=== PATIENT | female | born 1970 | race American Indian/Alaskan Native ===

== ENCOUNTER 2017-03-18 22:54 | Inpatient (IN) | payer MEDICARE ==
[2017-03-18] MEDS ORDERED: DUONEB 0.5 MG-3 MG/3 ML SOLN IH ONE ×2 (23:02→23:36)
[2017-03-18] MEDS ORDERED: MAGNESIUM SULFATE 2GM/50ML 2 GM/50 ML BAG IV ONE (23:22)
[2017-03-18] MEDS ORDERED: PROVENTIL IH ONE (23:37)
[2017-03-18 23:52] LABS: Basophils % (Auto) 0.2 % (0.0-1.8); Hematocrit 38.2 % (30.3-42.9); Mean Corpuscular HGB Conc 31 % (30-34); Mean Corpuscular Hemoglobin 27 pg (28-32); Mean Corpuscular Volume 85 fl (79-97); Platelet Count 221 K/mm3 (140-440); Red Blood Count 4.49 M/mm3 (3.65-5.03); Red Cell Distribution Width 13.5 % (13.2-15.2); White Blood Count 12.7 K/mm3 (4.5-11.0)
--- NOTE | 2017-03-19 00:01 | Emergency Department Report ---
HPI - General Chief Complaint: Adult Asthma Time Seen by Provider: 03/18/17 23:36 - HPI HPI: The patient is a 46-year-old female presents for evaluation of dyspnea. Patient has a history of asthma. The patient reports constant and severe shortness of breath since this afternoon, nearly 12 hours ago, exacerbated with physical activity or exertion, not improved with home albuterol inhaler. She also reports a associated nonproductive cough and wheezing of same duration. She shares that she has a history of endotracheal intubation due to status asthmaticus. hemoptysis, unilateral leg swelling, oral contraceptive use, recent immobilization, history of DVT or PE, recent cancer, history of familial coagulation disorder. ED Past Medical Hx - Past Medical History Hx Hypertension: Yes Hx Heart Attack/AMI: No Hx Congestive Heart Failure: No Hx Diabetes: No Hx Deep Vein Thrombosis: No Hx Pulmonary Embolism: No Hx Asthma: Yes Hx COPD: No Hx Tuberculosis: No Hx HIV: No Additional medical history: (5) previous intubations due to asthma complications - Surgical History Hx Coronary Stent: No Hx Open Heart Surgery: No Hx Pacemaker: No Hx Internal Defibrillator: No Hx Cholecystectomy: No Hx Appendectomy: No Hx Breast Surgery: No Additional Surgical History: tubal ligation - Social History Smoking Status: Never Smoker Substance Use Type: None - Medications Home Medications: Home Medications Medication Instructions Recorded Confirmed Last Taken Type Albuterol Sulfate [Proair 90 mcg IH Q4HR PRN #2 aer.pow.ba 03/21/17 Unknown Rx Respiclick] Azithromycin [Zithromax TAB] 250 mg PO QDAY #5 tablet 03/21/17 Unknown Rx Fluticasone/Salmeterol [Advair 2 puff IH BID #1 blst.w.dev 03/21/17 Unknown Rx Diskus 500-50 mcg] Ipratropium [Atrovent NEB] 0.5 mg IH Q4HR #120 each 03/21/17 Unknown Rx Montelukast [Singulair] 10 mg PO QPM #30 tablet 03/21/17 Unknown Rx Prednisone [predniSONE 10 mg 10 mg PO .TAPER #1 tab.ds.pk 03/21/17 Unknown Rx (6-Day Pack, 21 Tabs)] Ranitidine HCl [Zantac 150 MG TAB] 150 mg PO BID #60 tablet 03/21/17 Unknown Rx ED Review of Systems ROS: Stated complaint: DINA Other details as noted in HPI Constitutional: denies: fever ENT: denies: throat or neck pain Respiratory: reports cough, shortness of breath Cardiovascular: denies: chest pain Endocrine: denies unexplained weight loss or gain Gastrointestinal: denies: abdominal pain, nausea Genitourinary: denies: dysuria Musculoskeletal: denies: leg swelling Skin: denies: rash Neurological: denies: headache Hematological/Lymphatic: denies: easy bleeding or easy bruising Psych: denies sadness or hopelessness Physical Exam - Physical Exam Vital Signs: Vital Signs 03/18/17 03/18/17 03/18/17 23:03 23:20 23:23 Temperature 98 F Pulse Rate 125 H 117 H Pulse Rate [ 122 H Posterior Bilateral Throughout] Respiratory 24 25 H Rate Respiratory 21 Rate [Posterior Bilateral Throughout] Blood Pressure 166/96 Blood Pressure 166/96 [Left] Blood Pressure [Right] O2 Sat by Pulse 99 100 Oximetry 03/18/17 23:31 Temperature Pulse Rate 107 H Pulse Rate [ Posterior Bilateral Throughout] Respiratory 18 Rate Respiratory Rate [Posterior Bilateral Throughout] Blood Pressure Blood Pressure [Left] Blood Pressure 160/82 [Right] O2 Sat by Pulse 100 Oximetry Physical Exam: General: well-nourished, well-developed, no acute distress Head: Normocephalic, atraumatic Eyes: normal sclera ENT: Mucous membranes are pink and moist Neck: trachea midline, neck supple, No neck stiffness, no cervical adenopathy Respiratory: Diminished breath sounds and wheezing present throughout lung schuster bilaterally, positive costal retractions, mild respirtatory distress Cardio: S1 and S2 present, no murmurs, rubs, gallops, capillary refill is brisk Abdomen: Normoactive bowel sounds, soft abdomen, no rigidity, no guarding or rebound tenderness Musc: No pitting edema Skin: No rash Neuro: no facial drooping, normal speech Psych: Normal affect ED Course Vital Signs 03/18/17 03/18/17 03/18/17 23:03 23:20 23:23 Temperature 98 F Pulse Rate 125 H 117 H Pulse Rate [ 122 H Posterior Bilateral Throughout] Respiratory 24 25 H Rate Respiratory 21 Rate [Posterior Bilateral Throughout] Blood Pressure 166/96 Blood Pressure 166/96 [Left] Blood Pressure [Right] O2 Sat by Pulse 99 100 Oximetry 03/18/17 23:31 Temperature Pulse Rate 107 H Pulse Rate [ Posterior Bilateral Throughout] Respiratory 18 Rate Respiratory Rate [Posterior Bilateral Throughout] Blood Pressure Blood Pressure [Left] Blood Pressure 160/82 [Right] O2 Sat by Pulse 100 Oximetry ED Medical Decision Making - Lab Data Result diagrams: 03/20/17 04:24 03/20/17 04:24 - Medical Decision Making The patient was seen and examined by myself. The patient is placed on a personal property assessor and continuous pulse ox. On initial evaluation, the patient was found to be in no distress. Evaluation orders were placed. The patient is given a DuoNeb breathing treatment, IV magnesium, and IV Solu-Medrol for txt of asthma. Chest x-ray negative for focal consolidation, pleural effusions, pulmonary congestion, pneumothorax, or other acute cardio pulmonary disease process. Lab results reveal elevated WBC 12, and otherwise are grossly not concerning. On reevaluation the patient's found to remain with wheezing throughout lung schuster, on the work of breathing significantly improved. As patient remains tachypnea with wheezing throughout lung schuster, patient symptoms are consistent with status asthmaticus. The on-call hospitalist service was contacted. They agreed to admit the patient for further treatment and close monitoring. The ED admit order was placed. The patient was admitted in guarded condition. Critical care attestation.: If time is entered above; I have spent that time in minutes in the direct care of this critically ill patient, excluding procedure time. ED Disposition Clinical Impression: Acute exacerbation of COPD with asthma Status asthmaticus Qualifiers: Asthma severity: mild persistent Qualified Code(s): J45.32 - Mild persistent asthma with status asthmaticus Disposition: OP ADMITTED IP TO THIS HOSP Is pt being admited?: Yes Does the pt Need Aspirin: Yes Condition: Serious Time of Disposition: 23:58
[2017-03-19 01:35] LABS: Anion Gap 17 mmol/L; BUN/Creatinine Ratio 18.88; Blood Urea Nitrogen 17 mg/dL (7-17); Calcium 8.5 mg/dL (8.4-10.2); Carbon Dioxide 24 mmol/L (22-30); Chloride 102.2 mmol/L (98-107); Glucose 143 mg/dL (65-100); Potassium 3.6 mmol/L (3.6-5.0); Sodium 140 mmol/L (137-145)
[2017-03-19] MEDS ORDERED: MILK OF MAGNESIA PO PRN (02:31)
[2017-03-19] MEDS ORDERED: TYLENOL PO PRN (02:31)
[2017-03-19] MEDS ORDERED: DULCOLAX PR PRN (02:31)
[2017-03-19] MEDS ORDERED: ZOFRAN IV PRN (02:31)
--- NOTE | 2017-03-19 02:33 | History and Physical Report ---
History of Present Illness Date of examination: 03/19/17 History of present illness: 45-year-old woman with a history of asthma comes to emergency room with complaints of shortness of breath, nonproductive cough that started today. She used her nebulizer treatments without success. Patient states her house was very hot which flared her asthma Patient denies chest pain, palpitation, abdominal pain, hematochezia, dysuria, frequency, focal weakness, dysarthria, fever chills, polydipsia polyuria, hot or cold intolerance, easy bruisability, or rash or bleeding from mucosal membrane, rhinorrhea, epistaxis, earache, tinnitus, blurry vision, eye discharge , anxiety, depression. Other review of systems negative PAST SURGICAL HISTORY: Tubal ligation SOCIAL HISTORY: Denies alcohol, tobacco, drugs FAMILY HISTORY: Hypertension Medications and Allergies Allergies Allergy/AdvReac Type Severity Reaction Status Date / Time No Known Allergies Allergy Verified 02/01/16 07:55 Home Medications Medication Instructions Recorded Confirmed Last Taken Type Albuterol Sulfate [Proair 90 mcg IH Q4HR PRN #2 aer.pow.ba 08/03/16 03/18/17 Rx Respiclick] Fluticasone/Salmeterol [Advair 2 puff IH BID #1 blst.w.dev 08/03/16 03/18/17 Rx Diskus 500-50 mcg] Ipratropium [Atrovent NEB] 0.5 mg IH Q4HR #2 ml 08/03/16 03/18/17 03/18/17 Rx Montelukast [Singulair] 10 mg PO QPM #30 tablet 08/03/16 03/18/17 03/18/17 Rx Ranitidine HCl [Zantac 150 MG TAB] 150 mg PO BID #60 tablet 08/03/16 03/18/17 Rx Azithromycin [Zithromax TAB] 500 mg PO QDAY #3 tablet 02/28/17 03/18/17 Rx predniSONE [Deltasone] 50 mg PO QDAY #5 tab 02/28/17 03/18/17 03/18/17 Rx Exam - Physical Exam Narrative exam: Gen. appearance: Patient lying in bed, no apparent distress HEENT: Normocephalic, atraumatic, pupils equally round and reactive to light, extraocular movement intact, and no sclericterus,. No JVD or thyromegaly or nodule,neck supple, no carotid bruit ,mucous membranes moist, no exudate or erythema Heart: S1, S2, regular rate and rhythm Lungs:wheezing bilaterally, breathing comfortable Abdomen: Positive bowel sounds, nontender, nondistended, no organomegaly Extremity: No edema, cyanosis, clubbing Skin: No rash, nodules, warm, dry Neuro: Oriented 3, cranial nerves II-12 intact, speech is fluent, motor and sensory intact - Constitutional Vitals: Temp Pulse Resp BP Pulse Ox 98 F 97 H 17 124/58 100 03/18/17 23:03 03/19/17 02:15 03/19/17 02:15 03/19/17 02:15 03/19/17 02:15 Results - Labs CBC & Chem 7: 03/18/17 23:43 03/19/17 00:37 Labs: Abnormal lab results 03/18/17 03/19/17 Range/Units 23:43 00:37 WBC 12.7 H (4.5-11.0) K/mm3 MCH 27 L (28-32) pg Eos % (Auto) 9.0 H (0.0-4.3) % [place] # 0.9 H (0.0-0.8) K/mm3 Eos # 1.1 H (0.0-0.4) K/mm3 Seg Neutrophils # 8.9 H (1.8-7.7) K/mm3 Glucose 143 H (65-100) mg/dL - Imaging and Cardiology EKG: image reviewed Chest x-ray: image reviewed Assessment and Plan Asthma exacerbation Admit to medicine Start IV high-dose steroids, nebulizer treatments, DVT prophylaxis
[2017-03-19 06:45] LABS: ISTAT Base Excess -3; ISTAT HCO3 22.3; ISTAT PCO2 41.4 (35-45); ISTAT PO2 98 (80-105); ISTAT SO2 97; ISTAT TCO2 24
[2017-03-19] MEDS: DUONEB 0.5 MG-3 MG/3 ML SOLN IH SCH ×3 (07:35→20:27)
--- NOTE | 2017-03-19 07:41 | Admit Criteria Form ---
Admission Criteria Documentation: ASTHMA Clinical Indications for Admission to Inpatient Care (Place 'X' for any and all applicable criteria): Admission is indicated for ANY ONE of the following (1)(2)(3)(4)(5): [ ]I. Absent or markedly diminished breath sounds (silent chest) [ ]II. Oxygen saturation < 92% [ ]III. PaCO2 = / > 42 mm Hg (5.6 kPa) [ ]IV. Peak expiratory flow rate < 40% of predicted or personal best after treatment. [ ]V. Peak expiratory flow rate < 33% of predicted or personal before after treatment [ ]. Change in mental status [ ]VII. Ventilatory support required [ ]VIII. PaO2 < 60 mm Hg (8.0 kPa) [ ]IX. Cyanosis [ ]X. Cardiac dysrhythmia (e.g., bradycardia) [ ]XI. Hemodynamic instability [ ]XII. Radiographic evidence of complication requiring inpatient treatment (e.g., pneumonia, pneumothorax) [X]XIII. Inpatient admission required rather than observation care (also use Asthma: Observation Care guideline as appropriate) because of ANY ONE of the following: [X]a) Respiratory finding that is severe or persistent (eg, dyspnea, tachypnea, accessory muscle use) [ ]b) Airflow measurements less than 60% of predicted or personal best that persist (e.g., over 24 hours) or worsen despite treatments [ ]c) Supplemental oxygen or respiratory treatments for over 24 hours that are performable only in acute inpatient setting [ ]d) Other condition, treatment or monitoring requiring inpatient admission. Extended stay beyond goal length of stay may be needed for (26)(27)(28): [ ]a) Severe respiratory failure (23) (29) (30) [ ]b) Secondary causes and complications (25) [ ]c) Status asthmaticus [ ]d) Chronic obstructive asthma [ ]e) Older patients (29) [ ]f) Slow resolution [ ]g) Clinically significant exacerbation of comorbidities (eg, davey. heart failure, atrial fibrillation) The original [employer] content created by [employer] has been revised. The portions of the content which have been revised are identified through the use of italic text or in bold, and [employer] has neither reviewed nor approved the modified material. All other unmodified content is copyright [employer] Please see references footnoted in the original [facility] edition 2016 Admission Criteria Met: Yes
--- NOTE | 2017-03-19 08:08 | XRay Report ---
AP CHEST : 03/19/17 00:11 CLINICAL: Chest pain. COMPARISON:02/26/17 FINDINGS: Normal heart and pulmonary vessels. The lungs are normally expanded and clear. The bones and soft tissues are unremarkable. IMPRESSION: Normal chest.
[2017-03-19] MEDS: LOVENOX SUB-Q SCH (11:30)
[2017-03-19] MEDS: ZITHROMAX PO SCH (15:37)
[2017-03-19] MEDS: LEVAQUIN 750MG/150ML 750 MG/150 ML BAG IV SCH (15:37)
[2017-03-19] MEDS: SINGULAIR PO SCH (18:30)
[2017-03-19] MEDS ORDERED: NON-FORMULARY (Ranitidine Hcl [Zantac 150 Mg Tab] 150 MG) PO SCH (22:00)
[2017-03-19] MEDS: PEPCID PO SCH (22:18)
[2017-03-20] MEDS: DUONEB 0.5 MG-3 MG/3 ML SOLN IH SCH ×4 (01:29→20:10)
[2017-03-20 05:11] LABS: Hematocrit 37.9 % (30.3-42.9); Hemoglobin 11.8 gm/dl (10.1-14.3); Mean Corpuscular HGB Conc 31 % (30-34); Mean Corpuscular Hemoglobin 27 pg (28-32); Mean Corpuscular Volume 87 fl (79-97); Platelet Count 178 K/mm3 (140-440); Red Blood Count 4.36 M/mm3 (3.65-5.03); Red Cell Distribution Width 13.7 % (13.2-15.2); White Blood Count 17.3 K/mm3 (4.5-11.0)
[2017-03-20 05:22] LABS: Anion Gap 19 mmol/L; Blood Urea Nitrogen 14 mg/dL (7-17); Calcium 8.9 mg/dL (8.4-10.2); Carbon Dioxide 19 mmol/L (22-30); Glucose 166 mg/dL (65-100); Sodium 138 mmol/L (137-145)
[2017-03-20 05:46] LABS: Potassium 4.4 mmol/L (3.6-5.0)
[2017-03-20 06:15] LABS: Basophils % (Manual) 0 % (0.0-1.8); Blastocytes % (Manual) 0 %; Eosinophils % (Manual) 0 % (0.0-4.3)
[2017-03-20 06:16] LABS: Diff Status Complete; RBC Morphology Normal
--- NOTE | 2017-03-20 08:46 | Progress Note ---
Assessment and Plan Assessment and plan: 46-year-old woman with past medical history of COPD/asthma who presents with COPD exacerbation 1. COPD exacerbation Continue steroids and nebulizers and antibiotics 2. Acute hypoxic respiratory failure Continue oxygen supplementation, wean off oxygen when able History Interval history: She continues to have shortness of breath wheezing and cough. Slightly improved Hospitalist Physical - Physical exam Narrative exam: General: Patient appears well in no distress HEENT: MMM, EOMI cardiac: S1-S2 heard lungs:improved air entry, rare expiratory wheezing abdomen: soft, nontender, nondistended bowel sounds positive extremities: no edema clubbing or cyanosis Skin: no rash or lesion Neuro: no focal deficit Psych: appropriate behavior and mood, cognition intact - Constitutional Vitals: Temp Pulse Resp BP Pulse Ox 98.3 F 94 H 18 118/70 96 03/20/17 07:35 03/20/17 07:35 03/20/17 07:35 03/20/17 07:35 03/20/17 07:35 Results - Labs CBC & Chem 7: 03/20/17 04:24 03/20/17 04:24 Labs: Laboratory Last Values WBC 17.3 K/mm3 (4.5-11.0) H 03/20/17 04:24 RBC 4.36 M/mm3 (3.65-5.03) 03/20/17 04:24 Hgb 11.8 gm/dl (10.1-14.3) 03/20/17 04:24 Hct 37.9 % (30.3-42.9) 03/20/17 04:24 MCV 87 fl (79-97) 03/20/17 04:24 MCH 27 pg (28-32) L 03/20/17 04:24 MCHC 31 % (30-34) 03/20/17 04:24 RDW 13.7 % (13.2-15.2) 03/20/17 04:24 Plt Count 178 K/mm3 (140-440) 03/20/17 04:24 Lymph % (Auto) 13.9 % (13.4-35.0) 03/18/17 23:43 Davidson % (Auto) 7.2 % (0.0-7.3) 03/18/17 23:43 Eos % (Auto) 9.0 % (0.0-4.3) H 03/18/17 23:43 Baso % (Auto) 0.2 % (0.0-1.8) 03/18/17 23:43 Lymph # 1.8 K/mm3 (1.2-5.4) 03/18/17 23:43 Davidson # 0.9 K/mm3 (0.0-0.8) H 03/18/17 23:43 Eos # 1.1 K/mm3 (0.0-0.4) H 03/18/17 23:43 Baso # 0.0 K/mm3 (0.0-0.1) 03/18/17 23:43 Add Manual Diff Complete 03/20/17 04:24 Total Counted 100 03/20/17 04:24 Seg Neutrophils % Coremaker Bench 03/20/17 04:24 Seg Neuts % (Manual) 98.0 % (40.0-70.0) H 03/20/17 04:24 Band Neutrophils % 0 % 03/20/17 04:24 Lymphocytes % (Manual) 0 % (13.4-35.0) L 03/20/17 04:24 Reactive Lymphs % (Man) 0 % 03/20/17 04:24 Monocytes % (Manual) 2.0 % (0.0-7.3) 03/20/17 04:24 Eosinophils % (Manual) 0 % (0.0-4.3) 03/20/17 04:24 Basophils % (Manual) 0 % (0.0-1.8) 03/20/17 04:24 Metamyelocytes % 0 % 03/20/17 04:24 Myelocytes % 0 % 03/20/17 04:24 Promyelocytes % 0 % 03/20/17 04:24 Blast Cells % 0 % 03/20/17 04:24 Nucleated RBC % Not Reportable 03/20/17 04:24 Seg Neutrophils # 8.9 K/mm3 (1.8-7.7) H 03/18/17 23:43 Seg Neutrophils # Man 17.0 K/mm3 (1.8-7.7) H 03/20/17 04:24 Band Neutrophils # 0.0 K/mm3 03/20/17 04:24 Lymphocytes # (Manual) 0.0 K/mm3 (1.2-5.4) L 03/20/17 04:24 Abs React Lymphs (Man) 0.0 K/mm3 03/20/17 04:24 Monocytes # (Manual) 0.3 K/mm3 (0.0-0.8) 03/20/17 04:24 Eosinophils # (Manual) 0.0 K/mm3 (0.0-0.4) 03/20/17 04:24 Basophils # (Manual) 0.0 K/mm3 (0.0-0.1) 03/20/17 04:24 Metamyelocytes # 0.0 K/mm3 03/20/17 04:24 Myelocytes # 0.0 K/mm3 03/20/17 04:24 Promyelocytes # 0.0 K/mm3 03/20/17 04:24 Blast Cells # 0.0 K/mm3 03/20/17 04:24 WBC Morphology Not Reportable 03/20/17 04:24 Hypersegmented Neuts Not Reportable 03/20/17 04:24 Hyposegmented Neuts Not Reportable 03/20/17 04:24 Hypogranular Neuts Not Reportable 03/20/17 04:24 Smudge Cells Not Reportable 03/20/17 04:24 Toxic Granulation Not Reportable 03/20/17 04:24 Toxic Vacuolation Not Reportable 03/20/17 04:24 Dohle Bodies Not Reportable 03/20/17 04:24 Pelger-Huet Anomaly Not Reportable 03/20/17 04:24 Elvin Rods Not Reportable 03/20/17 04:24 Platelet Estimate Appears normal 03/20/17 04:24 Clumped Platelets Not Reportable 03/20/17 04:24 Plt Clumps, EDTA Not Reportable 03/20/17 04:24 Large Platelets Not Reportable 03/20/17 04:24 Giant Platelets Not Reportable 03/20/17 04:24 Platelet Satelliting Not Reportable 03/20/17 04:24 Plt Morphology Comment Not Reportable 03/20/17 04:24 RBC Morphology Normal 03/20/17 04:24 Dimorphic RBCs Not Reportable 03/20/17 04:24 Polychromasia Not Reportable 03/20/17 04:24 Hypochromasia Not Reportable 03/20/17 04:24 Poikilocytosis Not Reportable 03/20/17 04:24 Anisocytosis Not Reportable 03/20/17 04:24 Microcytosis Not Reportable 03/20/17 04:24 Macrocytosis Not Reportable 03/20/17 04:24 Spherocytes Not Reportable 03/20/17 04:24 Pappenheimer Bodies Not Reportable 03/20/17 04:24 Sickle Cells Not Reportable 03/20/17 04:24 Target Cells Not Reportable 03/20/17 04:24 Tear Drop Cells Not Reportable 03/20/17 04:24 Ovalocytes Not Reportable 03/20/17 04:24 Helmet Cells Not Reportable 03/20/17 04:24 Buckner-[place] Bodies Not Reportable 03/20/17 04:24 [place] Rings Not Reportable 03/20/17 04:24 Yusra Cells Not Reportable 03/20/17 04:24 Bite Cells Not Reportable 03/20/17 04:24 Crenated Cell Not Reportable 03/20/17 04:24 Elliptocytes Not Reportable 03/20/17 04:24 Acanthocytes (Spur) Not Reportable 03/20/17 04:24 Rouleaux Not Reportable 03/20/17 04:24 Hemoglobin C Crystals Not Reportable 03/20/17 04:24 Schistocytes Not Reportable 03/20/17 04:24 Malaria parasites Not Reportable 03/20/17 04:24 Sean Bodies Not Reportable 03/20/17 04:24 Hem Pathologist Commnt No 03/20/17 04:24 POC ABG pH 7.340 (7.35-7.45) L 03/19/17 06:35 POC ABG pCO2 41.4 (35-45) 03/19/17 06:35 POC ABG pO2 98 (80-105) 03/19/17 06:35 POC ABG HCO3 22.3 03/19/17 06:35 POC ABG Total CO2 24 03/19/17 06:35 POC ABG O2 Sat 97 03/19/17 06:35 POC ABG Base Excess -3 03/19/17 06:35 FiO2 30 % 03/19/17 06:35 Sodium 138 mmol/L (137-145) 03/20/17 04:24 Potassium 4.4 mmol/L (3.6-5.0) D 03/20/17 04:24 Chloride 104.0 mmol/L (98-107) 03/20/17 04:24 Carbon Dioxide 19 mmol/L (22-30) L 03/20/17 04:24 Anion Gap 19 mmol/L 03/20/17 04:24 BUN 14 mg/dL (7-17) 03/20/17 04:24 Creatinine 0.8 mg/dL (0.7-1.2) 03/20/17 04:24 Estimated GFR > 60 ml/min 03/20/17 04:24 BUN/Creatinine Ratio 17.50 % 03/20/17 04:24 Glucose 166 mg/dL (65-100) H 03/20/17 04:24 POC Glucose 149 (70-105) H 03/20/17 06:22 Calcium 8.9 mg/dL (8.4-10.2) 03/20/17 04:24 NT-Pro-B Natriuret Pep 12.65 pg/mL (0-450) 03/19/17 00:37 HCG, Qual Negative (Negative) 03/18/17 23:43
[2017-03-20] MEDS ORDERED: AZITHROMYCIN 500 MG PO SCH (10:00)
[2017-03-20] MEDS: LEVAQUIN 750MG/150ML 750 MG/150 ML BAG IV SCH (10:24)
[2017-03-20] MEDS: PEPCID PO SCH ×2 (10:25→22:00)
[2017-03-20] MEDS: ZITHROMAX PO SCH (10:25)
[2017-03-20] MEDS: LOVENOX SUB-Q SCH (10:26)
[2017-03-20] MEDS: SINGULAIR PO SCH (18:04)
[2017-03-21] MEDS: DUONEB 0.5 MG-3 MG/3 ML SOLN IH SCH ×3 (01:30→12:59)
--- NOTE | 2017-03-21 08:05 | Discharge Summary ---
Providers - Providers Date of Admission: 03/19/17 02:31 Attending physician: ADRIÁN PARSONS MD Primary care physician: SMOKE ROOM OPERATOR Hospitalization Condition: Stable Hospital course: 46-year-old woman with past medical history of COPD/asthma who presents with COPD exacerbation, she was found to have acute hypoxic respiratory failure. She was treated with supplemental oxygen, steroids and nebulizers and antibiotics. She admitted that she had run out of her home inhalers and nebulizer treatments. She has not followed for her construction equipment mechanic Dr. Leoanrd in over 6 months. She was counseled about compliance, she clinically improved with treatments and was improved upon discharge 1. COPD exacerbation Continue steroids and nebulizers and antibiotics 2. Acute hypoxic respiratory failure Continue oxygen supplementation, wean off oxygen when able Disposition: DISCHARGED TO HOME OR SELFCARE Time spent for discharge: 35 minutes Core Measure Documentation - Palliative Care Palliative Care/ Comfort Measures: Not Applicable - Core Measures Any of the following diagnoses?: none - Heart Failure Discharge Requirements VICTOR HUGO/ARB for LVSD if EF <40%: Yes Exam - Constitutional Vitals: Temp Pulse Resp BP Pulse Ox 98.1 F 77 18 130/70 98 03/21/17 07:30 03/21/17 07:30 03/21/17 07:30 03/21/17 07:30 03/21/17 07:30 General appearance: Present: no acute distress, well-nourished - EENT Eyes: Present: PERRL ENT: hearing intact, clear oral mucosa - Neck Neck: Present: supple, normal ROM - Respiratory Respiratory effort: normal Respiratory: bilateral: CTA - Cardiovascular Heart Sounds: Present: S1 & S2. Absent: rub, click - Extremities Extremities: pulses symmetrical, No edema Peripheral Pulses: within normal limits - Abdominal General gastrointestinal: Present: soft, non-tender, non-distended, normal bowel sounds Female genitourinary: Present: normal - Integumentary Integumentary: Present: clear, warm, dry - Musculoskeletal Musculoskeletal: gait normal, strength equal bilaterally - Psychiatric Psychiatric: appropriate mood/affect, intact judgment & insight - Neurologic Neurologic: CNII-XII intact, moves all extremities Plan Follow up with: PRIMARY CARE, [Primary Care Provider] - 7 Days Prescriptions: Albuterol Sulfate [Proair Respiclick] 90 mcg IH Q4HR PRN #2 aer.pow.ba PRN Reason: Wheezing Azithromycin [Zithromax TAB] 250 mg PO QDAY #5 tablet Fluticasone/Salmeterol [Advair Diskus 500-50 mcg] 2 puff IH BID #1 blst.w.dev Ipratropium [Atrovent NEB] 0.5 mg IH Q4HR #120 each Montelukast [Singulair] 10 mg PO QPM #30 tablet Prednisone [predniSONE 10 mg (6-Day Pack, 21 Tabs)] 10 mg PO .TAPER #1 tab.ds.pk Ranitidine HCl [Zantac 150 MG TAB] 150 mg PO BID #60 tablet
[2017-03-21] MEDS: LEVAQUIN 750MG/150ML 750 MG/150 ML BAG IV SCH ×2 (10:24→11:17)
[2017-03-21] MEDS: ZITHROMAX PO SCH (10:25)
[2017-03-21] MEDS: LOVENOX SUB-Q SCH (10:26)
[2017-03-21] MEDS: PEPCID PO SCH (10:26)
[2017-03-21] MEDS ORDERED: LEVAQUIN PO SCH (13:00)
[2017-03-21 15:33] VITALS: BP 140/80
[2017-03-22] MEDS ORDERED: LEVAQUIN PO ONE (11:30)
== END 2017-03-21 13:40 | disposition home or self-care (01) | DRG 189 ==
LOC: ED 22:54 → 3A 03-19 02:31
PROVIDERS: ADMIT Internal Medicine; ATTEND Internal Medicine
PROC: 4A033R1 Measurement of Arterial Saturation, Peripheral, Percutaneous Approach (ICD-10-PCS; principal; 2017-03-19)
DX: J96.01 Acute respiratory failure with hypoxia (principal); J44.1 Chronic obstructive pulmonary disease with (acute) exacerbation; J45.902 Unspecified asthma with status asthmaticus; Z98.51 Tubal ligation status; Z82.49 Family history of ischemic heart disease and other diseases of the circulatory system
CPT/HCPCS: 36415; 36600; 71010; 80048; 82803; 82962; 83880; 84703; 85007; 85025; 94640; 94760; 96365; 96375; J1650; J1956; J2930; J3475

== ENCOUNTER 2019-09-13 18:18 | Inpatient (IN) | payer MEDICARE ==
[2019-09-13] MEDS ORDERED: PROVENTIL IH ONE (18:30)
[2019-09-13] MEDS ORDERED: ATROVENT IH ONE (18:30)
[2019-09-13] MEDS ORDERED: ADRENALINE P/F SUB-Q ONE (18:30)
--- NOTE | 2019-09-13 18:33 | Emergency Department Report ---
<NIECY ROBERTSON - Last Filed: 09/13/19 18:27> ED Shortness of Breath HPI - General Stated Complaint: ASTHMA/DINA Time Seen by Provider: 09/13/19 18:26 Source: patient, EMS, old records reviewed Limitations: No Limitations - History of Present Illness Initial Comments: 49-year-old -Mosoth[place] female presents to the emergency room via EMS for shortness of breath 3 days. Patient reports that she has gotten worse today. Patient denies any URI symptoms, fever, runny nose, nasal congestion , diaphoresis, nausea and vomiting. Patient has a past medical history of asthma with history of 5 intubations and multiple hospital visits. She reports that her symptoms today are similar to symptoms she says in the past with her asthma exacerbation. MD Complaint: shortness of breath Onset/Timin -: days(s) Pain Scale: 0 Improves With: oxygen, bronchodilators, upright position Known History Of: asthma Associated Symptoms: denies other symptoms Treatments Prior to Arrival: bronchodilator - Related Data Previous Rx's Medication Instructions Recorded Last Taken Type Albuterol Sulfate [Proair 90 mcg IH Q4HR PRN #2 aer.pow.ba 03/21/17 Unknown Rx Respiclick] Azithromycin [Zithromax TAB] 250 mg PO QDAY #5 tablet 03/21/17 Unknown Rx Fluticasone/Salmeterol [Advair 2 puff IH BID #1 blst.w.dev 03/21/17 Unknown Rx Diskus 500-50 mcg] Ipratropium [Atrovent NEB] 0.5 mg IH Q4HR #120 each 03/21/17 Unknown Rx Montelukast [Singulair] 10 mg PO QPM #30 tablet 03/21/17 Unknown Rx Prednisone [predniSONE 10 mg 10 mg PO .TAPER #1 tab.ds.pk 03/21/17 Unknown Rx (6-Day Pack, 21 Tabs)] raNITIdine HCl [Zantac] 150 mg PO BID #60 tablet 03/21/17 Unknown Rx Allergies Allergy/AdvReac Type Severity Reaction Status Date / Time No Known Allergies Allergy Verified 02/01/16 07:55 ED Review of Systems Comment: All other systems reviewed and negative Respiratory: cough, shortness of breath, wheezing ED Past Medical Hx - Past Medical History Hx Hypertension: Yes Hx Heart Attack/AMI: No Hx Congestive Heart Failure: No Hx Diabetes: No Hx Deep Vein Thrombosis: No Hx Pulmonary Embolism: No Hx Asthma: Yes Hx COPD: No Hx Tuberculosis: No Hx HIV: No Additional medical history: (5) previous intubations due to asthma complications - Surgical History Hx Coronary Stent: No Hx Open Heart Surgery: No Hx Pacemaker: No Hx Internal Defibrillator: No Hx Cholecystectomy: No Hx Appendectomy: No Hx Breast Surgery: No Additional Surgical History: tubal ligation - Social History Smoking Status: Never Smoker Substance Use Type: None - Medications Home Medications: Home Medications Medication Instructions Recorded Confirmed Last Taken Type Albuterol Sulfate [Proair 90 mcg IH Q4HR PRN #2 aer.pow.ba 03/21/17 Unknown Rx Respiclick] Azithromycin [Zithromax TAB] 250 mg PO QDAY #5 tablet 03/21/17 Unknown Rx Fluticasone/Salmeterol [Advair 2 puff IH BID #1 blst.w.dev 03/21/17 Unknown Rx Diskus 500-50 mcg] Ipratropium [Atrovent NEB] 0.5 mg IH Q4HR #120 each 03/21/17 Unknown Rx Montelukast [Singulair] 10 mg PO QPM #30 tablet 03/21/17 Unknown Rx Prednisone [predniSONE 10 mg 10 mg PO .TAPER #1 tab.ds.pk 03/21/17 Unknown Rx (6-Day Pack, 21 Tabs)] raNITIdine HCl [Zantac] 150 mg PO BID #60 tablet 03/21/17 Unknown Rx ED Physical Exam - General General appearance: alert, in distress, other (comes in with nebulizer treatment) - Head Head exam: Present: atraumatic, normocephalic - Eye Eye exam: Present: normal appearance, EOMI. Absent: scleral icterus - ENT ENT exam: Present: mucous membranes moist, normal external ear exam - Neck Neck exam: Present: normal inspection, full ROM - Respiratory Respiratory exam: Present: wheezes, accessory muscle use, prolonged expiratory - Cardiovascular Cardiovascular Exam: Present: tachycardia - GI/Abdominal GI/Abdominal exam: Present: soft, normal bowel sounds - Rectal Rectal exam: Present: deferred - Neurological Exam Neurological exam: Present: alert, oriented X3 - Psychiatric Psychiatric exam: Present: normal affect, normal mood - Skin Skin exam: Present: warm, dry, intact, normal color. Absent: rash ED Medical Decision Making - Medical Decision Making 49-year-old -Mos[place] female presents to the emergency room via EMS for shortness of breath 3 days. Patient reports that she has gotten worse today. Patient denies any URI symptoms, fever, runny nose, nasal congestion , diaphoresis, nausea and vomiting. Patient has a past medical history of asthma with history of 5 intubations and multiple hospital visits. She reports that her symptoms today are similar to symptoms she says in the past with her asthma exacerbation. Chest x-ray, Atrovent 1 mg neb treatment, albuterol 10 mg neb treatment, patient has received magnesium and Solu-Medrol and albuterol 7.5 mg by EMS. Patient will be given epi 0.3 mg subcutaneous. Patient will be placed on BiPAP with IPAP of 14 and EPAP of 8. Normal saline bolus ED Disposition Clinical Impression: Status asthmaticus Qualifiers: Asthma severity: mild persistent Qualified Code(s): J45.32 - Mild persistent asthma with status asthmaticus Disposition: 09 OP ADMIT IP TO THIS HOSP Is pt being admited?: Yes Does the pt Need Aspirin: Yes Condition: Serious <JENI PAREDES - Last Filed: 09/13/19 23:48> ED Review of Systems ROS: Stated complaint: ASTHMA/DINA Other details as noted in HPI ED Course Vital Signs 09/13/19 09/13/19 09/13/19 18:20 18:32 18:37 Temperature 98.2 F Pulse Rate 118 H Respiratory 22 22 Rate Blood Pressure 140/60 O2 Sat by Pulse 100 100 100 Oximetry 09/13/19 09/13/19 09/13/19 18:46 18:54 19:00 Temperature Pulse Rate 107 H 102 H 110 H Respiratory 28 H 20 21 Rate Blood Pressure 140/60 145/61 145/61 O2 Sat by Pulse 100 100 100 Oximetry 09/13/19 09/13/19 09/13/19 19:15 19:31 19:45 Temperature Pulse Rate 116 H 108 H 108 H Respiratory 21 19 19 Rate Blood Pressure 144/72 141/73 136/67 O2 Sat by Pulse 100 100 100 Oximetry 09/13/19 09/13/19 09/13/19 20:00 20:15 20:31 Temperature Pulse Rate 110 H 106 H 105 H Respiratory 15 20 21 Rate Blood Pressure 137/87 152/68 171/63 O2 Sat by Pulse 100 100 100 Oximetry 09/13/19 09/13/19 09/13/19 20:45 21:01 21:15 Temperature Pulse Rate 105 H 104 H 106 H Respiratory 17 16 18 Rate Blood Pressure 143/77 123/67 123/67 O2 Sat by Pulse 100 99 100 Oximetry 09/13/19 09/13/19 21:31 22:24 Temperature Pulse Rate 123 H 118 H Respiratory 18 20 Rate Blood Pressure 149/89 O2 Sat by Pulse 100 100 Oximetry ED Medical Decision Making - Lab Data Result diagrams: 09/13/19 18:46 09/13/19 18:46 Critical Care Time: Yes Critical care time in (mins) excluding proc time.: 35 Critical care attestation.: If time is entered above; I have spent that time in minutes in the direct care of this critically ill patient, excluding procedure time. ED Disposition Is pt being admited?: Yes
[2019-09-13] MEDS ORDERED: NACL 0.9% 500 ML 500 ML IV ONE (18:35)
--- NOTE | 2019-09-13 18:35 | Event Note ---
Date of service: 09/13/19 Face to Face: 49-year-old female with history of obesity and asthma, previously admitted to the hospital for asthma, reports intubation brought to the hospital by EMS for chest wall pain, cough and wheezing. EMS gave steroids, magnesium, and albuterol. Upon arrival to the ER, the patient is using accessory muscles, and his wheezing, and appears to be in moderate distress. She is protecting her airway at this time. Additional albuterol, Atrovent ordered, IV fluids ordered, BiPAP ordered, screening laboratory studies ordered, subcutaneous epinephrine has been ordered. Patient to be admitted to the medical service once initial diagnostics have resulted. She endorses that she is not , and endorses no DVT or pulmonary embolism risk factors. Vital Signs 09/13/19 09/13/19 09/13/19 18:20 18:37 18:54 Temperature 98.2 F Pulse Rate 118 H 102 H Respiratory 22 22 20 Rate Blood Pressure 140/60 145/61 O2 Sat by Pulse 100 100 100 Oximetry
[2019-09-13 19:10] LABS: Hematocrit 41.2 % (30.3-42.9); Hemoglobin 13.1 gm/dl (10.1-14.3); Mean Corpuscular HGB Conc 32 % (30-34); Mean Corpuscular Volume 86 fl (79-97); Platelet Count 222 K/mm3 (140-440); Red Blood Count 4.77 M/mm3 (3.65-5.03); Red Cell Distribution Width 13.8 % (13.2-15.2)
[2019-09-13 19:25] LABS: INR 0.99 (0.87-1.13)
[2019-09-13 19:27] LABS: BUN/Creatinine Ratio 9; Blood Urea Nitrogen 7 mg/dL (7-17); Calcium 9.2 mg/dL (8.4-10.2); Hemolysis Index 3
--- NOTE | 2019-09-13 19:45 | XRay Report ---
CHEST 1 VIEW 1919 INDICATION / CLINICAL INFORMATION: sob. COMPARISON: 03/19/2017 FINDINGS: SUPPORT DEVICES: None HEART / MEDIASTINUM: No significant abnormality. LUNGS / PLEURA: No significant pulmonary or pleural abnormality. No pneumothorax. ADDITIONAL FINDINGS: No significant additional findings. IMPRESSION: No significant acute abnormality Signer Name: Christophe Wharton MD Signed: 09/13/2019 7:40 PM Workstation Name: [id number]
[2019-09-13] MEDS ORDERED: PERCOCET 5/325 PO PRN (20:46)
[2019-09-13] MEDS ORDERED: TYLENOL PO PRN (20:46)
[2019-09-13] MEDS ORDERED: SODIUM CHLORIDE FLUSH SYRINGE 10 ML IV PRN (20:46)
[2019-09-13] MEDS ORDERED: PROVENTIL IH PRN (20:46)
[2019-09-13] MEDS ORDERED: ZOFRAN IV PRN (20:46)
[2019-09-13] MEDS ORDERED: SOLU-Medrol IV SCH (22:00)
[2019-09-13] MEDS: SOLU-Medrol IV SCH (22:29)
--- NOTE | 2019-09-13 22:31 | History and Physical Report ---
<ZHANGTRINITY Maureen - Last Filed: 09/13/19 22:18> History of Present Illness Date of examination: 09/13/19 Date of admission: 09/13/19 20:49 Chief complaint: Difficulty in breathing, asthma exacerbation History of present illness: 49-year-old -Qat[place] female with history of asthma, intubation 5, hypertension who presents to [facility] ED via EMS with complaint of difficulty breathing. Patient states that for the past 3 days she has been experiencing progressively worsening shortness of breath. She has tried home nebulizer treatments with no relief. She was given steroids, magnesium, and albuterol by EMS. Upon arrival to our facility it was noted that pt was using sensory muscles and continued to display difficulty in breathing. She was placed on BiPAP, given nebulizer treatments, subcutaneous epinephrine and 500 mL fluid bolus. At the time upon examination patient is sitting up in stretcher. She is awake, alert and oriented 3. She remains on BiPAP saturation 100%. He is able to answer yes no questions, and become short of breath with more detailed questions. A review of medical records shows that pt was last admitted in 2017 for sedation. However, patient states she was admitted earlier this year at [facility] for asthma exacerbation. 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 Denies: n/v/d, fever, headache, chest pain, or recent sick contact Past History Past Medical History: hypertension, other (Asthma, intubation x5) Past Surgical History: Other (tubal ligation) Social history: Lives alone Family history: hypertension Medications and Allergies Allergies Allergy/AdvReac Type Severity Reaction Status Date / Time No Known Allergies Allergy Verified 02/01/16 07:55 Home Medications Medication Instructions Recorded Confirmed Last Taken Type Albuterol Sulfate [Proair 90 mcg IH Q4HR PRN #2 aer.pow.ba 03/21/17 Unknown Rx Respiclick] Azithromycin [Zithromax TAB] 250 mg PO QDAY #5 tablet 03/21/17 Unknown Rx Fluticasone/Salmeterol [Advair 2 puff IH BID #1 blst.w.dev 03/21/17 Unknown Rx Diskus 500-50 mcg] Ipratropium [Atrovent NEB] 0.5 mg IH Q4HR #120 each 03/21/17 Unknown Rx Montelukast [Singulair] 10 mg PO QPM #30 tablet 03/21/17 Unknown Rx Prednisone [predniSONE 10 mg 10 mg PO .TAPER #1 tab.ds.pk 03/21/17 Unknown Rx (6-Day Pack, 21 Tabs)] raNITIdine HCl [Zantac] 150 mg PO BID #60 tablet 03/21/17 Unknown Rx Active Meds: Active Medications Acetaminophen (Tylenol) 650 mg PO Q4H PRN PRN Reason: Pain MILD(1-3)/Fever >100.5/BOOKER Albuterol (Proventil) 2.5 mg IH Q3HRT PRN PRN Reason: Shortness Of Breath Last Admin: 09/13/19 22:09 Dose: 2.5 mg Documented by: Albuterol/Ipratropium (Duoneb *Not For Prn Use*) 1 ampul IH Q6HRT JOSE D Budesonide (Pulmicort) 0.5 mg IH Q12HRT JOSE D Docusate Sodium (Colace) 100 mg PO BID JOSE D Enoxaparin Sodium (Lovenox) 40 mg SUB-Q QDAY JOSE D Methylprednisolone Sodium Succinate (Solu-Medrol) 80 mg IV Q8HR JOSE D Montelukast Sodium (Singulair) 10 mg PO QPM JOSE D Ondansetron HCl (Zofran) 4 mg IV Q6H PRN PRN Reason: Nausea And Vomiting Oxycodone/Acetaminophen (Percocet 5/325) 1 tab PO Q6H PRN PRN Reason: Pain, Moderate (4-6) Sodium Chloride (Sodium Chloride Flush Syringe 10 Ml) 10 ml IV BID JOSE D Sodium Chloride (Sodium Chloride Flush Syringe 10 Ml) 10 ml IV PRN PRN PRN Reason: LINE FLUSH Review of Systems All systems: negative Respiratory: cough, shortness of breath, dyspnea on exertion, wheezing Exam - Physical Exam Narrative exam: General appearance: Present: Mild distress, alert and orientedx3, well- developed, adult male - EENT Eyes: Present: PERRL, EOM intact ENT: hearing intact, no dentition - Neck Neck: Present: supple, normal ROM - Respiratory Respiratory effort: Labored, on BiPAP Respiratory: bilateral: Scattered wheezes throughout - Cardiovascular Heart rate:124 (bpm) Rhythm:ST Heart Sounds: Present: S1, S2. - Extremities Extremities: no ischemia, pulses intact - Peripheral Assessment Peripheral Pulses: within normal limits - Abdominal General gastrointestinal: soft, non-tender, normal bowel sounds, heme positive - Integumentary Integumentary: Present: warm, dry - Musculoskeletal Musculoskeletal: generalized weakness, able to move all extremities -Neurological Neurological: CN II-XII grossly intact - Psychiatric Psychiatric: cooperative - Constitutional Vitals: Temp Pulse Resp BP Pulse Ox 98.2 F 123 H 18 149/89 100 09/13/19 18:20 09/13/19 21:31 09/13/19 21:31 09/13/19 21:31 09/13/19 21:31 Results - Labs CBC & Chem 7: 09/13/19 18:46 09/13/19 18:46 Labs: Laboratory Last Values WBC 8.6 K/mm3 (4.5-11.0) 09/13/19 18:46 RBC 4.77 M/mm3 (3.65-5.03) 09/13/19 18:46 Hgb 13.1 gm/dl (10.1-14.3) 09/13/19 18:46 Hct 41.2 % (30.3-42.9) 09/13/19 18:46 MCV 86 fl (79-97) 09/13/19 18:46 MCH 28 pg (28-32) 09/13/19 18:46 MCHC 32 % (30-34) 09/13/19 18:46 RDW 13.8 % (13.2-15.2) 09/13/19 18:46 Plt Count 222 K/mm3 (140-440) 09/13/19 18:46 PT 12.8 Sec. (12.2-14.9) 09/13/19 18:46 INR 0.99 (0.87-1.13) 09/13/19 18:46 Sodium 139 mmol/L (137-145) 09/13/19 18:46 Potassium 3.7 mmol/L (3.6-5.0) 09/13/19 18:46 Chloride 102.8 mmol/L (98-107) 09/13/19 18:46 Carbon Dioxide 24 mmol/L (22-30) 09/13/19 18:46 Anion Gap 16 mmol/L 09/13/19 18:46 BUN 7 mg/dL (7-17) 09/13/19 18:46 Creatinine 0.8 mg/dL (0.7-1.2) 09/13/19 18:46 Estimated GFR > 60 ml/min 09/13/19 18:46 BUN/Creatinine Ratio 9 % 09/13/19 18:46 Glucose 118 mg/dL (65-100) H 09/13/19 18:46 Calcium 9.2 mg/dL (8.4-10.2) 09/13/19 18:46 Magnesium 3.20 mg/dL (1.7-2.3) H 09/13/19 18:46 Total Creatine Kinase 74 units/L (30-135) 09/13/19 18:46 - Imaging and Cardiology Imaging and Cardiology: CXR: FINDINGS: SUPPORT DEVICES: None HEART / MEDIASTINUM: No significant abnormality. LUNGS / PLEURA: No significant pulmonary or pleural abnormality. No pn eumothorax. ADDITIONAL FINDINGS: No significant additional findings. IMPRESSION: No significant acute abnormality Assessment and Plan Assessment and plan: 49-year-old -Q[place] female with history of asthma, intubation 5, hypertension who presents to [facility] ED via EMS with progressively worsening shortness of breath/ difficulty in breathing for the past 3 days. Acute exacerbation Asthma -Increased shortness of breath -Scheduled to DuoNebs and Pulmicort, albuterol when necessary -IV systemic steroids -Pulmonary consulted Acute hypoxic respiratory failure -No Baseline home oxygen requirements -Currently on BiPAP -Monitor saturations -ABG pending -Continue supplemental oxygen wean as tolerated HTN -Monitor BP -Resume home antihypertensive meds once medication reconciliation has been u pdated DVT PPX -On Lovenox Advance Directives: No VTE prophylaxis?: Chemical Plan of care discussed with patient/family: Yes <CHAZ SANTACRUZ - Last Filed: 09/13/19 22:38> History of Present Illness Date of admission: 09/13/19 20:49 Medications and Allergies Active Meds: Active Medications Acetaminophen (Tylenol) 650 mg PO Q4H PRN PRN Reason: Pain MILD(1-3)/Fever >100.5/BOOKER Budesonide (Pulmicort) 0.5 mg IH Q12HRT JOSE D Docusate Sodium (Colace) 100 mg PO BID JOSE D Enoxaparin Sodium (Lovenox) 40 mg SUB-Q QDAY JOSE D Ipratropium [place] (Atrovent) 0.5 mg IH Q4HRT JOSE D Levalbuterol HCl (Xopenex) 0.63 mg IH Q4HRT [facility] Methylprednisolone Sodium Succinate (Solu-Medrol) 125 mg IV Q6HR JOSE D Last Admin: 09/13/19 22:29 Dose: 125 mg Documented by: Montelukast Sodium (Singulair) 10 mg PO QPM JOSE D Ondansetron HCl (Zofran) 4 mg IV Q6H PRN PRN Reason: Nausea And Vomiting Sodium Chloride (Sodium Chloride Flush Syringe 10 Ml) 10 ml IV BID JOSE D Sodium Chloride (Sodium Chloride Flush Syringe 10 Ml) 10 ml IV PRN PRN PRN Reason: LINE FLUSH Exam - Constitutional Vitals: Temp Pulse Resp BP Pulse Ox 98.2 F 118 H 20 149/89 100 09/13/19 18:20 09/13/19 22:24 09/13/19 22:24 09/13/19 21:31 09/13/19 22:24 Results - Labs CBC & Chem 7: 09/13/19 18:46 09/13/19 18:46 Labs: Laboratory Last Values WBC 8.6 K/mm3 (4.5-11.0) 09/13/19 18:46 RBC 4.77 M/mm3 (3.65-5.03) 09/13/19 18:46 Hgb 13.1 gm/dl (10.1-14.3) 09/13/19 18:46 Hct 41.2 % (30.3-42.9) 09/13/19 18:46 MCV 86 fl (79-97) 09/13/19 18:46 MCH 28 pg (28-32) 09/13/19 18:46 MCHC 32 % (30-34) 09/13/19 18:46 RDW 13.8 % (13.2-15.2) 09/13/19 18:46 Plt Count 222 K/mm3 (140-440) 09/13/19 18:46 PT 12.8 Sec. (12.2-14.9) 09/13/19 18:46 INR 0.99 (0.87-1.13) 09/13/19 18:46 Sodium 139 mmol/L (137-145) 09/13/19 18:46 Potassium 3.7 mmol/L (3.6-5.0) 09/13/19 18:46 Chloride 102.8 mmol/L (98-107) 09/13/19 18:46 Carbon Dioxide 24 mmol/L (22-30) 09/13/19 18:46 Anion Gap 16 mmol/L 09/13/19 18:46 BUN 7 mg/dL (7-17) 09/13/19 18:46 Creatinine 0.8 mg/dL (0.7-1.2) 09/13/19 18:46 Estimated GFR > 60 ml/min 09/13/19 18:46 BUN/Creatinine Ratio 9 % 09/13/19 18:46 Glucose 118 mg/dL (65-100) H 09/13/19 18:46 Calcium 9.2 mg/dL (8.4-10.2) 09/13/19 18:46 Magnesium 3.20 mg/dL (1.7-2.3) H 09/13/19 18:46 Total Creatine Kinase 74 units/L (30-135) 09/13/19 18:46 Assessment and Plan Assessment and plan: 49-year-old woman with a history of asthma comes emergency room with complaints of shortness of breath and a nonproductive cough for 3 days, not relieved with her nebulizer treatments. She was given nebulizer treatments, epinephrine and placed on BiPAP. Patient has decreased air entry, wheezing, she stated his if she feels she's going down the road for intubation. BiPAP is partially off. Give a dose of steroids now, nebulizer treatment, upgrade to IMCU for close monitoring. Change albuterol to Xopenex given tachycardia.
[2019-09-13] MEDS: SODIUM CHLORIDE FLUSH SYRINGE 10 ML IV SCH (22:37)
[2019-09-13] MEDS ORDERED: MAGNESIUM SULFATE 2GM/50ML 2 GM/50 ML BAG IV ONE ×2 (23:27→23:33)
[2019-09-13] MEDS: COLACE PO SCH (23:36)
[2019-09-14] MEDS: SOLU-Medrol IV SCH ×5 (00:42→22:48)
[2019-09-14] MEDS ORDERED: DUONEB *Not for PRN Use IH SCH (02:00)
[2019-09-14] MEDS ORDERED: XOPENEX IH ONE ×4 (02:15→17:30)
[2019-09-14] MEDS ORDERED: ATROVENT IH ONE ×4 (02:15→17:30)
[2019-09-14] MEDS: XOPENEX IH SCH ×6 (02:16→23:17)
[2019-09-14] MEDS: ATROVENT IH SCH ×7 (02:16→23:17)
[2019-09-14 05:00] LABS: Hematocrit 38.6 % (30.3-42.9); Hemoglobin 12.3 gm/dl (10.1-14.3); Mean Corpuscular HGB Conc 32 % (30-34); Mean Corpuscular Volume 86 fl (79-97); Platelet Count 223 K/mm3 (140-440); Red Cell Distribution Width 13.6 % (13.2-15.2)
[2019-09-14 05:16] LABS: BUN/Creatinine Ratio 9; Blood Urea Nitrogen 7 mg/dL (7-17); Hemolysis Index 4
[2019-09-14 06:22] LABS: Basophils % (Manual) 0 % (0.0-1.8); Eosinophils % (Manual) 0 % (0.0-4.3); Monocytes % (Manual) 0 % (0.0-7.3); Platelet Estimate Consistent w Auto; Total Cells Counted 100
[2019-09-14] MEDS ORDERED: SOLU-Medrol ONE ×2 (06:48→12:50)
[2019-09-14] MEDS ORDERED: PULMICORT IH ONE (08:39)
[2019-09-14] MEDS: PULMICORT IH SCH ×2 (08:39→20:00)
[2019-09-14] MEDS ORDERED: ENOXAPARIN SUB-Q ONE (10:35)
[2019-09-14] MEDS ORDERED: COLACE ONE (10:36)
[2019-09-14] MEDS: SODIUM CHLORIDE FLUSH SYRINGE 10 ML IV SCH ×2 (10:38→22:49)
[2019-09-14] MEDS: ENOXAPARIN SUB-Q SCH (10:38)
[2019-09-14] MEDS: COLACE PO SCH ×2 (10:38→22:48)
--- NOTE | 2019-09-14 12:03 | Progress Note ---
Assessment and Plan Assessment and plan: 49-year-old -Y[place]i female with history of asthma, intubation 5, hypertension who presents to [facility] ED via EMS with progressively worsening shortness of breath/ difficulty in breathing for the past 3 days. --Acute exacerbation of Asthma; DuoNebs and Pulmicort, albuterol when necessary Tapering doses of IV systemic steroids Pulmonary consult --Acute hypoxic respiratory failure Due to acute exacerbation of bronchial asthma Requiring BiPAP, gradually wean off BiPAP and maintain O2 sats more than 90% Nasal cannula oxygen, nebulizers, IV steroids, IV antibiotics, inhalation steroids Pulmonary consult as needed Patient for home oxygen at discharge --HTN; moderate control Continue current antihypertensives and when necessary medications --DVT PPX; on Lovenox Monitor clinically and adjust management as needed Plan of care reviewed with the patient and her nurse We'll downgrade the patient to medical floor if stable History Interval history: Patient seen and examined medical records reviewed Patient was admitted with acute on chronic respiratory failure secondary to asthma exacerbation Requiring BiPAP At the time of my evaluation patient is feeling better on nasal cannula oxygen saturating 97-98% Alert awake oriented, Vital signs reviewed Hospitalist Physical - Constitutional Vitals: Temp Pulse Resp BP Pulse Ox 98.2 F 95 H 18 148/62 100 09/13/19 18:20 09/14/19 10:29 09/14/19 10:29 09/14/19 10:29 09/14/19 10:29 General appearance: Present: mild distress, well-nourished, obese - EENT Eyes: Present: PERRL, EOM intact - Neck Neck: Present: supple, normal ROM - Respiratory Respiratory effort: normal Respiratory: bilateral: diminished, rales, wheezing, negative: rhonchi - Cardiovascular Rhythm: regular Heart Sounds: Present: S1 & S2 - Extremities Extremities: no ischemia, pulses intact - Abdominal General gastrointestinal: soft, non-tender, non-distended, normal bowel sounds - Integumentary Integumentary: Present: clear, warm - Psychiatric Psychiatric: appropriate mood/affect, cooperative - Neurologic Neurologic: CNII-XII intact, moves all extremities Results - Labs CBC & Chem 7: 09/14/19 04:31 09/14/19 04:31 Labs: Laboratory Last Values WBC 12.2 K/mm3 (4.5-11.0) H 09/14/19 04:31 RBC 4.50 M/mm3 (3.65-5.03) 09/14/19 04:31 Hgb 12.3 gm/dl (10.1-14.3) 09/14/19 04:31 Hct 38.6 % (30.3-42.9) 09/14/19 04:31 MCV 86 fl (79-97) 09/14/19 04:31 MCH 27 pg (28-32) L 09/14/19 04:31 MCHC 32 % (30-34) 09/14/19 04:31 RDW 13.6 % (13.2-15.2) 09/14/19 04:31 Plt Count 223 K/mm3 (140-440) 09/14/19 04:31 Add Manual Diff Complete 09/14/19 04:31 Total Counted 100 09/14/19 04:31 Seg Neutrophils % Dinkey Mechanic 09/14/19 04:31 Seg Neuts % (Manual) 97.0 % (40.0-70.0) H 09/14/19 04:31 Band Neutrophils % 0 % 09/14/19 04:31 Lymphocytes % (Manual) 3.0 % (13.4-35.0) L 09/14/19 04:31 Reactive Lymphs % (Man) 0 % 09/14/19 04:31 Monocytes % (Manual) 0 % (0.0-7.3) 09/14/19 04:31 Eosinophils % (Manual) 0 % (0.0-4.3) 09/14/19 04:31 Basophils % (Manual) 0 % (0.0-1.8) 09/14/19 04:31 Metamyelocytes % 0 % 09/14/19 04:31 Myelocytes % 0 % 09/14/19 04:31 Promyelocytes % 0 % 09/14/19 04:31 Blast Cells % 0 % 09/14/19 04:31 Nucleated RBC % Not Reportable 09/14/19 04:31 Seg Neutrophils # Man 11.8 K/mm3 (1.8-7.7) H 09/14/19 04:31 Band Neutrophils # 0.0 K/mm3 09/14/19 04:31 Lymphocytes # (Manual) 0.4 K/mm3 (1.2-5.4) L 09/14/19 04:31 Abs React Lymphs (Man) 0.0 K/mm3 09/14/19 04:31 Monocytes # (Manual) 0.0 K/mm3 (0.0-0.8) 09/14/19 04:31 Eosinophils # (Manual) 0.0 K/mm3 (0.0-0.4) 09/14/19 04:31 Basophils # (Manual) 0.0 K/mm3 (0.0-0.1) 09/14/19 04:31 Metamyelocytes # 0.0 K/mm3 09/14/19 04:31 Myelocytes # 0.0 K/mm3 09/14/19 04:31 Promyelocytes # 0.0 K/mm3 09/14/19 04:31 Blast Cells # 0.0 K/mm3 09/14/19 04:31 WBC Morphology Not Reportable 09/14/19 04:31 Hypersegmented Neuts Not Reportable 09/14/19 04:31 Hyposegmented Neuts Not Reportable 09/14/19 04:31 Hypogranular Neuts Not Reportable 09/14/19 04:31 Smudge Cells Not Reportable 09/14/19 04:31 Toxic Granulation Not Reportable 09/14/19 04:31 Toxic Vacuolation Not Reportable 09/14/19 04:31 Dohle Bodies Not Reportable 09/14/19 04:31 Pelger-Huet Anomaly Not Reportable 09/14/19 04:31 Elvin Rods Not Reportable 09/14/19 04:31 Platelet Estimate Consistent w auto 09/14/19 04:31 Clumped Platelets Not Reportable 09/14/19 04:31 Plt Clumps, EDTA Not Reportable 09/14/19 04:31 Large Platelets Not Reportable 09/14/19 04:31 Giant Platelets Not Reportable 09/14/19 04:31 Platelet Satelliting Not Reportable 09/14/19 04:31 Plt Morphology Comment Not Reportable 09/14/19 04:31 RBC Morphology Not Reportable 09/14/19 04:31 Dimorphic RBCs Not Reportable 09/14/19 04:31 Polychromasia Not Reportable 09/14/19 04:31 Hypochromasia Not Reportable 09/14/19 04:31 Poikilocytosis Not Reportable 09/14/19 04:31 Anisocytosis Not Reportable 09/14/19 04:31 Microcytosis Not Reportable 09/14/19 04:31 Macrocytosis Not Reportable 09/14/19 04:31 Spherocytes Not Reportable 09/14/19 04:31 Pappenheimer Bodies Not Reportable 09/14/19 04:31 Sickle Cells Not Reportable 09/14/19 04:31 Target Cells Not Reportable 09/14/19 04:31 Tear Drop Cells Not Reportable 09/14/19 04:31 Ovalocytes Not Reportable 09/14/19 04:31 Helmet Cells Not Reportable 09/14/19 04:31 [place] Bodies Not Reportable 09/14/19 04:31 [place] Rings Not Reportable 09/14/19 04:31 [place] Cells Not Reportable 09/14/19 04:31 Bite Cells Not Reportable 09/14/19 04:31 Crenated Cell Not Reportable 09/14/19 04:31 Elliptocytes Not Reportable 09/14/19 04:31 Acanthocytes (Spur) Not Reportable 09/14/19 04:31 Rouleaux Not Reportable 09/14/19 04:31 Hemoglobin C Crystals Not Reportable 09/14/19 04:31 Schistocytes Not Reportable 09/14/19 04:31 Malaria parasites Not Reportable 09/14/19 04:31 Sean Bodies Not Reportable 09/14/19 04:31 Hem Pathologist Commnt No 09/14/19 04:31 PT 12.8 Sec. (12.2-14.9) 09/13/19 18:46 INR 0.99 (0.87-1.13) 09/13/19 18:46 POC ABG pH 7.371 (7.35-7.45) 09/13/19 22:19 POC ABG pCO2 40.9 (35-45) 09/13/19 22:19 POC ABG pO2 348 (80-105) H 09/13/19 22:19 POC ABG HCO3 23.7 (22-26 mml/L) 09/13/19 22:19 POC ABG Total CO2 25 (23-27mmol/L) 09/13/19 22:19 POC ABG O2 Sat 100 09/13/19 22:19 POC ABG Base Excess -2 ((-2) - (+3)mmol/L) 09/13/19 22:19 FiO2 40 % 09/13/19 22:19 Sodium 139 mmol/L (137-145) 09/14/19 04:31 Potassium 5.0 mmol/L (3.6-5.0) D 09/14/19 04:31 Chloride 103.9 mmol/L (98-107) 09/14/19 04:31 Carbon Dioxide 23 mmol/L (22-30) 09/14/19 04:31 Anion Gap 17 mmol/L 09/14/19 04:31 BUN 7 mg/dL (7-17) 09/14/19 04:31 Creatinine 0.8 mg/dL (0.7-1.2) 09/14/19 04:31 Estimated GFR > 60 ml/min 09/14/19 04:31 BUN/Creatinine Ratio 9 % 09/14/19 04:31 Glucose 230 mg/dL (65-100) H 09/14/19 04:31 Calcium 9.0 mg/dL (8.4-10.2) 09/14/19 04:31 Magnesium 3.20 mg/dL (1.7-2.3) H 09/13/19 18:46 Total Creatine Kinase 74 units/L (30-135) 09/13/19 18:46 Active Medications - Current Medications Current Medications: Generic Name Dose Route Start Last Admin Trade Name Freq PRN Reason Stop Dose Admin Acetaminophen 650 mg 09/13/19 20:46 Tylenol PO Q4H PRN Pain MILD(1-3)/Fever >100.5/BOOKER Budesonide 0.5 mg 09/14/19 08:00 09/14/19 08:39 Pulmicort IH 0.5 mg Q12HRT JOSE D Administration Docusate Sodium 100 mg 09/13/19 22:00 09/14/19 10:38 Colace PO 100 mg BID JOSE D Administration Enoxaparin Sodium 40 mg 09/14/19 10:00 09/14/19 10:38 Lovenox SUB-Q 40 mg QDAY JOSE D Administration Ipratropium [place] 0.5 mg 09/14/19 00:00 09/14/19 08:40 Atrovent IH 0.5 mg Q4HRT JOSE D Administration Levalbuterol HCl 0.63 mg 09/14/19 00:00 09/14/19 08:39 Xopenex IH 0.63 mg Q4HRT JOSE D Administration Methylprednisolone Sodium Succinate 125 mg 09/14/19 00:00 09/14/19 06:45 Solu-Medrol IV 125 mg Q6HR JOSE D Administration Montelukast Sodium 10 mg 09/14/19 18:00 Singulair PO QPM JOSE D Ondansetron HCl 4 mg 09/13/19 20:46 Zofran IV Q6H PRN Nausea And Vomiting Sodium Chloride 10 ml 09/13/19 22:00 09/14/19 10:38 Sodium Chloride Flush Syringe 10 Ml IV 10 ml BID JOSE D Administration Sodium Chloride 10 ml 09/13/19 20:46 Sodium Chloride Flush Syringe 10 Ml IV PRN PRN LINE FLUSH
[2019-09-14] MEDS: SINGULAIR PO SCH (22:48)
[2019-09-15] MEDS: XOPENEX IH SCH ×5 (03:38→20:27)
[2019-09-15] MEDS: ATROVENT IH SCH ×5 (03:39→20:26)
[2019-09-15] MEDS: SOLU-Medrol IV SCH ×2 (06:17→14:50)
[2019-09-15] MEDS: PULMICORT IH SCH ×2 (07:57→20:27)
[2019-09-15] MEDS: COLACE PO SCH ×2 (10:45→21:58)
[2019-09-15] MEDS: ENOXAPARIN SUB-Q SCH (10:45)
[2019-09-15] MEDS ORDERED: AFLURIA QUAD 2019-2020 (3YR UP) IM ONE (12:00)
--- NOTE | 2019-09-15 12:56 | Consultation ---
History of Present Illness Consult date: 09/15/19 Requesting physician: CORINE RAO Reason for consult: asthma History of present illness: 49 y/o obese female admitted with asthma exacerbation. Well known to our group. Has been doing well for the last few years. Moved but now is back on this side of town. Thinks the weather is what tipped her over. Past History Past Medical History: hypertension, other (Asthma, intubation x5) Past Surgical History: Other (tubal ligation) Social history: Lives alone Family history: hypertension Medications and Allergies Allergies Allergy/AdvReac Type Severity Reaction Status Date / Time wheat Allergy Unknown Verified 09/15/19 10:43 Home Medications Medication Instructions Recorded Confirmed Last Taken Type Montelukast [Singulair] 10 mg PO QPM #30 tablet 03/21/17 09/14/19 09/13/19 Rx raNITIdine HCl [Zantac] 150 mg PO BID #60 tablet 03/21/17 09/14/19 09/13/19 Rx ALBUTEROL Inhaler (OR & NICU) 2 puff IH Q4H PRN 09/14/19 09/14/19 Unknown History [Proair] ALBUTEROL NEB's [Proventil] 2.5 mg IH QID 09/14/19 09/14/19 Unknown History Fluticasone/Vilanterol [Breo 1 each IH QDAY 09/14/19 09/14/19 Unknown History Ellipta 200-25 Mcg INH] Ipratropium [Atrovent NEB] 0.5 mg IH TID 09/14/19 09/14/19 Unknown History Mepolizumab [Nucala] 100 mg SUB-Q Q4W 09/14/19 09/14/19 09/07/19 History predniSONE [Deltasone] 10 mg PO QDAY 09/14/19 09/14/19 09/13/19 History Active Meds: Active Medications Acetaminophen (Tylenol) 650 mg PO Q4H PRN PRN Reason: Pain MILD(1-3)/Fever >100.5/BOOKER Budesonide (Pulmicort) 0.5 mg IH Q12HRT [facility] Last Admin: 09/15/19 07:57 Dose: 0.5 mg Documented by: Docusate Sodium (Colace) 100 mg PO BID [facility] Last Admin: 09/15/19 10:45 Dose: 100 mg Documented by: Enoxaparin Sodium (Lovenox) 40 mg SUB-Q QDAY [facility] Last Admin: 09/15/19 10:45 Dose: 40 mg Documented by: Ipratropium [place] (Atrovent) 0.5 mg IH Q4HRT [facility] Last Admin: 09/15/19 11:52 Dose: 0.5 mg Documented by: Levalbuterol HCl (Xopenex) 0.63 mg IH Q4HRT [facility] Last Admin: 09/15/19 11:52 Dose: 0.63 mg Documented by: Methylprednisolone Sodium Succinate (Solu-Medrol) 80 mg IV Q8H [facility] Last Admin: 09/15/19 06:17 Dose: 80 mg Documented by: Montelukast Sodium (Singulair) 10 mg PO QPM [facility] Last Admin: 09/14/19 22:48 Dose: 10 mg Documented by: Ondansetron HCl (Zofran) 4 mg IV Q6H PRN PRN Reason: Nausea And Vomiting Sodium Chloride (Sodium Chloride Flush Syringe 10 Ml) 10 ml IV BID [facility] Last Admin: 09/14/19 22:49 Dose: 10 ml Documented by: Sodium Chloride (Sodium Chloride Flush Syringe 10 Ml) 10 ml IV PRN PRN PRN Reason: LINE FLUSH Review of Systems All systems: negative Physical Examination Vital signs: Vital Signs Temp Pulse Resp BP Pulse Ox 98.2 F 118 H 22 140/60 100 09/13/19 18:20 09/13/19 18:20 09/13/19 18:20 09/13/19 18:20 09/13/19 18:20 General appearance: no acute distress, alert Eyes: non-icteric ENT: oropharynx moist Neck: supple Ascultation: Bilateral: wheezes Results - Laboratory Findings CBC and BMP: 09/14/19 04:31 09/14/19 04:31 ABG POC ABG pH 7.371 (7.35-7.45) 09/13/19 22:19 POC ABG pCO2 40.9 (35-45) 09/13/19 22:19 POC ABG pO2 348 (80-105) H 09/13/19 22:19 POC ABG HCO3 23.7 (22-26 mml/L) 09/13/19 22:19 POC ABG Total CO2 25 (23-27mmol/L) 09/13/19 22:19 POC ABG O2 Sat 100 09/13/19 22:19 PT/INR, D-dimer PT 12.8 Sec. (12.2-14.9) 09/13/19 18:46 INR 0.99 (0.87-1.13) 09/13/19 18:46 Abnormal lab findings: Abnormal Labs 09/13/19 09/13/19 09/14/19 18:46 22:19 04:31 WBC 12.2 H MCH 27 L Seg Neuts % (Manual) 97.0 H Lymphocytes % (Manual) 3.0 L Seg Neutrophils # Man 11.8 H Lymphocytes # (Manual) 0.4 L POC ABG pO2 348 H Glucose 118 H Magnesium 3.20 H 09/14/19 04:31 WBC MCH Seg Neuts % (Manual) Lymphocytes % (Manual) Seg Neutrophils # Man Lymphocytes # (Manual) POC ABG pO2 Glucose 230 H Magnesium - Diagnostic Findings Chest x-ray: image reviewed (clear CXR) Assessment and Plan 49 y/o with acute respiratory failure secondary to asthma exacerbation 1. Agree with current dosing of IV steroids. patient has improved significantly and should be changed to Prednisone 60 daily for prolong taper over 2 week time period 2. Continue scheduled nebs 3. Hopeful discharge in the next 24-36 hours.
[2019-09-15] MEDS: SODIUM CHLORIDE FLUSH SYRINGE 10 ML IV SCH ×2 (14:00→21:58)
--- NOTE | 2019-09-15 16:35 | Progress Note ---
Assessment and Plan Assessment and plan: 49-year-old -[place] female with history of asthma, intubation 5, hypertension was admitted through ED with worsening shortness of breath and acute hypoxic respiratory failure --Acute hypoxic respiratory failure Due to acute exacerbation of bronchial asthma Requiring BiPAP, transitioned to nasal cannula oxygen Titrate to O2 sats more than 90%, nebulizers tapering IV steroids IV antibiotics, inhalation steroids, supportive care Pulmonary consult noted and appreciated Evaluation for home oxygen at discharge --Acute exacerbation of Asthma; DuoNebs and Pulmicort, albuterol when necessary Tapering doses of IV systemic steroids, supportive care --HTN; moderate control Continue current antihypertensives and when necessary medications --DVT PPX; on Lovenox Monitor clinically and adjust management as needed Plan of care reviewed with the patient and her nurse Possible discharge tomorrow on oral antibiotics and tapering dose of oral steroids History Interval history: Patient seen and examined medical records reviewed Patient feels slightly better still complains of shortness of breath and wheezing Alert awake oriented 3 Mild distress Vital signs reviewed Hospitalist Physical - Constitutional Vitals: Temp Pulse Resp BP Pulse Ox 98.5 F 83 16 130/72 97 09/15/19 11:26 09/15/19 11:52 09/15/19 11:52 09/15/19 11:26 09/15/19 11:26 General appearance: Present: mild distress, well-nourished, obese - EENT Eyes: Present: PERRL, EOM intact - Neck Neck: Present: supple, normal ROM - Respiratory Respiratory effort: normal Respiratory: bilateral: diminished, wheezing, negative: rales, rhonchi - Cardiovascular Rhythm: regular Heart Sounds: Present: S1 & S2 - Extremities Extremities: no ischemia, No edema - Abdominal General gastrointestinal: soft, non-tender, non-distended, normal bowel sounds - Integumentary Integumentary: Present: clear, warm - Psychiatric Psychiatric: appropriate mood/affect, cooperative - Neurologic Neurologic: moves all extremities Results - Labs CBC & Chem 7: 09/14/19 04:31 09/14/19 04:31 Labs: Laboratory Last Values WBC 12.2 K/mm3 (4.5-11.0) H 09/14/19 04:31 RBC 4.50 M/mm3 (3.65-5.03) 09/14/19 04:31 Hgb 12.3 gm/dl (10.1-14.3) 09/14/19 04:31 Hct 38.6 % (30.3-42.9) 09/14/19 04:31 MCV 86 fl (79-97) 09/14/19 04:31 MCH 27 pg (28-32) L 09/14/19 04:31 MCHC 32 % (30-34) 09/14/19 04:31 RDW 13.6 % (13.2-15.2) 09/14/19 04:31 Plt Count 223 K/mm3 (140-440) 09/14/19 04:31 Add Manual Diff Complete 09/14/19 04:31 Total Counted 100 09/14/19 04:31 Seg Neutrophils % [employer] Cellar Hand 09/14/19 04:31 Seg Neuts % (Manual) 97.0 % (40.0-70.0) H 09/14/19 04:31 Band Neutrophils % 0 % 09/14/19 04:31 Lymphocytes % (Manual) 3.0 % (13.4-35.0) L 09/14/19 04:31 Reactive Lymphs % (Man) 0 % 09/14/19 04:31 Monocytes % (Manual) 0 % (0.0-7.3) 09/14/19 04:31 Eosinophils % (Manual) 0 % (0.0-4.3) 09/14/19 04:31 Basophils % (Manual) 0 % (0.0-1.8) 09/14/19 04:31 Metamyelocytes % 0 % 09/14/19 04:31 Myelocytes % 0 % 09/14/19 04:31 Promyelocytes % 0 % 09/14/19 04:31 Blast Cells % 0 % 09/14/19 04:31 Nucleated RBC % Not Reportable 09/14/19 04:31 Seg Neutrophils # Man 11.8 K/mm3 (1.8-7.7) H 09/14/19 04:31 Band Neutrophils # 0.0 K/mm3 09/14/19 04:31 Lymphocytes # (Manual) 0.4 K/mm3 (1.2-5.4) L 09/14/19 04:31 Abs React Lymphs (Man) 0.0 K/mm3 09/14/19 04:31 Monocytes # (Manual) 0.0 K/mm3 (0.0-0.8) 09/14/19 04:31 Eosinophils # (Manual) 0.0 K/mm3 (0.0-0.4) 09/14/19 04:31 Basophils # (Manual) 0.0 K/mm3 (0.0-0.1) 09/14/19 04:31 Metamyelocytes # 0.0 K/mm3 09/14/19 04:31 Myelocytes # 0.0 K/mm3 09/14/19 04:31 Promyelocytes # 0.0 K/mm3 09/14/19 04:31 Blast Cells # 0.0 K/mm3 09/14/19 04:31 WBC Morphology Not Reportable 09/14/19 04:31 Hypersegmented Neuts Not Reportable 09/14/19 04:31 Hyposegmented Neuts Not Reportable 09/14/19 04:31 Hypogranular Neuts Not Reportable 09/14/19 04:31 Smudge Cells Not Reportable 09/14/19 04:31 Toxic Granulation Not Reportable 09/14/19 04:31 Toxic Vacuolation Not Reportable 09/14/19 04:31 Dohle Bodies Not Reportable 09/14/19 04:31 Pelger-Huet Anomaly Not Reportable 09/14/19 04:31 Elvin Rods Not Reportable 09/14/19 04:31 Platelet Estimate Consistent w auto 09/14/19 04:31 Clumped Platelets Not Reportable 09/14/19 04:31 Plt Clumps, EDTA Not Reportable 09/14/19 04:31 Large Platelets Not Reportable 09/14/19 04:31 Giant Platelets Not Reportable 09/14/19 04:31 Platelet Satelliting Not Reportable 09/14/19 04:31 Plt Morphology Comment Not Reportable 09/14/19 04:31 RBC Morphology Not Reportable 09/14/19 04:31 Dimorphic RBCs Not Reportable 09/14/19 04:31 Polychromasia Not Reportable 09/14/19 04:31 Hypochromasia Not Reportable 09/14/19 04:31 Poikilocytosis Not Reportable 09/14/19 04:31 Anisocytosis Not Reportable 09/14/19 04:31 Microcytosis Not Reportable 09/14/19 04:31 Macrocytosis Not Reportable 09/14/19 04:31 Spherocytes Not Reportable 09/14/19 04:31 Pappenheimer Bodies Not Reportable 09/14/19 04:31 Sickle Cells Not Reportable 09/14/19 04:31 Target Cells Not Reportable 09/14/19 04:31 Tear Drop Cells Not Reportable 09/14/19 04:31 Ovalocytes Not Reportable 09/14/19 04:31 Helmet Cells Not Reportable 09/14/19 04:31 [place] Bodies Not Reportable 09/14/19 04:31 [place] Rings Not Reportable 09/14/19 04:31 [place] Cells Not Reportable 09/14/19 04:31 Bite Cells Not Reportable 09/14/19 04:31 Crenated Cell Not Reportable 09/14/19 04:31 Elliptocytes Not Reportable 09/14/19 04:31 Acanthocytes (Spur) Not Reportable 09/14/19 04:31 Rouleaux Not Reportable 09/14/19 04:31 Hemoglobin C Crystals Not Reportable 09/14/19 04:31 Schistocytes Not Reportable 09/14/19 04:31 Malaria parasites Not Reportable 09/14/19 04:31 Sean Bodies Not Reportable 09/14/19 04:31 Hem Pathologist Commnt No 09/14/19 04:31 PT 12.8 Sec. (12.2-14.9) 09/13/19 18:46 INR 0.99 (0.87-1.13) 09/13/19 18:46 POC ABG pH 7.371 (7.35-7.45) 09/13/19 22:19 POC ABG pCO2 40.9 (35-45) 09/13/19 22:19 POC ABG pO2 348 (80-105) H 09/13/19 22:19 POC ABG HCO3 23.7 (22-26 mml/L) 09/13/19 22:19 POC ABG Total CO2 25 (23-27mmol/L) 09/13/19 22:19 POC ABG O2 Sat 100 09/13/19 22:19 POC ABG Base Excess -2 ((-2) - (+3)mmol/L) 09/13/19 22:19 FiO2 40 % 09/13/19 22:19 Sodium 139 mmol/L (137-145) 09/14/19 04:31 Potassium 5.0 mmol/L (3.6-5.0) D 09/14/19 04:31 Chloride 103.9 mmol/L (98-107) 09/14/19 04:31 Carbon Dioxide 23 mmol/L (22-30) 09/14/19 04:31 Anion Gap 17 mmol/L 09/14/19 04:31 BUN 7 mg/dL (7-17) 09/14/19 04:31 Creatinine 0.8 mg/dL (0.7-1.2) 09/14/19 04:31 Estimated GFR > 60 ml/min 09/14/19 04:31 BUN/Creatinine Ratio 9 % 09/14/19 04:31 Glucose 230 mg/dL (65-100) H 09/14/19 04:31 Calcium 9.0 mg/dL (8.4-10.2) 09/14/19 04:31 Magnesium 3.20 mg/dL (1.7-2.3) H 09/13/19 18:46 Total Creatine Kinase 74 units/L (30-135) 09/13/19 18:46 Active Medications - Current Medications Current Medications: Generic Name Dose Route Start Last Admin Trade Name Freq PRN Reason Stop Dose Admin Acetaminophen 650 mg 09/13/19 20:46 Tylenol PO Q4H PRN Pain MILD(1-3)/Fever >100.5/BOOKER Budesonide 0.5 mg 09/14/19 08:00 09/15/19 07:57 Pulmicort IH 0.5 mg Q12HRT JOSE D Administration Docusate Sodium 100 mg 09/13/19 22:00 09/15/19 10:45 Colace PO 100 mg BID JOSE D Administration Enoxaparin Sodium 40 mg 09/14/19 10:00 09/15/19 10:45 Lovenox SUB-Q 40 mg QDAY JOSE D Administration Ipratropium [place] 0.5 mg 09/14/19 00:00 09/15/19 11:52 Atrovent IH 0.5 mg Q4HRT JOSE D Administration Levalbuterol HCl 0.63 mg 09/14/19 00:00 09/15/19 11:52 Xopenex IH 0.63 mg Q4HRT JOSE D Administration Methylprednisolone Sodium Succinate 80 mg 09/14/19 14:00 09/15/19 14:50 Solu-Medrol IV 80 mg Q8H JOSE D Administration Montelukast Sodium 10 mg 09/14/19 18:00 09/14/19 22:48 Singulair PO 10 mg QPM JOSE D Administration Ondansetron HCl 4 mg 09/13/19 20:46 Zofran IV Q6H PRN Nausea And Vomiting Sodium Chloride 10 ml 09/13/19 22:00 09/14/19 22:49 Sodium Chloride Flush Syringe 10 Ml IV 10 ml BID JOSE D Administration Sodium Chloride 10 ml 09/13/19 20:46 Sodium Chloride Flush Syringe 10 Ml IV PRN PRN LINE FLUSH
[2019-09-15] MEDS: SINGULAIR PO SCH (19:27)
[2019-09-15] MEDS ORDERED: XOPENEX IH PRN (23:27)
[2019-09-16] MEDS ORDERED: SOLU-Medrol IV SCH (02:00)
[2019-09-16] MEDS: ATROVENT IH SCH ×3 (07:37→20:10)
[2019-09-16] MEDS: PULMICORT IH SCH ×2 (07:37→20:10)
[2019-09-16] MEDS: XOPENEX IH SCH ×3 (07:37→20:10)
[2019-09-16] MEDS: DELTASONE PO SCH (10:00)
[2019-09-16] MEDS: COLACE PO SCH ×2 (10:01→21:34)
[2019-09-16] MEDS: SODIUM CHLORIDE FLUSH SYRINGE 10 ML IV SCH ×2 (10:01→21:35)
[2019-09-16] MEDS: ENOXAPARIN SUB-Q SCH (10:01)
--- NOTE | 2019-09-16 12:55 | Progress Note ---
Assessment and Plan 49 y/o with acute respiratory failure secondary to asthma exacerbation 1. Patient requests one more day of IV stay. Will defer to primary team. Stable pulm hoff. Can follow up in the office in 10-14 days. 2. Steroid taper as mentioned previously. Subjective Date of service: 09/16/19 Interval history: No acute events. Stable. Now on room air. Objective Vital Signs - 12hr 09/16/19 09/16/19 09/16/19 05:36 07:37 07:38 Temperature 98.6 F Pulse Rate 72 Pulse Rate [ 83 Bilateral] Respiratory 21 Rate Respiratory 17 Rate [Bilateral ] Blood Pressure 118/57 O2 Sat by Pulse 98 99 Oximetry CBC and BMP: 09/14/19 04:31 09/14/19 04:31 ABG, PT/INR, D-dimer: ABG POC ABG pH 7.371 (7.35-7.45) 09/13/19 22:19 POC ABG pCO2 40.9 (35-45) 09/13/19 22:19 POC ABG pO2 348 (80-105) H 09/13/19 22:19 POC ABG HCO3 23.7 (22-26 mml/L) 09/13/19 22:19 POC ABG Total CO2 25 (23-27mmol/L) 09/13/19 22:19 POC ABG O2 Sat 100 09/13/19 22:19 PT/INR, D-dimer PT 12.8 Sec. (12.2-14.9) 09/13/19 18:46 INR 0.99 (0.87-1.13) 09/13/19 18:46 Abnormal lab findings: Abnormal Labs 09/13/19 09/13/19 09/14/19 18:46 22:19 04:31 WBC 12.2 H MCH 27 L Seg Neuts % (Manual) 97.0 H Lymphocytes % (Manual) 3.0 L Seg Neutrophils # Man 11.8 H Lymphocytes # (Manual) 0.4 L POC ABG pO2 348 H Glucose 118 H Magnesium 3.20 H 09/14/19 04:31 WBC MCH Seg Neuts % (Manual) Lymphocytes % (Manual) Seg Neutrophils # Man Lymphocytes # (Manual) POC ABG pO2 Glucose 230 H Magnesium
[2019-09-16] MEDS: SINGULAIR PO SCH (17:19)
--- NOTE | 2019-09-16 18:22 | Progress Note ---
Assessment and Plan Assessment and plan: 49-year-old -[place]oz[place] female with history of asthma, intubation 5, hypertension was admitted through ED with worsening shortness of breath and acute hypoxic respiratory failure --Acute hypoxic respiratory failure Due to acute exacerbation of bronchial asthma Requiring BiPAP, transitioned to nasal cannula oxygen Titrate to O2 sats more than 90%, nebulizers tapering IV steroids IV antibiotics, inhalation steroids, supportive care Pulmonary consult noted and appreciated Evaluation for home oxygen at discharge --Acute exacerbation of Asthma; DuoNebs and Pulmicort, albuterol when necessary Tapering doses of IV systemic steroids, supportive care --HTN; moderate control Continue current antihypertensives and when necessary medications --DVT PPX; on Lovenox Monitor clinically and adjust management as needed Plan of care reviewed with the patient and her nurse Possible discharge tomorrow on oral antibiotics and tapering dose of oral steroids History Interval history: Patient seen and examined medical records reviewed No new events reported by nursing Patient continues to have shortness of breath In mild distress ,Vital Signs noted Hospitalist Physical - Constitutional Vitals: Temp Pulse Resp BP Pulse Ox 98.9 F 79 18 139/68 97 09/16/19 11:47 09/16/19 13:27 09/16/19 13:27 09/16/19 11:47 09/16/19 11:47 General appearance: Present: mild distress, well-nourished, obese - EENT Eyes: Present: PERRL, EOM intact - Neck Neck: Present: supple, normal ROM - Respiratory Respiratory effort: normal Respiratory: bilateral: diminished, wheezing, negative: rales, rhonchi - Cardiovascular Rhythm: regular Heart Sounds: Present: S1 & S2 - Extremities Extremities: no ischemia, No edema - Abdominal General gastrointestinal: soft, non-tender, non-distended, normal bowel sounds - Integumentary Integumentary: Present: clear, warm - Psychiatric Psychiatric: appropriate mood/affect, cooperative - Neurologic Neurologic: CNII-XII intact, moves all extremities Results - Labs CBC & Chem 7: 09/14/19 04:31 09/14/19 04:31 Labs: Laboratory Last Values WBC 12.2 K/mm3 (4.5-11.0) H 09/14/19 04:31 RBC 4.50 M/mm3 (3.65-5.03) 09/14/19 04:31 Hgb 12.3 gm/dl (10.1-14.3) 09/14/19 04:31 Hct 38.6 % (30.3-42.9) 09/14/19 04:31 MCV 86 fl (79-97) 09/14/19 04:31 MCH 27 pg (28-32) L 09/14/19 04:31 MCHC 32 % (30-34) 09/14/19 04:31 RDW 13.6 % (13.2-15.2) 09/14/19 04:31 Plt Count 223 K/mm3 (140-440) 09/14/19 04:31 Add Manual Diff Complete 09/14/19 04:31 Total Counted 100 09/14/19 04:31 Seg Neutrophils % [employer] 09/14/19 04:31 Seg Neuts % (Manual) 97.0 % (40.0-70.0) H 09/14/19 04:31 Band Neutrophils % 0 % 09/14/19 04:31 Lymphocytes % (Manual) 3.0 % (13.4-35.0) L 09/14/19 04:31 Reactive Lymphs % (Man) 0 % 09/14/19 04:31 Monocytes % (Manual) 0 % (0.0-7.3) 09/14/19 04:31 Eosinophils % (Manual) 0 % (0.0-4.3) 09/14/19 04:31 Basophils % (Manual) 0 % (0.0-1.8) 09/14/19 04:31 Metamyelocytes % 0 % 09/14/19 04:31 Myelocytes % 0 % 09/14/19 04:31 Promyelocytes % 0 % 09/14/19 04:31 Blast Cells % 0 % 09/14/19 04:31 Nucleated RBC % Not Reportable 09/14/19 04:31 Seg Neutrophils # Man 11.8 K/mm3 (1.8-7.7) H 09/14/19 04:31 Band Neutrophils # 0.0 K/mm3 09/14/19 04:31 Lymphocytes # (Manual) 0.4 K/mm3 (1.2-5.4) L 09/14/19 04:31 Abs React Lymphs (Man) 0.0 K/mm3 09/14/19 04:31 Monocytes # (Manual) 0.0 K/mm3 (0.0-0.8) 09/14/19 04:31 Eosinophils # (Manual) 0.0 K/mm3 (0.0-0.4) 09/14/19 04:31 Basophils # (Manual) 0.0 K/mm3 (0.0-0.1) 09/14/19 04:31 Metamyelocytes # 0.0 K/mm3 09/14/19 04:31 Myelocytes # 0.0 K/mm3 09/14/19 04:31 Promyelocytes # 0.0 K/mm3 09/14/19 04:31 Blast Cells # 0.0 K/mm3 09/14/19 04:31 WBC Morphology Not Reportable 09/14/19 04:31 Hypersegmented Neuts Not Reportable 09/14/19 04:31 Hyposegmented Neuts Not Reportable 09/14/19 04:31 Hypogranular Neuts Not Reportable 09/14/19 04:31 Smudge Cells Not Reportable 09/14/19 04:31 Toxic Granulation Not Reportable 09/14/19 04:31 Toxic Vacuolation Not Reportable 09/14/19 04:31 Dohle Bodies Not Reportable 09/14/19 04:31 Pelger-Huet Anomaly Not Reportable 09/14/19 04:31 Elvin Rods Not Reportable 09/14/19 04:31 Platelet Estimate Consistent w auto 09/14/19 04:31 Clumped Platelets Not Reportable 09/14/19 04:31 Plt Clumps, EDTA Not Reportable 09/14/19 04:31 Large Platelets Not Reportable 09/14/19 04:31 Giant Platelets Not Reportable 09/14/19 04:31 Platelet Satelliting Not Reportable 09/14/19 04:31 Plt Morphology Comment Not Reportable 09/14/19 04:31 RBC Morphology Not Reportable 09/14/19 04:31 Dimorphic RBCs Not Reportable 09/14/19 04:31 Polychromasia Not Reportable 09/14/19 04:31 Hypochromasia Not Reportable 09/14/19 04:31 Poikilocytosis Not Reportable 09/14/19 04:31 Anisocytosis Not Reportable 09/14/19 04:31 Microcytosis Not Reportable 09/14/19 04:31 Macrocytosis Not Reportable 09/14/19 04:31 Spherocytes Not Reportable 09/14/19 04:31 Pappenheimer Bodies Not Reportable 09/14/19 04:31 Sickle Cells Not Reportable 09/14/19 04:31 Target Cells Not Reportable 09/14/19 04:31 Tear Drop Cells Not Reportable 09/14/19 04:31 Ovalocytes Not Reportable 09/14/19 04:31 Helmet Cells Not Reportable 09/14/19 04:31 [place] Bodies Not Reportable 09/14/19 04:31 [place] Rings Not Reportable 09/14/19 04:31 [place]ke Cells Not Reportable 09/14/19 04:31 Bite Cells Not Reportable 09/14/19 04:31 Crenated Cell Not Reportable 09/14/19 04:31 Elliptocytes Not Reportable 09/14/19 04:31 Acanthocytes (Spur) Not Reportable 09/14/19 04:31 Rouleaux Not Reportable 09/14/19 04:31 Hemoglobin C Crystals Not Reportable 09/14/19 04:31 Schistocytes Not Reportable 09/14/19 04:31 Malaria parasites Not Reportable 09/14/19 04:31 Sean Bodies Not Reportable 09/14/19 04:31 Hem Pathologist Commnt No 09/14/19 04:31 PT 12.8 Sec. (12.2-14.9) 09/13/19 18:46 INR 0.99 (0.87-1.13) 09/13/19 18:46 POC ABG pH 7.371 (7.35-7.45) 09/13/19 22:19 POC ABG pCO2 40.9 (35-45) 09/13/19 22:19 POC ABG pO2 348 (80-105) H 09/13/19 22:19 POC ABG HCO3 23.7 (22-26 mml/L) 09/13/19 22:19 POC ABG Total CO2 25 (23-27mmol/L) 09/13/19 22:19 POC ABG O2 Sat 100 09/13/19 22:19 POC ABG Base Excess -2 ((-2) - (+3)mmol/L) 09/13/19 22:19 FiO2 40 % 09/13/19 22:19 Sodium 139 mmol/L (137-145) 09/14/19 04:31 Potassium 5.0 mmol/L (3.6-5.0) D 09/14/19 04:31 Chloride 103.9 mmol/L (98-107) 09/14/19 04:31 Carbon Dioxide 23 mmol/L (22-30) 09/14/19 04:31 Anion Gap 17 mmol/L 09/14/19 04:31 BUN 7 mg/dL (7-17) 09/14/19 04:31 Creatinine 0.8 mg/dL (0.7-1.2) 09/14/19 04:31 Estimated GFR > 60 ml/min 09/14/19 04:31 BUN/Creatinine Ratio 9 % 09/14/19 04:31 Glucose 230 mg/dL (65-100) H 09/14/19 04:31 Calcium 9.0 mg/dL (8.4-10.2) 09/14/19 04:31 Magnesium 3.20 mg/dL (1.7-2.3) H 09/13/19 18:46 Total Creatine Kinase 74 units/L (30-135) 09/13/19 18:46 Active Medications - Current Medications Current Medications: Generic Name Dose Route Start Last Admin Trade Name Freq PRN Reason Stop Dose Admin Acetaminophen 650 mg 09/13/19 20:46 Tylenol PO Q4H PRN Pain MILD(1-3)/Fever >100.5/BOOKER Budesonide 0.5 mg 09/14/19 08:00 09/16/19 07:37 Pulmicort IH 0.5 mg Q12HRT JOSE D Administration Docusate Sodium 100 mg 09/13/19 22:00 09/16/19 10:01 Colace PO 100 mg BID OJSE D Administration Enoxaparin Sodium 40 mg 09/14/19 10:00 09/16/19 10:01 Lovenox SUB-Q 40 mg QDAY JOSE D Administration Ipratropium [place] 0.5 mg 09/16/19 08:00 09/16/19 13:27 Atrovent IH 0.5 mg TIDRT JOSE D Administration Levalbuterol HCl 0.63 mg 09/16/19 08:00 09/16/19 13:27 Xopenex IH 0.63 mg TID JOSE D Administration Montelukast Sodium 10 mg 09/14/19 18:00 09/16/19 17:19 Singulair PO 10 mg QPM JOSE D Administration Ondansetron HCl 4 mg 09/13/19 20:46 Zofran IV Q6H PRN Nausea And Vomiting Prednisone 60 mg 09/16/19 10:00 09/16/19 10:00 Deltasone PO 60 mg QDAY JOSE D Administration Sodium Chloride 10 ml 09/13/19 22:00 09/16/19 10:01 Sodium Chloride Flush Syringe 10 Ml IV 10 ml BID JOSE D Administration Sodium Chloride 10 ml 09/13/19 20:46 Sodium Chloride Flush Syringe 10 Ml IV PRN PRN LINE FLUSH
[2019-09-17] MEDS: ATROVENT IH SCH ×2 (09:31→14:57)
[2019-09-17] MEDS: XOPENEX IH SCH ×2 (09:31→14:58)
[2019-09-17] MEDS: PULMICORT IH SCH (09:32)
[2019-09-17] MEDS: ENOXAPARIN SUB-Q SCH (10:12)
[2019-09-17] MEDS: DELTASONE PO SCH (10:12)
[2019-09-17] MEDS: COLACE PO SCH (10:12)
[2019-09-17] MEDS: SODIUM CHLORIDE FLUSH SYRINGE 10 ML IV SCH (10:13)
--- NOTE | 2019-09-17 10:23 | Progress Note ---
Assessment and Plan 49 y/o with acute respiratory failure secondary to asthma exacerbation 1. No objection to discharge today. 2. Steroid taper as mentioned previously. Subjective Date of service: 09/17/19 Interval history: No acute events Objective Vital Signs - 12hr 09/16/19 09/17/19 09/17/19 23:03 05:20 08:00 Temperature 97.9 F 98.0 F Pulse Rate 73 62 Pulse Rate [ 82 Bilateral] Respiratory 18 15 Rate Respiratory 20 Rate [Bilateral ] Blood Pressure 135/49 125/57 O2 Sat by Pulse 98 96 Oximetry 09/17/19 09:35 Temperature Pulse Rate Pulse Rate [ Bilateral] Respiratory Rate Respiratory Rate [Bilateral ] Blood Pressure O2 Sat by Pulse 97 Oximetry Constitutional: no acute distress, alert Eyes: non-icteric ENT: oropharynx moist Neck: supple Ascultation: Bilateral: wheezes CBC and BMP: 09/14/19 04:31 09/14/19 04:31 ABG, PT/INR, D-dimer: ABG POC ABG pH 7.371 (7.35-7.45) 09/13/19 22:19 POC ABG pCO2 40.9 (35-45) 09/13/19 22:19 POC ABG pO2 348 (80-105) H 09/13/19 22:19 POC ABG HCO3 23.7 (22-26 mml/L) 09/13/19 22:19 POC ABG Total CO2 25 (23-27mmol/L) 09/13/19 22:19 POC ABG O2 Sat 100 09/13/19 22:19 PT/INR, D-dimer PT 12.8 Sec. (12.2-14.9) 09/13/19 18:46 INR 0.99 (0.87-1.13) 09/13/19 18:46 Abnormal lab findings: Abnormal Labs 09/13/19 09/13/19 09/14/19 18:46 22:19 04:31 WBC 12.2 H MCH 27 L Seg Neuts % (Manual) 97.0 H Lymphocytes % (Manual) 3.0 L Seg Neutrophils # Man 11.8 H Lymphocytes # (Manual) 0.4 L POC ABG pO2 348 H Glucose 118 H Magnesium 3.20 H 09/14/19 04:31 WBC MCH Seg Neuts % (Manual) Lymphocytes % (Manual) Seg Neutrophils # Man Lymphocytes # (Manual) POC ABG pO2 Glucose 230 H Magnesium
[2019-09-17 12:09] VITALS: BP 114/45
--- NOTE | 2019-09-17 13:47 | Discharge Summary ---
Providers - Providers Date of Admission: 09/13/19 20:49 Date of discharge: 09/17/19 Attending physician: CORINE RAO 09/13/19 20:46 Consult to Physician [CONS] Routine Comment: Consulting Provider: YULISSA DENG Physician Instructions: Reason For Exam: asthma exacerbation, hx intubation x5 Hospitalization Condition: Serious Disposition: DC-01 TO HOME OR SELFCARE Time spent for discharge: 32 min Core Measure Documentation - Palliative Care Palliative Care/ Comfort Measures: Not Applicable - Core Measures Any of the following diagnoses?: none Exam - Constitutional Vitals: Temp Pulse Resp BP Pulse Ox 97.8 F 84 16 114/45 96 09/17/19 11:43 09/17/19 11:43 09/17/19 11:43 09/17/19 11:43 09/17/19 11:43 Plan Activity: no restrictions Diet: low salt Additional Instructions: your O2 sats in room air and ambulatory are more than 95%. No need for home oxygen. If you have severe shortness of breath or chest pain contact M.D. or go to emergency room. Exercise as tolerated and weight reduction when stable Follow up with: Christina WEINSTEIN [Other] - 7 Days TERRY AMBRIZ MD [Staff Physician] - 14 Days Prescriptions: predniSONE [Deltasone] 6 tab PO DAILY #41 tablet
== END 2019-09-17 15:30 | disposition home or self-care (01) | DRG 189 ==
LOC: ED 18:18 → 4A 20:49 → IMCU 22:25 → 3A 09-14 21:06
PROVIDERS: ADMIT Internal Medicine; ATTEND Internal Medicine
PROC: 4A033R1 Measurement of Arterial Saturation, Peripheral, Percutaneous Approach (ICD-10-PCS; principal; 2019-09-13)
PROC: 5A09357 Assistance with Respiratory Ventilation, Less than 24 Consecutive Hours, Continuous Positive Airway Pressure (ICD-10-PCS; 2019-09-13)
PROC: 5A09357 Assistance with Respiratory Ventilation, Less than 24 Consecutive Hours, Continuous Positive Airway Pressure (ICD-10-PCS; 2019-09-14)
DX: J96.01 Acute respiratory failure with hypoxia (principal); J45.901 Unspecified asthma with (acute) exacerbation; J45.32 Mild persistent asthma with status asthmaticus; I10 Essential (primary) hypertension; Z98.51 Tubal ligation status; Z82.49 Family history of ischemic heart disease and other diseases of the circulatory system; Z79.899 Other long term (current) drug therapy
CPT/HCPCS: 36415; 36600; 71045; 80048; 82550; 82803; 83735; 85007; 85025; 85027; 85610; 90686; 93005; 93010; 94640; 94644; 94660; 94760; 96372; 96374; G0378; J0171; J1650; J2920; J2930; J3475; J7040; J7512

== ENCOUNTER 2019-10-16 19:12 | Observation (INO) | payer MEDICARE ==
[2019-10-16] MEDS ORDERED: ALBUTEROL 2.5 MG/3 ML NEBU IH ONE (19:34)
[2019-10-16] MEDS ORDERED: IPRATROPIUM 0.02% NEBU 2.5 ML IH ONE (19:34)
--- NOTE | 2019-10-16 19:52 | Emergency Department Report ---
ED Shortness of Breath HPI - General Chief Complaint: Dyspnea/Respdistress Stated Complaint: DINA Time Seen by Provider: 10/16/19 19:34 Source: patient, EMS Mode of arrival: Stretcher Limitations: No Limitations - History of Present Illness Initial Comments: 49-year-old -[place]os[place] female patient with history of severe persistent asthma and HTN presents via EMS for sudden onset of shortness of breath and chest tightness occurring about 45 minutes prior to arrival. Patient has history of severe recurrent asthma attacks in 5 intubations. Reports albuterol at home was not working and was given 5 mg of albuterol via nebulizer, 125 mg of Solu-Medrol, and 2 g of magnesium sulfate by EMS. Patient states her symptoms have not improved. She states this does feel like her asthma and denies any history of DVT/PE, leg pain/swelling, recent long travel, recent surgery, or hormone therapy. Patient also denies fever/chills/sweats, productive cough, or chest pain. MD Complaint: shortness of breath - Related Data Home Medications Medication Instructions Recorded Confirmed Last Taken ALBUTEROL Inhaler (OR & NICU) 2 puff IH Q4H PRN 09/14/19 09/14/19 Unknown [ProAir HFA Inhaler] ALBUTEROL NEB's [Proventil 0.083% 2.5 mg IH QID 09/14/19 09/14/19 Unknown NEBS] Fluticasone/Vilanterol [Breo 1 each IH QDAY 09/14/19 09/14/19 Unknown Ellipta 200-25 Mcg INH] Ipratropium [Atrovent NEB] 0.5 mg IH TID 09/14/19 09/14/19 Unknown Mepolizumab [Nucala] 100 mg SUB-Q Q4W 09/14/19 09/14/19 09/07/19 Previous Rx's Medication Instructions Recorded Last Taken Type Montelukast [Singulair] 10 mg PO QPM #30 tablet 03/21/17 09/13/19 Rx raNITIdine HCl [Zantac] 150 mg PO BID #60 tablet 03/21/17 09/13/19 Rx predniSONE [Deltasone] 6 tab PO DAILY #41 tablet 09/17/19 Unknown Rx Allergies Allergy/AdvReac Type Severity Reaction Status Date / Time wheat Allergy Unknown Verified 09/15/19 10:43 ED Review of Systems ROS: Stated complaint: DINA Other details as noted in HPI Comment: All other systems reviewed and negative Respiratory: see HPI ED Past Medical Hx - Past Medical History Hx Hypertension: Yes (denies) Hx Heart Attack/AMI: No Hx Congestive Heart Failure: No Hx Diabetes: No Hx Deep Vein Thrombosis: No Hx Pulmonary Embolism: No Hx Asthma: Yes Hx COPD: No Hx Tuberculosis: No Hx HIV: No Additional medical history: (5) previous intubations due to asthma complications - Surgical History Past Surgical History?: Yes Hx Coronary Stent: No Hx Open Heart Surgery: No Hx Pacemaker: No Hx Internal Defibrillator: No Hx Cholecystectomy: No Hx Appendectomy: No Hx Breast Surgery: No Additional Surgical History: tubal ligation - Social History Smoking Status: Never Smoker - Medications Home Medications: Home Medications Medication Instructions Recorded Confirmed Last Taken Type Montelukast [Singulair] 10 mg PO QPM #30 tablet 03/21/17 09/14/19 09/13/19 Rx raNITIdine HCl [Zantac] 150 mg PO BID #60 tablet 03/21/17 09/14/19 09/13/19 Rx ALBUTEROL Inhaler (OR & NICU) 2 puff IH Q4H PRN 09/14/19 09/14/19 Unknown History [ProAir HFA Inhaler] ALBUTEROL NEB's [Proventil 0.083% 2.5 mg IH QID 09/14/19 09/14/19 Unknown History NEBS] Fluticasone/Vilanterol [Breo 1 each IH QDAY 09/14/19 09/14/19 Unknown History Ellipta 200-25 Mcg INH] Ipratropium [Atrovent NEB] 0.5 mg IH TID 09/14/19 09/14/19 Unknown History Mepolizumab [Nucala] 100 mg SUB-Q Q4W 09/14/19 09/14/19 09/07/19 History predniSONE [Deltasone] 6 tab PO DAILY #41 tablet 09/17/19 Unknown Rx ED Physical Exam - General Limitations: No Limitations General appearance: alert, in distress - Head Head exam: Present: atraumatic, normocephalic - Eye Eye exam: Present: normal appearance. Absent: scleral icterus - ENT ENT exam: Present: normal exam - Neck Neck exam: Present: normal inspection - Respiratory Respiratory exam: Present: wheezes, accessory muscle use. Absent: rales, rhonchi, chest wall tenderness - Cardiovascular Cardiovascular Exam: Present: normal rhythm, tachycardia - GI/Abdominal GI/Abdominal exam: Present: soft. Absent: distended, tenderness - Extremities Exam Extremities exam: Absent: pedal edema, calf tenderness - Neurological Exam Neurological exam: Present: alert, oriented X3 - Psychiatric Psychiatric exam: Present: normal affect, normal mood - Skin Skin exam: Present: warm, dry, intact, normal color. Absent: rash, cyanosis, diaphoretic ED Course Vital Signs 10/16/19 10/16/19 10/16/19 19:18 19:50 19:52 Temperature 97.7 F Pulse Rate 125 H 110 H Pulse Rate [ 110 H Bilateral Throughout] Respiratory 24 16 Rate Respiratory 16 Rate [Bilateral Throughout] Blood Pressure 147/93 142/79 Blood Pressure [Right] O2 Sat by Pulse 99 100 Oximetry 10/16/19 10/16/19 10/16/19 20:17 20:41 21:41 Temperature Pulse Rate 105 H 103 H Pulse Rate [ Bilateral Throughout] Respiratory 18 20 18 Rate Respiratory Rate [Bilateral Throughout] Blood Pressure Blood Pressure 137/81 140/66 [Right] O2 Sat by Pulse 98 98 98 Oximetry 10/16/19 22:28 Temperature Pulse Rate 109 H Pulse Rate [ Bilateral Throughout] Respiratory 21 Rate Respiratory Rate [Bilateral Throughout] Blood Pressure 123/66 Blood Pressure [Right] O2 Sat by Pulse 99 Oximetry ED Medical Decision Making - Lab Data Result diagrams: 10/16/19 20:29 10/16/19 20:29 Lab Results 10/16/19 10/16/19 Range/Units 20:29 20:29 WBC 13.8 H (4.5-11.0) K/mm3 RBC 4.61 (3.65-5.03) M/mm3 Hgb 12.5 (10.1-14.3) gm/dl Hct 39.9 (30.3-42.9) % MCV 87 (79-97) fl MCH 27 L (28-32) pg MCHC 31 (30-34) % RDW 13.9 (13.2-15.2) % Plt Count 235 (140-440) K/mm3 Sodium 140 (137-145) mmol/L Potassium 3.6 (3.6-5.0) mmol/L Chloride 102.7 (98-107) mmol/L Carbon Dioxide 24 (22-30) mmol/L Anion Gap 17 mmol/L BUN 9 (7-17) mg/dL Creatinine 0.9 (0.7-1.2) mg/dL Estimated GFR > 60 ml/min BUN/Creatinine Ratio 10 % Glucose 145 H (65-100) mg/dL Calcium 8.7 (8.4-10.2) mg/dL - Radiology Data Radiology results: report reviewed CHEST 1 VIEW INDICATION / CLINICAL INFORMATION: shortness of breath. COMPARISON: Chest radiograph 09/13/2019 FINDINGS: HEART / MEDIASTINUM: Normal cardiomediastinal silhouette allowing for AP techn ique. LUNGS / PLEURA: No significant pulmonary or pleural abnormality. No pneumothorax. IMPRESSION: 1. No acute finding. No significant change. - Medical Decision Making 49-year-old female patient of severe asthma requiring multiple hospitalizations and 5 intubations presents for asthma exacerbation x today. Pt was given 5 mg of albuterol via nebulizer, 125 mg of Solu-Medrol, and 2 g of magnesium sulfate via EMS. O2 at 97% on room air. Pt has received an hour long duoneb and is currently on BIPAP. Pt states she continues to be short of breath with chest tightness. Wheezing still noted on exam post neb treatment. CXR wnl. WBC at 13.8. Discussed pt with hospitalist, Dr. Kebede-will admit for further treatment and evaluation. Critical care attestation.: If time is entered above; I have spent that time in minutes in the direct care of this critically ill patient, excluding procedure time. ED Disposition Clinical Impression: Asthma with acute exacerbation in adult Qualifiers: Asthma severity: severe Asthma persistence: persistent Qualified Code(s): J45.51 - Severe persistent asthma with (acute) exacerbation Disposition: OP ADMIT IP TO THIS HOSP Is pt being admited?: Yes Condition: Stable Referrals: JUAN JOSÉ MCGILL MD [Primary Care Provider] - 3-5 Days
--- NOTE | 2019-10-16 20:54 | XRay Report ---
CHEST 1 VIEW INDICATION / CLINICAL INFORMATION: shortness of breath. COMPARISON: Chest radiograph 09/13/2019 FINDINGS: HEART / MEDIASTINUM: Normal cardiomediastinal silhouette allowing for AP technique. LUNGS / PLEURA: No significant pulmonary or pleural abnormality. No pneumothorax. IMPRESSION: 1. No acute finding. No significant change. Signer Name: Edu Resendiz MD Signed: 10/16/2019 8:49 PM Workstation Name: [id number]
[2019-10-16 20:59] LABS: Hematocrit 39.9 % (30.3-42.9); Hemoglobin 12.5 gm/dl (10.1-14.3); Mean Corpuscular HGB Conc 31 % (30-34); Mean Corpuscular Volume 87 fl (79-97); Platelet Count 235 K/mm3 (140-440); Red Blood Count 4.61 M/mm3 (3.65-5.03); Red Cell Distribution Width 13.9 % (13.2-15.2)
[2019-10-16 21:03] LABS: BUN/Creatinine Ratio 10; Blood Urea Nitrogen 9 mg/dL (7-17); Calcium 8.7 mg/dL (8.4-10.2); Hemolysis Index 9
[2019-10-16] MEDS ORDERED: ONDANSETRON 4 MG/2 ML INJ IV PRN (22:40)
[2019-10-16] MEDS ORDERED: ACETAMINOPHEN 325 MG TAB PO PRN (22:40)
--- NOTE | 2019-10-16 22:45 | History and Physical Report ---
History of Present Illness Date of examination: 10/16/19 History of present illness: 49-year-old woman with a history of asthma, hypertension comes to emergency room with complaints of shortness of breath, nonproductive cough that started today. She used her nebulizer treatments without success. Patient was given st eroids in the field, in the ER she was started on breathing treatment, placed on BiPAP Review of systems Constitutional: no weight loss, chills, fever Ears, eyes, nose, mouth and throat: no nasal congestion, no nasal discharge, no sinus pressure, no vision change, no red eye. Neck: No neck pain or rigidity. Cardiovascular: no chest pain, palpitations Respiratory: + cough, shortness of breath Gastrointestinal: no abdominal pain hematochezia Genitourinary : no frequency , no hematuria Musculoskeletal: no joint swelling or muscle ache Integumentary: no rash, no pruritis Neurological: no parathesias, no numbness, no focal weakness Endocrine: no cold or heat intolerance, no polyuria or polydipsia Hematologic/Lymphatic: no easy bruising, no easy bleeding, no gland swelling Allergic/Immunologic: no urticaria, no angioedema. PAST MEDICAL HISTORY:asthma, hypertension PAST SURGICAL HISTORY: Tubal ligation SOCIAL HISTORY: Denies alcohol, tobacco, drugs FAMILY HISTORY: Hypertension Medications and Allergies Allergies Allergy/AdvReac Type Severity Reaction Status Date / Time wheat Allergy Unknown Verified 09/15/19 10:43 Home Medications Medication Instructions Recorded Confirmed Last Taken Type Montelukast [Singulair] 10 mg PO QPM #30 tablet 03/21/17 09/14/19 09/13/19 Rx raNITIdine HCl [Zantac] 150 mg PO BID #60 tablet 03/21/17 09/14/19 09/13/19 Rx ALBUTEROL Inhaler (OR & NICU) 2 puff IH Q4H PRN 09/14/19 09/14/19 Unknown History [ProAir HFA Inhaler] ALBUTEROL NEB's [Proventil 0.083% 2.5 mg IH QID 09/14/19 09/14/19 Unknown History NEBS] Fluticasone/Vilanterol [Breo 1 each IH QDAY 09/14/19 09/14/19 Unknown History Ellipta 200-25 Mcg INH] Ipratropium [Atrovent NEB] 0.5 mg IH TID 09/14/19 09/14/19 Unknown History Mepolizumab [Nucala] 100 mg SUB-Q Q4W 09/14/19 09/14/19 09/07/19 History predniSONE [Deltasone] 6 tab PO DAILY #41 tablet 09/17/19 Unknown Rx Active Meds: Active Medications Acetaminophen (Tylenol) 650 mg PO Q4H PRN PRN Reason: Pain MILD(1-3)/Fever >100.5/BOOKER Albuterol/Ipratropium (Duoneb *Not For Prn Use*) 1 ampul IH Q6HRT JOSE D Enoxaparin Sodium (Enoxaparin) 30 mg SUB-Q QDAY JOSE D Ondansetron HCl (Zofran) 4 mg IV Q8H PRN PRN Reason: Nausea And Vomiting Sodium Chloride (Sodium Chloride Flush Syringe 10 Ml) 10 ml IV BID JOSE D Sodium Chloride (Sodium Chloride Flush Syringe 10 Ml) 10 ml IV PRN PRN PRN Reason: LINE FLUSH Exam - Physical Exam Narrative exam: en. appearance: Patient lying in bed, no apparent distress HEENT: Normocephalic, atraumatic, pupils equally round and reactive to light, extraocular movement intact, and no sclericterus,. No JVD or thyromegaly or nodule,neck supple, no carotid bruit ,mucous membranes moist, no exudate or erythema Heart: S1, S2, regular rate and rhythm Lungs: Wheezing, decreased air entry bilaterally, breathing comfortable Abdomen: Positive bowel sounds, nontender, nondistended, no organomegaly Extremity: No edema, cyanosis, clubbing Skin: No rash, nodules, warm, dry Neuro: Oriented 3, cranial nerves II-12 intact, speech is fluent, motor and sensory intact - Constitutional Vitals: Temp Pulse Resp BP Pulse Ox 97.7 F 109 H 21 123/66 99 10/16/19 19:18 10/16/19 22:28 10/16/19 22:28 10/16/19 22:28 10/16/19 22:28 Results - Labs CBC & Chem 7: 10/16/19 20:29 10/16/19 20:29 Labs: Abnormal lab results 10/16/19 10/16/19 Range/Units 20:29 20:29 WBC 13.8 H (4.5-11.0) K/mm3 MCH 27 L (28-32) pg Glucose 145 H (65-100) mg/dL Assessment and Plan Assessment Acute respiratory Failure Asthma exacerbation hypertension Plan Admit to medicine Continue BIPAP, Start IV high-dose steroids, neb of the treatments DVT prophylaxis, continue appropriate outpatient medications
[2019-10-17] MEDS: methylPREDNISolone Sod Succinate 125 MG/2 ML INJ IV SCH ×4 (00:43→17:31)
[2019-10-17] MEDS: IPRATROPIUM/ALBUTEROL SULFATE 3 ML AMPUL.NEB IH SCH ×4 (01:53→19:12)
[2019-10-17 07:46] LABS: Hematocrit 40.3 % (30.3-42.9); Hemoglobin 12.7 gm/dl (10.1-14.3); Mean Corpuscular HGB Conc 32 % (30-34); Mean Corpuscular Volume 86 fl (79-97); Platelet Count 261 K/mm3 (140-440); Red Blood Count 4.68 M/mm3 (3.65-5.03); Red Cell Distribution Width 13.9 % (13.2-15.2)
[2019-10-17 08:08] LABS: BUN/Creatinine Ratio 13; Blood Urea Nitrogen 12 mg/dL (7-17); Calcium 9.2 mg/dL (8.4-10.2); Hemolysis Index 20
[2019-10-17 09:54] LABS: Band Neutrophils # (Manual) 0.2 K/mm3; Basophils % (Manual) 0 % (0.0-1.8); Eosinophils % (Manual) 0 % (0.0-4.3); Monocytes % (Manual) 0 % (0.0-7.3); Total Cells Counted 100
[2019-10-17 09:57] LABS: Platelet Estimate Consistent w Auto; RBC Morphology Normal
[2019-10-17] MEDS ORDERED: ENOXAPARIN 30 MG/0.3 ML INJ SUB-Q SCH (10:00)
[2019-10-17] MEDS: ENOXAPARIN 40 MG/0.4 ML INJ SUB-Q SCH (10:22)
[2019-10-17] MEDS: amLODIPine 5 MG TAB PO SCH (14:12)
--- NOTE | 2019-10-17 14:22 | Progress Note ---
Assessment and Plan Acute hypoxic respiratory Failure - required BiPAP o/n, now on N/C O2 - cont nebs, iv steroid Asthma exacerbation - cont IV high-dose steroids, neb treatments hypertension, start on norvasc Morbid obesity, wt reduction diet and exercise as outpt SIRS w/o organ dysfunction, due to asthma exacerbation - cont to monitor DVT Px, lovenox Subjective Date of service: 10/17/19 Interval history: Patient seen and examined still has diffuse wheezing BP elevated denies chest pain, but has cough tolerating diet Objective - Constitutional Vitals: Vital Signs - 12hr 10/17/19 10/17/19 09:50 14:12 Pulse Rate 98 H Pulse Rate [ 94 H Bilateral Throughout] Respiratory 26 H Rate [Bilateral Throughout] Blood Pressure 151/65 O2 Sat by Pulse 96 Oximetry General appearance: Present: no acute distress, obese - EENT Eyes: PERRL, EOM intact ENT: hearing intact, clear oral mucosa Ears: bilateral: normal - Neck Neck: supple, normal ROM - Respiratory Respiratory effort: normal Respiratory: bilateral: wheezing - Cardiovascular Rhythm: regular Heart Sounds: Present: S1 & S2. Absent: gallop, rub Extremities: pulses intact, No edema, normal color, Full ROM - Gastrointestinal General gastrointestinal: Present: soft, non-tender, non-distended, normal bowel sounds - Integumentary Integumentary: clear, warm, dry - Musculoskeletal Musculoskeletal: 1, strength equal bilaterally - Neurologic Neurologic: moves all extremities - Psychiatric Psychiatric: memory intact, appropriate mood/affect, intact judgment & insight - Labs CBC & Chem 7: 10/18/19 05:57 10/17/19 06:47 Labs: Abnormal lab results 10/16/19 10/16/19 10/17/19 Range/Units 20:29 20:29 06:47 WBC 13.8 H 20.5 H (4.5-11.0) K/mm3 MCH 27 L 27 L (28-32) pg Seg Neuts % (Manual) 93.0 H (40.0-70.0) % Lymphocytes % (Manual) 5.0 L (13.4-35.0) % Seg Neutrophils # Man 19.1 H (1.8-7.7) K/mm3 Lymphocytes # (Manual) 1.0 L (1.2-5.4) K/mm3 Carbon Dioxide (22-30) mmol/L Glucose 145 H (65-100) mg/dL 10/17/ Range/Units 06:47 WBC (4.5-11.0) K/mm3 MCH (28-32) pg Seg Neuts % (Manual) (40.0-70.0) % Lymphocytes % (Manual) (13.4-35.0) % Seg Neutrophils # Man (1.8-7.7) K/mm3 Lymphocytes # (Manual) (1.2-5.4) K/mm3 Carbon Dioxide 17 L D (22-30) mmol/L Glucose 169 H (65-100) mg/dL
[2019-10-17] MEDS ORDERED: ALBUTEROL 2.5 MG/3 ML NEBU IH PRN (19:16)
[2019-10-18] MEDS: methylPREDNISolone Sod Succinate 125 MG/2 ML INJ IV SCH ×3 (00:57→11:31)
[2019-10-18] MEDS: IPRATROPIUM/ALBUTEROL SULFATE 3 ML AMPUL.NEB IH SCH ×3 (02:46→18:48)
[2019-10-18 06:13] LABS: Hematocrit 38.4 % (30.3-42.9); Hemoglobin 12.1 gm/dl (10.1-14.3); Mean Corpuscular HGB Conc 32 % (30-34); Mean Corpuscular Volume 86 fl (79-97); Platelet Count 239 K/mm3 (140-440); Red Blood Count 4.45 M/mm3 (3.65-5.03); Red Cell Distribution Width 13.8 % (13.2-15.2)
[2019-10-18 08:18] LABS: Band Neutrophils # (Manual) 0.2 K/mm3; Total Cells Counted 100
[2019-10-18 08:19] LABS: Basophils % (Manual) 0 % (0.0-1.8); Eosinophils % (Manual) 0 % (0.0-4.3); Platelet Estimate Consistent w Auto; RBC Morphology Normal
[2019-10-18] MEDS: amLODIPine 5 MG TAB PO SCH (11:29)
[2019-10-18] MEDS: ENOXAPARIN 40 MG/0.4 ML INJ SUB-Q SCH (11:30)
[2019-10-18 12:42] VITALS: BP 155/84
--- NOTE | 2019-10-18 14:14 | Discharge Summary ---
Providers - Providers Date of Admission: 10/16/19 22:40 Date of discharge: 10/18/19 Attending physician: JENI THOMAS Primary care physician: JUAN JOSÉ MCGILL Hospitalization Condition: Fair Hospital course: 49-year-old woman with a history of asthma, hypertension comes to emergency room with complaints of shortness of breath, nonproductive cough for 1 day. She used her nebulizer treatments without success. Patient was given steroids in the field, in the ER she was started on breathing treatment, placed on BiPAP, and admitted with asthma exacerbation. Acute hypoxic respiratory Failure due to asthma exacerbation - required BiPAP o/n, now on N/C O2 - cont nebs, iv steroid Asthma exacerbation, managed with IV high-dose steroids, neb treatments hypertension, started on norvasc Morbid obesity, wt reduction diet and exercise as outpt recommended SIRS w/o organ dysfunction, due to asthma exacerbation - cont to monitor Total time spent on discharge, 31 mins Disposition: DC- TO HOME OR SELFCARE - Discharge Diagnoses (1) HTN (hypertension) Status: Acute (2) SIRS without acute organ dysfunction due to non-infectious process Status: Acute (3) Acute respiratory failure Status: Acute (4) Asthma exacerbation Status: Acute Qualifiers: Asthma severity: moderate persistent Qualified Code(s): J45.41 - Moderate persistent asthma with (acute) exacerbation Core Measure Documentation - Palliative Care Palliative Care/ Comfort Measures: Not Applicable - Core Measures Any of the following diagnoses?: none Exam - Constitutional Vitals: Temp Pulse Resp BP Pulse Ox 98.6 F 108 H 18 155/84 97 10/18/19 12:38 10/18/19 12:38 10/18/19 12:38 10/18/19 12:38 10/18/19 12:38 Plan Activity: no restrictions Diet: low fat, low cholesterol, low salt Plan of Treatment: 1.Follow up with PCP in 1 week. 2.Follow up with Pulmonology in 1 week. 3.Prednisone taper and then continue Prednisone 10 mg po daily Follow up with: JUAN JOSÉ MCGILL MD [Primary Care Provider] - 3-5 Days Prescriptions: RX: amLODIPine 5 mg PO DAILY #30 tab Prednisone [predniSONE 5 mg (6-Day Pack, 21 Tabs)] 5 mg PO .TAPER #1 tab.ds.pk
== END 2019-10-18 16:08 | disposition home or self-care (01) ==
LOC: ED 19:12 → 3A 22:40
PROVIDERS: ADMIT Internal Medicine; ATTEND Internal Medicine
DX: J96.00 Acute respiratory failure, unspecified whether with hypoxia or hypercapnia (principal); J45.901 Unspecified asthma with (acute) exacerbation; I10 Essential (primary) hypertension; Z98.51 Tubal ligation status
CPT/HCPCS: 36415; 71045; 80048; 85007; 85025; 85027; 87116; 94640; 94644; 94760; 96372; 96374; 96376; 99284; G0378; J1650; J2930

== ENCOUNTER 2019-11-11 13:01 | Inpatient (IN) | payer MEDICARE ==
[2019-11-11] MEDS ORDERED: predniSONE 20 MG TAB PO ONE (13:09)
[2019-11-11] MEDS ORDERED: IPRATROPIUM/ALBUTEROL SULFATE 3 ML AMPUL.NEB IH ONE ×3 (13:09→15:44)
--- NOTE | 2019-11-11 13:13 | Event Note ---
ED Screening Note Date of service: 11/11/19 Time: 13:10 ED Screening Note: This is a 49 y.o. F. that presents to the ER with chest tightness and dyspnea for 4 hours. PMH asthma Using inhaler without relief. Denies fever and cough This initial assessment/diagnostic orders/clinical plan/treatment(s) is/are subject to change based on patients health status, clinical progression and re- assessment by fellow clinical providers in the ED. Further treatment and workup at subsequent clinical providers discretion. Patient/guardian urged not to elope from the ED as their condition may be serious if not clinically assessed and managed. Initial orders include: CXR Duoneb and prednisone
--- NOTE | 2019-11-11 15:31 | XRay Report ---
CHEST 2 VIEWS INDICATION: sob and chest pain. COMPARISON: 10/16/2019 FINDINGS: Support devices: None. Heart: Within normal limits. Lungs/Pleura: No acute air space or interstitial disease. No significant pleural effusion. IMPRESSION: No acute findings. Signer Name: Nacho Goodson MD Signed: 11/11/2019 3:27 PM Workstation Name: [id number]
[2019-11-11] MEDS ORDERED: MAGNESIUM SULFATE 2 GM/50 ML BAG IV ONE (16:31)
[2019-11-11] MEDS ORDERED: ALBUTEROL 2.5 MG/3 ML NEBU IH ONE (16:31)
[2019-11-11] MEDS ORDERED: methylPREDNISolone Sod Succinate 125 MG/2 ML INJ IV ONE (16:31)
[2019-11-11] MEDS ORDERED: IPRATROPIUM 0.02% NEBU 2.5 ML IH ONE (16:31)
--- NOTE | 2019-11-11 18:37 | Emergency Department Report ---
ED General Adult HPI - General Chief complaint: Adult Asthma Stated complaint: ASTHMA/SOB Time Seen by Provider: 11/11/19 13:09 Source: patient Mode of arrival: Ambulatory Limitations: No Limitations - History of Present Illness Initial comments: The patient presents to the emergency department with a chief complaint of an asthma attack. Patient states that she's had difficult breathing since awakening this morning. Patient states she has not had any relief with at home breathing treatments. Patient denies any chest pain, dull pain, or headache. -: Sudden Severity scale (0 -10): 0 Improves with: none Worsens with: none Associated Symptoms: denies other symptoms Treatments Prior to Arrival: none - Related Data Home Medications Medication Instructions Recorded Confirmed Last Taken ALBUTEROL Inhaler (OR & NICU) 2 puff IH Q4H PRN 09/14/19 10/17/19 10/16/19 16:00 [ProAir HFA Inhaler] ALBUTEROL NEB's [Proventil 0.083% 2.5 mg IH QID 09/14/19 10/17/19 Unknown NEBS] Fluticasone/Vilanterol [Breo 1 each IH QDAY 09/14/19 10/17/19 Unknown Ellipta 200-25 Mcg INH] Ipratropium [Atrovent NEB] 0.5 mg IH TID 09/14/19 10/17/19 10/16/19 18:00 Mepolizumab 100 mg SUB-Q QMONTH 10/17/19 10/17/19 10/05/19 Montelukast [Singulair] 1 mg PO QPM 10/17/19 10/17/19 Unknown predniSONE [Deltasone] 1 tab PO DAILY 10/17/19 10/17/19 10/16/19 11:00 Previous Rx's Medication Instructions Recorded Last Taken Type raNITIdine HCl [Zantac] 150 mg PO BID #60 tablet 03/21/17 10/16/19 10:00 Rx Prednisone [predniSONE 5 mg (6-Day 5 mg PO .TAPER #1 tab.ds.pk 10/18/19 Unknown Rx Pack, 21 Tabs)] amLODIPine 5 mg PO DAILY #30 tab 10/18/19 Unknown Rx Allergies Allergy/AdvReac Type Severity Reaction Status Date / Time wheat Allergy Unknown Verified 11/11/19 13:04 ED Review of Systems ROS: Stated complaint: ASTHMA/SOB Other details as noted in HPI Comment: All other systems reviewed and negative Constitutional: denies: chills, fever Eyes: denies: eye pain, eye discharge, vision change ENT: denies: ear pain, throat pain Respiratory: shortness of breath. denies: cough, wheezing Cardiovascular: denies: chest pain, palpitations Endocrine: no symptoms reported Gastrointestinal: denies: abdominal pain, nausea, diarrhea Genitourinary: denies: urgency, dysuria, discharge Musculoskeletal: denies: back pain, joint swelling, arthralgia Skin: denies: rash, lesions Neurological: denies: headache, weakness, paresthesias Psychiatric: denies: anxiety, depression Hematological/Lymphatic: denies: easy bleeding, easy bruising ED Past Medical Hx - Past Medical History Previous Medical History?: Yes Hx Hypertension: Yes (denies) Hx Heart Attack/AMI: No Hx Congestive Heart Failure: No Hx Diabetes: No Hx Deep Vein Thrombosis: No Hx Pulmonary Embolism: No Hx Asthma: Yes Hx COPD: No Hx Tuberculosis: No Hx HIV: No Additional medical history: (5) previous intubations due to asthma complications - Surgical History Hx Coronary Stent: No Hx Open Heart Surgery: No Hx Pacemaker: No Hx Internal Defibrillator: No Hx Cholecystectomy: No Hx Appendectomy: No Hx Breast Surgery: No Additional Surgical History: tubal ligation - Social History Smoking Status: Never Smoker Substance Use Type: None - Medications Home Medications: Home Medications Medication Instructions Recorded Confirmed Last Taken Type raNITIdine HCl [Zantac] 150 mg PO BID #60 tablet 03/21/17 10/17/19 10/16/19 10:00 Rx ALBUTEROL Inhaler (OR & NICU) 2 puff IH Q4H PRN 09/14/19 10/17/19 10/16/19 16:00 History [ProAir HFA Inhaler] ALBUTEROL NEB's [Proventil 0.083% 2.5 mg IH QID 09/14/19 10/17/19 Unknown History NEBS] Fluticasone/Vilanterol [Breo 1 each IH QDAY 09/14/19 10/17/19 Unknown History Ellipta 200-25 Mcg INH] Ipratropium [Atrovent NEB] 0.5 mg IH TID 09/14/19 10/17/19 10/16/19 18:00 History Mepolizumab 100 mg SUB-Q QMONTH 10/17/19 10/17/19 10/05/19 History Montelukast [Singulair] 1 mg PO QPM 10/17/19 10/17/19 Unknown History predniSONE [Deltasone] 1 tab PO DAILY 10/17/19 10/17/19 10/16/19 11:00 History Prednisone [predniSONE 5 mg (6-Day 5 mg PO .TAPER #1 tab.ds.pk 10/18/19 Unknown Rx Pack, 21 Tabs)] amLODIPine 5 mg PO DAILY #30 tab 10/18/19 Unknown Rx ED Physical Exam - General Limitations: No Limitations General appearance: alert, other (moderate respiratory distress) - Head Head exam: Present: atraumatic, normocephalic - Eye Eye exam: Present: normal appearance - ENT ENT exam: Present: mucous membranes moist - Neck Neck exam: Present: normal inspection - Respiratory Respiratory exam: Present: respiratory distress, other (using accessory muscles to breathe) - Cardiovascular Cardiovascular Exam: Present: regular rate, normal rhythm. Absent: systolic murmur, diastolic murmur, rubs, gallop - GI/Abdominal GI/Abdominal exam: Present: soft, normal bowel sounds. Absent: distended, tenderness - Extremities Exam Extremities exam: Present: normal inspection - Back Exam Back exam: Present: normal inspection - Neurological Exam Neurological exam: Present: alert, oriented X3, CN II-XII intact. Absent: motor sensory deficit - Psychiatric Psychiatric exam: Present: normal affect, normal mood - Skin Skin exam: Present: warm, dry, intact, normal color. Absent: rash ED Course Vital Signs 11/11/19 11/11/19 11/11/19 13:08 15:45 16:18 Temperature 99.6 F 101.1 F H Pulse Rate 130 H 116 H 123 H Pulse Rate [ Posterior Bilateral Throughout] Respiratory 22 32 H 20 Rate Respiratory Rate [Posterior Bilateral Throughout] Blood Pressure 180/83 Blood Pressure 170/56 107/68 [Left] O2 Sat by Pulse 94 93 94 Oximetry 11/11/19 11/11/19 16:19 18:49 Temperature Pulse Rate Pulse Rate [ 123 H 123 H Posterior Bilateral Throughout] Respiratory Rate Respiratory 24 22 Rate [Posterior Bilateral Throughout] Blood Pressure Blood Pressure [Left] O2 Sat by Pulse Oximetry ED Medical Decision Making - Radiology Data Radiology results: report reviewed - Medical Decision Making Patient received 1 DuoNeb breathing treatment without any improvement Heart Neb was ordered along with IV magnesium and IV steroids with minimal improvement The patient States that she does not feel like she is able to go home Critical Care Time: Yes Critical care time in (mins) excluding proc time.: 35 Critical care attestation.: If time is entered above; I have spent that time in minutes in the direct care of this critically ill patient, excluding procedure time. ED Disposition Clinical Impression: Asthma attack, Asthma exacerbation Disposition: DC-09 OP ADMIT IP TO THIS HOSP Is pt being admited?: Yes Does the pt Need Aspirin: No Condition: Fair Referrals: JUAN JOSÉ MCGILL MD [Primary Care Provider] - 3-5 Days
[2019-11-11 19:37] LABS: Hematocrit 38.9 % (30.3-42.9); Hemoglobin 12.3 gm/dl (10.1-14.3); Mean Corpuscular HGB Conc 32 % (30-34); Mean Corpuscular Volume 86 fl (79-97); Platelet Count 240 K/mm3 (140-440); Red Blood Count 4.52 M/mm3 (3.65-5.03); Red Cell Distribution Width 13.8 % (13.2-15.2)
[2019-11-11 19:59] LABS: BUN/Creatinine Ratio 8; Blood Urea Nitrogen 7 mg/dL (7-17); Calcium 8.9 mg/dL (8.4-10.2); Hemolysis Index 9
[2019-11-11 20:51] LABS: Basophils % (Manual) 0 % (0.0-1.8); Eosinophils % (Manual) 0 % (0.0-4.3); Platelet Estimate Consistent w Auto; RBC Morphology Normal; Total Cells Counted 100
[2019-11-12] MEDS ORDERED: METOCLOPRAMIDE 10 MG/2 ML INJ IV PRN (00:04)
[2019-11-12] MEDS ORDERED: oxyCODONE /ACETAMINOPHEN 5-325MG TAB PO PRN (00:04)
[2019-11-12] MEDS ORDERED: ONDANSETRON 4 MG/2 ML INJ IV PRN ×2 (00:04→00:09)
[2019-11-12] MEDS ORDERED: ACETAMINOPHEN 325 MG TAB PO PRN ×2 (00:04→00:09)
[2019-11-12] MEDS ORDERED: HYDROmorphone 1 MG/1 ML INJ IV PRN (00:04)
[2019-11-12] MEDS ORDERED: IPRATROPIUM/ALBUTEROL SULFATE 3 ML AMPUL.NEB IH PRN ×2 (00:06→00:11)
[2019-11-12] MEDS ORDERED: NON-FORMULARY EACH (Ranitidine Hcl [Zantac] 150 MG) PO SCH (00:15)
[2019-11-12] MEDS ORDERED: SODIUM CHLORIDE 0.9% 1000 ML 1,000 ML IV SCH (00:15)
--- NOTE | 2019-11-12 00:17 | History and Physical Report ---
History of Present Illness Date of examination: 11/12/19 Date of admission: 11/11/19 22:54 Chief complaint: Severe wheezing and shortness of breath since morning History of present illness: 49-year-old -[place] female with history of severe asthma on biologicals and Singulair comes in for increasing wheezing since morning. Not responding to nebulizer treatment at home. Patient is also on oral prednisone and not responding. Continues to have severe wheezing. Cough productive of mucoid sputum. Has low-grade fever. No exacerbating or relieving factors. No recent travel. Past Medical History Previous Medical History?: Yes Hypertension: Yes (denies) Asthma: Yes Additional medical history: (5) previous intubations due to asthma complications Surgical History Respiratory additional Surgical History: tubal ligation Social History Smoking Status: Never Smoker Substance Use Type: None Family history Htn - Medications Home Medications: Home Medications Medication Instructions Recorded Confirmed Last Taken Type raNITIdine HCl [Zantac] 150 mg PO BID #60 tablet 03/21/17 10/17/19 10/16/19 10:00 Rx ALBUTEROL Inhaler (OR & NICU) 2 puff IH Q4H PRN 09/14/19 10/17/19 10/16/19 16:00 History [ProAir HFA Inhaler] ALBUTEROL NEB's [Proventil 0.083% 2.5 mg IH QID 09/14/19 10/17/19 Unknown History NEBS] Fluticasone/Vilanterol [Breo 1 each IH QDAY 09/14/19 10/17/19 Unknown History Ellipta 200-25 Mcg INH] Ipratropium [Atrovent NEB] 0.5 mg IH TID 09/14/19 10/17/19 10/16/19 18:00 History Mepolizumab 100 mg SUB-Q QMONTH 10/17/19 10/17/19 10/05/19 History Montelukast [Singulair] 1 mg PO QPM 10/17/19 10/17/19 Unknown History predniSONE [Deltasone] 1 tab PO DAILY 10/17/19 10/17/19 10/16/19 11:00 History Prednisone [predniSONE 5 mg (6-Day 5 mg PO .TAPER #1 tab.ds.pk 10/18/19 Unknown Rx Pack, 21 Tabs)] amLODIPine 5 mg PO DAILY #30 tab 10/18/19 Unknown Rx Review of Systems ROS: Stated complaint: ASTHMA/SOB Other details as noted in HPI Comment: All other systems reviewed and negative Constitutional: denies: chills, fever Eyes: denies: eye pain, eye discharge, vision change ENT: denies: ear pain, throat pain Respiratory: shortness of breath. denies: cough, wheezing Cardiovascular: denies: chest pain, palpitations Endocrine: no symptoms reported Gastrointestinal: denies: abdominal pain, nausea, diarrhea Genitourinary: denies: urgency, dysuria, discharge Musculoskeletal: denies: back pain, joint swelling, arthralgia Skin: denies: rash, lesions Neurological: denies: headache, weakness, paresthesias Psychiatric: denies: anxiety, depression Hematological/Lymphatic: denies: easy bleeding, easy bruising Medications and Allergies Allergies Allergy/AdvReac Type Severity Reaction Status Date / Time wheat Allergy Unknown Verified 11/11/19 13:04 Home Medications Medication Instructions Recorded Confirmed Last Taken Type raNITIdine HCl [Zantac] 150 mg PO BID #60 tablet 03/21/17 10/17/19 10/16/19 1 0:00 Rx ALBUTEROL Inhaler (OR & NICU) 2 puff IH Q4H PRN 09/14/19 10/17/19 10/16/19 16:00 History [ProAir HFA Inhaler] ALBUTEROL NEB's [Proventil 0.083% 2.5 mg IH QID 09/14/19 10/17/19 Unknown History NEBS] Fluticasone/Vilanterol [Breo 1 each IH QDAY 09/14/19 10/17/19 Unknown History Ellipta 200-25 Mcg INH] Ipratropium [Atrovent NEB] 0.5 mg IH TID 09/14/19 10/17/19 10/16/19 18:00 History Mepolizumab 100 mg SUB-Q QMONTH 10/17/19 10/17/19 10/05/19 History Montelukast [Singulair] 1 mg PO QPM 10/17/19 10/17/19 Unknown History predniSONE [Deltasone] 1 tab PO DAILY 10/17/19 10/17/19 10/16/19 11:00 History Prednisone [predniSONE 5 mg (6-Day 5 mg PO .TAPER #1 tab.ds.pk 10/18/19 Unknown Rx Pack, 21 Tabs)] amLODIPine 5 mg PO DAILY #30 tab 10/18/19 Unknown Rx Active Meds: Active Medications Acetaminophen (Tylenol) 650 mg PO Q4H PRN PRN Reason: Pain MILD(1-3)/Fever >100.5/BOOKER Acetaminophen (Tylenol) 650 mg PO Q4H PRN PRN Reason: Pain MILD(1-3)/Fever >100.5/BOOKER Albuterol/Ipratropium (Duoneb *Not For Prn Use*) 1 ampul IH Q3H PRN PRN Reason: Wheezing Albuterol/Ipratropium (Duoneb *Not For Prn Use*) 1 ampul IH QIDRT JOSE D Albuterol/Ipratropium (Duoneb *Not For Prn Use*) 1 ampul IH Q3H PRN PRN Reason: Wheezing Albuterol/Ipratropium (Duoneb *Not For Prn Use*) 1 ampul IH QIDRT JOSE D Amlodipine Besylate (Amlodipine) 5 mg PO DAILY JOSE D Famotidine (Pepcid) 20 mg IV BID JOSE D Hydromorphone HCl (Dilaudid) 0.5 mg IV Q3H PRN PRN Reason: Pain , Severe (7-10) Levofloxacin/Dextrose (Levaquin 750mg/150ml) 750 mg in 150 mls @ 100 mls/hr IV Q24HR JOSE D; Protocol Sodium Chloride (Nacl 0.9% 1000 Ml) 1,000 mls @ 75 mls/hr IV DIRECT JOSE D Stop: 11/13/19 06:00 Methylprednisolone Sodium Succinate (Solu-Medrol) 80 mg IV Q8HR JSOE D Metoclopramide HCl (Reglan) 10 mg IV Q6H PRN PRN Reason: Nausea And Vomiting Miscellaneous Medication (Fluticasone/Vilanterol [Breo Ellipta 200-25 Mcg Inh]) 1 each IH QDAY JOSE D Miscellaneous Medication (Ranitidine Hcl [Zantac]) 150 mg PO BID JOSE D Montelukast Sodium (Singulair) 1 mg PO QPM JOSE D Ondansetron HCl (Zofran) 4 mg IV Q8H PRN PRN Reason: Nausea And Vomiting Ondansetron HCl (Zofran) 4 mg IV Q8H PRN PRN Reason: Nausea And Vomiting Oxycodone/Acetaminophen (Percocet 5/325) 1 tab PO Q6H PRN PRN Reason: Pain, Moderate (4-6) Sodium Chloride (Sodium Chloride Flush Syringe 10 Ml) 10 ml IV BID JOSE D Sodium Chloride (Sodium Chloride Flush Syringe 10 Ml) 10 ml IV PRN PRN PRN Reason: LINE FLUSH Sodium Chloride (Sodium Chloride Flush Syringe 10 Ml) 10 ml IV BID JOSE D Sodium Chloride (Sodium Chloride Flush Syringe 10 Ml) 10 ml IV PRN PRN PRN Reason: LINE FLUSH Exam - Constitutional Vitals: Temp Pulse Resp BP Pulse Ox 99.9 F H 120 H 23 131/65 95 11/11/19 19:29 11/11/19 21:15 11/11/19 22:31 11/11/19 22:31 11/11/19 22:31 General appearance: Present: mild distress, well-nourished - EENT Eyes: Present: PERRL ENT: hearing intact, clear oral mucosa - Neck Neck: Present: supple, normal ROM - Respiratory Respiratory effort: normal Respiratory: bilateral: CTA, rhonchi, wheezing - Cardiovascular Heart rate: 78 Rhythm: regular Heart Sounds: Present: S1 & S2. Absent: rub, click - Extremities Extremities: no ischemia, pulses intact, pulses symmetrical, No edema Peripheral Pulses: within normal limits - Abdominal General gastrointestinal: Present: soft, non-tender, non-distended, normal bowel sounds Female genitourinary: Present: normal - Rectal Rectal Exam: deferred - Integumentary Integumentary: Present: clear, warm, dry - Musculoskeletal Musculoskeletal: gait normal, strength equal bilaterally - Psychiatric Psychiatric: appropriate mood/affect, intact judgment & insight - Neurologic Neurologic: CNII-XII intact, moves all extremities - Allied Health Allied health notes reviewed: nursing, case management Results - Labs CBC & Chem 7: 11/11/19 19:19 11/11/19 19:19 Labs: Laboratory Last Values WBC 7.6 K/mm3 (4.5-11.0) 11/11/19 19:19 RBC 4.52 M/mm3 (3.65-5.03) 11/11/19 19:19 Hgb 12.3 gm/dl (10.1-14.3) 11/11/19 19:19 Hct 38.9 % (30.3-42.9) 11/11/19 19:19 MCV 86 fl (79-97) 11/11/19 19:19 MCH 27 pg (28-32) L 11/11/19 19:19 MCHC 32 % (30-34) 11/11/19 19:19 RDW 13.8 % (13.2-15.2) 11/11/19 19:19 Plt Count 240 K/mm3 (140-440) 11/11/19 19:19 Add Manual Diff Complete 11/11/19 19:19 Total Counted 100 11/11/19 19:19 Seg Neutrophils % Compliance Attorney 11/11/19 19:19 Seg Neuts % (Manual) 94.0 % (40.0-70.0) H 11/11/19 19:19 Band Neutrophils % 0 % 11/11/19 19:19 Lymphocytes % (Manual) 4.0 % (13.4-35.0) L 11/11/19 19:19 Reactive Lymphs % (Man) 0 % 11/11/19 19:19 Monocytes % (Manual) 2.0 % (0.0-7.3) 11/11/19 19:19 Eosinophils % (Manual) 0 % (0.0-4.3) 11/11/19 19:19 Basophils % (Manual) 0 % (0.0-1.8) 11/11/19 19:19 Metamyelocytes % 0 % 11/11/19 19:19 Myelocytes % 0 % 11/11/19 19:19 Promyelocytes % 0 % 11/11/19 19:19 Blast Cells % 0 % 11/11/19 19:19 Nucleated RBC % Not Reportable 11/11/19 19:19 Seg Neutrophils # Man 7.1 K/mm3 (1.8-7.7) 11/11/19 19:19 Band Neutrophils # 0.0 K/mm3 11/11/19 19:19 Lymphocytes # (Manual) 0.3 K/mm3 (1.2-5.4) L 11/11/19 19:19 Abs React Lymphs (Man) 0.0 K/mm3 11/11/19 19:19 Monocytes # (Manual) 0.2 K/mm3 (0.0-0.8) 11/11/19 19:19 Eosinophils # (Manual) 0.0 K/mm3 (0.0-0.4) 11/11/19 19:19 Basophils # (Manual) 0.0 K/mm3 (0.0-0.1) 11/11/19 19:19 Metamyelocytes # 0.0 K/mm3 11/11/19 19:19 Myelocytes # 0.0 K/mm3 11/11/19 19:19 Promyelocytes # 0.0 K/mm3 11/11/19 19:19 Blast Cells # 0.0 K/mm3 11/11/19 19:19 WBC Morphology Not Reportable 11/11/19 19:19 Hypersegmented Neuts Not Reportable 11/11/19 19:19 Hyposegmented Neuts Not Reportable 11/11/19 19:19 Hypogranular Neuts Not Reportable 11/11/19 19:19 Smudge Cells Not Reportable 11/11/19 19:19 Toxic Granulation Not Reportable 11/11/19 19:19 Toxic Vacuolation Not Reportable 11/11/19 19:19 Dohle Bodies Not Reportable 11/11/19 19:19 Pelger-Huet Anomaly Not Reportable 11/11/19 19:19 Elvin Rods Not Reportable 11/11/19 19:19 Platelet Estimate Consistent w auto 11/11/19 19:19 Clumped Platelets Not Reportable 11/11/19 19:19 Plt Clumps, EDTA Not Reportable 11/11/19 19:19 Large Platelets Not Reportable 11/11/19 19:19 Giant Platelets Not Reportable 11/11/19 19:19 Platelet Satelliting Not Reportable 11/11/19 19:19 Plt Morphology Comment Not Reportable 11/11/19 19:19 RBC Morphology Normal 11/11/19 19:19 Dimorphic RBCs Not Reportable 11/11/19 19:19 Polychromasia Not Reportable 11/11/19 19:19 Hypochromasia Not Reportable 11/11/19 19:19 Poikilocytosis Not Reportable 11/11/19 19:19 Anisocytosis Not Reportable 11/11/19 19:19 Microcytosis Not Reportable 11/11/19 19:19 Macrocytosis Not Reportable 11/11/19 19:19 Spherocytes Not Reportable 11/11/19 19:19 Pappenheimer Bodies Not Reportable 11/11/19 19:19 Sickle Cells Not Reportable 11/11/19 19:19 Target Cells Not Reportable 11/11/19 19:19 Tear Drop Cells Not Reportable 11/11/19 19:19 Ovalocytes Not Reportable 11/11/19 19:19 Helmet Cells Not Reportable 11/11/19 19:19 [place] Bodies Not Reportable 11/11/19 19:19 [place] Rings Not Reportable 11/11/19 19:19 [place] Cells Not Reportable 11/11/19 19:19 Bite Cells Not Reportable 11/11/19 19:19 Crenated Cell Not Reportable 11/11/19 19:19 Elliptocytes Not Reportable 11/11/19 19:19 Acanthocytes (Spur) Not Reportable 11/11/19 19:19 Rouleaux Not Reportable 11/11/19 19:19 Hemoglobin C Crystals Not Reportable 11/11/19 19:19 Schistocytes Not Reportable 11/11/19 19:19 Malaria parasites Not Reportable 11/11/19 19:19 Sean Bodies Not Reportable 11/11/19 19:19 Hem Pathologist Commnt No 11/11/19 19:19 Sodium 134 mmol/L (137-145) L 11/11/19 19:19 Potassium 3.6 mmol/L (3.6-5.0) 11/11/19 19:19 Chloride 99.1 mmol/L (98-107) 11/11/19 19:19 Carbon Dioxide 17 mmol/L (22-30) L 11/11/19 19:19 Anion Gap 22 mmol/L 11/11/19 19:19 BUN 7 mg/dL (7-17) 11/11/19 19:19 Creatinine 0.9 mg/dL (0.7-1.2) 11/11/19 19:19 Estimated GFR > 60 ml/min 11/11/19 19:19 BUN/Creatinine Ratio 8 % 11/11/19 19:19 Glucose 202 mg/dL (65-100) H 11/11/19 19:19 Calcium 8.9 mg/dL (8.4-10.2) 11/11/19 19:19 Short CBC 11/11/19 Range/Units 19:19 WBC 7.6 (4.5-11.0) K/mm3 Hgb 12.3 (10.1-14.3) gm/dl Hct 38.9 (30.3-42.9) % Plt Count 240 (140-440) K/mm3 [facility] 11/11/19 19:19 Sodium 134 L Potassium 3.6 Chloride 99.1 Carbon Dioxide 17 L BUN 7 Creatinine 0.9 Glucose 202 H Calcium 8.9 - Imaging and Cardiology Chest x-ray: report reviewed (No acute findings) Assessment and Plan Advance Directives: Yes (Full code) VTE prophylaxis?: Chemical Plan of care discussed with patient/family: Yes - Patient Problems (1) Acute respiratory failure with hypoxia Current Visit: Yes Status: Acute Plan to address problem: Patient initiated on bronchodilators, IV Solu-Medrol and IV Levaquin BiPAP if necessary (2) Asthma exacerbation Current Visit: Yes Status: Acute Qualifiers: Asthma severity: moderate Plan to address problem: Patient initiated on IV Levaquin, IV Solu-Medrol and duo nebs [id number] and as needed Intubation if necessary BiPAP if necessary Continue Singulair and biologicals (3) Hypertension Current Visit: Yes Status: Chronic Qualifiers: Hypertension type: essential hypertension Qualified Code(s): I10 - Ess ential (primary) hypertension Plan to address problem: Continue antihypertensives (4) GERD (gastroesophageal reflux disease) Current Visit: Yes Status: Chronic Qualifiers: Esophagitis presence: without esophagitis Qualified Code(s): K21.9 - Reyna ro-esophageal reflux disease without esophagitis Plan to address problem: Continue ranitidine (5) DVT prophylaxis Current Visit: Yes Status: Acute Plan to address problem: On heparin and GI prophylaxis
[2019-11-12] MEDS ORDERED: ALBUTEROL 2.5 MG/3 ML NEBU IH PRN (00:46)
[2019-11-12] MEDS: HEPARIN 5,000 UNIT/1 ML VIAL SUB-Q SCH ×3 (00:49→22:02)
[2019-11-12] MEDS ORDERED: methylPREDNISolone Sod Succinate 125 MG/2 ML INJ IV SCH (01:00)
[2019-11-12] MEDS: methylPREDNISolone Sod Succinate 125 MG/2 ML INJ IV SCH ×3 (02:36→19:02)
[2019-11-12] MEDS: BUDESONIDE 0.5 MG/2 ML NEBU IH SCH ×2 (07:47→21:05)
[2019-11-12] MEDS: ARFORMOTEROL 15 MCG/2 ML NEBU IH SCH ×2 (07:47→21:05)
[2019-11-12] MEDS: IPRATROPIUM/ALBUTEROL SULFATE 3 ML AMPUL.NEB IH SCH ×4 (07:47→21:05)
[2019-11-12] MEDS ORDERED: IPRATROPIUM/ALBUTEROL SULFATE 3 ML AMPUL.NEB IH SCH (08:00)
[2019-11-12] MEDS ORDERED: NON-FORMULARY EACH (Fluticasone/Vilanterol [Breo Ellipta 200-25 Mcg Inh] 1 EACH) IH SCH (10:00)
[2019-11-12] MEDS ORDERED: FAMOTIDINE 20 MG/2 ML INJ IV SCH (10:00)
[2019-11-12] MEDS: amLODIPine 5 MG TAB PO SCH (10:16)
--- NOTE | 2019-11-12 15:46 | Consultation ---
History of Present Illness Consult date: 11/12/19 Requesting physician: CORINE RAO Reason for consult: asthma History of present illness: 49 y/o female well known to me admitted with asthma exacerbation. Past History Past Medical History: GERD, other (asthma) Medications and Allergies Allergies Allergy/AdvReac Type Severity Reaction Status Date / Time wheat Allergy Unknown Verified 11/11/19 13:04 Home Medications Medication Instructions Recorded Confirmed Last Taken Type raNITIdine HCl [Zantac] 150 mg PO BID #60 tablet 03/21/17 10/17/19 10/16/19 10:00 Rx ALBUTEROL Inhaler (OR & NICU) 2 puff IH Q4H PRN 09/14/19 10/17/19 10/16/19 16:00 History [ProAir HFA Inhaler] ALBUTEROL NEB's [Proventil 0.083% 2.5 mg IH QID 09/14/19 10/17/19 Unknown History NEBS] Fluticasone/Vilanterol [Breo 1 each IH QDAY 09/14/19 10/17/19 Unknown History Ellipta 200-25 Mcg INH] Ipratropium [Atrovent NEB] 0.5 mg IH TID 09/14/19 10/17/19 10/16/19 18:00 History Mepolizumab 100 mg SUB-Q QMONTH 10/17/19 10/17/19 10/05/19 History Montelukast [Singulair] 1 mg PO QPM 10/17/19 10/17/19 Unknown History predniSONE [Deltasone] 1 tab PO DAILY 10/17/19 10/17/19 10/16/19 11:00 History Prednisone [predniSONE 5 mg (6-Day 5 mg PO .TAPER #1 tab.ds.pk 10/18/19 Unknown Rx Pack, 21 Tabs)] amLODIPine 5 mg PO DAILY #30 tab 10/18/19 Unknown Rx Active Meds: Active Medications Acetaminophen (Tylenol) 650 mg PO Q4H PRN PRN Reason: Pain MILD(1-3)/Fever >100.5/BOOKER Albuterol (Proventil) 2.5 mg IH Q3HRT PRN PRN Reason: Wheezing Albuterol/Ipratropium (Duoneb *Not For Prn Use*) 1 ampul IH QIDRT JOSE D Last Admin: 12/21/19 13:37 Dose: 1 ampul Documented by: Amlodipine Besylate (Amlodipine) 5 mg PO DAILY [facility] Last Admin: 11/12/19 10:16 Dose: 5 mg Documented by: Arformoterol Tartrate (Brovana Nebu) 15 mcg IH Q12HRT [facility] Last Admin: 11/12/19 07:47 Dose: 15 mcg Documented by: Budesonide (Pulmicort) 1 mg IH Q12HRT [facility] Last Admin: 11/12/19 07:47 Dose: 1 mg Documented by: Famotidine (Pepcid) 20 mg IV BID [facility] Last Admin: 11/12/19 10:16 Dose: 20 mg Documented by: Heparin Sodium (Porcine) (Heparin) 5,000 unit SUB-Q Q12HR [facility] Last Admin: 11/12/19 10:35 Dose: 5,000 unit Documented by: Hydromorphone HCl (Dilaudid) 0.5 mg IV Q3H PRN PRN Reason: Pain , Severe (7-10) Levofloxacin/Dextrose (Levaquin 750mg/150ml) 750 mg in 150 mls @ 100 mls/hr IV Q24HR [facility]; Protocol Last Admin: 11/12/19 10:17 Dose: 100 mls/hr Documented by: Sodium Chloride (Nacl 0.9% 1000 Ml) 1,000 mls @ 75 mls/hr IV DIRECT JOSE D Stop: 11/13/19 06:00 Methylprednisolone Sodium Succinate (Solu-Medrol) 60 mg IV Q8H [facility] Last Admin: 11/12/19 10:35 Dose: 60 mg Documented by: Metoclopramide HCl (Reglan) 10 mg IV Q6H PRN PRN Reason: Nausea And Vomiting Montelukast Sodium (Singulair) 1 mg PO QPM [facility] Ondansetron HCl (Zofran) 4 mg IV Q8H PRN PRN Reason: Nausea And Vomiting Oxycodone/Acetaminophen (Percocet 5/325) 1 tab PO Q6H PRN PRN Reason: Pain, Moderate (4-6) Sodium Chloride (Sodium Chloride Flush Syringe 10 Ml) 10 ml IV BID [facility] Last Admin: 11/12/19 10:19 Dose: 10 ml Documented by: Sodium Chloride (Sodium Chloride Flush Syringe 10 Ml) 10 ml IV PRN PRN PRN Reason: LINE FLUSH Review of Systems All systems: negative Physical Examination Vital signs: Vital Signs Temp Pulse Resp BP Pulse Ox 99.6 F 130 H 22 180/83 94 11/11/19 13:08 11/11/19 13:08 11/11/19 13:08 11/11/19 13:08 11/11/19 13:08 Results - Laboratory Findings CBC and BMP: 11/11/19 19:19 11/11/19 19:19 Abnormal lab findings: Abnormal Labs 11/11/19 11/11/19 19:19 19:19 MCH 27 L Seg Neuts % (Manual) 94.0 H Lymphocytes % (Manual) 4.0 L Lymphocytes # (Manual) 0.3 L Sodium 134 L Carbon Dioxide 17 L Glucose 202 H - Diagnostic Findings Chest x-ray: image reviewed Assessment and Plan 49 y/o, obese female admitted with asthma exacerbation. 1. Change H2 melany to PPI 2. Will stop duoneb therapy and continue BID pulmicort and Brovana with PRN albuterol 3. Can change steroids to 40q8 starting tomorrow 4. HOpeful discharge in the next 24-48 hours.
--- NOTE | 2019-11-12 16:17 | Progress Note ---
Assessment and Plan Assessment and plan: -- Acute respiratory failure with hypoxia Current Visit: Yes Status: Acute Due to acute exacerbation of bronchial asthma Patient in mild distress, using accessory muscles Oxygen titrate O2 sats to more than 90% , bronchodilators , IV Solu-Medrol Empiric IV antibiotics , supportive care BiPAP if necessary --Acute exacerbation of bronchial asthma. Current Visit: Yes Status: Acute Nebulizers IV Levaquin, IV Solu-Medrol and duo nebs. inhalation steroids BiPAP if necessary,Intubation if no response Oxygen titrate O2 sats to more than 90% Evaluate for home oxygen at discharge -- Hypertension Current Visit: Yes Status: Chronic Continue antihypertensives Closely monitor blood pressures adjust as needed PRN antihypertensives -- GERD (gastroesophageal reflux disease) Current Visit: Yes Status: Chronic Continue ranitidine, supportive care -- DVT prophylaxis Current Visit: Yes Status: Acute On heparin and GI prophylaxis Closely monitor adjust management as needed Possible discharge in 1 to 2 days if stable Pulmonary evaluation and recommendation noted and appreciated History Interval history: Patient seen and examined medical records reviewed Admitted with acute hypoxic respiratory failure secondary to bronchial asthma exacerbation Patient continues to be in acute respiratory distress Using accessory muscles, and severe wheezing Patient denies any chest pain No headache or dizziness Vital signs noted, mild distress Hospitalist Physical - Constitutional Vitals: Temp Pulse Resp BP Pulse Ox 98.3 F 103 H 20 139/77 99 11/12/19 07:44 11/12/19 14:03 11/12/19 14:03 11/12/19 10:16 11/12/19 07:50 General appearance: Present: mild distress, well-nourished, other (Using accessory muscles) - EENT Eyes: Present: PERRL, EOM intact - Neck Neck: Present: supple, normal ROM - Respiratory Respiratory effort: normal Respiratory: bilateral: diminished, wheezing, negative: rales, rhonchi - Cardiovascular Rhythm: regular Heart Sounds: Present: S1 & S2 - Extremities Extremities: no ischemia, No edema - Abdominal General gastrointestinal: soft, non-tender, non-distended, normal bowel sounds - Integumentary Integumentary: Present: clear, warm - Psychiatric Psychiatric: appropriate mood/affect, cooperative - Neurologic Neurologic: CNII-XII intact, moves all extremities Results - Labs CBC & Chem 7: 11/11/19 19:19 11/11/19 19:19 Labs: Laboratory Last Values WBC 7.6 K/mm3 (4.5-11.0) 11/11/19 19:19 RBC 4.52 M/mm3 (3.65-5.03) 11/11/19 19:19 Hgb 12.3 gm/dl (10.1-14.3) 11/11/19 19:19 Hct 38.9 % (30.3-42.9) 11/11/19 19:19 MCV 86 fl (79-97) 11/11/19 19:19 MCH 27 pg (28-32) L 11/11/19 19:19 MCHC 32 % (30-34) 11/11/19 19:19 RDW 13.8 % (13.2-15.2) 11/11/19 19:19 Plt Count 240 K/mm3 (140-440) 11/11/19 19:19 Add Manual Diff Complete 11/11/19 19:19 Total Counted 100 11/11/19 19:19 Seg Neutrophils % Glass Driller 11/11/19 19:19 Seg Neuts % (Manual) 94.0 % (40.0-70.0) H 11/11/19 19:19 Band Neutrophils % 0 % 11/11/19 19:19 Lymphocytes % (Manual) 4.0 % (13.4-35.0) L 11/11/19 19:19 Reactive Lymphs % (Man) 0 % 11/11/19 19:19 Monocytes % (Manual) 2.0 % (0.0-7.3) 11/11/19 19:19 Eosinophils % (Manual) 0 % (0.0-4.3) 11/11/19 19:19 Basophils % (Manual) 0 % (0.0-1.8) 11/11/19 19:19 Metamyelocytes % 0 % 11/11/19 19:19 Myelocytes % 0 % 11/11/19 19:19 Promyelocytes % 0 % 11/11/19 19:19 Blast Cells % 0 % 11/11/19 19:19 Nucleated RBC % Not Reportable 11/11/19 19:19 Seg Neutrophils # Man 7.1 K/mm3 (1.8-7.7) 11/11/19 19:19 Band Neutrophils # 0.0 K/mm3 12/20/19 19:19 Lymphocytes # (Manual) 0.3 K/mm3 (1.2-5.4) L 11/11/19 19:19 Abs React Lymphs (Man) 0.0 K/mm3 11/11/19 19:19 Monocytes # (Manual) 0.2 K/mm3 (0.0-0.8) 11/11/19 19:19 Eosinophils # (Manual) 0.0 K/mm3 (0.0-0.4) 11/11/19 19:19 Basophils # (Manual) 0.0 K/mm3 (0.0-0.1) 11/11/19 19:19 Metamyelocytes # 0.0 K/mm3 11/11/19 19:19 Myelocytes # 0.0 K/mm3 11/11/19 19:19 Promyelocytes # 0.0 K/mm3 11/11/19 19:19 Blast Cells # 0.0 K/mm3 11/11/19 19:19 WBC Morphology Not Reportable 11/11/19 19:19 Hypersegmented Neuts Not Reportable 11/11/19 19:19 Hyposegmented Neuts Not Reportable 11/11/19 19:19 Hypogranular Neuts Not Reportable 11/11/19 19:19 Smudge Cells Not Reportable 11/11/19 19:19 Toxic Granulation Not Reportable 11/11/19 19:19 Toxic Vacuolation Not Reportable 11/11/19 19:19 Dohle Bodies Not Reportable 11/11/19 19:19 Pelger-Huet Anomaly Not Reportable 11/11/19 19:19 Elvin Rods Not Reportable 11/11/19 19:19 Platelet Estimate Consistent w auto 11/11/19 19:19 Clumped Platelets Not Reportable 11/11/19 19:19 Plt Clumps, EDTA Not Reportable 11/11/19 19:19 Large Platelets Not Reportable 11/11/19 19:19 Giant Platelets Not Reportable 11/11/19 19:19 Platelet Satelliting Not Reportable 11/11/19 19:19 Plt Morphology Comment Not Reportable 11/11/19 19:19 RBC Morphology Normal 11/11/19 19:19 Dimorphic RBCs Not Reportable 11/11/19 19:19 Polychromasia Not Reportable 11/11/19 19:19 Hypochromasia Not Reportable 11/11/19 19:19 Poikilocytosis Not Reportable 11/11/19 19:19 Anisocytosis Not Reportable 11/11/19 19:19 Microcytosis Not Reportable 11/11/19 19:19 Macrocytosis Not Reportable 11/11/19 19:19 Spherocytes Not Reportable 11/11/19 19:19 Pappenheimer Bodies Not Reportable 11/11/19 19:19 Sickle Cells Not Reportable 11/11/19 19:19 Target Cells Not Reportable 11/11/19 19:19 Tear Drop Cells Not Reportable 11/11/19 19:19 Ovalocytes Not Reportable 11/11/19 19:19 Helmet Cells Not Reportable 11/11/19 19:19 Buckner-Clemmons Bodies Not Reportable 11/11/19 19:19 Loda Rings Not Reportable 11/11/19 19:19 Yusra Cells Not Reportable 11/11/19 19:19 Bite Cells Not Reportable 11/11/19 19:19 Crenated Cell Not Reportable 11/11/19 19:19 Elliptocytes Not Reportable 11/11/19 19:19 Acanthocytes (Spur) Not Reportable 11/11/19 19:19 Rouleaux Not Reportable 11/11/19 19:19 Hemoglobin C Crystals Not Reportable 11/11/19 19:19 Schistocytes Not Reportable 11/11/19 19:19 Malaria parasites Not Reportable 11/11/19 19:19 Sean Bodies Not Reportable 11/11/19 19:19 Hem Pathologist Commnt No 11/11/19 19:19 Sodium 134 mmol/L (137-145) L 11/11/19 19:19 Potassium 3.6 mmol/L (3.6-5.0) 11/11/19 19:19 Chloride 99.1 mmol/L (98-107) 11/11/19 19:19 Carbon Dioxide 17 mmol/L (22-30) L 11/11/19 19:19 Anion Gap 22 mmol/L 11/11/19 19:19 BUN 7 mg/dL (7-17) 11/11/19 19:19 Creatinine 0.9 mg/dL (0.7-1.2) 11/11/19 19:19 Estimated GFR > 60 ml/min 11/11/19 19:19 BUN/Creatinine Ratio 8 % 12/20/19 19:19 Glucose 202 mg/dL (65-100) H 11/11/19 19:19 Hemoglobin A1c 5.5 % (4-6) 11/12/19 00:17 Calcium 8.9 mg/dL (8.4-10.2) 11/11/19 19:19 Active Medications - Current Medications Current Medications: Generic Name Dose Route Start Last Admin Trade Name Freq PRN Reason Stop Dose Admin Acetaminophen 650 mg 11/12/19 00:04 Tylenol PO Q4H PRN Pain MILD(1-3)/Fever >100.5/BOOKER Albuterol 2.5 mg 11/12/19 00:46 Proventil IH Q3HRT PRN Wheezing Albuterol/Ipratropium 1 ampul 11/12/19 08:00 11/12/19 13:37 Duoneb *Not For Prn Use* IH 1 ampul QIDRT JOSE D Administration Amlodipine Besylate 5 mg 11/12/19 10:00 11/12/19 10:16 Amlodipine PO 5 mg DAILY JOSE D Administration Arformoterol Tartrate 15 mcg 11/12/19 08:00 11/12/19 07:47 Brovana Nebu IH 15 mcg Q12HRT JOSE D Administration Budesonide 1 mg 11/12/19 08:00 11/12/19 07:47 Pulmicort IH 1 mg Q12HRT JOSE D Administration Heparin Sodium (Porcine) 5,000 unit 11/12/19 00:30 11/12/19 10:35 Heparin SUB-Q 5,000 unit Q12HR JOSE D Administration Hydromorphone HCl 0.5 mg 11/12/19 00:04 Dilaudid IV Q3H PRN Pain , Severe (7-10) Levofloxacin/Dextrose 750 mg in 150 mls @ 100 mls/hr 11/12/19 10:00 11/12/19 10:17 Levaquin 750mg/150ml IV 100 mls/hr Q24HR JOSE D Administration Protocol Sodium Chloride 1,000 mls @ 75 mls/hr 11/12/19 00:15 Nacl 0.9% 1000 Ml IV 11/13/19 06:00 DIRECT JOSE D Methylprednisolone Sodium Succinate 60 mg 11/12/19 02:00 11/12/19 10:35 Solu-Medrol IV 60 mg Q8H JOSE D Administration Metoclopramide HCl 10 mg 11/12/19 00:04 Reglan IV Q6H PRN Nausea And Vomiting Montelukast Sodium 1 mg 11/12/19 18:00 Singulair PO QPM JOSE D Ondansetron HCl 4 mg 11/12/19 00:04 Zofran IV Q8H PRN Nausea And Vomiting Oxycodone/Acetaminophen 1 tab 11/12/19 00:04 Percocet 5/325 PO Q6H PRN Pain, Moderate (4-6) Pantoprazole Sodium 40 mg 11/12/19 22:00 Protonix PO BID JOSE D Sodium Chloride 10 ml 11/12/19 10:00 11/12/19 10:19 Sodium Chloride Flush Syringe 10 Ml IV 10 ml BID JOSE D Administration Sodium Chloride 10 ml 11/12/19 00:04 Sodium Chloride Flush Syringe 10 Ml IV PRN PRN LINE FLUSH
[2019-11-12] MEDS ORDERED: MONTELUKAST 10 MG TAB PO SCH (18:00)
[2019-11-12] MEDS: PANTOPRAZOLE 40 MG TAB PO SCH (22:02)
[2019-11-13] MEDS: methylPREDNISolone Sod Succinate 125 MG/2 ML INJ IV SCH ×2 (02:34→10:48)
[2019-11-13 05:21] VITALS: BP 116/64
[2019-11-13] MEDS: BUDESONIDE 0.5 MG/2 ML NEBU IH SCH (08:33)
[2019-11-13] MEDS: IPRATROPIUM/ALBUTEROL SULFATE 3 ML AMPUL.NEB IH SCH ×2 (08:33→14:09)
[2019-11-13] MEDS: ARFORMOTEROL 15 MCG/2 ML NEBU IH SCH (08:34)
[2019-11-13 09:25] LABS: Hematocrit 39.8 % (30.3-42.9); Hemoglobin 12.6 gm/dl (10.1-14.3); Mean Corpuscular HGB Conc 32 % (30-34); Mean Corpuscular Volume 86 fl (79-97); Platelet Count 264 K/mm3 (140-440); Red Blood Count 4.62 M/mm3 (3.65-5.03); Red Cell Distribution Width 14.2 % (13.2-15.2)
[2019-11-13 09:36] LABS: Basophils # (Auto) 0.1 K/mm3 (0.0-0.1); Monocytes # (Auto) 0.9 K/mm3 (0.0-0.8); Monocytes % (Auto) 5.3 % (0.0-7.3)
[2019-11-13 09:59] LABS: Alanine Aminotransferase 14 units/L (7-56); Albumin 3.5 g/dL (3.9-5); BUN/Creatinine Ratio 18; Blood Urea Nitrogen 16 mg/dL (7-17); Calcium 9.2 mg/dL (8.4-10.2); Hemolysis Index 22
[2019-11-13] MEDS: PANTOPRAZOLE 40 MG TAB PO SCH (10:48)
[2019-11-13] MEDS: HEPARIN 5,000 UNIT/1 ML VIAL SUB-Q SCH (10:48)
[2019-11-13] MEDS: amLODIPine 5 MG TAB PO SCH (10:48)
--- NOTE | 2019-11-13 11:34 | Discharge Summary ---
Providers - Providers Date of Admission: 11/11/19 22:54 Date of discharge: 11/13/19 Attending physician: CORINE RAO 11/12/19 00:04 Consult to Physician [CONS] Routine Comment: Consulting Provider: TERRY AMBRIZ Physician Instructions: Reason For Exam: Asthma exacerbation Primary care physician: JUAN JOSÉ MCGILL Hospitalization Reason for admission: Worsening shortness of breath Condition: Fair Pertinent studies: CXR Hospital course: 49-year-old -[place] female with history of severe asthma on biologicals and Singulair comes in for increasing wheezing since morning. Not responding to nebulizer treatment at home. Patient is also on oral prednisone and not responding. Continues to have severe wheezing. Cough productive of mucoid sputum. Has low-grade fever. No exacerbating or relieving factors. No recent travel. Initial workup consistent with acute exacerbation of bronchial asthma. Management with oxygen titrated O2 sats to more than 90% nebulizers, IV steroids, IV antibiotics Tapering dose of steroids. Patient's symptoms significantly improved today's comfortable no new complaints vital signs stable physical examination transient discharge is unremarkable Patient advised to comply with medications diet and follow-up visits Verbalize understanding, Stable at discharge, Discharge Diagnosis: -- Acute respiratory failure with hypoxia Current Visit: Yes Status: Acute Due to acute exacerbation of bronchial asthma Patient in mild distress, using accessory muscles Oxygen titrate O2 sats to more than 90% , bronchodilators , IV Solu-Medrol Empiric IV antibiotics , supportive care BiPAP if necessary --Acute exacerbation of bronchial asthma. Current Visit: Yes Status: Acute Nebulizers IV Levaquin, IV Solu-Medrol and duo nebs. inhalation steroids BiPAP if necessary,Intubation if no response Oxygen titrate O2 sats to more than 90% Evaluate for home oxygen at discharge -- Hypertension Current Visit: Yes Status: Chronic Continue antihypertensives Closely monitor blood pressures adjust as needed PRN antihypertensives -- GERD (gastroesophageal reflux disease) Current Visit: Yes Status: Chronic Continue ranitidine, supportive care -- DVT prophylaxis Current Visit: Yes Status: Acute On heparin and GI prophylaxis Stable at discharge Disposition: -01 TO HOME OR SELFCARE Time spent for discharge: 32 min Core Measure Documentation - Palliative Care Palliative Care/ Comfort Measures: Not Applicable - Core Measures Any of the following diagnoses?: none Exam - Constitutional Vitals: Temp Pulse Resp BP Pulse Ox 98.0 F 101 H 20 116/64 97 11/13/19 04:50 11/13/19 08:34 11/13/19 08:34 11/13/19 04:50 11/13/19 08:35 General appearance: Present: no acute distress, well-nourished - EENT Eyes: Present: PERRL, EOM intact - Neck Neck: Present: supple, normal ROM - Respiratory Respiratory effort: normal Respiratory: bilateral: diminished, negative: rales, rhonchi, wheezing - Cardiovascular Rhythm: regular Heart Sounds: Present: S1 & S2 - Extremities Extremities: no ischemia, No edema - Abdominal General gastrointestinal: Present: soft, non-tender, non-distended, normal bowel sounds - Integumentary Integumentary: Present: clear, warm - Musculoskeletal Musculoskeletal: strength equal bilaterally - Psychiatric Psychiatric: appropriate mood/affect, cooperative - Neurologic Neurologic: moves all extremities Plan Activity: advance as tolerated Diet: regular Additional Instructions: patient's roomair O2 sats between 92 and 94%, no indication for home oxygen. Advised to comply with medications dieting follow- up visits Follow up with: JUAN JOSÉ MCGILL MD [Primary Care Provider] - 3-5 Days Prescriptions: Montelukast [Singulair] 1 mg PO QPM #30
[2019-11-13 12:20] LABS: Total Cells Counted 100
[2019-11-13 12:21] LABS: Basophils % (Manual) 0 % (0.0-1.8); Eosinophils % (Manual) 0 % (0.0-4.3); Large Platelets Few; Platelet Estimate Consistent w Auto; RBC Morphology Normal
--- NOTE | 2019-11-13 12:43 | Progress Note ---
Assessment and Plan 49 y/o, obese female admitted with asthma exacerbation. 1. Suggest Discharging on BID PPI 2. Resume home asthma regimen 3. Steroid taper over 2 weeks time. 4. No objection to discharge today. Subjective Date of service: 11/13/19 Interval history: No acute events. Being discharged today. Objective Vital Signs - 12hr 11/13/19 11/13/19 11/13/19 04:50 08:34 08:35 Temperature 98.0 F Pulse Rate 90 Pulse Rate [ 101 H Posterior Bilateral Throughout] Respiratory 18 Rate Respiratory 20 Rate [Posterior Bilateral Throughout] Blood Pressure 116/64 O2 Sat by Pulse 100 97 Oximetry 11/13/19 10:00 Temperature Pulse Rate 81 Pulse Rate [ Posterior Bilateral Throughout] Respiratory Rate Respiratory Rate [Posterior Bilateral Throughout] Blood Pressure O2 Sat by Pulse Oximetry CBC and BMP: 11/13/19 08:16 11/13/19 08:16 Abnormal lab findings: Abnormal Labs 11/11/19 11/11/19 11/13/19 19:19 19:19 08:16 WBC 16.5 H MCH 27 L 27 L [place] # 0.9 H Seg Neuts % (Manual) 94.0 H 96.0 H Lymphocytes % (Manual) 4.0 L 0 L Seg Neutrophils # 16.3 H Seg Neutrophils # Man 15.8 H Lymphocytes # (Manual) 0.3 L 0.0 L Sodium 134 L Carbon Dioxide 17 L Glucose 202 H Albumin 11/13/19 08:16 WBC MCH [place] # Seg Neuts % (Manual) Lymphocytes % (Manual) Seg Neutrophils # Seg Neutrophils # Man Lymphocytes # (Manual) Sodium Carbon Dioxide 20 L Glucose 149 H Albumin 3.5 L
== END 2019-11-13 15:49 | disposition home or self-care (01) | DRG 189 ==
LOC: ED 13:01 → OBSVTOIN 22:54 → 4A 22:54
PROVIDERS: ADMIT Internal Medicine; ATTEND Internal Medicine
DX: J96.01 Acute respiratory failure with hypoxia (principal); J45.901 Unspecified asthma with (acute) exacerbation; I10 Essential (primary) hypertension; K21.9 Gastro-esophageal reflux disease without esophagitis; Z79.899 Other long term (current) drug therapy; Z98.51 Tubal ligation status; Z82.49 Family history of ischemic heart disease and other diseases of the circulatory system
CPT/HCPCS: 36415; 71046; 80048; 80053; 83036; 85007; 85025; 94640; 94644; 94760; 96365; 96375; G0378; J1644; J1956; J2930; J3475; J7512

== ENCOUNTER 2019-11-14 21:56 | Inpatient (IN) | payer MEDICARE ==
[2019-11-14] MEDS ORDERED: methylPREDNISolone Sod Succinate 125 MG/2 ML INJ IV ONE (22:20)
[2019-11-14] MEDS ORDERED: ALBUTEROL 2.5 MG/3 ML NEBU IH ONE (22:20)
[2019-11-14] MEDS ORDERED: IPRATROPIUM 0.02% NEBU 2.5 ML IH ONE (22:20)
--- NOTE | 2019-11-14 22:20 | Event Note ---
ED Screening Note Date of service: 11/14/19 Time: 22:18 ED Screening Note: c/o cough, SOB, fever, body aches x 4 days admitted here 11/11/19 for the same denies hemoptysis This initial assessment/diagnostic orders/clinical plan/treatment(s) is/are subject to change based on patients health status, clinical progression and re- assessment by fellow clinical providers in the ED. Further treatment and workup at subsequent clinical providers discretion. Patient/guardian urged not to elope from the ED as their condition may be serious if not clinically assessed and managed. Initial orders include: neb labs CXR
[2019-11-14] MEDS ORDERED: ACETAMINOPHEN 500 MG TAB PO ONE (22:58)
--- NOTE | 2019-11-14 23:03 | Emergency Department Report ---
ED Shortness of Breath HPI - General Chief Complaint: Dyspnea/Respdistress Stated Complaint: DIFF BREATHING/WHEEZING Time Seen by Provider: 11/14/19 22:16 Source: patient Mode of arrival: Ambulatory Limitations: No Limitations - History of Present Illness Initial Comments: Patient is 49 years old female with history of hypertension and asthma. Patient had history of intubation before secondary to severe asthma. Patient discharged from the hospital yesterday after she was admitted for 2 days for asthma exacerbation. Patient presented today complaining of severe shortness of breath, wheezing and fever associated with his cough, productive with greenish sputum. MD Complaint: shortness of breath, cough, "asthma attack" -: This morning Known History Of: asthma Context: recent URI Treatments Prior to Arrival: none - Related Data Home Medications Medication Instructions Recorded Confirmed Last Taken ALBUTEROL Inhaler (OR & NICU) 2 puff IH Q4H PRN 09/14/19 10/17/19 10/16/19 16:00 [ProAir HFA Inhaler] ALBUTEROL NEB's [Proventil 0.083% 2.5 mg IH QID 09/14/19 10/17/19 Unknown NEBS] Fluticasone/Vilanterol [Breo 1 each IH QDAY 09/14/19 10/17/19 Unknown Ellipta 200-25 Mcg INH] Ipratropium [Atrovent NEB] 0.5 mg IH TID 09/14/19 10/17/19 10/16/19 18:00 Mepolizumab 100 mg SUB-Q QMONTH 10/17/19 10/17/19 10/05/19 predniSONE [Deltasone] 1 tab PO DAILY 10/17/19 10/17/19 10/16/19 11:00 Previous Rx's Medication Instructions Recorded Last Taken Type raNITIdine HCl [Zantac] 150 mg PO BID #60 tablet 03/21/17 10/16/19 10:00 Rx Prednisone [predniSONE 5 mg (6-Day 5 mg PO .TAPER #1 tab.ds.pk 10/18/19 Unknown Rx Pack, 21 Tabs)] amLODIPine 5 mg PO DAILY #30 tab 10/18/19 Unknown Rx Azithromycin [Zithromax Z-LEVAR] 0 mg PO DAILY #1 tab 11/13/19 Unknown Rx Benzonatate [Tessalon Perles] 100 mg PO Q8HR #30 capsule 11/13/19 Unknown Rx Montelukast [Singulair] 1 mg PO QPM #30 11/13/19 Unknown Rx Allergies Allergy/AdvReac Type Severity Reaction Status Date / Time wheat Allergy Unknown Verified 11/11/19 13:04 ED Review of Systems ROS: Stated complaint: DIFF BREATHING/WHEEZING Other details as noted in HPI Comment: All other systems reviewed and negative Constitutional: chills, fever Respiratory: cough, orthopnea, shortness of breath, SOB with exertion, SOB at rest, wheezing Cardiovascular: denies: chest pain, palpitations Gastrointestinal: denies: abdominal pain, nausea, vomiting Musculoskeletal: denies: back pain Neurological: denies: headache, weakness ED Past Medical Hx - Past Medical History Hx Hypertension: Yes (denies) Hx Heart Attack/AMI: No Hx Congestive Heart Failure: No Hx Diabetes: No Hx Deep Vein Thrombosis: No Hx Pulmonary Embolism: No Hx Asthma: Yes Hx COPD: No Hx Tuberculosis: No Hx HIV: No Additional medical history: (5) previous intubations due to asthma complications - Surgical History Hx Coronary Stent: No Hx Open Heart Surgery: No Hx Pacemaker: No Hx Internal Defibrillator: No Hx Cholecystectomy: No Hx Appendectomy: No Hx Breast Surgery: No Additional Surgical History: tubal ligation - Social History Smoking Status: Unknown if ever smoked Substance Use Type: None - Medications Home Medications: Home Medications Medication Instructions Recorded Confirmed Last Taken Type raNITIdine HCl [Zantac] 150 mg PO BID #60 tablet 03/21/17 10/17/19 10/16/19 10:00 Rx ALBUTEROL Inhaler (OR & NICU) 2 puff IH Q4H PRN 09/14/19 10/17/19 10/16/19 16:00 History [ProAir HFA Inhaler] ALBUTEROL NEB's [Proventil 0.083% 2.5 mg IH QID 09/14/19 10/17/19 Unknown History NEBS] Fluticasone/Vilanterol [Breo 1 each IH QDAY 09/14/19 10/17/19 Unknown History Ellipta 200-25 Mcg INH] Ipratropium [Atrovent NEB] 0.5 mg IH TID 09/14/19 10/17/19 10/16/19 18:00 History Mepolizumab 100 mg SUB-Q QMONTH 10/17/19 10/17/19 10/05/19 History predniSONE [Deltasone] 1 tab PO DAILY 10/17/19 10/17/19 10/16/19 11:00 History Prednisone [predniSONE 5 mg (6-Day 5 mg PO .TAPER #1 tab.ds.pk 10/18/19 Unknown Rx Pack, 21 Tabs)] amLODIPine 5 mg PO DAILY #30 tab 10/18/19 Unknown Rx Azithromycin [Zithromax Z-LEVAR] 0 mg PO DAILY #1 tab 11/13/19 Unknown Rx Benzonatate [Tessalon Perles] 100 mg PO Q8HR #30 capsule 11/13/19 Unknown Rx Montelukast [Singulair] 1 mg PO QPM #30 11/13/19 Unknown Rx ED Physical Exam - General Limitations: No Limitations General appearance: alert, in distress (moderate respiratory distress) - Head Head exam: Present: atraumatic, normocephalic, normal inspection - Eye Eye exam: Present: normal appearance - ENT ENT exam: Present: normal exam, normal orophraynx, mucous membranes moist - Neck Neck exam: Present: normal inspection, full ROM. Absent: tenderness, meningismus - Respiratory Respiratory exam: Present: normal lung sounds bilaterally, respiratory distress, wheezes, rales, rhonchi, decreased breath sounds, prolonged expiratory. Absent: stridor, chest wall tenderness, accessory muscle use - Cardiovascular Cardiovascular Exam: Present: tachycardia - GI/Abdominal GI/Abdominal exam: Present: soft, normal bowel sounds. Absent: distended, tenderness, guarding, rebound, rigid, organomegaly, mass, bruit, pulsatile mass, hernia - Extremities Exam Extremities exam: Present: normal inspection, full ROM, normal capillary refill. Absent: tenderness, pedal edema, joint swelling, calf tenderness - Back Exam Back exam: Present: normal inspection, full ROM. Absent: CVA tenderness (R), CVA tenderness (L), muscle spasm, paraspinal tenderness, vertebral tenderness - Neurological Exam Neurological exam: Present: alert, oriented X3, CN II-XII intact, normal gait, reflexes normal. Absent: motor sensory deficit - Psychiatric Psychiatric exam: Present: normal mood - Skin Skin exam: Present: warm, intact, normal color ED Course Vital Signs 11/14/19 11/14/19 11/14/19 22:10 22:16 22:35 Temperature 101.9 F H 101.9 F H Pulse Rate 138 H 131 H Pulse Rate [ 132 H Bilateral Throughout] Respiratory 24 24 Rate Respiratory 20 Rate [Bilateral Throughout] Blood Pressure 120/75 Blood Pressure 120/75 [Right] O2 Sat by Pulse 96 95 Oximetry 11/14/19 11/14/19 11/14/19 23:00 23:15 23:30 Temperature Pulse Rate 120 H 126 H Pulse Rate [ Bilateral Throughout] Respiratory 17 17 Rate Respiratory Rate [Bilateral Throughout] Blood Pressure 133/75 122/71 Blood Pressure [Right] O2 Sat by Pulse 98 99 99 Oximetry 11/14/19 11/15/19 11/15/19 23:46 00:00 00:15 Temperature Pulse Rate 122 H 123 H 126 H Pulse Rate [ Bilateral Throughout] Respiratory 19 18 27 H Rate Respiratory Rate [Bilateral Throughout] Blood Pressure 116/71 119/78 134/77 Blood Pressure [Right] O2 Sat by Pulse 98 98 99 Oximetry 11/15/19 11/15/19 11/15/19 00:30 00:46 01:00 Temperature Pulse Rate 126 H 124 H 128 H Pulse Rate [ Bilateral Throughout] Respiratory 33 H 28 H 24 Rate Respiratory Rate [Bilateral Throughout] Blood Pressure 120/58 122/56 135/75 Blood Pressure [Right] O2 Sat by Pulse 96 Oximetry 11/15/19 01:13 Temperature Pulse Rate Pulse Rate [ Bilateral Throughout] Respiratory 32 H Rate Respiratory Rate [Bilateral Throughout] Blood Pressure Blood Pressure [Right] O2 Sat by Pulse 92 Oximetry ED Medical Decision Making - Lab Data Result diagrams: 11/14/19 23:21 11/14/19 23:21 - Radiology Data Radiology results: report reviewed - Medical Decision Making Patient is 49 years old female with history of hypertension and asthma. Patient had history of intubation before secondary to severe asthma. Patient discharged from the hospital yesterday after she was admitted for 2 days for asthma exacerbation. Patient presented today complaining of severe shortness of breath, wheezing and fever associated with his cough, productive with greenish sputum. Patient received albuterol, Atrovent and Solu-Medrol. She also received Levaquin 500 mg IV. Labs reviewed and is unremarkable. Chest x-ray is negative for acute finding. I discussed the patient is Dr. Johns, he agreed to admit the patient to medical service for further management. Critical Care Time: Yes Critical care time in (mins) excluding proc time.: 30 Critical care attestation.: If time is entered above; I have spent that time in minutes in the direct care of this critically ill patient, excluding procedure time. ED Disposition Clinical Impression: Asthmatic bronchitis with exacerbation, Fever Disposition: OP ADMIT IP TO THIS HOSP Is pt being admited?: Yes Condition: Stable
[2019-11-15 00:20] LABS: Hemoglobin 12.7 gm/dl (10.1-14.3); Mean Corpuscular HGB Conc 32 % (30-34); Mean Corpuscular Volume 86 fl (79-97); Red Blood Count 4.65 M/mm3 (3.65-5.03); Red Cell Distribution Width 14.3 % (13.2-15.2)
--- NOTE | 2019-11-15 00:24 | XRay Report ---
CHEST 1 VIEW INDICATION: shortness of breath. COMPARISON: 11/11/2019 FINDINGS: SUPPORT DEVICES: None. HEART / MEDIASTINUM: No significant abnormality. LUNGS / PLEURA: No significant pulmonary or pleural abnormality. No pneumothorax. ADDITIONAL FINDINGS: IMPRESSION: 1. No acute findings. Signer Name: Jose Ferrari MD Signed: 11/15/2019 12:20 AM Workstation Name: [id number]
[2019-11-15 00:36] LABS: Alanine Aminotransferase 13 units/L (7-56); Albumin 3.6 g/dL (3.9-5); BUN/Creatinine Ratio 12; Blood Urea Nitrogen 11 mg/dL (7-17); Calcium 8.9 mg/dL (8.4-10.2); Hemolysis Index 70
[2019-11-15] MEDS ORDERED: SODIUM CHLORIDE 0.9% 1000 ML 1,000 ML IV ONE (01:25)
[2019-11-15] MEDS ORDERED: ONDANSETRON 4 MG/2 ML INJ IV PRN (01:46)
[2019-11-15] MEDS ORDERED: MORPHINE 2 MG/1 ML INJ IV PRN (01:46)
[2019-11-15] MEDS ORDERED: MAGNESIUM HYDROXIDE (MOM) ORAL LIQD UDC PO PRN (01:46)
[2019-11-15] MEDS ORDERED: ACETAMINOPHEN 325 MG TAB PO PRN (01:46)
[2019-11-15 01:51] LABS: Basophils % (Manual) 0 % (0.0-1.8); Eosinophils % (Manual) 0 % (0.0-4.3); Total Cells Counted 100
[2019-11-15 01:53] LABS: Large Platelets Rare; Platelet Estimate Consistent w Auto; RBC Morphology Normal
[2019-11-15] MEDS ORDERED: SODIUM CHLORIDE 0.9% 1000 ML 1,000 ML IV SCH (02:00)
[2019-11-15] MEDS: IPRATROPIUM/ALBUTEROL SULFATE 3 ML AMPUL.NEB IH SCH ×4 (02:03→20:45)
[2019-11-15] MEDS ORDERED: IPRATROPIUM/ALBUTEROL SULFATE 3 ML AMPUL.NEB IH ONE (02:03)
[2019-11-15 02:04] LABS: Platelet Count 203 K/mm3 (140-440)
--- NOTE | 2019-11-15 02:19 | History and Physical Report ---
History of Present Illness Date of examination: 11/15/19 Date of admission: 11/15/19 01:46 Chief complaint: Shortness of breath History of present illness: 49-year-old female with known history of asthma and also a history of previous intubation in the past presenting to the emergency room today complaining of shortness of breath and cough. This has been ongoing for the past 2 days. She was just recently discharged from this hospital few days ago for asthma ex acerbation. Cough has been productive of some slightly yellowish sputum. She denies any chest pain. No nausea vomiting. Upon arrival in the emergency room she was found to be tachypneic, tachycardic and had a temperature of about 102 F. She had nebulizing treatments and IV steroids with some relief. Past History Past Medical History: hypertension, other (Asthma) Past Surgical History: No surgical history Social history: no significant social history Family history: no significant family history Medications and Allergies Allergies Allergy/AdvReac Type Severity Reaction Status Date / Time wheat Allergy Unknown Verified 11/11/19 13:04 Home Medications Medication Instructions Recorded Confirmed Last Taken Type ALBUTEROL Inhaler (OR & NICU) 2 puff IH Q4H PRN 09/14/19 11/15/19 10/16/19 16:00 History [ProAir HFA Inhaler] amLODIPine 5 mg PO DAILY #30 tab 10/18/19 11/15/19 Unknown Rx Montelukast [Singulair] 1 mg PO QPM #30 11/13/19 11/15/19 Unknown Rx Active Meds: Active Medications Acetaminophen (Tylenol) 650 mg PO Q4H PRN PRN Reason: Pain MILD(1-3)/Fever >100.5/BOOKER Albuterol/Ipratropium (Duoneb *Not For Prn Use*) 1 ampul IH Q6HRT [facility] Last Admin: 11/15/19 02:03 Dose: 1 ampul Documented by: Heparin Sodium (Porcine) (Heparin) 5,000 unit SUB-Q Q8HR [facility] Sodium Chloride (Nacl 0.9% 1000 Ml) 1,000 mls @ 999 mls/hr IV BOLUS ONE Stop: 11/15/19 02:25 Last Admin: 11/15/19 01:42 Dose: 999 mls/hr Documented by: Sodium Chloride (Nacl 0.9% 1000 Ml) 1,000 mls @ 125 mls/hr IV DIRECT JOSE D Magnesium Hydroxide (Milk Of Magnesia) 30 ml PO Q4H PRN PRN Reason: Constipation Methylprednisolone Sodium Succinate (Solu-Medrol) 40 mg IV Q6HR JOSE D Morphine Sulfate (Morphine) 2 mg IV Q4H PRN PRN Reason: Pain, Moderate (4-6) Ondansetron HCl (Zofran) 4 mg IV Q8H PRN PRN Reason: Nausea And Vomiting Sodium Chloride (Sodium Chloride Flush Syringe 10 Ml) 10 ml IV PRN PRN PRN Reason: LINE FLUSH Review of Systems Constitutional: fever Respiratory: cough with sputum, shortness of breath Exam - Constitutional Vitals: Temp Pulse Resp BP Pulse Ox 99.7 F H 118 H 21 125/92 96 11/15/19 01:30 11/15/19 02:06 11/15/19 02:06 11/15/19 01:30 11/15/19 01:30 General appearance: Present: mild distress - EENT Eyes: Present: PERRL, EOM intact ENT: hearing intact, clear oral mucosa, dentition normal - Neck Neck: Present: supple, normal ROM - Respiratory Respiratory effort: labored Respiratory: bilateral: wheezing - Cardiovascular Rhythm: regular Heart Sounds: Present: S1 & S2 - Extremities Extremities: no ischemia, pulses intact, pulses symmetrical, No edema Peripheral Pulses: within normal limits - Abdominal General gastrointestinal: Present: soft, non-tender, non-distended - Integumentary Integumentary: Present: clear, warm, dry - Musculoskeletal Musculoskeletal: strength equal bilaterally - Psychiatric Psychiatric: appropriate mood/affect, intact judgment & insight, cooperative - Neurologic Neurologic: CNII-XII intact, moves all extremities Results - Labs CBC & Chem 7: 11/14/19 23:21 11/14/19 23:21 Labs: Abnormal lab results 11/14/19 11/14/19 Range/Units 23:21 23:21 MCH 27 L (28-32) pg Monocytes % (Manual) 17.0 H (0.0-7.3) % Seg Neutrophils # Man 0.0 L (1.8-7.7) K/mm3 Lymphocytes # (Manual) 0.0 L (1.2-5.4) K/mm3 Albumin 3.6 L (3.9-5) g/dL Assessment and Plan - Patient Problems (1) Asthma with acute exacerbation in adult Current Visit: No Status: Acute Plan to address problem: Patient placed on nebulizing treatment and IV steroid. We will keep O2 saturation greater or equal to 92%. (2) Fever Current Visit: Yes Status: Acute Plan to address problem: Etiology is unclear however this may be secondary to an underlying bronchitis. Patient placed on IV Levaquin empirically. (3) DVT prophylaxis Current Visit: No Status: Acute Plan to address problem: Patient placed on subcutaneous heparin. (4) Full code status Current Visit: No Status: Acute
[2019-11-15] MEDS: HEPARIN 5,000 UNIT/1 ML VIAL SUB-Q SCH ×3 (06:06→22:06)
[2019-11-15] MEDS: methylPREDNISolone Sod Succinate 40 MG/1 ML INJ IV SCH ×3 (06:06→19:14)
[2019-11-15] MEDS: amLODIPine 5 MG TAB PO SCH (10:22)
--- NOTE | 2019-11-15 13:57 | Consultation ---
History of Present Illness Consult date: 11/15/19 Requesting physician: LESIA SWEENEY Reason for consult: asthma History of present illness: 49 y/o female with severe persistent asthma, just discharged 2 days ago returned to the ED with shortness of breath and Fever less than 24 hours post discharge. Patient has been swabbed for the flu but results not back yet. Coughing is productive of green sputum. Remainder is negative. Past History Past Medical History: hypertension, other (Asthma) Past Surgical History: No surgical history Social history: no significant social history Family history: no significant family history Medications and Allergies Allergies Allergy/AdvReac Type Severity Reaction Status Date / Time wheat Allergy Unknown Verified 11/11/19 13:04 Home Medications Medication Instructions Recorded Confirmed Last Taken Type ALBUTEROL Inhaler (OR & NICU) 2 puff IH Q4H PRN 09/14/19 11/15/19 10/16/19 16:00 History [ProAir HFA Inhaler] amLODIPine 5 mg PO DAILY #30 tab 10/18/19 11/15/19 Unknown Rx Montelukast [Singulair] 1 mg PO QPM #30 11/13/19 11/15/19 Unknown Rx Active Meds: Active Medications Acetaminophen (Tylenol) 650 mg PO Q4H PRN PRN Reason: Pain MILD(1-3)/Fever >100.5/BOOKER Albuterol/Ipratropium (Duoneb *Not For Prn Use*) 1 ampul IH Q6HRT [facility] Last Admin: 11/15/19 08:42 Dose: 1 ampul Documented by: Amlodipine Besylate (Amlodipine) 5 mg PO DAILY [facility] Last Admin: 11/15/19 10:22 Dose: 5 mg Documented by: Heparin Sodium (Porcine) (Heparin) 5,000 unit SUB-Q Q8HR [facility] Last Admin: 11/15/19 06:06 Dose: 5,000 unit Documented by: Sodium Chloride (Nacl 0.9% 1000 Ml) 1,000 mls @ 125 mls/hr IV DIRECT JOSE D Magnesium Hydroxide (Milk Of Magnesia) 30 ml PO Q4H PRN PRN Reason: Constipation Methylprednisolone Sodium Succinate (Solu-Medrol) 40 mg IV Q6HR [facility] Last Admin: 11/15/19 12:23 Dose: 40 mg Documented by: Montelukast Sodium (Singulair) 10 mg PO QPM JOSE D Morphine Sulfate (Morphine) 2 mg IV Q4H PRN PRN Reason: Pain, Moderate (4-6) Ondansetron HCl (Zofran) 4 mg IV Q8H PRN PRN Reason: Nausea And Vomiting Sodium Chloride (Sodium Chloride Flush Syringe 10 Ml) 10 ml IV PRN PRN PRN Reason: LINE FLUSH Physical Examination Vital signs: Vital Signs Temp Pulse Resp BP Pulse Ox 101.9 F H 138 H 24 120/75 96 11/14/19 22:10 11/14/19 22:10 11/14/19 22:10 11/14/19 22:10 11/14/19 22:10 General appearance: no acute distress, alert Eyes: non-icteric ENT: oropharynx moist Neck: supple Effort: normal Ascultation: Bilateral: wheezes Percussion: Bilateral: not dull Tactile fremitus: Bilateral: normal Cardiovascular: regular rate and rhythm Gastrointestinal: normoactive bowel sounds, soft Musculoskeletal: no deformities Gait: normal gait normal mental status, non-focal exam Results - Laboratory Findings CBC and BMP: 11/14/19 23:21 11/14/19 23:21 Abnormal lab findings: Abnormal Labs 11/14/19 11/14/19 23:21 23:21 MCH 27 L Monocytes % (Manual) 17.0 H Seg Neutrophils # Man 0.0 L Lymphocytes # (Manual) 0.0 L Albumin 3.6 L - Diagnostic Findings Chest x-ray: image reviewed (clear CXR) Assessment and Plan 49 y/o female with acute asthmatic exacerbation. 1. No evidence of pneumonia on CXR 2. Would suggest treatment with at least Levaquin daily and would empirically start tamiflu until swab is back 3. Continue IV steroids and scheduled nebs as ordered Thank you for this consult, will continue to follow along with you.
--- NOTE | 2019-11-15 14:38 | Event Note ---
Date: 11/15/19 Patient seen and examined 49-year-old female with known history of asthma and also a history of previous intubation in the past presented to the emergency room complaining of shortness of breath and cough. s/p Bipap, feeling better but still sig SOb with minimal exertion . cont current mx and plan as dictated in h and p
[2019-11-15] MEDS: MONTELUKAST 10 MG TAB PO SCH (19:14)
[2019-11-16] MEDS: methylPREDNISolone Sod Succinate 40 MG/1 ML INJ IV SCH ×4 (00:35→17:49)
[2019-11-16] MEDS: IPRATROPIUM/ALBUTEROL SULFATE 3 ML AMPUL.NEB IH SCH ×4 (02:00→20:40)
[2019-11-16] MEDS: HEPARIN 5,000 UNIT/1 ML VIAL SUB-Q SCH ×2 (06:03→15:07)
[2019-11-16 06:31] LABS: Hematocrit 38.9 % (30.3-42.9); Hemoglobin 12.3 gm/dl (10.1-14.3); Mean Corpuscular HGB Conc 32 % (30-34); Mean Corpuscular Volume 86 fl (79-97); Platelet Count 239 K/mm3 (140-440); Red Blood Count 4.51 M/mm3 (3.65-5.03); Red Cell Distribution Width 14.4 % (13.2-15.2)
[2019-11-16 07:01] LABS: INR 1.02 (0.87-1.13)
[2019-11-16 07:02] LABS: Partial Thromboplastin Time 25.6 Sec. (24.2-36.6)
[2019-11-16] MEDS: amLODIPine 5 MG TAB PO SCH (09:41)
[2019-11-16 10:58] LABS: Band Neutrophils # (Manual) 0.2 K/mm3; Basophils % (Manual) 0 % (0.0-1.8); Eosinophils % (Manual) 0 % (0.0-4.3); Myelocytes # (Manual) 0.2 K/mm3; Platelet Estimate Consistent w Auto; RBC Morphology Normal; Total Cells Counted 100
--- NOTE | 2019-11-16 14:51 | Progress Note ---
Assessment and Plan Impression: Acute asthma attack Chronic moderate to severe persistent asthma with recurrent acute exacerbations Obesity Recommendation: Continue with inhaled bronchodilators, LABA/ICS Continue with IV steroids. Patient will require allergy testing as outpatient. Subjective Date of service: 11/16/19 Interval history: Patient feeling better. Improved shortness of breath and wheezing. No new complaints. Objective Vital Signs - 12hr 11/16/19 11/16/19 11/16/19 04:25 04:26 07:44 Temperature 98.2 F Pulse Rate 101 H Pulse Rate [ 90 Bilateral Throughout] Respiratory 18 Rate Respiratory 20 Rate [Bilateral Throughout] Blood Pressure 118/53 O2 Sat by Pulse 99 Oximetry 11/16/19 11/16/19 11/16/19 07:45 08:01 09:00 Temperature 98.5 F Pulse Rate 103 H Pulse Rate [ Bilateral Throughout] Respiratory 19 Rate Respiratory Rate [Bilateral Throughout] Blood Pressure 143/69 O2 Sat by Pulse 99 99 99 Oximetry 11/16/19 11/16/19 11/16/19 09:41 10:00 13:18 Temperature Pulse Rate 103 H 88 Pulse Rate [ 90 Bilateral Throughout] Respiratory Rate Respiratory 20 Rate [Bilateral Throughout] Blood Pressure 143/69 O2 Sat by Pulse Oximetry Constitutional: no acute distress, alert Eyes: non-icteric ENT: oropharynx moist Neck: supple Effort: normal Ascultation: Bilateral: wheezes (mild) Percussion: Bilateral: not dull Tactile fremitus: Bilateral: normal Cardiovascular: regular rate and rhythm Gastrointestinal: normoactive bowel sounds, soft Neurologic: normal mental status, non-focal exam CBC and BMP: 11/16/19 05:30 11/14/19 23:21 ABG, PT/INR, D-dimer: PT/INR, D-dimer PT 13.5 Sec. (12.2-14.9) 11/16/19 05:30 INR 1.02 (0.87-1.13) 11/16/19 05:30 Abnormal lab findings: Abnormal Labs 11/14/19 11/14/19 11/16/19 23:21 23:21 05:30 WBC 16.8 H MCH 27 L 27 L Seg Neuts % (Manual) 93.0 H Lymphocytes % (Manual) 4.0 L Monocytes % (Manual) 17.0 H Seg Neutrophils # Man 0.0 L 15.6 H Lymphocytes # (Manual) 0.0 L 0.7 L Albumin 3.6 L
--- NOTE | 2019-11-16 15:24 | Progress Note ---
Assessment and Plan /Severe persistent Asthma with acute exacerbation in adult Patient placed on nebulizing treatment and IV steroid. We will keep O2 saturati on greater or equal to 92%. Pulmonary following, will also continue antibiotics /Acute hypoxic respiratory failure, present on admission Due to severe persistent asthma exacerbation Continue to treat underlying condition, keep oxygen saturation greater than or equal to 92% with supplemental O2 /SIRS with Fever, tachycardia and tachypnea secondary to an underlying bronchitis and acute asthma exacerbation. Patient placed on IV Levaquin empirically. /Morbid obesity Diet and exercise regimen for weight reduction as outpatient / DVT prophylaxis Patient placed on subcutaneous heparin. Subjective Date of service: 11/16/19 Interval history: Patient seen and examined. Medical records and medication list reviewed. No acute event overnight noted by the RN. Patient culture complains of difficulty breathing even on resting, also has significant chest tightness with pleuritic chest pain. Patient is tolerating diet. Discussed plan of care at bedside with patient. Objective - Constitutional Vitals: Vital Signs - 12hr 11/16/19 11/16/19 11/16/19 04:25 04:26 07:44 Temperature 98.2 F Pulse Rate 101 H Pulse Rate [ 90 Bilateral Throughout] Respiratory 18 Rate Respiratory 20 Rate [Bilateral Throughout] Blood Pressure 118/53 O2 Sat by Pulse 99 Oximetry 11/16/19 11/16/19 11/16/19 07:45 08:01 09:00 Temperature 98.5 F Pulse Rate 103 H Pulse Rate [ Bilateral Throughout] Respiratory 19 Rate Respiratory Rate [Bilateral Throughout] Blood Pressure 143/69 O2 Sat by Pulse 99 99 99 Oximetry 11/16/19 11/16/19 11/16/19 09:41 10:00 13:18 Temperature Pulse Rate 103 H 88 Pulse Rate [ 90 Bilateral Throughout] Respiratory Rate Respiratory 20 Rate [Bilateral Throughout] Blood Pressure 143/69 O2 Sat by Pulse Oximetry General appearance: Present: mild distress, obese - EENT Eyes: PERRL, EOM intact ENT: hearing intact, clear oral mucosa Ears: bilateral: normal - Neck Neck: supple, normal ROM - Respiratory Respiratory effort: labored Respiratory: bilateral: wheezing (diffuse wheezing bilaterally) - Cardiovascular Rhythm: regular Heart Sounds: Present: S1 & S2. Absent: gallop, rub Extremities: pulses intact, No edema, normal color, Full ROM - Gastrointestinal General gastrointestinal: Present: soft, non-tender, non-distended, normal bowel sounds - Integumentary Integumentary: clear, warm, dry - Musculoskeletal Musculoskeletal: 1, strength equal bilaterally - Neurologic Neurologic: moves all extremities - Psychiatric Psychiatric: memory intact, appropriate mood/affect, intact judgment & insight - Labs CBC & Chem 7: 11/16/19 05:30 11/14/19 23:21 Labs: Abnormal lab results 11/16/19 Range/Units 05:30 WBC 16.8 H (4.5-11.0) K/mm3 MCH 27 L (28-32) pg Seg Neuts % (Manual) 93.0 H (40.0-70.0) % Lymphocytes % (Manual) 4.0 L (13.4-35.0) % Seg Neutrophils # Man 15.6 H (1.8-7.7) K/mm3 Lymphocytes # (Manual) 0.7 L (1.2-5.4) K/mm3 - Imaging and cardiology Chest x-ray: report reviewed
[2019-11-16] MEDS: MONTELUKAST 10 MG TAB PO SCH (17:49)
[2019-11-17] MEDS: HEPARIN 5,000 UNIT/1 ML VIAL SUB-Q SCH ×4 (00:07→22:16)
[2019-11-17] MEDS: methylPREDNISolone Sod Succinate 40 MG/1 ML INJ IV SCH ×4 (00:07→17:46)
[2019-11-17] MEDS: IPRATROPIUM/ALBUTEROL SULFATE 3 ML AMPUL.NEB IH SCH ×4 (02:00→20:46)
[2019-11-17] MEDS ORDERED: BUDESONIDE 0.5 MG/2 ML NEBU IH SCH (10:00)
[2019-11-17] MEDS ORDERED: ARFORMOTEROL 15 MCG/2 ML NEBU IH SCH (10:00)
[2019-11-17] MEDS ORDERED: BUDESONIDE 0.5 MG, ARFORMOTEROL NEBU 15 MCG IH SCH (10:00)
[2019-11-17] MEDS: amLODIPine 5 MG TAB PO SCH (10:43)
[2019-11-17] MEDS: BUDESONIDE 0.5 MG/2 ML NEBU IH SCH ×2 (14:51→20:46)
[2019-11-17] MEDS: ARFORMOTEROL 15 MCG/2 ML NEBU IH SCH ×2 (14:52→20:46)
--- NOTE | 2019-11-17 16:25 | Progress Note ---
Assessment and Plan /Acute hypoxic respiratory failure, present on admission Due to severe persistent asthma exacerbation Continue to treat underlying condition, keep oxygen saturation greater than or equal to 92% with supplemental O2 /Severe persistent Asthma with acute exacerbation in adult Patient placed on nebulizing treatment and IV steroid. We will keep O2 saturation greater or equal to 92%. Pulmonary following, will also continue antibiotics /SIRS with Fever, tachycardia and tachypnea secondary to an underlying bronchitis and acute asthma exacerbation. Patient placed on IV Levaquin empirically. /Morbid obesity Diet and exercise regimen for weight reduction as outpatient / DVT prophylaxis Patient placed on subcutaneous heparin. Subjective Date of service: 11/17/19 Interval history: Patient seen and examined. Medical records and medication list reviewed. No acute event overnight noted by the RN. Patient continued to complains of difficulty breathing with minor exertion, also has significant chest tightness with pleuritic chest pain. Patient is tolerating diet. Discussed plan of care at bedside with patient. Objective - Exam Narrative Exam: General appearance: Present: no distress, obese - EENT Eyes: PERRL, EOM intact ENT: hearing intact, clear oral mucosa Ears: bilateral: normal - Neck Neck: supple, normal ROM - Respiratory Respiratory effort: labored Respiratory: bilateral: wheezing (diffuse wheezing bilaterally) - Cardiovascular Rhythm: regular Heart Sounds: Present: S1 & S2. Absent: gallop, rub Extremities: pulses intact, No edema, normal color, Full ROM - Gastrointestinal General gastrointestinal: Present: soft, non-tender, non-distended, normal bowel sounds - Integumentary Integumentary: clear, warm, dry - Musculoskeletal Musculoskeletal: 1, strength equal bilaterally - Neurologic Neurologic: moves all extremities - Psychiatric Psychiatric: memory intact, appropriate mood/affect, intact judgment & insight - Constitutional Vitals: Vital Signs - 12hr 11/17/19 11/17/19 11/17/19 05:33 05:39 07:55 Temperature 97.6 F Pulse Rate 82 Pulse Rate [ Bilateral Throughout] Respiratory 20 18 Rate Respiratory Rate [Bilateral Throughout] Blood Pressure 130/72 O2 Sat by Pulse 99 Oximetry 11/17/19 11/17/19 11/17/19 08:00 08:25 08:32 Temperature 98.3 F Pulse Rate 91 H Pulse Rate [ 86 Bilateral Throughout] Respiratory 18 Rate Respiratory 20 Rate [Bilateral Throughout] Blood Pressure 118/55 O2 Sat by Pulse 99 98 Oximetry 1211/17/19 11/17/19 10:00 10:42 10:43 Temperature Pulse Rate 107 H 95 H 94 H Pulse Rate [ Bilateral Throughout] Respiratory 18 Rate Respiratory Rate [Bilateral Throughout] Blood Pressure 133/70 133/70 O2 Sat by Pulse 98 Oximetry 11/17/19 14:00 Temperature Pulse Rate Pulse Rate [ 86 Bilateral Throughout] Respiratory Rate Respiratory 20 Rate [Bilateral Throughout] Blood Pressure O2 Sat by Pulse Oximetry - Labs CBC & Chem 7: 11/16/19 05:30 11/14/19 23:21
[2019-11-17] MEDS: MONTELUKAST 10 MG TAB PO SCH (17:46)
--- NOTE | 2019-11-17 22:00 | Progress Note ---
Assessment and Plan Imp: 1. Severe persistent asthma with acute exac. 2. Obesity 3. OBDULIA 4. GERD 5. Leukocytosis 2/2 steroids Rec: 1. Still wheezing and high bounce-back potential; cont. Solumedrol and Bronchodilators same 2. Poor candidate for allergy scratch testing due to chronically uncontrolled asthma, already on Nucala, and on chronic Prednisone therapy 3. No further fevers 4. Will follow Plan of care reviewed with patient, she understands/agrees Subjective Date of service: 11/17/19 Principal diagnosis: Asthma Interval history: No events. SOB/wheezing above baseline though better. No new complaints. Active Medications Acetaminophen (Tylenol) 650 mg PO Q4H PRN PRN Reason: Pain MILD(1-3)/Fever >100.5/BOOKER Albuterol/Ipratropium (Duoneb *Not For Prn Use*) 1 ampul IH Q6HRT [facility] Last Admin: 11/17/19 20:46 Dose: 1 ampul Documented by: Amlodipine Besylate (Amlodipine) 5 mg PO DAILY [facility] Last Admin: 11/17/19 10:43 Dose: 5 mg Documented by: Arformoterol Tartrate (Brovana Nebu) 15 mcg IH Q12HRT [facility] Last Admin: 11/17/19 20:46 Dose: 15 mcg Documented by: Budesonide (Pulmicort) 0.5 mg IH Q12HRT [facility] Last Admin: 11/17/19 20:46 Dose: 0.5 mg Documented by: Famotidine (Pepcid) 20 mg PO BID [facility] Heparin Sodium (Porcine) (Heparin) 5,000 unit SUB-Q Q8HR [facility] Last Admin: 11/17/19 14:15 Dose: 5,000 unit Documented by: Sodium Chloride (Nacl 0.9% 1000 Ml) 1,000 mls @ 125 mls/hr IV DIRECT [facility] Magnesium Hydroxide (Milk Of Magnesia) 30 ml PO Q4H PRN PRN Reason: Constipation Methylprednisolone Sodium Succinate (Solu-Medrol) 40 mg IV Q6HR [facility] Last Admin: 11/17/19 17:46 Dose: 40 mg Documented by: Montelukast Sodium (Singulair) 10 mg PO QPM [facility] Last Admin: 11/17/19 17:46 Dose: 10 mg Documented by: Morphine Sulfate (Morphine) 2 mg IV Q4H PRN PRN Reason: Pain, Moderate (4-6) Ondansetron HCl (Zofran) 4 mg IV Q8H PRN PRN Reason: Nausea And Vomiting Sodium Chloride (Sodium Chloride Flush Syringe 10 Ml) 10 ml IV PRN PRN PRN Reason: LINE FLUSH Last Admin: 11/17/19 10:44 Dose: 10 ml Documented by: Objective Vital Signs - 12hr 11/17/19 11/17/19 11/17/19 10:00 10:42 10:43 Temperature Pulse Rate 107 H 95 H 94 H Pulse Rate [ Bilateral Throughout] Respiratory 18 Rate Respiratory Rate [Bilateral Throughout] Blood Pressure 133/70 133/70 O2 Sat by Pulse 98 Oximetry 11/17/19 11/17/19 11/17/19 12:08 14:00 20:15 Temperature 99.3 F Pulse Rate 98 H 90 Pulse Rate [ 86 Bilateral Throughout] Respiratory 18 18 Rate Respiratory 20 Rate [Bilateral Throughout] Blood Pressure 105/81 130/77 O2 Sat by Pulse 99 96 Oximetry 11/17/19 11/17/19 20:16 20:48 Temperature 97.8 F Pulse Rate Pulse Rate [ 90 Bilateral Throughout] Respiratory Rate Respiratory 20 Rate [Bilateral Throughout] Blood Pressure O2 Sat by Pulse 100 Oximetry Constitutional: no acute distress, alert, other (obese) Eyes: non-icteric ENT: oropharynx moist Neck: supple Effort: normal Ascultation: Bilateral: wheezes (mild) Cardiovascular: regular rate and rhythm Gastrointestinal: normoactive bowel sounds, soft Integumentary: normal Extremities: no cyanosis, no edema Neurologic: normal mental status, non-focal exam Psychiatric: mood appropriate, affect normal CBC and BMP: 11/16/19 05:30 11/14/19 23:21 ABG, PT/INR, D-dimer: PT/INR, D-dimer PT 13.5 Sec. (12.2-14.9) 11/16/19 05:30 INR 1.02 (0.87-1.13) 11/16/19 05:30 Abnormal lab findings: Abnormal Labs 11/14/19 11/14/19 11/16/19 23:21 23:21 05:30 WBC 16.8 H MCH 27 L 27 L Seg Neuts % (Manual) 93.0 H Lymphocytes % (Manual) 4.0 L Monocytes % (Manual) 17.0 H Seg Neutrophils # Man 0.0 L 15.6 H Lymphocytes # (Manual) 0.0 L 0.7 L Albumin 3.6 L Chest x-ray: report reviewed, image reviewed
[2019-11-18] MEDS: methylPREDNISolone Sod Succinate 40 MG/1 ML INJ IV SCH ×5 (00:25→23:09)
[2019-11-18] MEDS: FAMOTIDINE 20 MG TAB PO SCH ×3 (00:25→23:09)
[2019-11-18] MEDS: IPRATROPIUM/ALBUTEROL SULFATE 3 ML AMPUL.NEB IH SCH ×4 (03:18→19:41)
[2019-11-18] MEDS: HEPARIN 5,000 UNIT/1 ML VIAL SUB-Q SCH ×3 (06:06→23:09)
[2019-11-18] MEDS: amLODIPine 5 MG TAB PO SCH (09:58)
[2019-11-18] MEDS: ARFORMOTEROL 15 MCG/2 ML NEBU IH SCH ×2 (10:16→19:40)
[2019-11-18] MEDS: BUDESONIDE 0.5 MG/2 ML NEBU IH SCH ×2 (10:16→19:40)
--- NOTE | 2019-11-18 12:09 | Progress Note ---
Assessment and Plan Imp: 1. Severe persistent asthma with acute exac. 2. Obesity 3. OBDULIA 4. GERD 5. Leukocytosis 2/2 steroids Rec: 1. Still wheezing and high bounce-back potential; cont. Solumedrol another 24 hours and re-assess; cont. Bronchodilators same 2. Poor candidate for allergy scratch testing due to chronically uncontrolled asthma, already on Nucala, and on chronic Prednisone therapy 3. No further fevers 4. CPAP QHS 5. Will follow Plan of care reviewed with patient, she understands/agrees Subjective Date of service: 11/18/19 Principal diagnosis: Asthma Interval history: No events. SOB/wheezing above baseline though better. Cough is now dry, better. No new complaints. Active Medications Acetaminophen (Tylenol) 650 mg PO Q4H PRN PRN Reason: Pain MILD(1-3)/Fever >100.5/BOOKER Albuterol/Ipratropium (Duoneb *Not For Prn Use*) 1 ampul IH Q6HRT [facility] Last Admin: 11/18/19 10:16 Dose: 1 ampul Documented by: Amlodipine Besylate (Amlodipine) 5 mg PO DAILY [facility] Last Admin: 11/18/19 09:58 Dose: 5 mg Documented by: Arformoterol Tartrate (Brovana Nebu) 15 mcg IH Q12HRT [facility] Last Admin: 11/18/19 10:16 Dose: 15 mcg Documented by: Budesonide (Pulmicort) 0.5 mg IH Q12HRT [facility] Last Admin: 11/18/19 10:16 Dose: 0.5 mg Documented by: Famotidine (Pepcid) 20 mg PO BID [facility] Last Admin: 11/18/19 09:58 Dose: 20 mg Documented by: Heparin Sodium (Porcine) (Heparin) 5,000 unit SUB-Q Q8HR [facility] Last Admin: 11/18/19 06:06 Dose: 5,000 unit Documented by: Sodium Chloride (Nacl 0.9% 1000 Ml) 1,000 mls @ 125 mls/hr IV DIRECT JOSE D Magnesium Hydroxide (Milk Of Magnesia) 30 ml PO Q4H PRN PRN Reason: Constipation Methylprednisolone Sodium Succinate (Solu-Medrol) 40 mg IV Q6HR [facility] Last Admin: 11/18/19 06:06 Dose: 40 mg Documented by: Montelukast Sodium (Singulair) 10 mg PO QPM JOSE D Last Admin: 11/17/19 17:46 Dose: 10 mg Documented by: Morphine Sulfate (Morphine) 2 mg IV Q4H PRN PRN Reason: Pain, Moderate (4-6) Ondansetron HCl (Zofran) 4 mg IV Q8H PRN PRN Reason: Nausea And Vomiting Sodium Chloride (Sodium Chloride Flush Syringe 10 Ml) 10 ml IV PRN PRN PRN Reason: LINE FLUSH Last Admin: 11/18/19 06:07 Dose: 10 ml Documented by: Objective Vital Signs - 12hr 11/18/19 11/18/19 11/18/19 03:20 05:27 09:00 Temperature 97.6 F Pulse Rate 79 Pulse Rate [ 104 H Bilateral Throughout] Respiratory 18 Rate Respiratory 20 Rate [Bilateral Throughout] Respiratory 20 Rate [Denies Pain] Respiratory 20 Rate [ GENERALIZED] Respiratory 20 Rate [chest] Blood Pressure 127/63 O2 Sat by Pulse 100 Oximetry 11/18/19 11/18/19 09:58 10:00 Temperature Pulse Rate 78 86 Pulse Rate [ Bilateral Throughout] Respiratory Rate Respiratory Rate [Bilateral Throughout] Respiratory Rate [Denies Pain] Respiratory Rate [ GENERALIZED] Respiratory Rate [chest] Blood Pressure 128/64 O2 Sat by Pulse Oximetry Constitutional: no acute distress, alert, other (obese) Eyes: non-icteric ENT: oropharynx moist Neck: supple Effort: normal Ascultation: Bilateral: wheezes (mild) Percussion: Bilateral: not dull Tactile fremitus: Bilateral: normal Cardiovascular: regular rate and rhythm Gastrointestinal: normoactive bowel sounds, soft Integumentary: normal Extremities: no cyanosis, no edema Neurologic: normal mental status, non-focal exam Psychiatric: mood appropriate, affect normal CBC and BMP: 11/16/19 05:30 11/14/19 23:21 ABG, PT/INR, D-dimer: PT/INR, D-dimer PT 13.5 Sec. (12.2-14.9) 11/16/19 05:30 INR 1.02 (0.87-1.13) 11/16/19 05:30 Abnormal lab findings: Abnormal Labs 11/14/19 11/14/19 11/16/19 23:21 23:21 05:30 WBC 16.8 H MCH 27 L 27 L Seg Neuts % (Manual) 93.0 H Lymphocytes % (Manual) 4.0 L Monocytes % (Manual) 17.0 H Seg Neutrophils # Man 0.0 L 15.6 H Lymphocytes # (Manual) 0.0 L 0.7 L Albumin 3.6 L Chest x-ray: report reviewed, image reviewed
--- NOTE | 2019-11-18 13:35 | Progress Note ---
Assessment and Plan /Acute hypoxic respiratory failure, present on admission Due to severe persistent asthma exacerbation Continue to treat underlying condition, keep oxygen saturation greater than or equal to 92% with supplemental O2 /Severe persistent Asthma with acute exacerbation in adult Patient placed on nebulizing treatment and IV steroid. We will keep O2 saturation greater or equal to 92%. Pulmonary following, will also continue antibiotics /SIRS with Fever, tachycardia and tachypnea secondary to an underlying bronchitis and acute asthma exacerbation. Patient placed on IV Levaquin empirically. /Morbid obesity Diet and exercise regimen for weight reduction as outpatient / DVT prophylaxis Patient placed on subcutaneous heparin. Disposition: likely tomorrow if remains stable Subjective Date of service: 11/18/19 Principal diagnosis: Asthma Interval history: Patient seen and examined. Medical records and medication list reviewed. No acute event overnight noted by the RN. Patient continued to complains of difficulty breathing with exertion - but doing better now Patient is tolerating diet. Discussed plan of care at bedside with patient. Objective - Exam Narrative Exam: General appearance: Present: no distress, obese - EENT Eyes: PERRL, EOM intact ENT: hearing intact, clear oral mucosa Ears: bilateral: normal - Neck Neck: supple, normal ROM - Respiratory Respiratory effort: labored Respiratory: bilateral: wheezing (diffuse wheezing bilaterally) - Cardiovascular Rhythm: regular Heart Sounds: Present: S1 & S2. Absent: gallop, rub Extremities: pulses intact, No edema, normal color, Full ROM - Gastrointestinal General gastrointestinal: Present: soft, non-tender, non-distended, normal bowel sounds - Integumentary Integumentary: clear, warm, dry - Musculoskeletal Musculoskeletal: 1, strength equal bilaterally - Neurologic Neurologic: moves all extremities - Psychiatric Psychiatric: memory intact, appropriate mood/affect, intact judgment & insight - Constitutional Vitals: Vital Signs - 12hr 11/18/19 11/18/19 11/18/19 03:20 05:27 09:00 Temperature 97.6 F Pulse Rate 79 Pulse Rate [ 104 H Bilateral Throughout] Respiratory 18 Rate Respiratory 20 Rate [Bilateral Throughout] Respiratory 20 Rate [Denies Pain] Respiratory 20 Rate [ GENERALIZED] Respiratory 20 Rate [chest] Blood Pressure 127/63 O2 Sat by Pulse 100 Oximetry 11/18/19 11/18/19 09:58 10:00 Temperature Pulse Rate 78 86 Pulse Rate [ Bilateral Throughout] Respiratory Rate Respiratory Rate [Bilateral Throughout] Respiratory Rate [Denies Pain] Respiratory Rate [ GENERALIZED] Respiratory Rate [chest] Blood Pressure 128/64 O2 Sat by Pulse Oximetry - Labs CBC & Chem 7: 11/16/19 05:30 11/14/19 23:21
[2019-11-18] MEDS: MONTELUKAST 10 MG TAB PO SCH (17:03)
[2019-11-19] MEDS: IPRATROPIUM/ALBUTEROL SULFATE 3 ML AMPUL.NEB IH SCH ×3 (01:51→13:27)
[2019-11-19] MEDS: HEPARIN 5,000 UNIT/1 ML VIAL SUB-Q SCH ×2 (05:27→14:29)
[2019-11-19] MEDS: methylPREDNISolone Sod Succinate 40 MG/1 ML INJ IV SCH ×2 (05:27→12:22)
[2019-11-19] MEDS: ARFORMOTEROL 15 MCG/2 ML NEBU IH SCH (07:55)
[2019-11-19] MEDS: BUDESONIDE 0.5 MG/2 ML NEBU IH SCH (07:55)
[2019-11-19] MEDS: amLODIPine 5 MG TAB PO SCH (09:16)
[2019-11-19] MEDS: FAMOTIDINE 20 MG TAB PO SCH (09:16)
--- NOTE | 2019-11-19 14:38 | Progress Note ---
Assessment and Plan Imp: 1. Severe persistent asthma with acute exac. 2. Obesity 3. OBDULIA 4. GERD 5. Leukocytosis 2/2 steroids Rec: 1. Still wheezing and high bounce-back potential; cont. Solumedrol another 24 hours and re-assess; cont. Bronchodilators same 2. Poor candidate for allergy scratch testing due to chronically uncontrolled asthma, already on Nucala, and on chronic Prednisone therapy 3. No further fevers 4. CPAP QHS 5. Will follow Subjective Date of service: 11/19/19 Principal diagnosis: Asthma Interval history: Patient is still short of breath and wheezing. Overall some improvement Objective Vital Signs - 12hr 11/19/19 11/19/19 11/19/19 04:10 07:33 07:55 Temperature 98.0 F Pulse Rate 77 Pulse Rate [ 91 H Bilateral Throughout] Respiratory 18 22 Rate Respiratory 20 Rate [Bilateral Throughout] Blood Pressure 116/63 O2 Sat by Pulse 99 99 Oximetry 11/19/19 11/19/19 11/19/19 08:01 10:00 11:59 Temperature 98.0 F 98.0 F Pulse Rate 100 H 76 81 Pulse Rate [ Bilateral Throughout] Respiratory 18 20 Rate Respiratory Rate [Bilateral Throughout] Blood Pressure 126/71 124/60 O2 Sat by Pulse 98 98 Oximetry Constitutional: no acute distress, alert, other (obese) Eyes: non-icteric ENT: oropharynx moist Neck: supple Effort: normal Ascultation: Bilateral: wheezes (mild) Percussion: Bilateral: not dull Tactile fremitus: Bilateral: normal Cardiovascular: regular rate and rhythm Gastrointestinal: normoactive bowel sounds, soft Integumentary: normal Extremities: no cyanosis, no edema Neurologic: normal mental status, non-focal exam Psychiatric: mood appropriate, affect normal CBC and BMP: 11/16/19 05:30 11/14/19 23:21 ABG, PT/INR, D-dimer: PT/INR, D-dimer PT 13.5 Sec. (12.2-14.9) 11/16/19 05:30 INR 1.02 (0.87-1.13) 11/16/19 05:30 Abnormal lab findings: Abnormal Labs 11/14/19 11/14/19 11/16/19 23:21 23:21 05:30 WBC 16.8 H MCH 27 L 27 L Seg Neuts % (Manual) 93.0 H Lymphocytes % (Manual) 4.0 L Monocytes % (Manual) 17.0 H Seg Neutrophils # Man 0.0 L 15.6 H Lymphocytes # (Manual) 0.0 L 0.7 L Albumin 3.6 L
--- NOTE | 2019-11-19 15:27 | Discharge Summary ---
Providers - Providers Date of Admission: 11/15/19 01:46 Date of discharge: 11/19/19 Attending physician: LESIA SWEENEY 11/15/19 01:46 Consult to Physician [CONS] Routine Comment: Consulting Provider: ENRRIQUE HUANG Physician Instructions: Reason For Exam: ASTHMA EXAC. Primary care physician: KALEIGH JONES MD Hospitalization Condition: Stable Pertinent studies: CXR Hospital course: Discharge diagnosis: /Acute hypoxic respiratory failure, present on admission Due to severe persistent asthma exacerbation Continue to treat underlying condition, keep oxygen saturation greater than or equal to 92% with supplemental O2 /Severe persistent Asthma with acute exacerbation in adult Patient placed on nebulizing treatment and IV steroid. We will keep O2 saturation greater or equal to 92%. Pulmonary following, will also continue antibiotics /SIRS with Fever, tachycardia and tachypnea secondary to an underlying bronchitis and acute asthma exacerbation. Patient placed on IV Levaquin empirically. /Morbid obesity Diet and exercise regimen for weight reduction as outpatient / DVT prophylaxis Patient placed on subcutaneous heparin. Disposition: home Disposition: TO HOME OR SELFCARE Time spent for discharge: 34 minutes Exam - Physical Exam Narrative exam: General appearance: Present: no distress, obese - EENT Eyes: PERRL, EOM intact ENT: hearing intact, clear oral mucosa Ears: bilateral: normal - Neck Neck: supple, normal ROM - Respiratory Respiratory effort: labored Respiratory: bilateral: (few wheezing bilaterally) - Cardiovascular Rhythm: regular Heart Sounds: Present: S1 & S2. Absent: gallop, rub Extremities: pulses intact, No edema, normal color, Full ROM - Gastrointestinal General gastrointestinal: Present: soft, non-tender, non-distended, normal bowel sounds - Integumentary Integumentary: clear, warm, dry - Musculoskeletal Musculoskeletal: 1, strength equal bilaterally - Neurologic Neurologic: moves all extremities - Psychiatric Psychiatric: memory intact, appropriate mood/affect, intact judgment & insight - Constitutional Vitals: Temp Pulse Resp BP Pulse Ox 98.0 F 97 H 20 124/60 98 11/19/19 11:59 11/19/19 13:27 11/19/19 13:27 11/19/19 11:59 11/19/19 11:59 Plan Activity: advance as tolerated Weight Bearing Status: Weight Bear as Tolerated Diet: low fat, low salt Follow up with: PRIMARY CARE, [Primary Care Provider] - 7 Days Prescriptions: predniSONE [Deltasone] 50 mg PO QDAY #7 tab Ipratropium/Albuterol Sulfate [DUONEB *Not for PRN Use*] 1 ampul IH Q6HRT #30 ampul.neb Budesonide/Formoterol Fumarate [Symbicort 160-4.5 Mcg Inhaler] 10.2 gm IH BID #1 hfa.aer.ad
[2019-11-19 17:06] VITALS: BP 123/66
[2019-11-19] MEDS: MONTELUKAST 10 MG TAB PO SCH (17:08)
[2019-11-19] MEDS ORDERED: methylPREDNISolone Sod Succinate 40 MG/1 ML INJ IV SCH (22:00)
== END 2019-11-19 18:22 | disposition home or self-care (01) | DRG 189 ==
LOC: ED 21:56 → 4A 11-15 01:46
PROVIDERS: ADMIT Internal Medicine Geriatric Medicine; ATTEND Internal Medicine
PROC: 5A09357 Assistance with Respiratory Ventilation, Less than 24 Consecutive Hours, Continuous Positive Airway Pressure (ICD-10-PCS; 2019-11-17)
PROC: 5A09357 Assistance with Respiratory Ventilation, Less than 24 Consecutive Hours, Continuous Positive Airway Pressure (ICD-10-PCS; principal; 2019-11-18)
DX: J96.01 Acute respiratory failure with hypoxia (principal); R65.10 Systemic inflammatory response syndrome (SIRS) of non-infectious origin without acute organ dysfunction; J45.51 Severe persistent asthma with (acute) exacerbation; E66.01 Morbid (severe) obesity due to excess calories; Z68.38 Body mass index [BMI] 38.0-38.9, adult; I10 Essential (primary) hypertension; K21.9 Gastro-esophageal reflux disease without esophagitis; G47.33 Obstructive sleep apnea (adult) (pediatric); T38.0X5A Adverse effect of glucocorticoids and synthetic analogues, initial encounter; Y92.89 Other specified places as the place of occurrence of the external cause; Z98.51 Tubal ligation status; Z91.018 Allergy to other foods
CPT/HCPCS: 36415; 71045; 80053; 83880; 84484; 85007; 85025; 85610; 85730; 87040; 94640; 94644; 94660; 94760; G0378; J1644; J1956; J2920; J2930; J7030

== ENCOUNTER 2020-04-09 18:46 | Inpatient (IN) | payer MEDICARE ==
[2020-04-09] MEDS ORDERED: methylPREDNISolone Sod Succinate 125 MG/2 ML INJ IV ONE (19:28)
[2020-04-09] MEDS ORDERED: IPRATROPIUM 0.02% NEBU 2.5 ML IH ONE (19:28)
[2020-04-09] MEDS ORDERED: ALBUTEROL 2.5 MG/3 ML NEBU IH ONE (19:28)
--- NOTE | 2020-04-09 19:50 | XRay Report ---
CHEST 1 VIEW INDICATION: Chest Pain. COMPARISON: 03/20/2020 FINDINGS: Support devices: None. Heart: Within normal limits. Lungs/Pleura: No acute air space or interstitial disease. Additional findings: None. IMPRESSION: 1. No acute findings. Signer Name: Michael Pérez MD Signed: 04/09/2020 7:46 PM Workstation Name: [id number]
[2020-04-09 20:12] LABS: Hematocrit 40.1 % (30.3-42.9); Hemoglobin 12.5 gm/dl (10.1-14.3); Mean Corpuscular HGB Conc 31 % (30-34); Mean Corpuscular Volume 86 fl (79-97); Platelet Count 207 K/mm3 (140-440); Red Blood Count 4.66 M/mm3 (3.65-5.03); Red Cell Distribution Width 15.5 % (13.2-15.2)
[2020-04-09 20:28] LABS: BUN/Creatinine Ratio 9; Blood Urea Nitrogen 8 mg/dL (7-17); Calcium 8.8 mg/dL (8.4-10.2); Hemolysis Index 14
[2020-04-09 20:56] LABS: Basophils % (Manual) 0 % (0.0-1.8); Eosinophils % (Manual) 0 % (0.0-4.3); Total Cells Counted 100
--- NOTE | 2020-04-09 21:48 | Emergency Department Report ---
ED Asthma HPI - General Chief Complaint: Dyspnea/Respdistress Stated Complaint: DIFFICULTY BREATHING PUI?: No Time Seen by Provider: 04/09/20 19:26 Source: patient, EMS Mode of arrival: Stretcher Limitations: No Limitations - History of Present Illness MD Complaint: "asthma attack" -: days(s) (2) Asthma History: history of frequent attac, previously intubated Severity: severe Context: none known Associated Symptoms: dry cough. denies: productive cough, fever, chest pain, hemoptysis, leg edema, syncope Treatments Prior to Arrival: inhaled bronchodilator (Patient gave herself 2 albuterol nebulizer treatments at home and she received 1 en route) - Related Data Previous Rx's Medication Instructions Recorded Last Taken Type Albuterol INH(or & Nicu Only) 2 puff IH Q4H PRN 30 Days 03/23/20 Unknown Rx [ProAir HFA Inhaler] Budesonide/Formoterol Fumarate 10.2 gm IH BID #1 hfa.aer.ad 03/23/20 Unknown Rx [Symbicort 160-4.5 Mcg Inhaler] Ipratropium/Albuterol Sulfate 1 ampul IH Q6HRT #30 ampul.neb 03/23/20 Unknown Rx [DUONEB *Not for PRN Use*] Montelukast [Singulair] 1 mg PO QPM #30 03/23/20 Unknown Rx amLODIPine 5 mg PO DAILY #30 tab 03/23/20 Unknown Rx levoFLOXacin [Levaquin TAB] 500 mg PO Q24HR #7 tablet 03/23/20 Unknown Rx methylPREDNISolone [Medrol 4MG 4 mg PO DAILY #1 tab.ds.pk 03/23/20 Unknown Rx DOSEPAK (21 tabs)] Allergies Allergy/AdvReac Type Severity Reaction Status Date / Time wheat Allergy Unknown Verified 11/11/19 13:04 ED Review of Systems ROS: Stated complaint: DIFFICULTY BREATHING Other details as noted in HPI Comment: All other systems reviewed and negative ED Past Medical Hx - Past Medical History Previous Medical History?: Yes Hx Hypertension: Yes Hx Heart Attack/AMI: No Hx Congestive Heart Failure: No Hx Diabetes: No Hx Deep Vein Thrombosis: No Hx Pulmonary Embolism: No Hx Asthma: Yes Hx COPD: No Hx Tuberculosis: No Hx HIV: No Additional medical history: (5) previous intubations due to asthma complications - Surgical History Past Surgical History?: Yes Hx Coronary Stent: No Hx Open Heart Surgery: No Hx Pacemaker: No Hx Internal Defibrillator: No Hx Cholecystectomy: No Hx Appendectomy: No Hx Breast Surgery: No Additional Surgical History: tubal ligation - Social History Smoking Status: Never Smoker Substance Use Type: None - Medications Home Medications: Home Medications Medication Instructions Recorded Confirmed Last Taken Type Albuterol INH(or & Nicu Only) 2 puff IH Q4H PRN 30 Days 03/23/20 Unknown Rx [ProAir HFA Inhaler] Budesonide/Formoterol Fumarate 10.2 gm IH BID #1 hfa.aer.ad 03/23/20 Unknown Rx [Symbicort 160-4.5 Mcg Inhaler] Ipratropium/Albuterol Sulfate 1 ampul IH Q6HRT #30 ampul.neb 03/23/20 Unknown Rx [DUONEB *Not for PRN Use*] Montelukast [Singulair] 1 mg PO QPM #30 03/23/20 Unknown Rx amLODIPine 5 mg PO DAILY #30 tab 03/23/20 Unknown Rx levoFLOXacin [Levaquin TAB] 500 mg PO Q24HR #7 tablet 03/23/20 Unknown Rx methylPREDNISolone [Medrol 4MG 4 mg PO DAILY #1 tab.ds.pk 03/23/20 Unknown Rx DOSEPAK (21 tabs)] ED Physical Exam - General Limitations: No Limitations General appearance: alert, in distress - Head Head exam: Present: atraumatic, normocephalic - Eye Eye exam: Present: normal appearance, PERRL, EOMI - ENT ENT exam: Present: mucous membranes moist - Neck Neck exam: Present: normal inspection - Respiratory Respiratory exam: Present: respiratory distress, wheezes, accessory muscle use, decreased breath sounds. Absent: normal lung sounds bilaterally, rales, rhonchi - Cardiovascular Cardiovascular Exam: Present: normal rhythm, tachycardia, normal heart sounds. Absent: systolic murmur, diastolic murmur, rubs, gallop - GI/Abdominal GI/Abdominal exam: Present: soft, normal bowel sounds. Absent: distended, tenderness, guarding, rebound - Extremities Exam Extremities exam: Present: normal inspection - Back Exam Back exam: Present: normal inspection - Neurological Exam Neurological exam: Present: alert, oriented X3 - Psychiatric Psychiatric exam: Present: normal affect, normal mood - Skin Skin exam: Present: warm, dry, intact, normal color. Absent: rash ED Course Vital Signs 04/09/20 19:16 Temperature 98.8 F Pulse Rate 117 H Respiratory 24 Rate Blood Pressure 150/90 O2 Sat by Pulse 98 Oximetry ED Medical Decision Making - Lab Data Result diagrams: 04/09/20 19:41 04/09/20 19:41 - Radiology Data [facility] [address] [place] [address] XRay Report Signed Patient: RONY SHARPE MR#: [id number] : 1970 Acct:[id number] Age/Sex: 49 / F ADM Date: 04/09/20 Loc: ED Attending Dr: Ordering Physician: MELLO LÓPEZ MD Date of Service: 04/09/20 Procedure(s): XR chest 1V ap Accession Number(s): [id number] cc: MELLO LÓPEZ MD Fluoro Time In Minutes: CHEST 1 VIEW INDICATION: Chest Pain. COMPARISON: 03/20/2020 FINDINGS: Support devices: None. Heart: Within normal limits. Lungs/Pleura: No acute air space or interstitial disease. Additional findings: None. IMPRESSION: 1. No acute findings. Signer Name: Michael Pérez MD Signed: 04/09/2020 7:46 PM Workstation Name: [id number] - Medical Decision Making After an hour-long neb treatment the patient is still wheezing with tight lung sounds. Patient be admitted to the hospitalist service for observation. Critical Care Time: Yes (30) Critical care attestation.: If time is entered above; I have spent that time in minutes in the direct care of this critically ill patient, excluding procedure time. ED Disposition Clinical Impression: Acute asthma exacerbation Qualifiers: Asthma severity: moderate Asthma persistence: persistent Qualified Code(s): J45.41 - Moderate persistent asthma with (acute) exacerbation Disposition: 09 OP ADMIT IP TO THIS HOSP Is pt being admited?: Yes Does the pt Need Aspirin: No Condition: Stable Referrals: PRIMARY CARE, [Primary Care Provider] - 3-5 Days Time of Disposition: 21:46
--- NOTE | 2020-04-09 22:31 | History and Physical Report ---
History of Present Illness History of present illness: 49-year-old woman with a history of asthma, history of intubation x5, hypertension comes to emergency room with complaints of shortness of breath. Patient states she saw her primary care physician Thursday, she was wearing a mask, she felt as if she was suffocating. When she got home she did a nebulizer treatment with improvement in her symptoms. She started having shortness of breath on Thursday and Thursday intermittently and today her symptoms worsened, not controlled with nebulizer treatment so she came to the emergency room for evaluation. In the emergency room she was given steroids, nebulizer treatments. Patient will be admitted for asthma exacerbation PAST MEDDICAL HISTORY:asthma, history of intubation x5, hypertension PAST SURGICAL HISTORY: Tubal ligation SOCIAL HISTORY: Denies alcohol, tobacco, drugs FAMILY HISTORY: Hypertension Medications and Allergies Allergies Allergy/AdvReac Type Severity Reaction Status Date / Time wheat Allergy Unknown Verified 11/11/19 13:04 Home Medications Medication Instructions Recorded Confirmed Last Taken Type Albuterol INH(or & Nicu Only) 2 puff IH Q4H PRN 30 Days 03/23/20 Unknown Rx [ProAir HFA Inhaler] Budesonide/Formoterol Fumarate 10.2 gm IH BID #1 hfa.aer.ad 03/23/20 Unknown Rx [Symbicort 160-4.5 Mcg Inhaler] Ipratropium/Albuterol Sulfate 1 ampul IH Q6HRT #30 ampul.neb 03/23/20 Unknown Rx [DUONEB *Not for PRN Use*] Montelukast [Singulair] 1 mg PO QPM #30 03/23/20 Unknown Rx amLODIPine 5 mg PO DAILY #30 tab 03/23/20 Unknown Rx levoFLOXacin [Levaquin TAB] 500 mg PO Q24HR #7 tablet 03/23/20 Unknown Rx methylPREDNISolone [Medrol 4MG 4 mg PO DAILY #1 tab.ds.pk 03/23/20 Unknown Rx DOSEPAK (21 tabs)] Exam - Physical Exam Narrative exam: Gen. appearance: Patient lying in bed, no apparent distress HEENT: Normocephalic, atraumatic, pupils equally round and reactive to light, extraocular movement intact, and no sclericterus,. No JVD or thyromegaly or nodule,neck supple, no carotid bruit ,mucous membranes moist, no exudate or erythema Heart: S1, S2, regular rate and rhythm Lungs: Wheezing bilaterally, breathing comfortable Abdomen: Positive bowel sounds, nontender, nondistended, no organomegaly Extremity: no edema, cyanosis, clubbing Skin: No rash, nodules, warm, dry Neuro: Cranial nerves II through XII intact, speech is fluent, moves extremities, sensory intact - Constitutional Vitals: Temp Pulse Resp BP Pulse Ox 98.8 F 113 H 20 150/90 98 04/09/20 19:16 04/09/20 22:17 04/09/20 22:17 04/09/20 19:16 04/09/20 19:16 HEART Score - HEART Score Troponin: Troponin T < 0.010 ng/mL (0.00-0.029) 04/09/20 19:41 Results - Labs CBC & Chem 7: 04/09/20 19:41 04/09/20 19:41 Labs: Abnormal lab results 04/09/20 04/09/20 Range/Units 19:41 19:41 MCH 27 L (28-32) pg RDW 15.5 H (13.2-15.2) % Seg Neuts % (Manual) 91.0 H (40.0-70.0) % Lymphocytes % (Manual) 8.0 L (13.4-35.0) % Seg Neutrophils # Man 8.2 H (1.8-7.7) K/mm3 Lymphocytes # (Manual) 0.7 L (1.2-5.4) K/mm3 Glucose 137 H (65-100) mg/dL - Imaging and Cardiology Chest x-ray: report reviewed Assessment and Plan Asthma exacerbation Start high-dose IV steroids, nebulizer treatment ABG is pending Hypertension Restart outpatient medications IV hydralazine for blood pressure control Start DVT prophylaxis
[2020-04-09 22:43] LABS: ABG Base Excess -3.6 mmol/L (-2.0-3.0); ABG HCO3 21.2 mmol/L (20.0-26.0); ABG Methemoglobin 0.6 % (0.0-1.5); ABG Oxygen Saturation 96.6 % (95.0-99.0); ABG PCO2 37.2 mm Hg; ABG PH 7.373 pH Units (7.350-7.450); ABG PO2 81.5 mm Hg (80.0-90.0)
[2020-04-09] MEDS ORDERED: ONDANSETRON 4 MG/2 ML INJ IV PRN (22:47)
[2020-04-09] MEDS ORDERED: ACETAMINOPHEN 325 MG TAB PO PRN (22:47)
[2020-04-10] MEDS: IPRATROPIUM/ALBUTEROL SULFATE 3 ML AMPUL.NEB IH SCH ×4 (03:34→20:39)
[2020-04-10 04:34] LABS: Hematocrit 40.4 % (30.3-42.9); Hemoglobin 12.9 gm/dl (10.1-14.3); Mean Corpuscular HGB Conc 32 % (30-34); Mean Corpuscular Volume 86 fl (79-97); Platelet Count 224 K/mm3 (140-440); Red Blood Count 4.68 M/mm3 (3.65-5.03); Red Cell Distribution Width 15.4 % (13.2-15.2)
[2020-04-10 04:45] LABS: BUN/Creatinine Ratio 11; Blood Urea Nitrogen 9 mg/dL (7-17); Calcium 9.2 mg/dL (8.4-10.2); Hemolysis Index 45
[2020-04-10] MEDS ORDERED: methylPREDNISolone Sod Succinate 125 MG/2 ML INJ ONE ×2 (04:46→07:37)
[2020-04-10] MEDS: methylPREDNISolone Sod Succinate 125 MG/2 ML INJ IV SCH ×4 (04:46→21:15)
[2020-04-10 05:23] LABS: Basophils % (Manual) 0 % (0.0-1.8); Eosinophils % (Manual) 0 % (0.0-4.3); Monocytes % (Manual) 0 % (0.0-7.3); Total Cells Counted 100
[2020-04-10 05:24] LABS: Platelet Estimate Consistent w Auto
[2020-04-10] MEDS ORDERED: hydrALAZINE 20 MG/1 ML INJ ONE ×2 (06:22→07:37)
[2020-04-10] MEDS: hydrALAZINE 20 MG/1 ML INJ IV PRN ×2 (06:26→07:42)
[2020-04-10] MEDS ORDERED: ALBUTEROL 2.5 MG/3 ML NEBU IH ONE (07:17)
[2020-04-10] MEDS ORDERED: IPRATROPIUM/ALBUTEROL SULFATE 3 ML AMPUL.NEB IH ONE (07:39)
[2020-04-10] MEDS: ENOXAPARIN 40 MG/0.4 ML INJ SUB-Q SCH (11:09)
--- NOTE | 2020-04-11 00:56 | Progress Note ---
Assessment and Plan - Patient Problems (1) Acute exacerbation of COPD with asthma Current Visit: No Status: Acute Plan to address problem: Improved Still tachypneic but improving (2) Acute respiratory failure with hypoxia Current Visit: No Status: Acute Plan to address problem: Improved Still tachypneic Wheezing a lot (3) HTN (hypertension) Current Visit: No Status: Chronic Qualifiers: Hypertension type: essential hypertension Qualified Code(s): I10 - Essential (primary) hypertension Plan to address problem: Continue antihypertensives (4) DVT prophylaxis Current Visit: No Status: Acute Plan to address problem: On heparin and GI prophylaxis Subjective Date of service: 04/10/20 Principal diagnosis: Asthma exacerbation, acute respiratory failure with hypoxia Interval history: 49-year-old woman with a history of asthma, history of intubation x5, hypertension comes to emergency room with complaints of shortness of breath. Patient states she saw her primary care physician Thursday, she was wearing a mask, she felt as if she was suffocating. When she got home she did a nebulizer treatment with improvement in her symptoms. She started having shortness of breath on Thursday and Thursday intermittently and today her symptoms worsened, not controlled with nebulizer treatment so she came to the emergency room for evaluation. In the emergency room she was given steroids, nebulizer treatments. Patient will be admitted for asthma exacerbation. Patient tachypneic at the time of admission and wheezing and not responding to outpatient treatment. Patient wheezing and the patient is very tachypneic. Respiratory rate is about about 20-22. ] Afebrile ] Objective - Constitutional Vitals: Vital Signs - 12hr 04/10/20 04/10/20 04/10/20 16:10 16:27 20:00 Temperature 98.2 F Pulse Rate 113 H Pulse Rate [ 112 H 116 H Anterior Throughout] Pulse Rate [ 114 H 116 H Posterior Throughout] Respiratory 18 Rate Respiratory 18 18 Rate [Anterior Throughout] Respiratory 20 20 Rate [Posterior Throughout] Blood Pressure 142/79 O2 Sat by Pulse 100 Oximetry 04/10/20 04/10/20 04/10/20 20:07 20:38 23:05 Temperature 98.4 F 98.0 F Pulse Rate 107 H 116 H Pulse Rate [ Anterior Throughout] Pulse Rate [ Posterior Throughout] Respiratory 18 20 Rate Respiratory Rate [Anterior Throughout] Respiratory Rate [Posterior Throughout] Blood Pressure 141/72 151/83 O2 Sat by Pulse 96 100 93 Oximetry General appearance: Present: mild distress, well-nourished - EENT Eyes: PERRL, EOM intact ENT: hearing intact, clear oral mucosa Ears: bilateral: normal - Neck Neck: supple, normal ROM - Respiratory Respiratory effort: normal Respiratory: bilateral: CTA, negative: rhonchi, wheezing (Tachypneic 22-24) - Breasts Breasts: normal - Cardiovascular Rhythm: regular Heart Sounds: Present: S1 & S2. Absent: gallop, rub Extremities: pulses intact, No edema, normal color, Full ROM - Gastrointestinal General gastrointestinal: Present: soft, non-tender, non-distended, normal bowel sounds - Genitourinary Female genitourinary: normal - Integumentary Integumentary: clear, warm, dry - Musculoskeletal Musculoskeletal: 1, strength equal bilaterally - Neurologic Neurologic: moves all extremities - Psychiatric Psychiatric: memory intact, appropriate mood/affect, intact judgment & insight - Labs CBC & Chem 7: 04/10/20 04:12 04/10/20 04:12 Labs: Abnormal lab results 04/10/20 04/10/20 Range/Units 04:12 04:12 RDW 15.4 H (13.2-15.2) % Seg Neuts % (Manual) 96.0 H (40.0-70.0) % Lymphocytes % (Manual) 4.0 L (13.4-35.0) % Seg Neutrophils # Man 9.7 H (1.8-7.7) K/mm3 Lymphocytes # (Manual) 0.4 L (1.2-5.4) K/mm3 Sodium 136 L (137-145) mmol/L Carbon Dioxide 20 L (22-30) mmol/L Glucose 202 H (65-100) mg/dL HEART Score - HEART Score Troponin: Troponin T < 0.010 ng/mL (0.00-0.029) 04/09/20 19:41
[2020-04-11] MEDS: IPRATROPIUM/ALBUTEROL SULFATE 3 ML AMPUL.NEB IH SCH ×4 (01:29→21:35)
[2020-04-11] MEDS: methylPREDNISolone Sod Succinate 125 MG/2 ML INJ IV SCH ×4 (02:55→21:13)
[2020-04-11] MEDS: ENOXAPARIN 40 MG/0.4 ML INJ SUB-Q SCH (08:59)
[2020-04-12] MEDS: methylPREDNISolone Sod Succinate 125 MG/2 ML INJ IV SCH ×2 (02:24→11:09)
[2020-04-12] MEDS: IPRATROPIUM/ALBUTEROL SULFATE 3 ML AMPUL.NEB IH SCH ×3 (03:18→14:03)
[2020-04-12] MEDS: ENOXAPARIN 40 MG/0.4 ML INJ SUB-Q SCH (11:09)
[2020-04-12 16:36] VITALS: BP 122/70
--- NOTE | 2020-04-12 17:25 | Progress Note ---
Assessment and Plan - Patient Problems (1) Acute respiratory failure with hypoxia Current Visit: No Status: Acute Plan to address problem: Improved Still tachypneic Wheezing a lot (2) Acute exacerbation of COPD with asthma Current Visit: No Status: Acute Plan to address problem: Improved Still tachypneic (3) HTN (hypertension) Current Visit: No Status: Chronic Qualifiers: Hypertension type: essential hypertension Qualified Code(s): I10 - Essential (primary) hypertension Plan to address problem: Continue antihypertensives (4) DVT prophylaxis Current Visit: No Status: Acute Plan to address problem: Continue heparin 5000 every 12 Subjective Date of service: 04/10/20 Principal diagnosis: Asthma exacerbation, tachypnea Interval history: 49-year-old woman with a history of asthma, history of intubation x5, hypertension comes to emergency room with complaints of shortness of breath. Patient states she saw her primary care physician Thursday, she was wearing a mask, she felt as if she was suffocating. When she got home she did a nebulizer treatment with improvement in her symptoms. She started having shortness of breath on Thursday and Thursday intermittently and today her symptoms worsened, not controlled with nebulizer treatment so she came to the emergency room for evaluation. In the emergency room she was given steroids, nebulizer treatments. Patient will be admitted for asthma exacerbation. Patient tachypneic at the time of admission and wheezing and not responding to outpatient treatment. Patient wheezing and the patient is very tachypneic. Respiratory rate is about 24-26. ] Objective - Constitutional Vitals: Vital Signs - 12hr 04/12/20 04/12/20 04/12/20 07:28 10:00 12:28 Temperature 97.6 F 98.7 F Pulse Rate 91 H 114 H 99 H Pulse Rate [ 87 Left Radial] Pulse Rate [ 87 Right Radial] Respiratory 18 20 17 Rate Blood Pressure 138/74 134/71 O2 Sat by Pulse 99 99 98 Oximetry 04/12/20 16:34 Temperature 98.2 F Pulse Rate 86 Pulse Rate [ Left Radial] Pulse Rate [ Right Radial] Respiratory 18 Rate Blood Pressure 122/70 O2 Sat by Pulse 99 Oximetry General appearance: Present: no acute distress, well-nourished - EENT Eyes: PERRL, EOM intact ENT: hearing intact, clear oral mucosa Ears: bilateral: normal - Neck Neck: supple, normal ROM - Respiratory Respiratory effort: normal Respiratory: bilateral: CTA - Breasts Breasts: normal - Cardiovascular Heart rate: 102 Rhythm: regular Heart Sounds: Present: S1 & S2. Absent: gallop, rub Extremities: no ischemia, pulses intact, No edema, normal color, Full ROM - Gastrointestinal General gastrointestinal: Present: deferred, soft, non-tender, non-distended, normal bowel sounds - Genitourinary Female genitourinary: normal - Integumentary Integumentary: clear, warm, dry - Musculoskeletal Musculoskeletal: 1, strength equal bilaterally - Neurologic Neurologic: moves all extremities - Psychiatric Psychiatric: memory intact, appropriate mood/affect, intact judgment & insight - Labs CBC & Chem 7: 04/10/20 04:12 04/10/20 04:12 - Imaging and cardiology Chest x-ray: report reviewed HEART Score - HEART Score Troponin: Troponin T < 0.010 ng/mL (0.00-0.029) 04/09/20 19:41
--- NOTE | 2020-04-12 17:40 | Discharge Summary ---
Providers - Providers Date of Admission: 04/09/20 22:30 Date of discharge: 04/12/20 Attending physician: FENG NAVARRETE Primary care physician: KALEIGH JONES MD Hospitalization Condition: Stable Hospital course: Patient admitted with asthma exacerbation and severe tachypnea and hypoxia initially., Patient was severely wheezing and tachypneic and cough productive of mucoid to yellow sputum. Patient's tachypnea improved on by 04/12/2020 Discharge diagnosis asthma exacerbation not responding to outpatient treatment Acute respiratory failure with hypoxia on day 1 Hypertension Obesity. 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 Disposition: - TO HOME OR SELFCARE - Discharge Diagnoses (1) Acute exacerbation of COPD with asthma Status: Acute (2) Acute respiratory failure with hypoxia Status: Acute (3) HTN (hypertension) Status: Chronic Qualifiers: Hypertension type: essential hypertension Qualified Code(s): I10 - Essential (primary) hypertension (4) DVT prophylaxis Status: Acute Core Measure Documentation - Palliative Care Palliative Care/ Comfort Measures: Not Applicable - Core Measures Any of the following diagnoses?: none Exam - Constitutional Vitals: Temp Pulse Resp BP Pulse Ox 98.2 F 86 18 122/70 99 04/12/20 16:34 04/12/20 16:34 04/12/20 16:34 04/12/20 16:34 04/12/20 16:34 General appearance: Present: no acute distress, well-nourished - EENT Eyes: Present: PERRL ENT: hearing intact, clear oral mucosa - Neck Neck: Present: supple, normal ROM - Respiratory Respiratory effort: normal Respiratory: bilateral: CTA - Cardiovascular Heart rate: 72 Rhythm: regular (72) Heart Sounds: Present: S1 & S2. Absent: rub, click - Extremities Extremities: pulses symmetrical, No edema Peripheral Pulses: within normal limits - Abdominal General gastrointestinal: Present: soft, non-tender, non-distended, normal bowel sounds Female genitourinary: Present: normal - Integumentary Integumentary: Present: clear, warm, dry - Musculoskeletal Musculoskeletal: gait normal, strength equal bilaterally - Psychiatric Psychiatric: appropriate mood/affect, intact judgment & insight - Neurologic Neurologic: CNII-XII intact, moves all extremities Plan Activity: no restrictions Diet: low salt Follow up with: KALEIGH JONES MD [Primary Care Provider] - 3-5 Days MARIA L GARCÍA MD [Staff Physician] - 7 Days
== END 2020-04-12 20:01 | disposition home or self-care (01) | DRG 189 ==
LOC: ED 18:46 → 4A 22:30
PROVIDERS: ADMIT Internal Medicine; ATTEND Internal Medicine
PROC: 4A033R1 Measurement of Arterial Saturation, Peripheral, Percutaneous Approach (ICD-10-PCS; principal; 2020-04-09)
DX: J96.01 Acute respiratory failure with hypoxia (principal); J45.901 Unspecified asthma with (acute) exacerbation; I10 Essential (primary) hypertension; E66.9 Obesity, unspecified; Z68.39 Body mass index [BMI] 39.0-39.9, adult; Z98.51 Tubal ligation status; Z82.49 Family history of ischemic heart disease and other diseases of the circulatory system; Z79.899 Other long term (current) drug therapy
CPT/HCPCS: 36415; 36600; 71045; 80048; 82803; 84484; 85007; 85025; 93005; 94640; 94644; 94760; G0378; J0360; J1650; J2930

== ENCOUNTER 2020-05-08 20:42 | Observation (INO) | payer MEDICARE ==
--- NOTE | 2020-05-08 20:54 | Emergency Department Report ---
ED Asthma HPI - General Chief Complaint: Dyspnea/Respdistress Stated Complaint: DINA Time Seen by Provider: 05/08/20 20:48 Source: patient, EMS Mode of arrival: Stretcher Limitations: No Limitations - History of Present Illness Initial Comments: Mrs. Lee is a 49-year-old female with history of severe persistent asthma, history of 5 intubations, obstructive sleep apnea, hypertension, GERD, obesity who presents with severe shortness of breath wheezing which began suddenly after cooking. She was treated with IV magnesium, Solu-Medrol, albuterol 7.5 mg per EMS. Mrs. Lee has had 3 hospitalizations thus far this year for asthma. She had 4 hospitalizations at this hospital last year for asthma. 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 La. Complaint: "asthma attack", shortness of breath, wheezing -: Sudden, This evening Asthma History: history of frequent attac, history of prior ED visit, previously intubated, followed by specialist Severity: severe Context: other (Possible smoke exposure while cooking) Treatments Prior to Arrival: inhaled bronchodilator, IV steroid, other (IV magnesium) - Related Data Previous Rx's Medication Instructions Recorded Last Taken Type Albuterol INH(or & Nicu Only) 2 puff IH Q4H PRN 30 Days 03/23/20 Unknown Rx [ProAir HFA Inhaler] Budesonide/Formoterol Fumarate 10.2 gm IH BID #1 hfa.aer.ad 03/23/20 Unknown Rx [Symbicort 160-4.5 Mcg Inhaler] Ipratropium/Albuterol Sulfate 1 ampul IH Q6HRT #30 ampul.neb 03/23/20 Unknown Rx [DUONEB *Not for PRN Use*] Montelukast [Singulair] 1 mg PO QPM #30 03/23/20 Unknown Rx amLODIPine 5 mg PO DAILY #30 tab 03/23/20 Unknown Rx levoFLOXacin [Levaquin TAB] 750 mg PO Q24HR #7 tablet 04/12/20 Unknown Rx methylPREDNISolone [Medrol 4MG 4 mg PO DAILY #1 tab.ds.pk 04/12/20 Unknown Rx DOSEPAK (21 tabs)] Allergies Allergy/AdvReac Type Severity Reaction Status Date / Time wheat Allergy Unknown Verified 11/11/19 13:04 ED Review of Systems ROS: Stated complaint: DINA Other details as noted in HPI Comment: All other systems reviewed and negative Constitutional: denies: fever, malaise Respiratory: shortness of breath, wheezing Cardiovascular: denies: chest pain Gastrointestinal: denies: abdominal pain, nausea, vomiting ED Past Medical Hx - Past Medical History Previous Medical History?: Yes Hx Hypertension: Yes Hx Heart Attack/AMI: No Hx Congestive Heart Failure: No Hx Diabetes: No Hx Deep Vein Thrombosis: No Hx Pulmonary Embolism: No Hx Asthma: Yes Hx COPD: No Hx Tuberculosis: No Hx HIV: No Additional medical history: (5) previous intubations due to asthma complications - Surgical History Hx Coronary Stent: No Hx Open Heart Surgery: No Hx Pacemaker: No Hx Internal Defibrillator: No Hx Cholecystectomy: No Hx Appendectomy: No Hx Breast Surgery: No Additional Surgical History: tubal ligation - Social History Smoking Status: Never Smoker Substance Use Type: None - Medications Home Medications: Home Medications Medication Instructions Recorded Confirmed Last Taken Type Albuterol INH(or & Nicu Only) 2 puff IH Q4H PRN 30 Days 03/23/20 04/10/20 Unknown Rx [ProAir HFA Inhaler] Budesonide/Formoterol Fumarate 10.2 gm IH BID #1 hfa.aer.ad 03/23/20 04/10/20 Unknown Rx [Symbicort 160-4.5 Mcg Inhaler] Ipratropium/Albuterol Sulfate 1 ampul IH Q6HRT #30 ampul.neb 03/23/20 04/10/20 Unknown Rx [DUONEB *Not for PRN Use*] Montelukast [Singulair] 1 mg PO QPM #30 03/23/20 04/10/20 Unknown Rx amLODIPine 5 mg PO DAILY #30 tab 03/23/20 04/10/20 Unknown Rx levoFLOXacin [Levaquin TAB] 750 mg PO Q24HR #7 tablet 04/12/20 Unknown Rx methylPREDNISolone [Medrol 4MG 4 mg PO DAILY #1 tab.ds.pk 04/12/20 Unknown Rx DOSEPAK (21 tabs)] ED Physical Exam - General Limitations: No Limitations General appearance: alert, in distress (Severe work of breathing nonverbal uses hands to communicate) - Head Head exam: Present: atraumatic, normocephalic - Eye Eye exam: Present: normal appearance - ENT ENT exam: Present: mucous membranes moist - Neck Neck exam: Present: normal inspection, full ROM - Respiratory Respiratory exam: Present: respiratory distress, wheezes, accessory muscle use, decreased breath sounds, prolonged expiratory. Absent: rales, rhonchi, stridor, chest wall tenderness - Cardiovascular Cardiovascular Exam: Present: regular rate, normal rhythm, normal heart sounds. Absent: systolic murmur, diastolic murmur, rubs, gallop - GI/Abdominal GI/Abdominal exam: Present: soft, normal bowel sounds. Absent: distended, tenderness, guarding, rebound - Extremities Exam Extremities exam: Present: normal inspection - Neurological Exam Neurological exam: Present: alert, oriented X3 - Psychiatric Psychiatric exam: Present: normal affect, normal mood - Skin Skin exam: Present: warm, dry, intact, normal color. Absent: rash ED Course Vital Signs 05/08/20 05/08/20 05/08/20 21:00 21:02 21:16 Pulse Rate 126 H 122 H Pulse Rate [ 117 H Posterior Bilateral Throughout] Respiratory 23 18 Rate Respiratory 20 Rate [Posterior Bilateral Throughout] Blood Pressure 147/76 O2 Sat by Pulse Oximetry 05/08/20 05/08/20 05/08/20 21:30 21:46 22:00 Pulse Rate 134 H 136 H Pulse Rate [ 130 H Posterior Bilateral Throughout] Respiratory 19 20 Rate Respiratory 18 Rate [Posterior Bilateral Throughout] Blood Pressure 147/76 147/76 O2 Sat by Pulse Oximetry 05/08/20 05/08/20 05/08/20 22:15 22:55 23:35 Pulse Rate 133 H Pulse Rate [ 135 H 133 H Posterior Bilateral Throughout] Respiratory 24 Rate Respiratory 20 20 Rate [Posterior Bilateral Throughout] Blood Pressure O2 Sat by Pulse 100 Oximetry - Reevaluation(s) Reevaluation #1: 05/08/20 22:17 I came to the bedside for patient severe work of breathing. Patient was unable to tolerate noninvasive positive pressure ventilation due to temperature. I emergency Tory therapist elected to treat patient with continuous albuterol Atrovent nebulizer therapy with oxygen. I was at the bedside for 30 minutes coaching patient and watching patient. I asked nurse to give 0.5 mg IV lorazepam. ED Medical Decision Making - Lab Data Result diagrams: 05/08/20 22:37 05/08/20 22:37 - Radiology Data Radiology results: report reviewed Chest radiograph without acute findings. - Medical Decision Making Status asthmaticus: Patient required multiple interventions and reassessments. I closed the patient at the bedside for a total of 30 minutes. I was concerned for impending respiratory failure and airway compromise. After 27 mg total of albuterol IV steroids IV magnesium patient was able to finally tolerate noninvasive positive ambulation. IV lorazepam 0.5 mg appeared to help patient. Critical Care Time: Yes Critical care time in (mins) excluding proc time.: 40 Critical care attestation.: If time is entered above; I have spent that time in minutes in the direct care of this critically ill patient, excluding procedure time. 40 minutes of critical care time excluding procedures were used in the care of the patient. I reviewed electronic record. I discussed treatment plan with the nursing team members at the bedside. I came immediately to the bedside. I obtained history from paramedics. Patient required multiple interventions and reassessments. I was concerned for impending respiratory failure considering patient's previous 5 intubations. ED Disposition Clinical Impression: Acute respiratory failure, Status asthmaticus Disposition: OP ADMIT IP TO THIS HOSP Is pt being admited?: Yes Does the pt Need Aspirin: No Condition: Fair
[2020-05-08] MEDS ORDERED: ALBUTEROL 2.5 MG/3 ML NEBU IH ONE ×2 (21:05→22:01)
[2020-05-08] MEDS ORDERED: IPRATROPIUM 0.02% NEBU 2.5 ML IH ONE ×2 (21:06→22:01)
[2020-05-08] MEDS ORDERED: LORazepam 2 MG/ML VIAL IV ONE (22:16)
[2020-05-08 23:00] LABS: Hematocrit 40.4 % (30.3-42.9); Hemoglobin 12.7 gm/dl (10.1-14.3); Mean Corpuscular HGB Conc 32 % (30-34); Mean Corpuscular Volume 87 fl (79-97); Platelet Count 245 K/mm3 (140-440); Red Blood Count 4.64 M/mm3 (3.65-5.03)
--- NOTE | 2020-05-08 23:09 | XRay Report ---
CHEST 1 VIEW 05/08/2020 9:49 PM INDICATION / CLINICAL INFORMATION: dyspnea. COMPARISON: Chest x-ray 04/09/2020 FINDINGS: SUPPORT DEVICES: None. HEART / MEDIASTINUM: No significant abnormality. LUNGS / PLEURA: No significant pulmonary or pleural abnormality. No pneumothorax. ADDITIONAL FINDINGS: No significant additional findings. IMPRESSION: 1. No acute findings. Signer Name: Eric Gamboa MD Signed: 05/08/2020 11:04 PM Workstation Name: [id number]
[2020-05-08 23:22] LABS: BUN/Creatinine Ratio 10; Blood Urea Nitrogen 8 mg/dL (7-17); Hemolysis Index 8
[2020-05-08 23:32] LABS: Basophils % (Manual) 0 % (0.0-1.8); Eosinophils % (Manual) 0 % (0.0-4.3); Platelet Estimate Consistent w Auto; RBC Morphology Normal; Total Cells Counted 100
--- NOTE | 2020-05-09 00:13 | History and Physical Report ---
History of Present Illness Date of examination: 05/09/20 Date of admission: 05/08/2020 Chief complaint: Shortness of breath History of present illness: 49-year-old female with history of severe persistent asthma presenting today complaining of shortness of breath and wheezing which started after doing some cooking today. Patient has has known history of 5 intubations, obstructive sleep apnea, hypertension and GERD. She denies any chest pain, no fever or chills, no nausea vomiting, no headache or dizziness. She also given some IV magnesium, Solu-Medrol and albuterol by EMS with some improvement. . Patient follows up with Dr. La who is her social service technician. Upon arrival in the emergency room she was in some respiratory distress and subsequently placed on BiPAP. Work-up in the emergency room reveals leukocytosis, chest x-ray was unremarkable. Past History Past Medical History: hyperlipidemia, other (Asthma) Past Surgical History: Other (5 intubations in the past, tubal ligation) Social history: no significant social history Medications and Allergies Allergies Allergy/AdvReac Type Severity Reaction Status Date / Time wheat Allergy Unknown Verified 11/11/19 13:04 Home Medications Medication Instructions Recorded Confirmed Last Taken Type Albuterol INH(or & Nicu Only) 2 puff IH Q4H PRN 30 Days 03/23/20 05/09/20 1 Day Ago Rx [ProAir HFA Inhaler] ~05/08/20 Budesonide/Formoterol Fumarate 10.2 gm IH BID #1 hfa.aer.ad 03/23/20 05/09/20 1 Day Ago Rx [Symbicort 160-4.5 Mcg Inhaler] ~05/08/20 Ipratropium/Albuterol Sulfate 1 ampul IH Q6HRT #30 ampul.neb 03/23/20 05/09/20 1 Day Ago Rx [DUONEB *Not for PRN Use*] ~05/08/20 Montelukast [Singulair] 1 mg PO QPM #30 03/23/20 05/09/20 1 Day Ago Rx ~05/08/20 amLODIPine 5 mg PO DAILY #30 tab 03/23/20 05/09/20 1 Day Ago Rx ~05/08/20 Famotidine [Acid Controller] 10 mg PO DAILY 05/09/20 05/09/20 1 Day Ago History ~05/08/20 Fluticasone [Flonase] 2 puff PO DAILY 05/09/20 05/09/20 1 Day Ago History ~05/08/20 Fluticasone/Vilanterol [Breo 05/09/20 Unknown History Ellipta 200-25 Mcg INH] Mepolizumab [Nucala] 1 syr IJ QMONTH 05/09/20 05/09/20 1 Month Ago History ~04/08/20 Prednisone [predniSONE 10 mg 10 mg PO DAILY 05/09/20 05/09/20 1 Day Ago History (6-Day Pack, 21 Tabs)] ~05/08/20 Review of Systems Constitutional: no fever, no chills Cardiovascular: no chest pain, no syncope Respiratory: shortness of breath, no cough Gastrointestinal: no abdominal pain, no nausea, no vomiting, no diarrhea, no hematochezia Genitourinary Female: no pelvic pain, no flank pain, no dysuria, no hematuria Musculoskeletal: no neck pain, no low back pain Integumentary: no rash, no pruritis Neurological: no syncope, no headaches, no confusion Psychiatric: no anxiety, no depression Exam - Constitutional Vitals: Temp Pulse Resp BP Pulse Ox 133 H 20 147/76 100 05/08/20 23:35 05/08/20 23:35 05/08/20 21:46 05/08/20 22:55 General appearance: Present: no acute distress, mild distress (On BiPAP), well-nourished - EENT Eyes: Present: PERRL, EOM intact. Absent: scleral icterus ENT: hearing intact, clear oral mucosa, dentition normal - Neck Neck: Present: supple, normal ROM - Respiratory Respiratory effort: normal Respiratory: bilateral: wheezing - Cardiovascular Rhythm: regular Heart Sounds: Present: S1 & S2. Absent: gallop, systolic murmur, diastolic murmur - Extremities Extremities: no ischemia, pulses intact, pulses symmetrical, No edema, Full ROM Peripheral Pulses: within normal limits - Abdominal General gastrointestinal: Present: soft, non-tender, non-distended, normal bowel sounds. Absent: mass - Integumentary Integumentary: Present: clear, warm, dry - Musculoskeletal Musculoskeletal: strength equal bilaterally - Psychiatric Psychiatric: appropriate mood/affect, intact judgment & insight, memory intact, cooperative - Neurologic Neurologic: CNII-XII intact, moves all extremities Results - Labs CBC & Chem 7: 05/08/20 22:37 05/08/20 22:37 Labs: Abnormal lab results 05/08/20 05/08/20 Range/Units 22:37 22:37 WBC 12.8 H (4.5-11.0) K/mm3 MCH 27 L (28-32) pg Seg Neuts % (Manual) 94.0 H (40.0-70.0) % Lymphocytes % (Manual) 4.0 L (13.4-35.0) % Seg Neutrophils # Man 12.0 H (1.8-7.7) K/mm3 Lymphocytes # (Manual) 0.5 L (1.2-5.4) K/mm3 Potassium 3.4 L (3.6-5.0) mmol/L Carbon Dioxide 18 L (22-30) mmol/L Glucose 180 H (65-100) mg/dL Assessment and Plan - Patient Problems (1) Asthma with acute exacerbation in adult Current Visit: No Status: Acute Plan to address problem: Patient has been placed on nebulizing treatment and IV steroid. Patient will be closely observed in the stepdown unit. We also place a consult to social service technician for further evaluation and recommendation. We will keep oxygen saturation greater or equal to 92%. (2) Hypertension Current Visit: No Status: Chronic Qualifiers: Hypertension type: essential hypertension Qualified Code(s): I10 - Essential (primary) hypertension Plan to address problem: We will resume routine home medications and monitor vital signs closely. (3) DVT prophylaxis Current Visit: No Status: Acute Plan to address problem: Patient placed on subcutaneous heparin. (4) Full code status Current Visit: No Status: Acute
[2020-05-09] MEDS ORDERED: ONDANSETRON 4 MG/2 ML INJ IV PRN (00:14)
[2020-05-09] MEDS ORDERED: MAGNESIUM HYDROXIDE (MOM) ORAL LIQD UDC PO PRN (00:14)
[2020-05-09] MEDS ORDERED: ACETAMINOPHEN 325 MG TAB PO PRN (00:14)
[2020-05-09 00:17] LABS: ABG Base Excess -3.5 mmol/L (-2.0-3.0); ABG HCO3 21.7 mmol/L (20.0-26.0); ABG Methemoglobin 0.5 % (0.0-1.5); ABG Oxygen Saturation 97.3 % (95.0-99.0); ABG PCO2 39.7 mm Hg; ABG PH 7.356 pH Units (7.350-7.450); ABG PO2 93.8 mm Hg (80.0-90.0)
[2020-05-09] MEDS: IPRATROPIUM/ALBUTEROL SULFATE 3 ML AMPUL.NEB IH SCH ×3 (02:14→13:17)
[2020-05-09] MEDS ORDERED: IPRATROPIUM/ALBUTEROL SULFATE 3 ML AMPUL.NEB IH ONE (02:15)
[2020-05-09] MEDS: HEPARIN 5,000 UNIT/1 ML VIAL SUB-Q SCH ×3 (05:59→22:09)
[2020-05-09] MEDS: methylPREDNISolone Sod Succinate 40 MG/1 ML INJ IV SCH ×3 (06:00→22:09)
--- NOTE | 2020-05-09 09:46 | Progress Note ---
Assessment and Plan Assessment and plan: --Acute exacerbation of bronchial asthma ; Current Visit: No Status: Acute Nebulizers, IV steroids, inhalation steroids Oxygen titrate O2 sats to more than 90% Pulmonary consult, supportive care Evaluation for home oxygen at discharge -- Hypertension Current Visit: No Status: Chronic Moderate control, continue current antihypertensives PRN medications -- DVT prophylaxis Current Visit: No Status: Acute Patient placed on subcutaneous heparin. --Obesity; BMI 39.4 Current Visit: No Status: Acute Patient advised weight reduction dietary modification exercise as tolerated when medically stable -- Full code status Current Visit: No Status: Acute We will closely monitor the patient and adjust the management as needed Plan of care reviewed with the patient and her nurse History Interval history: Patient seen and examined at the bedside this morning patient's chart and medications reviewed Admitted with acute exacerbation of bronchial asthma Patient feels slightly better still has some wheeze Alert awake oriented Mild distress Vital signs reviewed Hospitalist Physical - Constitutional Vitals: Temp Pulse Resp BP Pulse Ox 98.1 F 103 H 20 135/84 100 05/09/20 08:00 05/09/20 07:20 05/09/20 07:20 05/09/20 07:20 05/09/20 09:39 General appearance: Present: no acute distress, mild distress (On BiPAP), well- nourished - EENT Eyes: Present: PERRL, EOM intact - Neck Neck: Present: supple, normal ROM - Respiratory Respiratory effort: normal Respiratory: bilateral: diminished, rhonchi, wheezing, negative: rales - Cardiovascular Rhythm: regular Heart Sounds: Present: S1 & S2 (Tachycardia) - Extremities Extremities: no ischemia, No edema - Abdominal General gastrointestinal: soft, non-tender, non-distended, normal bowel sounds - Integumentary Integumentary: Present: warm - Psychiatric Psychiatric: appropriate mood/affect, cooperative - Neurologic Neurologic: moves all extremities Results - Labs CBC & Chem 7: 05/08/20 22:37 05/08/20 22:37 Labs: Laboratory Last Values WBC 12.8 K/mm3 (4.5-11.0) H 05/08/20 22:37 RBC 4.64 M/mm3 (3.65-5.03) 05/08/20 22:37 Hgb 12.7 gm/dl (10.1-14.3) 05/08/20 22:37 Hct 40.4 % (30.3-42.9) 05/08/20 22:37 MCV 87 fl (79-97) 05/08/20 22:37 MCH 27 pg (28-32) L 05/08/20 22:37 MCHC 32 % (30-34) 05/08/20 22:37 RDW 15.0 % (13.2-15.2) 05/08/20 22:37 Plt Count 245 K/mm3 (140-440) 05/08/20 22:37 Add Manual Diff Complete 05/08/20 22:37 Total Counted 100 05/08/20 22:37 Seg Neutrophils % Distribution Center Manager 05/08/20 22:37 Seg Neuts % (Manual) 94.0 % (40.0-70.0) H 05/08/20 22:37 Band Neutrophils % 0 % 05/08/20 22:37 Lymphocytes % (Manual) 4.0 % (13.4-35.0) L 05/08/20 22:37 Reactive Lymphs % (Man) 0 % 05/08/20 22:37 Monocytes % (Manual) 2.0 % (0.0-7.3) 05/08/20 22:37 Eosinophils % (Manual) 0 % (0.0-4.3) 05/08/20 22:37 Basophils % (Manual) 0 % (0.0-1.8) 05/08/20 22:37 Metamyelocytes % 0 % 05/08/20 22:37 Myelocytes % 0 % 05/08/20 22:37 Promyelocytes % 0 % 05/08/20 22:37 Blast Cells % 0 % 05/08/20 22:37 Nucleated RBC % Not Reportable 05/08/20 22:37 Seg Neutrophils # Man 12.0 K/mm3 (1.8-7.7) H 05/08/20 22:37 Band Neutrophils # 0.0 K/mm3 05/08/20 22:37 Lymphocytes # (Manual) 0.5 K/mm3 (1.2-5.4) L 05/08/20 22:37 Abs React Lymphs (Man) 0.0 K/mm3 05/08/20 22:37 Monocytes # (Manual) 0.3 K/mm3 (0.0-0.8) 05/08/20 22:37 Eosinophils # (Manual) 0.0 K/mm3 (0.0-0.4) 05/08/20 22:37 Basophils # (Manual) 0.0 K/mm3 (0.0-0.1) 05/08/20 22:37 Metamyelocytes # 0.0 K/mm3 05/08/20 22:37 Myelocytes # 0.0 K/mm3 05/08/20 22:37 Promyelocytes # 0.0 K/mm3 05/08/20 22:37 Blast Cells # 0.0 K/mm3 05/08/20 22:37 WBC Morphology Not Reportable 05/08/20 22:37 Hypersegmented Neuts Not Reportable 05/08/20 22:37 Hyposegmented Neuts Not Reportable 05/08/20 22:37 Hypogranular Neuts Not Reportable 05/08/20 22:37 Smudge Cells Not Reportable 05/08/20 22:37 Toxic Granulation Not Reportable 05/08/20 22:37 Toxic Vacuolation Not Reportable 05/08/20 22:37 Dohle Bodies Not Reportable 05/08/20 22:37 Pelger-Huet Anomaly Not Reportable 05/08/20 22:37 Elvin Rods Not Reportable 05/08/20 22:37 Platelet Estimate Consistent w auto 05/08/20 22:37 Clumped Platelets Not Reportable 05/08/20 22:37 Plt Clumps, EDTA Not Reportable 05/08/20 22:37 Large Platelets Not Reportable 05/08/20 22:37 Giant Platelets Not Reportable 05/08/20 22:37 Platelet Satelliting Not Reportable 05/08/20 22:37 Plt Morphology Comment Not Reportable 05/08/20 22:37 RBC Morphology Normal 05/08/20 22:37 Dimorphic RBCs Not Reportable 05/08/20 22:37 Polychromasia Not Reportable 05/08/20 22:37 Hypochromasia Not Reportable 05/08/20 22:37 Poikilocytosis Not Reportable 05/08/20 22:37 Anisocytosis Not Reportable 05/08/20 22:37 Microcytosis Not Reportable 05/08/20 22:37 Macrocytosis Not Reportable 05/08/20 22:37 Spherocytes Not Reportable 05/08/20 22:37 Pappenheimer Bodies Not Reportable 05/08/20 22:37 Sickle Cells Not Reportable 05/08/20 22:37 Target Cells Not Reportable 05/08/20 22:37 Tear Drop Cells Not Reportable 05/08/20 22:37 Ovalocytes Not Reportable 05/08/20 22:37 Helmet Cells Not Reportable 05/08/20 22:37 Buckner-Doctor [place] Bodies Not Reportable 05/08/20 22:37 [place] Rings Not Reportable 05/08/20 22:37 Yusra Cells Not Reportable 05/08/20 22:37 Bite Cells Not Reportable 05/08/20 22:37 Crenated Cell Not Reportable 05/08/20 22:37 Elliptocytes Not Reportable 05/08/20 22:37 Acanthocytes (Spur) Not Reportable 05/08/20 22:37 Rouleaux Not Reportable 05/08/20 22:37 Hemoglobin C Crystals Not Reportable 05/08/20 22:37 Schistocytes Not Reportable 05/08/20 22:37 Malaria parasites Not Reportable 05/08/20 22:37 Sean Bodies Not Reportable 05/08/20 22:37 Hem Pathologist Commnt No 05/08/20 22:37 ABG pH 7.356 pH Units (7.350-7.450) 05/08/20 23:41 ABG pCO2 39.7 mm Hg 05/08/20 23:41 ABG pO2 93.8 mm Hg (80.0-90.0) H 05/08/20 23:41 ABG HCO3 21.7 mmol/L (20.0-26.0) 05/08/20 23:41 ABG O2 Saturation 97.3 % (95.0-99.0) 05/08/20 23:41 ABG O2 Content 17.2 (0.0-44) 05/08/20 23:41 ABG Base Excess -3.5 mmol/L (-2.0-3.0) L 05/08/20 23:41 ABG Hemoglobin 12.8 gm/dl (12.0-16.0) 05/08/20 23:41 ABG Carboxyhemoglobin 1.5 % (0.0-5.0) 05/08/20 23:41 ABG Methemoglobin 0.5 % (0.0-1.5) 05/08/20 23:41 Oxyhemoglobin 95.4 % (95.0-99.0) 05/08/20 23:41 FiO2 30 % 05/08/20 23:41 Sodium 138 mmol/L (137-145) 05/08/20 22:37 Potassium 3.4 mmol/L (3.6-5.0) L 05/08/20 22:37 Chloride 103.2 mmol/L (98-107) 05/08/20 22:37 Carbon Dioxide 18 mmol/L (22-30) L 05/08/20 22:37 Anion Gap 20 mmol/L 05/08/20 22:37 BUN 8 mg/dL (7-17) 05/08/20 22:37 Creatinine 0.8 mg/dL (0.7-1.2) 05/08/20 22:37 Estimated GFR > 60 ml/min 05/08/20 22:37 BUN/Creatinine Ratio 10 % 05/08/20 22:37 Glucose 180 mg/dL (65-100) H 05/08/20 22:37 Calcium 9.0 mg/dL (8.4-10.2) 05/08/20 22:37 [place]/IV: Voiding Method Bedside Commode Active Medications - Current Medications Current Medications: Generic Name Dose Route Start Last Admin Trade Name Freq PRN Reason Stop Dose Admin Acetaminophen 650 mg 05/09/20 00:14 Tylenol PO Q6H PRN Pain MILD(1-3)/Fever >100.5/BOOKER Albuterol/Ipratropium 1 ampul 05/09/20 02:00 05/09/20 09:36 Duoneb *Not For Prn Use* IH Not Given Q6HRT JOSE D Heparin Sodium (Porcine) 5,000 unit 05/09/20 06:00 05/09/20 05:59 Heparin SUB-Q 5,000 unit Q8HR JOSE D Administration Magnesium Hydroxide 30 ml 05/09/20 00:14 Milk Of Magnesia PO Q4H PRN Constipation Methylprednisolone Sodium Succinate 40 mg 05/09/20 06:00 05/09/20 06:00 Solu-Medrol IV 40 mg Q8HR JOSE D Administration Ondansetron HCl 4 mg 05/09/20 00:14 Zofran IV Q8H PRN Nausea And Vomiting Sodium Chloride 10 ml 05/09/20 10:00 Sodium Chloride Flush Syringe 10 Ml IV BID JOSE D Sodium Chloride 10 ml 05/09/20 00:14 Sodium Chloride Flush Syringe 10 Ml IV PRN PRN LINE FLUSH
--- NOTE | 2020-05-09 12:49 | Consultation ---
History of Present Illness Consult date: 05/09/20 Requesting physician: CORINE RAO Reason for consult: asthma History of present illness: 49 y/o female with known asthma, well known to me admitted for asthma exacerbation. We were not consulted on the last several admissions. Patient required bipap therapy and was transitioned to the [facility]. Off bipap therapy and stable. States that she was cooking when the flare happened. Past History Past Medical History: hyperlipidemia, other (Asthma) Past Surgical History: Other (5 intubations in the past, tubal ligation) Social history: no significant social history Medications and Allergies Allergies Allergy/AdvReac Type Severity Reaction Status Date / Time wheat Allergy Unknown Verified 11/11/19 13:04 Home Medications Medication Instructions Recorded Confirmed Last Taken Type Albuterol INH(or & Nicu Only) 2 puff IH Q4H PRN 30 Days 03/23/20 05/09/20 1 Day Ago Rx [ProAir HFA Inhaler] ~05/08/20 Budesonide/Formoterol Fumarate 10.2 gm IH BID #1 hfa.[email or web address] 03/23/20 05/09/20 1 Day Ago Rx [Symbicort 160-4.5 Mcg Inhaler] ~05/08/20 Ipratropium/Albuterol Sulfate 1 ampul IH Q6HRT #30 ampul.neb 03/23/20 05/09/20 1 Day Ago Rx [DUONEB *Not for PRN Use*] ~05/08/20 Montelukast [Singulair] 1 mg PO QPM #30 03/23/20 05/09/20 1 Day Ago Rx ~05/08/20 amLODIPine 5 mg PO DAILY #30 tab 03/23/20 05/09/20 1 Day Ago Rx ~05/08/20 Famotidine [Acid Controller] 10 mg PO DAILY 05/09/20 05/09/20 1 Day Ago History ~05/08/20 Fluticasone [Flonase] 2 puff PO DAILY 05/09/20 05/09/20 1 Day Ago History ~05/08/20 Fluticasone/Vilanterol [Breo 05/09/20 Unknown History Ellipta 200-25 Mcg INH] Mepolizumab [Nucala] 1 syr IJ QMONTH 05/09/20 05/09/20 1 Month Ago History ~04/08/20 Prednisone [predniSONE 10 mg 10 mg PO DAILY 05/09/20 05/09/20 1 Day Ago History (6-Day Pack, 21 Tabs)] ~05/08/20 Active Meds: Active Medications Acetaminophen (Tylenol) 650 mg PO Q6H PRN PRN Reason: Pain MILD(1-3)/Fever >100.5/BOOKER Albuterol/Ipratropium (Duoneb *Not For Prn Use*) 1 ampul IH Q6HRT [facility] Last Admin: 05/09/20 09:36 Dose: Not Given Documented by: Heparin Sodium (Porcine) (Heparin) 5,000 unit SUB-Q Q8HR [facility] Last Admin: 05/09/20 05:59 Dose: 5,000 unit Documented by: Magnesium Hydroxide (Milk Of Magnesia) 30 ml PO Q4H PRN PRN Reason: Constipation Methylprednisolone Sodium Succinate (Solu-Medrol) 40 mg IV Q8HR [facility] Last Admin: 05/09/20 06:00 Dose: 40 mg Documented by: Ondansetron HCl (Zofran) 4 mg IV Q8H PRN PRN Reason: Nausea And Vomiting Sodium Chloride (Sodium Chloride Flush Syringe 10 Ml) 10 ml IV BID [facility] Last Admin: 05/09/20 10:28 Dose: Not Given Documented by: Sodium Chloride (Sodium Chloride Flush Syringe 10 Ml) 10 ml IV PRN PRN PRN Reason: LINE FLUSH Review of Systems All systems: negative Physical Examination Vital signs: Vital Signs Pulse Resp 117 H 20 05/08/20 21:00 05/08/20 21:00 General appearance: no acute distress, alert Eyes: non-icteric ENT: oropharynx moist Neck: supple, other (large in circumference) Effort: normal Ascultation: Bilateral: diminished breath sounds Results - Laboratory Findings CBC and BMP: 05/08/20 22:37 05/08/20 22:37 ABG ABG pH 7.356 pH Units (7.350-7.450) 05/08/20 23:41 ABG pCO2 39.7 mm Hg 05/08/20 23:41 ABG pO2 93.8 mm Hg (80.0-90.0) H 05/08/20 23:41 ABG O2 Saturation 97.3 % (95.0-99.0) 05/08/20 23:41 Abnormal lab findings: Abnormal Labs 05/08/20 05/08/20 05/08/20 22:37 22:37 23:41 WBC 12.8 H MCH 27 L Seg Neuts % (Manual) 94.0 H Lymphocytes % (Manual) 4.0 L Seg Neutrophils # Man 12.0 H Lymphocytes # (Manual) 0.5 L ABG pO2 93.8 H ABG Base Excess -3.5 L Potassium 3.4 L Carbon Dioxide 18 L Glucose 180 H - Diagnostic Findings Chest x-ray: image reviewed (no evidence of acute lung disease) Assessment and Plan 49 y/o female with persistent asthma, obesity and OBDULIA but noncompliant with OBDULIA therapy. 1. Stable for transfer to med/surge 2. Ok with current steroid dosing 3. Stop duonebs 4. Place on BID pulmicort and brovana
[2020-05-09] MEDS: BUDESONIDE 0.5 MG/2 ML NEBU IH SCH (20:48)
[2020-05-09] MEDS: ARFORMOTEROL 15 MCG/2 ML NEBU IH SCH (20:48)
[2020-05-10 05:22] LABS: Basophils % (Auto) 0.2 % (0.0-1.8); Hematocrit 38.4 % (30.3-42.9); Hemoglobin 12.1 gm/dl (10.1-14.3); Lymphocytes # (Auto) 0.8 K/mm3 (1.2-5.4); Lymphocytes % (Auto) 4.2 % (13.4-35.0); Mean Corpuscular HGB Conc 32 % (30-34); Mean Corpuscular Volume 86 fl (79-97); Monocytes # (Auto) 1.2 K/mm3 (0.0-0.8); Monocytes % (Auto) 6.2 % (0.0-7.3); Platelet Count 265 K/mm3 (140-440); Red Blood Count 4.46 M/mm3 (3.65-5.03); Red Cell Distribution Width 14.9 % (13.2-15.2)
[2020-05-10] MEDS: HEPARIN 5,000 UNIT/1 ML VIAL SUB-Q SCH (05:38)
[2020-05-10] MEDS: methylPREDNISolone Sod Succinate 40 MG/1 ML INJ IV SCH (05:38)
[2020-05-10 05:42] LABS: BUN/Creatinine Ratio 20; Blood Urea Nitrogen 18 mg/dL (7-17); Calcium 9.3 mg/dL (8.4-10.2); Hemolysis Index 3
[2020-05-10 05:44] LABS: INR 1.1 (0.87-1.13)
[2020-05-10] MEDS: BUDESONIDE 0.5 MG/2 ML NEBU IH SCH (07:53)
[2020-05-10] MEDS: ARFORMOTEROL 15 MCG/2 ML NEBU IH SCH (07:53)
--- NOTE | 2020-05-10 09:57 | Progress Note ---
Assessment and Plan 49 y/o female with persistent asthma, obesity and OBDULIA but noncompliant with OBDULIA therapy. 1. Ok with changing to Prednisone 60 daily and tapering from there as follows. 60 daily for 4 days, 40 daily for 4 days, 20 daily for 4 days then stop. 2. No abx therapy needed 3. Ok to resume home COPD regimen at discharge 4. Would have no objection with discharge today if patient feels ready to go home Subjective Date of service: 05/10/20 Interval history: No acute events. Transitioned to med surge with no issues. Sats good on 2 liters NC. Objective Vital Signs - 12hr 05/09/20 05/09/20 05/10/20 22:00 22:06 03:35 Temperature 98.4 F 98.0 F Pulse Rate 105 H 109 H 110 H Pulse Rate [ Anterior Bilateral Throughout] Respiratory 105 H 18 18 Rate Respiratory Rate [Anterior Bilateral Throughout] Blood Pressure 135/78 Blood Pressure 113/59 [Right] O2 Sat by Pulse 98 98 97 Oximetry 05/10/20 05/10/20 07:57 07:58 Temperature Pulse Rate Pulse Rate [ 110 H Anterior Bilateral Throughout] Respiratory Rate Respiratory 18 Rate [Anterior Bilateral Throughout] Blood Pressure Blood Pressure [Right] O2 Sat by Pulse 97 Oximetry Constitutional: no acute distress, alert Eyes: non-icteric ENT: oropharynx moist Neck: supple, other (large in circumference) Effort: normal Ascultation: Bilateral: diminished breath sounds CBC and BMP: 05/10/20 04:56 05/10/20 04:56 ABG, PT/INR, D-dimer: ABG ABG pH 7.356 pH Units (7.350-7.450) 05/08/20 23:41 ABG pCO2 39.7 mm Hg 05/08/20 23:41 ABG pO2 93.8 mm Hg (80.0-90.0) H 05/08/20 23:41 ABG O2 Saturation 97.3 % (95.0-99.0) 05/08/20 23:41 PT/INR, D-dimer PT 14.0 Sec. (12.2-14.9) 05/10/20 04:56 INR 1.10 (0.87-1.13) 05/10/20 04:56 Abnormal lab findings: Abnormal Labs 05/08/20 05/08/20 05/08/20 22:37 22:37 23:41 WBC 12.8 H MCH 27 L Lymph % (Auto) Lymph # Edgar # Seg Neutrophils % Seg Neuts % (Manual) 94.0 H Lymphocytes % (Manual) 4.0 L Seg Neutrophils # Seg Neutrophils # Man 12.0 H Lymphocytes # (Manual) 0.5 L ABG pO2 93.8 H ABG Base Excess -3.5 L Potassium 3.4 L Carbon Dioxide 18 L BUN Glucose 180 H 05/10/20 05/10/20 04:56 04:56 WBC 19.4 H MCH 27 L Lymph % (Auto) 4.2 L Lymph # 0.8 L Edgar # 1.2 H Seg Neutrophils % 89.4 H Seg Neuts % (Manual) Lymphocytes % (Manual) Seg Neutrophils # 17.3 H Seg Neutrophils # Man Lymphocytes # (Manual) ABG pO2 ABG Base Excess Potassium Carbon Dioxide BUN 18 H Glucose 156 H
--- NOTE | 2020-05-10 15:33 | Discharge Summary ---
Providers - Providers Date of Admission: 05/09/20 00:10 Date of discharge: 05/10/20 Attending physician: CORINE RAO 05/09/20 00:15 Consult to Dietitian/Nutrition [CONS] Routine Physician Instructions: Reason For Exam: Reason for Consult: Diet education Consult to Physician [CONS] Routine Comment: Consulting Provider: YULISSA DENG Physician Instructions: Reason For Exam: Asthma exacerbation Primary care physician: JUAN JOSÉ MCGILL Hospitalization Condition: Fair Hospital course: --Acute exacerbation of bronchial asthma ; Current Visit: No Status: Acute Nebulizers, IV steroids, inhalation steroids Oxygen titrate O2 sats to more than 90% Pulmonary consult, supportive care Evaluation for home oxygen at discharge --Acute hypoxic respiratory failure requiring BiPAP; Current Visit: No Status: Acute Present on admission, now resolved -- Hypertension Current Visit: No Status: Chronic Moderate control, continue current antihypertensives. PRN medications -- DVT prophylaxis Current Visit: No Status: Acute Patient placed on subcutaneous heparin. --Obesity; BMI 39.4 Current Visit: No Status: Acute Patient advised weight reduction dietary modification exercise as tolerated when medically stable -- Full code status Current Visit: No Status: Acute We will closely monitor the patient and adjust the management as needed Plan of care reviewed with the patient and her nurse Disposition: DC-01 TO HOME OR SELFCARE Time spent for discharge: 32 min Core Measure Documentation - Palliative Care Palliative Care/ Comfort Measures: Not Applicable - Core Measures Any of the following diagnoses?: none Exam - Constitutional Vitals: Temp Pulse Resp BP Pulse Ox 98.8 F 91 H 22 130/59 94 05/10/20 11:53 05/10/20 11:53 05/10/20 11:53 05/10/20 11:53 05/10/20 11:53 General appearance: Present: no acute distress, well-nourished Plan Activity: advance as tolerated Diet: regular Additional Instructions: Advise exercise as tolerated and weight reduction when medically stable. If you have severe shortness of breath or wheeze, contact MD or go to emergency room Follow up with: JUAN JOSÉ MCGILL MD [Primary Care Provider] - 7 Days TERRY AMBRIZ MD [Staff Physician] - 14 Days Prescriptions: predniSONE [Deltasone] 6 tab PO .TAPER #48 tab
[2020-05-10 17:43] VITALS: BP 154/81
== END 2020-05-10 18:08 | disposition home or self-care (01) ==
LOC: ED 20:42 → INTOOBSV 05-09 00:10 → IMCU 05-09 00:10 → 3A 05-09 15:38
PROVIDERS: ADMIT Internal Medicine Geriatric Medicine; ATTEND Internal Medicine
DX: J45.901 Unspecified asthma with (acute) exacerbation (principal); J45.902 Unspecified asthma with status asthmaticus; J96.01 Acute respiratory failure with hypoxia; I10 Essential (primary) hypertension; E78.5 Hyperlipidemia, unspecified; E66.9 Obesity, unspecified; G47.33 Obstructive sleep apnea (adult) (pediatric); Z98.51 Tubal ligation status; Z99.89 Dependence on other enabling machines and devices; Z79.51 Long term (current) use of inhaled steroids; Z79.899 Other long term (current) drug therapy; Z91.018 Allergy to other foods; Z68.39 Body mass index [BMI] 39.0-39.9, adult
CPT/HCPCS: 36415; 36600; 71045; 80048; 82803; 85007; 85025; 85610; 87641; 94640; 94644; 94760; 96372; 96374; 96375; 96376; 99291; G0378; J1644; J2060; J2920

== ENCOUNTER 2020-09-11 12:41 | Emergency (ER) | payer MEDICARE ==
[2020-09-11] MEDS ORDERED: methylPREDNISolone Sod Succinate 125 MG/2 ML INJ IM ONE (12:53)
[2020-09-11] MEDS ORDERED: ALBUTEROL 2.5 MG/3 ML NEBU IH ONE (12:53)
[2020-09-11] MEDS ORDERED: IPRATROPIUM 0.02% NEBU 2.5 ML IH ONE (12:53)
[2020-09-11] MEDS ORDERED: MAGNESIUM SULFATE 2 GM/50 ML BAG IV ONE (13:18)
--- NOTE | 2020-09-11 14:14 | Emergency Department Report ---
ED Shortness of Breath HPI - General Chief Complaint: Dyspnea/Respdistress Stated Complaint: SOB Time Seen by Provider: 09/11/20 12:50 Source: patient Mode of arrival: Ambulatory Limitations: No Limitations - History of Present Illness Initial Comments: Patient is a 50-year-old female presents emergency room with complaints of an asthma exacerbation that began this morning. She has associated shortness of breath and wheezing. She denies any cough, fever, nausea, vomiting, diarrhea, sore throat, ear pain. She denies any sick contacts or recent travel. She states that she has been using her inhaler and did 2 nebulizer treatments today but continued to feel short of breath. She has a past medical history of hypertension. No allergies to medications. She states that she has been intubated 5 times in the last time was in 2016. She states that she was last admitted for asthma last month. She states that this exacerbation does not feel as severe as previous exacerbations. She states that she has a systems software specialist Dr. Luis last saw him 09/05/2020. she states that she does have a history of sleep apnea and uses a CPAP machine at night, she states it has been multiple years since she has had her sleep study or CPAP adjusted. - Related Data Home Medications Medication Instructions Recorded Confirmed Last Taken Fluticasone/Vilanterol [Breo 25 mcg IH DAILY 05/09/20 07/08/20 3 Days Ago Ellipta 200-25 Mcg INH] ~05/30/20 Mepolizumab [Nucala] 1 syr IJ QMONTH 05/09/20 07/08/20 1 Month Ago ~04/08/20 Previous Rx's Medication Instructions Recorded Last Taken Type Montelukast [Singulair] 1 mg PO QPM #30 06/02/20 Unknown Rx Albuterol Mdi (or & Nicu Only) 2 puff IH Q4H PRN 30 Days 07/09/20 Unknown Rx [ProAir HFA Inhaler] Budesonide/Formoterol Fumarate 10.2 gm IH BID #1 hfa.aer.ad 07/09/20 Unknown Rx [Symbicort 160-4.5 Mcg Inhaler] Fluticasone [Flonase] 2 puff PO DAILY 30 Days bottle 07/09/20 Unknown Rx Montelukast [Singulair] 10 mg PO QPM #30 tablet 07/09/20 Unknown Rx levoFLOXacin [Levaquin TAB] 500 mg PO Q24HR #3 tablet 07/09/20 Unknown Rx predniSONE [Deltasone] 40 mg PO QDAY #4 tablet 07/09/20 Unknown Rx Prednisone [predniSONE 10 mg 10 mg PO .TAPER #1 tab.ds.pk 09/11/20 Unknown Rx (6-Day Pack, 21 Tabs)] Allergies Allergy/AdvReac Type Severity Reaction Status Date / Time wheat Allergy Unknown Verified 11/11/19 13:04 ED Review of Systems ROS: Stated complaint: SOB Other details as noted in HPI Comment: All other systems reviewed and negative ED Past Medical Hx - Past Medical History Hx Hypertension: Yes Hx Heart Attack/AMI: No Hx Congestive Heart Failure: No Hx Diabetes: No Hx Deep Vein Thrombosis: No Hx Pulmonary Embolism: No Hx Asthma: Yes Hx COPD: No Hx Tuberculosis: No Hx HIV: No Additional medical history: (5) previous intubations due to asthma complications - Surgical History Hx Coronary Stent: No Hx Open Heart Surgery: No Hx Pacemaker: No Hx Internal Defibrillator: No Hx Cholecystectomy: No Hx Appendectomy: No Hx Breast Surgery: No Additional Surgical History: tubal ligation - Social History Smoking Status: Never Smoker - Medications Home Medications: Home Medications Medication Instructions Recorded Confirmed Last Taken Type Fluticasone/Vilanterol [Breo 25 mcg IH DAILY 05/09/20 07/08/20 3 Days Ago History Ellipta 200-25 Mcg INH] ~05/30/20 Mepolizumab [Nucala] 1 syr IJ QMONTH 05/09/20 07/08/20 1 Month Ago History ~04/08/20 Montelukast [Singulair] 1 mg PO QPM #30 06/02/20 07/08/20 Unknown Rx Albuterol Mdi (or & Nicu Only) 2 puff IH Q4H PRN 30 Days 07/09/20 Unknown Rx [ProAir HFA Inhaler] Budesonide/Formoterol Fumarate 10.2 gm IH BID #1 hfa.aer.ad 07/09/20 Unknown Rx [Symbicort 160-4.5 Mcg Inhaler] Fluticasone [Flonase] 2 puff PO DAILY 30 Days bottle 07/09/20 Unknown Rx Montelukast [Singulair] 10 mg PO QPM #30 tablet 07/09/20 Unknown Rx levoFLOXacin [Levaquin TAB] 500 mg PO Q24HR #3 tablet 07/09/20 Unknown Rx predniSONE [Deltasone] 40 mg PO QDAY #4 tablet 07/09/20 Unknown Rx Prednisone [predniSONE 10 mg 10 mg PO .TAPER #1 tab.ds.pk 09/11/20 Unknown Rx (6-Day Pack, 21 Tabs)] ED Physical Exam - General Limitations: No Limitations General appearance: alert, in no apparent distress - Head Head exam: Present: atraumatic, normocephalic - Eye Eye exam: Present: normal appearance - ENT ENT exam: Present: mucous membranes moist - Respiratory Respiratory exam: Present: respiratory distress (moderate), other (poor air movement, decreased breath sounds throughout). Absent: stridor, accessory muscle use - Cardiovascular Cardiovascular Exam: Present: normal rhythm, tachycardia, normal heart sounds. Absent: systolic murmur, diastolic murmur, rubs, gallop - Neurological Exam Neurological exam: Present: alert, oriented X3 - Psychiatric Psychiatric exam: Present: normal affect, normal mood - Skin Skin exam: Present: warm, dry, intact ED Course Vital Signs 09/11/20 09/11/20 12:47 14:52 Temperature 98.2 F Pulse Rate 124 H 117 H Respiratory 22 16 Rate Blood Pressure 188/94 Blood Pressure 151/82 [Left] O2 Sat by Pulse 100 99 Oximetry - Consultations Consultation #1: 09/11/20 16:[address] Olson, ER attending who advised to order peak flow and ABG and to give patient subcutaneous epinephrine 09/11/20 16:45 called respiratory for ABG and peak flow 09/11/20 18:10 discussed all results with Dr. Olson, ER attending who advised that pt does not meet admission criteria, she is not hypoxia, she was ambulated by rotary engine assembler and maintained oxygen saturation of 97% and higher on RA, he advised that pt can be discharged home 09/11/20 18:20 discussed with pt and she states that "she gets admitted every time she comes to the ER" discussed with Dr. Olson who states that pt does not need admission and to consult with pts pulmonolgy group 09/11/20 18:[address] Grove, systems software specialist regarding pt presentation and results, he is very familiar with pt, he also agrees that pt does not need to be admitted, he advised to have pt call office tomorrow to schedule an appointment. ED Medical Decision Making - Lab Data Result diagrams: 09/11/20 15:39 09/11/20 15:39 Lab Results 09/11/20 09/11/20 09/11/20 Range/Units 15:39 15:39 15:39 WBC 9.4 (4.5-11.0) K/mm3 RBC 4.78 (3.65-5.03) M/mm3 Hgb 13.3 (10.1-14.3) gm/dl Hct 41.1 (30.3-42.9) % MCV 86 (79-97) fl MCH 28 (28-32) pg MCHC 32 (30-34) % RDW 14.5 (13.2-15.2) % Plt Count 294 (140-440) K/mm3 Add Manual Diff Complete Total Counted 100 Seg Neutrophils % Volleyball Referee Seg Neuts % (Manual) 96.0 H (40.0-70.0) % Band Neutrophils % 0 % Lymphocytes % (Manual) 3.0 L (13.4-35.0) % Reactive Lymphs % (Man) 0 % Monocytes % (Manual) 1.0 (0.0-7.3) % Eosinophils % (Manual) 0 (0.0-4.3) % Basophils % (Manual) 0 (0.0-1.8) % Metamyelocytes % 0 % Myelocytes % 0 % Promyelocytes % 0 % Blast Cells % 0 % Nucleated RBC % Not Reportable Seg Neutrophils # Man 9.0 H (1.8-7.7) K/mm3 Band Neutrophils # 0.0 K/mm3 Lymphocytes # (Manual) 0.3 L (1.2-5.4) K/mm3 Abs React Lymphs (Man) 0.0 K/mm3 Monocytes # (Manual) 0.1 (0.0-0.8) K/mm3 Eosinophils # (Manual) 0.0 (0.0-0.4) K/mm3 Basophils # (Manual) 0.0 (0.0-0.1) K/mm3 Metamyelocytes # 0.0 K/mm3 Myelocytes # 0.0 K/mm3 Promyelocytes # 0.0 K/mm3 Blast Cells # 0.0 K/mm3 WBC Morphology Not Reportable Hypersegmented Neuts Not Reportable Hyposegmented Neuts Not Reportable Hypogranular Neuts Not Reportable Smudge Cells Not Reportable Toxic Granulation Not Reportable Toxic Vacuolation Not Reportable Dohle Bodies Not Reportable Pelger-Huet Anomaly Not Reportable Elvin Rods Not Reportable Platelet Estimate Appears normal Clumped Platelets Not Reportable Plt Clumps, EDTA Not Reportable Large Platelets Not Reportable Giant Platelets Not Reportable Platelet Satelliting Not Reportable Plt Morphology Comment Not Reportable RBC Morphology Not Reportable Dimorphic RBCs Not Reportable Polychromasia Not Reportable Hypochromasia Not Reportable Poikilocytosis Not Reportable Anisocytosis Few Microcytosis Not Reportable Macrocytosis Not Reportable Spherocytes Not Reportable Pappenheimer Bodies Not Reportable Sickle Cells Not Reportable Target Cells Not Reportable Tear Drop Cells Not Reportable Ovalocytes Not Reportable Helmet Cells Not Reportable Buckner-Chualar Bodies Not Reportable Salix Rings Not Reportable Yusra Cells Not Reportable Bite Cells Not Reportable Crenated Cell Not Reportable Elliptocytes Not Reportable Acanthocytes (Spur) Not Reportable Rouleaux Not Reportable Hemoglobin C Crystals Not Reportable Schistocytes Not Reportable Malaria parasites Not Reportable Sean Bodies Not Reportable Hem Pathologist Commnt No PT 12.8 (12.2-14.9) Sec. INR 0.94 (0.87-1.13) APTT 25.8 (24.2-36.6) Sec. D-Dimer < 135.00 (0-234) ng/mlDDU ABG pH (7.350-7.450) pH Units ABG pCO2 mm Hg ABG pO2 (80.0-90.0) mm Hg ABG HCO3 (20.0-26.0) mmol/L ABG O2 Saturation (95.0-99.0) % ABG O2 Content (0.0-44) ABG Base Excess (-2.0-3.0) mmol/L ABG Hemoglobin (12.0-16.0) gm/dl ABG Carboxyhemoglobin (0.0-5.0) % ABG Methemoglobin (0.0-1.5) % Oxyhemoglobin (95.0-99.0) % FiO2 % Sodium 137 (137-145) mmol/L Potassium 3.8 (3.6-5.0) mmol/L Chloride 99.3 (98-107) mmol/L Carbon Dioxide 20 L (22-30) mmol/L Anion Gap 22 mmol/L BUN 7 (7-17) mg/dL Creatinine 0.9 (0.6-1.2) mg/dL Estimated GFR > 60 ml/min BUN/Creatinine Ratio 8 % Glucose 173 H (65-100) mg/dL Calcium 9.5 (8.4-10.2) mg/dL Total Bilirubin 0.40 (0.1-1.2) mg/dL AST 13 (5-40) units/L ALT 13 (7-56) units/L Alkaline Phosphatase 72 (35-129) units/L Troponin T (0.00-0.029) ng/mL NT-Pro-B Natriuret Pep 42.32 (0-900) pg/mL Total Protein 7.8 (6.3-8.2) g/dL Albumin 4.3 (3.9-5) g/dL Albumin/Globulin Ratio 1.2 % 09/11/20 09/11/20 Range/Units 15:54 17:10 WBC (4.5-11.0) K/mm3 RBC (3.65-5.03) M/mm3 Hgb (10.1-14.3) gm/dl Hct (30.3-42.9) % MCV (79-97) fl MCH (28-32) pg MCHC (30-34) % RDW (13.2-15.2) % Plt Count (140-440) K/mm3 Add Manual Diff Total Counted Seg Neutrophils % Seg Neuts % (Manual) (40.0-70.0) % Band Neutrophils % % Lymphocytes % (Manual) (13.4-35.0) % Reactive Lymphs % (Man) % Monocytes % (Manual) (0.0-7.3) % Eosinophils % (Manual) (0.0-4.3) % Basophils % (Manual) (0.0-1.8) % Metamyelocytes % % Myelocytes % % Promyelocytes % % Blast Cells % % Nucleated RBC % Seg Neutrophils # Man (1.8-7.7) K/mm3 Band Neutrophils # K/mm3 Lymphocytes # (Manual) (1.2-5.4) K/mm3 Abs React Lymphs (Man) K/mm3 Monocytes # (Manual) (0.0-0.8) K/mm3 Eosinophils # (Manual) (0.0-0.4) K/mm3 Basophils # (Manual) (0.0-0.1) K/mm3 Metamyelocytes # K/mm3 Myelocytes # K/mm3 Promyelocytes # K/mm3 Blast Cells # K/mm3 WBC Morphology Hypersegmented Neuts Hyposegmented Neuts Hypogranular Neuts Smudge Cells Toxic Granulation Toxic Vacuolation Dohle Bodies Pelger-Huet Anomaly Elvin Rods Platelet Estimate Clumped Platelets Plt Clumps, EDTA Large Platelets Giant Platelets Platelet Satelliting Plt Morphology Comment RBC Morphology Dimorphic RBCs Polychromasia Hypochromasia Poikilocytosis Anisocytosis Microcytosis Macrocytosis Spherocytes Pappenheimer Bodies Sickle Cells Target Cells Tear Drop Cells Ovalocytes Helmet Cells Buckner-Chualar Bodies [place] Rings [place] Cells Bite Cells Crenated Cell Elliptocytes Acanthocytes (Spur) Rouleaux Hemoglobin C Crystals Schistocytes Malaria parasites Sean Bodies Hem Pathologist Commnt PT (12.2-14.9) Sec. INR (0.87-1.13) APTT (24.2-36.6) Sec. D-Dimer (0-234) ng/mlDDU ABG pH 7.426 (7.350-7.450) pH Units ABG pCO2 31.4 mm Hg ABG pO2 86.6 (80.0-90.0) mm Hg ABG HCO3 20.2 (20.0-26.0) mmol/L ABG O2 Saturation 97.1 (95.0-99.0) % ABG O2 Content 18.2 (0.0-44) ABG Base Excess -3.2 L (-2.0-3.0) mmol/L ABG Hemoglobin 13.6 (12.0-16.0) gm/dl ABG Carboxyhemoglobin 1.5 (0.0-5.0) % ABG Methemoglobin 0.6 (0.0-1.5) % Oxyhemoglobin 95.1 (95.0-99.0) % FiO2 21 % Sodium (137-145) mmol/L Potassium (3.6-5.0) mmol/L Chloride (98-107) mmol/L Carbon Dioxide (22-30) mmol/L Anion Gap mmol/L BUN (7-17) mg/dL Creatinine (0.6-1.2) mg/dL Estimated GFR ml/min BUN/Creatinine Ratio % Glucose (65-100) mg/dL Calcium (8.4-10.2) mg/dL Total Bilirubin (0.1-1.2) mg/dL AST (5-40) units/L ALT (7-56) units/L Alkaline Phosphatase (35-129) units/L Troponin T < 0.010 (0.00-0.029) ng/mL NT-Pro-B Natriuret Pep (0-900) pg/mL Total Protein (6.3-8.2) g/dL Albumin (3.9-5) g/dL Albumin/Globulin Ratio % Vital Signs 09/11/20 09/11/20 12:47 14:52 Temperature 98.2 F Pulse Rate 124 H 117 H Respiratory 22 16 Rate Blood Pressure 188/94 Blood Pressure 151/82 [Left] O2 Sat by Pulse 100 99 Oximetry - EKG Data EKG shows normal: sinus rhythm, QRS complexes, ST-T waves Rate: tachycardia - EKG Data 09/11/20 18:42 LAD no STEMI - Radiology Data Radiology results: report reviewed Ordering Physician: CAITLIN CORLEY Date of Service: 09/11/20 Procedure(s): XR chest 1V ap Accession Number(s): [id number] cc: CAITLIN CORLEY Fluoro Time In Minutes: CHEST 1 VIEW INDICATION: SOB. COMPARISON: 07/06/2020 FINDINGS: Support devices: None. Heart: Within normal limits. Lungs/Pleura: No acute air space or interstitial disease. Additional findings: None. IMPRESSION: No acute findings. Signer Name: Tyler Nunn Jr, MD Signed: 09/11/2020 2:24 PM Workstation Name: [id number] Transcribed By: TTR Dictated By: TYLER NUNN JR, MD Electronically Authenticated By: TYLER NUNN JR, MD Signed Date/Time: 09/11/201423 DD/ 23 TD/TT: - Medical Decision Making Patient is a 50-year-old female presents emergency room with complaints of an asthma exacerbation that began this morning. She has associated shortness of breath and wheezing. She denies any cough, fever, nausea, vomiting, diarrhea, sore throat, ear pain. She denies any sick contacts or recent travel. She states that she has been using her inhaler and did 2 nebulizer treatments today but continued to feel short of breath. She has a past medical history of hypertension. No allergies to medications. She states that she has been intubated 5 times in the last time was in 2016. She states that she was last admitted for asthma last month. She states that this exacerbation does not feel as severe as previous exacerbations. She states that she has a systems software specialist Dr. Luis last saw him 09/05/2020. she states that she does have a history of sleep apnea and uses a CPAP machine at night, she states it has been multiple years since she has had her sleep study or CPAP adjusted. On exam patient has poor air movement, moderate respiratory distress, no accessory muscle use, no stridor. Vitals with tachycardia, otherwise stable. CXR: No acute findings. Labs are normal. D-dimer is negative. Low risk based on Wells criteria for PE. Patient given continuous neb treatment, Solu-Medrol. Discussed case with Dr. Olson, ER attending who advised to order peak flow and ABG and to give patient subcutaneous epinephrine. On reexamination patient's air movement has improved, no wheezing, rales, rhonchi. discussed all results with Dr. Olson, ER attending who advised that pt does not meet admission criteria, she is not hypoxia, she was ambulated by rotary engine assembler and maintained oxygen saturation of 97% and higher on RA, he advised that pt can be discharged home. discussed with pt and she states that "she gets admitted every time she comes to the ER" discussed with Dr. Olson who states that pt does not need admission and to consult with pts pulmonolgy group. spoke to Dr. Grove, systems software specialist regarding pt presentation and results, he is very familiar with pt, he also agrees that pt does not need to be admitted, he advised to have pt call office tomorrow to schedule an appointment. Symptoms appear most likely related to asthma exacerbation, obesity, and sleep apnea. Patient given prescription for prednisone. Advised patient Please take medication as prescribed. Please continue to use your home medications. Follow-up with a systems software specialist. please call tomorrow for an appointment with your systems software specialist. Return to emergency room immediately for any new or worsening symptoms. - Differential Diagnosis Asthma exacerbation, CHF, PE, sleep apnea, obesity hypoventilation, PNA Critical Care Time: Yes Critical care time in (mins) excluding proc time.: 60 Critical care attestation.: If time is entered above; I have spent that time in minutes in the direct care of this critically ill patient, excluding procedure time. Critical Care Time: Critical care time includes multiple reexaminations, multiple consultations, laboratory and diagnostic interpretations, multiple medication administrations ED Disposition Clinical Impression: OBDULIA (obstructive sleep apnea) Asthma with acute exacerbation in adult Qualifiers: Asthma severity: unspecified severity Asthma persistence: unspecified Qualified Code(s): J45.901 - Unspecified asthma with (acute) exacerbation Obesity Qualifiers: Obesity type: unspecified obesity type Obesity classification: adult class 3 (BMI >= 40) Serious obesity comorbidity presence: with serious comorbidity Body mass index: BMI 40.0-44.9 Qualified Code(s): E66.01 - Morbid (severe) obesity due to excess calories Disposition: TO HOME OR SELFCARE Is pt being admited?: No Does the pt Need Aspirin: No Condition: Stable Instructions: Asthma (ED) Additional Instructions: Please take medication as prescribed. Please continue to use your home medications. Follow-up with a systems software specialist. please call tomorrow for an appointment with your systems software specialist. Return to emergency room immediately for any new or worsening symptoms. Prescriptions: Prednisone [predniSONE 10 mg (6-Day Pack, 21 Tabs)] 10 mg PO .TAPER #1 tab.ds.pk Referrals: YULISSA DENG MD [Staff Physician] - 2-3 Days DAYA KASPER [Primary Care Provider] - 2-3 Days Time of Disposition: 18:23 Print Language: AFGHAN
--- NOTE | 2020-09-11 14:29 | XRay Report ---
CHEST 1 VIEW INDICATION: SOB. COMPARISON: 07/06/2020 FINDINGS: Support devices: None. Heart: Within normal limits. Lungs/Pleura: No acute air space or interstitial disease. Additional findings: None. IMPRESSION: No acute findings. Signer Name: Tyler Nunn Jr, MD Signed: 09/11/2020 2:24 PM Workstation Name: [id number]
[2020-09-11 14:53] VITALS: BP 151/82
[2020-09-11 15:59] LABS: Hematocrit 41.1 % (30.3-42.9); Hemoglobin 13.3 gm/dl (10.1-14.3); Mean Corpuscular HGB Conc 32 % (30-34); Mean Corpuscular Volume 86 fl (79-97); Platelet Count 294 K/mm3 (140-440); Red Blood Count 4.78 M/mm3 (3.65-5.03); Red Cell Distribution Width 14.5 % (13.2-15.2)
[2020-09-11 16:11] LABS: INR 0.94 (0.87-1.13)
[2020-09-11 16:12] LABS: Partial Thromboplastin Time 25.8 Sec. (24.2-36.6)
[2020-09-11 16:17] LABS: Alanine Aminotransferase 13 units/L (7-56); Albumin 4.3 g/dL (3.9-5); BUN/Creatinine Ratio 8; Blood Urea Nitrogen 7 mg/dL (7-17); Calcium 9.5 mg/dL (8.4-10.2); Hemolysis Index 5
[2020-09-11 16:32] LABS: Basophils % (Manual) 0 % (0.0-1.8); Eosinophils % (Manual) 0 % (0.0-4.3); Total Cells Counted 100
[2020-09-11 16:34] LABS: Anisocytosis Few
[2020-09-11] MEDS ORDERED: EPINEPHrine/PF 1 MG/1 ML INJ SUB-Q ONE (16:43)
[2020-09-11 17:31] LABS: ABG Base Excess -3.2 mmol/L (-2.0-3.0); ABG HCO3 20.2 mmol/L (20.0-26.0); ABG Methemoglobin 0.6 % (0.0-1.5); ABG Oxygen Saturation 97.1 % (95.0-99.0); ABG PCO2 31.4 mm Hg; ABG PH 7.426 pH Units (7.350-7.450); ABG PO2 86.6 mm Hg (80.0-90.0)
== END 2020-09-11 18:48 | disposition home or self-care (01) ==
LOC: ED 12:41
DX: J45.901 Unspecified asthma with (acute) exacerbation (principal); G47.33 Obstructive sleep apnea (adult) (pediatric); E66.9 Obesity, unspecified; Z98.51 Tubal ligation status; Z79.899 Other long term (current) drug therapy; Z88.8 Allergy status to other drugs, medicaments and biological substances
CPT/HCPCS: 36415; 71045; 80053; 82803; 83880; 84484; 85007; 85025; 85379; 85610; 85730; 93005; 94640; 96365; 96372; 99284; J0171; J2930; J3475; 94644; 99283; J7040

== ENCOUNTER 2020-09-11 19:13 | Emergency (ER) | payer MEDICARE ==
[2020-09-11] MEDS ORDERED: SODIUM CHLORIDE 0.9% 500 ML 500 ML IV ONE (23:53)
[2020-09-11] MEDS ORDERED: MAGNESIUM SULFATE 2 GM/50 ML BAG IV ONE (23:53)
[2020-09-11] MEDS ORDERED: ALBUTEROL 2.5 MG/3 ML NEBU IH ONE (23:53)
[2020-09-11] MEDS ORDERED: IPRATROPIUM 0.02% NEBU 2.5 ML IH ONE (23:53)
[2020-09-11] MEDS ORDERED: EPINEPHrine/PF 1 MG/1 ML INJ SUB-Q ONE (23:53)
--- NOTE | 2020-09-11 23:54 | Emergency Department Report ---
ED General Adult HPI - General Chief complaint: Dyspnea/Respdistress Stated complaint: SOB PUI?: No Time Seen by Provider: 09/11/20 20:05 Source: patient, RN notes reviewed, old records reviewed Mode of arrival: Ambulatory Limitations: No Limitations - History of Present Illness Initial comments: The patient was evaluated in the emergency department for symptoms described in the history of present illness. He/she was evaluated in the context of the global COVID-19 pandemic, which necessitated consideration that the patient might be at risk for infection with the virus that causes COVID-19. Institutional protocols and algorithms that pertain to the evaluation of patients at risk for COVID-19 are in a state of rapid change based on information released by regulatory bodies including the CDC and federal and state organizations. These policies and algorithms were followed during the patient's care in the emergency department. Please note that these policies, procedures and recommendations changed on a rapid basis. Pulmonology: Dr. Leonard The patient is a 50-year-old female with a history of obesity, obstructive sleep apnea, fully compliant with CPAP as per prior documentation, and a history of reactive airway disease. The patient was seen in this emergency department earlier on today for wheezing, and reactive airways disease exacerbation. She had a very thorough and appropriate work-up, including arterial blood gas, D-dimer, x-ray the chest. She was treated aggressively with multiple medications, including albuterol, steroids, magnesium, and subcutaneous epinephrine. The patient did not desaturate significantly, had improvement in work of breathing, and her care was discussed with her covering claim examiner, and all were in agreement, including myself, the patient does not meet criteria for hospitalization or admission. The patient now presents with recurrent complaint of shortness of breath and wheezing. She states this started while she was in the car with a family member driving. She denies fever, and DVT, pulmonary embolism risk factors. She reports that she frequently gets admitted "when my asthma acts up." She has been recently compliant with CPAP, after being off of it for a few weeks. She denies physical pain at this time. She reports some seasonal allergies, but reports compliance with her medications -: Sudden Consistency: constant Improves with: rest Worsens with: medication - Related Data Home Medications Medication Instructions Recorded Confirmed Last Taken Fluticasone/Vilanterol [Breo 25 mcg IH DAILY 05/09/20 07/08/20 3 Days Ago Ellipta 200-25 Mcg INH] ~05/30/20 Mepolizumab [Nucala] 1 syr IJ QMONTH 05/09/20 07/08/20 1 Month Ago ~04/08/20 Previous Rx's Medication Instructions Recorded Last Taken Type Montelukast [Singulair] 1 mg PO QPM #30 06/02/20 Unknown Rx Albuterol Mdi (or & Nicu Only) 2 puff IH Q4H PRN 30 Days 07/09/20 Unknown Rx [ProAir HFA Inhaler] Budesonide/Formoterol Fumarate 10.2 gm IH BID #1 hfa.aer.ad 07/09/20 Unknown Rx [Symbicort 160-4.5 Mcg Inhaler] Fluticasone [Flonase] 2 puff PO DAILY 30 Days bottle 07/09/20 Unknown Rx Montelukast [Singulair] 10 mg PO QPM #30 tablet 07/09/20 Unknown Rx levoFLOXacin [Levaquin TAB] 500 mg PO Q24HR #3 tablet 07/09/20 Unknown Rx predniSONE [Deltasone] 40 mg PO QDAY #4 tablet 07/09/20 Unknown Rx Prednisone [predniSONE 10 mg 10 mg PO .TAPER #1 tab.ds.pk 09/11/20 Unknown Rx (6-Day Pack, 21 Tabs)] Amlodipine Besylate [Norvasc] 5 mg PO QDAY #30 tablet 09/12/20 Unknown Rx Allergies Allergy/AdvReac Type Severity Reaction Status Date / Time wheat Allergy Unknown Verified 11/11/19 13:04 ED Review of Systems ROS: Stated complaint: SOB Other details as noted in HPI Constitutional: malaise Eyes: denies: eye discharge ENT: congestion Respiratory: shortness of breath, SOB at rest, wheezing Cardiovascular: denies: chest pain Gastrointestinal: denies: abdominal pain Neurological: weakness Hematological/Lymphatic: denies: easy bleeding ED Past Medical Hx - Past Medical History Hx Hypertension: Yes Hx Heart Attack/AMI: No Hx Congestive Heart Failure: No Hx Diabetes: No Hx Deep Vein Thrombosis: No Hx Pulmonary Embolism: No Hx Asthma: Yes Hx COPD: No Hx Tuberculosis: No Hx HIV: No Additional medical history: (5) previous intubations due to asthma complications - Surgical History Hx Coronary Stent: No Hx Open Heart Surgery: No Hx Pacemaker: No Hx Internal Defibrillator: No Hx Cholecystectomy: No Hx Appendectomy: No Hx Breast Surgery: No Additional Surgical History: tubal ligation - Social History Smoking Status: Never Smoker Substance Use Type: None - Medications Home Medications: Home Medications Medication Instructions Recorded Confirmed Last Taken Type Fluticasone/Vilanterol [Breo 25 mcg IH DAILY 05/09/20 07/08/20 3 Days Ago History Ellipta 200-25 Mcg INH] ~05/30/20 Mepolizumab [Nucala] 1 syr IJ QMONTH 05/09/20 07/08/20 1 Month Ago History ~04/08/20 Montelukast [Singulair] 1 mg PO QPM #30 06/02/20 07/08/20 Unknown Rx Albuterol Mdi (or & Nicu Only) 2 puff IH Q4H PRN 30 Days 07/09/20 Unknown Rx [ProAir HFA Inhaler] Budesonide/Formoterol Fumarate 10.2 gm IH BID #1 hfa.aer.ad 07/09/20 Unknown Rx [Symbicort 160-4.5 Mcg Inhaler] Fluticasone [Flonase] 2 puff PO DAILY 30 Days bottle 07/09/20 Unknown Rx Montelukast [Singulair] 10 mg PO QPM #30 tablet 07/09/20 Unknown Rx levoFLOXacin [Levaquin TAB] 500 mg PO Q24HR #3 tablet 07/09/20 Unknown Rx predniSONE [Deltasone] 40 mg PO QDAY #4 tablet 07/09/20 Unknown Rx Prednisone [predniSONE 10 mg 10 mg PO .TAPER #1 tab.ds.pk 09/11/20 Unknown Rx (6-Day Pack, 21 Tabs)] Amlodipine Besylate [Norvasc] 5 mg PO QDAY #30 tablet 09/12/20 Unknown Rx ED Physical Exam - General Limitations: No Limitations General appearance: alert, anxious, obese - Head Head exam: Present: atraumatic, normocephalic - Eye Eye exam: Present: normal appearance, EOMI. Absent: nystagmus - ENT ENT exam: Present: normal exam, normal orophraynx, mucous membranes moist, normal external ear exam - Neck Neck exam: Present: normal inspection, full ROM. Absent: tenderness, meningismus - Respiratory Respiratory exam: Present: respiratory distress, wheezes, accessory muscle use. Absent: rhonchi, stridor - Cardiovascular Cardiovascular Exam: Present: normal rhythm, tachycardia, normal heart sounds. Absent: systolic murmur, diastolic murmur, rubs, gallop - GI/Abdominal GI/Abdominal exam: Present: soft. Absent: distended, tenderness, guarding, rebound, rigid, pulsatile mass - Extremities Exam Extremities exam: Present: normal inspection, full ROM, other (2+ pulses noted in the bilateral upper and lower extremities. There is no palpable cord. negative Homans sign. Muscular compartments are soft. The pelvis is stable.). Absent: pedal edema, calf tenderness - Back Exam Back exam: Present: normal inspection, full ROM. Absent: tenderness, CVA tenderness (R), CVA tenderness (L), paraspinal tenderness, vertebral tenderness - Neurological Exam Neurological exam: Present: alert, normal gait, other (No facial droop. Tongue midline. Extraocular movements intact bilaterally. Facial sensation intact to light touch in V1, V2, V3 distribution bilaterally. 5 and a 5 strength in 4 extremities. Sensation intact to light touch in 4 extremities.). Absent: motor sensory deficit - Psychiatric Psychiatric exam: Present: normal affect, normal mood - Skin Skin exam: Present: warm, dry, intact, normal color. Absent: rash ED Course Vital Signs 09/11/20 09/11/20 20:05 23:52 Temperature 98.1 F Pulse Rate 128 H 112 H Respiratory 18 15 Rate Blood Pressure 146/78 Blood Pressure 143/75 [Left] O2 Sat by Pulse 97 98 Oximetry - Reevaluation(s) Reevaluation #1: 09/12/20 00:00 Differential diagnosis, including but not limited to: Reactive airways disease, asthma, bronchitis Assessment and plan: 50-year-old female with recurrent manifestation of reactive airway disease, without DVT, pulmonary embolism risk factors, low risk by Wells criteria, and recent negative D-dimer. She also had unremarkable laboratory studies and an x-ray of the chest. Suspect that there may be an environmental trigger/component to the patient's presentation, as her objective testing while here in the emergency room earlier on today was fairly unremarkable. We will treat the patient with magnesium, subcu epi, and albuterol, Atrovent. We will reassess with a trial of ambulation, the patient's claim examiner was previously consulted, and they indicated the patient could closely follow-up as an outpatient Reevaluation #2: 09/12/20 01:41 Patient is reassessed. Feels much improved. Playing on his cellular phone. Heart rate 110 to 116 bpm. Wheezing is improved. She endorses readiness for discharge. She requests refill on Norvasc, but otherwise indicates she does not need refill on additional medications. ED Medical Decision Making - Lab Data Vital Signs 09/11/20 20:05 Temperature 98.1 F Pulse Rate 128 H Respiratory 18 Rate Blood Pressure 146/78 O2 Sat by Pulse 97 Oximetry Critical care attestation.: If time is entered above; I have spent that time in minutes in the direct care of this critically ill patient, excluding procedure time. ED Disposition Clinical Impression: Asthma exacerbation, Medication refill Disposition: TO HOME OR SELFCARE Is pt being admited?: No Does the pt Need Aspirin: No Condition: Good Instructions: Asthma (ED) Additional Instructions: Please continue current outpatient medications. Please follow-up with your primary care doctor or claim examiner within the next 3 to 5 days. Please return to the emergency room right away with new pain, worsening pain, migration of pain, rectal vomiting, change in mental status, confusion, inability to tolerate liquid feeds, new, worsened or different symptoms not present on the initial emergency room evaluation. Please make certain to remain compliant with CPAP/nocturnal sleep machine. Referrals: JUAN JOSÉ MCGILL MD [Primary Care Provider] - 3-5 Days YULISSA DENG MD [Staff Physician] - 3-5 Days
[2020-09-12 03:47] VITALS: BP 135/72
== END 2020-09-12 03:47 | disposition home or self-care (01) ==
LOC: ED 19:13
DX: J45.901 Unspecified asthma with (acute) exacerbation (principal); Z76.0 Encounter for issue of repeat prescription; I10 Essential (primary) hypertension; J45.909 Unspecified asthma, uncomplicated; Z98.51 Tubal ligation status; Z79.899 Other long term (current) drug therapy; Z91.018 Allergy to other foods
CPT/HCPCS: 94644; 96365; 96372; 99283; J0171; J3475; J7040

== ENCOUNTER 2020-10-22 04:32 | Inpatient (IN) | payer OTHER, MEDICARE ==
[2020-10-22] MEDS ORDERED: MAGNESIUM SULFATE 2 GM/50 ML BAG IV ONE ×2 (04:34→04:41)
[2020-10-22] MEDS ORDERED: IPRATROPIUM 0.02% NEBU 2.5 ML IH ONE ×5 (04:35→20:39)
[2020-10-22] MEDS ORDERED: ALBUTEROL 2.5 MG/3 ML NEBU IH ONE ×4 (04:36→12:06)
--- NOTE | 2020-10-22 04:48 | Emergency Department Report ---
ED Shortness of Breath HPI - General Chief Complaint: Dyspnea/Respdistress Stated Complaint: DINA Time Seen by Provider: 10/22/20 04:41 Source: EMS Mode of arrival: Stretcher Limitations: No Limitations - History of Present Illness Initial Comments: Patient is 50 years old female with history of obesity, obstructive sleep apnea and asthma. Patient brought to the emergency room via EMS for evaluation of shortness of breath and wheezing since last night. Patient stated that she has been using her albuterol with no improvement. Patient received albuterol and Solu-Medrol by EMS and started on BiPAP. Patient stated that she has been intubated 5 times before. Upon arrival to the ER patient is with moderate respiratory distress diffuse wheezing with an oxygen saturation of 100%. MD Complaint: shortness of breath -: Last night Known History Of: asthma - Related Data Home Medications Medication Instructions Recorded Confirmed Last Taken Fluticasone/Vilanterol [Breo 25 mcg IH DAILY 05/09/20 07/08/20 3 Days Ago Ellipta 200-25 Mcg INH] ~05/30/20 Mepolizumab [Nucala] 1 syr IJ QMONTH 05/09/20 07/08/20 1 Month Ago ~04/08/20 Previous Rx's Medication Instructions Recorded Last Taken Type Montelukast [Singulair] 1 mg PO QPM #30 06/02/20 Unknown Rx Albuterol Mdi (or & Nicu Only) 2 puff IH Q4H PRN 30 Days 07/09/20 Unknown Rx [ProAir HFA Inhaler] Budesonide/Formoterol Fumarate 10.2 gm IH BID #1 hfa.aer.ad 07/09/20 Unknown Rx [Symbicort 160-4.5 Mcg Inhaler] Fluticasone [Flonase] 2 puff PO DAILY 30 Days bottle 07/09/20 Unknown Rx Montelukast [Singulair] 10 mg PO QPM #30 tablet 07/09/20 Unknown Rx levoFLOXacin [Levaquin TAB] 500 mg PO Q24HR #3 tablet 07/09/20 Unknown Rx predniSONE [Deltasone] 40 mg PO QDAY #4 tablet 07/09/20 Unknown Rx Prednisone [predniSONE 10 mg 10 mg PO .TAPER #1 tab.ds.pk 09/11/20 Unknown Rx (6-Day Pack, 21 Tabs)] Amlodipine Besylate [Norvasc] 5 mg PO QDAY #30 tablet 09/12/20 Unknown Rx Allergies Allergy/AdvReac Type Severity Reaction Status Date / Time wheat Allergy Unknown Verified 11/11/19 13:04 ED Review of Systems ROS: Stated complaint: DINA Other details as noted in HPI Comment: All other systems reviewed and negative Constitutional: denies: chills, fever Respiratory: shortness of breath, SOB with exertion, SOB at rest, wheezing Cardiovascular: dyspnea on exertion. denies: chest pain, palpitations Gastrointestinal: denies: abdominal pain, nausea, vomiting Musculoskeletal: denies: back pain Neurological: denies: headache, weakness ED Past Medical Hx - Past Medical History Hx Hypertension: Yes Hx Heart Attack/AMI: No Hx Congestive Heart Failure: No Hx Diabetes: No Hx Deep Vein Thrombosis: No Hx Pulmonary Embolism: No Hx Asthma: Yes Hx COPD: No Hx Tuberculosis: No Hx HIV: No Additional medical history: (5) previous intubations due to asthma complications - Surgical History Hx Coronary Stent: No Hx Open Heart Surgery: No Hx Pacemaker: No Hx Internal Defibrillator: No Hx Cholecystectomy: No Hx Appendectomy: No Hx Breast Surgery: No Additional Surgical History: tubal ligation - Social History Smoking Status: Never Smoker Substance Use Type: None - Medications Home Medications: Home Medications Medication Instructions Recorded Confirmed Last Taken Type Fluticasone/Vilanterol [Breo 25 mcg IH DAILY 05/09/20 07/08/20 3 Days Ago History Ellipta 200-25 Mcg INH] ~05/30/20 Mepolizumab [Nucala] 1 syr IJ QMONTH 05/09/20 07/08/20 1 Month Ago History ~04/08/20 Montelukast [Singulair] 1 mg PO QPM #30 06/02/20 07/08/20 Unknown Rx Albuterol Mdi (or & Nicu Only) 2 puff IH Q4H PRN 30 Days 07/09/20 Unknown Rx [ProAir HFA Inhaler] Budesonide/Formoterol Fumarate 10.2 gm IH BID #1 hfa.aer.ad 07/09/20 Unknown Rx [Symbicort 160-4.5 Mcg Inhaler] Fluticasone [Flonase] 2 puff PO DAILY 30 Days bottle 07/09/20 Unknown Rx Montelukast [Singulair] 10 mg PO QPM #30 tablet 07/09/20 Unknown Rx levoFLOXacin [Levaquin TAB] 500 mg PO Q24HR #3 tablet 07/09/20 Unknown Rx predniSONE [Deltasone] 40 mg PO QDAY #4 tablet 07/09/20 Unknown Rx Prednisone [predniSONE 10 mg 10 mg PO .TAPER #1 tab.ds.pk 09/11/20 Unknown Rx (6-Day Pack, 21 Tabs)] Amlodipine Besylate [Norvasc] 5 mg PO QDAY #30 tablet 09/12/20 Unknown Rx ED Physical Exam - General Limitations: No Limitations General appearance: alert, in distress - Head Head exam: Present: atraumatic, normocephalic, normal inspection - Eye Eye exam: Present: normal appearance - ENT ENT exam: Present: normal exam, normal orophraynx, mucous membranes moist - Neck Neck exam: Present: normal inspection, full ROM. Absent: tenderness, meningismus - Respiratory Respiratory exam: Present: respiratory distress, wheezes, rales, rhonchi, de creased breath sounds, prolonged expiratory - Cardiovascular Cardiovascular Exam: Present: tachycardia - GI/Abdominal GI/Abdominal exam: Present: soft, normal bowel sounds. Absent: distended, tenderness, guarding, rebound, rigid, organomegaly, mass, bruit, pulsatile mass, hernia - Extremities Exam Extremities exam: Present: normal inspection. Absent: pedal edema - Back Exam Back exam: Present: normal inspection, full ROM. Absent: CVA tenderness (R), CVA tenderness (L) - Neurological Exam Neurological exam: Present: alert, oriented X3, CN II-XII intact - Psychiatric Psychiatric exam: Present: normal mood - Skin Skin exam: Present: warm, intact, normal color ED Course Vital Signs 10/22/20 10/22/20 10/22/20 04:41 04:45 04:51 Pulse Rate 123 H 128 H Pulse Rate [ 110 H Bilateral] Respiratory 22 21 Rate Respiratory 22 Rate [Bilateral ] Blood Pressure 186/96 Blood Pressure 179/101 [Right] O2 Sat by Pulse 99 100 Oximetry ED Medical Decision Making - Lab Data Result diagrams: 10/22/20 04:56 10/22/20 04:56 - EKG Data -: EKG Interpreted by [facility] EKG shows normal: sinus rhythm Rate: tachycardia - EKG Data Interpretation: no acute changes - Radiology Data Radiology results: report reviewed - Medical Decision Making Patient is 50 years old female with history of obesity, obstructive sleep apnea and asthma. Patient brought to the emergency room via EMS for evaluation of shortness of breath and wheezing since last night. Patient stated that she has been using her albuterol with no improvement. Patient received albuterol and Solu-Medrol by EMS and started on BiPAP. Patient stated that she has been intubated 5 times before. Upon arrival to the ER patient is with moderate respiratory distress diffuse wheezing with an oxygen saturation of 100%. Patient received albuterol, Atrovent and magnesium sulfate. Chest x-ray is unremarkable. Labs reviewed and is unremarkable. I discussed the patient with Dr. Johns, he agreed to admit the patient to medical service for further management. Critical Care Time: Yes Critical care time in (mins) excluding proc time.: 30 Critical care attestation.: If time is entered above; I have spent that time in minutes in the direct care of this critically ill patient, excluding procedure time. ED Disposition Clinical Impression: Acute respiratory failure, Asthma exacerbation Disposition: OP ADMIT IP TO THIS HOSP Is pt being admited?: Yes Condition: Stable
--- NOTE | 2020-10-22 05:27 | XRay Report ---
CHEST 1 VIEW INDICATION: Dyspnea. COMPARISON: 09/11/2020 FINDINGS: SUPPORT DEVICES: None. HEART: Within normal limits. LUNGS/PLEURA: No acute air space or interstitial disease. ADDITIONAL FINDINGS: None. IMPRESSION: 1. No acute findings. Signer Name: Michael Pérez MD Signed: 10/22/2020 5:22 AM Workstation Name: [id number]
[2020-10-22 05:30] LABS: Basophils % (Auto) 0.2 % (0.0-1.8); Eosinophils % (Auto) 0.2 % (0.0-4.3); Hemoglobin 12.7 gm/dl (10.1-14.3); Lymphocytes # (Auto) 1.5 K/mm3 (1.2-5.4); Lymphocytes % (Auto) 13.5 % (13.4-35.0); Mean Corpuscular HGB Conc 33 % (30-34); Mean Corpuscular Volume 85 fl (79-97); Monocytes # (Auto) 0.7 K/mm3 (0.0-0.8); Monocytes % (Auto) 6.7 % (0.0-7.3); Platelet Count 248 K/mm3 (140-440); Red Blood Count 4.61 M/mm3 (3.65-5.03)
[2020-10-22 05:36] LABS: Blood Urea Nitrogen 13 mg/dL (7-17); Calcium 9.2 mg/dL (8.4-10.2); Hemolysis Index 3
[2020-10-22 05:41] LABS: INR 0.98 (0.87-1.13)
[2020-10-22 05:42] LABS: Partial Thromboplastin Time 25.2 Sec. (24.2-36.6)
--- NOTE | 2020-10-22 05:44 | History and Physical Report ---
History of Present Illness Date of examination: 10/22/20 Date of admission: 10/22/2020 Chief complaint: Shortness of Breath History of present illness: 50-year-old -[place] female with known history of obstructive sleep apnea, obesity and asthma brought in by EMS this a.m. for shortness of breath which started overnight. Patient indicates she has been using albuterol treatments at home without any significant improvement. She denies any fever or chills, no chest pain, no headache or dizziness, no diaphoresis, no nausea or vomiting. She denies any sick contacts and no recent travel and she denies any contact with anyone with COVID-19. She denies exp osure to any toxic fumes. Patient has been intubated about 5 times in the past for respiratory failure secondary to asthma. Patient was given albuterol and Solu-Medrol by EMS en route to the hospital. On arrival in the emergency room patient was in respiratory distress and was subsequently placed on BiPAP with oxygen saturation at 100%. Work-up in the emergency room, chest x-ray was unremarkable. Available labs so far has been unremarkable. Chemistry is still being awaited. Past History Past Medical History: other (Sleep Apnea,Asthma) Past Surgical History: Other (Intubations X 2 in the past) Social history: no significant social history Family history: no significant family history Medications and Allergies Allergies Allergy/AdvReac Type Severity Reaction Status Date / Time wheat Allergy Unknown Verified 11/11/19 13:04 Home Medications Medication Instructions Recorded Confirmed Last Taken Type Fluticasone/Vilanterol [Breo 25 mcg IH DAILY 05/09/20 07/08/20 3 Days Ago History Ellipta 200-25 Mcg INH] ~05/30/20 Mepolizumab [Nucala] 1 syr IJ QMONTH 05/09/20 07/08/20 1 Month Ago History ~04/08/20 Montelukast [Singulair] 1 mg PO QPM #30 06/02/20 07/08/20 Unknown Rx Albuterol Mdi (or & Nicu Only) 2 puff IH Q4H PRN 30 Days 07/09/20 Unknown Rx [ProAir HFA Inhaler] Budesonide/Formoterol Fumarate 10.2 gm IH BID #1 hfa.aer.ad 07/09/20 Unknown Rx [Symbicort 160-4.5 Mcg Inhaler] Fluticasone [Flonase] 2 puff PO DAILY 30 Days bottle 07/09/20 Unknown Rx Montelukast [Singulair] 10 mg PO QPM #30 tablet 07/09/20 Unknown Rx levoFLOXacin [Levaquin TAB] 500 mg PO Q24HR #3 tablet 07/09/20 Unknown Rx predniSONE [Deltasone] 40 mg PO QDAY #4 tablet 07/09/20 Unknown Rx Prednisone [predniSONE 10 mg 10 mg PO .TAPER #1 tab.ds.pk 09/11/20 Unknown Rx (6-Day Pack, 21 Tabs)] Amlodipine Besylate [Norvasc] 5 mg PO QDAY #30 tablet 09/12/20 Unknown Rx Review of Systems Constitutional: no fever, no chills Ears, nose, mouth and throat: no nasal congestion, no sore throat Respiratory: cough, shortness of breath, wheezing Gastrointestinal: no abdominal pain, no nausea, no vomiting, no diarrhea Genitourinary Female: no flank pain, no dysuria, no hematuria Musculoskeletal: no neck pain, no low back pain Integumentary: no rash, no pruritis Neurological: no headaches, no confusion Psychiatric: no anxiety, no depression Exam - Constitutional Vitals: Temp Pulse Resp BP Pulse Ox 110 H 22 186/96 100 10/22/20 04:51 10/22/20 04:51 10/22/20 04:45 10/22/20 04:45 General appearance: Present: mild distress, well-nourished, obese - EENT Eyes: Present: PERRL, EOM intact. Absent: scleral icterus ENT: hearing intact, clear oral mucosa, dentition normal - Neck Neck: Present: supple, normal ROM - Respiratory Respiratory effort: labored Respiratory: bilateral: wheezing - Cardiovascular Rhythm: regular Heart Sounds: Present: S1 & S2. Absent: gallop, systolic murmur, diastolic murmur, rub - Extremities Extremities: no ischemia, pulses intact, pulses symmetrical, No edema, Full ROM Peripheral Pulses: within normal limits - Abdominal General gastrointestinal: Present: soft, non-tender, non-distended, normal bowel sounds. Absent: mass - Integumentary Integumentary: Present: clear, warm, dry. Absent: rash - Musculoskeletal Musculoskeletal: strength equal bilaterally - Psychiatric Psychiatric: appropriate mood/affect, intact judgment & insight, memory intact, cooperative - Neurologic Neurologic: CNII-XII intact, no focal deficits, moves all extremities HEART Score - HEART Score Troponin: Troponin T < 0.010 ng/mL (0.00-0.029) 10/22/20 04:56 Results - Labs CBC & Chem 7: 10/22/20 04:56 10/22/20 04:56 Labs: Abnormal lab results 10/22/20 Range/Units 04:56 Seg Neutrophils % 79.4 H (40.0-70.0) % Seg Neutrophils # 8.5 H (1.8-7.7) K/mm3 Assessment and Plan - Patient Problems (1) Asthma exacerbation Status: Acute Plan to address problem: Patient placed on nebulizing treatment and IV steroid. She has also been placed on BiPAP. We placed a consult to pulmonology for evaluation and recommendation during this admission. (2) Hypertension Status: Chronic Qualifiers: Hypertension type: essential hypertension Qualified Code(s): I10 - Essential (primary) hypertension Plan to address problem: Patient indicates that she has been on amlodipine at home 5 mg. We will continue routine home medications and monitor vital signs closely. (3) DVT prophylaxis Status: Acute Plan to address problem: Patient placed on subcutaneous Lovenox. (4) Full code status Status: Acute
[2020-10-22] MEDS ORDERED: MAGNESIUM HYDROXIDE (MOM) ORAL LIQD UDC PO PRN (05:47)
[2020-10-22] MEDS ORDERED: MORPHINE 2 MG/1 ML INJ IV PRN (05:47)
[2020-10-22] MEDS ORDERED: ONDANSETRON 4 MG/2 ML INJ IV PRN (05:47)
[2020-10-22] MEDS ORDERED: ACETAMINOPHEN 325 MG TAB PO PRN (05:47)
[2020-10-22] MEDS ORDERED: methylPREDNISolone Sod Succinate 40 MG/1 ML INJ IV SCH ×2 (06:00→09:00)
[2020-10-22 06:05] LABS: BUN/Creatinine Ratio 19
[2020-10-22] MEDS ORDERED: IPRATROPIUM/ALBUTEROL SULFATE 3 ML AMPUL.NEB IH SCH (08:00)
--- NOTE | 2020-10-22 08:34 | Consultation ---
History of Present Illness Consult date: 10/22/20 Requesting physician: LOLY GARCIA Reason for consult: asthma, other (acute on chronic respiratory failure) History of present illness: 50 y/o female, well known to me and our service as she follows with us as an outpatient, admitted with acute on chronic respiratory failure. Ms. Lee has severe persistent asthma and will have runs of exacerbations. She is currently in one now. Last saw her a few weeks ago. She usually is in the hospital for 2- 3 days and then discharge. No sick contacts. No fever. States compliance with all therapies. Remainder is negative. No abg obtained on admission. Past History Past Medical History: other (Sleep Apnea,Asthma) Past Surgical History: Other (Intubations X 2 in the past) Social history: no significant social history Family history: no significant family history Medications and Allergies Allergies Allergy/AdvReac Type Severity Reaction Status Date / Time wheat Allergy Unknown Verified 11/11/19 13:04 Home Medications Medication Instructions Recorded Confirmed Last Taken Type Fluticasone/Vilanterol [Breo 25 mcg IH DAILY 05/09/20 07/08/20 3 Days Ago History Ellipta 200-25 Mcg INH] ~05/30/20 Mepolizumab [Nucala] 1 syr IJ QMONTH 05/09/20 07/08/20 1 Month Ago History ~04/08/20 Montelukast [Singulair] 1 mg PO QPM #30 06/02/20 07/08/20 Unknown Rx Albuterol Mdi (or & Nicu Only) 2 puff IH Q4H PRN 30 Days 07/09/20 Unknown Rx [ProAir HFA Inhaler] Budesonide/Formoterol Fumarate 10.2 gm IH BID #1 hfa.aer.ad 07/09/20 Unknown Rx [Symbicort 160-4.5 Mcg Inhaler] Fluticasone [Flonase] 2 puff PO DAILY 30 Days bottle 07/09/20 Unknown Rx Montelukast [Singulair] 10 mg PO QPM #30 tablet 07/09/20 Unknown Rx levoFLOXacin [Levaquin TAB] 500 mg PO Q24HR #3 tablet 07/09/20 Unknown Rx predniSONE [Deltasone] 40 mg PO QDAY #4 tablet 07/09/20 Unknown Rx Prednisone [predniSONE 10 mg 10 mg PO .TAPER #1 tab.ds.pk 09/11/20 Unknown Rx (6-Day Pack, 21 Tabs)] Amlodipine Besylate [Norvasc] 5 mg PO QDAY #30 tablet 09/12/20 Unknown Rx Active Meds: Active Medications Acetaminophen (Tylenol) 650 mg PO Q4H PRN PRN Reason: Pain MILD(1-3)/Fever >100.5/BOOKER Albuterol/Ipratropium (Duoneb *Not For Prn Use*) 1 ampul IH Q6HRT JOSE D Enoxaparin Sodium (Enoxaparin) 40 mg SUB-Q QDAY@2200 JOSE D; Protocol Magnesium Hydroxide (Milk Of Magnesia) 30 ml PO Q4H PRN PRN Reason: Constipation Methylprednisolone Sodium Succinate (Solu-Medrol) 40 mg IV Q8HR JOSE D Last Admin: 10/22/20 06:29 Dose: 40 mg Documented by: Morphine Sulfate (Morphine) 2 mg IV Q4H PRN PRN Reason: Pain, Moderate (4-6) Ondansetron HCl (Zofran) 4 mg IV Q8H PRN PRN Reason: Nausea And Vomiting Sodium Chloride (Sodium Chloride Flush Syringe 10 Ml) 10 ml IV BID JOSE D Sodium Chloride (Sodium Chloride Flush Syringe 10 Ml) 10 ml IV PRN PRN PRN Reason: LINE FLUSH Review of Systems All systems: negative Physical Examination Vital signs: Vital Signs Pulse Resp Pulse Ox 121 H 20 99 10/22/20 04:40 10/22/20 04:40 10/22/20 04:40 Results - Laboratory Findings CBC and BMP: 10/22/20 04:56 10/22/20 04:56 PT/INR, D-dimer PT 12.8 Sec. (12.2-14.9) 10/22/20 04:56 INR 0.98 (0.87-1.13) 10/22/20 04:56 Abnormal lab findings: Abnormal Labs 10/22/20 10/22/20 04:56 04:56 Seg Neutrophils % 79.4 H Seg Neutrophils # 8.5 H Glucose 158 H - Diagnostic Findings Chest x-ray: image reviewed Assessment and Plan 50 y/o female with acute on chronic respiratory failure secondary to asthma exacerbation. 1. Will change steroids to 60q6 2. Will add BID pulmicort and ok with scheduled duonebs 3. NO IVF's 4. BP control 5. Please send BNP. Thanks for the consult.
[2020-10-22] MEDS ORDERED: BUDESONIDE 0.5 MG/2 ML NEBU IH ONE (12:06)
[2020-10-22] MEDS: BUDESONIDE 0.5 MG/2 ML NEBU IH SCH ×2 (12:10→20:54)
[2020-10-22] MEDS: IPRATROPIUM/ALBUTEROL SULFATE 3 ML AMPUL.NEB IH SCH ×4 (12:17→20:54)
[2020-10-22] MEDS ORDERED: ALBUTEROL 2.5 MG/3 ML NEBU IH PRN (12:30)
[2020-10-22] MEDS ORDERED: methylPREDNISolone Sod Succinate 40 MG/1 ML INJ ONE ×2 (15:12→19:42)
[2020-10-22] MEDS: methylPREDNISolone Sod Succinate 125 MG/2 ML INJ IV SCH ×3 (15:16→23:51)
--- NOTE | 2020-10-22 17:00 | Event Note ---
Date: 10/22/20 Admitted for asthma exacerbation in the early hours Patient in observation status To change to inpatient tomorrow or discharge depending on symptomatic improvement Patient continues to be short of breath
[2020-10-22] MEDS ORDERED: methylPREDNISolone Sod Succinate 125 MG/2 ML INJ ONE (19:44)
[2020-10-22] MEDS: ENOXAPARIN 40 MG/0.4 ML INJ SUB-Q SCH (21:42)
[2020-10-23] MEDS: IPRATROPIUM/ALBUTEROL SULFATE 3 ML AMPUL.NEB IH SCH ×6 (03:35→21:14)
[2020-10-23] MEDS: methylPREDNISolone Sod Succinate 125 MG/2 ML INJ IV SCH ×4 (05:25→23:58)
[2020-10-23 05:29] LABS: Hematocrit 39.7 % (30.3-42.9); Hemoglobin 12.5 gm/dl (10.1-14.3); Mean Corpuscular HGB Conc 32 % (30-34); Mean Corpuscular Volume 85 fl (79-97); Platelet Count 264 K/mm3 (140-440); Red Blood Count 4.66 M/mm3 (3.65-5.03); Red Cell Distribution Width 14.4 % (13.2-15.2)
[2020-10-23 06:16] LABS: INR 1.02 (0.87-1.13)
[2020-10-23 06:56] LABS: Basophils % (Manual) 0 % (0.0-1.8); Eosinophils % (Manual) 0 % (0.0-4.3); Platelet Estimate Consistent w Auto; Total Cells Counted 100
[2020-10-23 07:03] LABS: BUN/Creatinine Ratio 18; Blood Urea Nitrogen 16 mg/dL (7-17); Hemolysis Index 4
[2020-10-23] MEDS: BUDESONIDE 0.5 MG/2 ML NEBU IH SCH ×2 (07:54→21:13)
--- NOTE | 2020-10-23 09:05 | Progress Note ---
Assessment and Plan 50 y/o female with acute on chronic respiratory failure secondary to asthma exacerbation. 1. Continue steroids at current dosing. 2. BID pulmicort and ok with scheduled duonebs 3. NO IVF's 4. BP control 5. No BNP sent, not needed now. 6. Likely discharge in the AM, 24 more hours of IV steroids is appropriate. Subjective Date of service: 10/23/20 Interval history: Much improved today but still not at baseline. Tolerated PPV last night. Upset as her treatments were not given appropriately in the ED. Better since on the floor. Objective Vital Signs - 12hr 10/22/20 10/22/20 10/22/20 22:20 23:00 23:28 Temperature 98.2 F Pulse Rate 104 H 81 Pulse Rate [ Bilateral] Respiratory 18 18 16 Rate Respiratory Rate [Bilateral ] Blood Pressure 149/74 O2 Sat by Pulse 100 96 Oximetry 10/23/20 10/23/20 10/23/20 03:35 04:00 04:06 Temperature 98.3 F Pulse Rate 93 H 93 H Pulse Rate [ 91 H Bilateral] Respiratory 15 20 Rate Respiratory 18 Rate [Bilateral ] Blood Pressure 146/75 146/75 O2 Sat by Pulse 93 98 Oximetry CBC and BMP: 10/23/20 04:34 10/23/20 04:34 ABG, PT/INR, D-dimer: PT/INR, D-dimer PT 13.2 Sec. (12.2-14.9) 10/23/20 04:34 INR 1.02 (0.87-1.13) 10/23/20 04:34 Abnormal lab findings: Abnormal Labs 10/22/20 10/22/20 10/23/20 04:56 04:56 04:34 WBC 18.6 H MCH 27 L Seg Neutrophils % 79.4 H Seg Neuts % (Manual) 92.0 H Lymphocytes % (Manual) 5.0 L Seg Neutrophils # 8.5 H Seg Neutrophils # Man 17.1 H Lymphocytes # (Manual) 0.9 L Glucose 158 H 10/23/20 04:34 WBC MCH Seg Neutrophils % Seg Neuts % (Manual) Lymphocytes % (Manual) Seg Neutrophils # Seg Neutrophils # Man Lymphocytes # (Manual) Glucose 170 H
[2020-10-23] MEDS: ENOXAPARIN 40 MG/0.4 ML INJ SUB-Q SCH (21:39)
--- NOTE | 2020-10-23 23:54 | Progress Note ---
Assessment and Plan - Patient Problems (1) Acute respiratory failure with hypoxia Status: Acute Plan to address problem: Continue oxygen supplementations BiPAP if necessary Intubation if necessary (2) Asthma with acute exacerbation in adult Status: Acute Qualifiers: Asthma severity: unspecified severity Asthma persistence: unspecified Qualified Code(s): J45.901 - Unspecified asthma with (acute) exacerbation Plan to address problem: IV steroids, nebulizers and IV antibiotics Pulmonary consult appreciated (3) Hypertension Status: Chronic Qualifiers: Hypertension type: essential hypertension Qualified Code(s): I10 - Esse ntial (primary) hypertension Plan to address problem: Continue amlodipine (4) DVT prophylaxis Status: Acute Plan to address problem: Patient on heparin and GI prophylaxis Subjective Date of service: 10/23/20 Principal diagnosis: Respiratory failure and asthma exacerbation Interval history: Patient still wheezing and tachypneic Patient is admitted for asthma exacerbation and acute respiratory failure with h ypoxia Pulmonary consult appreciated Objective - Constitutional Vitals: Vital Signs - 12hr 10/23/20 10/23/20 10/23/20 14:11 14:14 17:30 Temperature 97.3 F L Pulse Rate 93 H Pulse Rate [ 68 Bilateral] Respiratory 17 Rate Respiratory 14 Rate [Bilateral ] Respiratory Rate [Denies Pain] Respiratory Rate [ GENERALIZED] Respiratory Rate [chest] Blood Pressure 146/74 O2 Sat by Pulse 99 100 Oximetry 10/23/20 10/23/20 10/23/20 21:38 22:00 22:46 Temperature 98.0 F Pulse Rate 105 H Pulse Rate [ 82 Bilateral] Respiratory 19 Rate Respiratory 18 Rate [Bilateral ] Respiratory 17 Rate [Denies Pain] Respiratory 17 Rate [ GENERALIZED] Respiratory 17 Rate [chest] Blood Pressure 146/65 O2 Sat by Pulse 99 100 Oximetry General appearance: Present: mild distress, well-nourished - EENT Eyes: PERRL, EOM intact ENT: hearing intact, clear oral mucosa Ears: bilateral: normal - Neck Neck: supple, normal ROM - Respiratory Respiratory effort: normal Respiratory: bilateral: CTA, rhonchi, wheezing - Breasts Breasts: normal - Cardiovascular Heart rate: 78 Rhythm: regular Heart Sounds: Present: S1 & S2. Absent: gallop, rub Extremities: pulses intact, No edema, normal color, Full ROM - Gastrointestinal General gastrointestinal: Present: soft, non-tender, non-distended, normal bowel sounds - Genitourinary Female genitourinary: normal - Integumentary Integumentary: clear, warm, dry - Musculoskeletal Musculoskeletal: 1, strength equal bilaterally - Neurologic Neurologic: moves all extremities - Psychiatric Psychiatric: memory intact, appropriate mood/affect, intact judgment & insight - Labs CBC & Chem 7: 10/23/20 04:34 10/23/20 04:34 Labs: Abnormal lab results 10/23/20 10/23/20 Range/Units 04:34 04:34 WBC 18.6 H (4.5-11.0) K/mm3 MCH 27 L (28-32) pg Seg Neuts % (Manual) 92.0 H (40.0-70.0) % Lymphocytes % (Manual) 5.0 L (13.4-35.0) % Seg Neutrophils # Man 17.1 H (1.8-7.7) K/mm3 Lymphocytes # (Manual) 0.9 L (1.2-5.4) K/mm3 Glucose 170 H (65-100) mg/dL HEART Score - HEART Score Troponin: Troponin T < 0.010 ng/mL (0.00-0.029) 10/22/20 04:56
[2020-10-24] MEDS: IPRATROPIUM/ALBUTEROL SULFATE 3 ML AMPUL.NEB IH SCH ×4 (02:55→21:29)
[2020-10-24] MEDS: methylPREDNISolone Sod Succinate 125 MG/2 ML INJ IV SCH ×3 (05:52→18:37)
--- NOTE | 2020-10-24 09:08 | Progress Note ---
Assessment and Plan 50 y/o female with acute on chronic respiratory failure secondary to asthma exacerbation. 1. Switch to Prednisone 60 at discharge and taper as follows: 60 daily for 3 days, 40 daily for 3 days, 20 daily for 3 days then stop. 2. Resume home COPD regimen at discharge. 3. NO IVF's 4. BP control 5. Will arrange follow up as she missed her appointment yesterday. Would discharge in the am. Subjective Date of service: 10/24/20 Interval history: No acute events. Feels better but still short of breath. Mold has been found in her home but being cleaned today. Objective Vital Signs - 12hr 10/23/20 10/23/20 10/23/20 21:38 22:00 22:46 Temperature 98.0 F Pulse Rate 105 H Pulse Rate [ 82 Bilateral] Respiratory 19 Rate Respiratory 18 Rate [Bilateral ] Respiratory 17 Rate [Denies Pain] Respiratory 17 Rate [ GENERALIZED] Respiratory 17 Rate [chest] Blood Pressure 146/65 O2 Sat by Pulse 99 100 Oximetry 10/23/20 10/24/20 10/24/20 23:00 00:24 04:22 Temperature 97.4 F L Pulse Rate 77 74 Pulse Rate [ Bilateral] Respiratory 19 14 18 Rate Respiratory Rate [Bilateral ] Respiratory Rate [Denies Pain] Respiratory Rate [ GENERALIZED] Respiratory Rate [chest] Blood Pressure 110/51 O2 Sat by Pulse 100 100 Oximetry 10/24/20 04:36 Temperature Pulse Rate 76 Pulse Rate [ Bilateral] Respiratory 16 Rate Respiratory Rate [Bilateral ] Respiratory Rate [Denies Pain] Respiratory Rate [ GENERALIZED] Respiratory Rate [chest] Blood Pressure O2 Sat by Pulse 100 Oximetry CBC and BMP: 10/23/20 04:34 10/23/20 04:34 ABG, PT/INR, D-dimer: PT/INR, D-dimer PT 13.2 Sec. (12.2-14.9) 10/23/20 04:34 INR 1.02 (0.87-1.13) 10/23/20 04:34 Abnormal lab findings: Abnormal Labs 10/22/20 10/22/20 10/23/20 04:56 04:56 04:34 WBC 18.6 H MCH 27 L Seg Neutrophils % 79.4 H Seg Neuts % (Manual) 92.0 H Lymphocytes % (Manual) 5.0 L Seg Neutrophils # 8.5 H Seg Neutrophils # Man 17.1 H Lymphocytes # (Manual) 0.9 L Glucose 158 H 10/23/20 04:34 WBC MCH Seg Neutrophils % Seg Neuts % (Manual) Lymphocytes % (Manual) Seg Neutrophils # Seg Neutrophils # Man Lymphocytes # (Manual) Glucose 170 H
[2020-10-24] MEDS: BUDESONIDE 0.5 MG/2 ML NEBU IH SCH ×2 (10:32→21:29)
[2020-10-24] MEDS: ENOXAPARIN 40 MG/0.4 ML INJ SUB-Q SCH (21:59)
--- NOTE | 2020-10-24 22:31 | Progress Note ---
Assessment and Plan - Patient Problems (1) Acute respiratory failure with hypoxia Status: Acute Plan to address problem: Continue oxygen supplementations BiPAP if necessary Intubation if necessary (2) Asthma with acute exacerbation in adult Status: Acute Qualifiers: Asthma severity: unspecified severity Asthma persistence: unspecified Qualified Code(s): J45.901 - Unspecified asthma with (acute) exacerbation Plan to address problem: IV steroids, nebulizers and IV antibiotics Pulmonary consult appreciated (3) Hypertension Status: Chronic Qualifiers: Hypertension type: essential hypertension Qualified Code(s): I10 - Esse ntial (primary) hypertension Plan to address problem: Continue amlodipine (4) DVT prophylaxis Status: Acute Plan to address problem: Patient on heparin and GI prophylaxis Subjective Date of service: 10/24/20 Principal diagnosis: Acute respiratory failure, hypoxia, asthma exacerbation Interval history: Patient still wheezing and tachypneic Patient is admitted for asthma exacerbation and acute respiratory failure with hypoxia Pulmonary consult appreciated Objective - Constitutional Vitals: Vital Signs - 12hr 10/24/20 10/24/20 10/24/20 10:35 11:00 11:53 Temperature 98.4 F Pulse Rate 84 Pulse Rate [ Bilateral] Respiratory 20 16 Rate Respiratory Rate [Bilateral ] Blood Pressure 133/65 O2 Sat by Pulse 91 98 Oximetry 10/24/20 10/24/20 10/24/20 14:33 14:34 16:34 Temperature 98.6 F Pulse Rate 88 Pulse Rate [ 89 Bilateral] Respiratory 18 Rate Respiratory 18 Rate [Bilateral ] Blood Pressure 131/68 O2 Sat by Pulse 99 99 Oximetry 10/24/20 20:45 Temperature Pulse Rate Pulse Rate [ 88 Bilateral] Respiratory Rate Respiratory 18 Rate [Bilateral ] Blood Pressure O2 Sat by Pulse Oximetry General appearance: Present: no acute distress, well-nourished - EENT Eyes: PERRL, EOM intact ENT: hearing intact, clear oral mucosa Ears: bilateral: normal - Neck Neck: supple, normal ROM - Respiratory Respiratory effort: normal Respiratory: bilateral: CTA - Breasts Breasts: normal - Cardiovascular Heart rate: 78 Rhythm: regular Heart Sounds: Present: S1 & S2. Absent: gallop, rub Extremities: pulses intact, No edema, normal color, Full ROM - Gastrointestinal General gastrointestinal: Present: soft, non-tender, non-distended, normal bowel sounds - Genitourinary Female genitourinary: normal - Integumentary Integumentary: clear, warm, dry - Musculoskeletal Musculoskeletal: 1, strength equal bilaterally - Neurologic Neurologic: moves all extremities - Psychiatric Psychiatric: memory intact, appropriate mood/affect, intact judgment & insight - Labs CBC & Chem 7: 10/23/20 04:34 10/23/20 04:34 HEART Score - HEART Score Troponin: Troponin T < 0.010 ng/mL (0.00-0.029) 10/22/20 04:56
[2020-10-25] MEDS: methylPREDNISolone Sod Succinate 125 MG/2 ML INJ IV SCH ×3 (00:14→12:29)
[2020-10-25] MEDS: IPRATROPIUM/ALBUTEROL SULFATE 3 ML AMPUL.NEB IH SCH ×3 (07:05→14:47)
[2020-10-25] MEDS: BUDESONIDE 0.5 MG/2 ML NEBU IH SCH (08:01)
--- NOTE | 2020-10-25 08:12 | Progress Note ---
Assessment and Plan 50 y/o female with acute on chronic respiratory failure secondary to asthma exacerbation. 1. Switch to Prednisone 60 at discharge and taper as follows: 60 daily for 3 days, 40 daily for 3 days, 20 daily for 3 days then stop. 2. Resume home COPD regimen at discharge. 3. NO IVF's 4. BP control 5. Will arrange follow up as she missed her appointment on Thursday. No objection to discharge today. Subjective Date of service: 10/25/20 Interval history: No acute events. Stable. Back down to room air. Ready for discharge today. Objective Vital Signs - 12hr 10/24/20 10/24/20 10/24/20 20:45 22:26 23:00 Temperature 98.3 F Pulse Rate 96 H Pulse Rate [ 88 Bilateral] Respiratory 20 20 Rate Respiratory 18 Rate [Bilateral ] Blood Pressure 164/84 O2 Sat by Pulse 95 Oximetry 10/25/20 10/25/20 08:02 08:04 Temperature Pulse Rate Pulse Rate [ 78 Bilateral] Respiratory Rate Respiratory 18 Rate [Bilateral ] Blood Pressure O2 Sat by Pulse 99 Oximetry CBC and BMP: 10/23/20 04:34 10/23/20 04:34 ABG, PT/INR, D-dimer: PT/INR, D-dimer PT 13.2 Sec. (12.2-14.9) 10/23/20 04:34 INR 1.02 (0.87-1.13) 10/23/20 04:34 Abnormal lab findings: Abnormal Labs 10/22/20 10/22/20 10/23/20 04:56 04:56 04:34 WBC 18.6 H MCH 27 L Seg Neutrophils % 79.4 H Seg Neuts % (Manual) 92.0 H Lymphocytes % (Manual) 5.0 L Seg Neutrophils # 8.5 H Seg Neutrophils # Man 17.1 H Lymphocytes # (Manual) 0.9 L Glucose 158 H 10/23/20 04:34 WBC MCH Seg Neutrophils % Seg Neuts % (Manual) Lymphocytes % (Manual) Seg Neutrophils # Seg Neutrophils # Man Lymphocytes # (Manual) Glucose 170 H
[2020-10-25 12:27] VITALS: BP 145/75
--- NOTE | 2020-10-25 16:43 | Discharge Summary ---
Providers - Providers Date of Admission: 10/22/20 11:40 Date of discharge: 10/25/20 Attending physician: FENG NAVARRETE 10/22/20 05:47 Consult to Physician [CONS] Routine Comment: Consulting Provider: ANUSHA CAZARES Physician Instructions: Reason For Exam: Asthma Exacerbation on BIPAP [facility] Condition: Stable Hospital course: Subjective Date of service: 10/25/20 Principal diagnosis: Acute respiratory failure, hypoxia, asthma exacerbation Interval history: Patient feeling a lot better No wheezing Pulmonary consult appreciated (1) Acute respiratory failure with hypoxia Status: Acute Plan to address problem: Improved (2) Asthma with acute exacerbation in adult Status: Acute Qualifiers: Asthma severity: unspecified severity Asthma persistence: unspecified Qualified Code(s): J45.901 - Unspecified asthma with (acute) exacerbation Plan to address problem: Improved (3) Hypertension Status: Chronic Qualifiers: Hypertension type: essential hypertension Qualified Code(s): I10 - Essential (primary) hypertension Plan to address problem: Continue amlodipine (4) DVT prophylaxis Status: Acute Plan to address problem: Patient on heparin and GI prophylaxis Disposition: DC-01 TO HOME OR SELFCARE Time spent for discharge: 35 minutes - Discharge Diagnoses (1) Acute respiratory failure with hypoxia Status: Acute (2) Asthma with acute exacerbation in adult Status: Acute Qualifiers: Asthma severity: unspecified severity Asthma persistence: unspecified Qualified Code(s): J45.901 - Unspecified asthma with (acute) exacerbation (3) DVT prophylaxis Status: Acute Core Measure Documentation - Palliative Care Palliative Care/ Comfort Measures: Not Applicable - Core Measures Any of the following diagnoses?: none Exam - Constitutional Vitals: Temp Pulse Resp BP Pulse Ox 98.2 F 86 20 145/75 97 10/25/20 11:11 10/25/20 14:48 10/25/20 14:48 10/25/20 11:11 10/25/20 11:11 General appearance: Present: no acute distress, well-nourished - EENT Eyes: Present: PERRL ENT: hearing intact, clear oral mucosa - Neck Neck: Present: supple, normal ROM - Respiratory Respiratory effort: normal Respiratory: bilateral: CTA - Cardiovascular Heart rate: 78 Rhythm: regular Heart Sounds: Present: S1 & S2. Absent: rub, click - Extremities Extremities: no ischemia, pulses symmetrical, No edema Peripheral Pulses: within normal limits - Abdominal General gastrointestinal: Present: soft, non-tender, non-distended, normal bowel sounds Female genitourinary: Present: normal - Rectal Rectal Exam: deferred - Integumentary Integumentary: Present: clear, warm, dry - Musculoskeletal Musculoskeletal: gait normal, strength equal bilaterally - Psychiatric Psychiatric: appropriate mood/affect, intact judgment & insight - Neurologic Neurologic: CNII-XII intact, moves all extremities - Allied Health Allied health notes reviewed: nursing, case management Plan [facility] [Primary Care Provider[facility] - 7 Days Prescriptions: Fluticasone/Vilanterol [Breo Ellipta 200-25 Mcg INH] 25 mcg IH DAILY #1 Fluticasone [Flonase] 2 puff PO DAILY 30 Days #1 bottle levoFLOXacin [Levaquin TAB] 500 mg PO Q24HR #5 tablet Amlodipine Besylate [Norvasc] 5 mg PO QDAY #30 tablet Prednisone [predniSONE 10 mg (6-Day Pack, 21 Tabs)] 10 mg PO .TAPER #1 tab.ds.pk Montelukast [Singulair] 10 mg PO QPM #30 tablet Budesonide/Formoterol Fumarate [Symbicort 160-4.5 Mcg Inhaler] 10.2 gm IH BID #1 hfa.aer.ad
== END 2020-10-25 19:03 | disposition home or self-care (01) | DRG 189 ==
LOC: ED 04:32 → 3A 05:41 → OBSVTOIN 11:40 → 3A 19:57
PROVIDERS: ADMIT Internal Medicine Geriatric Medicine; ATTEND Internal Medicine
PROC: 5A09357 Assistance with Respiratory Ventilation, Less than 24 Consecutive Hours, Continuous Positive Airway Pressure (ICD-10-PCS; principal; 2020-10-23)
PROC: 5A09357 Assistance with Respiratory Ventilation, Less than 24 Consecutive Hours, Continuous Positive Airway Pressure (ICD-10-PCS; 2020-10-24)
DX: J96.01 Acute respiratory failure with hypoxia (principal); J45.901 Unspecified asthma with (acute) exacerbation; Z68.41 Body mass index [BMI] 40.0-44.9, adult; E66.9 Obesity, unspecified; G47.33 Obstructive sleep apnea (adult) (pediatric); J45.909 Unspecified asthma, uncomplicated; I10 Essential (primary) hypertension; Z79.899 Other long term (current) drug therapy; Z91.018 Allergy to other foods
CPT/HCPCS: 36415; 71045; 80048; 82140; 84484; 85007; 85025; 85610; 85730; 93005; 94640; 94644; 94660; 94760; G0378; J1650; J2920; J2930; J3475

== ENCOUNTER 2021-02-09 12:25 | Emergency (ER) | payer MEDICARE ==
[2021-02-09] MEDS ORDERED: IPRATROPIUM 0.02% NEBU 2.5 ML IH ONE (13:01)
[2021-02-09] MEDS ORDERED: ALBUTEROL 2.5 MG/3 ML NEBU IH ONE (13:01)
[2021-02-09] MEDS ORDERED: dexAMETHasone 20 MG/5 ML VIAL IV ONE (13:01)
--- NOTE | 2021-02-09 13:02 | Emergency Department Report ---
ED Asthma HPI - General Chief Complaint: Dyspnea/Respdistress Stated Complaint: ASTHMA Time Seen by Provider: 02/09/21 13:00 Source: patient Mode of arrival: Wheelchair Limitations: No Limitations - History of Present Illness Initial Comments: Patient is a 50-year-old female presents emergency room with complaints of an asthma exacerbation that began at 4 AM this morning. She states that she has associated shortness of breath, wheezing, mild occasional dry cough. She states that she has done 3 nebulizer treatments today without much relief. She denies any productive cough, fever, nausea, vomiting, diarrhea, chest pain, leg swelling, any other symptoms. she denies any known sick contacts or recent travel. she has an allergy to wheat. She also has a past medical history of hypertension. She states that she has been intubated 5 times secondary to her asthma but the last time was not since 2015. She states that she also uses Symbicort, Singulair, prednisone 15 mg daily, Breo at home. - Related Data Home Medications Medication Instructions Recorded Confirmed Last Taken Mepolizumab [Nucala] 1 syr IJ QMONTH 05/09/20 07/08/20 1 Month Ago ~04/08/20 Previous Rx's Medication Instructions Recorded Last Taken Type Montelukast [Singulair] 1 mg PO QPM #30 06/02/20 Unknown Rx Albuterol Mdi (or & Nicu Only) 2 puff IH Q4H PRN 30 Days 07/09/20 Unknown Rx [ProAir HFA Inhaler] Amlodipine Besylate [Norvasc] 5 mg PO QDAY #30 tablet 10/25/20 Unknown Rx Budesonide/Formoterol Fumarate 10.2 gm IH BID #1 hfa.aer.ad 10/25/20 Unknown Rx [Symbicort 160-4.5 Mcg Inhaler] Fluticasone [Flonase] 2 puff PO DAILY 30 Days #1 bottle 10/25/20 Unknown Rx Fluticasone/Vilanterol [Breo 25 mcg IH DAILY #1 10/25/20 Unknown Rx Ellipta 200-25 Mcg INH] Montelukast [Singulair] 10 mg PO QPM #30 tablet 10/25/20 Unknown Rx Prednisone [predniSONE 10 mg 10 mg PO .TAPER #1 tab.ds.pk 10/25/20 Unknown Rx (6-Day Pack, 21 Tabs)] levoFLOXacin [Levaquin TAB] 500 mg PO Q24HR #5 tablet 10/25/20 Unknown Rx predniSONE [Deltasone] 40 mg PO QDAY 5 Days #10 tablet 02/09/21 Unknown Rx Allergies Allergy/AdvReac Type Severity Reaction Status Date / Time wheat Allergy Unknown Verified 11/11/19 13:04 ED Review of Systems ROS: Stated complaint: ASTHMA Other details as noted in HPI Comment: All other systems reviewed and negative ED Past Medical Hx - Past Medical History Previous Medical History?: Yes Hx Hypertension: Yes Hx Heart Attack/AMI: No Hx Congestive Heart Failure: No Hx Diabetes: No Hx Deep Vein Thrombosis: No Hx Pulmonary Embolism: No Hx Asthma: Yes Hx COPD: No Hx Tuberculosis: No Hx HIV: No Additional medical history: (5) previous intubations due to asthma complications - Surgical History Past Surgical History?: Yes Hx Coronary Stent: No Hx Open Heart Surgery: No Hx Pacemaker: No Hx Internal Defibrillator: No Hx Cholecystectomy: No Hx Appendectomy: No Hx Breast Surgery: No Additional Surgical History: tubal ligation - Social History Smoking Status: Never Smoker Substance Use Type: None - Medications Home Medications: Home Medications Medication Instructions Recorded Confirmed Last Taken Type Mepolizumab [Nucala] 1 syr IJ QMONTH 05/09/20 07/08/20 1 Month Ago History ~04/08/20 Montelukast [Singulair] 1 mg PO QPM #30 06/02/20 07/08/20 Unknown Rx Albuterol Mdi (or & Nicu Only) 2 puff IH Q4H PRN 30 Days 07/09/20 Unknown Rx [ProAir HFA Inhaler] Amlodipine Besylate [Norvasc] 5 mg PO QDAY #30 tablet 10/25/20 Unknown Rx Budesonide/Formoterol Fumarate 10.2 gm IH BID #1 hfa.aer.ad 10/25/20 Unknown Rx [Symbicort 160-4.5 Mcg Inhaler] Fluticasone [Flonase] 2 puff PO DAILY 30 Days #1 bottle 10/25/20 Unknown Rx Fluticasone/Vilanterol [Breo 25 mcg IH DAILY #1 10/25/20 Unknown Rx Ellipta 200-25 Mcg INH] Montelukast [Singulair] 10 mg PO QPM #30 tablet 10/25/20 Unknown Rx Prednisone [predniSONE 10 mg 10 mg PO .TAPER #1 tab.ds.pk 10/25/20 Unknown Rx (6-Day Pack, 21 Tabs)] levoFLOXacin [Levaquin TAB] 500 mg PO Q24HR #5 tablet 10/25/20 Unknown Rx predniSONE [Deltasone] 40 mg PO QDAY 5 Days #10 tablet 02/09/21 Unknown Rx ED Physical Exam - General Limitations: No Limitations General appearance: alert, in no apparent distress - Head Head exam: Present: atraumatic, normocephalic - Eye Eye exam: Present: normal appearance - ENT ENT exam: Present: mucous membranes moist - Respiratory Respiratory exam: Present: wheezes (expiratory bilaterally), decreased breath sounds, prolonged expiratory, other (poor inspiration). Absent: respiratory distress, rales, rhonchi, stridor, chest wall tenderness, accessory muscle use - Cardiovascular Cardiovascular Exam: Present: regular rate, normal rhythm, normal heart sounds. Absent: systolic murmur, diastolic murmur, rubs, gallop - Neurological Exam Neurological exam: Present: alert, oriented X3 - Psychiatric Psychiatric exam: Present: normal affect, normal mood - Skin Skin exam: Present: warm, dry, intact ED Course Vital Signs 02/09/21 02/09/21 12:30 15:15 Temperature 97.9 F Pulse Rate 90 82 Respiratory 16 18 Rate Blood Pressure 144/84 Blood Pressure 140/84 [Left] O2 Sat by Pulse 99 99 Oximetry ED Medical Decision Making - Lab Data Vital Signs 02/09/21 02/09/21 12:30 15:15 Temperature 97.9 F Pulse Rate 90 82 Respiratory 16 18 Rate Blood Pressure 144/84 Blood Pressure 140/84 [Left] O2 Sat by Pulse 99 99 Oximetry - Radiology Data Radiology results: report reviewed Ordering Physician: CAITLIN CORLEY Date of Service: 02/09/21 Procedure(s): XR chest 1V ap Accession Number(s): [id number] cc: CAITLIN CORLEY Fluoro Time In Minutes: CHEST 1 VIEW INDICATION / CLINICAL INFORMATION: SOB. COMPARISON: 10/22/2020 FINDINGS: SUPPORT DEVICES: None. HEART / MEDIASTINUM: No significant abnormality. LUNGS / PLEURA: No significant pulmonary or pleural abnormality. No pneumothorax. ADDITIONAL FINDINGS: No significant additional findings. IMPRESSION: 1. No acute findings. No interval change. Signer Name: Giulia Vasquez MD Signed: 02/09/2021 1:37 PM Workstation Name: [id number] Transcribed By: Dictated By: Giulia Vasquez MD Electronically Authenticated By: Giulia Vasquez MD Signed Date/Time: 02/09/211336 DD/ 35 TD/TT: Print Cancel - Medical Decision Making Patient is a 50-year-old female presents emergency room with complaints of an asthma exacerbation that began at 4 AM this morning. She states that she has associated shortness of breath, wheezing, mild occasional dry cough. She states that she has done 3 nebulizer treatments today without much relief. She denies any productive cough, fever, nausea, vomiting, diarrhea, chest pain, leg swelling, any other symptoms. she denies any known sick contacts or recent travel. she has an allergy to wheat. She also has a past medical history of hypertension. She states that she has been intubated 5 times secondary to her asthma but the last time was not since 2015. She states that she also uses Symbicort, Singulair, prednisone 15 mg daily, Breo at home. Vitals are stable, no hypoxia, no tachycardia. On exam patient has poor air movement, expiratory wheezing bilaterally. chest x-ray: 1. No acute findings. No interval change. Patient given continuous neb treatment and steroids and symptoms improved and she was feeling better and ready to go home. On reexamination air movement has improved, she has mild expiratory bilateral wheezes, no respiratory distress, no accessory muscle use. Patient given prescription for prednisone. Advised patient Please take medication as prescribed. Please continue doing your nebulizer treatments every 4 hours as needed for shortness of breath or wheezing. Please do not use your regular daily prednisone until you have been completed your prescription from the hospital. follow-up with your primary care doctor. Return to emergency room for any new or worsening symptoms. Critical care attestation.: If time is entered above; I have spent that time in minutes in the direct care of this critically ill patient, excluding procedure time. ED Disposition Clinical Impression: Asthma exacerbation Qualifiers: Asthma severity: unspecified severity Asthma persistence: unspecified Qualified Code(s): J45.901 - Unspecified asthma with (acute) exacerbation Disposition: DC-01 TO HOME OR SELFCARE Is pt being admited?: No Does the pt Need Aspirin: No Condition: Stable Instructions: Asthma, Adult Additional Instructions: Please take medication as prescribed. Please continue doing your nebulizer treatments every 4 hours as needed for shortness of breath or wheezing. Please do not use your regular daily prednisone until you have been completed your prescription from the hospital. follow-up with your primary care doctor. Return to emergency room for any new or worsening symptoms. Prescriptions: predniSONE [Deltasone] 40 mg PO QDAY 5 Days #10 tablet Referrals: PRIMARY CARE, [Primary Care Provider] - 2-3 Days Time of Disposition: 14:36 Print Language: LITHUANIAN
--- NOTE | 2021-02-09 13:41 | XRay Report ---
CHEST 1 VIEW INDICATION / CLINICAL INFORMATION: SOB. COMPARISON: 10/22/2020 FINDINGS: SUPPORT DEVICES: None. HEART / MEDIASTINUM: No significant abnormality. LUNGS / PLEURA: No significant pulmonary or pleural abnormality. No pneumothorax. ADDITIONAL FINDINGS: No significant additional findings. IMPRESSION: 1. No acute findings. No interval change. Signer Name: Giulia Vasquez MD Signed: 02/09/2021 1:37 PM Workstation Name: [id number]
[2021-02-09 16:11] VITALS: BP 140/84
== END 2021-02-09 15:15 | disposition home or self-care (01) ==
LOC: ED 12:25
DX: J45.901 Unspecified asthma with (acute) exacerbation (principal); I10 Essential (primary) hypertension; Z98.51 Tubal ligation status; Z79.899 Other long term (current) drug therapy; Z91.018 Allergy to other foods
CPT/HCPCS: 71045; 94640; 96374; 99283; J1100

== ENCOUNTER 2021-02-15 07:32 | Inpatient (IN) | payer MEDICARE ==
[2021-02-15] MEDS ORDERED: methylPREDNISolone Sod Succinate 125 MG/2 ML INJ IV ONE (07:52)
[2021-02-15] MEDS ORDERED: ALBUTEROL 2.5 MG/3 ML NEBU IH ONE (07:52)
[2021-02-15] MEDS ORDERED: EPINEPHrine/PF 1 MG/1 ML INJ SUB-Q ONE ×2 (07:52→09:39)
[2021-02-15] MEDS ORDERED: LACTATED RINGERS 500 ML IV ONE (07:52)
[2021-02-15] MEDS ORDERED: MAGNESIUM SULFATE 2 GM/50 ML BAG IV ONE (07:52)
[2021-02-15] MEDS ORDERED: IPRATROPIUM 0.02% NEBU 2.5 ML IH ONE (07:52)
--- NOTE | 2021-02-15 07:54 | Emergency Department Report ---
ED General Adult HPI - General Chief complaint: Dyspnea/Respdistress Stated complaint: ASTHMA PUI?: No Time Seen by Provider: 02/15/21 07:36 Source: patient, EMS ( EMS documentation not available at time of chart dictatio n ), RN notes reviewed, old records reviewed Mode of arrival: Stretcher Limitations: Physical Limitation - History of Present Illness Initial comments: The patient was evaluated in the emergency department for symptoms described in the history of present illness. He/she was evaluated in the context of the g lobal COVID-19 pandemic, which necessitated consideration that the patient might be at risk for infection with the virus that causes COVID-19. Institutional protocols and algorithms that pertain to the evaluation of patients at risk for COVID-19 are in a state of rapid change based on information released by regulatory bodies including the CDC and federal and state organizations. These policies and algorithms were followed during the patient's care in the emergency department. Please note that these policies, procedures and recommendations changed on a rapid basis. Pulmonology: Dr. Leonard Past medical history asthma, obesity, obstructive sleep apnea, patient reports intermittent/noncompliance with CPAP at night. This is a pleasant 50-year-old female. I have evaluated her in the past. She is brought to the hospital by emergency medical services with a complaint of painless shortness of breath and wheezing. Symptoms started last night. She denies physical pain. She denies travel, surgery, leg pain, leg swelling, oral contraceptive use, , and DVT and pulmonary embolism risk factors. She reports this is similar to prior episodes of asthma exacerbations and flares, and reports cold weather, change of seasons, and local seasonal allergies is probable triggers. She was given 2.5 mg of albuterol by EMS. She reportedly took 7.5 mg of albuterol at home. Currently, shortness of breath is constant, worsens with physical exertion, decreases with rest and position. She denies additional injuries and complaints. Of note, she was seen in this department a few days ago for similar symptoms, and had a chest x-ray which was fairly unremarkable. -: Gradual, days(s) Consistency: constant Improves with: medication, rest Worsens with: movement - Related Data Home Medications Medication Instructions Recorded Confirmed Last Taken Mepolizumab [Nucala] 1 syr IJ QMONTH 05/09/20 07/08/20 1 Month Ago ~04/08/20 Previous Rx's Medication Instructions Recorded Last Taken Type Montelukast [Singulair] 1 mg PO QPM #30 06/02/20 Unknown Rx Albuterol Mdi (or & Nicu Only) 2 puff IH Q4H PRN 30 Days 07/09/20 Unknown Rx [ProAir HFA Inhaler] Amlodipine Besylate [Norvasc] 5 mg PO QDAY #30 tablet 10/25/20 Unknown Rx Budesonide/Formoterol Fumarate 10.2 gm IH BID #1 hfa.aer.ad 10/25/20 Unknown Rx [Symbicort 160-4.5 Mcg Inhaler] Fluticasone [Flonase] 2 puff PO DAILY 30 Days #1 bottle 10/25/20 Unknown Rx Fluticasone/Vilanterol [Breo 25 mcg IH DAILY #1 10/25/20 Unknown Rx Ellipta 200-25 Mcg INH] Montelukast [Singulair] 10 mg PO QPM #30 tablet 10/25/20 Unknown Rx Prednisone [predniSONE 10 mg 10 mg PO .TAPER #1 tab.ds.pk 10/25/20 Unknown Rx (6-Day Pack, 21 Tabs)] levoFLOXacin [Levaquin TAB] 500 mg PO Q24HR #5 tablet 10/25/20 Unknown Rx predniSONE [Deltasone] 40 mg PO QDAY 5 Days #10 tablet 02/09/21 Unknown Rx Allergies Allergy/AdvReac Type Severity Reaction Status Date / Time wheat Allergy Unknown Verified 11/11/19 13:04 ED Review of Systems ROS: Stated complaint: ASTHMA Other details as noted in HPI Constitutional: other (Patient denies loss of taste and smell). denies: fever Eyes: denies: eye discharge ENT: denies: congestion Respiratory: shortness of breath, SOB with exertion, SOB at rest, wheezing Cardiovascular: denies: chest pain Gastrointestinal: denies: abdominal pain Musculoskeletal: denies: back pain Neurological: weakness Psychiatric: anxiety Hematological/Lymphatic: denies: easy bleeding ED Past Medical Hx - Past Medical History Hx Hypertension: Yes Hx Heart Attack/AMI: No Hx Congestive Heart Failure: No Hx Diabetes: No Hx Deep Vein Thrombosis: No Hx Pulmonary Embolism: No Hx Asthma: Yes Hx COPD: No Hx Tuberculosis: No Hx HIV: No Additional medical history: (5) previous intubations due to asthma complications - Surgical History Hx Coronary Stent: No Hx Open Heart Surgery: No Hx Pacemaker: No Hx Internal Defibrillator: No Hx Cholecystectomy: No Hx Appendectomy: No Hx Breast Surgery: No Additional Surgical History: tubal ligation - Social History Smoking Status: Never Smoker Substance Use Type: None - Medications Home Medications: Home Medications Medication Instructions Recorded Confirmed Last Taken Type Mepolizumab [Nucala] 1 syr IJ QMONTH 05/09/20 07/08/20 1 Month Ago History ~04/08/20 Montelukast [Singulair] 1 mg PO QPM #30 06/02/20 07/08/20 Unknown Rx Albuterol Mdi (or & Nicu Only) 2 puff IH Q4H PRN 30 Days 07/09/20 Unknown Rx [ProAir HFA Inhaler] Amlodipine Besylate [Norvasc] 5 mg PO QDAY #30 tablet 10/25/20 Unknown Rx Budesonide/Formoterol Fumarate 10.2 gm IH BID #1 hfa.aer.ad 10/25/20 Unknown Rx [Symbicort 160-4.5 Mcg Inhaler] Fluticasone [Flonase] 2 puff PO DAILY 30 Days #1 bottle 10/25/20 Unknown Rx Fluticasone/Vilanterol [Breo 25 mcg IH DAILY #1 10/25/20 Unknown Rx Ellipta 200-25 Mcg INH] Montelukast [Singulair] 10 mg PO QPM #30 tablet 10/25/20 Unknown Rx Prednisone [predniSONE 10 mg 10 mg PO .TAPER #1 tab.ds.pk 10/25/20 Unknown Rx (6-Day Pack, 21 Tabs)] levoFLOXacin [Levaquin TAB] 500 mg PO Q24HR #5 tablet 10/25/20 Unknown Rx predniSONE [Deltasone] 40 mg PO QDAY 5 Days #10 tablet 02/09/21 Unknown Rx ED Physical Exam - General Limitations: Physical Limitation General appearance: alert, anxious, in distress, obese - Head Head exam: Present: atraumatic, normocephalic - Eye Eye exam: Present: normal appearance, EOMI. Absent: nystagmus - ENT ENT exam: Present: normal exam, normal orophraynx, mucous membranes moist, normal external ear exam - Neck Neck exam: Present: normal inspection, full ROM. Absent: tenderness, meningismus - Respiratory Respiratory exam: Present: respiratory distress, wheezes, rhonchi, accessory muscle use - Cardiovascular Cardiovascular Exam: Present: normal rhythm, tachycardia, normal heart sounds. Absent: bradycardia, irregular rhythm, systolic murmur, diastolic murmur, rubs, gallop - GI/Abdominal GI/Abdominal exam: Present: soft. Absent: distended, tenderness, guarding, rebound, rigid, pulsatile mass - Extremities Exam Extremities exam: Present: normal inspection, full ROM, other (2+ pulses noted in the bilateral upper and lower extremities. There is no palpable cord. negative Homans sign. Muscular compartments are soft. The pelvis is stable.). Absent: pedal edema, calf tenderness - Back Exam Back exam: Present: normal inspection, full ROM. Absent: tenderness, CVA tenderness (R), CVA tenderness (L), paraspinal tenderness, vertebral tenderness - Neurological Exam Neurological exam: Present: alert, other (No facial droop. Tongue midline. Extraocular movements intact bilaterally. Facial sensation intact to light t ouch in V1, V2, V3 distribution bilaterally. 5 and a 5 strength in 4 extremities. Sensation intact to light touch in 4 extremities.). Absent: motor sensory deficit - Psychiatric Psychiatric exam: Present: normal affect, normal mood - Skin Skin exam: Present: warm, dry, intact, normal color. Absent: rash ED Course Vital Signs 02/15/21 02/15/21 02/15/21 07:39 07:46 07:58 Temperature 98.4 F Pulse Rate 116 H 116 H Pulse Rate [ Anterior Bilateral Throughout] Pulse Rate [ Anterior Bilateral] Respiratory 17 16 Rate Respiratory Rate [Anterior Bilateral Throughout] Respiratory Rate [Anterior Bilateral] Blood Pressure 155/79 O2 Sat by Pulse 100 98 Oximetry 02/15/21 02/15/21 02/15/21 08:01 08:31 09:01 Temperature Pulse Rate 115 H 120 H 122 H Pulse Rate [ Anterior Bilateral Throughout] Pulse Rate [ Anterior Bilateral] Respiratory 17 18 18 Rate Respiratory Rate [Anterior Bilateral Throughout] Respiratory Rate [Anterior Bilateral] Blood Pressure 155/79 127/82 140/81 O2 Sat by Pulse 100 100 99 Oximetry 02/15/21 02/15/21 02/15/21 09:03 09:31 10:01 Temperature Pulse Rate 119 H 111 H 132 H Pulse Rate [ 115 H Anterior Bilateral Throughout] Pulse Rate [ 118 H Anterior Bilateral] Respiratory 18 23 19 Rate Respiratory 26 H Rate [Anterior Bilateral Throughout] Respiratory 22 Rate [Anterior Bilateral] Blood Pressure 156/85 156/85 137/81 O2 Sat by Pulse 98 99 99 Oximetry 02/15/21 11:49 Temperature Pulse Rate 132 H Pulse Rate [ Anterior Bilateral Throughout] Pulse Rate [ Anterior Bilateral] Respiratory 25 H Rate Respiratory Rate [Anterior Bilateral Throughout] Respiratory Rate [Anterior Bilateral] Blood Pressure 176/83 O2 Sat by Pulse 99 Oximetry - Reevaluation(s) Reevaluation #1: 02/15/21 07:57 Differential diagnosis, including but not limited to: Asthma exacerbation, reactive airways disease exacerbation, noncompliance, obesity, hypertension Assessment and plan: 50-year-old female, with probable asthma/reactive airways disease exacerbation. She denies DVT and pulmonary embolism risk factors. Ta chycardia is likely secondary to albuterol administration. This is similar to prior presentations in which I have personally evaluated this patient. EMS unable to obtain IV access. We will start albuterol, Atrovent, steroids, magnesium, fluids, subcutaneous epinephrine, and reassess. I discussed this plan of care with the patient, who verbalized understanding, and was amenable to this plan of care. Patient strongly encouraged to remain compliant with nocturnal CPAP. She has articulated understanding. Elevated blood pressure is chronic. It does not appear to be acutely decompensated. Please reference the [employer] clinical policy on asymptomatic hypertension. 02/15/21 08:43 Patient still wheezing but appears to be somewhat improved. However, she states that she still feeling short of breath, and is requesting BiPAP. Given that she has been intubated x5 in the past, I would rather treat her more aggressively than less so. BiPAP ordered. 02/15/21 09:39 Patient still wheezing on BiPAP. Is requesting admission. Given history of intubations, persistent wheezing and persistent symptomatology, I think this plan of care is reasonable. We have requested labs, ABG, x-ray of the chest, EKG. We will discuss with hospital medicine. 02/15/21 10:20 Arterial blood gas: pH 7.37, PaCO2 39, PaO2 121 Dr Weinberg to admit Leukocytosis likely secondary to stress reaction/demargination. ED Medical Decision Making - Lab Data Result diagrams: 02/15/21 09:54 02/15/21 09:54 Vital Signs 02/15/21 07:39 Pulse Rate 116 H Respiratory 17 Rate Blood Pressure 155/79 O2 Sat by Pulse 100 Oximetry Vital Signs 02/15/21 02/15/21 02/15/21 07:39 07:46 07:58 Temperature 98.4 F Pulse Rate 116 H 116 H Pulse Rate [ Anterior Bilateral Throughout] Pulse Rate [ Anterior Bilateral] Respiratory 17 16 Rate Respiratory Rate [Anterior Bilateral Throughout] Respiratory Rate [Anterior Bilateral] Blood Pressure 155/79 O2 Sat by Pulse 100 98 Oximetry 02/15/21 02/15/21 02/15/21 08:01 08:31 09:01 Temperature Pulse Rate 115 H 120 H 122 H Pulse Rate [ Anterior Bilateral Throughout] Pulse Rate [ Anterior Bilateral] Respiratory 17 18 18 Rate Respiratory Rate [Anterior Bilateral Throughout] Respiratory Rate [Anterior Bilateral] Blood Pressure 155/79 127/82 140/81 O2 Sat by Pulse 100 100 99 Oximetry 02/15/21 02/15/21 02/15/21 09:03 09:31 10:01 Temperature Pulse Rate 119 H 111 H 132 H Pulse Rate [ 115 H Anterior Bilateral Throughout] Pulse Rate [ 118 H Anterior Bilateral] Respiratory 18 23 19 Rate Respiratory 26 H Rate [Anterior Bilateral Throughout] Respiratory 22 Rate [Anterior Bilateral] Blood Pressure 156/85 156/85 137/81 O2 Sat by Pulse 98 99 99 Oximetry 02/15/21 11:49 Temperature Pulse Rate 132 H Pulse Rate [ Anterior Bilateral Throughout] Pulse Rate [ Anterior Bilateral] Respiratory 25 H Rate Respiratory Rate [Anterior Bilateral Throughout] Respiratory Rate [Anterior Bilateral] Blood Pressure 176/83 O2 Sat by Pulse 99 Oximetry Lab Results 02/15/21 02/15/21 02/15/21 Range/Units 09:54 09:54 09:54 WBC 13.5 H (4.5-11.0) K/mm3 RBC 4.29 (3.65-5.03) M/mm3 Hgb 11.8 (10.1-14.3) gm/dl Hct 37.0 (30.3-42.9) % MCV 86 (79-97) fl MCH 27 L (28-32) pg MCHC 32 (30-34) % RDW 14.6 (13.2-15.2) % Plt Count 269 (140-440) K/mm3 PT 12.7 (12.2-14.9) Sec. INR 0.96 (0.87-1.13) Sodium 138 (137-145) mmol/L Potassium 3.6 (3.6-5.0) mmol/L Chloride 103.8 (98-107) mmol/L Carbon Dioxide 23 (22-30) mmol/L Anion Gap 15 mmol/L BUN 14 (7-17) mg/dL Creatinine 0.8 (0.6-1.2) mg/dL Estimated GFR > 60 ml/min BUN/Creatinine Ratio 18 % Glucose 180 H (65-100) mg/dL Calcium 8.5 (8.4-10.2) mg/dL - EKG Data -: EKG Interpreted by Tn EKG shows normal: sinus rhythm Rate: normal - EKG Data 02/15/21 10:21 Sinus rhythm, tachycardia, 112 bpm. Normal axis, QTC 464 ms, borderline left ventricular hypertrophy, PVC, motion artifact. Not a STEMI. Time of interpretation, 9: 41 AM - Radiology Data Radiology results: pending, report reviewed, image reviewed X-ray of the chest interpreted as negative for acute findings Critical Care Time: Yes Critical care time in (mins) excluding proc time.: 35 Critical care attestation.: If time is entered above; I have spent that time in minutes in the direct care of this critically ill patient, excluding procedure time. ED Disposition Clinical Impression: Bronchospasm with bronchitis, acute, OBDULIA (obstructive sleep apnea), Obesity (BMI 30-39.9) Asthma exacerbation Qualifiers: Asthma severity: severe Asthma persistence: unspecified Qualified Code(s): J45.901 - Unspecified asthma with (acute) exacerbation Disposition: OP ADMIT IP TO THIS HOSP Is pt being admited?: Yes Does the pt Need Aspirin: No Condition: Serious
--- NOTE | 2021-02-15 10:14 | XRay Report ---
CHEST 1 VIEW 02/15/2021 9:39 AM INDICATION / CLINICAL INFORMATION: acute dyspnea. COMPARISON: 02/09/2021. FINDINGS: SUPPORT DEVICES: None. HEART / MEDIASTINUM: Stable. LUNGS / PLEURA: No significant pulmonary or pleural abnormality. Mild blunting remains at the right c ostophrenic angle. ADDITIONAL FINDINGS: No significant additional findings. IMPRESSION: No acute abnormality. Signer Name: Nacho Goodson MD Signed: 02/15/2021 10:10 AM Workstation Name: [id number]
[2021-02-15 10:16] LABS: Hemoglobin 11.8 gm/dl (10.1-14.3); Mean Corpuscular HGB Conc 32 % (30-34); Mean Corpuscular Volume 86 fl (79-97); Platelet Count 269 K/mm3 (140-440); Red Blood Count 4.29 M/mm3 (3.65-5.03); Red Cell Distribution Width 14.6 % (13.2-15.2)
[2021-02-15 10:24] LABS: INR 0.96 (0.87-1.13)
[2021-02-15] MEDS ORDERED: ALBUTEROL 8.5 GM MDI INHALATION IH PRN (10:48)
--- NOTE | 2021-02-15 10:48 | History and Physical Report ---
History of Present Illness Date of examination: 02/15/21 Date of admission: 02/15/2021 Chief complaint: Worsening shortness of breath since last night History of present illness: This is a pleasant 50-year-old female. I have evaluated her in the past. She is brought to the hospital by emergency medical services with a complaint of painless shortness of breath and wheezing. Symptoms started last night. She denies physical pain. She denies travel, surgery, leg pain, leg swelling, oral contraceptive use, , and DVT and pulmonary embolism risk factors. She reports this is similar to prior episodes of asthma exacerbations and flares, and reports cold weather, change of seasons, and local seasonal allergies is probable triggers. She was given 2.5 mg of albuterol by EMS. She reportedly took 7.5 mg of albuterol at home. Currently, shortness of breath is constant, worsens with physical exertion, decreases with rest and position. She denies additional injuries and complaints. Of note, she was seen in this department a few days ago for similar symptoms, and had a chest x-ray which was fairly unremarkable. Past History Past Medical History: hypertension, other (Bronchial asthma) Medications and Allergies Allergies Allergy/AdvReac Type Severity Reaction Status Date / Time wheat Allergy Unknown Verified 11/11/19 13:04 Home Medications Medication Instructions Recorded Confirmed Last Taken Type Mepolizumab [Nucala] 1 syr IJ QMONTH 05/09/20 07/08/20 1 Month Ago History ~04/08/20 Montelukast [Singulair] 1 mg PO QPM #30 06/02/20 07/08/20 Unknown Rx Albuterol Mdi (or & Nicu Only) 2 puff IH Q4H PRN 30 Days 07/09/20 Unknown Rx [ProAir HFA Inhaler] Amlodipine Besylate [Norvasc] 5 mg PO QDAY #30 tablet 10/25/20 Unknown Rx Budesonide/Formoterol Fumarate 10.2 gm IH BID #1 hfa.aer.ad 10/25/20 Unknown Rx [Symbicort 160-4.5 Mcg Inhaler] Fluticasone [Flonase] 2 puff PO DAILY 30 Days #1 bottle 10/25/20 Unknown Rx Fluticasone/Vilanterol [Breo 25 mcg IH DAILY #1 12/03/20 Unknown Rx Ellipta 200-25 Mcg INH] Montelukast [Singulair] 10 mg PO QPM #30 tablet 10/25/20 Unknown Rx Prednisone [predniSONE 10 mg 10 mg PO .TAPER #1 tab.ds.pk 10/25/20 Unknown Rx (6-Day Pack, 21 Tabs)] levoFLOXacin [Levaquin TAB] 500 mg PO Q24HR #5 tablet 10/25/20 Unknown Rx predniSONE [Deltasone] 40 mg PO QDAY 5 Days #10 tablet 02/09/21 Unknown Rx Review of Systems Constitutional: weakness, no weight loss, no weight gain, no fever, no chills Ears, nose, mouth and throat: nasal congestion, nasal discharge Cardiovascular: shortness of breath, no chest pain, no orthopnea, no palpitations Respiratory: cough, shortness of breath, dyspnea on exertion Gastrointestinal: no nausea, no vomiting, no diarrhea Genitourinary Female: no flank pain, no dysuria Musculoskeletal: no myalgias, no arthritis Integumentary: no rash, no lesions Neurological: weakness, no paralysis, no numbness, no tingling Psychiatric: no anxiety, no depression Endocrine: no cold intolerance, no heat intolerance Hematologic/Lymphatic: no easy bruising, no easy bleeding Allergic/Immunologic: no urticaria, no allergic rhinitis Exam - Constitutional Vitals: Temp Pulse Resp BP Pulse Ox 98.4 F 132 H 19 137/81 99 02/15/21 07:58 02/15/21 10:01 02/15/21 10:01 02/15/21 10:01 02/15/21 10:01 General appearance: Present: mild distress, well-nourished, obese - EENT Eyes: Present: PERRL, EOM intact - Neck Neck: Present: supple, normal ROM - Respiratory Respiratory effort: normal Respiratory: bilateral: diminished, negative: rales, rhonchi, wheezing - Cardiovascular Rhythm: regular Heart Sounds: Present: S1 & S2 - Extremities Extremities: no ischemia, No edema - Abdominal General gastrointestinal: Present: soft, non-tender, non-distended, normal bowel sounds - Integumentary Integumentary: Present: clear, warm - Musculoskeletal Musculoskeletal: strength equal bilaterally, generalized weakness - Psychiatric Psychiatric: appropriate mood/affect, cooperative - Neurologic Neurologic: CNII-XII intact, moves all extremities Results - Labs CBC & Chem 7: 02/15/21 09:54 02/15/21 09:54 Labs: Abnormal lab results 02/15/21 Range/Units 09:54 WBC 13.5 H (4.5-11.0) K/mm3 MCH 27 L (28-32) pg Assessment and Plan --Acute hypoxic respiratory failure; Secondary to bronchial asthma exacerbation Requiring BiPAP, titrate O2 sats more than 90% Supportive care, home oxygen evaluation --Acute exacerbation of bronchial asthma; Oxygen titrate O2 sats more than 90%, BiPAP as needed If no improvement, intubated and placed on mechanical ventilation Nebulizers, IV steroids, inhalation steroids, IV antibiotics Pulmonary consultation --SIRS; Tachypnea, tachycardia, leukocytosis Continue current management, no organ failure --Acute bronchitis/pneumonitis Bronchodilators, IV antibiotics, follow cultures --Obesity; BMI 33.3, need weight reduction when medically stable --Hypertension; moderate control Continue current antihypertensives and as needed medications --DVT prophylaxis; Lovenox subcu --We will closely monitor the patient and adjust management as needed We will closely monitor patient and adjust management as needed Plan of care reviewed with patient and her nurse
[2021-02-15] MEDS ORDERED: ALBUTEROL 2.5 MG/3 ML NEBU IH PRN (10:52)
[2021-02-15 11:10] LABS: BUN/Creatinine Ratio 18; Blood Urea Nitrogen 14 mg/dL (7-17); Calcium 8.5 mg/dL (8.4-10.2); Hemolysis Index 13
[2021-02-15] MEDS: IPRATROPIUM/ALBUTEROL SULFATE 3 ML AMPUL.NEB IH SCH ×3 (11:51→21:09)
[2021-02-15] MEDS: methylPREDNISolone Sod Succinate 125 MG/2 ML INJ IV SCH ×2 (14:09→21:41)
[2021-02-15] MEDS: MONTELUKAST 10 MG TAB PO SCH (18:11)
[2021-02-15] MEDS ORDERED: BUDESONIDE 0.25 MG/2 ML NEBU IH SCH (20:00)
[2021-02-15] MEDS: ARFORMOTEROL 15 MCG/2 ML NEBU IH SCH (21:09)
[2021-02-15] MEDS: BUDESONIDE 0.25 MG/2 ML NEBU IH SCH (21:10)
[2021-02-15] MEDS: ENOXAPARIN 40 MG/0.4 ML INJ SUB-Q SCH (21:41)
[2021-02-15] MEDS ORDERED: NON-FORMULARY EACH (Budesonide/Formoterol Fumarate [Symbicort 160-4.5 Mcg Inhaler] 10.2 GM IH SCH (22:00)
[2021-02-16] MEDS: IPRATROPIUM/ALBUTEROL SULFATE 3 ML AMPUL.NEB IH SCH ×6 (00:24→21:46)
[2021-02-16] MEDS: methylPREDNISolone Sod Succinate 125 MG/2 ML INJ IV SCH ×3 (05:40→21:26)
[2021-02-16] MEDS: BUDESONIDE 0.25 MG/2 ML NEBU IH SCH ×2 (08:05→21:49)
[2021-02-16] MEDS: ARFORMOTEROL 15 MCG/2 ML NEBU IH SCH ×2 (08:06→21:48)
[2021-02-16] MEDS: CETIRIZINE 10 MG TAB PO SCH (10:43)
[2021-02-16] MEDS: amLODIPine 5 MG TAB PO SCH (10:43)
--- NOTE | 2021-02-16 11:25 | Progress Note ---
Assessment and Plan Assessment and plan: --Acute hypoxic respiratory failure; Secondary to bronchial asthma exacerbation Requiring BiPAP, titrate O2 sats more than 90% Supportive care, home oxygen evaluation --Acute exacerbation of bronchial asthma; Oxygen titrate O2 sats more than 90%, BiPAP as needed If no improvement, intubated and placed on mechanical ventilation Nebulizers, IV steroids, inhalation steroids, IV antibiotics Pulmonary consultation --SIRS; Tachypnea, tachycardia, leukocytosis Continue current management, no organ failure --Acute bronchitis/pneumonitis Bronchodilators, IV antibiotics, follow cultures --Obesity;BMI 33.3, Patient need weight reduction when medically stable --Hypertension; moderate control Continue current antihypertensives and as needed medications --DVT prophylaxis; Lovenox subcu --We will closely monitor the patient and adjust management as needed We will closely monitor patient and adjust management as needed Plan of care reviewed with patient and her nurse Brief history; 50-year-old -[place] female patient well-known to our service, multiple admissions in the past With history of bronchial asthma, with intermittent episodes of acute exacerbation, never intubated in the past Was admitted through emergency room with worsening shortness of breath and worsening wheeze. Patient was found to be severely hypoxemic Upon arrival to the ER requiring continuous BiPAP for many hours. Patient has bronchial asthma exacerbation, being managed appropriately with nebulizers IV steroids inhalation steroids and supportive care, pulmonary consulted. 02/16/2021; patient feels slightly better since yesterday, respiratory therapist in front of me remove the BiPAP and checked room air O2 sat Continue nebulizers tapering dose of steroids inhalation steroids antibiotics, follow cultures, home oxygen evaluation discharge Pulmonary consulted, follow evaluation recommendations History Interval history: I have seen and examined the patient at the bedside this morning Patient's chart and medications reviewed, patient is receiving BiPAP Respiratory therapist remove the BiPAP, briefly saturating 100% on 2 to 3 L of nasal cannula oxygen Patient feels slightly better , still has severe shortness of breath intermittent Vital signs noted Hospitalist Physical - Constitutional Vitals: Temp Pulse Resp BP Pulse Ox 98.7 F 81 18 105/54 96 02/16/21 09:06 02/16/21 10:43 02/16/21 09:06 02/16/21 10:43 02/16/21 09:06 General appearance: Present: mild distress, well-nourished, obese - EENT Eyes: Present: PERRL, EOM intact - Neck Neck: Present: supple - Respiratory Respiratory effort: normal Respiratory: bilateral: diminished, rhonchi, wheezing, negative: rales - Cardiovascular Rhythm: regular Heart Sounds: Present: S1 & S2 - Extremities Extremities: no ischemia, No edema - Abdominal General gastrointestinal: soft, non-tender, non-distended, normal bowel sounds - Integumentary Integumentary: Present: clear, warm - Psychiatric Psychiatric: appropriate mood/affect, cooperative - Neurologic Neurologic: CNII-XII intact, moves all extremities Results - Labs CBC & Chem 7: 02/15/21 09:54 02/15/21 09:54 Labs: Laboratory Last Values WBC 13.5 K/mm3 (4.5-11.0) H 02/15/21 09:54 RBC 4.29 M/mm3 (3.65-5.03) 02/15/21 09:54 Hgb 11.8 gm/dl (10.1-14.3) 02/15/21 09:54 Hct 37.0 % (30.3-42.9) 02/15/21 09:54 MCV 86 fl (79-97) 02/15/21 09:54 MCH 27 pg (28-32) L 02/15/21 09:54 MCHC 32 % (30-34) 02/15/21 09:54 RDW 14.6 % (13.2-15.2) 02/15/21 09:54 Plt Count 269 K/mm3 (140-440) 02/15/21 09:54 PT 12.7 Sec. (12.2-14.9) 02/15/21 09:54 INR 0.96 (0.87-1.13) 02/15/21 09:54 ABG pH 7.369 (7.320-7.450) 02/15/21 10:24 POC ABG pCO2 39.9 mmHg (32.0-48.0) 02/15/21 10:24 POC ABG pO2 121.0 mmHg (83-108) H 02/15/21 10:24 POC ABG HCO3 22.5 02/15/21 10:24 ABG O2 Saturation 98.7 (0-100) 02/15/21 10:24 POC ABG Base Excess -2.6 02/15/21 10:24 ABG Hemoglobin 12.6 (12.0-17.5) 02/15/21 10:24 ABG Oxyhemoglobin 97.7 (94-98) 02/15/21 10:24 ABG Methemoglobin 0.1 (0.0-1.5) 02/15/21 10:24 ABG Sodium 136.9 mmol/L (136.0-145.0) 02/15/21 10:24 ABG Potassium 3.6 mmol/L (3.40-4.50) 02/15/21 10:24 ABG Chloride 104.0 mmol/L (98-107) 02/15/21 10:24 ABG Glucose 183 mg/dL (65-95) H 02/15/21 10:24 Carboxyhemoglobin 0.9 (0.5-1.5) 02/15/21 10:24 FiO2 % 30.0 02/15/21 10:24 Sodium 138 mmol/L (137-145) 02/15/21 09:54 Potassium 3.6 mmol/L (3.6-5.0) 02/15/21 09:54 Chloride 103.8 mmol/L (98-107) 02/15/21 09:54 Carbon Dioxide 23 mmol/L (22-30) 02/15/21 09:54 Anion Gap 15 mmol/L 02/15/21 09:54 BUN 14 mg/dL (7-17) 02/15/21 09:54 Creatinine 0.8 mg/dL (0.6-1.2) 02/15/21 09:54 Estimated GFR > 60 ml/min 02/15/21 09:54 BUN/Creatinine Ratio 18 % 02/15/21 09:54 Glucose 180 mg/dL (65-100) H 02/15/21 09:54 Calcium 8.5 mg/dL (8.4-10.2) 02/15/21 09:54 Magnesium 2.60 mg/dL (1.7-2.3) H 02/15/21 09:54 Total Creatine Kinase 102 units/L (30-135) 02/15/21 09:54 Arterial Blood Glucose 183 mg/dL (65-95) H 02/15/21 10:24 Arterial Blood Ionized Calcium 4.6 mg/dL (4.6-5.3) 02/15/21 10:24 [place]/IV: Voiding Method Bedside Commode Active Medications - Current Medications Current Medications: Generic Name Dose Route Start Last Admin Trade Name Freq PRN Reason Stop Dose Admin Albuterol 2.5 mg 02/15/21 10:52 Albuterol 2.5 Mg/3 Ml Nebu IH Q4HRT PRN Shortness Of Breath Albuterol/Ipratropium 1 ampul 02/15/21 12:00 02/16/21 08:06 Ipratropium/Albuterol Sulfate 3 Ml Ampul.Neb IH 1 ampul Q4HRT JOSE D Administration Amlodipine Besylate 5 mg 02/16/21 10:00 02/16/21 10:43 Amlodipine 5 Mg Tab PO 5 mg QDAY JOSE D Administration Arformoterol Tartrate 15 mcg 02/15/21 20:00 02/16/21 08:06 Arformoterol 15 Mcg/2 Ml Nebu IH 15 mcg Q12HRT JOSE D Administration Budesonide 0.5 mg 02/15/21 20:00 02/16/21 08:05 Budesonide 0.25 Mg/2 Ml Nebu IH 0.5 mg Q12HRT JOSE D Administration Cetirizine HCl 10 mg 02/16/21 10:00 02/16/21 10:43 Cetirizine 10 Mg Tab PO 10 mg QDAY JOSE D Administration Enoxaparin Sodium 40 mg 02/15/21 22:00 02/15/21 21:41 Enoxaparin 40 Mg/0.4 Ml Inj SUB-Q 40 mg QDAY@2200 JOSE D Administration Protocol Levofloxacin/Dextrose 750 mg in 150 mls @ 100 mls/hr 02/15/21 18:00 02/15/21 18:11 Levaquin 750mg/150ml IV 100 mls/hr Q24H JOSE D Administration Protocol Methylprednisolone Sodium Succinate 80 mg 02/15/21 14:00 02/16/21 05:40 Methylprednisolone Sod Succinate 125 Mg/2 Ml Inj IV 80 mg Q8HR JOSE D Administration Montelukast Sodium 10 mg 02/15/21 18:00 02/15/21 18:11 Montelukast 10 Mg Tab PO 10 mg QPM JOSE D Administration
--- NOTE | 2021-02-16 13:34 | Consultation ---
History of Present Illness Consult date: 02/16/21 Requesting physician: CORINE RAO Reason for consult: asthma, hypoxemia History of present illness: 50 y/o female, well known to us, follows with Bessie admitted with acute respiratory failure secondary to asthma exacerbation. Patient has been in [facility] since September and just came back to [place] about 3 weeks ago. This most recent bout is secondary to the influx of pollen in the area over the last several days. She did require bipap briefly but has since been weaned off. Remainder is negative. Past History Past Medical History: hypertension, other (Bronchial asthma) Medications and Allergies Allergies Allergy/AdvReac Type Severity Reaction Status Date / Time wheat Allergy Unknown Verified 11/11/19 13:04 Home Medications Medication Instructions Recorded Confirmed Last Taken Type Mepolizumab [Nucala] 1 syr IJ QMONTH 05/09/20 02/17/21 1 Month Ago History ~04/08/20 Montelukast [Singulair] 1 mg PO QPM #30 06/02/20 02/17/21 Unknown Rx Albuterol Mdi (or & Nicu Only) 2 puff IH Q4H PRN 30 Days 07/09/20 02/17/21 Unknown Rx [ProAir HFA Inhaler] Amlodipine Besylate [Norvasc] 5 mg PO QDAY #30 tablet 10/25/20 02/17/21 Unknown Rx Budesonide/Formoterol Fumarate 10.2 gm IH BID #1 hfa.aer.ad 10/25/20 02/17/21 Unknown Rx [Symbicort 160-4.5 Mcg Inhaler] Fluticasone [Flonase] 2 puff PO DAILY 30 Days #1 bottle 10/25/20 02/17/21 Unknown Rx Fluticasone/Vilanterol [Breo 25 mcg IH DAILY #1 10/25/20 02/17/21 Unknown Rx Ellipta 200-25 Mcg INH] Montelukast [Singulair] 10 mg PO QPM #30 tablet 10/25/20 02/17/21 Unknown Rx Prednisone [predniSONE 10 mg 10 mg PO .TAPER #1 tab.ds.pk 10/25/20 02/17/21 Unknown Rx (6-Day Pack, 21 Tabs)] levoFLOXacin [Levaquin TAB] 500 mg PO Q24HR #5 tablet 10/25/20 02/17/21 Unknown Rx predniSONE [Deltasone] 40 mg PO QDAY 5 Days #10 tablet 02/09/21 02/17/21 Unknown Rx Active Meds: Active Medications Albuterol (Albuterol 2.5 Mg/3 Ml Nebu) 2.5 mg IH Q4HRT PRN PRN Reason: Shortness Of Breath Albuterol/Ipratropium (Ipratropium/Albuterol Sulfate 3 Ml Ampul.Neb) 1 ampul IH Q4HRT [facility] Last Admin: 02/16/21 11:46 Dose: 1 ampul Documented by: Amlodipine Besylate (Amlodipine 5 Mg Tab) 5 mg PO QDAY [facility] Last Admin: 02/16/21 10:43 Dose: 5 mg Documented by: Arformoterol Tartrate (Arformoterol 15 Mcg/2 Ml Nebu) 15 mcg IH Q12HRT [facility] Last Admin: 02/16/21 08:06 Dose: 15 mcg Documented by: Budesonide (Budesonide 0.25 Mg/2 Ml Nebu) 0.5 mg IH Q12HRT [facility] Last Admin: 02/16/21 08:05 Dose: 0.5 mg Documented by: Cetirizine HCl (Cetirizine 10 Mg Tab) 10 mg PO QDAY [facility] Last Admin: 02/16/21 10:43 Dose: 10 mg Documented by: Enoxaparin Sodium (Enoxaparin 40 Mg/0.4 Ml Inj) 40 mg SUB-Q QDAY@2200 JOSE D; Protocol Last Admin: 02/15/21 21:41 Dose: 40 mg Documented by: Levofloxacin/Dextrose (Levaquin 750mg/150ml) 750 mg in 150 mls @ 100 mls/hr IV Q24H [facility]; Protocol Last Admin: 02/15/21 18:11 Dose: 100 mls/hr Documented by: Methylprednisolone Sodium Succinate (Methylprednisolone Sod Succinate 125 Mg/2 Ml Inj) 80 mg IV Q8HR [facility] Last Admin: 02/16/21 05:40 Dose: 80 mg Documented by: Montelukast Sodium (Montelukast 10 Mg Tab) 10 mg PO QPM [facility] Last Admin: 02/15/21 18:11 Dose: 10 mg Documented by: Physical Examination Vital signs: Vital Signs Pulse Resp BP Pulse Ox 116 H 17 155/79 100 02/15/21 07:39 02/15/21 07:39 02/15/21 07:39 02/15/21 07:39 Results - Laboratory Findings CBC and BMP: 02/15/21 09:54 02/15/21 09:54 ABG ABG pH 7.369 (7.320-7.450) 02/15/21 10:24 POC ABG pCO2 39.9 mmHg (32.0-48.0) 02/15/21 10:24 POC ABG pO2 121.0 mmHg (83-108) H 02/15/21 10:24 POC ABG HCO3 22.5 02/15/21 10:24 ABG O2 Saturation 98.7 (0-100) 02/15/21 10:24 PT/INR, D-dimer PT 12.7 Sec. (12.2-14.9) 02/15/21 09:54 INR 0.96 (0.87-1.13) 02/15/21 09:54 Abnormal lab findings: Abnormal Labs 02/15/21 02/15/21 02/15/21 09:54 09:54 09:54 WBC 13.5 H MCH 27 L POC ABG pO2 ABG Glucose Glucose 180 H Magnesium 2.60 H Arterial Blood Glucose 02/15/21 10:24 WBC MCH POC ABG pO2 121.0 H ABG Glucose 183 H Glucose Magnesium Arterial Blood Glucose 183 H Assessment and Plan 50 y/o female with asthma exacerbation 1. CHange to oral steroids starting tomorrow. Prednisone 60 daily and taper as follows: 60 daily for 4 days, 40 daily for 4 days, 20 daily for 4 days then 10 daily for 4 days then stop. 2. Resume home asthma regimen 3. Follow up with Bessie as in 10-14 days post discharge.
[2021-02-16] MEDS: MONTELUKAST 10 MG TAB PO SCH (18:05)
[2021-02-16] MEDS: ENOXAPARIN 40 MG/0.4 ML INJ SUB-Q SCH (21:27)
[2021-02-17] MEDS: IPRATROPIUM/ALBUTEROL SULFATE 3 ML AMPUL.NEB IH SCH ×5 (01:31→20:36)
[2021-02-17] MEDS: methylPREDNISolone Sod Succinate 125 MG/2 ML INJ IV SCH ×3 (05:13→21:11)
[2021-02-17] MEDS: BUDESONIDE 0.25 MG/2 ML NEBU IH SCH (07:25)
[2021-02-17] MEDS: ARFORMOTEROL 15 MCG/2 ML NEBU IH SCH ×2 (07:25→20:36)
[2021-02-17] MEDS: amLODIPine 5 MG TAB PO SCH (10:05)
[2021-02-17] MEDS: CETIRIZINE 10 MG TAB PO SCH (10:05)
--- NOTE | 2021-02-17 10:55 | Progress Note ---
Assessment and Plan Assessment and plan: --Acute hypoxic respiratory failure; Secondary to bronchial asthma exacerbation Requiring BiPAP, patient required BiPAP yesterday afternoon Symptoms significantly improved , on 2 L of oxygen today Titrate O2 sats to more than 90%, home oxygen evaluation at [place] --Acute exacerbation of bronchial asthma; Oxygen titrate O2 sats more than 90%, BiPAP as needed Tapering dose of IV steroids, nebulizers, inhalation steroids Pulmonary following --SIRS; Tachypnea, tachycardia, leukocytosis Continue current management, no organ failure --Acute bronchitis/pneumonitis Bronchodilators, IV antibiotics, follow cultures --Obesity;BMI 33.3, Patient need weight reduction when medically stable --Hypertension; moderate control Continue current antihypertensives and as needed medications --DVT prophylaxis; Lovenox subcu --We will closely monitor the patient and adjust management as needed We will closely monitor patient and adjust management as needed Plan of care reviewed with patient and her nurse Brief history; 50-year-old -[place] female patient well-known to our service, multiple admissions in the past With history of bronchial asthma, with intermittent episodes of acute exacerbation, never intubated in the past Was admitted through emergency room with worsening shortness of breath and worsening wheeze. Patient was found to be severely hypoxemic Upon arrival to the ER requiring continuous BiPAP for many hours. Patient has bronchial asthma exacerbation, being managed appropriately with nebulizers IV steroids inhalation steroids and supportive care, pulmonary consulted. 02/16/2021; patient feels slightly better since yesterday, respiratory therapist in front of me remove the BiPAP and checked room air O2 sat Continue nebulizers tapering dose of steroids inhalation steroids antibiotics, follow cultures, home oxygen evaluation discharge Pulmonary consulted, follow evaluation recommendations 02/17/2021; patient feels slightly better, still complains of some shortness of breath and wheezing, on tapering dose of steroids ,required BiPAP yesterday, titrated to 2 to 3 L of nasal cannula oxygen, will wean as tolerated, evaluate for home oxygen at [place] Possible discharge home tomorrow if stable History Interval history: I have seen and examined the patient at the bedside this morning Patient's chart and medications reviewed Patient feels better, still has some wheeze and shortness of breath Required BiPAP yesterday , today requiring only 2 L of nasal cannula oxygen Patient is alert and awake, mild distress Vital signs reviewed Hospitalist Physical - Constitutional Vitals: Temp Pulse Resp BP Pulse Ox 98.0 F 78 18 115/54 97 02/17/21 07:41 02/17/21 10:37 02/17/21 10:00 02/17/21 07:41 02/17/21 10:00 General appearance: Present: mild distress, well-nourished, obese - EENT Eyes: Present: PERRL, EOM intact - Neck Neck: Present: supple, normal ROM - Respiratory Respiratory effort: normal Respiratory: bilateral: diminished, wheezing, negative: rales, rhonchi - Cardiovascular Rhythm: regular Heart Sounds: Present: S1 & S2 - Extremities Extremities: no ischemia, No edema - Abdominal General gastrointestinal: soft, non-tender, non-distended, normal bowel sounds - Integumentary Integumentary: Present: clear, warm - Psychiatric Psychiatric: appropriate mood/affect, cooperative - Neurologic Neurologic: CNII-XII intact, moves all extremities Results - Labs CBC & Chem 7: 02/15/21 09:54 02/15/21 09:54 Labs: Laboratory Last Values WBC 13.5 K/mm3 (4.5-11.0) H 02/15/21 09:54 RBC 4.29 M/mm3 (3.65-5.03) 02/15/21 09:54 Hgb 11.8 gm/dl (10.1-14.3) 02/15/21 09:54 Hct 37.0 % (30.3-42.9) 02/15/21 09:54 MCV 86 fl (79-97) 02/15/21 09:54 MCH 27 pg (28-32) L 02/15/21 09:54 MCHC 32 % (30-34) 02/15/21 09:54 RDW 14.6 % (13.2-15.2) 02/15/21 09:54 Plt Count 269 K/mm3 (140-440) 02/15/21 09:54 PT 12.7 Sec. (12.2-14.9) 02/15/21 09:54 INR 0.96 (0.87-1.13) 02/15/21 09:54 ABG pH 7.369 (7.320-7.450) 02/15/21 10:24 POC ABG pCO2 39.9 mmHg (32.0-48.0) 02/15/21 10:24 POC ABG pO2 121.0 mmHg (83-108) H 02/15/21 10:24 POC ABG HCO3 22.5 02/15/21 10:24 ABG O2 Saturation 98.7 (0-100) 02/15/21 10:24 POC ABG Base Excess -2.6 02/15/21 10:24 ABG Hemoglobin 12.6 (12.0-17.5) 02/15/21 10:24 ABG Oxyhemoglobin 97.7 (94-98) 02/15/21 10:24 ABG Methemoglobin 0.1 (0.0-1.5) 02/15/21 10:24 ABG Sodium 136.9 mmol/L (136.0-145.0) 02/15/21 10:24 ABG Potassium 3.6 mmol/L (3.40-4.50) 02/15/21 10:24 ABG Chloride 104.0 mmol/L (98-107) 02/15/21 10:24 ABG Glucose 183 mg/dL (65-95) H 02/15/21 10:24 Carboxyhemoglobin 0.9 (0.5-1.5) 02/15/21 10:24 FiO2 % 30.0 02/15/21 10:24 Sodium 138 mmol/L (137-145) 02/15/21 09:54 Potassium 3.6 mmol/L (3.6-5.0) 02/15/21 09:54 Chloride 103.8 mmol/L (98-107) 02/15/21 09:54 Carbon Dioxide 23 mmol/L (22-30) 02/15/21 09:54 Anion Gap 15 mmol/L 02/15/21 09:54 BUN 14 mg/dL (7-17) 02/15/21 09:54 Creatinine 0.8 mg/dL (0.6-1.2) 02/15/21 09:54 Estimated GFR > 60 ml/min 02/15/21 09:54 BUN/Creatinine Ratio 18 % 02/15/21 09:54 Glucose 180 mg/dL (65-100) H 02/15/21 09:54 Calcium 8.5 mg/dL (8.4-10.2) 02/15/21 09:54 Magnesium 2.60 mg/dL (1.7-2.3) H 02/15/21 09:54 Total Creatine Kinase 102 units/L (30-135) 02/15/21 09:54 Arterial Blood Glucose 183 mg/dL (65-95) H 02/15/21 10:24 Arterial Blood Ionized Calcium 4.6 mg/dL (4.6-5.3) 02/15/21 10:24 Microbiology: Microbiology 02/15/21 16:03 Nares - Left MRSA Culture - Preliminary [place]/IV: Voiding Method Bedside Commode Active Medications - Current Medications Current Medications: Generic Name Dose Route Start Last Admin Trade Name Freq PRN Reason Stop Dose Admin Albuterol 2.5 mg 02/15/21 10:52 Albuterol 2.5 Mg/3 Ml Nebu IH Q4HRT PRN Shortness Of Breath Albuterol/Ipratropium 1 ampul 02/17/21 08:00 02/17/21 07:26 Ipratropium/Albuterol Sulfate 3 Ml Ampul.Neb IH 1 ampul Q6HRT JOSE D Administration Amlodipine Besylate 5 mg 02/16/21 10:00 02/17/21 10:05 Amlodipine 5 Mg Tab PO 5 mg QDAY JOSE D Administration Arformoterol Tartrate 15 mcg 02/15/21 20:00 02/17/21 07:25 Arformoterol 15 Mcg/2 Ml Nebu IH 15 mcg Q12HRT JOSE D Administration Budesonide 0.5 mg 02/15/21 20:00 02/17/21 07:25 Budesonide 0.25 Mg/2 Ml Nebu IH 0.5 mg Q12HRT JOSE D Administration Cetirizine HCl 10 mg 02/16/21 10:00 02/17/21 10:05 Cetirizine 10 Mg Tab PO 10 mg QDAY JOSE D Administration Enoxaparin Sodium 40 mg 02/15/21 22:00 02/16/21 21:27 Enoxaparin 40 Mg/0.4 Ml Inj SUB-Q 40 mg QDAY@2200 JOSE D Administration Protocol Levofloxacin 750 mg 02/17/21 11:00 Levofloxacin 750 Mg Tab PO 02/19/21 10:01 Q24HR JOSE D Protocol Methylprednisolone Sodium Succinate 80 mg 02/15/21 14:00 02/17/21 05:13 Methylprednisolone Sod Succinate 125 Mg/2 Ml Inj IV 80 mg Q8HR JOSE D Administration Montelukast Sodium 10 mg 02/15/21 18:00 02/16/21 18:05 Montelukast 10 Mg Tab PO 10 mg QPM JOSE D Administration
[2021-02-17] MEDS: levoFLOXacin 750 MG TAB PO SCH (11:46)
--- NOTE | 2021-02-17 12:54 | Progress Note ---
Assessment and Plan 50 y/o female with asthma exacerbation 02/17/21: Same recs as yesterday. Per patient going home tomorrow. No objection to discharge. 1. CHange to oral steroids starting tomorrow. Prednisone 60 daily and taper as follows: 60 daily for 4 days, 40 daily for 4 days, 20 daily for 4 days then 10 daily for 4 days then stop. 2. Resume home asthma regimen 3. Follow up with Bessie as in 10-14 days post discharge. Subjective Date of service: 02/17/21 Interval history: No acute events. Pulm status continues to improve. Objective Vital Signs - 12hr 02/17/21 02/17/21 02/17/21 01:32 04:39 07:26 Temperature 97.8 F Pulse Rate 82 Pulse Rate [ 82 88 Anterior Bilateral Throughout] Pulse Rate [ 78 Anterior Bilateral] Respiratory 20 Rate Respiratory 18 20 Rate [Anterior Bilateral Throughout] Respiratory 18 Rate [Anterior Bilateral] Blood Pressure 112/55 O2 Sat by Pulse 98 100 Oximetry 02/17/21 02/17/21 02/17/21 07:41 10:00 10:37 Temperature 98.0 F Pulse Rate 83 78 Pulse Rate [ Anterior Bilateral Throughout] Pulse Rate [ Anterior Bilateral] Respiratory 20 18 Rate Respiratory Rate [Anterior Bilateral Throughout] Respiratory Rate [Anterior Bilateral] Blood Pressure 115/54 O2 Sat by Pulse 96 97 Oximetry 02/17/21 11:11 Temperature 98.0 F Pulse Rate 92 H Pulse Rate [ Anterior Bilateral Throughout] Pulse Rate [ Anterior Bilateral] Respiratory Rate Respiratory Rate [Anterior Bilateral Throughout] Respiratory Rate [Anterior Bilateral] Blood Pressure 107/68 O2 Sat by Pulse 99 Oximetry CBC and BMP: 02/15/21 09:54 02/15/21 09:54 ABG, PT/INR, D-dimer: ABG ABG pH 7.369 (7.320-7.450) 02/15/21 10:24 POC ABG pCO2 39.9 mmHg (32.0-48.0) 02/15/21 10:24 POC ABG pO2 121.0 mmHg (83-108) H 02/15/21 10:24 POC ABG HCO3 22.5 02/15/21 10:24 ABG O2 Saturation 98.7 (0-100) 02/15/21 10:24 PT/INR, D-dimer PT 12.7 Sec. (12.2-14.9) 02/15/21 09:54 INR 0.96 (0.87-1.13) 02/15/21 09:54 Abnormal lab findings: Abnormal Labs 02/15/21 02/15/21 02/15/21 09:54 09:54 09:54 WBC 13.5 H MCH 27 L POC ABG pO2 ABG Glucose Glucose 180 H Magnesium 2.60 H Arterial Blood Glucose 02/15/21 10:24 WBC MCH POC ABG pO2 121.0 H ABG Glucose 183 H Glucose Magnesium Arterial Blood Glucose 183 H
[2021-02-17] MEDS: MONTELUKAST 10 MG TAB PO SCH (17:25)
[2021-02-17] MEDS: BUDESONIDE 0.5 MG/2 ML NEBU IH SCH (20:36)
[2021-02-17] MEDS: ENOXAPARIN 40 MG/0.4 ML INJ SUB-Q SCH (21:12)
[2021-02-18] MEDS: IPRATROPIUM/ALBUTEROL SULFATE 3 ML AMPUL.NEB IH SCH ×2 (02:41→08:03)
[2021-02-18] MEDS: methylPREDNISolone Sod Succinate 125 MG/2 ML INJ IV SCH ×2 (05:13→13:35)
[2021-02-18] MEDS: BUDESONIDE 0.5 MG/2 ML NEBU IH SCH (08:02)
[2021-02-18] MEDS: ARFORMOTEROL 15 MCG/2 ML NEBU IH SCH (08:02)
--- NOTE | 2021-02-18 08:08 | Discharge Summary ---
Providers - Providers Date of Admission: 02/15/21 13:10 Date of discharge: 02/18/21 Attending physician: CORINE RAO 02/16/21 11:39 Consult to Physician [CONS] Routine Comment: Consulting Provider: TERRY AMBRIZ Physician Instructions: Reason For Exam: Acute hypoxic respiratory failure/on BiPAP Hospitalization Reason for admission: Acute hypoxic respiratory failure/acute exacerbation of bronchial asthma Condition: Stable Pertinent studies: Chest x-ray; no acute abnormality noted Hospital course: 50-year-old -Swiss female patient well-known to our service, multiple admissions in the past With history of bronchial asthma, with intermittent episodes of acute exacerbation, never intubated in the past Was admitted through emergency room with worsening shortness of breath and worsening wheeze. Patient was found to be severely hypoxemic Upon arrival to the ER requiring continuous BiPAP for many hours. Patient has bronchial asthma exacerbation, being managed appropriately with nebulizers IV steroids inhalation steroids and supportive care, pulmonary evaluated the patient, patient's medications optimized Patient symptoms slowly but gradually improved. Patient received tapering dose of steroids. At the time of discharge patient was evaluated for need for home oxygen, however patient's resting room air and ambulatory room air O2 sats are more than 95%, no indication for home oxygen Today patient is comfortable no new complaints vital signs stable physical examination prior to discharge did not show new changes Cleared by consultants for discharge and follow-up per schedule Stable at discharge Discharge diagnosis: --Acute hypoxic respiratory failure; Secondary to bronchial asthma exacerbation Requiring BiPAP, patient required BiPAP yesterday afternoon Symptoms significantly improved , on 2 L of oxygen today Titrate O2 sats to more than 90%, home oxygen evaluation at [facility] --Acute exacerbation of bronchial asthma; Oxygen titrate O2 sats more than 90%, BiPAP as needed Tapering dose of IV steroids, nebulizers, inhalation steroids Pulmonary following --SIRS; Tachypnea, tachycardia, leukocytosis Continue current management, no organ failure --Acute bronchitis/pneumonitis Bronchodilators, IV antibiotics, follow cultures --Obesity;BMI 33.3, Patient need weight reduction when medically stable --Hypertension; moderate control Continue current antihypertensives and as needed medications --DVT prophylaxis; Lovenox subcu Cleared by consultants Stable at discharge No indication for home oxygen Did not meet the criteria Disposition: DC- TO HOME OR SELFCARE Final Discharge Diagnosis (Prints w/discharge instructions): Acute hypoxic respiratory failure. Acute exacerbation of bronchial asthma. SIRS. Acute bronchitis and pneumonitis. Obesity BMI 33.3. Hypertension Time spent for discharge: 35 min Core Measure Documentation - Palliative Care Palliative Care/ Comfort Measures: Not Applicable - Core Measures Any of the following diagnoses?: none Exam - Constitutional Vitals: Temp Pulse Resp BP Pulse Ox 98.0 F 86 17 109/61 99 02/18/21 04:13 02/18/21 08:00 02/18/21 08:00 02/18/21 04:13 02/18/21 08:04 General appearance: Present: no acute distress, well-nourished - EENT Eyes: Present: PERRL, EOM intact - Neck Neck: Present: supple, normal ROM - Respiratory Respiratory effort: normal Respiratory: bilateral: diminished, negative: rales, rhonchi, wheezing - Cardiovascular Rhythm: regular Heart Sounds: Present: S1 & S2 - Extremities Extremities: no ischemia, No edema - Abdominal General gastrointestinal: Present: soft, non-tender, non-distended, normal bowel sounds - Integumentary Integumentary: Present: clear, warm - Musculoskeletal Musculoskeletal: strength equal bilaterally, generalized weakness - Psychiatric Psychiatric: appropriate mood/affect, cooperative - Neurologic Neurologic: CNII-XII intact, moves all extremities Plan Activity: advance as tolerated Diet: other (Cardiac diet) Additional Instructions: You do not need home oxygen, oxygen saturations resting and ambulatory more than 95%. Advised exercise as tolerated and weight reduction. If you have worsening symptoms contact MD or go to emergency room. Advised to follow with your private facility maintenance helper within 1 week Follow up with: DINORAH AKINS [Other] - 3-5 Days YULISSA DENG MD [Staff Physician] - 14 Days Prescriptions: levoFLOXacin [Levaquin TAB] 750 mg PO Q24HR #3 tablet predniSONE 6 tab PO QDAY #52 tab
[2021-02-18] MEDS: levoFLOXacin 750 MG TAB PO SCH (09:14)
[2021-02-18] MEDS: amLODIPine 5 MG TAB PO SCH (09:15)
[2021-02-18] MEDS: CETIRIZINE 10 MG TAB PO SCH (09:15)
--- NOTE | 2021-02-18 11:06 | Electrocardiograph Report ---
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
--- NOTE | 2021-02-18 13:31 | Progress Note ---
Assessment and Plan 50 y/o female with asthma exacerbation 02/18/21: Agree with discharge today. Follow up with Bessie in 7-10 days. 02/17/21: Same recs as yesterday. Per patient going home tomorrow. No objection to discharge. 1. CHange to oral steroids starting tomorrow. Prednisone 60 daily and taper as follows: 60 daily for 4 days, 40 daily for 4 days, 20 daily for 4 days then 10 daily for 4 days then stop. 2. Resume home asthma regimen 3. Follow up with Bessie as in 10-14 days post discharge. Subjective Date of service: 02/18/21 Interval history: No acute events. Discharge order in place. Objective Vital Signs - 12hr 02/18/21 02/18/21 02/18/21 02:35 04:13 07:45 Temperature 98.0 F 98.6 F Pulse Rate 89 95 H Pulse Rate [ 88 Anterior Bilateral] Pulse Rate [ Apical] Pulse Rate [ Left Radial] Pulse Rate [ Right Radial] Respiratory 20 20 Rate Respiratory 20 Rate [Anterior Bilateral] Blood Pressure 109/61 149/81 O2 Sat by Pulse 97 98 Oximetry 02/18/21 02/18/21 02/18/21 08:00 08:04 09:14 Temperature Pulse Rate 91 H Pulse Rate [ 86 Anterior Bilateral] Pulse Rate [ Apical] Pulse Rate [ Left Radial] Pulse Rate [ Right Radial] Respiratory Rate Respiratory 17 Rate [Anterior Bilateral] Blood Pressure 114/60 O2 Sat by Pulse 99 98 Oximetry 02/18/21 02/18/21 02/18/21 09:15 10:00 11:38 Temperature 98.1 F Pulse Rate 95 H 93 H 91 H Pulse Rate [ Anterior Bilateral] Pulse Rate [ 79 Apical] Pulse Rate [ 79 Left Radial] Pulse Rate [ 79 Right Radial] Respiratory 19 18 Rate Respiratory Rate [Anterior Bilateral] Blood Pressure 114/60 128/71 O2 Sat by Pulse 99 97 Oximetry CBC and BMP: 02/15/21 09:54 02/15/21 09:54 ABG, PT/INR, D-dimer: ABG ABG pH 7.369 (7.320-7.450) 02/15/21 10:24 POC ABG pCO2 39.9 mmHg (32.0-48.0) 02/15/21 10:24 POC ABG pO2 121.0 mmHg (83-108) H 02/15/21 10:24 POC ABG HCO3 22.5 02/15/21 10:24 ABG O2 Saturation 98.7 (0-100) 02/15/21 10:24 PT/INR, D-dimer PT 12.7 Sec. (12.2-14.9) 02/15/21 09:54 INR 0.96 (0.87-1.13) 02/15/21 09:54 Abnormal lab findings: Abnormal Labs 02/15/21 02/15/21 02/15/21 09:54 09:54 09:54 WBC 13.5 H MCH 27 L POC ABG pO2 ABG Glucose Glucose 180 H Magnesium 2.60 H Arterial Blood Glucose 02/15/21 10:24 WBC MCH POC ABG pO2 121.0 H ABG Glucose 183 H Glucose Magnesium Arterial Blood Glucose 183 H
[2021-02-18 17:18] VITALS: BP 139/79
== END 2021-02-18 18:05 | disposition home or self-care (01) | DRG 193 ==
LOC: ED 07:32 → 3A 10:21 → 4A 12:56 → OBSVTOIN 13:10 → 4A 13:24
PROVIDERS: ADMIT Internal Medicine; ATTEND Internal Medicine
PROC: 4A033R1 Measurement of Arterial Saturation, Peripheral, Percutaneous Approach (ICD-10-PCS; principal; 2021-02-15)
PROC: 5A09457 Assistance with Respiratory Ventilation, 24-96 Consecutive Hours, Continuous Positive Airway Pressure (ICD-10-PCS; 2021-02-15)
DX: J18.9 Pneumonia, unspecified organism (principal); J96.01 Acute respiratory failure with hypoxia; J45.901 Unspecified asthma with (acute) exacerbation; R65.10 Systemic inflammatory response syndrome (SIRS) of non-infectious origin without acute organ dysfunction; G47.33 Obstructive sleep apnea (adult) (pediatric); E66.9 Obesity, unspecified; Z91.018 Allergy to other foods; I10 Essential (primary) hypertension; Z98.51 Tubal ligation status; Z68.33 Body mass index [BMI] 33.0-33.9, adult; J20.9 Acute bronchitis, unspecified
CPT/HCPCS: 36415; 71045; 80048; 82550; 82805; 83735; 85027; 85610; 87116; 93005; 94640; 94644; 94660; 96365; 96372; G0378; J0171; J1650; J1956; J2930; J3475; J7120

== ENCOUNTER 2021-03-09 20:02 | Emergency (ER) | payer MEDICARE ==
[2021-03-09] MEDS ORDERED: ALBUTEROL 2.5 MG/3 ML NEBU IH ONE (20:34)
[2021-03-09] MEDS ORDERED: IPRATROPIUM/ALBUTEROL SULFATE 3 ML AMPUL.NEB IH ONE (20:34)
[2021-03-09] MEDS ORDERED: methylPREDNISolone Sod Succinate 125 MG/2 ML INJ IM ONE (20:34)
--- NOTE | 2021-03-09 20:41 | Emergency Department Report ---
ED Shortness of Breath HPI - General Chief Complaint: Dyspnea/Respdistress Stated Complaint: ASTHMA ATTACK/SOB Source: patient Mode of arrival: Wheelchair Limitations: No Limitations - History of Present Illness Initial Comments: Patient is a 50-year-old -Vincentian female with a history of asthma who presents to the ED with complaint of acute onset persistent shortness of breath, persistent dry cough and wheezing for the last 1 hour after being exposed to pollen. Patient states that she left the house to go to [place] for her son when she started having symptoms of shortness of breath, wheezing and chest tightness. Patient states that she used her albuterol nebulizers at home as well as the inhaler with no relief. Patient states that the shortness of breath and wheezing got worse and she decided come to the ED for evaluation. Patient states that the symptoms are typical of her chronic asthma attack with exacerbations. Patient denies chest pain, fever, chills, nausea, vomiting, headache, syncope, sore throat, nasal and sinus congestion, abdominal pain, neck pain, change in vision, dizziness or syncope. MD Complaint: shortness of breath, cough, "asthma attack" -: Sudden, hour(s) (3) Radiation: other (chest pain) Severity: moderate Pain Scale: 0 Quality: dull Consistency: intermittent Improves With: nothing Worsens With: nothing Known History Of: asthma Context: allergen exposure Associated Symptoms: denies other symptoms Treatments Prior to Arrival: none - Related Data Home Oxygen Therapy: No Home Medications Medication Instructions Recorded Confirmed Last Taken Mepolizumab [Nucala] 1 syr IJ QMONTH 05/09/20 02/17/21 1 Month Ago ~04/08/20 Previous Rx's Medication Instructions Recorded Last Taken Type Albuterol Mdi (or & Nicu Only) 2 puff IH Q4H PRN 30 Days 07/09/20 Unknown Rx [ProAir HFA Inhaler] Amlodipine Besylate [Norvasc] 5 mg PO QDAY #30 tablet 10/25/20 Unknown Rx Budesonide/Formoterol Fumarate 10.2 gm IH BID #1 hfa.aer.ad 10/25/20 Unknown Rx [Symbicort 160-4.5 Mcg Inhaler] Fluticasone [Flonase] 2 puff PO DAILY 30 Days #1 bottle 10/25/20 Unknown Rx Fluticasone/Vilanterol [Breo 25 mcg IH DAILY #1 10/25/20 Unknown Rx Ellipta 200-25 Mcg INH] Montelukast [Singulair] 10 mg PO QPM #30 tablet 10/25/20 Unknown Rx levoFLOXacin [Levaquin TAB] 750 mg PO Q24HR #3 tablet 02/18/21 Unknown Rx predniSONE 6 tab PO QDAY #52 tab 02/18/21 Unknown Rx Montelukast [Singulair] 1 mg PO QPM #30 03/09/21 Unknown Rx methylPREDNISolone [Medrol 4MG 4 mg PO DAILY #21 tab.ds.pk 03/09/21 Unknown Rx DOSEPAK (21 tabs)] Allergies Allergy/AdvReac Type Severity Reaction Status Date / Time wheat Allergy Unknown Verified 11/11/19 13:04 ED Review of Systems ROS: Stated complaint: ASTHMA ATTACK/SOB Other details as noted in HPI Constitutional: denies: chills, fever Eyes: denies: eye pain, eye discharge, vision change ENT: denies: ear pain, throat pain Respiratory: cough, shortness of breath, wheezing Cardiovascular: denies: chest pain, palpitations Endocrine: no symptoms reported Gastrointestinal: denies: abdominal pain, nausea, vomiting, diarrhea, hematemesis Genitourinary: denies: urgency, dysuria, discharge Musculoskeletal: denies: back pain, joint swelling, arthralgia Skin: denies: rash, lesions Neurological: denies: headache, weakness, paresthesias Psychiatric: denies: anxiety, depression Hematological/Lymphatic: denies: easy bleeding, easy bruising ED Past Medical Hx - Past Medical History Hx Hypertension: Yes Hx Heart Attack/AMI: No Hx Congestive Heart Failure: No Hx Diabetes: No Hx Deep Vein Thrombosis: No Hx Pulmonary Embolism: No Hx Asthma: Yes Hx COPD: No Hx Tuberculosis: No Hx HIV: No Additional medical history: (5) previous intubations due to asthma complications - Surgical History Hx Coronary Stent: No Hx Open Heart Surgery: No Hx Pacemaker: No Hx Internal Defibrillator: No Hx Cholecystectomy: No Hx Appendectomy: No Hx Breast Surgery: No Additional Surgical History: tubal ligation - Social History Smoking Status: Never Smoker Substance Use Type: None - Medications Home Medications: Home Medications Medication Instructions Recorded Confirmed Last Taken Type Mepolizumab [Nucala] 1 syr IJ QMONTH 05/09/20 02/17/21 1 Month Ago History ~05/17/20 Albuterol Mdi (or & Nicu Only) 2 puff IH Q4H PRN 30 Days 07/09/20 02/17/21 Unknown Rx [ProAir HFA Inhaler] Amlodipine Besylate [Norvasc] 5 mg PO QDAY #30 tablet 10/25/20 02/17/21 Unknown Rx Budesonide/Formoterol Fumarate 10.2 gm IH BID #1 hfa.aer.ad 10/25/20 02/17/21 Unknown Rx [Symbicort 160-4.5 Mcg Inhaler] Fluticasone [Flonase] 2 puff PO DAILY 30 Days #1 bottle 10/25/20 02/17/21 Unknown Rx Fluticasone/Vilanterol [Breo 25 mcg IH DAILY #1 10/25/20 02/17/21 Unknown Rx Ellipta 200-25 Mcg INH] Montelukast [Singulair] 10 mg PO QPM #30 tablet 10/25/20 02/17/21 Unknown Rx levoFLOXacin [Levaquin TAB] 750 mg PO Q24HR #3 tablet 02/18/21 Unknown Rx predniSONE 6 tab PO QDAY #52 tab 02/18/21 Unknown Rx Montelukast [Singulair] 1 mg PO QPM #30 03/09/21 Unknown Rx methylPREDNISolone [Medrol 4MG 4 mg PO DAILY #21 tab.ds.pk 03/09/21 Unknown Rx DOSEPAK (21 tabs)] ED Physical Exam - General Limitations: No Limitations General appearance: alert, in no apparent distress - Head Head exam: Present: atraumatic, normocephalic, normal inspection - Eye Eye exam: Present: normal appearance, PERRL, EOMI Pupils: Present: normal accommodation - ENT ENT exam: Present: normal exam, normal orophraynx, mucous membranes moist, TM's normal bilaterally, normal external ear exam - Neck Neck exam: Present: normal inspection, full ROM - Respiratory Respiratory exam: Present: wheezes (diffuse coarse wheezes throughout). Absent: respiratory distress, chest wall tenderness, accessory muscle use, decreased breath sounds, prolonged expiratory - Cardiovascular Cardiovascular Exam: Present: regular rate, normal rhythm, normal heart sounds. Absent: systolic murmur, diastolic murmur, rubs, gallop - GI/Abdominal GI/Abdominal exam: Present: soft, normal bowel sounds. Absent: tenderness, guarding, rebound, hyperactive bowel sounds, hypoactive bowel sounds, organomegaly - Extremities Exam Extremities exam: Present: normal inspection, full ROM, normal capillary refill - Back Exam Back exam: Present: normal inspection, full ROM. Absent: tenderness, CVA tenderness (R), CVA tenderness (L), muscle spasm, paraspinal tenderness, vertebral tenderness - Neurological Exam Neurological exam: Present: alert, oriented X3, CN II-XII intact, normal gait, reflexes normal - Psychiatric Psychiatric exam: Present: normal affect, normal mood - Skin Skin exam: Present: warm, dry, intact, normal color. Absent: rash ED Course Vital Signs 03/09/21 03/09/21 03/09/21 20:30 20:45 21:03 Temperature 98.6 F Pulse Rate 120 H Pulse Rate [ Posterior Bilateral Throughout] Respiratory 20 Rate Respiratory Rate [Posterior Bilateral Throughout] Blood Pressure 149/83 Blood Pressure [Left] O2 Sat by Pulse 99 100 100 Oximetry 03/09/21 03/09/21 03/09/21 21:10 21:16 21:30 Temperature Pulse Rate Pulse Rate [ 118 H Posterior Bilateral Throughout] Respiratory Rate Respiratory 16 Rate [Posterior Bilateral Throughout] Blood Pressure 142/76 146/78 Blood Pressure [Left] O2 Sat by Pulse 96 98 Oximetry 03/09/21 03/09/21 03/09/21 21:46 22:00 22:16 Temperature Pulse Rate Pulse Rate [ Posterior Bilateral Throughout] Respiratory Rate Respiratory Rate [Posterior Bilateral Throughout] Blood Pressure 169/83 174/88 174/82 Blood Pressure [Left] O2 Sat by Pulse 97 98 98 Oximetry 03/09/21 03/09/21 03/09/21 22:22 22:30 22:45 Temperature Pulse Rate 104 H Pulse Rate [ Posterior Bilateral Throughout] Respiratory 18 Rate Respiratory Rate [Posterior Bilateral Throughout] Blood Pressure 161/81 178/94 Blood Pressure 151/81 [Left] O2 Sat by Pulse 100 98 98 Oximetry ED Medical Decision Making - Radiology Data Radiology results: report reviewed, image reviewed [facility] [address] [place] [address] XRay Report Signed Patient: RONY SHARPE MR#: [id number] : 1970 Acct:[id number] Age/Sex: 50 / F ADM Date: 03/09/21 Loc: ED Attending Dr: Ordering Physician: CAITLIN LEAVITT Date of Service: 03/09/21 Procedure(s): XR chest routine 2V Accession Number(s): [id number] cc: CAITLIN LEAVITT Fluoro Time In Minutes: CHEST 2 VIEWS INDICATION / CLINICAL INFORMATION: dyspnea, asthma attack. COMPARISON: 02/15/2021 FINDINGS: SUPPORT DEVICES: None. HEART / MEDIASTINUM: No significant abnormality. LUNGS / PLEURA: No significant pulmonary or pleural abnormality. No pneumothorax. ADDITIONAL FINDINGS: No significant additional findings. IMPRESSION: No significant abnormality or interval change from 02/15/2021 Signer Name: Reji Thibodeaux MD FACR Signed: 03/09/2021 9:17 PM Workstation Name: [id number] Transcribed By: MS Dictated By: Reji Thibodeaux MD Electronically Authenticated By: Reji Thibodeaux MD Signed Date/Time: 03/09/212116 DD/ 15 TD/TT: - Medical Decision Making This is a 50-year-old -Vincentian female with a history of asthma who presents to the ED with complaint of acute onset persistent shortness of breath, persistent dry cough and wheezing for the last 1 hour after being exposed to pollen. Patient states that she left the house to go to [place] for her son when she started having symptoms of shortness of breath, wheezing and chest tightness. Patient states that she used her albuterol nebulizers at home as well as the inhaler with no relief. Patient states that the shortness of breath and wheezing got worse and she decided come to the ED for evaluation. Patient states that the symptoms are typical of her chronic asthma attack with exacerbations. In the ED, patient is alert and oriented x3 and is not in any distress but tachycardic and afebrile in triage. Patient was treated in the ED with Solu-Medrol 125 mg intramuscular injection, also given DuoNeb as well as albuterol nebulizer in the ED. Chest x-ray shows no acute cardiopulmonary abnormalities or pneumonitis. On reevaluation, patient's wheezing resolved with medications, the tachycardia also improved significantly. Patient symptoms are likely due to a acute asthma exacerbation following exposure to pollen. Patient was therefore discharged home on a prescription of Medrol Dosepak and advised to follow-up with her primary care physician in 2 to 3 days for reevaluation or return to the ED immediately if symptoms get worse. - Differential Diagnosis asthma; bronchitis; URI; Allergic rhinnitis Critical care attestation.: If time is entered above; I have spent that time in minutes in the direct care of this critically ill patient, excluding procedure time. ED Disposition Clinical Impression: Shortness of breath Asthmatic bronchitis with exacerbation Qualifiers: Asthma severity: unspecified severity Asthma persistence: unspecified Qualified Code(s): J45.901 - Unspecified asthma with (acute) exacerbation Asthma exacerbation Qualifiers: Asthma severity: unspecified severity Asthma persistence: unspecified Qualified Code(s): J45.901 - Unspecified asthma with (acute) exacerbation Disposition: TO HOME OR SELFCARE Is pt being admited?: No Does the pt Need Aspirin: No Condition: Stable Instructions: Shortness of Breath, Adult, Lher-in-Ewpo, Cough, Adult, [id number], Asthma, Adult, [id number] Additional Instructions: Chest x-ray shows no acute cardiopulmonary abnormalities or pneumonitis. Therefore take medications as needed for shortness of breath and asthma, follow- up with your primary care physician in 3 to 5 days for reevaluation. Return to the ED immediately if symptoms get worse. Prescriptions: methylPREDNISolone [Medrol 4MG DOSEPAK (21 tabs)] 4 mg PO DAILY #21 tab.ds.pk Montelukast [Singulair] 1 mg PO QPM #30 Referrals: [facility] [Provider Group] - 3-5 Days Time of Disposition: 22:19 Print Language: URUGUAYAN
--- NOTE | 2021-03-09 21:21 | XRay Report ---
CHEST 2 VIEWS INDICATION / CLINICAL INFORMATION: dyspnea, asthma attack. COMPARISON: 02/15/2021 FINDINGS: SUPPORT DEVICES: None. HEART / MEDIASTINUM: No significant abnormality. LUNGS / PLEURA: No significant pulmonary or pleural abnormality. No pneumothorax. ADDITIONAL FINDINGS: No significant additional findings. IMPRESSION: No significant abnormality or interval change from 02/15/2021 Signer Name: Reji Thibodeaux MD FACCal Signed: 03/09/2021 9:17 PM Workstation Name: [id number]
[2021-03-09 22:49] VITALS: BP 178/94
== END 2021-03-09 23:25 | disposition home or self-care (01) ==
LOC: ED 20:02
DX: J45.901 Unspecified asthma with (acute) exacerbation (principal); R06.02 Shortness of breath; I10 Essential (primary) hypertension; J45.909 Unspecified asthma, uncomplicated; Z79.899 Other long term (current) drug therapy; Z91.018 Allergy to other foods
CPT/HCPCS: 71046; 94640; 96372; 99283; J2930; 94644

== ENCOUNTER 2021-03-26 10:03 | Observation (INO) | payer MEDICARE ==
[2021-03-26] MEDS ORDERED: ALBUTEROL 2.5 MG/3 ML NEBU IH ONE (10:08)
[2021-03-26] MEDS ORDERED: methylPREDNISolone Sod Succinate 125 MG/2 ML INJ IV ONE (10:08)
[2021-03-26] MEDS ORDERED: IPRATROPIUM 0.02% NEBU 2.5 ML IH ONE (10:08)
--- NOTE | 2021-03-26 10:46 | Emergency Department Report ---
ED General Adult HPI - General Chief complaint: Adult Asthma Stated complaint: ASTHMA ATTACK Time Seen by Provider: 03/26/21 10:07 Source: patient Mode of arrival: Ambulatory Limitations: No Limitations - History of Present Illness Initial comments: The patient presents to the emergency department with a chief complaint of an asthma attack. Patient states this morning she woke up with difficulty breathing consistent with her asthma. Patient states she used her nebulizer machine at home x2 prior to arrival to no avail. Patient denies any chest pain or abdominal pain. The patient is not able to speak in complete sentences due to shortness of breath. Patient states she has a history of 5 intubations secondary to asthma. -: Sudden Severity scale (0 -10): 0 Consistency: constant Improves with: none Worsens with: none Associated Symptoms: denies other symptoms Treatments Prior to Arrival: none - Related Data Home Medications Medication Instructions Recorded Confirmed Last Taken Mepolizumab [Nucala] 1 syr IJ QMONTH 05/09/20 02/17/21 1 Month Ago ~04/08/20 Previous Rx's Medication Instructions Recorded Last Taken Type Albuterol Mdi (or & Nicu Only) 2 puff IH Q4H PRN 30 Days 07/09/20 Unknown Rx [ProAir HFA Inhaler] Amlodipine Besylate [Norvasc] 5 mg PO QDAY #30 tablet 10/25/20 Unknown Rx Budesonide/Formoterol Fumarate 10.2 gm IH BID #1 hfa.aer.ad 10/25/20 Unknown Rx [Symbicort 160-4.5 Mcg Inhaler] Fluticasone [Flonase] 2 puff PO DAILY 30 Days #1 bottle 10/25/20 Unknown Rx Fluticasone/Vilanterol [Breo 25 mcg IH DAILY #1 10/25/20 Unknown Rx Ellipta 200-25 Mcg INH] Montelukast [Singulair] 10 mg PO QPM #30 tablet 10/25/20 Unknown Rx levoFLOXacin [Levaquin TAB] 750 mg PO Q24HR #3 tablet 02/18/21 Unknown Rx predniSONE 6 tab PO QDAY #52 tab 02/18/21 Unknown Rx Montelukast [Singulair] 1 mg PO QPM #30 03/09/21 Unknown Rx methylPREDNISolone [Medrol 4MG 4 mg PO DAILY #21 tab.ds.pk 03/09/21 Unknown Rx DOSEPAK (21 tabs)] Allergies Allergy/AdvReac Type Severity Reaction Status Date / Time wheat Allergy Unknown Verified 03/26/21 10:05 ED Review of Systems ROS: Stated complaint: ASTHMA ATTACK Other details as noted in HPI Comment: All other systems reviewed and negative Constitutional: denies: chills, fever Eyes: denies: eye pain, eye discharge, vision change ENT: denies: ear pain, throat pain Respiratory: shortness of breath, wheezing. denies: cough Cardiovascular: denies: chest pain, palpitations Endocrine: no symptoms reported Gastrointestinal: denies: abdominal pain, nausea, diarrhea Genitourinary: denies: urgency, dysuria, discharge Musculoskeletal: denies: back pain, joint swelling, arthralgia Skin: denies: rash, lesions Neurological: denies: headache, weakness, paresthesias Psychiatric: denies: anxiety, depression Hematological/Lymphatic: denies: easy bleeding, easy bruising ED Past Medical Hx - Past Medical History Hx Hypertension: Yes Hx Heart Attack/AMI: No Hx Congestive Heart Failure: No Hx Diabetes: No Hx Deep Vein Thrombosis: No Hx Pulmonary Embolism: No Hx Asthma: Yes Hx COPD: No Hx Tuberculosis: No Hx HIV: No Additional medical history: (5) previous intubations due to asthma complications - Surgical History Hx Coronary Stent: No Hx Open Heart Surgery: No Hx Pacemaker: No Hx Internal Defibrillator: No Hx Cholecystectomy: No Hx Appendectomy: No Hx Breast Surgery: No Additional Surgical History: tubal ligation - Social History Smoking Status: Never Smoker Substance Use Type: None - Medications Home Medications: Home Medications Medication Instructions Recorded Confirmed Last Taken Type Mepolizumab [Nucala] 1 syr IJ QMONTH 05/09/20 02/17/21 1 Month Ago History ~04/08/20 Albuterol Mdi (or & Nicu Only) 2 puff IH Q4H PRN 30 Days 07/09/20 02/17/21 Unknown Rx [ProAir HFA Inhaler] Amlodipine Besylate [Norvasc] 5 mg PO QDAY #30 tablet 10/25/20 02/17/21 Unknown Rx Budesonide/Formoterol Fumarate 10.2 gm IH BID #1 hfa.aer.ad 10/25/20 02/17/21 Unknown Rx [Symbicort 160-4.5 Mcg Inhaler] Fluticasone [Flonase] 2 puff PO DAILY 30 Days #1 bottle 10/25/20 02/17/21 Unknown Rx Fluticasone/Vilanterol [Breo 25 mcg IH DAILY #1 10/25/20 02/17/21 Unknown Rx Ellipta 200-25 Mcg INH] Montelukast [Singulair] 10 mg PO QPM #30 tablet 10/25/20 02/17/21 Unknown Rx levoFLOXacin [Levaquin TAB] 750 mg PO Q24HR #3 tablet 02/18/21 Unknown Rx predniSONE 6 tab PO QDAY #52 tab 02/18/21 Unknown Rx Montelukast [Singulair] 1 mg PO QPM #30 03/09/21 Unknown Rx methylPREDNISolone [Medrol 4MG 4 mg PO DAILY #21 tab.ds.pk 03/09/21 Unknown Rx DOSEPAK (21 tabs)] ED Physical Exam - General Limitations: No Limitations General appearance: alert, in no apparent distress - Head Head exam: Present: atraumatic, normocephalic - Eye Eye exam: Present: normal appearance, PERRL, EOMI - ENT ENT exam: Present: mucous membranes moist - Neck Neck exam: Present: normal inspection - Respiratory Respiratory exam: Present: respiratory distress, wheezes, accessory muscle use - Cardiovascular Cardiovascular Exam: Present: normal rhythm, tachycardia. Absent: systolic murmur, diastolic murmur, rubs, gallop - GI/Abdominal GI/Abdominal exam: Present: soft, normal bowel sounds. Absent: distended, tenderness - Extremities Exam Extremities exam: Present: normal inspection - Back Exam Back exam: Present: normal inspection - Neurological Exam Neurological exam: Present: alert, oriented X3, CN II-XII intact. Absent: motor sensory deficit - Psychiatric Psychiatric exam: Present: normal affect, normal mood - Skin Skin exam: Present: warm, dry, intact, normal color. Absent: rash ED Course Vital Signs 03/26/21 03/26/21 03/26/21 10:07 10:30 10:32 Temperature 98.9 F Pulse Rate 130 H 109 H Pulse Rate [ Anterior Bilateral Throughout] Respiratory 32 H 19 22 Rate Respiratory Rate [Anterior Bilateral Throughout] Blood Pressure Blood Pressure 189/85 [Left] O2 Sat by Pulse 99 Oximetry 03/26/21 03/26/21 03/26/21 10:45 10:57 11:00 Temperature Pulse Rate 104 H 102 H Pulse Rate [ 115 H Anterior Bilateral Throughout] Respiratory 17 17 Rate Respiratory 20 Rate [Anterior Bilateral Throughout] Blood Pressure 148/79 140/75 Blood Pressure [Left] O2 Sat by Pulse Oximetry 03/26/21 03/26/21 03/26/21 11:15 11:30 11:45 Temperature Pulse Rate 98 H 100 H 110 H Pulse Rate [ Anterior Bilateral Throughout] Respiratory 11 L 19 19 Rate Respiratory Rate [Anterior Bilateral Throughout] Blood Pressure 151/74 141/82 137/75 Blood Pressure [Left] O2 Sat by Pulse Oximetry 03/26/21 03/26/21 03/26/21 12:00 12:21 12:31 Temperature Pulse Rate 112 H 111 H 114 H Pulse Rate [ Anterior Bilateral Throughout] Respiratory 16 20 Rate Respiratory Rate [Anterior Bilateral Throughout] Blood Pressure 156/83 156/83 156/83 Blood Pressure [Left] O2 Sat by Pulse Oximetry 03/26/21 03/26/21 03/26/21 12:45 13:00 13:15 Temperature Pulse Rate 111 H 109 H 111 H Pulse Rate [ Anterior Bilateral Throughout] Respiratory 17 16 19 Rate Respiratory Rate [Anterior Bilateral Throughout] Blood Pressure 148/71 139/69 134/68 Blood Pressure [Left] O2 Sat by Pulse 93 89 Oximetry 03/26/21 03/26/21 03/26/21 13:30 13:45 14:00 Temperature Pulse Rate 108 H 111 H 111 H Pulse Rate [ Anterior Bilateral Throughout] Respiratory 14 20 19 Rate Respiratory Rate [Anterior Bilateral Throughout] Blood Pressure 132/61 154/77 157/85 Blood Pressure [Left] O2 Sat by Pulse 90 91 91 Oximetry 03/26/21 03/26/21 14:15 14:30 Temperature Pulse Rate 107 H Pulse Rate [ Anterior Bilateral Throughout] Respiratory 15 Rate Respiratory Rate [Anterior Bilateral Throughout] Blood Pressure 155/84 165/93 Blood Pressure [Left] O2 Sat by Pulse 93 Oximetry ED Medical Decision Making - Medical Decision Making Patient received a continuous breathing treatment with 10 of albuterol and 1 Atrovent on arrival to the emergency department Patient received Solu-Medrol IV and IV magnesium Patient received an additional DuoNeb treatment Patient still tachypneic with speech Labs will be followed by admitting physician Critical Care Time: Yes Critical care time in (mins) excluding proc time.: 35 Critical care attestation.: If time is entered above; I have spent that time in minutes in the direct care of this critically ill patient, excluding procedure time. ED Disposition Clinical Impression: Status asthmaticus, Acute severe exacerbation of asthma Disposition: OP ADMIT IP TO THIS HOSP Is pt being admited?: Yes Does the pt Need Aspirin: No Condition: Fair Referrals: PRIMARY CARE, [Primary Care Provider] - 3-5 Days
[2021-03-26] MEDS ORDERED: IPRATROPIUM/ALBUTEROL SULFATE 3 ML AMPUL.NEB IH ONE (12:55)
[2021-03-26] MEDS ORDERED: MAGNESIUM SULFATE 2 GM/50 ML BAG IV ONE (12:55)
--- NOTE | 2021-03-26 15:02 | XRay Report ---
CHEST 1 VIEW 03/26/2021 2:32 PM INDICATION / CLINICAL INFORMATION: sob. COMPARISON: 03/09/2021. FINDINGS: SUPPORT DEVICES: None. HEART / MEDIASTINUM: No significant abnormality. LUNGS / PLEURA: No significant pulmonary or pleural abnormality. No pneumothorax. ADDITIONAL FINDINGS: No significant additional findings. IMPRESSION: No acute abnormality. Signer Name: Nacho Goodson MD Signed: 03/26/2021 2:57 PM Workstation Name: [id number]
[2021-03-26 15:06] LABS: Hemoglobin 12.7 gm/dl (10.1-14.3); Mean Corpuscular HGB Conc 31 % (30-34); Mean Corpuscular Volume 87 fl (79-97); Platelet Count 272 K/mm3 (140-440); Red Blood Count 4.72 M/mm3 (3.65-5.03); Red Cell Distribution Width 14.9 % (13.2-15.2)
[2021-03-26 15:22] LABS: BUN/Creatinine Ratio 8; Blood Urea Nitrogen 7 mg/dL (7-17); Calcium 8.7 mg/dL (8.4-10.2); Hemolysis Index 6
[2021-03-26 21:11] LABS: Band Neutrophils # (Manual) 0.2 K/mm3; Total Cells Counted 100
[2021-03-26 21:12] LABS: Platelet Estimate Consistent w Auto; RBC Morphology Normal
--- NOTE | 2021-03-26 22:09 | History and Physical Report ---
History of Present Illness Date of examination: 03/26/21 Date of admission: 03/26/21 14:38 Chief complaint: Increasing shortness of breath and wheezing for 1 day History of present illness: 50-year-old female with history of asthma and allergic rhinitis presents with severe wheezing and difficulty breathing since yesterday. Patient has used a nebulizer machine at home with no relief. No chest pain. Patient was given multiple treatments in the emergency room along with IV magnesium and IV steroids with no improvement. Patient continues to wheeze. Low oxygen saturations without oxygen supplements. Patient is tachypneic and in respiratory distress. Not improving with treatment in the emergency room. Patient being admitted because of the unresponsiveness to treatment and severe respiratory distress and on BiPAP. Intubation if necessary. No fever or c hills. No exposure to coronavirus. No chest pain. - Past Medical History --Hypertension: Yes --Asthma: Yes Additional medical history: (5) previous intubations due to asthma complications - Surgical History Additional Surgical History: tubal ligation - Social History Smoking Status: Never Smoker Substance Use Type: None --Family history Htn Review of Systems ROS: Stated complaint: ASTHMA ATTACK Other details as noted in HPI Comment: All other systems reviewed and negative Constitutional: denies: chills, fever Eyes: denies: eye pain, eye discharge, vision change ENT: denies: ear pain, throat pain Respiratory: shortness of breath, wheezing. denies: cough Cardiovascular: denies: chest pain, palpitations Endocrine: no symptoms reported Gastrointestinal: denies: abdominal pain, nausea, diarrhea Genitourinary: denies: urgency, dysuria, discharge Musculoskeletal: denies: back pain, joint swelling, arthralgia Skin: denies: rash, lesions Neurological: denies: headache, weakness, paresthesias Psychiatric: denies: anxiety, depression Hematological/Lymphatic: denies: easy bleeding, easy bruising Medications and Allergies Allergies Allergy/AdvReac Type Severity Reaction Status Date / Time wheat Allergy Unknown Verified 03/26/21 10:05 Home Medications Medication Instructions Recorded Confirmed Last Taken Type Mepolizumab [Nucala] 1 syr IJ QMONTH 05/09/20 03/26/21 1 Month Ago History ~04/08/20 Albuterol Mdi (or & Nicu Only) 2 puff IH Q4H PRN 30 Days 07/09/20 03/26/21 03/25/21 22:00 Rx [ProAir HFA Inhaler] Amlodipine Besylate [Norvasc] 5 mg PO QDAY #30 tablet 10/25/20 03/26/21 03/26/21 08:00 Rx Budesonide/Formoterol Fumarate 10.2 gm IH BID #1 hfa.aer.ad 10/25/20 03/26/21 Unknown Rx [Symbicort 160-4.5 Mcg Inhaler] Fluticasone [Flonase] 2 puff PO DAILY 30 Days #1 bottle 10/25/20 03/26/21 02/17/21 17:00 Rx Fluticasone/Vilanterol [Breo 25 mcg IH DAILY #1 10/25/20 03/26/21 Unknown Rx Ellipta 200-25 Mcg INH] Montelukast [Singulair] 10 mg PO QPM #30 tablet 10/25/20 03/26/21 02/17/21 17:00 Rx levoFLOXacin [Levaquin TAB] 750 mg PO Q24HR #3 tablet 02/18/21 03/26/21 Unknown Rx Montelukast [Singulair] 1 mg PO QPM #30 03/09/21 03/26/21 Unknown Rx methylPREDNISolone [Medrol 4MG 15 mg PO DAILY 03/26/21 03/26/21 Unknown History DOSEPAK (21 tabs)] predniSONE 15 tab PO QDAY 03/26/21 03/26/21 03/26/21 18:25 History Exam - Constitutional Vitals: Temp Pulse Resp BP Pulse Ox 98.5 F 108 H 20 147/73 100 03/26/21 21:39 03/26/21 21:39 03/26/21 21:39 03/26/21 21:39 03/26/21 21:39 General appearance: Present: severe distress, well-nourished, other (Patient is tachypneic and intercostal muscles are prominent) - EENT Eyes: Present: PERRL ENT: hearing intact, clear oral mucosa - Neck Neck: Present: supple, normal ROM - Respiratory Respiratory effort: normal Respiratory: bilateral: CTA, rhonchi, wheezing - Cardiovascular Heart rate: 78 Heart Sounds: Present: S1 & S2. Absent: rub, click - Extremities Extremities: no ischemia, pulses intact, pulses symmetrical, No edema Peripheral Pulses: within normal limits - Abdominal General gastrointestinal: Present: soft, non-tender, non-distended, normal bowel sounds Female genitourinary: Present: normal - Rectal Rectal Exam: deferred - Integumentary Integumentary: Present: clear, warm, dry - Musculoskeletal Musculoskeletal: gait normal, strength equal bilaterally - Psychiatric Psychiatric: appropriate mood/affect, intact judgment & insight - Neurologic Neurologic: CNII-XII intact, moves all extremities - Allied Health Allied health notes reviewed: nursing, case management Results - Labs CBC & Chem 7: 03/26/21 14:51 03/26/21 14:51 Labs: Laboratory Last Values WBC 15.6 K/mm3 (4.5-11.0) H 03/26/21 14:51 RBC 4.72 M/mm3 (3.65-5.03) 03/26/21 14:51 Hgb 12.7 gm/dl (10.1-14.3) 03/26/21 14:51 Hct 41.0 % (30.3-42.9) 03/26/21 14:51 MCV 87 fl (79-97) 03/26/21 14:51 MCH 27 pg (28-32) L 03/26/21 14:51 MCHC 31 % (30-34) 03/26/21 14:51 RDW 14.9 % (13.2-15.2) 03/26/21 14:51 Plt Count 272 K/mm3 (140-440) 03/26/21 14:51 Add Manual Diff Complete 03/26/21 14:51 Total Counted 100 03/26/21 14:51 Seg Neutrophils % [employer] 03/26/21 14:51 Band Neutrophils % 1.0 % 03/26/21 14:51 Lymphocytes % (Manual) 3.0 % (13.4-35.0) L 03/26/21 14:51 Nucleated RBC % Not Reportable 03/26/21 14:51 Seg Neutrophils # Man 15.0 K/mm3 (1.8-7.7) H 03/26/21 14:51 Band Neutrophils # 0.2 K/mm3 03/26/21 14:51 Lymphocytes # (Manual) 0.5 K/mm3 (1.2-5.4) L 03/26/21 14:51 Abs React Lymphs (Man) 0.0 K/mm3 03/26/21 14:51 Monocytes # (Manual) 0.0 K/mm3 (0.0-0.8) 03/26/21 14:51 Eosinophils # (Manual) 0.0 K/mm3 (0.0-0.4) 03/26/21 14:51 Basophils # (Manual) 0.0 K/mm3 (0.0-0.1) 03/26/21 14:51 Metamyelocytes # 0.0 K/mm3 03/26/21 14:51 Myelocytes # 0.0 K/mm3 03/26/21 14:51 Promyelocytes # 0.0 K/mm3 03/26/21 14:51 Blast Cells # 0.0 K/mm3 03/26/21 14:51 WBC Morphology Not Reportable 03/26/21 14:51 Hypersegmented Neuts Not Reportable 03/26/21 14:51 Hyposegmented Neuts Not Reportable 03/26/21 14:51 Hypogranular Neuts Not Reportable 03/26/21 14:51 Smudge Cells Not Reportable 03/26/21 14:51 Toxic Granulation Not Reportable 03/26/21 14:51 Toxic Vacuolation Not Reportable 03/26/21 14:51 Dohle Bodies Not Reportable 03/26/21 14:51 Pelger-Huet Anomaly Not Reportable 03/26/21 14:51 Elvin Rods Not Reportable 03/26/21 14:51 Platelet Estimate Consistent w auto 03/26/21 14:51 Clumped Platelets Not Reportable 03/26/21 14:51 Plt Clumps, EDTA Not Reportable 03/26/21 14:51 Large Platelets Not Reportable 03/26/21 14:51 Giant Platelets Not Reportable 03/26/21 14:51 Platelet Satelliting Not Reportable 03/26/21 14:51 Plt Morphology Comment Not Reportable 03/26/21 14:51 RBC Morphology Normal 03/26/21 14:51 Dimorphic RBCs Not Reportable 03/26/21 14:51 Polychromasia Not Reportable 03/26/21 14:51 Hypochromasia Not Reportable 03/26/21 14:51 Poikilocytosis Not Reportable 03/26/21 14:51 Anisocytosis Not Reportable 03/26/21 14:51 Microcytosis Not Reportable 03/26/21 14:51 Macrocytosis Not Reportable 03/26/21 14:51 Spherocytes Not Reportable 03/26/21 14:51 Pappenheimer Bodies Not Reportable 03/26/21 14:51 Sickle Cells Not Reportable 03/26/21 14:51 Target Cells Not Reportable 03/26/21 14:51 Tear Drop Cells Not Reportable 03/26/21 14:51 Ovalocytes Not Reportable 03/26/21 14:51 Helmet Cells Not Reportable 03/26/21 14:51 Buckner-Idamay Bodies Not Reportable 03/26/21 14:51 [place] Rings Not Reportable 03/26/21 14:51 Yusra Cells Not Reportable 03/26/21 14:51 Bite Cells Not Reportable 03/26/21 14:51 Crenated Cell Not Reportable 03/26/21 14:51 Elliptocytes Not Reportable 03/26/21 14:51 Acanthocytes (Spur) Not Reportable 03/26/21 14:51 Rouleaux Not Reportable 03/26/21 14:51 Hemoglobin C Crystals Not Reportable 03/26/21 14:51 Schistocytes Not Reportable 03/26/21 14:51 Malaria parasites Not Reportable 03/26/21 14:51 Sean Bodies Not Reportable 03/26/21 14:51 Hem Pathologist Commnt No 03/26/21 14:51 Sodium 135 mmol/L (137-145) L 03/26/21 14:51 Potassium 3.9 mmol/L (3.6-5.0) 03/26/21 14:51 Chloride 100.3 mmol/L (98-107) 03/26/21 14:51 Carbon Dioxide 18 mmol/L (22-30) L 03/26/21 14:51 Anion Gap 21 mmol/L 03/26/21 14:51 BUN 7 mg/dL (7-17) 03/26/21 14:51 Creatinine 0.9 mg/dL (0.6-1.2) 03/26/21 14:51 Estimated GFR > 60 ml/min 03/26/21 14:51 BUN/Creatinine Ratio 8 % 03/26/21 14:51 Glucose 177 mg/dL (65-100) H 03/26/21 14:51 Calcium 8.7 mg/dL (8.4-10.2) 03/26/21 14:51 Short CBC 03/26/21 Range/Units 14:51 WBC 15.6 H (4.5-11.0) K/mm3 Hgb 12.7 (10.1-14.3) gm/dl Hct 41.0 (30.3-42.9) % Plt Count 272 (140-440) K/mm3 BMP 03/26/21 14:51 Sodium 135 L Potassium 3.9 Chloride 100.3 Carbon Dioxide 18 L BUN 7 Creatinine 0.9 Glucose 177 H Calcium 8.7 - Imaging and Cardiology Chest x-ray: report reviewed (No acute findings) [place]/IV: Voiding Method Toilet Assessment and Plan Advance Directives: Yes (Full code) VTE prophylaxis?: Chemical Plan of care discussed with patient/family: Yes - Patient Problems (1) Acute respiratory failure with hypoxia Current Visit: Yes Status: Acute Plan to address problem: Patient was hypoxic initially and severely tachypneic with respiratory rate of 22 and a heart rate of 130 Patient initiated on IV Solu-Medrol, IV Levaquin and duo nebs [id number] and every 3 as needed. Patient also initiated on Breo and inhalers. Also Pulmicort Respules. Intubation if necessary. (2) SIRS (systemic inflammatory response syndrome) Current Visit: Yes Status: Acute Plan to address problem: Patient has a high white count, tachycardia with heart rate of 139 tachypnea with respiratory rate of 32 (3) Acute asthma exacerbation Current Visit: Yes Status: Acute Qualifiers: Asthma severity: severe Plan to address problem: Patient is severely tachypneic with accessory muscles of respiration being prominent and intercostal muscle respiratory reaction retraction. Patient on BiPAP initially IV Solu-Medrol, IV Levaquin, and duo nebs [id number] and every 3 as needed Continue on Breo and Flonase. (4) Allergic rhinitis Current Visit: Yes Status: Chronic Qualifiers: Allergic rhinitis trigger: pollen Allergic rhinitis seasonality: non- seasonal Qualified Code(s): J30.1 - Allergic rhinitis due to pollen Plan to address problem: Continue Flonase. (5) Hyponatremia Current Visit: Yes Status: Acute Plan to address problem: Very mild IV normal saline for now (6) DVT prophylaxis Current Visit: Yes Status: Acute Plan to address problem: On heparin and GI prophylaxis
[2021-03-26] MEDS ORDERED: ALBUTEROL 8.5 GM MDI INHALATION IH PRN ×2 (22:11→23:00)
[2021-03-26] MEDS ORDERED: NON-FORMULARY EACH (Budesonide/Formoterol Fumarate [Symbicort 160-4.5 Mcg Inhaler] 10.2 GM IH SCH (22:15)
[2021-03-26] MEDS ORDERED: MORPHINE 2 MG/1 ML INJ IV PRN (22:18)
[2021-03-26] MEDS ORDERED: oxyCODONE /ACETAMINOPHEN 5-325MG TAB PO PRN (22:18)
[2021-03-26] MEDS ORDERED: METOCLOPRAMIDE 10 MG/2 ML INJ IV PRN (22:18)
[2021-03-26] MEDS ORDERED: ACETAMINOPHEN 325 MG TAB PO PRN (22:18)
[2021-03-26] MEDS ORDERED: ONDANSETRON 4 MG/2 ML INJ IV PRN (22:18)
[2021-03-26] MEDS ORDERED: IPRATROPIUM/ALBUTEROL SULFATE 3 ML AMPUL.NEB IH PRN (22:20)
[2021-03-26] MEDS ORDERED: SODIUM CHLORIDE 0.9% 1000 ML 1,000 ML IV SCH (22:30)
[2021-03-26] MEDS: HEPARIN 5,000 UNIT/1 ML VIAL SUB-Q SCH (22:58)
[2021-03-26] MEDS: methylPREDNISolone Sod Succinate 40 MG/1 ML INJ IV SCH (22:59)
[2021-03-26] MEDS ORDERED: FAMOTIDINE 20 MG/2 ML INJ IV SCH (23:00)
[2021-03-27] MEDS: methylPREDNISolone Sod Succinate 40 MG/1 ML INJ IV SCH ×2 (06:17→13:57)
[2021-03-27] MEDS: IPRATROPIUM/ALBUTEROL SULFATE 3 ML AMPUL.NEB IH SCH ×2 (07:53→13:37)
[2021-03-27] MEDS ORDERED: ARFORMOTEROL 15 MCG/2 ML NEBU IH SCH (08:00)
[2021-03-27] MEDS ORDERED: BUDESONIDE 0.5 MG/2 ML NEBU IH SCH (08:00)
--- NOTE | 2021-03-27 09:16 | Progress Note ---
Assessment and Plan Assessment and plan: (1) Acute respiratory failure with hypoxia Current Visit: Yes Status: Acute Plan to address problem: Patient was hypoxic initially and severely tachypneic with respiratory rate of 22 and a heart rate of 130 Patient initiated on IV Solu-Medrol, IV Levaquin and duo nebs [id number] and every 3 as needed. Patient also initiated on Breo and inhalers. Also Pulmicort Respules. Intubation if necessary. (2) SIRS (systemic inflammatory response syndrome) Current Visit: Yes Status: Acute Plan to address problem: Patient has a high white count, tachycardia with heart rate of 139 tachypnea with respiratory rate of 32 (3) Acute asthma exacerbation Current Visit: Yes Status: Acute Qualifiers: Asthma severity: severe Plan to address problem: Patient is severely tachypneic with accessory muscles of respiration being prominent and intercostal muscle respiratory reaction retraction. Patient on BiPAP initially IV Solu-Medrol, IV Levaquin, and duo nebs [id number] and every 3 as needed Continue on Breo and Flonase. (4) Allergic rhinitis Current Visit: Yes Status: Chronic Qualifiers: Allergic rhinitis trigger: pollen Allergic rhinitis seasonality: non-se asonal Qualified Code(s): J30.1 - Allergic rhinitis due to pollen Plan to address problem: Continue Flonase. (5) Hyponatremia Current Visit: Yes Status: Acute Plan to address problem: Very mild IV normal saline for now (6) DVT prophylaxis Current Visit: Yes Status: Acute Plan to address problem: On heparin and GI prophylaxis 03/27/2021 -Patient was on 2 L of oxygen, discussed with the nurse to take off her oxygen and ambulate. If saturations okay patient can be discharged. Patient said she has all his medication at home and no need of another medications at discharge. History Interval history: Patient was seen and evaluated this morning Patient was on 2 L of oxygen Patient said she thinks she is at her baseline and wants to be discharged Hospitalist Physical - Physical exam Narrative exam: Not in cardiopulmonary distress. The patient appeared well nourished and normally developed. Vital signs as documented. Head exam is unremarkable. No scleral icterus . Neck is without jugular venous distension, thyromegaly, or carotid bruits. Lungs are clear to auscultation. Cardiac exam reveals regular rate and Rhythm. Abdominal exam reveals normal bowel sounds, nontender, no organomegaly. Extremities are nonedematous and both femoral and pedal pulses are normal. HEAD OF MERCHANDISE BUYING: Alert and oriented 3. No focal weakness. - Constitutional Vitals: Temp Pulse Resp BP Pulse Ox 98.2 F 92 H 20 125/78 97 03/27/21 03:56 03/27/21 03:56 03/27/21 03:56 03/27/21 03:56 03/27/21 03:56 General appearance: Present: severe distress, well-nourished, other (Patient is tachypneic and intercostal muscles are prominent) Results - Labs CBC & Chem 7: 03/27/21 08:11 03/27/21 08:11 Labs: Laboratory Last Values WBC 15.6 K/mm3 (4.5-11.0) H 03/26/21 14:51 RBC 4.72 M/mm3 (3.65-5.03) 03/26/21 14:51 Hgb 12.7 gm/dl (10.1-14.3) 03/26/21 14:51 Hct 41.0 % (30.3-42.9) 03/26/21 14:51 MCV 87 fl (79-97) 03/26/21 14:51 MCH 27 pg (28-32) L 03/26/21 14:51 MCHC 31 % (30-34) 03/26/21 14:51 RDW 14.9 % (13.2-15.2) 03/26/21 14:51 Plt Count 272 K/mm3 (140-440) 03/26/21 14:51 Add Manual Diff Complete 03/26/21 14:51 Total Counted 100 03/26/21 14:51 Seg Neutrophils % Body Former 03/26/21 14:51 Band Neutrophils % 1.0 % 03/26/21 14:51 Lymphocytes % (Manual) 3.0 % (13.4-35.0) L 03/26/21 14:51 Nucleated RBC % Not Reportable 03/26/21 14:51 Seg Neutrophils # Man 15.0 K/mm3 (1.8-7.7) H 03/26/21 14:51 Band Neutrophils # 0.2 K/mm3 03/26/21 14:51 Lymphocytes # (Manual) 0.5 K/mm3 (1.2-5.4) L 03/26/21 14:51 Abs React Lymphs (Man) 0.0 K/mm3 03/26/21 14:51 Monocytes # (Manual) 0.0 K/mm3 (0.0-0.8) 03/26/21 14:51 Eosinophils # (Manual) 0.0 K/mm3 (0.0-0.4) 03/26/21 14:51 Basophils # (Manual) 0.0 K/mm3 (0.0-0.1) 03/26/21 14:51 Metamyelocytes # 0.0 K/mm3 03/26/21 14:51 Myelocytes # 0.0 K/mm3 03/26/21 14:51 Promyelocytes # 0.0 K/mm3 03/26/21 14:51 Blast Cells # 0.0 K/mm3 03/26/21 14:51 WBC Morphology Not Reportable 03/26/21 14:51 Hypersegmented Neuts Not Reportable 03/26/21 14:51 Hyposegmented Neuts Not Reportable 03/26/21 14:51 Hypogranular Neuts Not Reportable 03/26/21 14:51 Smudge Cells Not Reportable 03/26/21 14:51 Toxic Granulation Not Reportable 03/26/21 14:51 Toxic Vacuolation Not Reportable 03/26/21 14:51 Dohle Bodies Not Reportable 03/26/21 14:51 Pelger-Huet Anomaly Not Reportable 03/26/21 14:51 Elvin Rods Not Reportable 03/26/21 14:51 Platelet Estimate Consistent w auto 03/26/21 14:51 Clumped Platelets Not Reportable 03/26/21 14:51 Plt Clumps, EDTA Not Reportable 03/26/21 14:51 Large Platelets Not Reportable 03/26/21 14:51 Giant Platelets Not Reportable 03/26/21 14:51 Platelet Satelliting Not Reportable 03/26/21 14:51 Plt Morphology Comment Not Reportable 03/26/21 14:51 RBC Morphology Normal 03/26/21 14:51 Dimorphic RBCs Not Reportable 03/26/21 14:51 Polychromasia Not Reportable 03/26/21 14:51 Hypochromasia Not Reportable 03/26/21 14:51 Poikilocytosis Not Reportable 03/26/21 14:51 Anisocytosis Not Reportable 03/26/21 14:51 Microcytosis Not Reportable 03/26/21 14:51 Macrocytosis Not Reportable 03/26/21 14:51 Spherocytes Not Reportable 03/26/21 14:51 Pappenheimer Bodies Not Reportable 03/26/21 14:51 Sickle Cells Not Reportable 03/26/21 14:51 Target Cells Not Reportable 03/26/21 14:51 Tear Drop Cells Not Reportable 03/26/21 14:51 Ovalocytes Not Reportable 03/26/21 14:51 Helmet Cells Not Reportable 03/26/21 14:51 Buckner-Louin Bodies Not Reportable 03/26/21 14:51 Mccune Rings Not Reportable 03/26/21 14:51 [place] Cells Not Reportable 03/26/21 14:51 Bite Cells Not Reportable 03/26/21 14:51 Crenated Cell Not Reportable 03/26/21 14:51 Elliptocytes Not Reportable 03/26/21 14:51 Acanthocytes (Spur) Not Reportable 03/26/21 14:51 Rouleaux Not Reportable 03/26/21 14:51 Hemoglobin C Crystals Not Reportable 03/26/21 14:51 Schistocytes Not Reportable 03/26/21 14:51 Malaria parasites Not Reportable 03/26/21 14:51 Sean Bodies Not Reportable 03/26/21 14:51 Hem Pathologist Commnt No 03/26/21 14:51 Sodium 135 mmol/L (137-145) L 03/26/21 14:51 Potassium 3.9 mmol/L (3.6-5.0) 03/26/21 14:51 Chloride 100.3 mmol/L (98-107) 03/26/21 14:51 Carbon Dioxide 18 mmol/L (22-30) L 03/26/21 14:51 Anion Gap 21 mmol/L 03/26/21 14:51 BUN 7 mg/dL (7-17) 03/26/21 14:51 Creatinine 0.9 mg/dL (0.6-1.2) 03/26/21 14:51 Estimated GFR > 60 ml/min 03/26/21 14:51 BUN/Creatinine Ratio 8 % 03/26/21 14:51 Glucose 177 mg/dL (65-100) H 03/26/21 14:51 Calcium 8.7 mg/dL (8.4-10.2) 03/26/21 14:51 [place]/IV: Voiding Method Toilet Active Medications - Current Medications Current Medications: Generic Name Dose Route Start Last Admin Trade Name Freq PRN Reason Stop Dose Admin Acetaminophen 650 mg 03/26/21 22:18 Acetaminophen 325 Mg Tab PO Q4H PRN Pain MILD(1-3)/Fever >100.5/BOOKER Albuterol 2 puff 03/26/21 23:00 Albuterol 8.5 Gm Mdi Inhalation IH Q4HRT PRN Shortness Of Breath Albuterol/Ipratropium 1 ampul 03/27/21 08:00 03/27/21 07:53 Ipratropium/Albuterol Sulfate 3 Ml Ampul.Neb IH 1 ampul QIDRT JOSE D Administration Amlodipine Besylate 5 mg 03/27/21 10:00 Amlodipine 5 Mg Tab PO QDAY JOSE D Arformoterol Tartrate 15 mcg 03/27/21 08:00 03/27/21 07:53 Arformoterol 15 Mcg/2 Ml Nebu IH 15 mcg Q12HRT JOSE D Administration Budesonide 0.5 mg 03/27/21 08:00 03/27/21 07:53 Budesonide 0.5 Mg/2 Ml Nebu IH 0.5 mg Q12HRT JOSE D Administration Famotidine 20 mg 03/27/21 10:00 Famotidine 20 Mg Tab PO BID JOSE D Fluticasone Propionate 50 mcg 03/27/21 10:00 Fluticasone Propionate Nasal [place] 16 Gm NS DAILY [facility] Heparin Sodium (Porcine) 5,000 unit 03/26/21 22:30 03/26/21 22:58 Heparin 5,000 Unit/1 Ml Vial SUB-Q 5,000 unit Q12HR JOSE D Administration Levofloxacin/Dextrose 750 mg in 150 mls @ 100 mls/hr 03/27/21 10:00 Levaquin 750mg/150ml IV 03/31/21 10:59 Q24HR [facility] Protocol Methylprednisolone Sodium Succinate 60 mg 03/26/21 23:00 03/27/21 06:17 Methylprednisolone Sod Succinate 40 Mg/1 Ml Inj IV 60 mg Q8HR JOSE D Administration Metoclopramide HCl 10 mg 03/26/21 22:18 Metoclopramide 10 Mg/2 Ml Inj IV Q6H PRN Nausea And Vomiting Montelukast Sodium 10 mg 03/27/21 18:00 Montelukast 10 Mg Tab PO QPM JOSE D Morphine Sulfate 2 mg 03/26/21 22:18 Morphine 2 Mg/1 Ml Inj IV Q4H PRN Pain, Moderate (4-6) Ondansetron HCl 4 mg 03/26/21 22:18 Ondansetron 4 Mg/2 Ml Inj IV Q8H PRN Nausea And Vomiting Oxycodone/Acetaminophen 1 tab 03/26/21 22:18 Oxycodone /Acetaminophen 5-325mg Tab PO Q6H PRN Pain, Moderate (4-6) Sodium Chloride 10 ml 03/27/21 10:00 Sodium Chloride 0.9% 10 Ml Flush Syringe IV BID JOSE D Sodium Chloride 10 ml 03/26/21 22:18 Sodium Chloride 0.9% 10 Ml Flush Syringe IV PRN PRN LINE FLUSH
[2021-03-27 09:48] LABS: Hematocrit 39.5 % (30.3-42.9); Hemoglobin 12.4 gm/dl (10.1-14.3); Mean Corpuscular HGB Conc 32 % (30-34); Mean Corpuscular Volume 86 fl (79-97); Platelet Count 286 K/mm3 (140-440); Red Blood Count 4.57 M/mm3 (3.65-5.03); Red Cell Distribution Width 15.1 % (13.2-15.2)
[2021-03-27] MEDS: HEPARIN 5,000 UNIT/1 ML VIAL SUB-Q SCH (09:52)
[2021-03-27 09:53] VITALS: BP 126/82
[2021-03-27] MEDS ORDERED: FLUTICASONE IH SCH (10:00)
[2021-03-27] MEDS ORDERED: FLUTICASONE PROPIONATE NASAL SPRAY 16 GM NS SCH (10:00)
[2021-03-27] MEDS ORDERED: VILANTEROL IH SCH (10:00)
[2021-03-27] MEDS ORDERED: amLODIPine 5 MG TAB PO SCH (10:00)
[2021-03-27] MEDS ORDERED: FAMOTIDINE 20 MG TAB PO SCH (10:00)
[2021-03-27 10:15] LABS: Alanine Aminotransferase 11 units/L (7-56); Albumin 3.9 g/dL (3.9-5); BUN/Creatinine Ratio 19; Blood Urea Nitrogen 15 mg/dL (7-17); Calcium 9.2 mg/dL (8.4-10.2); Hemolysis Index 3
[2021-03-27 10:54] LABS: Platelet Estimate Consistent w Auto; RBC Morphology Normal; Total Cells Counted 100; Toxic Granulation 1+
--- NOTE | 2021-03-27 12:32 | Discharge Summary ---
Providers - Providers Date of Admission: 03/26/21 14:38 Date of discharge: 03/27/21 Attending physician: SHANE ROBBINS MD Primary care physician: ELECTRIC PLATER Hospitalization Reason for admission: Asthma exacerbation, acute hypoxic respiratory failure Condition: Stable Hospital course: History of present illness: 50-year-old female with history of asthma and allergic rhinitis presents with severe wheezing and difficulty breathing since yesterday. Patient has used a nebulizer machine at home with no relief. No chest pain. Patient was given multiple treatments in the emergency room along with IV magnesium and IV steroids with no improvement. Patient continues to wheeze. Low oxygen saturations without oxygen supplements. Patient is tachypneic and in respiratory distress. Not improving with treatment in the emergency room. Patient being admitted because of the unresponsiveness to treatment and severe respiratory distress and on BiPAP. Intubation if necessary. No fever or chills. No exposure to coronavirus. No chest pain. Hospital course Patient was admitted to the hospital for asthma exacerbation secondary to seasonal/pollen allergies. Patient was hypoxic and was placed on oxygen support, IV Solu-Medrol, nebulizer treatment, IV Levaquin and continue her home medications. This morning I have seen and evaluated the patient patient was off oxygen, was also evaluated after ambulation and her saturation was good. Patient states she is at her baseline and wants to go home. I go over to her medications and she has enough of her medications at home and does not need a refill. Patient was hemodynamically stable at the time of discharge. Management plan was discussed with the patient and was in agreement with the plan of care. Disposition: [id number]-01 TO HOME OR SELFCARE Final Discharge Diagnosis (Prints w/discharge instructions): Acute hypoxic respiratory failure. Acute asthma exacerbation Time spent for discharge: 25 minutes - Discharge Diagnoses (1) Acute asthma exacerbation Status: Acute Qualifiers: Asthma severity: severe (2) Acute respiratory failure with hypoxia Status: Acute Core Measure Documentation - Palliative Care Palliative Care/ Comfort Measures: Not Applicable - Core Measures Any of the following diagnoses?: none Exam - Physical Exam Narrative exam: Not in cardiopulmonary distress. The patient is morbidly obese. Vital signs as documented. Head exam is unremarkable. No scleral icterus . Neck is without jugular venous distension, thyromegaly, or carotid bruits. Lungs are clear to auscultation. Cardiac exam reveals regular rate and Rhythm. Abdominal exam reveals normal bowel sounds, nontender, no organomegaly. Extremities are nonedematous and both femoral and pedal pulses are normal. PAPER CARRIER: Alert and oriented 3. No focal weakness. - Constitutional Vitals: Temp Pulse Resp BP Pulse Ox 98.2 F 92 H 20 126/82 97 03/27/21 03:56 03/27/21 03:56 03/27/21 03:56 03/27/21 09:52 03/27/21 03:56 Plan Activity: no restrictions Weight Bearing Status: Full Weight Bearing Diet: regular Follow up with: PRIMARY CAREMD [Primary Care Provider] - 3-5 Days
[2021-03-27] MEDS ORDERED: MONTELUKAST 10 MG TAB PO SCH (18:00)
== END 2021-03-27 14:30 | disposition home or self-care (01) ==
LOC: ED 10:03 → 3A 14:38
PROVIDERS: ADMIT Internal Medicine; ATTEND Internal Medicine
DX: J96.01 Acute respiratory failure with hypoxia (principal); R65.10 Systemic inflammatory response syndrome (SIRS) of non-infectious origin without acute organ dysfunction; J45.902 Unspecified asthma with status asthmaticus; J45.901 Unspecified asthma with (acute) exacerbation; J30.9 Allergic rhinitis, unspecified; E87.1 Hypo-osmolality and hyponatremia; Z98.51 Tubal ligation status; Z79.899 Other long term (current) drug therapy
CPT/HCPCS: 36415; 71045; 80048; 80053; 83036; 85025; 94640; 94644; 96361; 96365; 96367; 96372; 96375; 96376; 99291; G0378; J1644; J1956; J2920; J2930; J7030; 85007

== ENCOUNTER 2021-08-05 20:39 | Observation (INO) | payer MEDICARE ==
[2021-08-05] MEDS ORDERED: methylPREDNISolone Sod Succinate 125 MG/2 ML INJ IV ONE (21:20)
[2021-08-05] MEDS ORDERED: ALBUTEROL 2.5 MG/3 ML NEBU IH ONE (21:20)
[2021-08-05] MEDS ORDERED: IPRATROPIUM 0.02% NEBU 2.5 ML IH ONE (21:20)
[2021-08-05] MEDS ORDERED: MAGNESIUM SULFATE 2 GM/50 ML BAG IV ONE (21:20)
--- NOTE | 2021-08-05 21:26 | Emergency Department Report ---
ED Asthma HPI - General Chief Complaint: Adult Asthma Stated Complaint: ASTHMA ATTACK PUI?: No Time Seen by Provider: 08/05/21 21:16 Source: patient Mode of arrival: Ambulatory Limitations: No Limitations - History of Present Illness Initial Comments: CC: asthma HPI: This is a 50 yo female with hx of severe persistent asthma intubations x 5, GERD, OBDULIA, HTN who presents with shortness of breath for one day. Nebulizer providers no relief. No fever, new cough, back pain. 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 Complaint: "asthma attack", shortness of breath, wheezing -: Gradual, days(s) (1 day) Asthma History: history of frequent attac, previously intubated (intubated 5 times) Severity: moderate Context: none known Associated Symptoms: dry cough Treatments Prior to Arrival: inhaled bronchodilator - Related Data Home Medications Medication Instructions Recorded Confirmed Last Taken Mepolizumab [Nucala] 1 syr IJ QMONTH 05/09/20 03/26/21 1 Month Ago ~04/08/20 methylPREDNISolone [Medrol 4MG 15 mg PO DAILY 03/26/21 03/26/21 Unknown DOSEPAK (21 tabs)] predniSONE 15 tab PO QDAY 03/26/21 03/26/21 03/26/21 18:25 Previous Rx's Medication Instructions Recorded Last Taken Type Albuterol Mdi (or & Nicu Only) 2 puff IH Q4H PRN 30 Days 07/09/20 03/25/21 22:00 Rx [ProAir HFA Inhaler] Amlodipine Besylate [Norvasc] 5 mg PO QDAY #30 tablet 10/25/20 03/26/21 08:00 Rx Budesonide/Formoterol Fumarate 10.2 gm IH BID #1 hfa.aer.ad 10/25/20 Unknown Rx [Symbicort 160-4.5 Mcg Inhaler] Fluticasone [Flonase] 2 puff PO DAILY 30 Days #1 bottle 10/25/20 02/17/21 17:00 Rx Fluticasone/Vilanterol [Breo 25 mcg IH DAILY #1 10/25/20 Unknown Rx Ellipta 200-25 Mcg INH] Montelukast [Singulair] 10 mg PO QPM #30 tablet 10/25/20 02/17/21 17:00 Rx levoFLOXacin [Levaquin TAB] 750 mg PO Q24HR #3 tablet 02/18/21 Unknown Rx Montelukast [Singulair] 1 mg PO QPM #30 03/09/21 Unknown Rx Allergies Allergy/AdvReac Type Severity Reaction Status Date / Time wheat Allergy Unknown Verified 03/26/21 10:05 ED Review of Systems ROS: Stated complaint: ASTHMA ATTACK Other details as noted in HPI Comment: All other systems reviewed and negative Constitutional: denies: chills, fever, malaise Respiratory: shortness of breath, wheezing. denies: cough Cardiovascular: denies: chest pain Gastrointestinal: denies: abdominal pain, nausea, vomiting ED Past Medical Hx - Past Medical History Previous Medical History?: Yes Hx Hypertension: Yes Hx Heart Attack/AMI: No Hx Congestive Heart Failure: No Hx Diabetes: No Hx Deep Vein Thrombosis: No Hx Pulmonary Embolism: No Hx Asthma: Yes Hx COPD: No Hx Tuberculosis: No Hx HIV: No Additional medical history: (5) previous intubations due to asthma complications - Surgical History Past Surgical History?: Yes Hx Coronary Stent: No Hx Open Heart Surgery: No Hx Pacemaker: No Hx Internal Defibrillator: No Hx Cholecystectomy: No Hx Appendectomy: No Hx Breast Surgery: No Additional Surgical History: tubal ligation - Family History Family history: hypertension - Social History Smoking Status: Never Smoker Substance Use Type: None - Medications Home Medications: Home Medications Medication Instructions Recorded Confirmed Last Taken Type Mepolizumab [Nucala] 1 syr IJ QMONTH 05/09/20 03/26/21 1 Month Ago History ~04/08/20 Albuterol Mdi (or & Nicu Only) 2 puff IH Q4H PRN 30 Days 07/09/20 03/26/21 03/25/21 22:00 Rx [ProAir HFA Inhaler] Amlodipine Besylate [Norvasc] 5 mg PO QDAY #30 tablet 10/25/20 03/26/21 03/26/21 08:00 Rx Budesonide/Formoterol Fumarate 10.2 gm IH BID #1 hfa.aer.ad 10/25/20 03/26/21 Unknown Rx [Symbicort 160-4.5 Mcg Inhaler] Fluticasone [Flonase] 2 puff PO DAILY 30 Days #1 bottle 10/25/20 03/26/21 02/17/21 17:00 Rx Fluticasone/Vilanterol [Breo 25 mcg IH DAILY #1 10/25/20 03/26/21 Unknown Rx Ellipta 200-25 Mcg INH] Montelukast [Singulair] 10 mg PO QPM #30 tablet 10/25/20 03/26/21 02/17/21 17:00 Rx levoFLOXacin [Levaquin TAB] 750 mg PO Q24HR #3 tablet 02/18/21 03/26/21 Unknown Rx Montelukast [Singulair] 1 mg PO QPM #30 03/09/21 03/26/21 Unknown Rx methylPREDNISolone [Medrol 4MG 15 mg PO DAILY 03/26/21 03/26/21 Unknown History DOSEPAK (21 tabs)] predniSONE 15 tab PO QDAY 03/26/21 03/26/21 03/26/21 18:25 History ED Physical Exam - General Limitations: No Limitations General appearance: alert, in distress, other (audible wheezing, hesitant to speak) - Head Head exam: Present: atraumatic, normocephalic - Eye Eye exam: Present: normal appearance - ENT ENT exam: Present: mucous membranes moist - Neck Neck exam: Present: normal inspection, full ROM - Respiratory Respiratory exam: Present: respiratory distress, wheezes, accessory muscle use, decreased breath sounds, prolonged expiratory. Absent: rales, rhonchi, stridor, chest wall tenderness - Cardiovascular Cardiovascular Exam: Present: normal rhythm, tachycardia, normal heart sounds. Absent: systolic murmur, diastolic murmur, rubs, gallop - GI/Abdominal GI/Abdominal exam: Present: soft, normal bowel sounds. Absent: distended, tenderness, guarding, rebound - Extremities Exam Extremities exam: Present: normal inspection - Neurological Exam Neurological exam: Present: alert, oriented X3 - Psychiatric Psychiatric exam: Present: normal mood, flat affect - Skin Skin exam: Present: warm, dry, intact, normal color. Absent: rash ED Course Vital Signs 08/05/21 20:49 Temperature 97.8 F Pulse Rate 119 H Respiratory 16 Rate Blood Pressure 164/115 [Left] O2 Sat by Pulse 98 Oximetry - Reevaluation(s) Reevaluation #1: 08/05/21 23:27 I reevaluated patient. +decrease air movement expiratory wheezing on exam, g. Breathing 26 breaths/min. Oxygen saturation 100% on room air yet she had discomfort with respiratory effort. She agreed that she needed to be admitted. She agreed to be admitted to the hospital. I spoke with hospitalist and provided bridging orders. ED Medical Decision Making - Lab Data Result diagrams: 08/05/21 21:24 08/05/21 21:24 - Radiology Data Radiology results: report reviewed Patient Name: RONY SHARPE Gender: Female Date of : 1970 Referring Provider: ROSA M LÓPEZ Organization: [facility] Accession Number: [id number] Requested Date: August 05, 2021 21:21 Report Status: Final Requested Procedure: 1 Procedure Description: XR chest 1V ap Modality: XR Findings Reporting MD: Jos Gay Dictation Time: August 05, 2021 21:14 Sanitation Tank Washer: Not available Machine Repairer Date: CHEST 1 VIEW INDICATION / CLINICAL INFORMATION: asthma shortness of breath. COMPARISON: 03/26/2021 FINDINGS: SUPPORT DEVICES: None. HEART / MEDIASTINUM: No significant abnormality. LUNGS / PLEURA: No significant pulmonary or pleural abnormality. No pneumothorax. ADDITIONAL FINDINGS: No significant additional findings. IMPRESSION: 1. No acute findings. Signer Name: Jos Gay MD Signed: 08/05/2021 9:14 PM Workstation Name: [id number] - Medical Decision Making This is a 50-year-old female with history of severe persistent asthma, history of 5 intubations, Clinical impression: Status asthmaticus: Patient treated with IV magnesium, IV Solu-Medrol, continuous nebulizer therapy. Admitted to the hospital service in fair condition. Chest radiograph but no acute findings no evidence of pneumonia or pneumothorax. CBC chemistry within normal limits. Critical Care Time: Yes Critical care time in (mins) excluding proc time.: 40 Critical care attestation.: If time is entered above; I have spent that time in minutes in the direct care of this critically ill patient, excluding procedure time. 40 minutes of critical care time excluding procedures were used in the care of the patient. I came immediately to the bedside upon patient's arrival to treatment room. I discussed treatment plan with clinical team members. I reviewed electronic record. I was concerned for respiratory failure considering patient previously intubated 5 times. Patient required multiple interventions and reassessments. ED Disposition Clinical Impression: Status asthmaticus, Asthma with acute exacerbation in adult Disposition: 09 ADMITTED INPATIENT Is pt being admited?: Yes Does the pt Need Aspirin: No Condition: Fair
[2021-08-05 21:56] LABS: Basophils % (Auto) 0.2 % (0.0-1.8); Eosinophils % (Auto) 0.5 % (0.0-4.3); Hematocrit 41.2 % (30.3-42.9); Hemoglobin 13.3 gm/dl (10.1-14.3); Lymphocytes # (Auto) 1.7 K/mm3 (1.2-5.4); Lymphocytes % (Auto) 19.3 % (13.4-35.0); Mean Corpuscular HGB Conc 32 % (30-34); Mean Corpuscular Volume 86 fl (79-97); Monocytes # (Auto) 0.9 K/mm3 (0.0-0.8); Monocytes % (Auto) 10.1 % (0.0-7.3); Platelet Count 273 K/mm3 (140-440); Red Cell Distribution Width 14.1 % (13.2-15.2)
[2021-08-05 22:05] LABS: BUN/Creatinine Ratio 10; Blood Urea Nitrogen 8 mg/dL (7-17); Calcium 8.8 mg/dL (8.4-10.2); Hemolysis Index 65
--- NOTE | 2021-08-05 22:19 | XRay Report ---
CHEST 1 VIEW INDICATION / CLINICAL INFORMATION: asthma shortness of breath. COMPARISON: 03/26/2021 FINDINGS: SUPPORT DEVICES: None. HEART / MEDIASTINUM: No significant abnormality. LUNGS / PLEURA: No significant pulmonary or pleural abnormality. No pneumothorax. ADDITIONAL FINDINGS: No significant additional findings. IMPRESSION: 1. No acute findings. Signer Name: Jos Gay MD Signed: 08/05/2021 10:14 PM Workstation Name: [id number]
[2021-08-05] MEDS ORDERED: NALOXONE 0.4 MG/1 ML INJ IV PRN (23:44)
[2021-08-05] MEDS ORDERED: oxyCODONE /ACETAMINOPHEN 5-325MG TAB PO PRN (23:44)
[2021-08-05] MEDS ORDERED: ONDANSETRON 4 MG/2 ML INJ IV PRN (23:44)
[2021-08-05] MEDS ORDERED: ALBUTEROL 2.5 MG/3 ML NEBU IH PRN (23:44)
[2021-08-05] MEDS ORDERED: ACETAMINOPHEN 325 MG TAB PO PRN (23:44)
--- NOTE | 2021-08-06 00:05 | History and Physical Report ---
History of Present Illness Date of examination: 08/05/21 Date of admission: 08/05/2021 Chief complaint: Shortness of breath History of present illness: 50-year-old female with history of GERD, OBDULIA, HTN, severe persistent asthma, and allergic rhinitis who presents [facility] ED with complaints of shortness of breath. Patient reports symptomatic shortness of breath x1 day unrelieved with rescue inhaler and nebulizer. 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 Patient has history of intubation x5, and decided to come in for further evaluation and treatment before her symptoms worsen. While in the ED patient was treated with nebulizers, IV steroids, IV magnesium sulfate but remained short of breath with audible wheezes. Patient will be admitted as obs. Denies cough, fever, chills, nausea, vomiting, diarrhea, constipation, headache, chest pain, palpitation, recent environmental/allergic exposure to trigger asthma, or recent sick contacts Past History Past Medical History: GERD, hypertension, other (Severe persistent asthma, allergic rhinitis, OBDULIA) Past Surgical History: Other (Tubal ligation) Social history: full code. denies: smoking, alcohol abuse, prescription drug abuse, IV drug use Family history: hypertension Medications and Allergies Allergies Allergy/AdvReac Type Severity Reaction Status Date / Time wheat Allergy Unknown Verified 03/26/21 10:05 Home Medications Medication Instructions Recorded Confirmed Last Taken Type Mepolizumab [Nucala] 1 syr IJ QMONTH 05/09/20 03/26/21 1 Month Ago History ~04/08/20 Albuterol Mdi (or & Nicu Only) 2 puff IH Q4H PRN 30 Days 07/09/20 03/26/21 03/25/21 22:00 Rx [ProAir HFA Inhaler] Amlodipine Besylate [Norvasc] 5 mg PO QDAY #30 tablet 10/25/20 03/26/21 03/26/21 08:00 Rx Budesonide/Formoterol Fumarate 10.2 gm IH BID #1 hfa.aer.ad 10/25/20 03/26/21 Unknown Rx [Symbicort 160-4.5 Mcg Inhaler] Fluticasone [Flonase] 2 puff PO DAILY 30 Days #1 bottle 10/25/20 03/26/21 02/17/21 17:00 Rx Fluticasone/Vilanterol [Breo 25 mcg IH DAILY #1 10/25/20 03/26/21 Unknown Rx Ellipta 200-25 Mcg INH] Montelukast [Singulair] 10 mg PO QPM #30 tablet 10/25/20 03/26/21 02/17/21 17:00 Rx levoFLOXacin [Levaquin TAB] 750 mg PO Q24HR #3 tablet 02/18/21 03/26/21 Unknown Rx Montelukast [Singulair] 1 mg PO QPM #30 03/09/21 03/26/21 Unknown Rx methylPREDNISolone [Medrol 4MG 15 mg PO DAILY 03/26/21 03/26/21 Unknown History DOSEPAK (21 tabs)] predniSONE 15 tab PO QDAY 03/26/21 03/26/21 03/26/21 18:25 History Active Meds: Active Medications Acetaminophen (Acetaminophen 325 Mg Tab) 650 mg PO Q4H PRN PRN Reason: Pain MILD(1-3)/Fever >100.5/BOOKER Albuterol (Albuterol 2.5 Mg/3 Ml Nebu) 2.5 mg IH Q3HRT PRN PRN Reason: Shortness Of Breath Albuterol/Ipratropium (Ipratropium/Albuterol Sulfate 3 Ml Ampul.Neb) 1 ampul IH Q6HRT [facility] Amlodipine Besylate (Amlodipine 5 Mg Tab) 5 mg PO QDAY JOSE D Budesonide (Budesonide 0.5 Mg/2 Ml Nebu) 0.5 mg IH Q12HRT [facility] Fluticasone Propionate (Fluticasone Propionate Nasal [place] 16 Gm) 100 mcg NS DAILY [facility] Heparin Sodium (Porcine) (Heparin 5,000 Unit/1 Ml Vial) 5,000 unit SUB-Q Q12HR [facility] Methylprednisolone Sodium Succinate (Methylprednisolone Sod Succinate 40 Mg/1 Ml Inj) 80 mg IV Q8HR [facility] Montelukast Sodium (Montelukast 10 Mg Tab) 10 mg PO QPM JOSE D Naloxone HCl (Naloxone 0.4 Mg/1 Ml Inj) 0.1 mg IV Q2MIN PRN PRN Reason: Res Rate </= 8 or 02 SAT < 92% Ondansetron HCl (Ondansetron 4 Mg/2 Ml Inj) 4 mg IV Q6H PRN PRN Reason: Nausea And Vomiting Oxycodone/Acetaminophen (Oxycodone /Acetaminophen 5-325mg Tab) 1 tab PO Q6H PRN PRN Reason: Pain, Moderate (4-6) Sodium Chloride (Sodium Chloride 0.9% 10 Ml Flush Syringe) 10 ml IV BID JOSE D Sodium Chloride (Sodium Chloride 0.9% 10 Ml Flush Syringe) 10 ml IV PRN PRN PRN Reason: LINE FLUSH Review of Systems All systems: negative (As noted in HPI) Exam - Physical Exam Narrative exam: Physical exam General appearance: Present: Slightly uncomfortable, alert and oriented 3, adult female - EENT Eyes: Present: PERRL, EOM intact ENT: hearing intact, normal dentition - Neck Neck: Present: supple, normal ROM - Respiratory Respiratory effort: Labored, unable to talk in complete sentences Respiratory: Scattered wheezing throughout - Cardiovascular Heart rate: 114 (bpm) Rhythm: Sinus tachycardia Heart Sounds: Present: S1 & S2. Absent: rub, click - Extremities Extremities: no ischemia, pulses intact, - Peripheral Assessment Peripheral Pulses: within normal limits - Abdominal General gastrointestinal:obese, soft, non-tender, normal bowel sounds - Integumentary Integumentary: Present: warm, dry - Musculoskeletal Musculoskeletal: Able to move all extremities -Neurological Neurological: CN II-XII intact - Psychiatric Psychiatric: cooperative - Constitutional Vitals: Temp Pulse Resp BP Pulse Ox 97.8 F 119 H 16 164/115 98 08/05/21 20:49 08/05/21 20:49 08/05/21 20:49 08/05/21 20:49 08/05/21 20:49 Results - Labs CBC & Chem 7: 08/05/21 21:24 08/05/21 21:24 Labs: Laboratory Last Values WBC 9.0 K/mm3 (4.5-11.0) 08/05/21 21:24 RBC 4.80 M/mm3 (3.65-5.03) 08/05/21 21:24 Hgb 13.3 gm/dl (10.1-14.3) 08/05/21 21:24 Hct 41.2 % (30.3-42.9) 08/05/21 21:24 MCV 86 fl (79-97) 08/05/21 21:24 MCH 28 pg (28-32) 08/05/21 21:24 MCHC 32 % (30-34) 08/05/21 21:24 RDW 14.1 % (13.2-15.2) 08/05/21 21:24 Plt Count 273 K/mm3 (140-440) 08/05/21 21:24 Lymph % (Auto) 19.3 % (13.4-35.0) 08/05/21 21:24 [place] % (Auto) 10.1 % (0.0-7.3) H 08/05/21 21:24 Eos % (Auto) 0.5 % (0.0-4.3) 08/05/21 21:24 Baso % (Auto) 0.2 % (0.0-1.8) 08/05/21 21:24 Lymph # (Auto) 1.7 K/mm3 (1.2-5.4) 08/05/21 21:24 [place] # (Auto) 0.9 K/mm3 (0.0-0.8) H 08/05/21 21:24 Eos # (Auto) 0.0 K/mm3 (0.0-0.4) 08/05/21 21:24 Baso # (Auto) 0.0 K/mm3 (0.0-0.1) 08/05/21 21:24 Seg Neutrophils % 69.9 % (40.0-70.0) 08/05/21 21:24 Seg Neutrophils # 6.3 K/mm3 (1.8-7.7) 08/05/21 21:24 Sodium 136 mmol/L (137-145) L 08/05/21 21:24 Potassium 3.9 mmol/L (3.6-5.0) 08/05/21 21:24 Chloride 101.3 mmol/L (98-107) 08/05/21 21:24 Carbon Dioxide 25 mmol/L (22-30) 08/05/21 21:24 Anion Gap 14 mmol/L 08/05/21 21:24 BUN 8 mg/dL (7-17) 08/05/21 21:24 Creatinine 0.8 mg/dL (0.6-1.2) 08/05/21 21:24 Estimated GFR > 60 ml/min 08/05/21 21:24 BUN/Creatinine Ratio 10 % 08/05/21 21:24 Glucose 102 mg/dL (65-100) H 08/05/21 21:24 Calcium 8.8 mg/dL (8.4-10.2) 08/05/21 21:24 - Imaging and Cardiology Imaging and Cardiology: CXR: FINDINGS: SUPPORT DEVICES: None. HEART / MEDIASTINUM: No significant abnormality. LUNGS / PLEURA: No significant pulmonary or pleural abnormality. No pneumothorax. ADDITIONAL FINDINGS: No significant additional findings. IMPRESSION: 1. No acute findings. Assessment and Plan Assessment and plan: Acute Exacerbation Asthma -History of severe persistent asthma -CXR negative -Continue supportive care -Scheduled Duo Nebs and Pulmicort, albuterol when necessary -IV systemic steroids -Continue Singulair -Follows Dr. Leonard as outpatient last seen on Thursday 08/02 -If no improvement day team may consider inpatient pulmonary consult History of allergic rhinitis -Continue Flonase HTN -Monitor BP -Resume home hypertensive meds History GERD -on Pepcid History of OBDULIA -Nocturnal CPAP as needed DVT PPX -on Heparin Advance Directives: No VTE prophylaxis?: Chemical, Mechanical Plan of care discussed with patient/family: Yes
[2021-08-06] MEDS: IPRATROPIUM/ALBUTEROL SULFATE 3 ML AMPUL.NEB IH SCH ×2 (03:21→08:50)
[2021-08-06] MEDS ORDERED: methylPREDNISolone Sod Succinate 40 MG/1 ML INJ IV SCH (06:00)
[2021-08-06] MEDS ORDERED: BUDESONIDE 0.5 MG/2 ML NEBU IH SCH (08:00)
[2021-08-06] MEDS ORDERED: FLUTICASONE PROPIONATE NASAL SPRAY 16 GM NS SCH (10:00)
[2021-08-06] MEDS ORDERED: FAMOTIDINE 10 MG TAB PO SCH (10:00)
[2021-08-06] MEDS ORDERED: HEPARIN 5,000 UNIT/1 ML VIAL SUB-Q SCH (10:00)
[2021-08-06] MEDS ORDERED: amLODIPine 5 MG TAB PO SCH (10:00)
[2021-08-06] MEDS: HYDROmorphone 1 MG/1 ML INJ IV ONE ×2 (11:09→11:12)
[2021-08-06 12:35] VITALS: BP 142/78
--- NOTE | 2021-08-06 14:23 | Discharge Summary ---
Providers - Providers Date of Admission: 08/05/21 23:29 Attending physician: LUIS ENRIQUE ANAYA Primary care physician: PURCHASING CLERK Hospitalization Condition: Fair Exam - Constitutional Vitals: Temp Pulse Resp BP Pulse Ox 98.4 F 101 H 20 142/78 100 08/06/21 08:47 08/06/21 12:16 08/06/21 12:16 08/06/21 12:16 08/06/21 12:16 Plan Follow up with: PRIMARY CARE, [Primary Care Provider] - 3-5 Days Prescriptions: Prednisone [predniSONE 10 mg (6-Day Pack, 21 Tabs)] 10 mg PO .TAPER #1 tab.ds.pk Azithromycin [Zithromax TAB] 250 mg PO QDAY #6 tablet
[2021-08-06] MEDS ORDERED: MONTELUKAST 10 MG TAB PO SCH (18:00)
== END 2021-08-06 13:11 | disposition home or self-care (01) ==
LOC: ED 20:39 → 4A 23:29
PROVIDERS: ADMIT Internal Medicine Geriatric Medicine; ATTEND Internal Medicine
DX: J45.902 Unspecified asthma with status asthmaticus (principal); J45.901 Unspecified asthma with (acute) exacerbation; I10 Essential (primary) hypertension; K21.9 Gastro-esophageal reflux disease without esophagitis; G47.33 Obstructive sleep apnea (adult) (pediatric); J30.9 Allergic rhinitis, unspecified; Z98.51 Tubal ligation status
CPT/HCPCS: 36415; 71045; 80048; 85025; 94640; 94644; 96365; 96372; 96375; 96376; 99291; G0378; J1644; J2920; J2930; J3475; J1170

== ENCOUNTER 2021-08-16 13:44 | Inpatient (IN) | payer MEDICARE ==
[2021-08-16] MEDS ORDERED: ALBUTEROL 2.5 MG/3 ML NEBU IH ONE ×2 (14:20→18:13)
[2021-08-16] MEDS ORDERED: IPRATROPIUM 0.02% NEBU 2.5 ML IH ONE ×2 (14:20→18:13)
[2021-08-16] MEDS ORDERED: methylPREDNISolone Sod Succinate 125 MG/2 ML INJ IV ONE (14:22)
[2021-08-16] MEDS ORDERED: MAGNESIUM SULFATE 2 GM/50 ML BAG IV ONE (14:22)
--- NOTE | 2021-08-16 14:32 | Emergency Department Report ---
HPI - General Chief Complaint: Dyspnea/Respdistress Time Seen by Provider: 08/16/21 14:05 - HPI HPI: Room 38 The patient is a 50-year-old female present with a chief complaint of shortness of breath. Patient states for the past 2 hours she has had shortness of breath. The patient states this feels exactly like her asthma. Patient denies history of cough or fever. Patient states she has not been vaccinated against Covid. ED Past Medical Hx - Past Medical History Hx Hypertension: Yes Hx Asthma: Yes Hx Tuberculosis: No Hx HIV: No Additional medical history: (5) previous intubations due to asthma complications - Surgical History Additional Surgical History: tubal ligation - Family History Family history: no significant - Social History Smoking Status: Never Smoker Substance Use Type: None (Denies illicit drug use) - Medications Home Medications: Home Medications Medication Instructions Recorded Confirmed Last Taken Type Mepolizumab [Nucala] 1 syr IJ QMONTH 05/09/20 03/26/21 1 Month Ago History ~04/08/20 Albuterol Mdi (or & Nicu Only) 2 puff IH Q4H PRN 30 Days 07/09/20 03/26/21 03/25/21 22:00 Rx [ProAir HFA Inhaler] Amlodipine Besylate [Norvasc] 5 mg PO QDAY #30 tablet 10/25/20 03/26/21 03/26/21 08:00 Rx Budesonide/Formoterol Fumarate 10.2 gm IH BID #1 hfa.aer.ad 10/25/20 03/26/21 Unknown Rx [Symbicort 160-4.5 Mcg Inhaler] Fluticasone [Flonase] 2 puff PO DAILY 30 Days #1 bottle 10/25/20 03/26/21 02/17/21 17:00 Rx Fluticasone/Vilanterol [Breo 25 mcg IH DAILY #1 10/25/20 03/26/21 Unknown Rx Ellipta 200-25 Mcg INH] Montelukast [Singulair] 10 mg PO QPM #30 tablet 10/25/20 03/26/21 02/17/21 17:00 Rx levoFLOXacin [Levaquin TAB] 750 mg PO Q24HR #3 tablet 02/18/21 03/26/21 Unknown Rx Montelukast [Singulair] 1 mg PO QPM #30 03/09/21 03/26/21 Unknown Rx methylPREDNISolone [Medrol 4MG 15 mg PO DAILY 03/26/21 03/26/21 Unknown History DOSEPAK (21 tabs)] predniSONE 15 tab PO QDAY 03/26/21 03/26/21 03/26/21 18:25 History Azithromycin [Zithromax TAB] 250 mg PO QDAY #6 tablet 08/06/21 Unknown Rx Prednisone [predniSONE 10 mg 10 mg PO .TAPER #1 tab.ds.pk 08/06/21 Unknown Rx (6-Day Pack, 21 Tabs)] ED Review of Systems ROS: Stated complaint: DIFF BREATHING Other details as noted in HPI Constitutional: denies: fever Eyes: denies: eye pain ENT: denies: throat pain Respiratory: shortness of breath, wheezing. denies: cough Endocrine: no symptoms reported Gastrointestinal: denies: abdominal pain Genitourinary: denies: dysuria Musculoskeletal: denies: back pain Neurological: denies: headache Physical Exam - Physical Exam Vital Signs: Vital Signs 08/16/21 08/16/21 13:51 14:11 Temperature 98.5 F Pulse Rate 119 H 106 H Respiratory 18 Rate Blood Pressure 142/80 [Right] O2 Sat by Pulse 99 Oximetry Physical Exam: GENERAL: The patient is well-developed well-nourished female sitting on stretcher not appearing to be in acute distress. [] HEENT: Normocephalic. Atraumatic. Extraocular motions are intact. Patient has moist mucous membranes. NECK: Supple. Trachea midline CHEST/LUNGS: Diffuse wheezing HEART/CARDIOVASCULAR: Regular. There is no tachycardia. There is no gallop rub or murmur. ABDOMEN: Abdomen is soft, nontender. Patient has normal bowel sounds. There is no abdominal distention. SKIN: There is no rash. There is no edema. There is no diaphoresis. NEURO: The patient is awake, alert, and oriented. The patient is cooperative. The patient has no focal neurologic deficits. The patient has normal speech. GCS 15 MUSCULOSKELETAL: There is no evidence of acute injury. ED Course Vital Signs 08/16/21 08/16/21 13:51 14:11 Temperature 98.5 F Pulse Rate 119 H 106 H Respiratory 18 Rate Blood Pressure 142/80 [Right] O2 Sat by Pulse 99 Oximetry - Reevaluation(s) Reevaluation #1: 08/16/21 15:56 Patient states she feels slightly improved but still receiving nebulizer. Patient still has expiratory wheezing. Will reassess Reevaluation #2: 08/16/21 18:15 Patient still wheezing. Will administer another albuterol Atrovent 08/23 neb and reassess ED Medical Decision Making - Lab Data Result diagrams: 08/16/21 14:53 08/16/21 14:53 Laboratory Tests 08/16/21 08/16/21 08/16/21 14:53 14:53 14:53 WBC 11.8 H RBC 4.60 Hgb 12.8 Hct 39.6 MCV 86 MCH 28 MCHC 32 RDW 15.0 Plt Count 272 Lymph % (Auto) 10.9 L [place] % (Auto) 9.4 H Eos % (Auto) 0.2 Baso % (Auto) 0.3 Lymph # (Auto) 1.3 [place] # (Auto) 1.1 H Eos # (Auto) 0.0 Baso # (Auto) 0.0 Seg Neutrophils % 79.2 H Seg Neutrophils # 9.4 H Sodium 141 Potassium 4.3 Chloride 105.2 Carbon Dioxide 23 Anion Gap 17 BUN 12 Creatinine 1.0 Estimated GFR > 60 BUN/Creatinine Ratio 12 Glucose 105 H Calcium 9.2 Total Creatine Kinase 168 H CK-MB (CK-2) 2.0 CK-MB (CK-2) Rel Index 1.1 Troponin T < 0.010 NT-Pro-B Natriuret Pep 08/16/21 14:53 WBC RBC Hgb Hct MCV MCH MCHC RDW Plt Count Lymph % (Auto) [place] % (Auto) Eos % (Auto) Baso % (Auto) Lymph # (Auto) [place] # (Auto) Eos # (Auto) Baso # (Auto) Seg Neutrophils % Seg Neutrophils # Sodium Potassium Chloride Carbon Dioxide Anion Gap BUN Creatinine Estimated GFR BUN/Creatinine Ratio Glucose Calcium Total Creatine Kinase CK-MB (CK-2) CK-MB (CK-2) Rel Index Troponin T NT-Pro-B Natriuret Pep 39.71 - EKG Data -: EKG Interpreted by Md EKG shows normal: sinus rhythm Rate: tachycardia (107 bpm) - EKG Data When compared to previous EKG there are: previous EKG unavailable Interpretation: other (No ischemic changes seen) - Radiology Data Radiology results: report reviewed (Chest x-ray), image reviewed (Chest x-ray) interpreted by me: Chest x-ray-no definite focal infiltrates, no pneumothorax [facility] [address] [place] [address] XRay Report Signed Patient: RONY SHARPE MR#: [id number] : 0 1970 Acct:[id number] Age/Sex: 50 / F ADM Date: 08/16/21 Loc: ED Attending Dr: Ordering Physician: MINH CLEMENTS MD Date of Service: 08/16/21 Procedure(s): XR chest 1V ap Accession Number(s): [id number] cc: MINH CLEMENTS MD Fluoro Time In Minutes: CHEST 1 VIEW 08/16/2021 1:41 PM INDICATION / CLINICAL INFORMATION: Shortness of breath. COMPARISON: 08/05/2021 FINDINGS: SUPPORT DEVICES: None. HEART / MEDIASTINUM: No significant abnormality. LUNGS / PLEURA: No significant pulmonary or pleural abnormality. No pneumothorax. ADDITIONAL FINDINGS: No significant additional findings. IMPRESSION: 1. No acute findings. Signer Name: Eric Gamboa MD Signed: 08/16/2021 2:44 PM Workstation Name: [id number] Transcribed By: TL Dictated By: Eric Gamboa MD Electronically Authenticated By: Eric Gamboa MD Signed Date/Time: 08/16/211443 DD/ 42 TD/TT: Print Cancel - Differential Diagnosis Acute asthma exacerbation Critical care attestation.: If time is entered above; I have spent that time in minutes in the direct care of this critically ill patient, excluding procedure time. ED Disposition Clinical Impression: Acute asthma exacerbation Disposition: ADMITTED INPATIENT Is pt being admited?: Yes Does the pt Need Aspirin: No Condition: Fair Referrals: PRIMARY CARE, [Primary Care Provider] - 3-5 Days Time of Disposition: 19:41 (Hospitalist notified (Dr. Landry))
--- NOTE | 2021-08-16 14:48 | XRay Report ---
CHEST 1 VIEW 08/16/2021 1:41 PM INDICATION / CLINICAL INFORMATION: Shortness of breath. COMPARISON: 08/05/2021 FINDINGS: SUPPORT DEVICES: None. HEART / MEDIASTINUM: No significant abnormality. LUNGS / PLEURA: No significant pulmonary or pleural abnormality. No pneumothorax. ADDITIONAL FINDINGS: No significant additional findings. IMPRESSION: 1. No acute findings. Signer Name: Eric Gamboa MD Signed: 08/16/2021 2:44 PM Workstation Name: [id number]
[2021-08-16 15:41] LABS: BUN/Creatinine Ratio 12; Blood Urea Nitrogen 12 mg/dL (7-17); Calcium 9.2 mg/dL (8.4-10.2); Hemolysis Index 7
[2021-08-16 15:50] LABS: Basophils % (Auto) 0.3 % (0.0-1.8); Eosinophils % (Auto) 0.2 % (0.0-4.3); Hematocrit 39.6 % (30.3-42.9); Hemoglobin 12.8 gm/dl (10.1-14.3); Lymphocytes # (Auto) 1.3 K/mm3 (1.2-5.4); Lymphocytes % (Auto) 10.9 % (13.4-35.0); Mean Corpuscular HGB Conc 32 % (30-34); Mean Corpuscular Volume 86 fl (79-97); Monocytes # (Auto) 1.1 K/mm3 (0.0-0.8); Monocytes % (Auto) 9.4 % (0.0-7.3); Platelet Count 272 K/mm3 (140-440)
--- NOTE | 2021-08-16 23:39 | History and Physical Report ---
History of Present Illness Date of examination: 08/16/21 Date of admission: 08/16/21 19:41 Chief complaint: Increasing wheezing for 2 to 3 hours. Not responding to nebulizer treatments. History of present illness: 50-year-old female with history of asthma comes in for increasing shortness of breath not responding to home nebulizer treatments. Patient had multiple treatments in the emergency room because of the persistent wheezing patient being admitted to the medical floor for observation. No cough or fever. Not vaccinated. No chest pain. Cough for the past sputum. - Past Medical History --Hypertension: Yes --Asthma: Yes -- previous intubations due to asthma complications - Surgical History Additional Surgical History: tubal ligation - Family History Family history: no significant - Social History Smoking Status: Never Smoker Substance Use Type: None (Denies illicit drug use) Review of Systems ROS: Stated complaint: DIFF BREATHING Other details as noted in HPI Constitutional: denies: fever Eyes: denies: eye pain ENT: denies: throat pain Respiratory: shortness of breath, wheezing. denies: cough Endocrine: no symptoms reported Gastrointestinal: denies: abdominal pain Genitourinary: denies: dysuria Musculoskeletal: denies: back pain Neurological: denies: headache Medications and Allergies Allergies Allergy/AdvReac Type Severity Reaction Status Date / Time wheat Allergy Unknown Verified 08/16/21 13:59 Home Medications Medication Instructions Recorded Confirmed Last Taken Type Mepolizumab [Nucala] 1 syr IJ QMONTH 05/09/20 03/26/21 1 Month Ago History ~04/08/20 Albuterol Mdi (or & Nicu Only) 2 puff IH Q4H PRN 30 Days 07/09/20 03/26/21 03/25/21 22:00 Rx [ProAir HFA Inhaler] Amlodipine Besylate [Norvasc] 5 mg PO QDAY #30 tablet 10/25/20 03/26/21 03/26/21 08:00 Rx Budesonide/Formoterol Fumarate 10.2 gm IH BID #1 hfa.aer.ad 10/25/20 03/26/21 Unknown Rx [Symbicort 160-4.5 Mcg Inhaler] Fluticasone [Flonase] 2 puff PO DAILY 30 Days #1 bottle 10/25/20 03/26/21 02/17/21 17:00 Rx Fluticasone/Vilanterol [Breo 25 mcg IH DAILY #1 10/25/20 03/26/21 Unknown Rx Ellipta 200-25 Mcg INH] Montelukast [Singulair] 10 mg PO QPM #30 tablet 10/25/20 03/26/21 02/17/21 17:00 Rx levoFLOXacin [Levaquin TAB] 750 mg PO Q24HR #3 tablet 02/18/21 03/26/21 Unknown Rx Montelukast [Singulair] 1 mg PO QPM #30 03/09/21 03/26/21 Unknown Rx methylPREDNISolone [Medrol 4MG 15 mg PO DAILY 03/26/21 03/26/21 Unknown History DOSEPAK (21 tabs)] predniSONE 15 tab PO QDAY 03/26/21 03/26/21 03/26/21 18:25 History Azithromycin [Zithromax TAB] 250 mg PO QDAY #6 tablet 08/06/21 Unknown Rx Prednisone [predniSONE 10 mg 10 mg PO .TAPER #1 tab.ds.pk 08/06/21 Unknown Rx (6-Day Pack, 21 Tabs)] Exam - Constitutional Vitals: Temp Pulse Resp BP Pulse Ox 98.5 F 114 H 25 H 165/82 100 08/16/21 13:51 08/16/21 22:31 08/16/21 22:31 08/16/21 22:31 08/16/21 22:31 General appearance: Present: no acute distress, severe distress, well-nourished - EENT Eyes: Present: PERRL ENT: hearing intact, clear oral mucosa - Neck Neck: Present: supple, normal ROM - Respiratory Respiratory effort: normal Respiratory: bilateral: CTA, rhonchi, wheezing - Cardiovascular Heart rate: 78 Rhythm: regular Heart Sounds: Present: S1 & S2. Absent: rub, click - Extremities Extremities: pulses symmetrical, No edema Peripheral Pulses: within normal limits - Abdominal General gastrointestinal: Present: soft, non-tender, non-distended, normal bowel sounds Female genitourinary: Present: normal - Integumentary Integumentary: Present: clear, warm, dry - Musculoskeletal Musculoskeletal: gait normal, strength equal bilaterally - Psychiatric Psychiatric: appropriate mood/affect, intact judgment & insight - Neurologic Neurologic: CNII-XII intact, moves all extremities HEART Score - HEART Score Troponin: Troponin T < 0.010 ng/mL (0.00-0.029) 08/16/21 14:53 Results - Labs CBC & Chem 7: 08/16/21 14:53 08/16/21 14:53 Labs: Laboratory Last Values WBC 11.8 K/mm3 (4.5-11.0) H 08/16/21 14:53 RBC 4.60 M/mm3 (3.65-5.03) 08/16/21 14:53 Hgb 12.8 gm/dl (10.1-14.3) 08/16/21 14:53 Hct 39.6 % (30.3-42.9) 08/16/21 14:53 MCV 86 fl (79-97) 08/16/21 14:53 MCH 28 pg (28-32) 08/16/21 14:53 MCHC 32 % (30-34) 08/16/21 14:53 RDW 15.0 % (13.2-15.2) 08/16/21 14:53 Plt Count 272 K/mm3 (140-440) 08/16/21 14:53 Lymph % (Auto) 10.9 % (13.4-35.0) L 08/16/21 14:53 [place] % (Auto) 9.4 % (0.0-7.3) H 08/16/21 14:53 Eos % (Auto) 0.2 % (0.0-4.3) 08/16/21 14:53 Baso % (Auto) 0.3 % (0.0-1.8) 08/16/21 14:53 Lymph # (Auto) 1.3 K/mm3 (1.2-5.4) 08/16/21 14:53 [place] # (Auto) 1.1 K/mm3 (0.0-0.8) H 08/16/21 14:53 Eos # (Auto) 0.0 K/mm3 (0.0-0.4) 08/16/21 14:53 Baso # (Auto) 0.0 K/mm3 (0.0-0.1) 08/16/21 14:53 Seg Neutrophils % 79.2 % (40.0-70.0) H 08/16/21 14:53 Seg Neutrophils # 9.4 K/mm3 (1.8-7.7) H 08/16/21 14:53 Sodium 141 mmol/L (137-145) 08/16/21 14:53 Potassium 4.3 mmol/L (3.6-5.0) 08/16/21 14:53 Chloride 105.2 mmol/L (98-107) 08/16/21 14:53 Carbon Dioxide 23 mmol/L (22-30) 08/16/21 14:53 Anion Gap 17 mmol/L 08/16/21 14:53 BUN 12 mg/dL (7-17) 08/16/21 14:53 Creatinine 1.0 mg/dL (0.6-1.2) 08/16/21 14:53 Estimated GFR > 60 ml/min 08/16/21 14:53 BUN/Creatinine Ratio 12 % 08/16/21 14:53 Glucose 105 mg/dL (65-100) H 08/16/21 14:53 Calcium 9.2 mg/dL (8.4-10.2) 08/16/21 14:53 Total Creatine Kinase 168 units/L (30-135) H 08/16/21 14:53 CK-MB (CK-2) 2.0 ng/mL (0.0-4.0) 08/16/21 14:53 CK-MB (CK-2) Rel Index 1.1 (0-4) 08/16/21 14:53 Troponin T < 0.010 ng/mL (0.00-0.029) 08/16/21 14:53 NT-Pro-B Natriuret Pep 39.71 pg/mL (0-900) 08/16/21 14:53 - Imaging and Cardiology Chest x-ray: report reviewed Imaging and Cardiology: Chest x-ray No acute findings Assessment and Plan Advance Directives: Yes (Full code) VTE prophylaxis?: Chemical Plan of care discussed with patient/family: Yes - Patient Problems (1) Acute respiratory failure with hypoxia Current Visit: No Status: Acute Plan to address problem: Patient is tachypneic and hypoxic Patient on oxygen supplementation and BiPAP if necessary Not responding to nebulizer treatments initially (2) Acute asthma exacerbation Current Visit: Yes Status: Acute Qualifiers: Asthma severity: moderate Plan to address problem: Continue nebulizer treatments and Singulair and IV steroids and IV antibiotics in the form of Zithromax and Rocephin Admitted as observation status May discharge tomorrow if patient improves If not change to inpatient status (3) Malnutrition Current Visit: Yes Status: Chronic Qualifiers: Protein-calorie malnutrition severity: mild Plan to address problem: Dietary supplements initiated Albumin of 3.8 (4) DVT prophylaxis Current Visit: Yes Status: Acute Plan to address problem: On anticoagulation and GI prophylaxis
[2021-08-16] MEDS ORDERED: ALBUTEROL 8.5 GM MDI INHALATION IH PRN (23:42)
[2021-08-16] MEDS ORDERED: ACETAMINOPHEN 325 MG TAB PO PRN (23:44)
[2021-08-16] MEDS ORDERED: HYDROmorphone 1 MG/1 ML INJ IV PRN (23:44)
[2021-08-16] MEDS ORDERED: ONDANSETRON 4 MG/2 ML INJ IV PRN (23:44)
[2021-08-16] MEDS ORDERED: SODIUM CHLORIDE 0.9% 1000 ML 1,000 ML IV SCH (23:45)
[2021-08-16] MEDS ORDERED: NON-FORMULARY EACH (Budesonide/Formoterol Fumarate [Symbicort 160-4.5 Mcg Inhaler] 10.2 GM IH SCH (23:45)
[2021-08-16] MEDS ORDERED: IPRATROPIUM/ALBUTEROL SULFATE 3 ML AMPUL.NEB IH PRN (23:47)
[2021-08-16] MEDS ORDERED: ALBUTEROL 2.5 MG/3 ML NEBU IH PRN (23:50)
[2021-08-17] MEDS ORDERED: ALBUTEROL 2.5 MG/3 ML NEBU IH PRN (00:05)
[2021-08-17] MEDS: cefTRIAXone/NS 2 GM/100 ML 2 GM/100 ML BAG IV SCH ×3 (02:48→22:55)
[2021-08-17] MEDS: methylPREDNISolone Sod Succinate 125 MG/2 ML INJ IV SCH ×4 (02:48→23:08)
[2021-08-17] MEDS: AZITHROMYCIN/NS 500 MG/250 ML 500 MG/250 ML BAG IV SCH ×3 (02:48→22:54)
[2021-08-17] MEDS: HEPARIN 5,000 UNIT/1 ML VIAL SUB-Q SCH ×3 (06:03→21:35)
[2021-08-17 07:14] LABS: Alanine Aminotransferase 18 units/L (7-56); Albumin 3.8 g/dL (3.9-5); BUN/Creatinine Ratio 14; Blood Urea Nitrogen 13 mg/dL (7-17); Calcium 9.2 mg/dL (8.4-10.2); Hemolysis Index 7
[2021-08-17 08:44] LABS: Mean Corpuscular HGB Conc 30 % (30-34); Mean Corpuscular Volume 86 fl (79-97); Platelet Count 272 K/mm3 (140-440)
[2021-08-17 08:46] LABS: Hemoglobin 11.7 gm/dl (10.1-14.3)
[2021-08-17 08:47] LABS: Hematocrit 38.8 % (30.3-42.9)
[2021-08-17] MEDS ORDERED: VILANTEROL IH SCH (10:00)
[2021-08-17] MEDS ORDERED: FLUTICASONE IH SCH (10:00)
[2021-08-17] MEDS: amLODIPine 5 MG TAB PO SCH (10:52)
[2021-08-17] MEDS: oxyCODONE /ACETAMINOPHEN 5-325MG TAB PO PRN (10:52)
[2021-08-17 11:41] LABS: Anisocytosis 1+; Band Neutrophils # (Manual) 5.2 K/mm3; Total Cells Counted 100
[2021-08-17] MEDS: ARFORMOTEROL 15 MCG/2 ML NEBU IH SCH ×2 (12:00→21:01)
[2021-08-17] MEDS: BUDESONIDE 0.5 MG/2 ML NEBU IH SCH ×2 (12:00→21:01)
[2021-08-17] MEDS: IPRATROPIUM/ALBUTEROL SULFATE 3 ML AMPUL.NEB IH SCH ×4 (12:01→21:01)
--- NOTE | 2021-08-17 12:27 | Electrocardiograph Report ---
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
--- NOTE | 2021-08-17 15:16 | Progress Note ---
Assessment and Plan Assessment and plan: #Acute hypoxic respiratory failure #Acute asthma exacerbation -Currently on supplemental oxygen with low threshold to transition to BiPAP therapy if necessary -Prior history of intubations in the setting of acute asthma exacerbation -Continue IV steroids, azithromycin, and ceftriaxone -Continue DuoNebs and Singulair inhaler -Counseled patient about medication compliance; patient expressed understanding #Leukocytosis -WBC 20.8 -Likely secondary to IV steroid administration -We will continue to monitor and will expand antibiotic therapy if patient b ecomes febrile or shows other signs of sepsis #Protein caloric malnutrition -Continue dietary supplement -Nutrition consulted; appreciate recs #DVT prophylaxis -Continue subcutaneous heparin 5000 units every 8 hour Disposition Plan: Continue medical management History Interval history: No acute events overnight. Hospitalist Physical - Constitutional Vitals: Temp Pulse Resp BP Pulse Ox 98.9 F 95 H 16 141/80 100 08/17/21 11:36 08/17/21 12:02 08/17/21 12:02 08/17/21 11:36 08/17/21 11:36 General appearance: Present: no acute distress, well-nourished - EENT Eyes: Present: PERRL, EOM intact ENT: hearing intact, clear oral mucosa, dentition normal - Neck Neck: Present: supple, normal ROM - Respiratory Respiratory effort: normal Respiratory: negative: CTA, diminished, rales (mild wheezing), rhonchi, wheezing - Cardiovascular Rhythm: regular Heart Sounds: Present: S1 & S2 - Extremities Extremities: no ischemia, pulses intact, pulses symmetrical, No edema, normal temperature, normal color Peripheral Pulses: within normal limits - Abdominal General gastrointestinal: soft, non-tender, non-distended, normal bowel sounds - Integumentary Integumentary: Present: clear, warm, dry - Psychiatric Psychiatric: appropriate mood/affect, intact judgment & insight, memory intact, cooperative - Neurologic Neurologic: CNII-XII intact, moves all extremities - Allied Health Allied health notes reviewed: nursing HEART Score - HEART Score History: Slightly suspicious EKG: Non-specific Age: 45-65 Troponin: Troponin T < 0.010 ng/mL (0.00-0.029) 08/16/21 14:53 - Critical Actions Critical Actions: 0-3 pts:0.9-1.7%risk of adverse cardiac event.Candidate for discharge Results - Labs CBC & Chem 7: 08/17/21 06:31 09/25/21 06:31 Labs: Laboratory Last Values WBC 20.8 K/mm3 (4.5-11.0) H 08/17/21 06:31 RBC 4.50 M/mm3 (3.65-5.03) 08/17/21 06:31 Hgb 11.7 gm/dl (10.1-14.3) 08/17/21 06:31 Hct 38.8 % (30.3-42.9) 08/17/21 06:31 MCV 86 fl (79-97) 08/17/21 06:31 MCH 26 pg (28-32) L 08/17/21 06:31 MCHC 30 % (30-34) 08/17/21 06:31 RDW 15.0 % (13.2-15.2) 08/17/21 06:31 Plt Count 272 K/mm3 (140-440) 08/17/21 06:31 Lymph % (Auto) 10.9 % (13.4-35.0) L 08/16/21 14:53 [place] % (Auto) 9.4 % (0.0-7.3) H 08/16/21 14:53 Eos % (Auto) 0.2 % (0.0-4.3) 08/16/21 14:53 Baso % (Auto) 0.3 % (0.0-1.8) 08/16/21 14:53 Lymph # (Auto) 1.3 K/mm3 (1.2-5.4) 08/16/21 14:53 [place] # (Auto) 1.1 K/mm3 (0.0-0.8) H 08/16/21 14:53 Eos # (Auto) 0.0 K/mm3 (0.0-0.4) 08/16/21 14:53 Baso # (Auto) 0.0 K/mm3 (0.0-0.1) 08/16/21 14:53 Add Manual Diff Complete 08/17/21 06:31 Total Counted 100 08/17/21 06:31 Seg Neutrophils % Change Of Address Clerk 08/17/21 06:31 Seg Neuts % (Manual) 68.0 % (40.0-70.0) 08/17/21 06:31 Band Neutrophils % 25.0 % 08/17/21 06:31 Lymphocytes % (Manual) 3.0 % (13.4-35.0) L 08/17/21 06:31 Monocytes % (Manual) 4.0 % (0.0-7.3) 08/17/21 06:31 Nucleated RBC % Not Reportable 08/17/21 06:31 Seg Neutrophils # 9.4 K/mm3 (1.8-7.7) H 08/16/21 14:53 Seg Neutrophils # Man 14.1 K/mm3 (1.8-7.7) H 08/17/21 06:31 Band Neutrophils # 5.2 K/mm3 08/17/21 06:31 Lymphocytes # (Manual) 0.6 K/mm3 (1.2-5.4) L 08/17/21 06:31 Abs React Lymphs (Man) 0.0 K/mm3 08/17/21 06:31 Monocytes # (Manual) 0.8 K/mm3 (0.0-0.8) 08/17/21 06:31 Eosinophils # (Manual) 0.0 K/mm3 (0.0-0.4) 08/17/21 06:31 Basophils # (Manual) 0.0 K/mm3 (0.0-0.1) 08/17/21 06:31 Metamyelocytes # 0.0 K/mm3 08/17/21 06:31 Myelocytes # 0.0 K/mm3 08/17/21 06:31 Promyelocytes # 0.0 K/mm3 08/17/21 06:31 Blast Cells # 0.0 K/mm3 08/17/21 06:31 WBC Morphology Not Reportable 08/17/21 06:31 WBC Morphology TNR 08/17/21 06:31 Hypersegmented Neuts Not Reportable 08/17/21 06:31 Hyposegmented Neuts Not Reportable 08/17/21 06:31 Hypogranular Neuts Not Reportable 08/17/21 06:31 Smudge Cells Not Reportable 08/17/21 06:31 Toxic Granulation Not Reportable 08/17/21 06:31 Toxic Vacuolation Not Reportable 08/17/21 06:31 Dohle Bodies Not Reportable 08/17/21 06:31 Pelger-Huet Anomaly Not Reportable 08/17/21 06:31 Elvin Rods Not Reportable 08/17/21 06:31 Platelet Estimate Not Reportable 08/17/21 06:31 Clumped Platelets Not Reportable 08/17/21 06:31 Plt Clumps, EDTA Not Reportable 08/17/21 06:31 Large Platelets Not Reportable 08/17/21 06:31 Giant Platelets Not Reportable 08/17/21 06:31 Platelet Satelliting Not Reportable 08/17/21 06:31 Plt Morphology Comment Not Reportable 08/17/21 06:31 RBC Morphology Not Reportable 08/17/21 06:31 Dimorphic RBCs Not Reportable 08/17/21 06:31 Polychromasia Not Reportable 08/17/21 06:31 Hypochromasia Not Reportable 08/17/21 06:31 Poikilocytosis Not Reportable 08/17/21 06:31 Anisocytosis 1+ 08/17/21 06:31 Microcytosis Not Reportable 08/17/21 06:31 Macrocytosis Not Reportable 08/17/21 06:31 Spherocytes Not Reportable 08/17/21 06:31 Pappenheimer Bodies Not Reportable 08/17/21 06:31 Sickle Cells Not Reportable 08/17/21 06:31 Target Cells Not Reportable 08/17/21 06:31 Tear Drop Cells Not Reportable 08/17/21 06:31 Ovalocytes Not Reportable 08/17/21 06:31 Helmet Cells Not Reportable 08/17/21 06:31 [place] Bodies Not Reportable 08/17/21 06:31 [place] Rings Not Reportable 08/17/21 06:31 Yusra Cells Not Reportable 08/17/21 06:31 Bite Cells Not Reportable 08/17/21 06:31 Crenated Cell Not Reportable 08/17/21 06:31 Elliptocytes Not Reportable 08/17/21 06:31 Acanthocytes (Spur) Not Reportable 08/17/21 06:31 Rouleaux Not Reportable 08/17/21 06:31 Hemoglobin C Crystals Not Reportable 08/17/21 06:31 Schistocytes Not Reportable 08/17/21 06:31 Malaria parasites Not Reportable 08/17/21 06:31 Sean Bodies Not Reportable 08/17/21 06:31 Hem Pathologist Commnt No 08/17/21 06:31 D-Dimer < 135 ng/mlDDU (0-234) 08/17/21 09:27 Sodium 138 mmol/L (137-145) 08/17/21 06:31 Potassium 4.9 mmol/L (3.6-5.0) 08/17/21 06:31 Chloride 104.1 mmol/L (98-107) 08/17/21 06:31 Carbon Dioxide 23 mmol/L (22-30) 08/17/21 06:31 Anion Gap 16 mmol/L 08/17/21 06:31 BUN 13 mg/dL (7-17) 08/17/21 06:31 Creatinine 0.9 mg/dL (0.6-1.2) 08/17/21 06:31 Estimated GFR > 60 ml/min 08/17/21 06:31 BUN/Creatinine Ratio 14 % 08/17/21 06:31 Glucose 226 mg/dL (65-100) H 08/17/21 06:31 Calcium 9.2 mg/dL (8.4-10.2) 08/17/21 06:31 Ferritin 115.1 ng/mL (10.0-200.0) 08/17/21 09:27 Total Bilirubin 0.20 mg/dL (0.1-1.2) 08/17/21 06:31 AST 14 units/L (5-40) 08/17/21 06:31 ALT 18 units/L (7-56) 08/17/21 06:31 Alkaline Phosphatase 77 units/L (35-129) 08/17/21 06:31 Total Creatine Kinase 168 units/L (30-135) H 08/16/21 14:53 CK-MB (CK-2) 2.0 ng/mL (0.0-4.0) 08/16/21 14:53 CK-MB (CK-2) Rel Index 1.1 (0-4) 08/16/21 14:53 Troponin T < 0.010 ng/mL (0.00-0.029) 08/16/21 14:53 C-Reactive Protein 1.40 mg/dL (0.00-1.30) H 08/17/21 09:27 NT-Pro-B Natriuret Pep 39.71 pg/mL (0-900) 08/16/21 14:53 Total Protein 7.0 g/dL (6.3-8.2) 08/17/21 06:31 Albumin 3.8 g/dL (3.9-5) L 08/17/21 06:31 Albumin/Globulin Ratio 1.2 % 08/17/21 06:31 [place]/IV: Voiding Method Toilet Active Medications - Current Medications Current Medications: Generic Name Dose Route Start Last Admin Trade Name Freq PRN Reason Stop Dose Admin Acetaminophen 650 mg 08/16/21 23:44 Acetaminophen 325 Mg Tab PO Q4H PRN Pain MILD(1-3)/Fever >100.5/BOOKER Albuterol 2.5 mg 08/17/21 00:05 Albuterol 2.5 Mg/3 Ml Nebu IH Q3HRT PRN Wheezing/ SOB Albuterol/Ipratropium 1 ampul 08/17/21 08:00 08/17/21 12:01 Ipratropium/Albuterol Sulfate 3 Ml Ampul.Neb IH 1 ampul QIDRT JOSE D Administration Amlodipine Besylate 5 mg 08/17/21 10:00 08/17/21 10:52 Amlodipine 5 Mg Tab PO 5 mg QDAY JOSE D Administration Arformoterol Tartrate 15 mcg 08/17/21 08:00 08/17/21 12:00 Arformoterol 15 Mcg/2 Ml Nebu IH Not Given Q12HRT JOSE D Budesonide 1 mg 08/17/21 08:00 08/17/21 12:00 Budesonide 0.5 Mg/2 Ml Nebu IH Not Given Q12HRT JOSE D Fluticasone Propionate 100 mcg 08/17/21 10:00 Fluticasone Propionate Nasal [place] 16 Gm NS DAILY JOSE D Heparin Sodium (Porcine) 5,000 unit 08/16/21 23:45 08/17/21 10:53 Heparin 5,000 Unit/1 Ml Vial SUB-Q 5,000 unit Q12HR JOSE D Administration Hydromorphone HCl 0.5 mg 08/16/21 23:44 Hydromorphone 1 Mg/1 Ml Inj IV Q3H PRN Pain , Severe (7-10) Sodium Chloride 1,000 mls @ 42 mls/hr 08/16/21 23:45 Nacl 0.9% 1000 Ml IV DIRECT JOSE D Azithromycin 500 mg in 250 mls @ 250 mls/hr 08/16/21 23:45 08/17/21 02:48 Zithromax/Ns IV 250 mls/hr Q24H JOSE D Administration Ceftriaxone Sodium 2 gm in 100 mls @ 200 mls/hr 08/16/21 23:45 08/17/21 02:48 Rocephin/Ns 2 Gm/100 Ml IV 200 mls/hr Q24H JOSE D Administration Protocol Methylprednisolone Sodium Succinate 80 mg 08/17/21 00:00 08/17/21 10:52 Methylprednisolone Sod Succinate 125 Mg/2 Ml Inj IV 80 mg Q8H JOSE D Administration Montelukast Sodium 10 mg 08/17/21 18:00 Montelukast 10 Mg Tab PO QPM JOSE D Ondansetron HCl 4 mg 08/16/21 23:44 Ondansetron 4 Mg/2 Ml Inj IV Q8H PRN Nausea And Vomiting Oxycodone/Acetaminophen 1 tab 08/16/21 23:44 08/17/21 10:52 Oxycodone /Acetaminophen 5-325mg Tab PO 1 tab Q6H PRN Administration Pain, Moderate (4-6) Sodium Chloride 10 ml 08/16/21 23:45 08/17/21 10:52 Sodium Chloride 0.9% 10 Ml Flush Syringe IV 10 ml BID JOSE D Administration Sodium Chloride 10 ml 08/16/21 23:44 Sodium Chloride 0.9% 10 Ml Flush Syringe IV PRN PRN LINE FLUSH
[2021-08-17] MEDS: MONTELUKAST 10 MG TAB PO SCH (21:36)
[2021-08-17] MEDS: FLUTICASONE PROPIONATE NASAL SPRAY 16 GM NS SCH (21:36)
[2021-08-18 05:55] LABS: Hematocrit 36.9 % (30.3-42.9); Hemoglobin 11.9 gm/dl (10.1-14.3); Mean Corpuscular HGB Conc 32 % (30-34); Mean Corpuscular Volume 87 fl (79-97); Platelet Count 256 K/mm3 (140-440); Red Blood Count 4.27 M/mm3 (3.65-5.03); Red Cell Distribution Width 15.2 % (13.2-15.2)
[2021-08-18 06:20] LABS: BUN/Creatinine Ratio 17; Blood Urea Nitrogen 15 mg/dL (7-17); Calcium 9.2 mg/dL (8.4-10.2); Hemolysis Index 3
[2021-08-18 07:00] LABS: Band Neutrophils # (Manual) 1.1 K/mm3; Myelocytes # (Manual) 0.2 K/mm3; Total Cells Counted 100
[2021-08-18 07:01] LABS: Platelet Estimate Consistent w Auto
[2021-08-18] MEDS: BUDESONIDE 0.5 MG/2 ML NEBU IH SCH ×2 (10:16→21:09)
[2021-08-18] MEDS: ARFORMOTEROL 15 MCG/2 ML NEBU IH SCH ×2 (10:16→21:09)
[2021-08-18] MEDS: IPRATROPIUM/ALBUTEROL SULFATE 3 ML AMPUL.NEB IH SCH ×4 (10:16→21:09)
[2021-08-18] MEDS: oxyCODONE /ACETAMINOPHEN 5-325MG TAB PO PRN (10:17)
[2021-08-18] MEDS: amLODIPine 5 MG TAB PO SCH (10:17)
[2021-08-18] MEDS: HEPARIN 5,000 UNIT/1 ML VIAL SUB-Q SCH ×2 (10:18→21:31)
[2021-08-18] MEDS: methylPREDNISolone Sod Succinate 125 MG/2 ML INJ IV SCH ×2 (10:18→17:58)
--- NOTE | 2021-08-18 16:23 | Progress Note ---
Assessment and Plan Assessment and plan: #Acute hypoxic respiratory failure #Acute asthma exacerbation -Currently on supplemental oxygen 4 L with low threshold to transition to BiPAP therapy if clinical status worsens -Prior history of intubations in the setting of acute asthma exacerbation -Continue IV steroids, azithromycin, and ceftriaxone. Lower clinical suspicion for infection and will consider discontinuing antibiotics on 08/19/2021 -Continue DuoNebs and Singulair inhaler; discussed with RT about importance of nebulizers. Working to administer nebs at least 3 times daily -Counseled patient about medication compliance; patient expressed understanding -Pulmonology consulted; pending rec #Leukocytosis -WBC 22 -Likely secondary to IV steroid administration -We will continue to monitor and will expand antibiotic therapy if patient becomes febrile or shows other signs of sepsis -Patient endorses taking outpatient medication Nucala; however, patient missed injection due to being admitted into the hospital. Discussed need for Nucala administration with pulmonology. Unsure if medication is available in hospital pharmacy. #Protein caloric malnutrition -Continue dietary supplement -Nutrition consulted; appreciate recs #DVT prophylaxis -Continue subcutaneous heparin 5000 units every 8 hour Disposition Plan: Continue medical management Disposition Plan: Continue medical management Total Time Spent with Patient (Minutes): 30 History Interval history: No acute events overnight Hospitalist Physical - Constitutional Vitals: Temp Pulse Resp BP Pulse Ox 98.0 F 87 20 120/63 94 08/18/21 05:50 08/18/21 13:56 08/18/21 13:56 08/18/21 05:50 08/18/21 09:09 General appearance: Present: no acute distress, well-nourished - EENT Eyes: Present: PERRL, EOM intact ENT: hearing intact, clear oral mucosa, dentition normal - Neck Neck: Present: supple, normal ROM - Respiratory Respiratory effort: normal (On 4 L nasal cannula) - Cardiovascular Rhythm: regular Heart Sounds: Present: S1 & S2 - Extremities Extremities: no ischemia, pulses intact, pulses symmetrical, No edema, normal temperature, normal color Peripheral Pulses: within normal limits - Abdominal General gastrointestinal: soft, non-tender, non-distended, normal bowel sounds - Integumentary Integumentary: Present: clear, warm, dry - Psychiatric Psychiatric: appropriate mood/affect, intact judgment & insight, memory intact, cooperative - Neurologic Neurologic: CNII-XII intact, moves all extremities - Allied Health Allied health notes reviewed: nursing HEART Score - HEART Score EKG: Non-specific Age: 45-65 Troponin: Troponin T < 0.010 ng/mL (0.00-0.029) 08/16/21 14:53 - Critical Actions Critical Actions: 0-3 pts:0.9-1.7%risk of adverse cardiac event.Candidate for discharge Results - Labs CBC & Chem 7: 08/18/21 04:41 08/18/21 04:41 Labs: Laboratory Last Values WBC 22.5 K/mm3 (4.5-11.0) H 08/18/21 04:41 RBC 4.27 M/mm3 (3.65-5.03) 08/18/21 04:41 Hgb 11.9 gm/dl (10.1-14.3) 08/18/21 04:41 Hct 36.9 % (30.3-42.9) 08/18/21 04:41 MCV 87 fl (79-97) 08/18/21 04:41 MCH 28 pg (28-32) 08/18/21 04:41 MCHC 32 % (30-34) 08/18/21 04:41 RDW 15.2 % (13.2-15.2) 08/18/21 04:41 Plt Count 256 K/mm3 (140-440) 08/18/21 04:41 Lymph % (Auto) 10.9 % (13.4-35.0) L 08/16/21 14:53 [place] % (Auto) 9.4 % (0.0-7.3) H 08/16/21 14:53 Eos % (Auto) 0.2 % (0.0-4.3) 08/16/21 14:53 Baso % (Auto) 0.3 % (0.0-1.8) 08/16/21 14:53 Lymph # (Auto) 1.3 K/mm3 (1.2-5.4) 08/16/21 14:53 [place] # (Auto) 1.1 K/mm3 (0.0-0.8) H 08/16/21 14:53 Eos # (Auto) 0.0 K/mm3 (0.0-0.4) 08/16/21 14:53 Baso # (Auto) 0.0 K/mm3 (0.0-0.1) 08/16/21 14:53 Add Manual Diff Complete 08/18/21 04:41 Total Counted 100 08/18/21 04:41 Seg Neutrophils % Director Of Programming 08/18/21 04:41 Seg Neuts % (Manual) 91.0 % (40.0-70.0) H 08/18/21 04:41 Band Neutrophils % 5.0 % 08/18/21 04:41 Lymphocytes % (Manual) 3.0 % (13.4-35.0) L 08/17/21 06:31 Monocytes % (Manual) 3.0 % (0.0-7.3) 08/18/21 04:41 Myelocytes % 1.0 % 08/18/21 04:41 Nucleated RBC % Not Reportable 08/18/21 04:41 Seg Neutrophils # 9.4 K/mm3 (1.8-7.7) H 08/16/21 14:53 Seg Neutrophils # Man 20.5 K/mm3 (1.8-7.7) H 08/18/21 04:41 Band Neutrophils # 1.1 K/mm3 08/18/21 04:41 Lymphocytes # (Manual) 0.0 K/mm3 (1.2-5.4) L 08/18/21 04:41 Abs React Lymphs (Man) 0.0 K/mm3 08/18/21 04:41 Monocytes # (Manual) 0.7 K/mm3 (0.0-0.8) 08/18/21 04:41 Eosinophils # (Manual) 0.0 K/mm3 (0.0-0.4) 08/18/21 04:41 Basophils # (Manual) 0.0 K/mm3 (0.0-0.1) 08/18/21 04:41 Metamyelocytes # 0.0 K/mm3 08/18/21 04:41 Myelocytes # 0.2 K/mm3 08/18/21 04:41 Promyelocytes # 0.0 K/mm3 08/18/21 04:41 Blast Cells # 0.0 K/mm3 08/18/21 04:41 WBC Morphology Not Reportable 08/18/21 04:41 Hypersegmented Neuts Not Reportable 08/18/21 04:41 Hyposegmented Neuts Not Reportable 08/18/21 04:41 Hypogranular Neuts Not Reportable 08/18/21 04:41 Smudge Cells Not Reportable 08/18/21 04:41 Toxic Granulation Not Reportable 08/18/21 04:41 Toxic Vacuolation Not Reportable 08/18/21 04:41 Dohle Bodies Not Reportable 08/18/21 04:41 Pelger-[place]uet Anomaly Not Reportable 08/18/21 04:41 Elvin Rods Not Reportable 08/18/21 04:41 Platelet Estimate Consistent w auto 08/18/21 04:41 Clumped Platelets Not Reportable 08/18/21 04:41 Plt Clumps, EDTA Not Reportable 08/18/21 04:41 Large Platelets Not Reportable 08/18/21 04:41 Giant Platelets Not Reportable 08/18/21 04:41 Platelet Satelliting Not Reportable 08/18/21 04:41 Plt Morphology Comment Not Reportable 08/18/21 04:41 RBC Morphology Not Reportable 08/18/21 04:41 Dimorphic RBCs Not Reportable 08/18/21 04:41 Polychromasia Not Reportable 08/18/21 04:41 Hypochromasia Not Reportable 08/18/21 04:41 Poikilocytosis Not Reportable 08/18/21 04:41 Anisocytosis Not Reportable 08/18/21 04:41 Microcytosis Not Reportable 08/18/21 04:41 Macrocytosis Not Reportable 08/18/21 04:41 Spherocytes Not Reportable 08/18/21 04:41 Pappenheimer Bodies Not Reportable 08/18/21 04:41 Sickle Cells Not Reportable 08/18/21 04:41 Target Cells Not Reportable 08/18/21 04:41 Tear Drop Cells Not Reportable 08/18/21 04:41 Ovalocytes Not Reportable 08/18/21 04:41 Helmet Cells Not Reportable 08/18/21 04:41 [place] Bodies Not Reportable 08/18/21 04:41 [place] Rings Not Reportable 08/18/21 04:41 Yusra Cells Not Reportable 08/18/21 04:41 Bite Cells Not Reportable 08/18/21 04:41 Crenated Cell Not Reportable 08/18/21 04:41 Elliptocytes Not Reportable 08/18/21 04:41 Acanthocytes (Spur) Not Reportable 08/18/21 04:41 Rouleaux Not Reportable 08/18/21 04:41 Hemoglobin C Crystals Not Reportable 08/18/21 04:41 Schistocytes Not Reportable 08/18/21 04:41 Malaria parasites Not Reportable 08/18/21 04:41 Sean Bodies Not Reportable 08/18/21 04:41 Hem Pathologist Commnt No 08/18/21 04:41 D-Dimer < 135 ng/mlDDU (0-234) 08/17/21 09:27 Sodium 141 mmol/L (137-145) 08/18/21 04:41 Potassium 4.9 mmol/L (3.6-5.0) 08/18/21 04:41 Chloride 106.0 mmol/L (98-107) 08/18/21 04:41 Carbon Dioxide 24 mmol/L (22-30) 08/18/21 04:41 Anion Gap 16 mmol/L 08/18/21 04:41 BUN 15 mg/dL (7-17) 08/18/21 04:41 Creatinine 0.9 mg/dL (0.6-1.2) 08/18/21 04:41 Estimated GFR > 60 ml/min 08/18/21 04:41 BUN/Creatinine Ratio 17 % 08/18/21 04:41 Glucose 172 mg/dL (65-100) H 08/18/21 04:41 Calcium 9.2 mg/dL (8.4-10.2) 08/18/21 04:41 Ferritin 115.1 ng/mL (10.0-200.0) 08/17/21 09:27 Total Bilirubin 0.20 mg/dL (0.1-1.2) 08/17/21 06:31 AST 14 units/L (5-40) 08/17/21 06:31 ALT 18 units/L (7-56) 08/17/21 06:31 Alkaline Phosphatase 77 units/L (35-129) 08/17/21 06:31 Total Creatine Kinase 168 units/L (30-135) H 08/16/21 14:53 CK-MB (CK-2) 2.0 ng/mL (0.0-4.0) 08/16/21 14:53 CK-MB (CK-2) Rel Index 1.1 (0-4) 08/16/21 14:53 Troponin T < 0.010 ng/mL (0.00-0.029) 08/16/21 14:53 C-Reactive Protein 1.40 mg/dL (0.00-1.30) H 08/17/21 09:27 NT-Pro-B Natriuret Pep 39.71 pg/mL (0-900) 08/16/21 14:53 Total Protein 7.0 g/dL (6.3-8.2) 08/17/21 06:31 Albumin 3.8 g/dL (3.9-5) L 08/17/21 06:31 Albumin/Globulin Ratio 1.2 % 08/17/21 06:31 Coronavirus (PCR) Negative (Negative) 08/18/21 09:15 [place]/IV: Voiding Method Toilet Active Medications - Current Medications Current Medications: Generic Name Dose Route Start Last Admin Trade Name Freq PRN Reason Stop Dose Admin Acetaminophen 650 mg 08/16/21 23:44 Acetaminophen 325 Mg Tab PO Q4H PRN Pain MILD(1-3)/Fever >100.5/BOOKER Albuterol 2.5 mg 08/17/21 00:05 Albuterol 2.5 Mg/3 Ml Nebu IH Q3HRT PRN Wheezing/ SOB Albuterol/Ipratropium 1 ampul 08/17/21 08:00 08/18/21 16:01 Ipratropium/Albuterol Sulfate 3 Ml Ampul.Neb IH Not Given QIDRT JOSE D Amlodipine Besylate 5 mg 08/17/21 10:00 08/18/21 10:17 Amlodipine 5 Mg Tab PO 5 mg QDAY JOSE D Administration Arformoterol Tartrate 15 mcg 08/17/21 08:00 08/18/21 10:16 Arformoterol 15 Mcg/2 Ml Nebu IH Not Given Q12HRT JOSE D Budesonide 1 mg 08/17/21 08:00 08/18/21 10:16 Budesonide 0.5 Mg/2 Ml Nebu IH Not Given Q12HRT JOSE D Fluticasone Propionate 100 mcg 08/17/21 10:00 08/17/21 21:36 Fluticasone Propionate Nasal [place] 16 Gm NS Not Given DAILY [facility] Heparin Sodium (Porcine) 5,000 unit 08/16/21 23:45 08/18/21 10:18 Heparin 5,000 Unit/1 Ml Vial SUB-Q 5,000 unit Q12HR JOSE D Administration Hydromorphone HCl 0.5 mg 08/16/21 23:44 Hydromorphone 1 Mg/1 Ml Inj IV Q3H PRN Pain , Severe (7-10) Sodium Chloride 1,000 mls @ 42 mls/hr 08/16/21 23:45 Nacl 0.9% 1000 Ml IV DIRECT JOSE D Azithromycin 500 mg in 250 mls @ 250 mls/hr 08/16/21 23:45 08/17/21 22:54 Zithromax/Ns IV Not Given Q24H JOSE D Ceftriaxone Sodium 2 gm in 100 mls @ 200 mls/hr 08/16/21 23:45 08/17/21 22:55 Rocephin/Ns 2 Gm/100 Ml IV Not Given Q24H [facility] Protocol Methylprednisolone Sodium Succinate 80 mg 08/17/21 00:00 08/18/21 10:18 Methylprednisolone Sod Succinate 125 Mg/2 Ml Inj IV 80 mg Q8H JOSE D Administration Montelukast Sodium 10 mg 08/17/21 18:00 08/17/21 21:36 Montelukast 10 Mg Tab PO 10 mg QPM JOSE D Administration Ondansetron HCl 4 mg 08/16/21 23:44 Ondansetron 4 Mg/2 Ml Inj IV Q8H PRN Nausea And Vomiting Oxycodone/Acetaminophen 1 tab 08/16/21 23:44 08/18/21 10:17 Oxycodone /Acetaminophen 5-325mg Tab PO 1 tab Q6H PRN Administration Pain, Moderate (4-6) Sodium Chloride 10 ml 08/16/21 23:45 08/18/21 10:18 Sodium Chloride 0.9% 10 Ml Flush Syringe IV 10 ml BID JOSE D Administration Sodium Chloride 10 ml 08/16/21 23:44 Sodium Chloride 0.9% 10 Ml Flush Syringe IV PRN PRN LINE FLUSH
[2021-08-18] MEDS: MONTELUKAST 10 MG TAB PO SCH (17:58)
[2021-08-19] MEDS: cefTRIAXone/NS 2 GM/100 ML 2 GM/100 ML BAG IV SCH (00:24)
[2021-08-19] MEDS: AZITHROMYCIN/NS 500 MG/250 ML 500 MG/250 ML BAG IV SCH (00:24)
[2021-08-19] MEDS: methylPREDNISolone Sod Succinate 125 MG/2 ML INJ IV SCH ×3 (00:24→18:31)
[2021-08-19 07:14] LABS: Hemoglobin 11.2 gm/dl (10.1-14.3); Mean Corpuscular HGB Conc 31 % (30-34); Mean Corpuscular Volume 87 fl (79-97); Platelet Count 246 K/mm3 (140-440); Red Blood Count 4.16 M/mm3 (3.65-5.03); Red Cell Distribution Width 15.1 % (13.2-15.2)
[2021-08-19 07:29] LABS: Blood Urea Nitrogen 15 mg/dL (7-17); Calcium 8.6 mg/dL (8.4-10.2); Hemolysis Index 15
[2021-08-19 07:33] LABS: BUN/Creatinine Ratio 21
[2021-08-19] MEDS: ARFORMOTEROL 15 MCG/2 ML NEBU IH SCH ×2 (07:51→21:13)
[2021-08-19] MEDS: IPRATROPIUM/ALBUTEROL SULFATE 3 ML AMPUL.NEB IH SCH ×4 (07:51→21:13)
[2021-08-19] MEDS: BUDESONIDE 0.5 MG/2 ML NEBU IH SCH ×2 (07:52→21:12)
[2021-08-19] MEDS: amLODIPine 5 MG TAB PO SCH (10:36)
[2021-08-19] MEDS: HEPARIN 5,000 UNIT/1 ML VIAL SUB-Q SCH ×2 (10:36→22:21)
--- NOTE | 2021-08-19 10:36 | Electrocardiograph Report ---
[facility] Test Date: 2021-08-16 Test Time: 14:17:51 Pat Name: RONY SHARPE Department: Room: A474 1 Gender: F Service Desk Lead: CASSY : 1970 Requested By: RAHEL GARCIA Order Number: [id number] Reading MD: Laz Contreras Measurements Intervals [place] Rate: 86 P: 43 NV: 186 QRS: 11 QRSD: 97 T: 33 QT: 392 QTc: 470 Interpretive Statements Sinus rhythm Anterior infarct, old Compared to ECG 08/16/2021 14:06:38 Myocardial infarct finding now present Sinus tachycardia no longer present Electronically Signed On 08-19-2021 10:36:31 EDT by Laz Contreras
[2021-08-19] MEDS: FLUTICASONE PROPIONATE NASAL SPRAY 16 GM NS SCH (10:37)
--- NOTE | 2021-08-19 13:07 | Progress Note ---
Assessment and Plan Assessment and plan: #Acute hypoxic respiratory failure-improved #Acute asthma exacerbation -Currently on supplemental oxygen 4 L with low threshold to transition to BiPAP therapy if clinical status worsens -Prior history of intubations in the setting of acute asthma exacerbation -Continue IV steroids, azithromycin, and ceftriaxone. Discontinuing all antibiotics due to low clinical suspicion for infectious etiology. -Covid negative -Continue DuoNebs and Singulair inhaler; discussed with RT about importance of nebulizers. Working to administer nebs at least 3 times daily -Counseled patient about medication compliance; patient expressed understanding -Pulmonology consulted; pending rec #Leukocytosis-improved -WBC 13.3 -Likely secondary to IV steroid administration (reactionary) -We will continue to monitor and will expand antibiotic therapy if patient becomes febrile or shows other signs of sepsis -Patient endorses taking outpatient medication Nucala; however, patient missed injection due to being admitted into the hospital. Discussed need for Nucala administration with pulmonology. Unsure if medication is available in hospital pharmacy. #Protein caloric malnutrition -Continue dietary supplement -Nutrition consulted; appreciate recs #DVT prophylaxis -Continue subcutaneous heparin 5000 units every 8 hour Disposition Plan: Pending possible discharge Total Time Spent with Patient (Minutes): 25 History Interval history: No acute events overnight Hospitalist Physical - Constitutional Vitals: Temp Pulse Resp BP Pulse Ox 98.2 F 72 18 95/51 99 08/19/21 08:00 08/19/21 08:00 08/19/21 08:00 08/19/21 08:00 08/19/21 08:00 General appearance: Present: no acute distress, well-nourished - EENT Eyes: Present: PERRL, EOM intact ENT: hearing intact, clear oral mucosa, dentition normal - Neck Neck: Present: supple, normal ROM - Respiratory Respiratory effort: normal (Currently on 2 L nasal cannula) - Cardiovascular Rhythm: regular Heart Sounds: Present: S1 & S2 - Extremities Extremities: no ischemia, pulses intact, pulses symmetrical, No edema, normal temperature, normal color Peripheral Pulses: within normal limits - Abdominal General gastrointestinal: soft, non-tender, non-distended, normal bowel sounds - Integumentary Integumentary: Present: clear, warm, dry - Psychiatric Psychiatric: appropriate mood/affect, intact judgment & insight, memory intact, cooperative - Neurologic Neurologic: CNII-XII intact, moves all extremities - Allied Health Allied health notes reviewed: nursing HEART Score - HEART Score EKG: Non-specific Age: 45-65 Troponin: Troponin T < 0.010 ng/mL (0.00-0.029) 08/16/21 14:53 - Critical Actions Critical Actions: 0-3 pts:0.9-1.7%risk of adverse cardiac event.Candidate for discharge Results - Labs CBC & Chem 7: 08/19/21 06:48 08/19/21 06:48 Labs: Laboratory Last Values WBC 13.3 K/mm3 (4.5-11.0) H 08/19/21 06:48 RBC 4.16 M/mm3 (3.65-5.03) 08/19/21 06:48 Hgb 11.2 gm/dl (10.1-14.3) 08/19/21 06:48 Hct 36.0 % (30.3-42.9) 08/19/21 06:48 MCV 87 fl (79-97) 08/19/21 06:48 MCH 27 pg (28-32) L 08/19/21 06:48 MCHC 31 % (30-34) 08/19/21 06:48 RDW 15.1 % (13.2-15.2) 08/19/21 06:48 Plt Count 246 K/mm3 (140-440) 08/19/21 06:48 Lymph % (Auto) 10.9 % (13.4-35.0) L 08/16/21 14:53 [place] % (Auto) 9.4 % (0.0-7.3) H 08/16/21 14:53 Eos % (Auto) 0.2 % (0.0-4.3) 08/16/21 14:53 Baso % (Auto) 0.3 % (0.0-1.8) 08/16/21 14:53 Lymph # (Auto) 1.3 K/mm3 (1.2-5.4) 08/16/21 14:53 [place] # (Auto) 1.1 K/mm3 (0.0-0.8) H 08/16/21 14:53 Eos # (Auto) 0.0 K/mm3 (0.0-0.4) 08/16/21 14:53 Baso # (Auto) 0.0 K/mm3 (0.0-0.1) 08/16/21 14:53 Add Manual Diff Complete 08/18/21 04:41 Total Counted 100 08/18/21 04:41 Seg Neutrophils % Parts Representative 08/19/21 06:48 Seg Neuts % (Manual) 91.0 % (40.0-70.0) H 08/18/21 04:41 Band Neutrophils % 5.0 % 08/18/21 04:41 Lymphocytes % (Manual) 3.0 % (13.4-35.0) L 08/17/21 06:31 Monocytes % (Manual) 3.0 % (0.0-7.3) 08/18/21 04:41 Myelocytes % 1.0 % 08/18/21 04:41 Nucleated RBC % Not Reportable 08/18/21 04:41 Seg Neutrophils # 9.4 K/mm3 (1.8-7.7) H 08/16/21 14:53 Seg Neutrophils # Man 20.5 K/mm3 (1.8-7.7) H 08/18/21 04:41 Band Neutrophils # 1.1 K/mm3 08/18/21 04:41 Lymphocytes # (Manual) 0.0 K/mm3 (1.2-5.4) L 08/18/21 04:41 Abs React Lymphs (Man) 0.0 K/mm3 08/18/21 04:41 Monocytes # (Manual) 0.7 K/mm3 (0.0-0.8) 08/18/21 04:41 Eosinophils # (Manual) 0.0 K/mm3 (0.0-0.4) 08/18/21 04:41 Basophils # (Manual) 0.0 K/mm3 (0.0-0.1) 08/18/21 04:41 Metamyelocytes # 0.0 K/mm3 08/18/21 04:41 Myelocytes # 0.2 K/mm3 08/18/21 04:41 Promyelocytes # 0.0 K/mm3 08/18/21 04:41 Blast Cells # 0.0 K/mm3 08/18/21 04:41 WBC Morphology Not Reportable 08/18/21 04:41 Hypersegmented Neuts Not Reportable 08/18/21 04:41 Hyposegmented Neuts Not Reportable 08/18/21 04:41 Hypogranular Neuts Not Reportable 08/18/21 04:41 Smudge Cells Not Reportable 08/18/21 04:41 Toxic Granulation Not Reportable 08/18/21 04:41 Toxic Vacuolation Not Reportable 08/18/21 04:41 Dohle Bodies Not Reportable 08/18/21 04:41 Pelger-Huet Anomaly Not Reportable 08/18/21 04:41 Elvin Rods Not Reportable 08/18/21 04:41 Platelet Estimate Consistent w auto 08/18/21 04:41 Clumped Platelets Not Reportable 08/18/21 04:41 Plt Clumps, EDTA Not Reportable 08/18/21 04:41 Large Platelets Not Reportable 08/18/21 04:41 Giant Platelets Not Reportable 08/18/21 04:41 Platelet Satelliting Not Reportable 08/18/21 04:41 Plt Morphology Comment Not Reportable 08/18/21 04:41 RBC Morphology Not Reportable 08/18/21 04:41 Dimorphic RBCs Not Reportable 08/18/21 04:41 Polychromasia Not Reportable 08/18/21 04:41 Hypochromasia Not Reportable 08/18/21 04:41 Poikilocytosis Not Reportable 08/18/21 04:41 Anisocytosis Not Reportable 08/18/21 04:41 Microcytosis Not Reportable 08/18/21 04:41 Macrocytosis Not Reportable 08/18/21 04:41 Spherocytes Not Reportable 08/18/21 04:41 Pappenheimer Bodies Not Reportable 08/18/21 04:41 Sickle Cells Not Reportable 08/18/21 04:41 Target Cells Not Reportable 08/18/21 04:41 Tear Drop Cells Not Reportable 08/18/21 04:41 Ovalocytes Not Reportable 08/18/21 04:41 Helmet Cells Not Reportable 08/18/21 04:41 [place] Bodies Not Reportable 08/18/21 04:41 [place] Rings Not Reportable 08/18/21 04:41 Yusra Cells Not Reportable 08/18/21 04:41 Bite Cells Not Reportable 08/18/21 04:41 Crenated Cell Not Reportable 08/18/21 04:41 Elliptocytes Not Reportable 08/18/21 04:41 Acanthocytes (Spur) Not Reportable 08/18/21 04:41 Rouleaux Not Reportable 08/18/21 04:41 Hemoglobin C Crystals Not Reportable 08/18/21 04:41 Schistocytes Not Reportable 08/18/21 04:41 Malaria parasites Not Reportable 08/18/21 04:41 Sean Bodies Not Reportable 08/18/21 04:41 Hem Pathologist Commnt No 08/18/21 04:41 D-Dimer < 135 ng/mlDDU (0-234) 08/17/21 09:27 Sodium 136 mmol/L (137-145) L 08/19/21 06:48 Potassium 5.1 mmol/L (3.6-5.0) H 08/19/21 06:48 Chloride 105.1 mmol/L (98-107) 08/19/21 06:48 Carbon Dioxide 28 mmol/L (22-30) 08/19/21 06:48 Anion Gap 8 mmol/L 08/19/21 06:48 BUN 15 mg/dL (7-17) 08/19/21 06:48 Creatinine 0.7 mg/dL (0.6-1.2) 08/19/21 06:48 Estimated GFR > 60 ml/min 08/19/21 06:48 BUN/Creatinine Ratio 21 % 08/19/21 06:48 Glucose 217 mg/dL (65-100) H 08/19/21 06:48 Calcium 8.6 mg/dL (8.4-10.2) 08/19/21 06:48 Phosphorus 2.30 mg/dL (2.5-4.5) L 08/19/21 06:48 Magnesium 2.30 mg/dL (1.7-2.3) 08/19/21 06:48 Ferritin 115.1 ng/mL (10.0-200.0) 08/17/21 09:27 Total Bilirubin 0.20 mg/dL (0.1-1.2) 08/17/21 06:31 AST 14 units/L (5-40) 08/17/21 06:31 ALT 18 units/L (7-56) 08/17/21 06:31 Alkaline Phosphatase 77 units/L (35-129) 08/17/21 06:31 Total Creatine Kinase 168 units/L (30-135) H 08/16/21 14:53 CK-MB (CK-2) 2.0 ng/mL (0.0-4.0) 08/16/21 14:53 CK-MB (CK-2) Rel Index 1.1 (0-4) 08/16/21 14:53 Troponin T < 0.010 ng/mL (0.00-0.029) 08/16/21 14:53 C-Reactive Protein 1.40 mg/dL (0.00-1.30) H 08/17/21 09:27 NT-Pro-B Natriuret Pep 39.71 pg/mL (0-900) 08/16/21 14:53 Total Protein 7.0 g/dL (6.3-8.2) 08/17/21 06:31 Albumin 3.8 g/dL (3.9-5) L 08/17/21 06:31 Albumin/Globulin Ratio 1.2 % 08/17/21 06:31 Coronavirus (PCR) Negative (Negative) 08/18/21 09:15 [place]/IV: Voiding Method Toilet Active Medications - Current Medications Current Medications: Generic Name Dose Route Start Last Admin Trade Name Freq PRN Reason Stop Dose Admin Acetaminophen 650 mg 08/16/21 23:44 Acetaminophen 325 Mg Tab PO Q4H PRN Pain MILD(1-3)/Fever >100.5/BOOKER Albuterol 2.5 mg 08/17/21 00:05 Albuterol 2.5 Mg/3 Ml Nebu IH Q3HRT PRN Wheezing/ SOB Albuterol/Ipratropium 1 ampul 08/17/21 08:00 08/19/21 07:51 Ipratropium/Albuterol Sulfate 3 Ml Ampul.Neb IH 1 ampul QIDRT JOSE D Administration Amlodipine Besylate 5 mg 08/17/21 10:00 08/19/21 10:36 Amlodipine 5 Mg Tab PO 5 mg QDAY JOSE D Administration Arformoterol Tartrate 15 mcg 08/17/21 08:00 08/19/21 07:51 Arformoterol 15 Mcg/2 Ml Nebu IH 15 mcg Q12HRT JOSE D Administration Budesonide 1 mg 08/17/21 08:00 08/19/21 07:52 Budesonide 0.5 Mg/2 Ml Nebu IH 1 mg Q12HRT JOSE D Administration Fluticasone Propionate 100 mcg 08/17/21 10:00 08/19/21 10:37 Fluticasone Propionate Nasal [place] 16 Gm NS 100 mcg DAILY JOSE D Administration Heparin Sodium (Porcine) 5,000 unit 08/16/21 23:45 08/19/21 10:36 Heparin 5,000 Unit/1 Ml Vial SUB-Q 5,000 unit Q12HR JOSE D Administration Hydromorphone HCl 0.5 mg 08/16/21 23:44 Hydromorphone 1 Mg/1 Ml Inj IV Q3H PRN Pain , Severe (7-10) Sodium Chloride 1,000 mls @ 42 mls/hr 08/16/21 23:45 Nacl 0.9% 1000 Ml IV DIRECT JOSE D Azithromycin 500 mg in 250 mls @ 250 mls/hr 08/16/21 23:45 08/19/21 00:24 Zithromax/Ns IV 250 mls/hr Q24H JOSE D Administration Ceftriaxone Sodium 2 gm in 100 mls @ 200 mls/hr 08/16/21 23:45 08/19/21 00:24 Rocephin/Ns 2 Gm/100 Ml IV 200 mls/hr Q24H JOSE D Administration Protocol Methylprednisolone Sodium Succinate 80 mg 08/17/21 00:00 08/19/21 10:37 Methylprednisolone Sod Succinate 125 Mg/2 Ml Inj IV 80 mg Q8H JOSE D Administration Montelukast Sodium 10 mg 08/17/21 18:00 08/18/21 17:58 Montelukast 10 Mg Tab PO 10 mg QPM JOSE D Administration Ondansetron HCl 4 mg 08/16/21 23:44 Ondansetron 4 Mg/2 Ml Inj IV Q8H PRN Nausea And Vomiting Oxycodone/Acetaminophen 1 tab 08/16/21 23:44 08/18/21 10:17 Oxycodone /Acetaminophen 5-325mg Tab PO 1 tab Q6H PRN Administration Pain, Moderate (4-6) Sodium Chloride 10 ml 08/16/21 23:45 08/19/21 10:40 Sodium Chloride 0.9% 10 Ml Flush Syringe IV 10 ml BID JOSE D Administration Sodium Chloride 10 ml 08/16/21 23:44 Sodium Chloride 0.9% 10 Ml Flush Syringe IV PRN PRN LINE FLUSH
[2021-08-19 16:23] LABS: Platelet Estimate Consistent w Auto; RBC Morphology Normal; Total Cells Counted 100
[2021-08-20] MEDS: methylPREDNISolone Sod Succinate 125 MG/2 ML INJ IV SCH (00:59)
[2021-08-20 06:22] LABS: Mean Corpuscular HGB Conc 31 % (30-34); Mean Corpuscular Volume 87 fl (79-97); Platelet Count 239 K/mm3 (140-440); Red Blood Count 4.38 M/mm3 (3.65-5.03)
[2021-08-20 06:31] LABS: Hematocrit 37.9 % (30.3-42.9); Hemoglobin 11.6 gm/dl (10.1-14.3)
[2021-08-20 06:40] LABS: BUN/Creatinine Ratio 14; Blood Urea Nitrogen 13 mg/dL (7-17); Hemolysis Index 15
[2021-08-20] MEDS: IPRATROPIUM/ALBUTEROL SULFATE 3 ML AMPUL.NEB IH SCH ×2 (08:46→13:38)
[2021-08-20] MEDS: BUDESONIDE 0.5 MG/2 ML NEBU IH SCH (08:46)
[2021-08-20] MEDS: ARFORMOTEROL 15 MCG/2 ML NEBU IH SCH (09:04)
--- NOTE | 2021-08-20 09:25 | Event Note ---
Date: 08/20/21 Patient well known to me and our practice. Admitted with asthma exacerbation but now stable. Saw patient for consult yesterday but [facility] was down and I was unable to complete my consult note. No objection to discharge to follow up with my partner Dr. La. Resume home regimen and patient can reschedule her nucala injection through our office.
[2021-08-20] MEDS: amLODIPine 5 MG TAB PO SCH (10:27)
[2021-08-20] MEDS: HEPARIN 5,000 UNIT/1 ML VIAL SUB-Q SCH (10:27)
[2021-08-20] MEDS: FLUTICASONE PROPIONATE NASAL SPRAY 16 GM NS SCH (10:27)
[2021-08-20 11:18] VITALS: BP 135/56
--- NOTE | 2021-08-20 11:31 | Discharge Summary ---
Providers - Providers Date of Admission: 08/16/21 23:45 Date of discharge: 08/20/21 Attending physician: BHARTI THACKER MD Primary care physician: KALEIGH JONES MD Hospitalization Reason for admission: Shortness of breath Condition: Fair Hospital course: 50-year-old female with past medical history of asthma who presented on 08/16 with shortness of breath that was not treated with home meds. She was found to be in respiratory distress and hypoxic. She was started on steroids and empiric antibiotics. Antibiotics were later discontinued. Pulmonology was consulted. Patient was advised to reschedule outpatient appointment for part stabilizing asthma injection. Once patient was stable and no longer requiring oxygen she was discharged. Disposition: 01 HOME / SELF CARE / HOMELESS Final Discharge Diagnosis (Prints w/discharge instructions): Acute asthma exacerbation. Acute hypoxic respiratory failure Time spent for discharge: 20 minutes Core Measure Documentation - Palliative Care Palliative Care/ Comfort Measures: Not Applicable - Core Measures Any of the following diagnoses?: none Exam - Physical Exam Narrative exam: GENERAL: Well-developed well-nourished. Sitting on the side of the bed in no acute distress. CHEST/LUNGS: Minimal bilateral wheezing posteriorly HEART/CARDIOVASCULAR: RRR. No murmur, rubs or gallops appreciated. ABDOMEN: +BS. NT/ND. NEURO: No focal motor deficit. EXTREMITIES: No cyanosis, clubbing or edema. PSYCH: Cooperative. - Constitutional Vitals: Temp Pulse Resp BP Pulse Ox 98.1 F 95 H 18 135/56 100 08/20/21 11:16 08/20/21 11:16 08/20/21 11:16 08/20/21 11:16 08/20/21 11:16 Plan Care Plan Goals: Follow up with Pulmonology for Nucala injection. Will evaluate for need for home oxygen. Assessment: Patient improved. Denies shortness of breath. Will follow up with Business Services Officer for missed Nucala dose. Patient has medications at home. Discharged after home O2 evaluation. Follow up with: PRIMARY CARE, [Primary Care Provider] - 3-5 Days Prescriptions: Prednisone [predniSONE 10 mg (6-Day Pack, 21 Tabs)] 10 mg PO .TAPER #1 tab.ds.pk
[2021-08-20 12:12] LABS: Total Cells Counted 100
[2021-08-20 12:13] LABS: Platelet Estimate Consistent w Auto; RBC Morphology Normal
== END 2021-08-20 15:00 | disposition home or self-care (01) | DRG 189 ==
LOC: ED 13:44 → 4A 19:41 → OBSVTOIN 23:45
PROVIDERS: ADMIT Internal Medicine; ATTEND Student in an Organized Health Care Education/Training Program
DX: J96.01 Acute respiratory failure with hypoxia (principal); J45.901 Unspecified asthma with (acute) exacerbation; E44.1 Mild protein-calorie malnutrition; Z68.41 Body mass index [BMI] 40.0-44.9, adult; Z20.822 Contact with and (suspected) exposure to COVID-19; I10 Essential (primary) hypertension; Z98.51 Tubal ligation status; D72.829 Elevated white blood cell count, unspecified; Z91.018 Allergy to other foods
CPT/HCPCS: 36415; 71045; 80048; 80053; 82550; 82553; 82728; 83735; 83880; 84100; 84484; 85007; 85025; 85379; 86140; 93005; 94640; 94644; 94760; G0378; J0456; J0696; J1644; J2930; J3475; U0003

== ENCOUNTER 2021-09-08 16:27 | Emergency (ER) | payer MEDICARE ==
[2021-09-08] MEDS ORDERED: MAGNESIUM SULFATE 2 GM/50 ML BAG IV ONE (16:51)
[2021-09-08] MEDS ORDERED: ALBUTEROL 2.5 MG/3 ML NEBU IH ONE ×3 (16:51→21:52)
[2021-09-08] MEDS ORDERED: IPRATROPIUM 0.02% NEBU 2.5 ML IH ONE ×3 (16:51→21:52)
[2021-09-08] MEDS ORDERED: predniSONE 20 MG TAB PO ONE (16:51)
[2021-09-08] MEDS ORDERED: SODIUM CHLORIDE 0.9% 1000 ML 1,000 ML IV ONE ×2 (16:52→19:48)
--- NOTE | 2021-09-08 16:55 | Emergency Department Report ---
ED Asthma HPI - General Chief Complaint: Adult Asthma Stated Complaint: ASTHMA Time Seen by Provider: 09/08/21 16:40 Source: patient Mode of arrival: Ambulatory Limitations: No Limitations - History of Present Illness Initial Comments: Patient presents with asthma exacerbation. She has a long history of asthma. Has been intubated 5 times before. She states that she started having trouble breathing several days ago. This progressively worsened. This has not responded to her nebs or inhalers at home. She has minimal cough. It has not been productive. She has no chest pain. Has no fevers or chills. There has been no new swelling or pain in the extremities. She has no recent travel or immobility. Patient states that she feels as though she did prior to intubation previously. - Related Data Home Medications Medication Instructions Recorded Confirmed Last Taken Mepolizumab [Nucala] 1 syr IJ QMONTH 05/09/20 09/08/21 09/08/21 Previous Rx's Medication Instructions Recorded Last Taken Type Albuterol Mdi (or & Nicu Only) 2 puff IH Q4H PRN 30 Days 07/09/20 03/25/21 22:00 Rx [ProAir HFA Inhaler] Budesonide/Formoterol Fumarate 10.2 gm IH BID #1 hfa.aer.ad 10/25/20 09/08/21 Rx [Symbicort 160-4.5 Mcg Inhaler] Fluticasone [Flonase] 2 puff PO DAILY 30 Days #1 bottle 10/25/20 09/08/21 Rx Fluticasone/Vilanterol [Breo 25 mcg IH DAILY #1 10/25/20 09/08/21 Rx Ellipta 200-25 Mcg INH] Montelukast [Singulair] 10 mg PO QPM #30 tablet 10/25/20 09/08/21 Rx Montelukast [Singulair] 1 mg PO QPM #30 03/09/21 09/08/21 16:57 Rx predniSONE [Deltasone] 50 mg PO QDAY #5 tab 09/08/21 Unknown Rx Allergies Allergy/AdvReac Type Severity Reaction Status Date / Time wheat Allergy Unknown Verified 09/08/21 16:43 ED Review of Systems ROS: Stated complaint: ASTHMA Other details as noted in HPI Comment: All other systems reviewed and negative Constitutional: denies: fever Eyes: denies: vision change ENT: denies: throat pain Respiratory: see HPI Cardiovascular: as per HPI. denies: chest pain Endocrine: denies: unexplained weight loss Genitourinary: denies: dysuria Musculoskeletal: denies: back pain Skin: denies: rash Neurological: denies: headache Hematological/Lymphatic: denies: easy bruising ED Past Medical Hx - Past Medical History Hx Hypertension: Yes Hx Asthma: Yes ( Intubated multiple times) Hx Tuberculosis: No Hx HIV: No Additional medical history: (5) previous intubations due to asthma complications - Surgical History Additional Surgical History: tubal ligation - Family History Family history: asthma - Social History Smoking Status: Never Smoker - Medications Home Medications: Home Medications Medication Instructions Recorded Confirmed Last Taken Type Mepolizumab [Nucala] 1 syr IJ QMONTH 05/09/20 09/08/21 09/08/21 History Albuterol Mdi (or & Nicu Only) 2 puff IH Q4H PRN 30 Days 07/09/20 09/08/21 03/25/21 22:00 Rx [ProAir HFA Inhaler] Budesonide/Formoterol Fumarate 10.2 gm IH BID #1 hfa.aer.ad 10/25/20 09/08/21 09/08/21 Rx [Symbicort 160-4.5 Mcg Inhaler] Fluticasone [Flonase] 2 puff PO DAILY 30 Days #1 bottle 10/25/20 09/08/21 09/08/21 Rx Fluticasone/Vilanterol [Breo 25 mcg IH DAILY #1 10/25/20 09/08/21 09/08/21 Rx Ellipta 200-25 Mcg INH] Montelukast [Singulair] 10 mg PO QPM #30 tablet 10/25/20 09/08/21 09/08/21 Rx Montelukast [Singulair] 1 mg PO QPM #30 03/09/21 09/08/21 09/08/21 16:57 Rx predniSONE [Deltasone] 50 mg PO QDAY #5 tab 09/08/21 Unknown Rx ED Physical Exam - General Limitations: No Limitations, Other ( pulse ox was noted. She was hypoxic. This improved with treatment.) General appearance: alert, in distress ( Moderate) - Head Head exam: Present: atraumatic, normocephalic, normal inspection - Eye Eye exam: Present: normal appearance, EOMI. Absent: scleral icterus - ENT ENT exam: Present: normal exam, normal orophraynx, normal external ear exam - Neck Neck exam: Present: normal inspection. Absent: meningismus - Respiratory Respiratory exam: Present: respiratory distress ( moderate with 3 word dyspnea), wheezes ( bilateral), accessory muscle use, decreased breath sounds, prolonged expiratory - Cardiovascular Cardiovascular Exam: Present: normal rhythm, tachycardia - GI/Abdominal GI/Abdominal exam: Present: soft. Absent: tenderness - Extremities Exam Extremities exam: Present: normal capillary refill. Absent: pedal edema, calf tenderness - Back Exam Back exam: Absent: CVA tenderness (R), CVA tenderness (L) - Neurological Exam Neurological exam: Present: alert, oriented X3, CN II-XII intact. Absent: motor sensory deficit - Psychiatric Psychiatric exam: Present: normal affect, normal mood - Skin Skin exam: Present: warm, dry ED Course Vital Signs 09/08/21 09/08/21 09/08/21 17:26 17:31 17:45 Pulse Rate 119 H 107 H 107 H Respiratory 16 23 Rate Blood Pressure [Right] O2 Sat by Pulse 99 98 Oximetry 09/08/21 09/08/21 09/08/21 18:01 18:15 18:31 Pulse Rate 105 H 106 H 101 H Respiratory 18 19 19 Rate Blood Pressure [Right] O2 Sat by Pulse 99 98 98 Oximetry 09/08/21 09/08/21 09/08/21 18:45 18:53 19:17 Pulse Rate 98 H 100 H 130 H Respiratory 13 19 22 Rate Blood Pressure 131/73 [Right] O2 Sat by Pulse 99 98 93 Oximetry - Reevaluation(s) Reevaluation #1: 09/08/21 16:55 continuous albuterol neb was ordered along with steroids and Atrovent. Chest x-ray was ordered. Records reviewed. Reevaluation #2: 09/08/21 19:01 Chest x-ray have been noted and discussed with the patient. We did recheck room air sats and the patient had done well after the nebulizer. She was subsequently discharged. Reevaluation #3: 09/08/21 19:21 After the neb, patient was not hypoxic. She was subsequently discharged. Tachycardia was noted and it was secondary to the continuous neb. ED Medical Decision Making - Lab Data Result diagrams: 09/08/21 17:35 09/08/21 17:35 Rhythm strip: Normal sinus rhythm without ectopy. Monitor observe 10 seconds. - Radiology Data Radiology results: report reviewed - Medical Decision Making Patient presents secondary to difficulty breathing. She has a history of asthma. She does not have evidence of pneumonia or pneumothorax. She does not have respiratory failure. There is no pulmonary edema noted. She does not have radiographic findings suggestive of coronavirus. Patient was treated aggressively. She does not have ongoing hypoxia. There is no increased oxygen requirement. She was treated symptomatically and referred for outpatient evaluation. She does not have a cough that is changed from baseline. I do not believe antibiotic therapy would be necessary. She has no hypoxia. There is no immobility. She denies pain or swelling in 1 leg. I do not believe this represents PE. Critical Care Time: No Critical care attestation.: If time is entered above; I have spent that time in minutes in the direct care of this critically ill patient, excluding procedure time. ED Disposition Clinical Impression: Shortness of breath Asthma exacerbation Qualifiers: Asthma severity: moderate Asthma persistence: persistent Qualified Code(s): J45.41 - Moderate persistent asthma with (acute) exacerbation Disposition: 01 HOME / SELF CARE / HOMELESS Is pt being admited?: No Condition: Stable Instructions: Asthma, Adult, Shortness of Breath, Adult, [id number], Asthma Attack Prevention, Adult Additional Instructions: Drink plenty water. Continue home medication. Avoid all forms of smoke. Follow-up with your regular doctor for recheck. Return for any problems or concerns. Prescriptions: predniSONE [Deltasone] 50 mg PO QDAY #5 tab Referrals: PRIMARY CARE, [Referring] - 3-5 Days AMEENA FERREIRA MD [Staff Physician] - 3-5 Days
--- NOTE | 2021-09-08 17:29 | XRay Report ---
CHEST 1 VIEW 09/08/2021 5:15 PM INDICATION / CLINICAL INFORMATION: sob. COMPARISON: 08/16/2021 FINDINGS: SUPPORT DEVICES: None. HEART / MEDIASTINUM: No significant abnormality. LUNGS / PLEURA: Mild blunting of right costophrenic angle could represent trace pleural effusion. No focal lung consolidation. No pneumothorax. ADDITIONAL FINDINGS: No significant additional findings. IMPRESSION: 1. Mild blunting of right costophrenic angle could represent trace pleural effusion. Otherwise, no ac andie abnormality. Signer Name: Justin Rodriguez MD Signed: 09/08/2021 5:24 PM Workstation Name: [id number]
[2021-09-08 17:46] LABS: Hematocrit 39.5 % (30.3-42.9); Mean Corpuscular HGB Conc 33 % (30-34); Mean Corpuscular Volume 87 fl (79-97); Platelet Count 219 K/mm3 (140-440); Red Blood Count 4.55 M/mm3 (3.65-5.03)
[2021-09-08 18:06] LABS: BUN/Creatinine Ratio 16; Blood Urea Nitrogen 14 mg/dL (7-17); Calcium 9.5 mg/dL (8.4-10.2); Hemolysis Index 4
[2021-09-09 01:19] VITALS: BP 139/88
== END 2021-09-09 01:19 | disposition home or self-care (01) ==
LOC: ED 16:27
DX: J45.901 Unspecified asthma with (acute) exacerbation (principal); R06.02 Shortness of breath; I10 Essential (primary) hypertension; Z98.890 Other specified postprocedural states; Z91.018 Allergy to other foods
CPT/HCPCS: 36415; 71045; 80048; 85027; 94640; 96361; 96365; 99284; J3475; J7030; J7512; 94644

== ENCOUNTER 2021-12-08 14:20 | Emergency (ER) | payer MEDICARE ==
[2021-12-08] MEDS ORDERED: IPRATROPIUM 0.02% NEBU 2.5 ML IH ONE ×5 (14:46→18:05)
[2021-12-08] MEDS ORDERED: ALBUTEROL 2.5 MG/3 ML NEBU IH ONE ×5 (14:46→18:05)
[2021-12-08] MEDS ORDERED: methylPREDNISolone Sod Succinate 125 MG/2 ML INJ IV ONE (14:56)
[2021-12-08] MEDS ORDERED: TERBUTALINE 1 MG/1 ML INJ SUB-Q ONE (14:56)
[2021-12-08] MEDS ORDERED: SODIUM CHLORIDE 0.9% 500 ML 500 ML IV ONE (14:56)
[2021-12-08 15:31] LABS: Basophils % (Auto) 0.2 % (0.0-1.8); Eosinophils % (Auto) 0.2 % (0.0-4.3); Lymphocytes # (Auto) 1.3 K/mm3 (1.2-5.4); Lymphocytes % (Auto) 10.4 % (13.4-35.0); Mean Corpuscular HGB Conc 31 % (30-34); Mean Corpuscular Volume 85 fl (79-97); Platelet Count 239 K/mm3 (140-440); Red Blood Count 4.89 M/mm3 (3.65-5.03); Red Cell Distribution Width 14.4 % (13.2-15.2)
[2021-12-08 15:34] LABS: Hematocrit 41.6 % (30.3-42.9); Hemoglobin 12.8 gm/dl (10.1-14.3)
[2021-12-08 15:40] LABS: INR 0.88 (0.87-1.13)
--- NOTE | 2021-12-08 15:42 | XRay Report ---
CHEST 1 VIEW, 12/08/2021 3:14 PM CLINICAL INFORMATION/INDICATION: Shortness of breath COMPARISON: Chest radiograph, 09/08/2021 FINDINGS: SUPPORT DEVICES: None. HEART: The cardiac silhouette is normal in size. LUNGS/PLEURA: The lungs are clear of focal airspace disease or significant pleural effusion. ADDITIONAL FINDINGS: No additional acute findings. IMPRESSION: 1. No evidence of acute cardiopulmonary process. Signer Name: Cori Day MD Signed: 12/08/2021 3:38 PM Workstation Name: [id number]
[2021-12-08 15:55] LABS: Creatine Kinase MB 2.7 ng/mL (0.0-4.0)
[2021-12-08 15:57] LABS: Alanine Aminotransferase 17 units/L (7-56); Albumin 3.9 g/dL (3.9-5); BUN/Creatinine Ratio 16; Blood Urea Nitrogen 13 mg/dL (7-17); Calcium 8.5 mg/dL (8.4-10.2); Hemolysis Index 7
[2021-12-08 17:40] LABS: Bilirubin,Urine NEG (Negative); Blood,Urine MOD (Negative); Color,Urine Yellow (Yellow); Mucus,Urine FEW /HPF; Protein,Urine <15 mg/dL mg/dL (Negative); Urobilinogen,Urine < 2.0 mg/dL (<2.0)
[2021-12-08 17:45] LABS: HCG Qualitative,Urine Negative (Negative)
[2021-12-08 17:48] LABS: Amphetamine Screen,Urine Negative; Benzodiazepines Screen,Urine Negative; Cannabinoid Screen,Urine Negative; Cocaine Screen,Urine Negative; Methadone Screen,Urine Negative; Opiate Screen,Urine Negative
--- NOTE | 2021-12-08 18:43 | Emergency Department Report ---
ED General Adult HPI - General Chief complaint: Dyspnea/Respdistress Stated complaint: ARCADIO Time Seen by Provider: 12/08/21 14:52 Source: patient, EMS Mode of arrival: Stretcher Limitations: No Limitations - History of Present Illness Initial comments: SOB and arcadio , history of tashma no fever no chest pain not vaccinated againts covid, -: Gradual, days(s) Severity scale (0 -10): 0 Treatments Prior to Arrival: none - Related Data Home Medications Medication Instructions Recorded Confirmed Last Taken Mepolizumab [Nucala] 1 syr IJ QMONTH 05/09/20 09/08/21 09/08/21 Previous Rx's Medication Instructions Recorded Last Taken Type Albuterol Mdi (or & Nicu Only) 2 puff IH Q4H PRN 30 Days 07/09/20 03/25/21 22:00 Rx [ProAir HFA Inhaler] Budesonide/Formoterol Fumarate 10.2 gm IH BID #1 hfa.aer.ad 10/25/20 09/08/21 Rx [Symbicort 160-4.5 Mcg Inhaler] Fluticasone [Flonase] 2 puff PO DAILY 30 Days #1 bottle 10/25/20 09/08/21 Rx Fluticasone/Vilanterol [Breo 25 mcg IH DAILY #1 10/25/20 09/08/21 Rx Ellipta 200-25 Mcg INH] Montelukast [Singulair] 10 mg PO QPM #30 tablet 10/25/20 09/08/21 Rx Montelukast [Singulair] 1 mg PO QPM #30 03/09/21 09/08/21 16:57 Rx predniSONE [Deltasone] 50 mg PO QDAY #5 tab 09/08/21 Unknown Rx Albuterol Mdi (or & Nicu Only) 1 puff IH QID PRN #8.5 gram 12/08/21 Unknown Rx [ProAir HFA Inhaler] levoFLOXacin [Levaquin TAB] 500 mg PO QDAY #7 tablet 12/08/21 Unknown Rx methylPREDNISolone [Medrol 4MG 4 mg PO UNK #1 12/08/21 Unknown Rx DOSEPAK (21 tabs)] Allergies Allergy/AdvReac Type Severity Reaction Status Date / Time wheat Allergy Unknown Verified 09/08/21 16:43 ED Review of Systems ROS: Stated complaint: ARCADIO Other details as noted in HPI Constitutional: denies: chills, fever Eyes: denies: eye pain, eye discharge, vision change ENT: denies: ear pain, throat pain Respiratory: denies: cough, shortness of breath, wheezing Cardiovascular: denies: chest pain, palpitations Endocrine: no symptoms reported Gastrointestinal: denies: abdominal pain, nausea, diarrhea Genitourinary: denies: urgency, dysuria, discharge Musculoskeletal: denies: back pain, joint swelling, arthralgia Skin: denies: rash, lesions Neurological: denies: headache, weakness, paresthesias Psychiatric: denies: anxiety, depression Hematological/Lymphatic: denies: easy bleeding, easy bruising ED Past Medical Hx - Past Medical History Previous Medical History?: Yes Hx Hypertension: Yes Hx Asthma: Yes ( Intubated multiple times) Hx Tuberculosis: No Hx HIV: No Additional medical history: (5) previous intubations due to asthma complications - Surgical History Past Surgical History?: Yes Additional Surgical History: tubal ligation - Social History Smoking Status: Never Smoker - Medications Home Medications: Home Medications Medication Instructions Recorded Confirmed Last Taken Type Mepolizumab [Nucala] 1 syr IJ QMONTH 05/09/20 09/08/21 09/08/21 History Albuterol Mdi (or & Nicu Only) 2 puff IH Q4H PRN 30 Days 07/09/20 09/08/21 03/25/21 22:00 Rx [ProAir HFA Inhaler] Budesonide/Formoterol Fumarate 10.2 gm IH BID #1 hfa.aer.ad 10/25/20 09/08/21 09/08/21 Rx [Symbicort 160-4.5 Mcg Inhaler] Fluticasone [Flonase] 2 puff PO DAILY 30 Days #1 bottle 10/25/20 09/08/21 09/08/21 Rx Fluticasone/Vilanterol [Breo 25 mcg IH DAILY #1 10/25/20 09/08/21 09/08/21 Rx Ellipta 200-25 Mcg INH] Montelukast [Singulair] 10 mg PO QPM #30 tablet 10/25/20 09/08/21 09/08/21 Rx Montelukast [Singulair] 1 mg PO QPM #30 03/09/21 09/08/21 09/08/21 16:57 Rx predniSONE [Deltasone] 50 mg PO QDAY #5 tab 09/08/21 Unknown Rx Albuterol Mdi (or & Nicu Only) 1 puff IH QID PRN #8.5 gram 12/08/21 Unknown Rx [ProAir HFA Inhaler] levoFLOXacin [Levaquin TAB] 500 mg PO QDAY #7 tablet 12/08/21 Unknown Rx methylPREDNISolone [Medrol 4MG 4 mg PO UNK #1 12/08/21 Unknown Rx DOSEPAK (21 tabs)] ED Physical Exam - General Limitations: No Limitations General appearance: alert, in no apparent distress - Head Head exam: Present: atraumatic, normocephalic - Eye Eye exam: Present: normal appearance - ENT ENT exam: Present: mucous membranes moist - Neck Neck exam: Present: normal inspection - Respiratory Respiratory exam: Present: normal lung sounds bilaterally, wheezes, decreased breath sounds. Absent: respiratory distress - Cardiovascular Cardiovascular Exam: Present: regular rate, normal rhythm. Absent: systolic murmur, diastolic murmur, rubs, gallop - GI/Abdominal GI/Abdominal exam: Present: soft, normal bowel sounds - Extremities Exam Extremities exam: Present: normal inspection - Back Exam Back exam: Present: normal inspection - Neurological Exam Neurological exam: Present: alert, oriented X3 - Psychiatric Psychiatric exam: Present: normal affect, normal mood - Skin Skin exam: Present: warm, dry, intact, normal color. Absent: rash ED Course Vital Signs 12/08/21 12/08/21 12/08/21 14:22 14:28 15:13 Temperature 97.7 F Pulse Rate 128 H Pulse Rate [ 135 H Anterior] Respiratory 24 Rate Respiratory 35 H Rate [Anterior] Blood Pressure 180/94 154/74 [Right] O2 Sat by Pulse 99 Oximetry 12/08/21 18:08 Temperature Pulse Rate Pulse Rate [ 115 H Anterior] Respiratory Rate Respiratory 22 Rate [Anterior] Blood Pressure [Right] O2 Sat by Pulse Oximetry - Reevaluation(s) Reevaluation #1: 12/08/21 18:42 albuterol and atrovent given steriods and work up has been negative much imroved, vss o2 sat 100 on ra not in dsitress, was talking and texting on the phone ED Medical Decision Making - Lab Data Result diagrams: 12/08/21 15:22 12/08/21 15:22 Critical care attestation.: If time is entered above; I have spent that time in minutes in the direct care of this critically ill patient, excluding procedure time. ED Disposition Clinical Impression: Asthma exacerbation Disposition: HOME / SELF CARE / HOMELESS Is pt being admited?: No Does the pt Need Aspirin: No Condition: Stable Instructions: Asthma, Adult Referrals: PRIMARY CARE, [Primary Care Provider] - 3-5 Days
[2021-12-08 19:10] VITALS: BP 132/81
== END 2021-12-08 19:13 | disposition home or self-care (01) ==
LOC: ED 14:20
DX: J45.901 Unspecified asthma with (acute) exacerbation (principal); I10 Essential (primary) hypertension; Z98.890 Other specified postprocedural states; Z91.02 Food additives allergy status; Z79.899 Other long term (current) drug therapy
CPT/HCPCS: 36415; 71045; 80053; 80307; 81001; 81025; 82550; 82553; 83690; 83735; 83880; 84484; 85025; 85610; 94640; 94644; 96372; 96374; 99285; J2930; J3105; J7040; 96361

== ENCOUNTER 2022-01-25 15:06 | Inpatient (IN) | payer MEDICARE ==
[2022-01-25] MEDS ORDERED: LACTATED RINGERS 2,000 ML IV ONE (15:51)
[2022-01-25] MEDS ORDERED: METOCLOPRAMIDE 10 MG/2 ML INJ IV ONE (15:51)
--- NOTE | 2022-01-25 15:53 | Emergency Department Report ---
ED General Adult HPI - General Chief complaint: Nausea/Vomiting/Diarrhea Stated complaint: BLURRED VISION/BODY ACHE/VOMITING Time Seen by Provider: 01/25/22 15:51 Source: patient, RN notes reviewed Mode of arrival: Ambulatory Limitations: No Limitations - History of Present Illness Initial comments: The patient is a 51-year-old female, with a past medical history of body mass index 38.1, asthma, without a known diagnosis of diabetes that she is aware of, presenting to the ER today with a complaint of malaise, fatigue, polyuria, polydipsia, intractable nausea and vomiting. Symptoms present for the past week and a half. -: Gradual, days(s) Location: back Radiation: non-radiation Quality: aching Consistency: constant Improves with: none Worsens with: eating - Related Data Home Medications Medication Instructions Recorded Confirmed Last Taken Mepolizumab [Nucala] 1 syr IJ QMONTH 05/09/20 09/08/21 09/08/21 Previous Rx's Medication Instructions Recorded Last Taken Type Albuterol Mdi (or & Nicu Only) 2 puff IH Q4H PRN 30 Days 07/09/20 03/25/21 22:00 Rx [ProAir HFA Inhaler] Budesonide/Formoterol Fumarate 10.2 gm IH BID #1 hfa.aer.ad 10/25/20 09/08/21 Rx [Symbicort 160-4.5 Mcg Inhaler] Fluticasone [Flonase] 2 puff PO DAILY 30 Days #1 bottle 10/25/20 09/08/21 Rx Fluticasone/Vilanterol [Breo 25 mcg IH DAILY #1 10/25/20 09/08/21 Rx Ellipta 200-25 Mcg INH] Montelukast [Singulair] 10 mg PO QPM #30 tablet 10/25/20 09/08/21 Rx Montelukast [Singulair] 1 mg PO QPM #30 03/09/21 09/08/21 16:57 Rx predniSONE [Deltasone] 50 mg PO QDAY #5 tab 09/08/21 Unknown Rx Albuterol Mdi (or & Nicu Only) 1 puff IH QID PRN #8.5 gram 12/08/21 Unknown Rx [ProAir HFA Inhaler] levoFLOXacin [Levaquin TAB] 500 mg PO QDAY #7 tablet 12/08/21 Unknown Rx methylPREDNISolone [Medrol 4MG 4 mg PO UNK #1 12/08/21 Unknown Rx DOSEPAK (21 tabs)] Allergies Allergy/AdvReac Type Severity Reaction Status Date / Time wheat Allergy Unknown Verified 09/08/21 16:43 ED Review of Systems ROS: Stated complaint: BLURRED VISION/BODY ACHE/VOMITING Other details as noted in HPI Constitutional: malaise, weakness. denies: fever Eyes: denies: eye discharge ENT: denies: epistaxis Respiratory: shortness of breath. denies: cough Cardiovascular: denies: chest pain Gastrointestinal: nausea, vomiting. denies: abdominal pain Genitourinary: frequency. denies: dysuria Musculoskeletal: back pain Neurological: weakness ED Past Medical Hx - Past Medical History Hx Hypertension: Yes Hx Asthma: Yes ( Intubated multiple times) Hx Tuberculosis: No Hx HIV: No Additional medical history: (5) previous intubations due to asthma complications - Surgical History Additional Surgical History: tubal ligation - Social History Smoking Status: Never Smoker - Medications Home Medications: Home Medications Medication Instructions Recorded Confirmed Last Taken Type Mepolizumab [Nucala] 1 syr IJ QMONTH 05/09/20 09/08/21 09/08/21 History Albuterol Mdi (or & Nicu Only) 2 puff IH Q4H PRN 30 Days 07/09/20 09/08/21 03/25/21 22:00 Rx [ProAir HFA Inhaler] Budesonide/Formoterol Fumarate 10.2 gm IH BID #1 hfa.aer.ad 10/25/20 09/08/21 09/08/21 Rx [Symbicort 160-4.5 Mcg Inhaler] Fluticasone [Flonase] 2 puff PO DAILY 30 Days #1 bottle 10/25/20 09/08/21 09/08/21 Rx Fluticasone/Vilanterol [Breo 25 mcg IH DAILY #1 10/25/20 09/08/21 09/08/21 Rx Ellipta 200-25 Mcg INH] Montelukast [Singulair] 10 mg PO QPM #30 tablet 10/25/20 09/08/21 09/08/21 Rx Montelukast [Singulair] 1 mg PO QPM #30 03/09/21 09/08/21 09/08/21 16:57 Rx predniSONE [Deltasone] 50 mg PO QDAY #5 tab 09/08/21 Unknown Rx Albuterol Mdi (or & Nicu Only) 1 puff IH QID PRN #8.5 gram 12/08/21 Unknown Rx [ProAir HFA Inhaler] levoFLOXacin [Levaquin TAB] 500 mg PO QDAY #7 tablet 12/08/21 Unknown Rx methylPREDNISolone [Medrol 4MG 4 mg PO UNK #1 12/08/21 Unknown Rx DOSEPAK (21 tabs)] ED Physical Exam - General Limitations: Physical Limitation General appearance: alert, in no apparent distress, anxious, obese - Head Head exam: Present: atraumatic, normocephalic - Eye Eye exam: Present: normal appearance, EOMI. Absent: nystagmus - ENT ENT exam: Present: normal orophraynx, mucous membranes dry, normal external ear exam - Neck Neck exam: Present: normal inspection, full ROM. Absent: tenderness, meningismus - Respiratory Respiratory exam: Present: normal lung sounds bilaterally. Absent: respiratory distress, wheezes, rales, rhonchi, stridor, decreased breath sounds - Cardiovascular Cardiovascular Exam: Present: normal rhythm, tachycardia, normal heart sounds. Absent: bradycardia, irregular rhythm, systolic murmur, diastolic murmur, rubs, gallop - GI/Abdominal GI/Abdominal exam: Present: soft. Absent: distended, tenderness, guarding, rebound, rigid, pulsatile mass - Extremities Exam Extremities exam: Present: normal inspection, full ROM, other (2+ pulses noted in the bilateral upper and lower extremities. There is no palpable cord. negative Homans sign. Muscular compartments are soft. The pelvis is stable.). Absent: pedal edema, calf tenderness - Back Exam Back exam: Present: normal inspection. Absent: tenderness, CVA tenderness (R), CVA tenderness (L), paraspinal tenderness, vertebral tenderness - Neurological Exam Neurological exam: Present: alert, oriented X3, other (No facial droop. Tongue midline. Extraocular movements intact bilaterally. Facial sensation intact to light touch in V1, V2, V3 distribution bilaterally. 5 and a 5 strength in 4 extremities. Sensation intact to light touch in 4 extremities.). Absent: motor sensory deficit - Psychiatric Psychiatric exam: Present: anxious - Skin Skin exam: Present: warm, dry, intact, normal color. Absent: rash ED Course Vital Signs 01/25/22 01/25/22 01/25/22 15:20 16:04 16:15 Temperature 97.8 F Pulse Rate 123 H 115 H 115 H Respiratory 18 18 22 Rate Blood Pressure 149/92 158/80 Blood Pressure [Left] O2 Sat by Pulse 100 99 98 Oximetry O2 Sat by Pulse Oximetry [ Digit-Finger] 01/25/22 01/25/22 01/25/22 16:16 16:31 16:45 Temperature Pulse Rate 113 H 115 H Respiratory 20 21 Rate Blood Pressure 159/84 161/95 Blood Pressure [Left] O2 Sat by Pulse 100 99 99 Oximetry O2 Sat by Pulse Oximetry [ Digit-Finger] 01/25/22 01/25/22 01/25/22 17:01 17:15 17:31 Temperature Pulse Rate 113 H 116 H 115 H Respiratory 19 19 17 Rate Blood Pressure 165/76 165/76 146/122 Blood Pressure [Left] O2 Sat by Pulse 100 98 100 Oximetry O2 Sat by Pulse Oximetry [ Digit-Finger] 01/25/22 01/25/22 01/25/22 17:45 18:01 18:15 Temperature Pulse Rate 114 H 115 H 116 H Respiratory 18 18 24 Rate Blood Pressure 148/71 165/76 144/81 Blood Pressure [Left] O2 Sat by Pulse 99 100 99 Oximetry O2 Sat by Pulse Oximetry [ Digit-Finger] 01/25/22 01/25/22 01/25/22 18:23 18:31 18:45 Temperature Pulse Rate 117 H 119 H Respiratory 18 18 Rate Blood Pressure 168/80 131/72 Blood Pressure [Left] O2 Sat by Pulse 99 99 Oximetry O2 Sat by Pulse 99 Oximetry [ Digit-Finger] 01/25/22 01/25/22 01/25/22 19:01 19:15 19:31 Temperature Pulse Rate 118 H 117 H 129 H Respiratory 18 18 20 Rate Blood Pressure 141/75 162/70 149/75 Blood Pressure [Left] O2 Sat by Pulse 99 99 100 Oximetry O2 Sat by Pulse Oximetry [ Digit-Finger] 01/25/22 01/25/22 01/25/22 19:45 20:01 20:05 Temperature Pulse Rate 125 H 126 H 125 H Respiratory 20 19 17 Rate Blood Pressure 142/73 122/79 122/79 Blood Pressure [Left] O2 Sat by Pulse 100 100 99 Oximetry O2 Sat by Pulse Oximetry [ Digit-Finger] 01/25/22 01/25/22 01/25/22 20:11 20:21 20:31 Temperature Pulse Rate 126 H 126 H 122 H Respiratory 15 18 19 Rate Blood Pressure 143/80 143/80 132/75 Blood Pressure [Left] O2 Sat by Pulse 97 99 99 Oximetry O2 Sat by Pulse Oximetry [ Digit-Finger] 01/25/22 01/25/22 01/25/22 20:40 20:51 21:01 Temperature Pulse Rate 119 H 118 H 118 H Respiratory 18 22 19 Rate Blood Pressure 148/76 148/76 143/82 Blood Pressure [Left] O2 Sat by Pulse 97 99 99 Oximetry O2 Sat by Pulse Oximetry [ Digit-Finger] 01/25/22 01/25/22 01/25/22 21:10 21:21 21:31 Temperature Pulse Rate 117 H 115 H 115 H Respiratory 21 19 18 Rate Blood Pressure 132/80 132/80 127/83 Blood Pressure [Left] O2 Sat by Pulse 95 98 98 Oximetry O2 Sat by Pulse Oximetry [ Digit-Finger] 01/25/22 01/25/22 01/25/22 21:40 21:51 22:00 Temperature Pulse Rate 114 H 115 H 102 H Respiratory 18 20 Rate Blood Pressure 128/81 128/81 Blood Pressure [Left] O2 Sat by Pulse 97 98 Oximetry O2 Sat by Pulse Oximetry [ Digit-Finger] 01/25/22 22:18 Temperature 98.4 F Pulse Rate 126 H Respiratory 19 Rate Blood Pressure Blood Pressure 122/79 [Left] O2 Sat by Pulse 100 Oximetry O2 Sat by Pulse Oximetry [ Digit-Finger] - Reevaluation(s) Reevaluation #1: 01/25/22 15:56 Differential diagnosis, including but not limited to: Dehydration, diabetic ketoacidosis, electrolyte derangement, pneumonia, urinary tract infection Assessment and plan: 51-year-old female with dry mucous membranes, polyuria, polydipsia, lower back pain, nausea and vomiting, very suspicious for new onset diabetic ketoacidosis We will place patient on monitor technician. Obtain EKG, x-ray of the chest abdomen pelvis, treat symptoms, and reassess. Patient is awake, alert, oriented, sober, and exhibits decision-making capacity. She is not encephalopathic at this time. She is agreeable to the plan of care. Abdomen soft and benign, without rebound, guarding or peritoneal signs. No CVA tenderness. Denies dysuria. 01/25/22 18:10 Patient feels improved. X-ray negative. Laboratory studies consistent with diabetic ketoacidosis and renal insufficiency. DKA protocol ordered. Critical care physician has been consulted. Please reference consultative note. Hospital physician, Dr. Sarah Landry to admit to [facility] 01/25/22 18:23 Patient feeling improved. Leukocytosis is likely a stress reaction. Patient is agreeable to admission hospitalization. Hyperkalemia should improve with continuation of insulin therapy and IV fluids. - Consultations Consultation #1: 01/25/22 17:10 Laboratory studies are consistent with diabetic ketoacidosis. Contacted critical care physician, Dr. Jignesh Otoole I discussed the patient's history, laboratory studies and clinical impression. She will follow in consultation, and agrees with admission to the intensive care unit, for presumed diabetic ketoacidosis - Pulse Oximetry Interpretation Digit-Finger Initial Pulse Oximetry Readin O2 Sat by Pulse Oximetry: 99 Actions Taken: none ED Medical Decision Making - Lab Data Result diagrams: 01/25/22 16:04 01/26/22 04:17 Vital Signs 01/25/22 01/25/22 01/25/22 15:20 16:04 16:15 Temperature 97.8 F Pulse Rate 123 H 115 H 115 H Respiratory 18 18 22 Rate Blood Pressure 149/92 158/80 O2 Sat by Pulse 100 99 98 Oximetry 01/25/22 01/25/22 01/25/22 16:16 16:31 16:45 Temperature Pulse Rate 113 H 115 H Respiratory 20 21 Rate Blood Pressure 159/84 161/95 O2 Sat by Pulse 100 99 99 Oximetry Lab Results 01/25/22 01/25/22 01/25/22 Range/Units 16:04 16:04 16:04 WBC 15.4 H (4.5-11.0) K/mm3 RBC 5.79 H (3.65-5.03) M/mm3 Hgb 15.4 H (10.1-14.3) gm/dl Hct 54.1 H (30.3-42.9) % MCV 93 (79-97) fl MCH 27 L (28-32) pg MCHC 29 L (30-34) % RDW 15.8 H (13.2-15.2) % Plt Count 221 (140-440) K/mm3 Lymph % (Auto) 4.6 L (13.4-35.0) % [place] % (Auto) 7.6 H (0.0-7.3) % Eos % (Auto) 0.0 (0.0-4.3) % Baso % (Auto) 0.1 (0.0-1.8) % Lymph # (Auto) 0.7 L (1.2-5.4) K/mm3 [place] # (Auto) 1.2 H (0.0-0.8) K/mm3 Eos # (Auto) 0.0 (0.0-0.4) K/mm3 Baso # (Auto) 0.0 (0.0-0.1) K/mm3 Seg Neutrophils % 87.7 H (40.0-70.0) % Seg Neutrophils # 13.5 H (1.8-7.7) K/mm3 VBG pH 7.184 L* (7.320-7.420) POC Glucose (70-105) mg/dL Hemoglobin A1c 10.8 H (4-6) % /04/13 Range/Units 16:22 WBC (4.5-11.0) K/mm3 RBC (3.65-5.03) M/mm3 Hgb (10.1-14.3) gm/dl Hct (30.3-42.9) % MCV (79-97) fl MCH (28-32) pg MCHC (30-34) % RDW (13.2-15.2) % Plt Count (140-440) K/mm3 Lymph % (Auto) (13.4-35.0) % [place] % (Auto) (0.0-7.3) % Eos % (Auto) (0.0-4.3) % Baso % (Auto) (0.0-1.8) % Lymph # (Auto) (1.2-5.4) K/mm3 [place] # (Auto) (0.0-0.8) K/mm3 Eos # (Auto) (0.0-0.4) K/mm3 Baso # (Auto) (0.0-0.1) K/mm3 Seg Neutrophils % (40.0-70.0) % Seg Neutrophils # (1.8-7.7) K/mm3 VBG pH (7.320-7.420) POC Glucose > 600 H (70-105) mg/dL Hemoglobin A1c (4-6) % Lab Results 01/25/22 01/25/22 01/25/22 Range/Units 16:04 16:04 16:04 WBC 15.4 H (4.5-11.0) K/mm3 RBC 5.79 H (3.65-5.03) M/mm3 Hgb 15.4 H (10.1-14.3) gm/dl Hct 54.1 H (30.3-42.9) % MCV 93 (79-97) fl MCH 27 L (28-32) pg MCHC 29 L (30-34) % RDW 15.8 H (13.2-15.2) % Plt Count 221 (140-440) K/mm3 Lymph % (Auto) 4.6 L (13.4-35.0) % [place] % (Auto) 7.6 H (0.0-7.3) % Eos % (Auto) 0.0 (0.0-4.3) % Baso % (Auto) 0.1 (0.0-1.8) % Lymph # (Auto) 0.7 L (1.2-5.4) K/mm3 [place] # (Auto) 1.2 H (0.0-0.8) K/mm3 Eos # (Auto) 0.0 (0.0-0.4) K/mm3 Baso # (Auto) 0.0 (0.0-0.1) K/mm3 Seg Neutrophils % 87.7 H (40.0-70.0) % Seg Neutrophils # 13.5 H (1.8-7.7) K/mm3 VBG pH (7.320-7.420) Sodium 130 L (137-145) mmol/L Potassium 6.7 H* (3.6-5.0) mmol/L Chloride 87.5 L (98-107) mmol/L Carbon Dioxide 8 L* (22-30) mmol/L Anion Gap 41 mmol/L BUN 40 H (7-17) mg/dL Creatinine 1.8 H (0.6-1.2) mg/dL Estimated GFR 36 ml/min BUN/Creatinine Ratio 22 % Glucose 968 H* (65-100) mg/dL POC Glucose (70-105) mg/dL Hemoglobin A1c (4-6) % Calcium 10.8 H (8.4-10.2) mg/dL Magnesium (1.7-2.3) mg/dL Total Bilirubin 0.40 0.30 (0.1-1.2) mg/dL Direct Bilirubin < 0.2 (0-0.2) mg/dL Indirect Bilirubin 0.1 mg/dL AST 13 17 (5-40) units/L ALT 24 25 (7-56) units/L Alkaline Phosphatase 99 100 (35-129) units/L Total Creatine Kinase (30-135) units/L Troponin T < 0.010 (0.00-0.029) ng/mL Total Protein 8.0 8.5 H (6.3-8.2) g/dL Albumin 4.6 4.5 (3.9-5) g/dL Albumin/Globulin Ratio 1.4 1.1 % Lipase Cancelled TSH (0.270-4.200) mlU/mL 01/25/22 01/25/22 01/25/22 Range/Units 16:04 16:04 16:04 WBC (4.5-11.0) K/mm3 RBC (3.65-5.03) M/mm3 Hgb (10.1-14.3) gm/dl Hct (30.3-42.9) % MCV (79-97) fl MCH (28-32) pg MCHC (30-34) % RDW (13.2-15.2) % Plt Count (140-440) K/mm3 Lymph % (Auto) (13.4-35.0) % [place] % (Auto) (0.0-7.3) % Eos % (Auto) (0.0-4.3) % Baso % (Auto) (0.0-1.8) % Lymph # (Auto) (1.2-5.4) K/mm3 [place] # (Auto) (0.0-0.8) K/mm3 Eos # (Auto) (0.0-0.4) K/mm3 Baso # (Auto) (0.0-0.1) K/mm3 Seg Neutrophils % (40.0-70.0) % Seg Neutrophils # (1.8-7.7) K/mm3 VBG pH 7.184 L* (7.320-7.420) Sodium (137-145) mmol/L Potassium (3.6-5.0) mmol/L Chloride (98-107) mmol/L Carbon Dioxide (22-30) mmol/L Anion Gap mmol/L BUN (7-17) mg/dL Creatinine (0.6-1.2) mg/dL Estimated GFR ml/min BUN/Creatinine Ratio % Glucose (65-100) mg/dL POC Glucose (70-105) mg/dL Hemoglobin A1c 10.8 H (4-6) % Calcium (8.4-10.2) mg/dL Magnesium 3.10 H (1.7-2.3) mg/dL Total Bilirubin (0.1-1.2) mg/dL Direct Bilirubin (0-0.2) mg/dL Indirect Bilirubin mg/dL AST (5-40) units/L ALT (7-56) units/L Alkaline Phosphatase (35-129) units/L Total Creatine Kinase 274 H (30-135) units/L Troponin T (0.00-0.029) ng/mL Total Protein (6.3-8.2) g/dL Albumin (3.9-5) g/dL Albumin/Globulin Ratio % Lipase TSH (0.270-4.200) mlU/mL 01/25/22 01/25/22 Range/Units 16:04 16:22 WBC (4.5-11.0) K/mm3 RBC (3.65-5.03) M/mm3 Hgb (10.1-14.3) gm/dl Hct (30.3-42.9) % MCV (79-97) fl MCH (28-32) pg MCHC (30-34) % RDW (13.2-15.2) % Plt Count (140-440) K/mm3 Lymph % (Auto) (13.4-35.0) % [place] % (Auto) (0.0-7.3) % Eos % (Auto) (0.0-4.3) % Baso % (Auto) (0.0-1.8) % Lymph # (Auto) (1.2-5.4) K/mm3 [place] # (Auto) (0.0-0.8) K/mm3 Eos # (Auto) (0.0-0.4) K/mm3 Baso # (Auto) (0.0-0.1) K/mm3 Seg Neutrophils % (40.0-70.0) % Seg Neutrophils # (1.8-7.7) K/mm3 VBG pH (7.320-7.420) Sodium (137-145) mmol/L Potassium (3.6-5.0) mmol/L Chloride (98-107) mmol/L Carbon Dioxide (22-30) mmol/L Anion Gap mmol/L BUN (7-17) mg/dL Creatinine (0.6-1.2) mg/dL Estimated GFR ml/min BUN/Creatinine Ratio % Glucose (65-100) mg/dL POC Glucose > 600 H (70-105) mg/dL Hemoglobin A1c (4-6) % Calcium (8.4-10.2) mg/dL Magnesium (1.7-2.3) mg/dL Total Bilirubin (0.1-1.2) mg/dL Direct Bilirubin (0-0.2) mg/dL Indirect Bilirubin mg/dL AST (5-40) units/L ALT (7-56) units/L Alkaline Phosphatase (35-129) units/L Total Creatine Kinase (30-135) units/L Troponin T (0.00-0.029) ng/mL Total Protein (6.3-8.2) g/dL Albumin (3.9-5) g/dL Albumin/Globulin Ratio % Lipase TSH 0.516 (0.270-4.200) mlU/mL - EKG Data -: EKG Interpreted by Pa EKG shows normal: sinus rhythm Rate: tachycardia - EKG Data 01/25/22 17:11 The EKG is interpreted at 16: 59 Sinus rhythm, tachycardia, 114 bpm. Left axis deviation, borderline left anterior fascicular block, QTC 5 3 9 ms. Abnormal EKG. Not a STEMI - Radiology Data Radiology results: pending, report reviewed, image reviewed ABDOMEN 2 VIEW(S) with PA chest radiograph, 01/25/2022 INDICATION / CLINICAL INFORMATION: Nausea and vomiting. Lower back pain. COMPARISON: No relevant prior study is available for comparison. FINDINGS: TUBES / LINES: None. BOWEL GAS PATTERN: The bowel gas pattern appears nonobstructive. ADDITIONAL FINDINGS: The accompanying chest radiograph demonstrates no evidence of acute cardiopulmonary process. IMPRESSION: 1. No radiographic evidence of acute intra-abdominal process. Signer Name: Cori Day MD Signed: 01/25/2022 3:44 PM Workstation Name: [email or web address] Critical Care Time: Yes Critical care time in (mins) excluding proc time.: 35 Critical care attestation.: If time is entered above; I have spent that time in minutes in the direct care of this critically ill patient, excluding procedure time. ED Disposition Clinical Impression: Obesity (BMI 30-39.9), Renal insufficiency DKA (diabetic ketoacidosis) Qualifiers: Diabetes mellitus type: type 2 Disposition: 09 ADMITTED INPATIENT Is pt being admited?: Yes Does the pt Need Aspirin: No Condition: Serious
--- NOTE | 2022-01-25 16:49 | XRay Report ---
ABDOMEN 2 VIEW(S) with PA chest radiograph, 01/25/2022 INDICATION / CLINICAL INFORMATION: Nausea and vomiting. Lower back pain. COMPARISON: No relevant prior study is available for comparison. FINDINGS: TUBES / LINES: None. BOWEL GAS PATTERN: The bowel gas pattern appears nonobstructive. ADDITIONAL FINDINGS: The accompanying chest radiograph demonstrates no evidence of acute cardiopulmon bennett process. IMPRESSION: 1. No radiographic evidence of acute intra-abdominal process. Signer Name: Cori Day MD Signed: 01/25/2022 4:44 PM Workstation Name: [email or web address]
[2022-01-25 16:52] LABS: Basophils % (Auto) 0.1 % (0.0-1.8); Lymphocytes # (Auto) 0.7 K/mm3 (1.2-5.4); Lymphocytes % (Auto) 4.6 % (13.4-35.0); Mean Corpuscular HGB Conc 29 % (30-34); Mean Corpuscular Volume 93 fl (79-97); Monocytes # (Auto) 1.2 K/mm3 (0.0-0.8); Monocytes % (Auto) 7.6 % (0.0-7.3); Platelet Count 221 K/mm3 (140-440); Red Blood Count 5.79 M/mm3 (3.65-5.03); Red Cell Distribution Width 15.8 % (13.2-15.2)
[2022-01-25 16:53] LABS: Hematocrit 54.1 % (30.3-42.9); Hemoglobin 15.4 gm/dl (10.1-14.3)
[2022-01-25 17:25] LABS: Alanine Aminotransferase 25 units/L (7-56); Albumin 4.5 g/dL (3.9-5)
[2022-01-25 17:31] LABS: Bilirubin,Direct < 0.2 mg/dL (0-0.2)
[2022-01-25 18:00] LABS: Alanine Aminotransferase 24 units/L (7-56); Albumin 4.6 g/dL (3.9-5); BUN/Creatinine Ratio 22; Blood Urea Nitrogen 40 mg/dL (7-17); Calcium 10.8 mg/dL (8.4-10.2); Hemolysis Index 35
[2022-01-25] MEDS ORDERED: INSULIN REGULAR, HUMAN 100 UNITS/1 ML IV ONE (18:07)
[2022-01-25] MEDS ORDERED: DEXTROSE 50% IN WATER (25GM) 50 ML SYRINGE IV PRN (18:07)
[2022-01-25] MEDS: INSULIN REGULAR, HUMAN 100 UNITS in SODIUM CHLORIDE 0.9% 99 ML IV SCH (19:19)
[2022-01-25] MEDS ORDERED: MORPHINE 2 MG/1 ML INJ IV PRN (19:41)
[2022-01-25] MEDS ORDERED: ONDANSETRON 4 MG/2 ML INJ IV PRN (19:41)
[2022-01-25] MEDS ORDERED: ACETAMINOPHEN 325 MG TAB PO PRN (19:41)
[2022-01-25] MEDS ORDERED: DEXTROSE 10% *Hypoglycemia IV PRN (20:00)
[2022-01-25 20:03] LABS: Calcium 10.2 mg/dL (8.4-10.2)
--- NOTE | 2022-01-25 20:04 | History and Physical Report ---
History of Present Illness Date of examination: 01/25/22 Date of admission: 01/25/2022 Chief complaint: Persistent nausea and vomiting History of present illness: 51-year-old -[place] female with history of asthma, comes in for severe malaise, fatigue, polyuria polydipsia and intractable nausea and vomiting. Symptoms are present for the past 1 week. In the emergency room patient blood glucose was very high in the range of 690. Patient being admitted for DKA. Patient continues to have nausea and vomiting. No fever or chills. No prior history of diabetes as per the patient. No. Exposure to Covid. Vaccinated against COVID. - Past Medical History --Asthma: Yes ( Intubated multiple times) Additional medical history: (5) previous intubations due to asthma complications - Surgical History Additional Surgical History: tubal ligation -Family history --Htn - Social History --Smoking Status: Never Smoker - Medications --Home Medications: Home Medications Medication Instructions Recorded Confirmed Last Taken Type Mepolizumab [Nucala] 1 syr IJ QMONTH 05/09/20 09/08/21 09/08/21 History Albuterol Mdi (or & Nicu Only) 2 puff IH Q4H PRN 30 Days 07/09/20 09/08/21 03/25/21 22:00 Rx [ProAir HFA Inhaler] Budesonide/Formoterol Fumarate 10.2 gm IH BID #1 hfa.aer.ad 10/25/20 09/08/21 09/08/21 Rx [Symbicort 160-4.5 Mcg Inhaler] Fluticasone [Flonase] 2 puff PO DAILY 30 Days #1 bottle 10/25/20 09/08/21 09/08/21 Rx Fluticasone/Vilanterol [Breo 25 mcg IH DAILY #1 10/25/20 09/08/21 09/08/21 Rx Ellipta 200-25 Mcg INH] Montelukast [Singulair] 10 mg PO QPM #30 tablet 10/25/20 09/08/21 09/08/21 Rx Montelukast [Singulair] 1 mg PO QPM #30 03/09/21 09/08/21 09/08/21 16:57 Rx predniSONE [Deltasone] 50 mg PO QDAY #5 tab 09/08/21 Unknown Rx Albuterol Mdi (or & Nicu Only) 1 puff IH QID PRN #8.5 gram 12/08/21 Unknown Rx [ProAir HFA Inhaler] levoFLOXacin [Levaquin TAB] 500 mg PO QDAY #7 tablet 12/08/21 Unknown Rx methylPREDNISolone [Medrol 4MG 4 mg PO UNK #1 12/08/21 Unknown Rx DOSEPAK (21 tabs)] Review of Systems ROS: Stated complaint: BLURRED VISION/BODY ACHE/VOMITING Other details as noted in HPI Constitutional: malaise, weakness. denies: fever Eyes: denies: eye discharge ENT: denies: epistaxis Respiratory: shortness of breath. denies: cough Cardiovascular: denies: chest pain Gastrointestinal: nausea, vomiting. denies: abdominal pain Genitourinary: frequency. denies: dysuria Musculoskeletal: back pain Neurological: weakness Medications and Allergies Allergies Allergy/AdvReac Type Severity Reaction Status Date / Time wheat Allergy Unknown Verified 09/08/21 16:43 Home Medications Medication Instructions Recorded Confirmed Last Taken Type Mepolizumab [Nucala] 1 syr IJ QMONTH 05/09/20 09/08/21 09/08/21 History Albuterol Mdi (or & Nicu Only) 2 puff IH Q4H PRN 30 Days 07/09/20 09/08/21 03/25/21 22:00 Rx [ProAir HFA Inhaler] Budesonide/Formoterol Fumarate 10.2 gm IH BID #1 hfa.aer.ad 10/25/20 09/08/21 09/08/21 Rx [Symbicort 160-4.5 Mcg Inhaler] Fluticasone [Flonase] 2 puff PO DAILY 30 Days #1 bottle 10/25/20 09/08/21 09/08/21 Rx Fluticasone/Vilanterol [Breo 25 mcg IH DAILY #1 10/25/20 09/08/21 09/08/21 Rx Ellipta 200-25 Mcg INH] Montelukast [Singulair] 10 mg PO QPM #30 tablet 10/25/20 09/08/21 09/08/21 Rx Montelukast [Singulair] 1 mg PO QPM #30 03/09/21 09/08/21 09/08/21 16:57 Rx predniSONE [Deltasone] 50 mg PO QDAY #5 tab 09/08/21 Unknown Rx Albuterol Mdi (or & Nicu Only) 1 puff IH QID PRN #8.5 gram 12/08/21 Unknown Rx [ProAir HFA Inhaler] levoFLOXacin [Levaquin TAB] 500 mg PO QDAY #7 tablet 12/08/21 Unknown Rx methylPREDNISolone [Medrol 4MG 4 mg PO UNK #1 12/08/21 Unknown Rx DOSEPAK (21 tabs)] Active Meds: Active Medications Dextrose (Dextrose 10% *Hypoglycemia) 0 ml IV Q30MIN PRN; Protocol PRN Reason: Hypoglycemia Insulin Human Regular 100 (units/ Sodium Chloride) 100 mls @ 1 mls/hr IV TITR JOSE D; Protocol Last Admin: 01/25/22 19:19 Dose: 1 units/hr, 1 mls/hr Potassium Chloride/Dextrose/Sod Cl (D5w/0.45% Nacl/Kcl 20 Meq) 20 meq in 1,000 mls @ 125 mls/hr IV DIRECT JOSE D Sodium Chloride (Sodium Chloride 0.9% 10 Ml Flush Syringe) 10 ml IV PRN NR Stop: 01/26/22 18:59 Exam - Constitutional Vitals: Temp Pulse Resp BP Pulse Ox 97.8 F 115 H 17 146/122 99 01/25/22 15:20 01/25/22 17:31 01/25/22 17:31 01/25/22 17:31 01/25/22 18:23 General appearance: Present: no acute distress, well-nourished - EENT Eyes: Present: PERRL ENT: hearing intact, clear oral mucosa, other (Mucous membranes dry) - Neck Neck: Present: supple, normal ROM - Respiratory Respiratory effort: normal Respiratory: bilateral: CTA - Cardiovascular Heart rate: 78 Rhythm: regular Heart Sounds: Present: S1 & S2. Absent: rub, click - Extremities Extremities: pulses symmetrical, No edema Peripheral Pulses: within normal limits - Abdominal General gastrointestinal: Present: soft, non-tender, non-distended, normal bowel sounds Female genitourinary: Present: normal - Integumentary Integumentary: Present: clear, warm, dry - Musculoskeletal Musculoskeletal: gait normal, strength equal bilaterally - Psychiatric Psychiatric: appropriate mood/affect, intact judgment & insight - Neurologic Neurologic: CNII-XII intact, moves all extremities HEART Score - HEART Score Troponin: Troponin T < 0.010 ng/mL (0.00-0.029) 01/25/22 16:04 Results - Labs CBC & Chem 7: 01/25/22 16:04 01/26/22 04:17 Labs: Laboratory Last Values WBC 15.4 K/mm3 (4.5-11.0) H 01/25/22 16:04 RBC 5.79 M/mm3 (3.65-5.03) H 01/25/22 16:04 Hgb 15.4 gm/dl (10.1-14.3) H 01/25/22 16:04 Hct 54.1 % (30.3-42.9) H 01/25/22 16:04 MCV 93 fl (79-97) 01/25/22 16:04 MCH 27 pg (28-32) L 01/25/22 16:04 MCHC 29 % (30-34) L 01/25/22 16:04 RDW 15.8 % (13.2-15.2) H 01/25/22 16:04 Plt Count 221 K/mm3 (140-440) 01/25/22 16:04 Lymph % (Auto) 4.6 % (13.4-35.0) L 01/25/22 16:04 [place] % (Auto) 7.6 % (0.0-7.3) H 01/25/22 16:04 Eos % (Auto) 0.0 % (0.0-4.3) 01/25/22 16:04 Baso % (Auto) 0.1 % (0.0-1.8) 01/25/22 16:04 Lymph # (Auto) 0.7 K/mm3 (1.2-5.4) L 01/25/22 16:04 [place] # (Auto) 1.2 K/mm3 (0.0-0.8) H 01/25/22 16:04 Eos # (Auto) 0.0 K/mm3 (0.0-0.4) 01/25/22 16:04 Baso # (Auto) 0.0 K/mm3 (0.0-0.1) 01/25/22 16:04 Seg Neutrophils % 87.7 % (40.0-70.0) H 01/25/22 16:04 Seg Neutrophils # 13.5 K/mm3 (1.8-7.7) H 01/25/22 16:04 VBG pH 7.184 (7.320-7.420) L* 01/25/22 16:04 Sodium 130 mmol/L (137-145) L 01/25/22 16:04 Potassium 6.7 mmol/L (3.6-5.0) H* 01/25/22 16:04 Chloride 87.5 mmol/L (98-107) L 01/25/22 16:04 Carbon Dioxide 8 mmol/L (22-30) L* 01/25/22 16:04 Anion Gap 41 mmol/L 01/25/22 16:04 BUN 40 mg/dL (7-17) H 01/25/22 16:04 Creatinine 1.8 mg/dL (0.6-1.2) H 01/25/22 16:04 Estimated GFR 36 ml/min 01/25/22 16:04 BUN/Creatinine Ratio 22 % 01/25/22 16:04 Glucose 968 mg/dL (65-100) H* 01/25/22 16:04 POC Glucose > 600 mg/dL (70-105) H 01/25/22 16:22 Hemoglobin A1c 10.8 % (4-6) H 01/25/22 16:04 Calcium 10.8 mg/dL (8.4-10.2) H 01/25/22 16:04 Magnesium 3.10 mg/dL (1.7-2.3) H 01/25/22 16:04 Total Bilirubin 0.30 mg/dL (0.1-1.2) 01/25/22 16:04 Total Bilirubin 0.40 mg/dL (0.1-1.2) 01/25/22 16:04 Direct Bilirubin < 0.2 mg/dL (0-0.2) 01/25/22 16:04 Indirect Bilirubin 0.1 mg/dL 01/25/22 16:04 AST 13 units/L (5-40) 01/25/22 16:04 AST 17 units/L (5-40) 01/25/22 16:04 ALT 24 units/L (7-56) 01/25/22 16:04 ALT 25 units/L (7-56) 01/25/22 16:04 Alkaline Phosphatase 99 units/L (35-129) 01/25/22 16:04 Alkaline Phosphatase 100 units/L (35-129) 01/25/22 16:04 Total Creatine Kinase 274 units/L (30-135) H 01/25/22 16:04 Troponin T < 0.010 ng/mL (0.00-0.029) 01/25/22 16:04 Total Protein 8.0 g/dL (6.3-8.2) 01/25/22 16:04 Total Protein 8.5 g/dL (6.3-8.2) H 01/25/22 16:04 Albumin 4.5 g/dL (3.9-5) 01/25/22 16:04 Albumin 4.6 g/dL (3.9-5) 01/25/22 16:04 Albumin/Globulin Ratio 1.1 % 01/25/22 16:04 Albumin/Globulin Ratio 1.4 % 01/25/22 16:04 Lipase Cancelled 01/25/22 16:04 TSH 0.516 mlU/mL (0.270-4.200) 01/25/22 16:04 Short CBC 01/25/22 Range/Units 16:04 WBC 15.4 H (4.5-11.0) K/mm3 Hgb 15.4 H (10.1-14.3) gm/dl Hct 54.1 H (30.3-42.9) % Plt Count 221 (140-440) K/mm3 BMP 01/25/22 01/25/22 01/25/22 16:04 19:27 21:13 Sodium 130 L 140 D 147 H Potassium 6.7 H* 4.5 D 3.7 Chloride 87.5 L 103.8 112.8 H Carbon Dioxide 8 L* 6 L* 7 L* BUN 40 H 36 H 38 H Creatinine 1.8 H 1.6 H 1.7 H Glucose 968 H* 690 H* 281 H Calcium 10.8 H 10.2 10.9 H 01/26/22 01/26/22 00:51 04:17 Sodium 145 149 H Potassium 4.1 4.1 Chloride 112.5 H 116.9 H Carbon Dioxide 10 L 14 L BUN 37 H 35 H Creatinine 1.6 H 1.5 H Glucose 249 H 208 H Calcium 10.4 H 10.3 H Cardiac Enzymes 01/25/22 01/25/22 Range/Units 16:04 16:04 Total Creatine Kinase 274 H (30-135) units/L Troponin T < 0.010 (0.00-0.029) ng/mL Liver Function 01/25/22 01/25/22 Range/Units 16:04 16:04 Total Bilirubin 0.40 0.30 (0.1-1.2) mg/dL Direct Bilirubin < 0.2 (0-0.2) mg/dL AST 13 17 (5-40) units/L ALT 24 25 (7-56) units/L Alkaline Phosphatase 99 100 (35-129) units/L Albumin 4.6 4.5 (3.9-5) g/dL Urine 01/25/22 Range/Units 02:16 Urine Color Straw (Yellow) Urine pH 5.0 (5.0-7.0) Ur Specific [place] 1.029 (1.003-1.030) Urine Protein 30 mg/dl (Negative) mg/dL Urine Glucose (UA) >=500 (Negative) mg/dL - Imaging and Cardiology Imaging and Cardiology: Chest x-ray No acute findings Assessment and Plan Assessment and plan: Critical care statement The high probability OF a clinically significant sudden or life-threatening deterioration of the cardiorespiratory system and endocrine system required my full and direct attention, intervention and postoperative management. The aggregate critical care time was 40 minutes. The time is in addition to time spent performing reported procedures but includes the followin: Data review and interpretation 2: Patient assessment and monitoring of vital signs 3: Documentation 4:: Medication orders and management Advance Directives: Yes (Full code) VTE prophylaxis?: Chemical Plan of care discussed with patient/family: Yes - Patient Problems (1) DKA (diabetic ketoacidosis) Current Visit: Yes Status: Acute Qualifiers: Diabetes mellitus type: type 2 Plan to address problem: New onset diabetes Blood glucose levels of 690 A1c of 10.2 DKA protocol IV insulin IV fluids Frequent monitoring of blood glucose levels Diabetes education Patient to be discharged on long-acting and short-acting insulin (2) Polycythemia due to fall in plasma volume Current Visit: Yes Status: Acute Plan to address problem: IV fluids for now (3) Metabolic acidosis Current Visit: Yes Status: Acute Plan to address problem: Large anion gap of 36 Bicarb is on Lasix IV bicarb if necessary Correct glucose levels (4) LATONYA (acute kidney injury) Current Visit: Yes Status: Acute Plan to address problem: Volume depletion and vasomotor nephropathy IV fluids for now (5) Acute gastritis Current Visit: Yes Status: Acute Plan to address problem: Secondary to DKA IV Reglan and IV Zofran IV famotidine (6) Urinary tract infection Current Visit: Yes Status: Acute Qualifiers: Urinary tract infection type: acute cystitis Plan to address problem: Patient started on IV ceftriaxone pending urine cultures (7) DVT prophylaxis Current Visit: Yes Status: Acute Plan to address problem: On anticoagulation GI prophylaxis (8) Advance care planning Current Visit: Yes Status: Acute Plan to address problem: Disease education conducted, care plan discussed, diagnosis discussed, prognosis discussed. Patient is full code. Patient acknowledges understanding and agreement with care plan. +30 minutes.
[2022-01-25 22:09] LABS: Calcium 10.9 mg/dL (8.4-10.2)
[2022-01-25] MEDS: D5W/0.45% NACL/KCL 20 MEQ 20 MEQ/1,000 ML BAG IV SCH (22:42)
[2022-01-25] MEDS: HEPARIN 5,000 UNIT/1 ML VIAL SUB-Q SCH (23:25)
[2022-01-26 02:46] LABS: Calcium 10.4 mg/dL (8.4-10.2)
[2022-01-26 03:37] LABS: Bacteria,Urine 1+ /HPF (Negative); Bilirubin,Urine NEG (Negative); Blood,Urine MOD (Negative); Color,Urine Straw (Yellow); Mucus,Urine FEW /HPF; Urobilinogen,Urine < 2.0 mg/dL (<2.0)
[2022-01-26 05:40] LABS: Calcium 10.3 mg/dL (8.4-10.2)
[2022-01-26] MEDS: D5W/0.45% NACL/KCL 20 MEQ 20 MEQ/1,000 ML BAG IV SCH ×2 (06:47→14:23)
--- NOTE | 2022-01-26 06:50 | Consultation ---
History of Present Illness Consult date: 01/26/22 Requesting physician: FENG NAVARRETE Reason for consult: other (DKA) Medications and Allergies Allergies Allergy/AdvReac Type Severity Reaction Status Date / Time wheat Allergy Unknown Verified 09/08/21 16:43 Home Medications Medication Instructions Recorded Confirmed Last Taken Type Mepolizumab [Nucala] 1 syr IJ QMONTH 05/09/20 09/08/21 09/08/21 History Albuterol Mdi (or & Nicu Only) 2 puff IH Q4H PRN 30 Days 07/09/20 09/08/21 03/25/21 22:00 Rx [ProAir HFA Inhaler] Budesonide/Formoterol Fumarate 10.2 gm IH BID #1 hfa.aer.ad 10/25/20 09/08/21 09/08/21 Rx [Symbicort 160-4.5 Mcg Inhaler] Fluticasone [Flonase] 2 puff PO DAILY 30 Days #1 bottle 10/25/20 09/08/21 09/08/21 Rx Fluticasone/Vilanterol [Breo 25 mcg IH DAILY #1 10/25/20 09/08/21 09/08/21 Rx Ellipta 200-25 Mcg INH] Montelukast [Singulair] 10 mg PO QPM #30 tablet 10/25/20 09/08/21 09/08/21 Rx Montelukast [Singulair] 1 mg PO QPM #30 03/09/21 09/08/21 09/08/21 16:57 Rx predniSONE [Deltasone] 50 mg PO QDAY #5 tab 09/08/21 Unknown Rx Albuterol Mdi (or & Nicu Only) 1 puff IH QID PRN #8.5 gram 12/08/21 Unknown Rx [ProAir HFA Inhaler] levoFLOXacin [Levaquin TAB] 500 mg PO QDAY #7 tablet 12/08/21 Unknown Rx methylPREDNISolone [Medrol 4MG 4 mg PO UNK #1 12/08/21 Unknown Rx DOSEPAK (21 tabs)] Active Meds: Active Medications Acetaminophen (Acetaminophen 325 Mg Tab) 650 mg PO Q4H PRN PRN Reason: Pain MILD(1-3)/Fever >100.5/BOOKER Dextrose (Dextrose 10% *Hypoglycemia) 0 ml IV Q30MIN PRN; Protocol PRN Reason: Hypoglycemia Heparin Sodium (Porcine) (Heparin 5,000 Unit/1 Ml Vial) 5,000 unit SUB-Q Q12HR [facility] Last Admin: 01/25/22 23:25 Dose: 5,000 unit Insulin Human Regular 100 (units/ Sodium Chloride) 100 mls @ 1 mls/hr IV TITR JOSE D; Protocol Last Titration: 01/26/22 06:03 Dose: 3 units/hr, 3 mls/hr Potassium Chloride/Dextrose/Sod Cl (D5w/0.45% Nacl/Kcl 20 Meq) 20 meq in 1,000 mls @ 125 mls/hr IV DIRECT JOSE D Last Admin: 01/26/22 06:47 Dose: 125 mls/hr Morphine Sulfate (Morphine 2 Mg/1 Ml Inj) 2 mg IV Q4H PRN PRN Reason: Pain, Moderate (4-6) Ondansetron HCl (Ondansetron 4 Mg/2 Ml Inj) 4 mg IV Q8H PRN PRN Reason: Nausea And Vomiting Sodium Chloride (Sodium Chloride 0.9% 10 Ml Flush Syringe) 10 ml IV BID [facility] Last Admin: 01/25/22 23:26 Dose: 10 ml Sodium Chloride (Sodium Chloride 0.9% 10 Ml Flush Syringe) 10 ml IV PRN PRN PRN Reason: LINE FLUSH Physical Examination Vital signs: Vital Signs Temp Pulse Resp BP Pulse Ox 97.8 F 123 H 18 149/92 100 01/25/22 15:20 01/25/22 15:20 01/25/22 15:20 01/25/22 15:20 01/25/22 15:20 Results - Laboratory Findings CBC and BMP: 01/25/22 16:04 01/26/22 04:17 Abnormal lab findings: Abnormal Labs 01/25/22 01/25/22 01/25/22 02:16 16:04 16:04 WBC 15.4 H RBC 5.79 H Hgb 15.4 H Hct 54.1 H MCH 27 L MCHC 29 L RDW 15.8 H Lymph % (Auto) 4.6 L Emanuel % (Auto) 7.6 H Lymph # (Auto) 0.7 L Emanuel # (Auto) 1.2 H Seg Neutrophils % 87.7 H Seg Neutrophils # 13.5 H VBG pH Sodium 130 L Potassium 6.7 H* Chloride 87.5 L Carbon Dioxide 8 L* BUN 40 H Creatinine 1.8 H Glucose 968 H* POC Glucose Hemoglobin A1c Calcium 10.8 H Magnesium Total Creatine Kinase Total Protein Urine WBC (Auto) 47.0 H 01/25/22 01/25/22 01/25/22 16:04 16:04 16:04 WBC RBC Hgb Hct MCH MCHC RDW Lymph % (Auto) Emanuel % (Auto) Lymph # (Auto) Emanuel # (Auto) Seg Neutrophils % Seg Neutrophils # VBG pH Sodium Potassium Chloride Carbon Dioxide BUN Creatinine Glucose POC Glucose Hemoglobin A1c 10.8 H Calcium Magnesium 3.10 H Total Creatine Kinase 274 H Total Protein 8.5 H Urine WBC (Auto) 01/25/22 01/25/22 01/25/22 16:04 16:22 19:27 WBC RBC Hgb Hct MCH MCHC RDW Lymph % (Auto) Emanuel % (Auto) Lymph # (Auto) Emanuel # (Auto) Seg Neutrophils % Seg Neutrophils # VBG pH 7.184 L* Sodium Potassium Chloride Carbon Dioxide 6 L* BUN 36 H Creatinine 1.6 H Glucose 690 H* POC Glucose > 600 H Hemoglobin A1c Calcium Magnesium Total Creatine Kinase Total Protein Urine WBC (Auto) 01/25/22 01/25/22 01/25/22 21:13 22:27 22:29 WBC RBC Hgb Hct MCH MCHC RDW Lymph % (Auto) Emanuel % (Auto) Lymph # (Auto) Emanuel # (Auto) Seg Neutrophils % Seg Neutrophils # VBG pH Sodium 147 H Potassium Chloride 112.8 H Carbon Dioxide 7 L* BUN 38 H Creatinine 1.7 H Glucose 281 H POC Glucose 210 H 208 H Hemoglobin A1c Calcium 10.9 H Magnesium Total Creatine Kinase Total Protein Urine WBC (Auto) 01/25/22 01/26/22 01/26/22 23:21 00:13 00:51 WBC RBC Hgb Hct MCH MCHC RDW Lymph % (Auto) Emanuel % (Auto) Lymph # (Auto) Emanuel # (Auto) Seg Neutrophils % Seg Neutrophils # VBG pH Sodium Potassium Chloride 112.5 H Carbon Dioxide 10 L BUN 37 H Creatinine 1.6 H Glucose 249 H POC Glucose 251 H 273 H Hemoglobin A1c Calcium 10.4 H Magnesium Total Creatine Kinase Total Protein Urine WBC (Auto) 01/26/22 01/26/22 01/26/22 01:06 02:04 03:02 WBC RBC Hgb Hct MCH MCHC RDW Lymph % (Auto) Emanuel % (Auto) Lymph # (Auto) Emanuel # (Auto) Seg Neutrophils % Seg Neutrophils # VBG pH Sodium Potassium Chloride Carbon Dioxide BUN Creatinine Glucose POC Glucose 213 H 209 H 208 H Hemoglobin A1c Calcium Magnesium Total Creatine Kinase Total Protein Urine WBC (Auto) 01/26/22 01/26/22 01/26/22 04:13 04:17 05:12 WBC RBC Hgb Hct MCH MCHC RDW Lymph % (Auto) Emanuel % (Auto) Lymph # (Auto) Emanuel # (Auto) Seg Neutrophils % Seg Neutrophils # VBG pH Sodium 149 H Potassium Chloride 116.9 H Carbon Dioxide 14 L BUN 35 H Creatinine 1.5 H Glucose 208 H POC Glucose 220 H 174 H Hemoglobin A1c Calcium 10.3 H Magnesium Total Creatine Kinase Total Protein Urine WBC (Auto) 01/26/22 06:01 WBC RBC Hgb Hct MCH MCHC RDW Lymph % (Auto) Emanuel % (Auto) Lymph # (Auto) Emanuel # (Auto) Seg Neutrophils % Seg Neutrophils # VBG pH Sodium Potassium Chloride Carbon Dioxide BUN Creatinine Glucose POC Glucose 141 H Hemoglobin A1c Calcium Magnesium Total Creatine Kinase Total Protein Urine WBC (Auto)
[2022-01-26] MEDS ORDERED: LACTATED RINGERS 1,000 ML IV ONE ×3 (08:08→14:30)
[2022-01-26] MEDS: HEPARIN 5,000 UNIT/1 ML VIAL SUB-Q SCH ×2 (09:45→21:35)
[2022-01-26] MEDS: FAMOTIDINE 10 MG TAB PO SCH ×2 (09:45→21:36)
[2022-01-26] MEDS ORDERED: cefTRIAXone/NS 2 GM/100 ML 2 GM/100 ML BAG IV SCH (10:00)
[2022-01-26] MEDS ORDERED: IPRATROPIUM/ALBUTEROL SULFATE 3 ML AMPUL.NEB IH PRN (10:11)
--- NOTE | 2022-01-26 11:53 | Electrocardiograph Report ---
[facility] Test Date: 2022-01-25 Test Time: 16:59:04 Pat Name: RONY SHARPE Department: Room: A260 1 Gender: F Litigation Manager: NUNO FERGUSONB: 1970 Requested By: YESIKA BENSON Order Number: [id number] Reading MD: Raphael Almeida Measurements Intervals [place] Rate: 114 P: 62 OK: 105 QRS: -4 QRSD: 94 T: 33 QT: 392 QTc: 539 Interpretive Statements Sinus tachycardia Prolonged QT interval Compared to ECG 08/16/2021 14:17:51 ST (T wave) deviation now present Prolonged QT interval now present Sinus rhythm no longer present Myocardial infarct finding no longer present Electronically Signed On 01-26-2022 11:53:12 EST by Raphael Almeida
--- NOTE | 2022-01-26 13:00 | Progress Note ---
<AZUCENA MEHTA - Last Filed: 01/26/22 16:22> Assessment and Plan Assessment and plan: This is a 51-year-old AA female with known past medical history of asthma admitted for DKA, new onset diabetes. Hospital Course to Date: 01/26: Remains on insulin gtt per DKA protocol, gap is still 22 this am. Additonal IVF bolus administered, continue insulin and IVF resuscitation therapy until gap is close then transitioned to SubQ insulin. Thorough discussion with bedside in regards to current condition and plan of care. She voiced extensive family history of diabetes and understand the information provided. Nursing staffs to provided further education/resources, nutrition also consulted for additional education. Assessment and Plan #DKA (Diabetic Ketoacidosis) - New onset diabetes - [id number] - Anion gap is still 22 this am - Additional IVF bolus given - Continue insulin gtt per DKA protocol - Continue IV fluid resuscitation therapy - Continue to monitor anion gap and electrolytes, replacement as needed - Serial BMP, mg, and Phosp - Diabetic education/resources provided - Nutrition consulted #Acute Kidney Injury(LATONYA) Vasomotor Nephropathy #Hypernatremia - Most likely related to DKA/volume depletion - Renal function improved post IV hydration - Continue IV fluid resuscitation therapy per DKA protocol - Strict intake and output - Avoid nephrotoxic medications; Renally dose medications - Monitor and replace electrolytes as needed - Serial BMP,Mag,phosp #Acute Metabolic Encephalopathy - most likely due to DKA - confusion resolved this am - Continue DKA protocol #Metabolic acidosis 2/2 DKA - Continue DKA protocol - IV fluid resuscitation therapy - Serial labs ordered #Leukocytosis #Urinary Tract Infection(UTI) - most likely due to metabolic acidosis - Repeat CBC pending - UA with some pyuria, urine culture pending - Continue IV ceftriaxone for now X3days - Continue to F/U on culture data #Nausea/Vomiting - most likely due to DKA - Resolved this am - PRN antiemetic for N/V - PPI- Pepcid added #GI/DVT Prophylaxis - PPI- Pepcid - Continue AC- Hep SubQ - SCDs to bilateral lower extremities while in bed The high probability of a clinically significant, sudden or life threatening deterioration of the [multiple] system(s) required my full and direct attention, intervention and personal management. The aggregate critical care time was [60] minutes. This time is in addition to time spent performing reported procedures but includes the following: [x] Data Review and interpretation [x] Patient assessment and monitoring of vital signs [x] Documentation [x] Medication orders and management Disposition Plan: ICU Total Time Spent with Patient (Minutes): 60 History Interval history: Patient seen and examined at the bedside. Fully AAO and on RA. Patient voiced that he feels a lot better this morning, nausea and vomiting resolved. Patient remains on insulin gtt per DKA protocol. Periods of confusion overnight. Hospitalist Physical - Constitutional Vitals: Temp Pulse Resp BP Pulse Ox 98.2 F 107 H 13 140/92 99 01/26/22 11:58 01/26/22 08:49 01/26/22 08:01 01/26/22 08:01 01/26/22 12:38 General appearance: Present: no acute distress, well-nourished, obese - EENT Eyes: Present: PERRL, EOM intact ENT: hearing intact - Neck Neck: Present: normal ROM - Respiratory Respiratory effort: normal Respiratory: bilateral: diminished - Cardiovascular Rhythm: regular Heart Sounds: Present: S1 & S2 - Extremities Extremities: no ischemia, pulses intact, pulses symmetrical Extremity abnormal: edema - Peripheral Assessment Generalized Edema Type: Non-pitting Edema Degree: 1+ Capillary Refill: < 3 seconds Skin Temperature: Warm Peripheral Pulses: within normal limits - Abdominal General gastrointestinal: soft, non-distended, normal bowel sounds - Integumentary Integumentary: Present: clear, warm, dry - Psychiatric Psychiatric: appropriate mood/affect, cooperative - Neurologic Neurologic: CNII-XII intact, moves all extremities - Allied Health Allied health notes reviewed: nursing HEART Score - HEART Score Troponin: Troponin T < 0.010 ng/mL (0.00-0.029) 01/25/22 16:04 Results - Labs CBC & Chem 7: 01/26/22 13:21 01/26/22 13:21 Labs: Laboratory Last Values WBC 15.4 K/mm3 (4.5-11.0) H 01/25/22 16:04 RBC 5.79 M/mm3 (3.65-5.03) H 01/25/22 16:04 Hgb 15.4 gm/dl (10.1-14.3) H 01/25/22 16:04 Hct 54.1 % (30.3-42.9) H 01/25/22 16:04 MCV 93 fl (79-97) 01/25/22 16:04 MCH 27 pg (28-32) L 01/25/22 16:04 MCHC 29 % (30-34) L 01/25/22 16:04 RDW 15.8 % (13.2-15.2) H 01/25/22 16:04 Plt Count 221 K/mm3 (140-440) 01/25/22 16:04 Lymph % (Auto) 4.6 % (13.4-35.0) L 01/25/22 16:04 [place] % (Auto) 7.6 % (0.0-7.3) H 01/25/22 16:04 Eos % (Auto) 0.0 % (0.0-4.3) 01/25/22 16:04 Baso % (Auto) 0.1 % (0.0-1.8) 01/25/22 16:04 Lymph # (Auto) 0.7 K/mm3 (1.2-5.4) L 01/25/22 16:04 [place] # (Auto) 1.2 K/mm3 (0.0-0.8) H 01/25/22 16:04 Eos # (Auto) 0.0 K/mm3 (0.0-0.4) 01/25/22 16:04 Baso # (Auto) 0.0 K/mm3 (0.0-0.1) 01/25/22 16:04 Seg Neutrophils % 87.7 % (40.0-70.0) H 01/25/22 16:04 Seg Neutrophils # 13.5 K/mm3 (1.8-7.7) H 01/25/22 16:04 VBG pH 7.184 (7.320-7.420) L* 01/25/22 16:04 Sodium 149 mmol/L (137-145) H 01/26/22 04:17 Potassium 4.1 mmol/L (3.6-5.0) 01/26/22 04:17 Chloride 116.9 mmol/L (98-107) H 01/26/22 04:17 Carbon Dioxide 14 mmol/L (22-30) L 01/26/22 04:17 Anion Gap 22 mmol/L 01/26/22 04:17 BUN 35 mg/dL (7-17) H 01/26/22 04:17 Creatinine 1.5 mg/dL (0.6-1.2) H 01/26/22 04:17 Estimated GFR 44 ml/min 01/26/22 04:17 BUN/Creatinine Ratio 23 % 01/26/22 04:17 Glucose 208 mg/dL (65-100) H 01/26/22 04:17 POC Glucose 193 mg/dL (70-105) H 01/26/22 11:25 Hemoglobin A1c 10.8 % (4-6) H 01/25/22 16:04 Ketones Quantitative Negative (Negative) 01/25/22 16:04 Calcium 10.3 mg/dL (8.4-10.2) H 01/26/22 04:17 Phosphorus 2.70 mg/dL (2.5-4.5) 01/25/22 19:27 Magnesium 3.10 mg/dL (1.7-2.3) H 01/25/22 16:04 Total Bilirubin 0.30 mg/dL (0.1-1.2) 01/25/22 16:04 Total Bilirubin 0.40 mg/dL (0.1-1.2) 01/25/22 16:04 Direct Bilirubin < 0.2 mg/dL (0-0.2) 01/25/22 16:04 Indirect Bilirubin 0.1 mg/dL 01/25/22 16:04 AST 13 units/L (5-40) 01/25/22 16:04 AST 17 units/L (5-40) 01/25/22 16:04 ALT 24 units/L (7-56) 01/25/22 16:04 ALT 25 units/L (7-56) 01/25/22 16:04 Alkaline Phosphatase 99 units/L (35-129) 01/25/22 16:04 Alkaline Phosphatase 100 units/L (35-129) 01/25/22 16:04 Total Creatine Kinase 274 units/L (30-135) H 01/25/22 16:04 Troponin T < 0.010 ng/mL (0.00-0.029) 01/25/22 16:04 Total Protein 8.0 g/dL (6.3-8.2) 01/25/22 16:04 Total Protein 8.5 g/dL (6.3-8.2) H 01/25/22 16:04 Albumin 4.5 g/dL (3.9-5) 01/25/22 16:04 Albumin 4.6 g/dL (3.9-5) 01/25/22 16:04 Albumin/Globulin Ratio 1.1 % 01/25/22 16:04 Albumin/Globulin Ratio 1.4 % 01/25/22 16:04 Lipase Cancelled 01/25/22 16:04 TSH 0.516 mlU/mL (0.270-4.200) 01/25/22 16:04 Urine Color Straw (Yellow) 01/25/22 02:16 Urine Turbidity Slightly-cloudy (Clear) 01/25/22 02:16 Urine pH 5.0 (5.0-7.0) 01/25/22 02:16 Ur Specific [place] 1.029 (1.003-1.030) 01/25/22 02:16 Urine Protein 30 mg/dl mg/dL (Negative) 01/25/22 02:16 Urine Glucose (UA) >=500 mg/dL (Negative) 01/25/22 02:16 Urine Ketones 80 mg/dL (Negative) 01/25/22 02:16 Urine Blood Mod (Negative) 01/25/22 02:16 Urine Nitrite Neg (Negative) 01/25/22 02:16 Urine Bilirubin Neg (Negative) 01/25/22 02:16 Urine Urobilinogen < 2.0 mg/dL (<2.0) 01/25/22 02:16 Ur Leukocyte Esterase Mod (Negative) 01/25/22 02:16 Urine WBC (Auto) 47.0 /HPF (0.0-6.0) H 01/25/22 02:16 Urine RBC (Auto) 24.0 /HPF (0.0-6.0) 01/25/22 02:16 U Epithel Cells (Auto) 1.0 /HPF (0-13.0) 01/25/22 02:16 Urine Bacteria (Auto) 1+ /HPF (Negative) 01/25/22 02:16 Urine Mucus Few /HPF 01/25/22 02:16 [place]/IV: Voiding Method External Female Catheter Active Medications - Current Medications Current Medications: Generic Name Dose Route Start Last Admin Trade Name Freq PRN Reason Stop Dose Admin Acetaminophen 650 mg 01/25/22 19:41 Acetaminophen 325 Mg Tab PO Q4H PRN Pain MILD(1-3)/Fever >100.5/BOOKER Albuterol/Ipratropium 1 ampul 01/26/22 10:11 Ipratropium/Albuterol Sulfate 3 Ml Ampul.Neb IH Q6HRT PRN Wheezing Dextrose 0 ml 01/25/22 20:00 Dextrose 10% *Hypoglycemia IV Q30MIN PRN Hypoglycemia Protocol Famotidine 10 mg 01/26/22 10:00 01/26/22 09:45 Famotidine 10 Mg Tab PO 10 mg BID JOSE D Administration Heparin Sodium (Porcine) 5,000 unit 01/25/22 22:00 01/26/22 09:45 Heparin 5,000 Unit/1 Ml Vial SUB-Q 5,000 unit Q12HR JOSE D Administration Insulin Human Regular 100 100 mls @ 1 mls/hr 01/25/22 19:00 01/26/22 11:53 units/ Sodium Chloride IV 8 units/hr TITR JOSE D 8 mls/hr Titration Protocol 1 UNITS/HR Potassium Chloride/Dextrose/Sod Cl 20 meq in 1,000 mls @ 125 mls/hr 01/25/22 19:00 01/26/22 06:47 D5w/0.45% Nacl/Kcl 20 Meq IV 125 mls/hr DIRECT JOSE D Administration Ceftriaxone Sodium 2 gm in 100 mls @ 200 mls/hr 01/26/22 10:00 01/26/22 09:45 Rocephin/Ns 2 Gm/100 Ml IV 200 mls/hr Q24HR JOSE D Administration Protocol Morphine Sulfate 2 mg 01/25/22 19:41 Morphine 2 Mg/1 Ml Inj IV Q4H PRN Pain, Moderate (4-6) Ondansetron HCl 4 mg 01/25/22 19:41 Ondansetron 4 Mg/2 Ml Inj IV Q8H PRN Nausea And Vomiting Senna 17.2 mg 01/26/22 22:00 Sennosides 8.6 Mg Tab PO QHS JOSE D Sodium Chloride 10 ml 01/25/22 22:00 01/26/22 09:46 Sodium Chloride 0.9% 10 Ml Flush Syringe IV 10 ml BID JOSE D Administration Sodium Chloride 10 ml 01/25/22 19:41 Sodium Chloride 0.9% 10 Ml Flush Syringe IV PRN PRN LINE FLUSH <AKHIL GAGNON William - Last Filed: 01/27/22 07:52> Assessment and Plan Assessment and plan: I saw and evaluated the patient. I agree with the findings and the plan of care as documented in the Nurse Practitioner's~note, with the following corrections and additions. Hospitalist Physical - Constitutional Vitals: Temp Pulse Resp BP Pulse Ox 98.6 F 92 H 18 111/51 97 01/27/22 00:00 01/27/22 06:00 01/27/22 06:00 01/27/22 06:00 01/27/22 06:00 HEART Score - HEART Score Troponin: Troponin T < 0.010 ng/mL (0.00-0.029) 01/25/22 16:04 Results - Labs CBC & Chem 7: 01/27/22 04:23 01/27/22 04:23 Labs: Laboratory Last Values WBC 5.9 K/mm3 (4.5-11.0) 01/27/22 04:23 RBC 4.28 M/mm3 (3.65-5.03) 01/27/22 04:23 Hgb 11.9 gm/dl (10.1-14.3) D 01/27/22 04:23 Hct 36.3 % (30.3-42.9) D 01/27/22 04:23 MCV 85 fl (79-97) 01/27/22 04:23 MCH 28 pg (28-32) 01/27/22 04:23 MCHC 33 % (30-34) 01/27/22 04:23 RDW 14.9 % (13.2-15.2) 01/27/22 04:23 Plt Count 152 K/mm3 (140-440) 01/27/22 04:23 Lymph % (Auto) 4.6 % (13.4-35.0) L 01/25/22 16:04 [place] % (Auto) 7.6 % (0.0-7.3) H 01/25/22 16:04 Eos % (Auto) 0.0 % (0.0-4.3) 01/25/22 16:04 Baso % (Auto) 0.1 % (0.0-1.8) 01/25/22 16:04 Lymph # (Auto) 0.7 K/mm3 (1.2-5.4) L 01/25/22 16:04 [place] # (Auto) 1.2 K/mm3 (0.0-0.8) H 01/25/22 16:04 Eos # (Auto) 0.0 K/mm3 (0.0-0.4) 01/25/22 16:04 Baso # (Auto) 0.0 K/mm3 (0.0-0.1) 01/25/22 16:04 Seg Neutrophils % 87.7 % (40.0-70.0) H 01/25/22 16:04 Seg Neutrophils # 13.5 K/mm3 (1.8-7.7) H 01/25/22 16:04 VBG pH 7.184 (7.320-7.420) L* 01/25/22 16:04 Sodium 146 mmol/L (137-145) H 01/27/22 04:23 Potassium 3.6 mmol/L (3.6-5.0) 01/27/22 04:23 Chloride 113.8 mmol/L (98-107) H 01/27/22 04:23 Carbon Dioxide 17 mmol/L (22-30) L 01/27/22 04:23 Anion Gap 19 mmol/L 01/27/22 04:23 BUN 16 mg/dL (7-17) 01/27/22 04:23 Creatinine 1.2 mg/dL (0.6-1.2) 01/27/22 04:23 Estimated GFR 57 ml/min 01/27/22 04:23 BUN/Creatinine Ratio 13 % 01/27/22 04:23 Glucose 169 mg/dL (65-100) H 01/27/22 04:23 POC Glucose 127 mg/dL (70-105) H 01/27/22 05:31 Hemoglobin A1c 10.8 % (4-6) H 01/25/22 16:04 Ketones Quantitative Negative (Negative) 01/25/22 16:04 Calcium 8.6 mg/dL (8.4-10.2) 01/27/22 04:23 Phosphorus 1.80 mg/dL (2.5-4.5) L D 01/27/22 00:17 Magnesium 1.90 mg/dL (1.7-2.3) 01/27/22 00:17 Total Bilirubin 0.30 mg/dL (0.1-1.2) 01/25/22 16:04 Total Bilirubin 0.40 mg/dL (0.1-1.2) 01/25/22 16:04 Direct Bilirubin < 0.2 mg/dL (0-0.2) 01/25/22 16:04 Indirect Bilirubin 0.1 mg/dL 01/25/22 16:04 AST 13 units/L (5-40) 01/25/22 16:04 AST 17 units/L (5-40) 01/25/22 16:04 ALT 24 units/L (7-56) 01/25/22 16:04 ALT 25 units/L (7-56) 01/25/22 16:04 Alkaline Phosphatase 99 units/L (35-129) 01/25/22 16:04 Alkaline Phosphatase 100 units/L (35-129) 01/25/22 16:04 Total Creatine Kinase 274 units/L (30-135) H 01/25/22 16:04 Troponin T < 0.010 ng/mL (0.00-0.029) 01/25/22 16:04 Total Protein 8.0 g/dL (6.3-8.2) 01/25/22 16:04 Total Protein 8.5 g/dL (6.3-8.2) H 01/25/22 16:04 Albumin 4.5 g/dL (3.9-5) 01/25/22 16:04 Albumin 4.6 g/dL (3.9-5) 01/25/22 16:04 Albumin/Globulin Ratio 1.1 % 01/25/22 16:04 Albumin/Globulin Ratio 1.4 % 01/25/22 16:04 Lipase Cancelled 01/25/22 16:04 TSH 0.516 mlU/mL (0.270-4.200) 01/25/22 16:04 Urine Color Straw (Yellow) 01/25/22 02:16 Urine Turbidity Slightly-cloudy (Clear) 01/25/22 02:16 Urine pH 5.0 (5.0-7.0) 01/25/22 02:16 Ur Specific [place] 1.029 (1.003-1.030) 01/25/22 02:16 Urine Protein 30 mg/dl mg/dL (Negative) 01/25/22 02:16 Urine Glucose (UA) >=500 mg/dL (Negative) 01/25/22 02:16 Urine Ketones 80 mg/dL (Negative) 01/25/22 02:16 Urine Blood Mod (Negative) 01/25/22 02:16 Urine Nitrite Neg (Negative) 01/25/22 02:16 Urine Bilirubin Neg (Negative) 01/25/22 02:16 Urine Urobilinogen < 2.0 mg/dL (<2.0) 01/25/22 02:16 Ur Leukocyte Esterase Mod (Negative) 01/25/22 02:16 Urine WBC (Auto) 47.0 /HPF (0.0-6.0) H 01/25/22 02:16 Urine RBC (Auto) 24.0 /HPF (0.0-6.0) 01/25/22 02:16 U Epithel Cells (Auto) 1.0 /HPF (0-13.0) 01/25/22 02:16 Urine Bacteria (Auto) 1+ /HPF (Negative) 01/25/22 02:16 Urine Mucus Few /HPF 01/25/22 02:16 [place]/IV: Voiding Method Toilet Active Medications - Current Medications Current Medications: Generic Name Dose Route Start Last Admin Trade Name Freq PRN Reason Stop Dose Admin Acetaminophen 650 mg 01/25/22 19:41 Acetaminophen 325 Mg Tab PO Q4H PRN Pain MILD(1-3)/Fever >100.5/BOOKER Albuterol/Ipratropium 1 ampul 01/26/22 10:11 Ipratropium/Albuterol Sulfate 3 Ml Ampul.Neb IH Q6HRT PRN Wheezing Dextrose 0 ml 01/25/22 20:00 Dextrose 10% *Hypoglycemia IV Q30MIN PRN Hypoglycemia Protocol Dextrose 50 ml 01/26/22 20:49 Dextrose 50% In Water (25gm) 50 Ml Syringe IV Q30MIN PRN Hypoglycemia Protocol Famotidine 10 mg 01/26/22 10:00 01/26/22 21:36 Famotidine 10 Mg Tab PO 10 mg BID JOSE D Administration Heparin Sodium (Porcine) 5,000 unit 01/25/22 22:00 01/26/22 21:35 Heparin 5,000 Unit/1 Ml Vial SUB-Q 5,000 unit Q12HR JOSE D Administration Potassium Chloride/Dextrose/Sod Cl 20 meq in 1,000 mls @ 125 mls/hr 01/25/22 19:00 01/26/22 14:23 D5w/0.45% Nacl/Kcl 20 Meq IV 125 mls/hr DIRECT JOSE D Administration Ceftriaxone Sodium 1 gm in 50 mls @ 100 mls/hr 01/27/22 10:00 Rocephin/Ns 1 Gm/50 Ml IV 01/29/22 09:59 Q24H [facility] Protocol Insulin Human Lispro 0 unit 01/26/22 21:00 01/27/22 05:38 Insulin Lispro 100 Unit/Ml SUB-Q Not Given Q6HR [facility] Protocol Morphine Sulfate 2 mg 01/25/22 19:41 Morphine 2 Mg/1 Ml Inj IV Q4H PRN Pain, Moderate (4-6) Ondansetron HCl 4 mg 01/25/22 19:41 Ondansetron 4 Mg/2 Ml Inj IV Q8H PRN Nausea And Vomiting Senna 17.2 mg 01/26/22 22:00 01/26/22 21:36 Sennosides 8.6 Mg Tab PO 17.2 mg QHS JOSE D Administration Sodium Chloride 10 ml 01/25/22 22:00 01/26/22 21:36 Sodium Chloride 0.9% 10 Ml Flush Syringe IV 10 ml BID JOSE D Administration Sodium Chloride 10 ml 01/25/22 19:41 Sodium Chloride 0.9% 10 Ml Flush Syringe IV PRN PRN LINE FLUSH
[2022-01-26 14:22] LABS: Mean Corpuscular HGB Conc 31 % (30-34); Mean Corpuscular Volume 86 fl (79-97); Platelet Count 126 K/mm3 (140-440); Red Blood Count 5.93 M/mm3 (3.65-5.03); Red Cell Distribution Width 15.1 % (13.2-15.2)
[2022-01-26 14:23] LABS: Hematocrit 50.9 % (30.3-42.9); Hemoglobin 15.6 gm/dl (10.1-14.3)
[2022-01-26] MEDS ORDERED: POTASSIUM PHOSPHATE 15 MMOL in SODIUM CHLORIDE 0.9% 250ML 250 ML IV ONE (15:00)
[2022-01-26] MEDS: INSULIN REGULAR, HUMAN 100 UNITS in SODIUM CHLORIDE 0.9% 99 ML IV SCH (17:08)
[2022-01-26 19:25] LABS: BUN/Creatinine Ratio 20
[2022-01-26 19:43] LABS: Blood Urea Nitrogen TNR mg/dL (7-17); Calcium TNR mg/dL (8.4-10.2); Hemolysis Index TNR
[2022-01-26 20:42] LABS: Calcium 8.7 mg/dL (8.4-10.2)
[2022-01-26] MEDS ORDERED: DEXTROSE 50% IN WATER (25GM) 50 ML SYRINGE IV PRN (20:49)
[2022-01-26] MEDS: SENNOSIDES 8.6 MG TAB PO SCH (21:36)
[2022-01-27] MEDS: INSULIN LISPRO 100 UNIT/ML SUB-Q SCH ×7 (00:21→22:07)
[2022-01-27 01:32] LABS: BUN/Creatinine Ratio 15; Blood Urea Nitrogen 17 mg/dL (7-17); Calcium 8.7 mg/dL (8.4-10.2); Hemolysis Index 9
[2022-01-27] MEDS ORDERED: POTASSIUM PHOSPHATE 15 MMOL in SODIUM CHLORIDE 0.9% 250ML 250 ML IV ONE (03:24)
[2022-01-27 05:37] LABS: Calcium 8.6 mg/dL (8.4-10.2); Hematocrit 36.3 % (30.3-42.9); Hemoglobin 11.9 gm/dl (10.1-14.3); Mean Corpuscular HGB Conc 33 % (30-34); Mean Corpuscular Volume 85 fl (79-97); Platelet Count 152 K/mm3 (140-440); Red Blood Count 4.28 M/mm3 (3.65-5.03); Red Cell Distribution Width 14.9 % (13.2-15.2)
[2022-01-27] MEDS ORDERED: LACTATED RINGERS 1,000 ML IV ONE (09:15)
[2022-01-27] MEDS: HEPARIN 5,000 UNIT/1 ML VIAL SUB-Q SCH ×2 (09:36→22:03)
[2022-01-27] MEDS: cefTRIAXone/NS 1 GM/50 ML 1 GM/50 ML BAG IV SCH (09:36)
[2022-01-27] MEDS: FAMOTIDINE 10 MG TAB PO SCH ×2 (09:36→22:03)
[2022-01-27] MEDS: INSULIN GLARGINE 100 UNITS/ML SUB-Q SCH (09:41)
--- NOTE | 2022-01-27 13:44 | Event Note ---
Date: 01/27/22
--- NOTE | 2022-01-27 15:37 | Progress Note ---
Assessment and Plan DKA Acute Kidney Injury Hypernatremia Acute Metabolic Encephalopathy Metabolic acidosis Leukocytosis Urinary Tract Infection Nausea/Vomiting - prn supplemental oxygen to keep O2 sats > 90% - prn bronchodilators (EMMY) with pulm hygiene per RT - continue to avoid nephrotoxins, renally dose all medications - mobility protocols to prevent pressure ulcers - PT/OT as tolerated - Wound care per RN/WCT - continue accuchecks with glycemic control per SSI for target blood glucose < 180 mg/dL - Stobacco abstinence strongly counseled at the bedside - prn analgesia per pain score - GI & VTE prophylaxis - Flu & pneumovax per protocol - continue other care per attending / other consultants ... re-evaluate in am & prn ... transfer to medical floor Subjective Date of service: 01/27/22 Principal diagnosis: DKA; LATONYA; Hypernatremia; AMS; Metabolic acidosis; UTI Interval history: Patient is seen today for: DKA; LATONYA; Hypernatremia; AMS; Metabolic acidosis; UTI Seen and examined at bedside; 24hour events reviewed; nursing and respiratory care staff consulted; no adverse overnight events reported to me; resting peacefully in bed; off IV insulin and long acting started; feels better; denies acute chest pain or palpitations; No N/V/F/C Objective Vital Signs - 12hr 01/27/22 01/27/22 01/27/22 04:00 05:00 06:00 Temperature Pulse Rate 103 H 103 H 92 H Pulse Rate [ 101 H From Monitor] Respiratory 15 16 18 Rate Blood Pressure 102/60 106/63 111/51 O2 Sat by Pulse 92 93 97 Oximetry 01/27/22 01/27/22 01/27/22 07:00 08:00 09:00 Temperature 98.8 F Pulse Rate 96 H 99 H 95 H Pulse Rate [ 101 H From Monitor] Respiratory 16 18 16 Rate Blood Pressure 105/42 119/64 130/54 O2 Sat by Pulse 95 97 97 Oximetry 01/27/22 01/27/22 01/27/22 10:00 11:00 12:00 Temperature 97.8 F Pulse Rate 92 H 95 H 102 H Pulse Rate [ 101 H From Monitor] Respiratory 15 17 16 Rate Blood Pressure 112/55 112/55 126/69 O2 Sat by Pulse 96 97 99 Oximetry 01/27/22 01/27/22 13:00 14:00 Temperature Pulse Rate 96 H 94 H Pulse Rate [ From Monitor] Respiratory 15 14 Rate Blood Pressure 137/71 147/73 O2 Sat by Pulse 99 97 Oximetry Constitutional: no acute distress Eyes: non-icteric ENT: oropharynx moist Neck: supple, no lymphadenopathy, no JVD Effort: normal Ascultation: Bilateral: clear Percussion: Bilateral: not dull Cardiovascular: regular rate and rhythm Gastrointestinal: normoactive bowel sounds, soft, non-tender, non-distended (protuberant) Integumentary: normal Extremities: no cyanosis, no edema, pulses normal, no ischemia or petechiae Neurologic: normal mental status, non-focal exam, pupils equal and round, motor strength normal and Psychiatric: mood appropriate, affect normal CBC and BMP: 01/27/22 04:23 01/27/22 04:23 Abnormal lab findings: Abnormal Labs 01/25/22 01/25/22 01/25/22 02:16 16:04 16:04 WBC 15.4 H RBC 5.79 H Hgb 15.4 H Hct 54.1 H MCH 27 L MCHC 29 L RDW 15.8 H Plt Count Lymph % (Auto) 4.6 L [place] % (Auto) 7.6 H Lymph # (Auto) 0.7 L [place] # (Auto) 1.2 H Seg Neutrophils % 87.7 H Seg Neutrophils # 13.5 H VBG pH Sodium 130 L Potassium 6.7 H* Chloride 87.5 L Carbon Dioxide 8 L* BUN 40 H Creatinine 1.8 H Glucose 968 H* POC Glucose Hemoglobin A1c Calcium 10.8 H Phosphorus Magnesium Total Creatine Kinase Total Protein Urine WBC (Auto) 47.0 H 01/25/22 01/25/22 01/25/22 16:04 16:04 16:04 WBC RBC Hgb Hct MCH MCHC RDW Plt Count Lymph % (Auto) [place] % (Auto) Lymph # (Auto) [place] # (Auto) Seg Neutrophils % Seg Neutrophils # VBG pH Sodium Potassium Chloride Carbon Dioxide BUN Creatinine Glucose POC Glucose Hemoglobin A1c 10.8 H Calcium Phosphorus Magnesium 3.10 H Total Creatine Kinase 274 H Total Protein 8.5 H Urine WBC (Auto) 01/25/22 01/25/22 01/25/22 16:04 16:22 19:27 WBC RBC Hgb Hct MCH MCHC RDW Plt Count Lymph % (Auto) [place] % (Auto) Lymph # (Auto) [place] # (Auto) Seg Neutrophils % Seg Neutrophils # VBG pH 7.184 L* Sodium Potassium Chloride Carbon Dioxide 6 L* BUN 36 H Creatinine 1.6 H Glucose 690 H* POC Glucose > 600 H Hemoglobin A1c Calcium Phosphorus Magnesium Total Creatine Kinase Total Protein Urine WBC (Auto) 01/25/22 01/25/22 01/25/22 21:13 22:27 22:29 WBC RBC Hgb Hct MCH MCHC RDW Plt Count Lymph % (Auto) [place] % (Auto) Lymph # (Auto) [place] # (Auto) Seg Neutrophils % Seg Neutrophils # VBG pH Sodium 147 H Potassium Chloride 112.8 H Carbon Dioxide 7 L* BUN 38 H Creatinine 1.7 H Glucose 281 H POC Glucose 210 H 208 H Hemoglobin A1c Calcium 10.9 H Phosphorus Magnesium Total Creatine Kinase Total Protein Urine WBC (Auto) 01/25/22 01/26/22 01/26/22 23:21 00:13 00:51 WBC RBC Hgb Hct MCH MCHC RDW Plt Count Lymph % (Auto) [place] % (Auto) Lymph # (Auto) [place] # (Auto) Seg Neutrophils % Seg Neutrophils # VBG pH Sodium Potassium Chloride 112.5 H Carbon Dioxide 10 L BUN 37 H Creatinine 1.6 H Glucose 249 H POC Glucose 251 H 273 H Hemoglobin A1c Calcium 10.4 H Phosphorus Magnesium Total Creatine Kinase Total Protein Urine WBC (Auto) 01/26/22 01/26/22 01/26/22 01:06 02:04 03:02 WBC RBC Hgb Hct MCH MCHC RDW Plt Count Lymph % (Auto) [place] % (Auto) Lymph # (Auto) [place] # (Auto) Seg Neutrophils % Seg Neutrophils # VBG pH Sodium Potassium Chloride Carbon Dioxide BUN Creatinine Glucose POC Glucose 213 H 209 H 208 H Hemoglobin A1c Calcium Phosphorus Magnesium Total Creatine Kinase Total Protein Urine WBC (Auto) 01/26/22 01/26/22 01/26/22 04:13 04:17 05:12 WBC RBC Hgb Hct MCH MCHC RDW Plt Count Lymph % (Auto) [place] % (Auto) Lymph # (Auto) [place] # (Auto) Seg Neutrophils % Seg Neutrophils # VBG pH Sodium 149 H Potassium Chloride 116.9 H Carbon Dioxide 14 L BUN 35 H Creatinine 1.5 H Glucose 208 H POC Glucose 220 H 174 H Hemoglobin A1c Calcium 10.3 H Phosphorus Magnesium Total Creatine Kinase Total Protein Urine WBC (Auto) 01/26/22 01/26/22 01/26/22 06:01 06:56 07:42 WBC RBC Hgb Hct MCH MCHC RDW Plt Count Lymph % (Auto) [place] % (Auto) Lymph # (Auto) [place] # (Auto) Seg Neutrophils % Seg Neutrophils # VBG pH Sodium Potassium Chloride Carbon Dioxide BUN Creatinine Glucose POC Glucose 141 H 162 H 165 H Hemoglobin A1c Calcium Phosphorus Magnesium Total Creatine Kinase Total Protein Urine WBC (Auto) 01/26/22 01/26/22 01/26/22 10:13 11:25 13:08 WBC RBC Hgb Hct MCH MCHC RDW Plt Count Lymph % (Auto) [place] % (Auto) Lymph # (Auto) [place] # (Auto) Seg Neutrophils % Seg Neutrophils # VBG pH Sodium Potassium Chloride Carbon Dioxide BUN Creatinine Glucose POC Glucose 175 H 193 H 178 H Hemoglobin A1c Calcium Phosphorus Magnesium Total Creatine Kinase Total Protein Urine WBC (Auto) 01/26/22 01/26/22 01/26/22 13:21 13:21 14:20 WBC RBC 5.93 H Hgb 15.6 H Hct 50.9 H MCH 26 L MCHC RDW Plt Count 126 L Lymph % (Auto) [place] % (Auto) Lymph # (Auto) [place] # (Auto) Seg Neutrophils % Seg Neutrophils # VBG pH Sodium 146 H Potassium Chloride 116.8 H Carbon Dioxide 17 L BUN 26 H Creatinine 1.3 H Glucose 163 H POC Glucose 141 H Hemoglobin A1c Calcium Phosphorus 1.00 L D Magnesium Total Creatine Kinase Total Protein Urine WBC (Auto) 01/26/22 01/26/22 01/26/22 15:44 17:02 18:17 WBC RBC Hgb Hct MCH MCHC RDW Plt Count Lymph % (Auto) [place] % (Auto) Lymph # (Auto) [place] # (Auto) Seg Neutrophils % Seg Neutrophils # VBG pH Sodium Potassium Chloride Carbon Dioxide BUN Creatinine Glucose POC Glucose 216 H 264 H 213 H Hemoglobin A1c Calcium Phosphorus Magnesium Total Creatine Kinase Total Protein Urine WBC (Auto) 01/26/22 01/26/22 01/26/22 18:37 19:12 20:07 WBC RBC Hgb Hct MCH MCHC RDW Plt Count Lymph % (Auto) [place] % (Auto) Lymph # (Auto) [place] # (Auto) Seg Neutrophils % Seg Neutrophils # VBG pH Sodium 146 H 149 H Potassium Chloride 116.0 H 118.3 H Carbon Dioxide 18 L BUN 20 H Creatinine Glucose 133 H POC Glucose 116 H Hemoglobin A1c Calcium Phosphorus 1.20 L Magnesium Total Creatine Kinase Total Protein Urine WBC (Auto) 01/26/22 01/27/22 01/27/22 20:58 00:06 00:17 WBC RBC Hgb Hct MCH MCHC RDW Plt Count Lymph % (Auto) [place] % (Auto) Lymph # (Auto) [place] # (Auto) Seg Neutrophils % Seg Neutrophils # VBG pH Sodium Potassium 3.3 L Chloride 113.0 H Carbon Dioxide 16 L BUN Creatinine Glucose 207 H POC Glucose 113 H 203 H Hemoglobin A1c Calcium Phosphorus 1.80 L D Magnesium Total Creatine Kinase Total Protein Urine WBC (Auto) 01/27/22 01/27/22 01/27/22 04:23 05:31 08:21 WBC RBC Hgb Hct MCH MCHC RDW Plt Count Lymph % (Auto) [place] % (Auto) Lymph # (Auto) [place] # (Auto) Seg Neutrophils % Seg Neutrophils # VBG pH Sodium 146 H Potassium Chloride 113.8 H Carbon Dioxide 17 L BUN Creatinine Glucose 169 H POC Glucose 127 H 289 H Hemoglobin A1c Calcium Phosphorus Magnesium Total Creatine Kinase Total Protein Urine WBC (Auto) 01/27/22 11:45 WBC RBC Hgb Hct MCH MCHC RDW Plt Count Lymph % (Auto) [place] % (Auto) Lymph # (Auto) [place] # (Auto) Seg Neutrophils % Seg Neutrophils # VBG pH Sodium Potassium Chloride Carbon Dioxide BUN Creatinine Glucose POC Glucose 256 H Hemoglobin A1c Calcium Phosphorus Magnesium Total Creatine Kinase Total Protein Urine WBC (Auto) Allied health notes reviewed: nursing
[2022-01-27] MEDS ORDERED: cefTRIAXone/NS 1 GM/50 ML 1 GM/50 ML BAG IV SCH (16:00)
[2022-01-27] MEDS ORDERED: ALBUTEROL 8.5 GM MDI INHALATION IH PRN (17:58)
--- NOTE | 2022-01-27 18:04 | Progress Note ---
<NATALIAHANNAKvng - Last Filed: 01/27/22 18:02> Assessment and Plan Assessment and plan: This is a 51-year-old female with asthma admitted for DKA with new onset diabetes Neuro: NAD, s/p acute metabolic encephalopathy -Avoid delirium -Reorientation ICU -Maintain sleep-wake cycle Cardiac: SR, NAD -Blood pressure monitoring per protocol -Resume home amlodipine if needed Respiratory: NAD -Pulmonary hygiene -SPO2 monitor per protocol -Supplemental oxygen as needed GI: Obesity -24 hours +2256 -PPI -CC diet -BR: Senokot -Encouraged lifestyle modifications upon discharge : Hypernatremia, hyperchloremia, metabolic acidosis, hypophosphatemia, acute kidney injury secondary to vasomotor nephropathy (resolved) -Strict intake and output -Renally dose medications -Avoid nephrotoxic medications -Daily weights -Replete phosphate -Trend BMP ID: Sepsis secondary to UTI -Presented with LATONYA, leukocytosis and pyuria on UA -Antibiotic therapy with ceftriaxone -f/u blood culture -Monitor WBC and temperature curve Endo: Diabetes mellitus, s/p DKA -S/p insulin drip -Avoid hypoglycemia -SSI -Accu-Cheks AC at bedtime -Long-acting insulin, titrate as needed -Hemoglobin A1c 10.8 -Nutrition consult for diabetic education Heme: Leukocytosis (resolved) -Trend CBC -Transfuse hemoglobin less than 7 -Monitor for signs of bleeding -SCDs to BLE while in bed -Heparin subcu The high probability of a clinically significant, sudden or life threatening deterioration of the [multiple] system(s) required my full and direct attention, intervention and personal management. The aggregate critical care time was [60] minutes. This time is in addition to time spent performing reported procedures but includes the following: [x] Data Review and interpretation [x] Patient assessment and monitoring of vital signs [x] Documentation [x] Medication orders and management Disposition Plan: transfer to floor Total Time Spent with Patient (Minutes): 60 History Interval history: This is a 51-year-old female with asthma with previous intubations x5 who presented to emergency department on 01/25 with complaints of severe malaise, fat igue, polyuria, polydipsia, intractable nausea and vomiting over the past week. Recommend emergency department revealed blood glucose of 968, hyponatremia, hypochloremia, hyperkalemia at 6.7, severe metabolic acidosis at 8, leukocytosis, acute kidney injury urinary tract infection and with hypercal cemia. Urinalysis reveals pyuria. Patient admitted with consult to [facility] for DKA with a UTI. Hospital Course to Date: 01/26: Remains on insulin gtt per DKA protocol, gap is still 22 this am. Additonal IVF bolus administered, continue insulin and IVF resuscitation therapy until gap is close then transitioned to SubQ insulin. Thorough discussion with bedside in regards to current condition and plan of care. She voiced extensive family history of diabetes and understand the information provided. Nursing staffs to provided further education/resources, nutrition also consulted for additional education. 01/27: Patient was transitioned off of insulin drip with SSI yesterday evening. This morning added long-acting insulin. Anion gap at 16.2 and given 1 L LR. Phosphate repleted with K-Phos. Patient will be transferred to the floor today. Hospitalist Physical - Constitutional Vitals: Temp Pulse Resp BP Pulse Ox 97.8 F 101 H 16 147/73 97 01/27/22 12:00 01/27/22 16:41 01/27/22 16:41 01/27/22 14:00 01/27/22 16:41 General appearance: Present: no acute distress, well-nourished, obese - EENT Eyes: Present: PERRL, EOM intact ENT: hearing intact, clear oral mucosa, dentition normal - Neck Neck: Present: normal ROM - Respiratory Respiratory effort: normal Respiratory: bilateral: CTA - Cardiovascular Rhythm: regular Heart Sounds: Present: S1 & S2. Absent: systolic murmur, diastolic murmur - Extremities Extremities: no ischemia, pulses intact, pulses symmetrical, No edema, normal temperature, normal color, Full ROM Peripheral Pulses: within normal limits - Abdominal General gastrointestinal: soft, non-tender, normal bowel sounds - Integumentary Integumentary: Present: warm, dry - Psychiatric Psychiatric: cooperative - Neurologic Neurologic: CNII-XII intact, no focal deficits, moves all extremities - Allied Health Allied health notes reviewed: nursing, RT, social work HEART Score - HEART Score Troponin: Troponin T < 0.010 ng/mL (0.00-0.029) 01/25/22 16:04 Results - Labs CBC & Chem 7: 01/27/22 04:23 01/27/22 04:23 Labs: Laboratory Last Values WBC 5.9 K/mm3 (4.5-11.0) 01/27/22 04:23 RBC 4.28 M/mm3 (3.65-5.03) 01/27/22 04:23 Hgb 11.9 gm/dl (10.1-14.3) D 01/27/22 04:23 Hct 36.3 % (30.3-42.9) D 01/27/22 04:23 MCV 85 fl (79-97) 01/27/22 04:23 MCH 28 pg (28-32) 01/27/22 04:23 MCHC 33 % (30-34) 01/27/22 04:23 RDW 14.9 % (13.2-15.2) 01/27/22 04:23 Plt Count 152 K/mm3 (140-440) 01/27/22 04:23 Lymph % (Auto) 4.6 % (13.4-35.0) L 01/25/22 16:04 Pettis % (Auto) 7.6 % (0.0-7.3) H 01/25/22 16:04 Eos % (Auto) 0.0 % (0.0-4.3) 01/25/22 16:04 Baso % (Auto) 0.1 % (0.0-1.8) 01/25/22 16:04 Lymph # (Auto) 0.7 K/mm3 (1.2-5.4) L 01/25/22 16:04 Pettis # (Auto) 1.2 K/mm3 (0.0-0.8) H 01/25/22 16:04 Eos # (Auto) 0.0 K/mm3 (0.0-0.4) 01/25/22 16:04 Baso # (Auto) 0.0 K/mm3 (0.0-0.1) 01/25/22 16:04 Seg Neutrophils % 87.7 % (40.0-70.0) H 01/25/22 16:04 Seg Neutrophils # 13.5 K/mm3 (1.8-7.7) H 01/25/22 16:04 VBG pH 7.184 (7.320-7.420) L* 01/25/22 16:04 Sodium 146 mmol/L (137-145) H 01/27/22 04:23 Potassium 3.6 mmol/L (3.6-5.0) 01/27/22 04:23 Chloride 113.8 mmol/L (98-107) H 01/27/22 04:23 Carbon Dioxide 17 mmol/L (22-30) L 01/27/22 04:23 Anion Gap 19 mmol/L 01/27/22 04:23 BUN 16 mg/dL (7-17) 01/27/22 04:23 Creatinine 1.2 mg/dL (0.6-1.2) 01/27/22 04:23 Estimated GFR 57 ml/min 01/27/22 04:23 BUN/Creatinine Ratio 13 % 01/27/22 04:23 Glucose 169 mg/dL (65-100) H 01/27/22 04:23 POC Glucose 250 mg/dL (70-105) H 01/27/22 16:19 Hemoglobin A1c 10.8 % (4-6) H 01/25/22 16:04 Ketones Quantitative Negative (Negative) 01/25/22 16:04 Calcium 8.6 mg/dL (8.4-10.2) 01/27/22 04:23 Phosphorus 1.80 mg/dL (2.5-4.5) L D 01/27/22 00:17 Magnesium 1.90 mg/dL (1.7-2.3) 01/27/22 00:17 Total Bilirubin 0.30 mg/dL (0.1-1.2) 01/25/22 16:04 Total Bilirubin 0.40 mg/dL (0.1-1.2) 01/25/22 16:04 Direct Bilirubin < 0.2 mg/dL (0-0.2) 01/25/22 16:04 Indirect Bilirubin 0.1 mg/dL 01/25/22 16:04 AST 13 units/L (5-40) 01/25/22 16:04 AST 17 units/L (5-40) 01/25/22 16:04 ALT 24 units/L (7-56) 01/25/22 16:04 ALT 25 units/L (7-56) 01/25/22 16:04 Alkaline Phosphatase 99 units/L (35-129) 01/25/22 16:04 Alkaline Phosphatase 100 units/L (35-129) 01/25/22 16:04 Total Creatine Kinase 274 units/L (30-135) H 01/25/22 16:04 Troponin T < 0.010 ng/mL (0.00-0.029) 01/25/22 16:04 Total Protein 8.0 g/dL (6.3-8.2) 01/25/22 16:04 Total Protein 8.5 g/dL (6.3-8.2) H 01/25/22 16:04 Albumin 4.5 g/dL (3.9-5) 01/25/22 16:04 Albumin 4.6 g/dL (3.9-5) 01/25/22 16:04 Albumin/Globulin Ratio 1.1 % 01/25/22 16:04 Albumin/Globulin Ratio 1.4 % 01/25/22 16:04 Lipase Cancelled 01/25/22 16:04 TSH 0.516 mlU/mL (0.270-4.200) 01/25/22 16:04 Urine Color Straw (Yellow) 01/25/22 02:16 Urine Turbidity Slightly-cloudy (Clear) 01/25/22 02:16 Urine pH 5.0 (5.0-7.0) 01/25/22 02:16 Ur Specific [place] 1.029 (1.003-1.030) 01/25/22 02:16 Urine Protein 30 mg/dl mg/dL (Negative) 01/25/22 02:16 Urine Glucose (UA) >=500 mg/dL (Negative) 01/25/22 02:16 Urine Ketones 80 mg/dL (Negative) 01/25/22 02:16 Urine Blood Mod (Negative) 01/25/22 02:16 Urine Nitrite Neg (Negative) 01/25/22 02:16 Urine Bilirubin Neg (Negative) 01/25/22 02:16 Urine Urobilinogen < 2.0 mg/dL (<2.0) 01/25/22 02:16 Ur Leukocyte Esterase Mod (Negative) 01/25/22 02:16 Urine WBC (Auto) 47.0 /HPF (0.0-6.0) H 01/25/22 02:16 Urine RBC (Auto) 24.0 /HPF (0.0-6.0) 01/25/22 02:16 U Epithel Cells (Auto) 1.0 /HPF (0-13.0) 01/25/22 02:16 Urine Bacteria (Auto) 1+ /HPF (Negative) 01/25/22 02:16 Urine Mucus Few /HPF 01/25/22 02:16 Microbiology: Microbiology 01/25/22 02:16 Urine,Clean Catch Urine Culture - Preliminary [place]/IV: Voiding Method Toilet Active Medications - Current Medications Current Medications: Generic Name Dose Route Start Last Admin Trade Name Freq PRN Reason Stop Dose Admin Acetaminophen 650 mg 01/25/22 19:41 Acetaminophen 325 Mg Tab PO Q4H PRN Pain MILD(1-3)/Fever >100.5/BOOKER Albuterol 1 puff 01/27/22 17:58 Albuterol 8.5 Gm Mdi Inhalation IH QID PRN Shortness Of Breath Albuterol/Ipratropium 1 ampul 01/26/22 10:11 Ipratropium/Albuterol Sulfate 3 Ml Ampul.Neb IH Q6HRT PRN Wheezing Dextrose 0 ml 01/25/22 20:00 Dextrose 10% *Hypoglycemia IV Q30MIN PRN Hypoglycemia Protocol Dextrose 50 ml 01/26/22 20:49 Dextrose 50% In Water (25gm) 50 Ml Syringe IV Q30MIN PRN Hypoglycemia Protocol Famotidine 10 mg 01/26/22 10:00 01/27/22 09:36 Famotidine 10 Mg Tab PO 10 mg BID JOSE D Administration Heparin Sodium (Porcine) 5,000 unit 01/25/22 22:00 01/27/22 09:36 Heparin 5,000 Unit/1 Ml Vial SUB-Q 5,000 unit Q12HR JOSE D Administration Ceftriaxone Sodium 1 gm in 50 mls @ 100 mls/hr 01/27/22 10:00 01/27/22 09:36 Rocephin/Ns 1 Gm/50 Ml IV 01/29/22 09:59 100 mls/hr Q24H JOSE D Administration Protocol Insulin Glargine 25 units 01/27/22 10:00 01/27/22 09:41 Insulin Glargine 100 Units/Ml SUB-Q 25 units QAMDIAB JOSE D Administration Insulin Human Lispro 0 unit 01/27/22 11:30 01/27/22 16:36 Insulin Lispro 100 Unit/Ml SUB-Q 6 unit ACHS JOSE D Administration Protocol Miscellaneous Medication 10.2 gm 01/27/22 22:00 Budesonide/Formoterol Fumarate [Symbicort 160-4.5 Mcg Inhaler] IH BID JOSE D Miscellaneous Medication 25 mcg 01/28/22 10:00 Fluticasone/Vilanterol [Breo Ellipta 200-25 Mcg Inh] IH DAILY JOSE D Montelukast Sodium 10 mg 01/27/22 18:00 Montelukast 10 Mg Tab PO QPM JOSE D Ondansetron HCl 4 mg 01/25/22 19:41 Ondansetron 4 Mg/2 Ml Inj IV Q8H PRN Nausea And Vomiting Senna 17.2 mg 01/26/22 22:00 01/26/22 21:36 Sennosides 8.6 Mg Tab PO 17.2 mg QHS JOSE D Administration Sodium Chloride 10 ml 01/25/22 22:00 01/27/22 09:36 Sodium Chloride 0.9% 10 Ml Flush Syringe IV 10 ml BID JOSE D Administration Sodium Chloride 10 ml 01/25/22 19:41 Sodium Chloride 0.9% 10 Ml Flush Syringe IV PRN PRN LINE FLUSH Nutrition/Malnutrition Assess - Dietary Evaluation Nutrition/Malnutrition Findings: Nutrition Notes Start: 01/27/22 15:45 Freq: Status: Active Protocol: Document 01/27/22 15:45 JOSEFINA (Rec: 01/27/22 15:51 JOSEFINA [id number]) Nutrition Notes Need for Assessment generated from: MD Order,straddle bug,Education Initial or Follow up Brief Note Current Diagnosis Acute Kidney Injury Other Pertinent Diagnosis DKA, new onset DM, asthma Current Diet Consistent CHO Labs/Tests A1C 10.8 (BG was 968 upon admission) Subjective/Other Information RD consulted for diet education; pt also screened for new onset of DM. Pt reports family hx of DM and that she takes steroids regularly for control of asthma. Reports good appetite and little knowledge of food sources of CHO. She admits to eating "a lot" of bread and rice. Very receptive to diet education. Current % PO Good (75-100%) Minimum of two criteria No #1 Nutrition Diagnosis Food and nutrition-related knowledge deficit Etiology new onset of DM As Evidenced by Signs and Symptoms A1C 10.8, pt unsure of all food sources of CHO; reports excessive intake of CHO-rich foods Nutrition Intervention Teaching Recipient Patient Learning Readiness Good Teaching Methods Discussion,Demonstration, Handout Response to Teaching Verbalize understanding Education Handouts Provided Signs and Symptoms of Hyper- and Hypoglycemia Hemoglobin A1C and Blood Sugar Control Meal Planning using MyPlate Food Sources of CHO Barriers to Learning No Barriers RD phone number provided Yes Patient aware of follow up options Yes Goal #1 Improved BG control Goal #2 Adhere to CHO-controlled diet Anticipated Discharge Needs: CHO-controlled diet Revisit per MD consult or patient Sign Off request: <[email or web address] E - Last Filed: 01/28/22 07:31> Assessment and Plan Assessment and plan: I saw and evaluated the patient. I agree with the findings and the plan of care as documented in the Nurse Practitioner's~note, with the following corrections and additions. Hospitalist Physical - Constitutional Vitals: Temp Pulse Resp BP Pulse Ox 97.8 F 101 H 18 147/73 98 01/27/22 12:00 01/27/22 16:41 01/28/22 04:41 01/27/22 14:00 01/28/22 04:41 HEART Score - HEART Score Troponin: Troponin T < 0.010 ng/mL (0.00-0.029) 01/25/22 16:04 Results - Labs CBC & Chem 7: 01/28/22 04:31 01/28/22 04:31 Labs: Laboratory Last Values WBC 4.1 K/mm3 (4.5-11.0) L 01/28/22 04:31 RBC 3.89 M/mm3 (3.65-5.03) 01/28/22 04:31 Hgb 11.0 gm/dl (10.1-14.3) 01/28/22 04:31 Hct 32.5 % (30.3-42.9) 01/28/22 04:31 MCV 83 fl (79-97) 01/28/22 04:31 MCH 28 pg (28-32) 01/28/22 04:31 MCHC 34 % (30-34) 01/28/22 04:31 RDW 14.5 % (13.2-15.2) 01/28/22 04:31 Plt Count 118 K/mm3 (140-440) L 01/28/22 04:31 Lymph % (Auto) 4.6 % (13.4-35.0) L 01/25/22 16:04 Pettis % (Auto) 7.6 % (0.0-7.3) H 01/25/22 16:04 Eos % (Auto) 0.0 % (0.0-4.3) 01/25/22 16:04 Baso % (Auto) 0.1 % (0.0-1.8) 01/25/22 16:04 Lymph # (Auto) 0.7 K/mm3 (1.2-5.4) L 01/25/22 16:04 Pettis # (Auto) 1.2 K/mm3 (0.0-0.8) H 01/25/22 16:04 Eos # (Auto) 0.0 K/mm3 (0.0-0.4) 01/25/22 16:04 Baso # (Auto) 0.0 K/mm3 (0.0-0.1) 01/25/22 16:04 Seg Neutrophils % 87.7 % (40.0-70.0) H 01/25/22 16:04 Seg Neutrophils # 13.5 K/mm3 (1.8-7.7) H 01/25/22 16:04 VBG pH 7.184 (7.320-7.420) L* 01/25/22 16:04 Sodium 146 mmol/L (137-145) H 01/28/22 04:31 Potassium 3.1 mmol/L (3.6-5.0) L 01/28/22 04:31 Chloride 112.2 mmol/L (98-107) H 01/28/22 04:31 Carbon Dioxide 21 mmol/L (22-30) L 01/28/22 04:31 Anion Gap 16 mmol/L 01/28/22 04:31 BUN 11 mg/dL (7-17) 01/28/22 04:31 Creatinine 0.9 mg/dL (0.6-1.2) 01/28/22 04:31 Estimated GFR > 60 ml/min 01/28/22 04:31 BUN/Creatinine Ratio 12 % 01/28/22 04:31 Glucose 201 mg/dL (65-100) H 01/28/22 04:31 POC Glucose 244 mg/dL (70-105) H 01/28/22 07:17 Hemoglobin A1c 10.8 % (4-6) H 01/25/22 16:04 Ketones Quantitative Negative (Negative) 01/25/22 16:04 Calcium 8.8 mg/dL (8.4-10.2) 01/28/22 04:31 Phosphorus 3.40 mg/dL (2.5-4.5) D 01/28/22 04:31 Magnesium 1.90 mg/dL (1.7-2.3) 01/28/22 04:31 Total Bilirubin 0.30 mg/dL (0.1-1.2) 01/25/22 16:04 Total Bilirubin 0.40 mg/dL (0.1-1.2) 01/25/22 16:04 Direct Bilirubin < 0.2 mg/dL (0-0.2) 01/25/22 16:04 Indirect Bilirubin 0.1 mg/dL 01/25/22 16:04 AST 13 units/L (5-40) 01/25/22 16:04 AST 17 units/L (5-40) 01/25/22 16:04 ALT 24 units/L (7-56) 01/25/22 16:04 ALT 25 units/L (7-56) 01/25/22 16:04 Alkaline Phosphatase 99 units/L (35-129) 01/25/22 16:04 Alkaline Phosphatase 100 units/L (35-129) 01/25/22 16:04 Total Creatine Kinase 274 units/L (30-135) H 01/25/22 16:04 Troponin T < 0.010 ng/mL (0.00-0.029) 01/25/22 16:04 Total Protein 8.0 g/dL (6.3-8.2) 01/25/22 16:04 Total Protein 8.5 g/dL (6.3-8.2) H 01/25/22 16:04 Albumin 4.5 g/dL (3.9-5) 01/25/22 16:04 Albumin 4.6 g/dL (3.9-5) 01/25/22 16:04 Albumin/Globulin Ratio 1.1 % 01/25/22 16:04 Albumin/Globulin Ratio 1.4 % 01/25/22 16:04 Lipase Cancelled 01/25/22 16:04 TSH 0.516 mlU/mL (0.270-4.200) 01/25/22 16:04 Urine Color Straw (Yellow) 01/25/22 02:16 Urine Turbidity Slightly-cloudy (Clear) 01/25/22 02:16 Urine pH 5.0 (5.0-7.0) 01/25/22 02:16 Ur Specific [place] 1.029 (1.003-1.030) 01/25/22 02:16 Urine Protein 30 mg/dl mg/dL (Negative) 01/25/22 02:16 Urine Glucose (UA) >=500 mg/dL (Negative) 01/25/22 02:16 Urine Ketones 80 mg/dL (Negative) 01/25/22 02:16 Urine Blood Mod (Negative) 01/25/22 02:16 Urine Nitrite Neg (Negative) 01/25/22 02:16 Urine Bilirubin Neg (Negative) 01/25/22 02:16 Urine Urobilinogen < 2.0 mg/dL (<2.0) 01/25/22 02:16 Ur Leukocyte Esterase Mod (Negative) 01/25/22 02:16 Urine WBC (Auto) 47.0 /HPF (0.0-6.0) H 01/25/22 02:16 Urine RBC (Auto) 24.0 /HPF (0.0-6.0) 01/25/22 02:16 U Epithel Cells (Auto) 1.0 /HPF (0-13.0) 01/25/22 02:16 Urine Bacteria (Auto) 1+ /HPF (Negative) 01/25/22 02:16 Urine Mucus Few /HPF 01/25/22 02:16 Microbiology: Microbiology 01/25/22 02:16 Urine,Clean Catch Urine Culture - Preliminary [place]/IV: Voiding Method Toilet Active Medications - Current Medications Current Medications: Generic Name Dose Route Start Last Admin Trade Name Freq PRN Reason Stop Dose Admin Acetaminophen 650 mg 01/25/22 19:41 Acetaminophen 325 Mg Tab PO Q4H PRN Pain MILD(1-3)/Fever >100.5/BOOKER Albuterol 2.5 mg 01/27/22 18:08 Albuterol 2.5 Mg/3 Ml Nebu IH Q4HRT PRN Shortness Of Breath Arformoterol Tartrate 15 mcg 01/27/22 20:00 01/27/22 22:51 Arformoterol 15 Mcg/2 Ml Nebu IH Not Given Q12HRT [facility] Budesonide 1 mg 01/27/22 20:00 01/27/22 22:51 Budesonide 0.5 Mg/2 Ml Nebu IH Not Given Q12HRT JOSE D Dextrose 0 ml 01/25/22 20:00 Dextrose 10% *Hypoglycemia IV Q30MIN PRN Hypoglycemia Protocol Dextrose 50 ml 01/26/22 20:49 Dextrose 50% In Water (25gm) 50 Ml Syringe IV Q30MIN PRN Hypoglycemia Protocol Famotidine 10 mg 01/26/22 10:00 01/27/22 22:03 Famotidine 10 Mg Tab PO 10 mg BID JOSE D Administration Heparin Sodium (Porcine) 5,000 unit 01/25/22 22:00 01/27/22 22:03 Heparin 5,000 Unit/1 Ml Vial SUB-Q 5,000 unit Q12HR JOSE D Administration Ceftriaxone Sodium 1 gm in 50 mls @ 100 mls/hr 01/27/22 10:00 01/27/22 09:36 Rocephin/Ns 1 Gm/50 Ml IV 01/29/22 09:59 100 mls/hr Q24H JOSE D Administration Protocol Insulin Glargine 25 units 01/27/22 10:00 01/27/22 09:41 Insulin Glargine 100 Units/Ml SUB-Q 25 units QAMDIAB JOSE D Administration Insulin Human Lispro 0 unit 01/27/22 11:30 01/27/22 22:07 Insulin Lispro 100 Unit/Ml SUB-Q 8 unit ACHS JOS ED Administration Protocol Montelukast Sodium 10 mg 01/27/22 18:00 01/27/22 19:33 Montelukast 10 Mg Tab PO 10 mg QPM JOSE D Administration Ondansetron HCl 4 mg 01/25/22 19:41 Ondansetron 4 Mg/2 Ml Inj IV Q8H PRN Nausea And Vomiting Senna 17.2 mg 01/26/22 22:00 01/27/22 22:03 Sennosides 8.6 Mg Tab PO 17.2 mg QHS JOSE D Administration Sodium Chloride 10 ml 01/25/22 22:00 01/27/22 22:04 Sodium Chloride 0.9% 10 Ml Flush Syringe IV 10 ml BID JOSE D Administration Sodium Chloride 10 ml 01/25/22 19:41 Sodium Chloride 0.9% 10 Ml Flush Syringe IV PRN PRN LINE FLUSH Nutrition/Malnutrition Assess - Dietary Evaluation Nutrition/Malnutrition Findings: Nutrition Notes Start: 01/27/22 15:45 Freq: Status: Active Protocol: Document 01/27/22 15:45 JOSEFINA (Rec: 01/27/22 15:51 JOSEFINA [id number]) Nutrition Notes Need for Assessment generated from: MD Order,straddle bug,Education Initial or Follow up Brief Note Current Diagnosis Acute Kidney Injury Other Pertinent Diagnosis DKA, new onset DM, asthma Current Diet Consistent CHO Labs/Tests A1C 10.8 (BG was 968 upon admission) Subjective/Other Information RD consulted for diet education; pt also screened for new onset of DM. Pt reports family hx of DM and that she takes steroids regularly for control of asthma. Reports good appetite and little knowledge of food sources of CHO. She admits to eating "a lot" of bread and rice. Very receptive to diet education. Current % PO Good (75-100%) Minimum of two criteria No #1 Nutrition Diagnosis Food and nutrition-related knowledge deficit Etiology new onset of DM As Evidenced by Signs and Symptoms A1C 10.8, pt unsure of all food sources of CHO; reports excessive intake of CHO-rich foods Nutrition Intervention Teaching Recipient Patient Learning Readiness Good Teaching Methods Discussion,Demonstration, Handout Response to Teaching Verbalize understanding Education Handouts Provided Signs and Symptoms of Hyper- and Hypoglycemia Hemoglobin A1C and Blood Sugar Control Meal Planning using MyPlate Food Sources of CHO Barriers to Learning No Barriers RD phone number provided Yes Patient aware of follow up options Yes Goal #1 Improved BG control Goal #2 Adhere to CHO-controlled diet Anticipated Discharge Needs: CHO-controlled diet Revisit per MD consult or patient Sign Off request:
[2022-01-27] MEDS ORDERED: ALBUTEROL 2.5 MG/3 ML NEBU IH PRN (18:08)
[2022-01-27] MEDS: MONTELUKAST 10 MG TAB PO SCH (19:33)
[2022-01-27] MEDS ORDERED: NON-FORMULARY EACH (Budesonide/Formoterol Fumarate [Symbicort 160-4.5 Mcg Inhaler] 10.2 GM IH SCH (22:00)
[2022-01-27] MEDS: SENNOSIDES 8.6 MG TAB PO SCH (22:03)
[2022-01-27] MEDS: ARFORMOTEROL 15 MCG/2 ML NEBU IH SCH (22:51)
[2022-01-27] MEDS: BUDESONIDE 0.5 MG/2 ML NEBU IH SCH (22:51)
[2022-01-28 05:05] LABS: Hematocrit 32.5 % (30.3-42.9); Mean Corpuscular HGB Conc 34 % (30-34); Mean Corpuscular Volume 83 fl (79-97); Platelet Count 118 K/mm3 (140-440); Red Blood Count 3.89 M/mm3 (3.65-5.03); Red Cell Distribution Width 14.5 % (13.2-15.2)
[2022-01-28 05:26] LABS: BUN/Creatinine Ratio 12; Blood Urea Nitrogen 11 mg/dL (7-17); Calcium 8.8 mg/dL (8.4-10.2); Hemolysis Index 15
[2022-01-28] MEDS ORDERED: LACTATED RINGERS 1,000 ML IV ONE (08:00)
[2022-01-28] MEDS ORDERED: POTASSIUM CHLORIDE ER 20 MEQ TAB PO NR (08:00)
[2022-01-28] MEDS: BUDESONIDE 0.5 MG/2 ML NEBU IH SCH ×2 (08:42→20:20)
[2022-01-28] MEDS: ARFORMOTEROL 15 MCG/2 ML NEBU IH SCH ×2 (08:43→20:20)
[2022-01-28] MEDS: INSULIN LISPRO 100 UNIT/ML SUB-Q SCH ×4 (09:09→22:12)
[2022-01-28] MEDS: HEPARIN 5,000 UNIT/1 ML VIAL SUB-Q SCH ×2 (09:10→22:13)
[2022-01-28] MEDS: FAMOTIDINE 10 MG TAB PO SCH ×2 (09:10→22:13)
[2022-01-28] MEDS: INSULIN GLARGINE 100 UNITS/ML SUB-Q SCH (09:27)
[2022-01-28] MEDS: cefTRIAXone/NS 1 GM/50 ML 1 GM/50 ML BAG IV SCH (09:46)
[2022-01-28] MEDS ORDERED: FLUTICASONE IH SCH (10:00)
[2022-01-28] MEDS ORDERED: VILANTEROL IH SCH (10:00)
--- NOTE | 2022-01-28 11:52 | Progress Note ---
Assessment and Plan Assessment and plan: This is a 51-year-old female with asthma admitted for DKA with new onset diabetes #Acute metabolic encephalopathyresolved -Secondary to DKA #DKAresolved #Hypernatremiaresolved #Anion gap metabolic acidosisresolved #LATONYA secondary to vasomotor nephropathyresolved Newly diagnosed diabetes mellitus type 2 Status post insulin drip and ICU admission; transferred to floor Hemoglobin A1c: 10.8 Blood glucose goal [id number] while inpatient Starting Metformin 850 mg twice daily. Counseled patient about need to purchase a glucometer with testing strips and following up with her PCP upon discharge. Patient expresses understanding. Continue to monitor #Sepsis secondary to UTI UA revealing WBC 40 and moderate leukocyte esterase; however, patient denies symptoms of dysuria, frequency, or urgency. Urine culture also revealing less than 10,000 bacteria. Continue Rocephin 1 g daily x3 days; can be transitioned to oral antibiotic upon discharge #Obesity #Weight loss counseling #Exercise counseling - BMI 39.4 - Counseled patient on the importance of weight loss, incorporating exercise, and dietary changes (lean meats, fresh fruits and vegetables, and water intake). Patient expresses understanding. - Time: +10 min #Advanced care planning -Disease education conducted, care plan discussed, diagnoses discussed, prognosis discussed, and patient acknowledges understanding with care plan -Time: +30 min #Discharge planning - Case management has been made aware. - Discharge is tentatively for 01/29/2022 Disposition Plan: Pending discharge tomorrow Total Time Spent with Patient (Minutes): 30 minutes History Interval history: No acute events overnight. Hospitalist Physical - Constitutional Vitals: Temp Pulse Resp BP Pulse Ox 97.8 F 92 H 18 147/73 98 01/27/22 12:00 01/28/22 08:43 01/28/22 08:43 01/27/22 14:00 01/28/22 04:41 General appearance: Present: no acute distress, well-nourished, obese - EENT Eyes: Present: PERRL, EOM intact ENT: hearing intact, clear oral mucosa, dentition normal - Neck Neck: Present: supple, normal ROM - Respiratory Respiratory effort: normal Respiratory: bilateral: CTA - Cardiovascular Rhythm: regular Heart Sounds: Present: S1 & S2 - Extremities Extremities: no ischemia, pulses intact, pulses symmetrical, No edema, normal temperature, normal color Peripheral Pulses: within normal limits - Abdominal General gastrointestinal: soft, non-tender, non-distended, normal bowel sounds - Integumentary Integumentary: Present: clear, warm, dry - Psychiatric Psychiatric: appropriate mood/affect, intact judgment & insight, cooperative - Neurologic Neurologic: CNII-XII intact, moves all extremities - Allied Health Allied health notes reviewed: nursing HEART Score - HEART Score Troponin: Troponin T < 0.010 ng/mL (0.00-0.029) 01/25/22 16:04 Results - Labs CBC & Chem 7: 01/28/22 04:31 01/28/22 04:31 Labs: Laboratory Last Values WBC 4.1 K/mm3 (4.5-11.0) L 01/28/22 04:31 RBC 3.89 M/mm3 (3.65-5.03) 01/28/22 04:31 Hgb 11.0 gm/dl (10.1-14.3) 01/28/22 04:31 Hct 32.5 % (30.3-42.9) 01/28/22 04:31 MCV 83 fl (79-97) 01/28/22 04:31 MCH 28 pg (28-32) 01/28/22 04:31 MCHC 34 % (30-34) 01/28/22 04:31 RDW 14.5 % (13.2-15.2) 01/28/22 04:31 Plt Count 118 K/mm3 (140-440) L 01/28/22 04:31 Lymph % (Auto) 4.6 % (13.4-35.0) L 01/25/22 16:04 [place] % (Auto) 7.6 % (0.0-7.3) H 01/25/22 16:04 Eos % (Auto) 0.0 % (0.0-4.3) 01/25/22 16:04 Baso % (Auto) 0.1 % (0.0-1.8) 01/25/22 16:04 Lymph # (Auto) 0.7 K/mm3 (1.2-5.4) L 01/25/22 16:04 [place] # (Auto) 1.2 K/mm3 (0.0-0.8) H 01/25/22 16:04 Eos # (Auto) 0.0 K/mm3 (0.0-0.4) 01/25/22 16:04 Baso # (Auto) 0.0 K/mm3 (0.0-0.1) 01/25/22 16:04 Seg Neutrophils % 87.7 % (40.0-70.0) H 01/25/22 16:04 Seg Neutrophils # 13.5 K/mm3 (1.8-7.7) H 01/25/22 16:04 VBG pH 7.184 (7.320-7.420) L* 01/25/22 16:04 Sodium 146 mmol/L (137-145) H 01/28/22 04:31 Potassium 3.1 mmol/L (3.6-5.0) L 01/28/22 04:31 Chloride 112.2 mmol/L (98-107) H 01/28/22 04:31 Carbon Dioxide 21 mmol/L (22-30) L 01/28/22 04:31 Anion Gap 16 mmol/L 01/28/22 04:31 BUN 11 mg/dL (7-17) 01/28/22 04:31 Creatinine 0.9 mg/dL (0.6-1.2) 01/28/22 04:31 Estimated GFR > 60 ml/min 01/28/22 04:31 BUN/Creatinine Ratio 12 % 01/28/22 04:31 Glucose 201 mg/dL (65-100) H 01/28/22 04:31 POC Glucose 309 mg/dL (70-105) H 01/28/22 11:30 Hemoglobin A1c 10.8 % (4-6) H 01/25/22 16:04 Ketones Quantitative Negative (Negative) 01/25/22 16:04 Calcium 8.8 mg/dL (8.4-10.2) 01/28/22 04:31 Phosphorus 3.40 mg/dL (2.5-4.5) D 01/28/22 04:31 Magnesium 1.90 mg/dL (1.7-2.3) 01/28/22 04:31 Total Bilirubin 0.30 mg/dL (0.1-1.2) 01/25/22 16:04 Total Bilirubin 0.40 mg/dL (0.1-1.2) 01/25/22 16:04 Direct Bilirubin < 0.2 mg/dL (0-0.2) 01/25/22 16:04 Indirect Bilirubin 0.1 mg/dL 01/25/22 16:04 AST 13 units/L (5-40) 01/25/22 16:04 AST 17 units/L (5-40) 01/25/22 16:04 ALT 24 units/L (7-56) 01/25/22 16:04 ALT 25 units/L (7-56) 01/25/22 16:04 Alkaline Phosphatase 99 units/L (35-129) 01/25/22 16:04 Alkaline Phosphatase 100 units/L (35-129) 01/25/22 16:04 Total Creatine Kinase 274 units/L (30-135) H 01/25/22 16:04 Troponin T < 0.010 ng/mL (0.00-0.029) 01/25/22 16:04 Total Protein 8.0 g/dL (6.3-8.2) 01/25/22 16:04 Total Protein 8.5 g/dL (6.3-8.2) H 01/25/22 16:04 Albumin 4.5 g/dL (3.9-5) 01/25/22 16:04 Albumin 4.6 g/dL (3.9-5) 01/25/22 16:04 Albumin/Globulin Ratio 1.1 % 01/25/22 16:04 Albumin/Globulin Ratio 1.4 % 01/25/22 16:04 Lipase Cancelled 01/25/22 16:04 TSH 0.516 mlU/mL (0.270-4.200) 01/25/22 16:04 Urine Color Straw (Yellow) 01/25/22 02:16 Urine Turbidity Slightly-cloudy (Clear) 01/25/22 02:16 Urine pH 5.0 (5.0-7.0) 01/25/22 02:16 Ur Specific [place] 1.029 (1.003-1.030) 01/25/22 02:16 Urine Protein 30 mg/dl mg/dL (Negative) 01/25/22 02:16 Urine Glucose (UA) >=500 mg/dL (Negative) 01/25/22 02:16 Urine Ketones 80 mg/dL (Negative) 01/25/22 02:16 Urine Blood Mod (Negative) 01/25/22 02:16 Urine Nitrite Neg (Negative) 01/25/22 02:16 Urine Bilirubin Neg (Negative) 01/25/22 02:16 Urine Urobilinogen < 2.0 mg/dL (<2.0) 01/25/22 02:16 Ur Leukocyte Esterase Mod (Negative) 01/25/22 02:16 Urine WBC (Auto) 47.0 /HPF (0.0-6.0) H 01/25/22 02:16 Urine RBC (Auto) 24.0 /HPF (0.0-6.0) 01/25/22 02:16 U Epithel Cells (Auto) 1.0 /HPF (0-13.0) 01/25/22 02:16 Urine Bacteria (Auto) 1+ /HPF (Negative) 01/25/22 02:16 Urine Mucus Few /HPF 01/25/22 02:16 Microbiology: Microbiology 01/25/22 02:16 Urine,Clean Catch Urine Culture - Final [place]/IV: Voiding Method Toilet Active Medications - Current Medications Current Medications: Generic Name Dose Route Start Last Admin Trade Name Freq PRN Reason Stop Dose Admin Acetaminophen 650 mg 01/25/22 19:41 Acetaminophen 325 Mg Tab PO Q4H PRN Pain MILD(1-3)/Fever >100.5/BOOKER Albuterol 2.5 mg 01/27/22 18:08 Albuterol 2.5 Mg/3 Ml Nebu IH Q4HRT PRN Shortness Of Breath Arformoterol Tartrate 15 mcg 01/27/22 20:00 01/28/22 08:43 Arformoterol 15 Mcg/2 Ml Nebu IH 15 mcg Q12HRT JOSE D Administration Budesonide 1 mg 01/27/22 20:00 01/28/22 08:42 Budesonide 0.5 Mg/2 Ml Nebu IH 1 mg Q12HRT JOSE D Administration Dextrose 0 ml 01/25/22 20:00 Dextrose 10% *Hypoglycemia IV Q30MIN PRN Hypoglycemia Protocol Dextrose 50 ml 01/26/22 20:49 Dextrose 50% In Water (25gm) 50 Ml Syringe IV Q30MIN PRN Hypoglycemia Protocol Famotidine 10 mg 01/26/22 10:00 01/28/22 09:10 Famotidine 10 Mg Tab PO 10 mg BID JOSE D Administration Heparin Sodium (Porcine) 5,000 unit 01/25/22 22:00 01/28/22 09:10 Heparin 5,000 Unit/1 Ml Vial SUB-Q 5,000 unit Q12HR JOSE D Administration Insulin Glargine 25 units 01/27/22 10:00 01/28/22 09:27 Insulin Glargine 100 Units/Ml SUB-Q 25 units QAMDIAB JOSE D Administration Insulin Human Lispro 0 unit 01/27/22 11:30 01/28/22 09:09 Insulin Lispro 100 Unit/Ml SUB-Q 4 unit ACHS JOSE D Administration Protocol Metformin HCl 850 mg 01/28/22 12:00 Metformin 850 Mg Tab PO BIDDIAB JOSE D Montelukast Sodium 10 mg 01/27/22 18:00 01/27/22 19:33 Montelukast 10 Mg Tab PO 10 mg QPM JOSE D Administration Ondansetron HCl 4 mg 01/25/22 19:41 Ondansetron 4 Mg/2 Ml Inj IV Q8H PRN Nausea And Vomiting Potassium Chloride 40 meq 01/28/22 08:00 01/28/22 09:10 Potassium Chloride Er 20 Meq Tab PO 01/28/22 15:00 40 meq ONCE@0800 NR Administration Senna 17.2 mg 01/26/22 22:00 01/27/22 22:03 Sennosides 8.6 Mg Tab PO 17.2 mg QHS JOSE D Administration Sodium Chloride 10 ml 01/25/22 22:00 01/28/22 09:28 Sodium Chloride 0.9% 10 Ml Flush Syringe IV 10 ml BID JOSE D Administration Sodium Chloride 10 ml 01/25/22 19:41 Sodium Chloride 0.9% 10 Ml Flush Syringe IV PRN PRN LINE FLUSH Nutrition/Malnutrition Assess - Dietary Evaluation Nutrition/Malnutrition Findings: Nutrition Notes Start: 01/27/22 15:45 Freq: Status: Active Protocol: Document 01/27/22 15:45 JOSEFINA (Rec: 01/27/22 15:51 [email or web address] [id number]) Nutrition Notes Need for Assessment generated from: MD Order,drafter mechanical,Education Initial or Follow up Brief Note Current Diagnosis Acute Kidney Injury Other Pertinent Diagnosis DKA, new onset DM, asthma Current Diet Consistent CHO Labs/Tests A1C 10.8 (BG was 968 upon admission) Subjective/Other Information RD consulted for diet education; pt also screened for new onset of DM. Pt reports family hx of DM and that she takes steroids regularly for control of asthma. Reports good appetite and little knowledge of food sources of CHO. She admits to eating "a lot" of bread and rice. Very receptive to diet education. Current % PO Good (75-100%) Minimum of two criteria No #1 Nutrition Diagnosis Food and nutrition-related knowledge deficit Etiology new onset of DM As Evidenced by Signs and Symptoms A1C 10.8, pt unsure of all food sources of CHO; reports excessive intake of CHO-rich foods Nutrition Intervention Teaching Recipient Patient Learning Readiness Good Teaching Methods Discussion,Demonstration, Handout Response to Teaching Verbalize understanding Education Handouts Provided Signs and Symptoms of Hyper- and Hypoglycemia Hemoglobin A1C and Blood Sugar Control Meal Planning using MyPlate Food Sources of CHO Barriers to Learning No Barriers RD phone number provided Yes Patient aware of follow up options Yes Goal #1 Improved BG control Goal #2 Adhere to CHO-controlled diet Anticipated Discharge Needs: CHO-controlled diet Revisit per MD consult or patient Sign Off request:
[2022-01-28] MEDS: metFORMIN 850 MG TAB PO SCH ×2 (12:05→17:31)
--- NOTE | 2022-01-28 12:06 | Progress Note ---
Assessment and Plan DKA Acute Kidney Injury Hypernatremia Acute Metabolic Encephalopathy Metabolic acidosis Leukocytosis Urinary Tract Infection Nausea/Vomiting - prn supplemental oxygen to keep O2 sats > 90% - prn bronchodilators (EMMY) with pulm hygiene per RT - continue to avoid nephrotoxins, renally dose all medications - mobility protocols to prevent pressure ulcers - PT/OT as tolerated - Wound care per RN/WCT - continue accuchecks with glycemic control per SSI for target blood glucose < 180 mg/dL - Stobacco abstinence strongly counseled at the bedside - prn analgesia per pain score - GI & VTE prophylaxis - Flu & pneumovax per protocol - continue other care per attending / other consultants ... re-evaluate in am & prn Subjective Date of service: 01/28/22 Principal diagnosis: DKA; LATONYA; Hypernatremia; AMS; Metabolic acidosis; UTI Interval history: Patient is seen today for: DKA; LATONYA; Hypernatremia; AMS; Metabolic acidosis; UTI Seen and examined at bedside; 24hour events reviewed; nursing and respiratory care staff consulted; no adverse overnight events reported to me; resting peacefully in bed; Objective Vital Signs - 12hr 01/28/22 01/28/22 04:41 08:43 Pulse Rate [ 92 H Bilateral Throughout] Respiratory 18 Rate Respiratory 18 Rate [Bilateral Throughout] O2 Sat by Pulse 98 Oximetry Constitutional: no acute distress Eyes: non-icteric ENT: oropharynx moist Neck: supple, no lymphadenopathy, no JVD Effort: normal Ascultation: Bilateral: clear Percussion: Bilateral: not dull Cardiovascular: regular rate and rhythm Gastrointestinal: normoactive bowel sounds, soft, non-tender, non-distended (protuberant) Integumentary: normal Extremities: no cyanosis, no edema, pulses normal, no ischemia or petechiae Neurologic: normal mental status, non-focal exam, pupils equal and round, motor strength normal and Psychiatric: mood appropriate, affect normal CBC and BMP: 01/28/22 04:31 01/28/22 04:31 Abnormal lab findings: Abnormal Labs 01/25/22 01/25/22 01/25/22 02:16 16:04 16:04 WBC 15.4 H RBC 5.79 H Hgb 15.4 H Hct 54.1 H MCH 27 L MCHC 29 L RDW 15.8 H Plt Count Lymph % (Auto) 4.6 L Pierce % (Auto) 7.6 H Lymph # (Auto) 0.7 L Pierce # (Auto) 1.2 H Seg Neutrophils % 87.7 H Seg Neutrophils # 13.5 H VBG pH Sodium 130 L Potassium 6.7 H* Chloride 87.5 L Carbon Dioxide 8 L* BUN 40 H Creatinine 1.8 H Glucose 968 H* POC Glucose Hemoglobin A1c Calcium 10.8 H Phosphorus Magnesium Total Creatine Kinase Total Protein Urine WBC (Auto) 47.0 H 01/25/22 01/25/22 01/25/22 16:04 16:04 16:04 WBC RBC Hgb Hct MCH MCHC RDW Plt Count Lymph % (Auto) Pierce % (Auto) Lymph # (Auto) Pierce # (Auto) Seg Neutrophils % Seg Neutrophils # VBG pH Sodium Potassium Chloride Carbon Dioxide BUN Creatinine Glucose POC Glucose Hemoglobin A1c 10.8 H Calcium Phosphorus Magnesium 3.10 H Total Creatine Kinase 274 H Total Protein 8.5 H Urine WBC (Auto) 01/25/22 01/25/22 01/25/22 16:04 16:22 19:27 WBC RBC Hgb Hct MCH MCHC RDW Plt Count Lymph % (Auto) Pierce % (Auto) Lymph # (Auto) Pierce # (Auto) Seg Neutrophils % Seg Neutrophils # VBG pH 7.184 L* Sodium Potassium Chloride Carbon Dioxide 6 L* BUN 36 H Creatinine 1.6 H Glucose 690 H* POC Glucose > 600 H Hemoglobin A1c Calcium Phosphorus Magnesium Total Creatine Kinase Total Protein Urine WBC (Auto) 01/25/22 01/25/22 01/25/22 21:13 22:27 22:29 WBC RBC Hgb Hct MCH MCHC RDW Plt Count Lymph % (Auto) [place] % (Auto) Lymph # (Auto) Pierce # (Auto) Seg Neutrophils % Seg Neutrophils # VBG pH Sodium 147 H Potassium Chloride 112.8 H Carbon Dioxide 7 L* BUN 38 H Creatinine 1.7 H Glucose 281 H POC Glucose 210 H 208 H Hemoglobin A1c Calcium 10.9 H Phosphorus Magnesium Total Creatine Kinase Total Protein Urine WBC (Auto) 01/25/22 01/26/22 01/26/22 23:21 00:13 00:51 WBC RBC Hgb Hct MCH MCHC RDW Plt Count Lymph % (Auto) [place] % (Auto) Lymph # (Auto) [place] # (Auto) Seg Neutrophils % Seg Neutrophils # VBG pH Sodium Potassium Chloride 112.5 H Carbon Dioxide 10 L BUN 37 H Creatinine 1.6 H Glucose 249 H POC Glucose 251 H 273 H Hemoglobin A1c Calcium 10.4 H Phosphorus Magnesium Total Creatine Kinase Total Protein Urine WBC (Auto) 01/26/22 01/26/22 01/26/22 01:06 02:04 03:02 WBC RBC Hgb Hct MCH MCHC RDW Plt Count Lymph % (Auto) [place] % (Auto) Lymph # (Auto) [place] # (Auto) Seg Neutrophils % Seg Neutrophils # VBG pH Sodium Potassium Chloride Carbon Dioxide BUN Creatinine Glucose POC Glucose 213 H 209 H 208 H Hemoglobin A1c Calcium Phosphorus Magnesium Total Creatine Kinase Total Protein Urine WBC (Auto) 01/26/22 01/26/22 01/26/22 04:13 04:17 05:12 WBC RBC Hgb Hct MCH MCHC RDW Plt Count Lymph % (Auto) [place] % (Auto) Lymph # (Auto) Pierce # (Auto) Seg Neutrophils % Seg Neutrophils # VBG pH Sodium 149 H Potassium Chloride 116.9 H Carbon Dioxide 14 L BUN 35 H Creatinine 1.5 H Glucose 208 H POC Glucose 220 H 174 H Hemoglobin A1c Calcium 10.3 H Phosphorus Magnesium Total Creatine Kinase Total Protein Urine WBC (Auto) 01/26/22 01/26/22 01/26/22 06:01 06:56 07:42 WBC RBC Hgb Hct MCH MCHC RDW Plt Count Lymph % (Auto) Pierce % (Auto) Lymph # (Auto) Pierce # (Auto) Seg Neutrophils % Seg Neutrophils # VBG pH Sodium Potassium Chloride Carbon Dioxide BUN Creatinine Glucose POC Glucose 141 H 162 H 165 H Hemoglobin A1c Calcium Phosphorus Magnesium Total Creatine Kinase Total Protein Urine WBC (Auto) 01/26/22 01/26/22 01/26/22 10:13 11:25 13:08 WBC RBC Hgb Hct MCH MCHC RDW Plt Count Lymph % (Auto) [place] % (Auto) Lymph # (Auto) [place] # (Auto) Seg Neutrophils % Seg Neutrophils # VBG pH Sodium Potassium Chloride Carbon Dioxide BUN Creatinine Glucose POC Glucose 175 H 193 H 178 H Hemoglobin A1c Calcium Phosphorus Magnesium Total Creatine Kinase Total Protein Urine WBC (Auto) 01/26/22 01/26/22 01/26/22 13:21 13:21 14:20 WBC RBC 5.93 H Hgb 15.6 H Hct 50.9 H MCH 26 L MCHC RDW Plt Count 126 L Lymph % (Auto) [place] % (Auto) Lymph # (Auto) [place] # (Auto) Seg Neutrophils % Seg Neutrophils # VBG pH Sodium 146 H Potassium Chloride 116.8 H Carbon Dioxide 17 L BUN 26 H Creatinine 1.3 H Glucose 163 H POC Glucose 141 H Hemoglobin A1c Calcium Phosphorus 1.00 L D Magnesium Total Creatine Kinase Total Protein Urine WBC (Auto) 01/26/22 01/26/22 01/26/22 15:44 17:02 18:17 WBC RBC Hgb Hct MCH MCHC RDW Plt Count Lymph % (Auto) [place] % (Auto) Lymph # (Auto) Pierce # (Auto) Seg Neutrophils % Seg Neutrophils # VBG pH Sodium Potassium Chloride Carbon Dioxide BUN Creatinine Glucose POC Glucose 216 H 264 H 213 H Hemoglobin A1c Calcium Phosphorus Magnesium Total Creatine Kinase Total Protein Urine WBC (Auto) 01/26/22 01/26/22 01/26/22 18:37 19:12 20:07 WBC RBC Hgb Hct MCH MCHC RDW Plt Count Lymph % (Auto) [place] % (Auto) Lymph # (Auto) [place] # (Auto) Seg Neutrophils % Seg Neutrophils # VBG pH Sodium 146 H 149 H Potassium Chloride 116.0 H 118.3 H Carbon Dioxide 18 L BUN 20 H Creatinine Glucose 133 H POC Glucose 116 H Hemoglobin A1c Calcium Phosphorus 1.20 L Magnesium Total Creatine Kinase Total Protein Urine WBC (Auto) 01/26/22 01/27/22 01/27/22 20:58 00:06 00:17 WBC RBC Hgb Hct MCH MCHC RDW Plt Count Lymph % (Auto) [place] % (Auto) Lymph # (Auto) [place] # (Auto) Seg Neutrophils % Seg Neutrophils # VBG pH Sodium Potassium 3.3 L Chloride 113.0 H Carbon Dioxide 16 L BUN Creatinine Glucose 207 H POC Glucose 113 H 203 H Hemoglobin A1c Calcium Phosphorus 1.80 L D Magnesium Total Creatine Kinase Total Protein Urine WBC (Auto) 01/27/22 01/27/22 01/27/22 04:23 05:31 08:21 WBC RBC Hgb Hct MCH MCHC RDW Plt Count Lymph % (Auto) [place] % (Auto) Lymph # (Auto) [place] # (Auto) Seg Neutrophils % Seg Neutrophils # VBG pH Sodium 146 H Potassium Chloride 113.8 H Carbon Dioxide 17 L BUN Creatinine Glucose 169 H POC Glucose 127 H 289 H Hemoglobin A1c Calcium Phosphorus Magnesium Total Creatine Kinase Total Protein Urine WBC (Auto) 01/27/22 01/27/22 01/27/22 11:45 16:19 21:33 WBC RBC Hgb Hct MCH MCHC RDW Plt Count Lymph % (Auto) [place] % (Auto) Lymph # (Auto) [place] # (Auto) Seg Neutrophils % Seg Neutrophils # VBG pH Sodium Potassium Chloride Carbon Dioxide BUN Creatinine Glucose POC Glucose 256 H 250 H 328 H Hemoglobin A1c Calcium Phosphorus Magnesium Total Creatine Kinase Total Protein Urine WBC (Auto) 01/28/22 01/28/22 01/28/22 04:31 04:31 07:17 WBC 4.1 L RBC Hgb Hct MCH MCHC RDW Plt Count 118 L Lymph % (Auto) [place] % (Auto) Lymph # (Auto) [place] # (Auto) Seg Neutrophils % Seg Neutrophils # VBG pH Sodium 146 H Potassium 3.1 L Chloride 112.2 H Carbon Dioxide 21 L BUN Creatinine Glucose 201 H POC Glucose 244 H Hemoglobin A1c Calcium Phosphorus Magnesium Total Creatine Kinase Total Protein Urine WBC (Auto) 01/28/22 11:30 WBC RBC Hgb Hct MCH MCHC RDW Plt Count Lymph % (Auto) [place] % (Auto) Lymph # (Auto) [place] # (Auto) Seg Neutrophils % Seg Neutrophils # VBG pH Sodium Potassium Chloride Carbon Dioxide BUN Creatinine Glucose POC Glucose 309 H Hemoglobin A1c Calcium Phosphorus Magnesium Total Creatine Kinase Total Protein Urine WBC (Auto) Allied health notes reviewed: nursing
[2022-01-28] MEDS: MONTELUKAST 10 MG TAB PO SCH (17:31)
[2022-01-28] MEDS: SENNOSIDES 8.6 MG TAB PO SCH (22:13)
[2022-01-29 05:11] VITALS: BP 133/73
[2022-01-29 05:18] LABS: Hematocrit 36.7 % (30.3-42.9); Hemoglobin 11.4 gm/dl (10.1-14.3); Mean Corpuscular HGB Conc 31 % (30-34); Mean Corpuscular Volume 85 fl (79-97); Platelet Count 130 K/mm3 (140-440); Red Cell Distribution Width 14.6 % (13.2-15.2)
[2022-01-29 05:35] LABS: BUN/Creatinine Ratio 9; Blood Urea Nitrogen 8 mg/dL (7-17); Calcium 8.6 mg/dL (8.4-10.2); Hemolysis Index 8
[2022-01-29 06:43] LABS: Band Neutrophils # (Manual) 0.2 K/mm3; Hypochromasia Few; Large Platelets Few; Platelet Clumps Few; Platelet Estimate Consistent w Auto; Total Cells Counted 100; Toxic Vacuolation Few
[2022-01-29] MEDS ORDERED: POTASSIUM CHLORIDE ER 20 MEQ TAB PO NR ×2 (08:00→12:00)
[2022-01-29] MEDS: metFORMIN 850 MG TAB PO SCH (08:42)
[2022-01-29] MEDS: INSULIN GLARGINE 100 UNITS/ML SUB-Q SCH (08:42)
[2022-01-29] MEDS: INSULIN LISPRO 100 UNIT/ML SUB-Q SCH (08:43)
[2022-01-29] MEDS: BUDESONIDE 0.5 MG/2 ML NEBU IH SCH (08:46)
[2022-01-29] MEDS: ARFORMOTEROL 15 MCG/2 ML NEBU IH SCH (08:46)
[2022-01-29] MEDS: FAMOTIDINE 10 MG TAB PO SCH (09:10)
[2022-01-29] MEDS: HEPARIN 5,000 UNIT/1 ML VIAL SUB-Q SCH (09:10)
[2022-01-29] MEDS ORDERED: LOSARTAN 25 MG TAB PO SCH (10:00)
[2022-01-29] MEDS ORDERED: levoFLOXacin 750 MG TAB PO SCH (10:00)
--- NOTE | 2022-01-29 11:18 | Discharge Summary ---
Providers - Providers Date of Admission: 01/25/22 19:41 Date of discharge: 01/29/22 Attending physician: RAHEL GARCIA MD 01/25/22 17:07 Consult to Physician [CONS] Urgent Comment: Consulting Provider: MICHELLE COLORADO Physician Instructions: Reason For Exam: dka 01/25/22 20:03 Consult to Dietitian/Nutrition [CONS] Routine Physician Instructions: Reason For Exam: DKA Reason for Consult: Nutrition Recommendations Reason for Consult: Diet education Hospitalization Reason for admission: Newly diagnosed DKA, acute metabolic encephalopathy, LATONYA Condition: Serious Pertinent studies: Reviewed. Procedures: None. Hospital course: Patient is a 51-year-old female past medical history of difficult to control asthma (endotracheal intubation x5) and obesity who presented with malaise, fatigue, polyuria, polydipsia, and intractable nausea and vomiting those found to be secondary to newly diagnosed DKA. On presentation, the patient had a blood glucose of 690, WBC 15.4, VBG 7.184, bicarb 6, and urinalysis revealing moderate leukocyte esterase, WBC 47, RBC 24, and 1+ bacteria. The patient was started on aggressive IV fluid resuscitation, insulin drip, and admitted to the MICU for further management. The patient's anion gap metabolic acidosis soon resolved with better control of her blood sugars, and the patient was transferred to the floor. Patient was found to have a hemoglobin of 10.8. The patient has since been counseled about the importance of lifestyle changes such as weight loss, dietary changes, and incorporating exercise. The patient expresses understanding. The patient is already made an appointment with her primary care provider on 01/31/2022. The patient will be discharged on Metformin 850 mg twice daily. The patient will follow up with her PCP regarding possible insulin administration. Patient is medically cleared for discharge. Disposition: 01 HOME / SELF CARE / HOMELESS Final Discharge Diagnosis (Prints w/discharge instructions): Newly diagnosed diabetic ketoacidosis, acute metabolic encephalopathy, hypernatremia, anion gap metabolic acidosis, LATONYA secondary to vasomotor nephropathy, sepsis secondary to UTI, obesity, asthma, hypokalemia Time spent for discharge: 45 min Core Measure Documentation - Palliative Care Palliative Care/ Comfort Measures: Not Applicable - Core Measures Any of the following diagnoses?: none Exam - Constitutional Vitals: Temp Pulse Resp BP Pulse Ox 98.2 F 88 20 133/73 96 01/29/22 05:09 01/29/22 08:47 01/29/22 08:47 01/29/22 05:09 01/29/22 10:37 General appearance: Present: no acute distress, well-nourished, obese - EENT Eyes: Present: PERRL, EOM intact ENT: hearing intact, clear oral mucosa, dentition normal - Neck Neck: Present: supple, normal ROM - Respiratory Respiratory effort: normal - Cardiovascular Rhythm: regular Heart Sounds: Present: S1 & S2 - Extremities Extremities: no ischemia, pulses intact, pulses symmetrical, No edema, normal temperature, normal color Peripheral Pulses: within normal limits - Abdominal General gastrointestinal: Present: soft, non-tender, non-distended, normal bowel sounds Female genitourinary: Present: deferred - Rectal Rectal Exam: deferred - Integumentary Integumentary: Present: clear, warm, dry - Musculoskeletal Musculoskeletal: strength equal bilaterally - Psychiatric Psychiatric: appropriate mood/affect, intact judgment & insight, memory intact, cooperative - Neurologic Neurologic: CNII-XII intact - Allied Health Allied health notes reviewed: nursing Plan Activity: no restrictions Diet: low salt, diabetic Special Instructions: record blood sugar diary Additional Instructions: Patient is a 51-year-old female past medical history of difficult to control asthma (endotracheal intubation x5) and obesity who presented with malaise, fatigue, polyuria, polydipsia, and intractable nausea and vomiting those found to be secondary to newly diagnosed DKA. On presentation, the patient had a blood glucose of 690, WBC 15.4, VBG 7.184, bicarb 6, and urinalysis revealing moderate leukocyte esterase, WBC 47, RBC 24, and 1+ bacteria. The patient was started on aggressive IV fluid resuscitation, insulin drip, and admitted to the MICU for further management. The patient's anion gap metabolic acidosis soon resolved with better control of her blood suga rs, and the patient was transferred to the floor. Patient was found to have a hemoglobin of 10.8. The patient has since been counseled about the importance of lifestyle changes such as weight loss, dietary changes, and incorporating exercise. The patient expresses understanding. The patient is already made an appointment with her primary care provider on 01/31/2022. The patient will be discharged on Metformin 850 mg twice daily. The patient will follow up with her PCP regarding possible insulin administration. Patient is medically cleared for discharge. Care Plan Goals: Patient is medically clear for discharge. Assessment: Patient is a 51-year-old female past medical history of difficult to control asthma (endotracheal intubation x5) and obesity who presented with malaise, fatigue, polyuria, polydipsia, and intractable nausea and vomiting those found to be secondary to newly diagnosed DKA. On presentation, the patient had a blood glucose of 690, WBC 15.4, VBG 7.184, bicarb 6, and urinalysis revealing moderate leukocyte esterase, WBC 47, RBC 24, and 1+ bacteria. The patient was started on aggressive IV fluid resuscitation, insulin drip, and admitted to the MICU for further management. The patient's anion gap metabolic acidosis soon resolved with better control of her blood sugars, and the patient was transferred to the floor. Patient was found to have a hemoglobin of 10.8. The patient has since been counseled about the importance of lifestyle changes such as weight loss, dietary changes, and incorporating exercise. The patient expresses understanding. The patient is already made an appointment with her primary care provider on 01/31/2022. The patient will be discharged on Metformin 850 mg twice daily. The patient will follow up with her PCP regarding possible insulin administration. Patient is medically cleared for discharge. Follow up with: MK KRAUS [Other] - 3-5 Days Prescriptions: Losartan [Cozaar] 25 mg PO QDAY #30 tablet metFORMIN [Glucophage] 850 mg PO BIDDIAB #60 tablet levoFLOXacin [Levaquin TAB] 750 mg PO Q24HR #3 tablet
--- NOTE | 2022-01-29 13:31 | Progress Note ---
Assessment and Plan DKA Acute Kidney Injury Hypernatremia Acute Metabolic Encephalopathy Metabolic acidosis Leukocytosis Urinary Tract Infection Nausea/Vomiting - prn supplemental oxygen to keep O2 sats > 90% - prn bronchodilators (EMMY) with pulm hygiene per RT - continue to avoid nephrotoxins, renally dose all medications - mobility protocols to prevent pressure ulcers - PT/OT as tolerated - Wound care per RN/WCT - continue accuchecks with glycemic control per SSI for target blood glucose < 180 mg/dL - Stobacco abstinence strongly counseled at the bedside - prn analgesia per pain score - GI & VTE prophylaxis - Flu & pneumovax per protocol - continue other care per attending / other consultants ... re-evaluate in am & prn Subjective Date of service: 01/29/22 Principal diagnosis: DKA; LATONYA; Hypernatremia; AMS; Metabolic acidosis; UTI Interval history: Patient is seen today for: DKA; LATONYA; Hypernatremia; AMS; Metabolic acidosis; UTI Seen and examined at bedside; 24hour events reviewed; nursing and respiratory care staff consulted; no adverse overnight events reported to me; resting peacefully in bed; Objective Vital Signs - 12hr 01/29/22 01/29/22 01/29/22 02:00 05:09 08:47 Temperature 98.2 F Pulse Rate 83 Pulse Rate [ 88 Bilateral Throughout] Respiratory 18 16 Rate Respiratory 20 Rate [Bilateral Throughout] Blood Pressure 133/73 O2 Sat by Pulse 98 98 Oximetry 01/29/22 10:37 Temperature Pulse Rate Pulse Rate [ Bilateral Throughout] Respiratory Rate Respiratory Rate [Bilateral Throughout] Blood Pressure O2 Sat by Pulse 96 Oximetry Constitutional: no acute distress Eyes: non-icteric ENT: oropharynx moist Neck: supple, no lymphadenopathy, no JVD Effort: normal Ascultation: Bilateral: clear Percussion: Bilateral: not dull Cardiovascular: regular rate and rhythm Gastrointestinal: normoactive bowel sounds, soft, non-tender, non-distended (protuberant) Integumentary: normal Extremities: no cyanosis, no edema, pulses normal, no ischemia or petechiae Neurologic: normal mental status, non-focal exam, pupils equal and round, motor strength normal and Psychiatric: mood appropriate, affect normal CBC and BMP: 01/29/22 04:24 01/29/22 04:24 Abnormal lab findings: Abnormal Labs 01/25/22 01/25/22 01/25/22 02:16 16:04 16:04 WBC 15.4 H RBC 5.79 H Hgb 15.4 H Hct 54.1 H MCH 27 L MCHC 29 L RDW 15.8 H Plt Count Lymph % (Auto) 4.6 L Dillon % (Auto) 7.6 H Lymph # (Auto) 0.7 L Dillon # (Auto) 1.2 H Seg Neutrophils % 87.7 H Seg Neutrophils # 13.5 H VBG pH Sodium 130 L Potassium 6.7 H* Chloride 87.5 L Carbon Dioxide 8 L* BUN 40 H Creatinine 1.8 H Glucose 968 H* POC Glucose Hemoglobin A1c Calcium 10.8 H Phosphorus Magnesium Total Creatine Kinase Total Protein Urine WBC (Auto) 47.0 H 01/25/22 01/25/22 01/25/22 16:04 16:04 16:04 WBC RBC Hgb Hct MCH MCHC RDW Plt Count Lymph % (Auto) Dillon % (Auto) Lymph # (Auto) Dillon # (Auto) Seg Neutrophils % Seg Neutrophils # VBG pH Sodium Potassium Chloride Carbon Dioxide BUN Creatinine Glucose POC Glucose Hemoglobin A1c 10.8 H Calcium Phosphorus Magnesium 3.10 H Total Creatine Kinase 274 H Total Protein 8.5 H Urine WBC (Auto) 01/25/22 01/25/22 01/25/22 16:04 16:22 19:27 WBC RBC Hgb Hct MCH MCHC RDW Plt Count Lymph % (Auto) Dillon % (Auto) Lymph # (Auto) Dillon # (Auto) Seg Neutrophils % Seg Neutrophils # VBG pH 7.184 L* Sodium Potassium Chloride Carbon Dioxide 6 L* BUN 36 H Creatinine 1.6 H Glucose 690 H* POC Glucose > 600 H Hemoglobin A1c Calcium Phosphorus Magnesium Total Creatine Kinase Total Protein Urine WBC (Auto) 01/25/22 01/25/22 01/25/22 21:13 22:27 22:29 WBC RBC Hgb Hct MCH MCHC RDW Plt Count Lymph % (Auto) Dillon % (Auto) Lymph # (Auto) Dillon # (Auto) Seg Neutrophils % Seg Neutrophils # VBG pH Sodium 147 H Potassium Chloride 112.8 H Carbon Dioxide 7 L* BUN 38 H Creatinine 1.7 H Glucose 281 H POC Glucose 210 H 208 H Hemoglobin A1c Calcium 10.9 H Phosphorus Magnesium Total Creatine Kinase Total Protein Urine WBC (Auto) 01/25/22 01/26/22 01/26/22 23:21 00:13 00:51 WBC RBC Hgb Hct MCH MCHC RDW Plt Count Lymph % (Auto) Dillon % (Auto) Lymph # (Auto) Dillon # (Auto) Seg Neutrophils % Seg Neutrophils # VBG pH Sodium Potassium Chloride 112.5 H Carbon Dioxide 10 L BUN 37 H Creatinine 1.6 H Glucose 249 H POC Glucose 251 H 273 H Hemoglobin A1c Calcium 10.4 H Phosphorus Magnesium Total Creatine Kinase Total Protein Urine WBC (Auto) 01/26/22 01/26/22 01/26/22 01:06 02:04 03:02 WBC RBC Hgb Hct MCH MCHC RDW Plt Count Lymph % (Auto) Dillon % (Auto) Lymph # (Auto) Dillon # (Auto) Seg Neutrophils % Seg Neutrophils # VBG pH Sodium Potassium Chloride Carbon Dioxide BUN Creatinine Glucose POC Glucose 213 H 209 H 208 H Hemoglobin A1c Calcium Phosphorus Magnesium Total Creatine Kinase Total Protein Urine WBC (Auto) 01/26/22 01/26/22 01/26/22 04:13 04:17 05:12 WBC RBC Hgb Hct MCH MCHC RDW Plt Count Lymph % (Auto) Dillon % (Auto) Lymph # (Auto) Dillon # (Auto) Seg Neutrophils % Seg Neutrophils # VBG pH Sodium 149 H Potassium Chloride 116.9 H Carbon Dioxide 14 L BUN 35 H Creatinine 1.5 H Glucose 208 H POC Glucose 220 H 174 H Hemoglobin A1c Calcium 10.3 H Phosphorus Magnesium Total Creatine Kinase Total Protein Urine WBC (Auto) 01/26/22 01/26/22 01/26/22 06:01 06:56 07:42 WBC RBC Hgb Hct MCH MCHC RDW Plt Count Lymph % (Auto) Dillon % (Auto) Lymph # (Auto) Dillon # (Auto) Seg Neutrophils % Seg Neutrophils # VBG pH Sodium Potassium Chloride Carbon Dioxide BUN Creatinine Glucose POC Glucose 141 H 162 H 165 H Hemoglobin A1c Calcium Phosphorus Magnesium Total Creatine Kinase Total Protein Urine WBC (Auto) 01/26/22 01/26/22 01/26/22 10:13 11:25 13:08 WBC RBC Hgb Hct MCH MCHC RDW Plt Count Lymph % (Auto) Dillon % (Auto) Lymph # (Auto) Dillon # (Auto) Seg Neutrophils % Seg Neutrophils # VBG pH Sodium Potassium Chloride Carbon Dioxide BUN Creatinine Glucose POC Glucose 175 H 193 H 178 H Hemoglobin A1c Calcium Phosphorus Magnesium Total Creatine Kinase Total Protein Urine WBC (Auto) 01/26/22 01/26/22 01/26/22 13:21 13:21 14:20 WBC RBC 5.93 H Hgb 15.6 H Hct 50.9 H MCH 26 L MCHC RDW Plt Count 126 L Lymph % (Auto) Dillon % (Auto) Lymph # (Auto) Dillon # (Auto) Seg Neutrophils % Seg Neutrophils # VBG pH Sodium 146 H Potassium Chloride 116.8 H Carbon Dioxide 17 L BUN 26 H Creatinine 1.3 H Glucose 163 H POC Glucose 141 H Hemoglobin A1c Calcium Phosphorus 1.00 L D Magnesium Total Creatine Kinase Total Protein Urine WBC (Auto) 01/26/22 01/26/22 01/26/22 15:44 17:02 18:17 WBC RBC Hgb Hct MCH MCHC RDW Plt Count Lymph % (Auto) Dillon % (Auto) Lymph # (Auto) Dillon # (Auto) Seg Neutrophils % Seg Neutrophils # VBG pH Sodium Potassium Chloride Carbon Dioxide BUN Creatinine Glucose POC Glucose 216 H 264 H 213 H Hemoglobin A1c Calcium Phosphorus Magnesium Total Creatine Kinase Total Protein Urine WBC (Auto) 01/26/22 01/26/22 01/26/22 18:37 19:12 20:07 WBC RBC Hgb Hct MCH MCHC RDW Plt Count Lymph % (Auto) Dillon % (Auto) Lymph # (Auto) Dillon # (Auto) Seg Neutrophils % Seg Neutrophils # VBG pH Sodium 146 H 149 H Potassium Chloride 116.0 H 118.3 H Carbon Dioxide 18 L BUN 20 H Creatinine Glucose 133 H POC Glucose 116 H Hemoglobin A1c Calcium Phosphorus 1.20 L Magnesium Total Creatine Kinase Total Protein Urine WBC (Auto) 01/26/22 01/27/22 01/27/22 20:58 00:06 00:17 WBC RBC Hgb Hct MCH MCHC RDW Plt Count Lymph % (Auto) Dillon % (Auto) Lymph # (Auto) Dillon # (Auto) Seg Neutrophils % Seg Neutrophils # VBG pH Sodium Potassium 3.3 L Chloride 113.0 H Carbon Dioxide 16 L BUN Creatinine Glucose 207 H POC Glucose 113 H 203 H Hemoglobin A1c Calcium Phosphorus 1.80 L D Magnesium Total Creatine Kinase Total Protein Urine WBC (Auto) 01/27/22 01/27/22 01/27/22 04:23 05:31 08:21 WBC RBC Hgb Hct MCH MCHC RDW Plt Count Lymph % (Auto) Dillon % (Auto) Lymph # (Auto) Dillon # (Auto) Seg Neutrophils % Seg Neutrophils # VBG pH Sodium 146 H Potassium Chloride 113.8 H Carbon Dioxide 17 L BUN Creatinine Glucose 169 H POC Glucose 127 H 289 H Hemoglobin A1c Calcium Phosphorus Magnesium Total Creatine Kinase Total Protein Urine WBC (Auto) 01/27/22 01/27/22 01/27/22 11:45 16:19 21:33 WBC RBC Hgb Hct MCH MCHC RDW Plt Count Lymph % (Auto) Dillon % (Auto) Lymph # (Auto) Dillon # (Auto) Seg Neutrophils % Seg Neutrophils # VBG pH Sodium Potassium Chloride Carbon Dioxide BUN Creatinine Glucose POC Glucose 256 H 250 H 328 H Hemoglobin A1c Calcium Phosphorus Magnesium Total Creatine Kinase Total Protein Urine WBC (Auto) 01/28/22 01/28/22 01/28/22 04:31 04:31 07:17 WBC 4.1 L RBC Hgb Hct MCH MCHC RDW Plt Count 118 L Lymph % (Auto) Dillon % (Auto) Lymph # (Auto) Dillon # (Auto) Seg Neutrophils % Seg Neutrophils # VBG pH Sodium 146 H Potassium 3.1 L Chloride 112.2 H Carbon Dioxide 21 L BUN Creatinine Glucose 201 H POC Glucose 244 H Hemoglobin A1c Calcium Phosphorus Magnesium Total Creatine Kinase Total Protein Urine WBC (Auto) 01/28/22 01/28/22 01/28/22 11:30 16:11 21:37 WBC RBC Hgb Hct MCH MCHC RDW Plt Count Lymph % (Auto) Dillon % (Auto) Lymph # (Auto) Dillon # (Auto) Seg Neutrophils % Seg Neutrophils # VBG pH Sodium Potassium Chloride Carbon Dioxide BUN Creatinine Glucose POC Glucose 309 H 224 H 247 H Hemoglobin A1c Calcium Phosphorus Magnesium Total Creatine Kinase Total Protein Urine WBC (Auto) 01/29/22 01/29/22 01/29/22 04:24 04:24 07:31 WBC 4.0 L RBC Hgb Hct MCH 27 L MCHC RDW Plt Count 130 L Lymph % (Auto) Dillon % (Auto) Lymph # (Auto) Dillon # (Auto) Seg Neutrophils % Seg Neutrophils # VBG pH Sodium Potassium 3.2 L Chloride 109.7 H Carbon Dioxide BUN Creatinine Glucose 315 H POC Glucose 293 H Hemoglobin A1c Calcium Phosphorus Magnesium Total Creatine Kinase Total Protein Urine WBC (Auto) 01/29/22 11:12 WBC RBC Hgb Hct MCH MCHC RDW Plt Count Lymph % (Auto) Dillon % (Auto) Lymph # (Auto) Dillon # (Auto) Seg Neutrophils % Seg Neutrophils # VBG pH Sodium Potassium Chloride Carbon Dioxide BUN Creatinine Glucose POC Glucose 263 H Hemoglobin A1c Calcium Phosphorus Magnesium Total Creatine Kinase Total Protein Urine WBC (Auto) Allied health notes reviewed: nursing
== END 2022-01-29 12:10 | disposition home health service (06) | DRG 871 ==
LOC: ED 15:06 → CC1 19:41 → 3A 01-27 15:23
PROVIDERS: ADMIT Internal Medicine; ATTEND Student in an Organized Health Care Education/Training Program
DX: A41.9 Sepsis, unspecified organism (principal); G93.41 Metabolic encephalopathy; N17.0 Acute kidney failure with tubular necrosis; E11.10 Type 2 diabetes mellitus with ketoacidosis without coma; E87.0 Hyperosmolality and hypernatremia; N30.00 Acute cystitis without hematuria; K29.00 Acute gastritis without bleeding; I10 Essential (primary) hypertension; J45.909 Unspecified asthma, uncomplicated; Z98.51 Tubal ligation status; E66.9 Obesity, unspecified; Z91.018 Allergy to other foods; D75.1 Secondary polycythemia; E87.8 Other disorders of electrolyte and fluid balance, not elsewhere classified; E83.39 Other disorders of phosphorus metabolism; Z71.3 Dietary counseling and surveillance; E87.6 Hypokalemia; Z68.39 Body mass index [BMI] 39.0-39.9, adult
CPT/HCPCS: 36415; 74022; 80048; 80053; 80076; 81001; 82010; 82550; 82805; 82962; 83036; 83735; 84100; 84443; 84484; 85007; 85025; 85027; 87086; 93005; 93010; 94640; G0378; J3480; J7510; Q9967; J0696; J1644; J1815; J2765; J7050; J7120

== ENCOUNTER 2022-04-18 11:11 | Emergency (ER) | payer MEDICARE ==
[2022-04-18] MEDS ORDERED: SODIUM CHLORIDE 0.9% 1000 ML 1,000 ML IV ONE ×2 (11:13→16:00)
[2022-04-18] MEDS ORDERED: ALBUTEROL 2.5 MG/3 ML NEBU IH ONE (11:13)
[2022-04-18] MEDS ORDERED: methylPREDNISolone Sod Succinate 125 MG/2 ML INJ IV ONE (11:13)
[2022-04-18] MEDS ORDERED: IPRATROPIUM 0.02% NEBU 2.5 ML IH ONE (11:13)
[2022-04-18] MEDS ORDERED: MAGNESIUM SULFATE 2 GM/50 ML BAG IV ONE (11:13)
--- NOTE | 2022-04-18 11:15 | Emergency Department Report ---
<LAKSHMI PATE - Last Filed: 04/18/22 11:14> ED Asthma HPI - General Chief Complaint: Dyspnea/Respdistress Stated Complaint: ASTHMA ATTACK Time Seen by Provider: 04/18/22 11:12 - History of Present Illness MD Complaint: "asthma attack", wheezing - Related Data Home Medications Medication Instructions Recorded Confirmed Last Taken Mepolizumab [Nucala] 1 syr IJ QMONTH 05/09/20 02/24/22 02/21/22 amLODIPine 5 mg PO DAILY 01/27/22 02/24/22 02/23/22 09:00 Albuterol Sulfate [Proventil Hfa] 2 puff IH Q4H 02/24/22 02/24/22 Unknown Cetirizine HCl [Allergy] 10 mg PO QDAY 02/24/22 02/24/22 Unknown Cholecalciferol Vit D3 [Vitamin D3 1,000 unit PO QDAY 02/24/22 02/24/22 Unknown 1,000 UNIT TAB] Previous Rx's Medication Instructions Recorded Last Taken Type Fluticasone/Vilanterol [Breo 25 mcg IH DAILY #1 10/25/20 02/23/22 10:00 Rx Ellipta 200-25 Mcg INH] Losartan [Cozaar] 25 mg PO QDAY #30 tablet 01/29/22 02/23/22 08:00 Rx Insulin Glargine,Hum.rec.anlog 25 unit SQ BID 30 Days #1 box 02/03/22 02/23/22 21:00 Rx [Lantus Solostar] Insulin Regular, Human [Novolin R 100 unit SQ DAILY PRN 30 Days #1 02/03/22 02/23/22 10:00 Rx Flexpen] box Montelukast [Singulair] 10 mg PO QPM #30 tablet 02/27/22 Unknown Rx metFORMIN [Glucophage] 850 mg PO BIDDIAB tablet 02/27/22 Unknown Rx predniSONE 6 tab PO QDAY #39 tab 02/27/22 Unknown Rx predniSONE [Deltasone] 50 mg PO QDAY 5 Days #5 tab 04/18/22 Unknown Rx Allergies Allergy/AdvReac Type Severity Reaction Status Date / Time wheat Allergy Unknown Verified 02/24/22 12:08 ED Review of Systems Comment: All other systems reviewed and negative ED Past Medical Hx - Past Medical History Hx Hypertension: Yes Hx Congestive Heart Failure: No Hx Diabetes: Yes Hx Asthma: Yes Hx COPD: Yes (multiple admissions COPD exacerbation) Hx Tuberculosis: No Hx HIV: No Additional medical history: (5) previous intubations due to asthma complications - Surgical History Additional Surgical History: tubal ligation - Social History Smoking Status: Never Smoker - Medications Home Medications: Home Medications Medication Instructions Recorded Confirmed Last Taken Type Mepolizumab [Nucala] 1 syr IJ QMONTH 05/09/20 02/24/22 02/21/22 History Fluticasone/Vilanterol [Breo 25 mcg IH DAILY #1 10/25/20 02/24/22 02/23/22 10:00 Rx Ellipta 200-25 Mcg INH] amLODIPine 5 mg PO DAILY 01/27/22 02/24/22 02/23/22 09:00 History Losartan [Cozaar] 25 mg PO QDAY #30 tablet 01/29/22 02/24/22 02/23/22 08:00 Rx Insulin Glargine,Hum.rec.anlog 25 unit SQ BID 30 Days #1 box 02/03/22 02/24/22 02/23/22 21:00 Rx [Lantus Solostar] Insulin Regular, Human [Novolin R 100 unit SQ DAILY PRN 30 Days #1 02/03/22 02/24/22 02/23/22 10:00 Rx Flexpen] box Albuterol Sulfate [Proventil Hfa] 2 puff IH Q4H 02/24/22 02/24/22 Unknown History Cetirizine HCl [Allergy] 10 mg PO QDAY 02/24/22 02/24/22 Unknown History Cholecalciferol Vit D3 [Vitamin D3 1,000 unit PO QDAY 02/24/22 02/24/22 Unknown History 1,000 UNIT TAB] Montelukast [Singulair] 10 mg PO QPM #30 tablet 02/27/22 Unknown Rx metFORMIN [Glucophage] 850 mg PO BIDDIAB tablet 02/27/22 Unknown Rx predniSONE 6 tab PO QDAY #39 tab 02/27/22 Unknown Rx predniSONE [Deltasone] 50 mg PO QDAY 5 Days #5 tab 04/18/22 Unknown Rx ED Physical Exam - General General appearance: alert, in distress - Head Head exam: Present: atraumatic, normocephalic - Eye Eye exam: Present: normal appearance - ENT ENT exam: Present: mucous membranes moist - Neck Neck exam: Present: normal inspection - Respiratory Respiratory exam: Present: normal lung sounds bilaterally, wheezes, accessory muscle use, decreased breath sounds, prolonged expiratory. Absent: respiratory distress, rales - Cardiovascular Cardiovascular Exam: Present: regular rate, normal rhythm. Absent: systolic murmur, diastolic murmur, rubs, gallop - GI/Abdominal GI/Abdominal exam: Present: soft, normal bowel sounds. Absent: distended, tenderness, hyperactive bowel sounds, hypoactive bowel sounds - Extremities Exam Extremities exam: Present: normal inspection - Back Exam Back exam: Present: normal inspection - Neurological Exam Neurological exam: Present: alert, oriented X3 - Psychiatric Psychiatric exam: Present: normal affect, normal mood - Skin Skin exam: Present: warm, dry, intact, normal color. Absent: rash ED Disposition Clinical Impression: Asthma attack Disposition: HOME / SELF CARE / HOMELESS Condition: Stable Instructions: Asthma, Adult Prescriptions: predniSONE [Deltasone] 50 mg PO QDAY 5 Days #5 tab Print Language: NEPALESE <JENELLE OLEARY - Last Filed: 04/18/22 14:55> ED Asthma HPI - General PUI?: No Source: patient Mode of arrival: Ambulatory Limitations: No Limitations - History of Present Illness MD Complaint: "asthma attack" -: Gradual, week(s) Asthma History: previously intubated Severity: moderate Context: other (Used to be on 15 mg of prednisone daily but has not taken that in a while) Associated Symptoms: none Treatments Prior to Arrival: inhaled bronchodilator (Had 5 nebulizer treatments at home prior to arrival) - Related Data Current Asthma Therapy: inhaled bronchodilator ED Review of Systems ROS: Stated complaint: ASTHMA ATTACK Other details as noted in HPI Other: All other systems reviewed and negative. ED Physical Exam - Other Other exam information: Physical Exam: Constitutional: AAOX3. No acute distress. No diaphoresis. Obese HENT: Normocephalic. Pupils equal and reactive. No throat edema or erythema. Neck: No neck rigidity or tenderness. Cardiovascular: Heart sounds: No murmur. Normal rate and regular rhythm. Pulses: Intact distal pulses. Lungs: Diffuse wheezing with prolonged expiratory phase Chest wall: No tenderness. Abdominal: No distension. No mass/pulsatile mass. No abdominal tenderness, guarding nor rebound. Musculoskeletal: Normal range of motion. No edema, No calf TTP. Skin: Warm and dry. Neurological: Alert and oriented to person, place, and time. Psychiatric: Mood and affect normal. Normal cognition and memory. Normal judgement. ED Course Vital Signs 04/18/22 04/18/22 11:15 12:01 Temperature 98.2 F Pulse Rate 121 H Pulse Rate [ 116 H Anterior Bilateral Throughout] Respiratory 16 Rate Respiratory 24 Rate [Anterior Bilateral Throughout] Blood Pressure 179/86 [Left] O2 Sat by Pulse 98 Oximetry - Reevaluation(s) Reevaluation #1: 04/18/22 14:53 The patient did good with the steroids and nebulizer that we gave her. On reevaluation she was saturating 100% on room air. The chest x-ray and chemistries as well as CBC were within normal limits. We will be discharging her on bronchodilators and steroids and she will return if any other issues arise otherwise follow-up with her PCP. ED Medical Decision Making - Lab Data Result diagrams: 04/18/22 12:28 04/18/22 12:28 Critical care attestation.: If time is entered above; I have spent that time in minutes in the direct care of this critically ill patient, excluding procedure time. ED Disposition Is pt being admited?: No Does the pt Need Aspirin: No Time of Disposition: 15:30
[2022-04-18 11:17] VITALS: BP 179/86
[2022-04-18 12:47] LABS: Basophils % (Auto) 0.3 % (0.0-1.8); Eosinophils % (Auto) 0.3 % (0.0-4.3); Hematocrit 37.2 % (30.3-42.9); Hemoglobin 11.8 gm/dl (10.1-14.3); Lymphocytes # (Auto) 0.7 K/mm3 (1.2-5.4); Lymphocytes % (Auto) 7.9 % (13.4-35.0); Mean Corpuscular HGB Conc 32 % (30-34); Mean Corpuscular Volume 84 fl (79-97); Monocytes # (Auto) 0.7 K/mm3 (0.0-0.8); Monocytes % (Auto) 7.3 % (0.0-7.3); Platelet Count 226 K/mm3 (140-440); Red Blood Count 4.41 M/mm3 (3.65-5.03); Red Cell Distribution Width 14.7 % (13.2-15.2)
[2022-04-18 13:09] LABS: BUN/Creatinine Ratio 12; Blood Urea Nitrogen 11 mg/dL (7-17); Hemolysis Index 4
--- NOTE | 2022-04-18 13:38 | XRay Report ---
CHEST 2 VIEWS INDICATION / CLINICAL INFORMATION: Asthma. COMPARISON: 02/24/2022 FINDINGS: SUPPORT DEVICES: None. HEART / MEDIASTINUM: No significant abnormality. LUNGS / PLEURA: No significant pulmonary or pleural abnormality. No pneumothorax. ADDITIONAL FINDINGS: No significant additional findings. IMPRESSION: 1. No acute findings. Signer Name: Raymond Ramirez MD Signed: 04/18/2022 1:34 PM Workstation Name: [id number]
[2022-04-18] MEDS ORDERED: methylPREDNISolone Sod Succinate 125 MG/2 ML INJ IV SCH (15:00)
[2022-04-18] MEDS ORDERED: MAGNESIUM SULFATE 2 GM/50 ML BAG IV SCH (15:00)
[2022-04-18] MEDS ORDERED: IPRATROPIUM/ALBUTEROL SULFATE 3 ML AMPUL.NEB IH ONE (15:48)
[2022-04-18] MEDS ORDERED: IPRATROPIUM/ALBUTEROL SULFATE 3 ML AMPUL.NEB IH SCH (20:00)
== END 2022-04-18 17:46 | disposition home or self-care (01) ==
LOC: ED 11:11
DX: J45.909 Unspecified asthma, uncomplicated (principal); I10 Essential (primary) hypertension; E11.9 Type 2 diabetes mellitus without complications; Z91.02 Food additives allergy status; Z98.890 Other specified postprocedural states; Z79.899 Other long term (current) drug therapy
CPT/HCPCS: 36415; 71046; 80048; 85025; 94640; 96365; 96367; 99284; J2930; J3475; J7030; 94644; 96375

== ENCOUNTER 2022-06-19 00:44 | Inpatient (IN) | payer OTHER, MEDICARE ==
[2022-06-19] MEDS ORDERED: ALBUTEROL 2.5 MG/3 ML NEBU IH ONE ×2 (01:04→03:23)
[2022-06-19] MEDS ORDERED: IPRATROPIUM 0.02% NEBU 2.5 ML IH ONE (01:05)
--- NOTE | 2022-06-19 01:19 | Emergency Department Report ---
ED Shortness of Breath HPI - General Stated Complaint: ASTHMA ATTACK Time Seen by Provider: 06/19/22 01:02 - History of Present Illness Initial Comments: 51-year-old female history of asthma here with complaints of severe shortness of breath for the past few days. This worsened on today. She had to use her inhaler multiple times. She denies any cough, fever, sick contacts. She states this feels like her previous asthma exacerbations. Patient has required intubation several times. - Related Data Home Medications Medication Instructions Recorded Confirmed Last Taken Mepolizumab [Nucala] 1 syr IJ QMONTH 05/09/20 02/24/22 02/21/22 amLODIPine 5 mg PO DAILY 01/27/22 02/24/22 02/23/22 09:00 Albuterol Sulfate [Proventil Hfa] 2 puff IH Q4H 02/24/22 02/24/22 Unknown Cetirizine HCl [Allergy] 10 mg PO QDAY 02/24/22 02/24/22 Unknown Cholecalciferol Vit D3 [Vitamin D3 1,000 unit PO QDAY 02/24/22 02/24/22 Unknown 1,000 UNIT TAB] Previous Rx's Medication Instructions Recorded Last Taken Type Fluticasone/Vilanterol [Breo 25 mcg IH DAILY #1 10/25/20 02/23/22 10:00 Rx Ellipta 200-25 Mcg INH] Losartan [Cozaar] 25 mg PO QDAY #30 tablet 01/29/22 02/23/22 08:00 Rx Insulin Glargine,Hum.rec.anlog 25 unit SQ BID 30 Days #1 box 02/03/22 02/23/22 21:00 Rx [Lantus Solostar] Insulin Regular, Human [Novolin R 100 unit SQ DAILY PRN 30 Days #1 02/03/22 04/0 02/11 10:00 Rx Flexpen] box Montelukast [Singulair] 10 mg PO QPM #30 tablet 02/27/22 Unknown Rx metFORMIN [Glucophage] 850 mg PO BIDDIAB tablet 02/27/22 Unknown Rx predniSONE 6 tab PO QDAY #39 tab 02/27/22 Unknown Rx predniSONE [Deltasone] 50 mg PO QDAY 5 Days #5 tab 04/18/22 Unknown Rx Allergies Allergy/AdvReac Type Severity Reaction Status Date / Time wheat Allergy Unknown Verified 02/24/22 12:08 ED Review of Systems ROS: Stated complaint: ASTHMA ATTACK Other details as noted in HPI Comment: Unobtainable due to pts medical conditions ED Past Medical Hx - Past Medical History Hx Hypertension: Yes Hx Congestive Heart Failure: No Hx Diabetes: Yes Hx Asthma: Yes Hx COPD: Yes (multiple admissions COPD exacerbation) Hx Tuberculosis: No Hx HIV: No Additional medical history: (5) previous intubations due to asthma complications - Surgical History Additional Surgical History: tubal ligation - Social History Smoking Status: Never Smoker Substance Use Type: None - Medications Home Medications: Home Medications Medication Instructions Recorded Confirmed Last Taken Type Mepolizumab [Nucala] 1 syr IJ QMONTH 05/09/20 02/24/22 02/21/22 History Fluticasone/Vilanterol [Breo 25 mcg IH DAILY #1 10/25/20 02/24/22 02/23/22 10:00 Rx Ellipta 200-25 Mcg INH] amLODIPine 5 mg PO DAILY 01/27/22 02/24/22 02/23/22 09:00 History Losartan [Cozaar] 25 mg PO QDAY #30 tablet 01/29/22 02/24/22 02/23/22 08:00 Rx Insulin Glargine,Hum.rec.anlog 25 unit SQ BID 30 Days #1 box 02/03/22 02/24/22 02/23/22 21:00 Rx [Lantus Solostar] Insulin Regular, Human [Novolin R 100 unit SQ DAILY PRN 30 Days #1 02/03/22 02/24/22 02/23/22 10:00 Rx Flexpen] box Albuterol Sulfate [Proventil Hfa] 2 puff IH Q4H 02/24/22 02/24/22 Unknown History Cetirizine HCl [Allergy] 10 mg PO QDAY 02/24/22 02/24/22 Unknown History Cholecalciferol Vit D3 [Vitamin D3 1,000 unit PO QDAY 02/24/22 02/24/22 Unknown History 1,000 UNIT TAB] Montelukast [Singulair] 10 mg PO QPM #30 tablet 02/27/22 Unknown Rx metFORMIN [Glucophage] 850 mg PO BIDDIAB tablet 02/27/22 Unknown Rx predniSONE 6 tab PO QDAY #39 tab 02/27/22 Unknown Rx predniSONE [Deltasone] 50 mg PO QDAY 5 Days #5 tab 04/18/22 Unknown Rx ED Physical Exam - General General appearance: alert, in distress - Head Head exam: Present: atraumatic, normocephalic - Eye Eye exam: Present: normal appearance - ENT ENT exam: Present: mucous membranes moist - Neck Neck exam: Present: normal inspection - Respiratory Respiratory exam: Present: respiratory distress, wheezes, accessory muscle use. Absent: rales - Cardiovascular Cardiovascular Exam: Present: tachycardia. Absent: systolic murmur, diastolic murmur, rubs, gallop - GI/Abdominal GI/Abdominal exam: Present: soft. Absent: distended, tenderness - Rectal Rectal exam: Present: deferred - Extremities Exam Extremities exam: Present: normal inspection - Back Exam Back exam: Present: normal inspection - Neurological Exam Neurological exam: Present: alert, oriented X3 - Psychiatric Psychiatric exam: Present: normal affect, normal mood - Skin Skin exam: Present: warm, dry, intact, normal color. Absent: rash ED Course Vital Signs 06/19/22 06/19/22 06/19/22 00:59 01:00 01:10 Temperature Pulse Rate 140 H 138 H Pulse Rate [ 122 H Anterior Bilateral Throughout] Respiratory 24 23 Rate Respiratory 18 Rate [Anterior Bilateral Throughout] Blood Pressure O2 Sat by Pulse 96 96 Oximetry 06/19/22 06/19/22 06/19/22 01:16 01:25 01:30 Temperature 97.9 F Pulse Rate 125 H 127 H 123 H Pulse Rate [ Anterior Bilateral Throughout] Respiratory 21 14 18 Rate Respiratory Rate [Anterior Bilateral Throughout] Blood Pressure 199/95 199/95 199/95 O2 Sat by Pulse 100 100 100 Oximetry 06/19/22 06/19/22 06/19/22 01:46 02:00 02:16 Temperature Pulse Rate 121 H 129 H 129 H Pulse Rate [ Anterior Bilateral Throughout] Respiratory 15 22 18 Rate Respiratory Rate [Anterior Bilateral Throughout] Blood Pressure 199/95 172/70 172/70 O2 Sat by Pulse 100 98 96 Oximetry 06/19/22 06/19/22 06/19/22 02:30 02:46 02:47 Temperature Pulse Rate 120 H 121 H Pulse Rate [ Anterior Bilateral Throughout] Respiratory 22 19 28 H Rate Respiratory Rate [Anterior Bilateral Throughout] Blood Pressure 172/70 136/80 O2 Sat by Pulse 96 97 94 Oximetry - Reevaluation(s) Reevaluation #1: 06/19/22 03:27 Patient is still with significant wheezing and her breath sounds diminished. At this time I asked patient if we can proceed with intubation at this time patient refuses. She would like to continue on BiPAP and try a additional continuous nebulizer. She is tachycardic so will attempt it. I also discussed use of epi, terbutaline or ketamine at this time patient is refusing those medicines. ED Medical Decision Making - Lab Data Result diagrams: 06/19/22 01:18 06/19/22 01:18 - Radiology Data Radiology results: report reviewed, image reviewed - Medical Decision Making This is a 51-year-old female presenting the emergency department with complaint of asthma exacerbation. Plan for continuous albuterol treatment. Patient may require BiPAP or intubation if her respiratory status does not worsen. Currently she is tachycardic, tachypneic, has diffuse wheezing. She is already received albuterol, magnesium and Solu-Medrol. Plan for BiPAP if her symptoms do not improve. Critical care attestation.: If time is entered above; I have spent that time in minutes in the direct care of this critically ill patient, excluding procedure time. ED Disposition Condition: Stable
[2022-06-19 01:31] LABS: Hematocrit 39.5 % (30.3-42.9); Hemoglobin 12.7 gm/dl (10.1-14.3); Mean Corpuscular Volume 85 fl (79-97); Red Blood Count 4.67 M/mm3 (3.65-5.03)
[2022-06-19 01:32] LABS: Mean Corpuscular HGB Conc 32 % (30-34); Platelet Count 232 K/mm3 (140-440); Red Cell Distribution Width 15.5 % (13.2-15.2)
--- NOTE | 2022-06-19 01:33 | XRay Report ---
CHEST 1 VIEW INDICATION / CLINICAL INFORMATION: Dyspnea. COMPARISON: Chest x-ray 04/18/2022 FINDINGS: SUPPORT DEVICES: None. HEART / MEDIASTINUM: Heart size is within normal limits. Mediastinal contour demonstrates no signific ant abnormality. LUNGS / PLEURA: Lungs are clear for degree of inspiration and technique utilized. BONES: No significant osseous abnormality. ADDITIONAL FINDINGS: No significant additional findings. IMPRESSION: 1. No active cardiopulmonary disease. Signer Name: Latrell Paz II, MD Signed: 06/19/2022 1:29 AM Workstation Name: [id number]
[2022-06-19 01:40] LABS: INR 0.85 (0.87-1.13)
[2022-06-19 01:55] LABS: Alanine Aminotransferase 31 units/L (7-56); Albumin 4.1 g/dL (3.9-5); BUN/Creatinine Ratio 14; Blood Urea Nitrogen 13 mg/dL (7-17); Calcium 8.9 mg/dL (8.4-10.2); Hemolysis Index 17
[2022-06-19 02:27] LABS: Basophils % (Manual) 0 % (0.0-1.8); Eosinophils % (Manual) 0 % (0.0-4.3); Total Cells Counted 100
[2022-06-19 02:28] LABS: Platelet Estimate Consistent w Auto
[2022-06-19 03:40] LABS: Bilirubin,Urine Negative (Negative); Blood,Urine Small (Negative); Color,Urine Yellow (Yellow); Protein,Urine <30 mg dL mg/dL (Negative); Urobilinogen,Urine 0.2 mg/dL (<2.0)
[2022-06-19 03:41] LABS: Bacteria,Urine 1+ /HPF (Negative); Mucus,Urine 2+ /HPF
[2022-06-19] MEDS ORDERED: methylPREDNISolone Sod Succinate 125 MG/2 ML INJ IV ONE (03:44)
[2022-06-19] MEDS ORDERED: SODIUM CHLORIDE 0.9% 1000 ML 1,000 ML IV ONE (04:11)
[2022-06-19] MEDS ORDERED: cefTRIAXone/NS 1 GM/50 ML 1 GM/50 ML BAG IV ONE (04:11)
[2022-06-19] MEDS ORDERED: MORPHINE 4 MG/1 ML INJ IV PRN (04:45)
[2022-06-19] MEDS ORDERED: MORPHINE 2 MG/1 ML INJ IV PRN (04:45)
[2022-06-19] MEDS ORDERED: ALBUTEROL 2.5 MG/3 ML NEBU IH PRN (04:45)
[2022-06-19] MEDS ORDERED: ACETAMINOPHEN 325 MG TAB PO PRN (04:45)
[2022-06-19] MEDS ORDERED: ONDANSETRON 4 MG/2 ML INJ IV PRN (04:45)
[2022-06-19] MEDS ORDERED: DEXTROSE 50% IN WATER (25GM) 50 ML SYRINGE IV PRN (04:49)
[2022-06-19 04:51] LABS: ABG Base Excess -1.9 mmol/L (-2.0-3.0); ABG HCO3 22.9 mmol/L (20.0-26.0); ABG Methemoglobin 0.5 % (0.0-1.5); ABG Oxygen Saturation 97.5 % (95.0-99.0); ABG PCO2 39.1 mm Hg; ABG PH 7.385 pH Units (7.350-7.450); ABG PO2 97.2 mm Hg (80.0-90.0)
--- NOTE | 2022-06-19 04:54 | History and Physical Report ---
History of Present Illness Date of examination: 06/19/22 Date of admission: 06/19/22 Chief complaint: Shortness of breath Acute asthma exacerbation History of present illness: 51-year-old female history of asthma an history of multiple intubation and multiple admission was brought to the emergency room because of severe shortness of breath for the past few days. This worsened on today. She had to use her inhaler multiple times. She denies any cough, fever, sick contacts. She states this feels like her previous asthma exacerbations. Patient has required int ubation several times. In the emergency room patient is found to have acute asthma exacerbation, WBC is 12.4 , so going to admit the patient Past History Past Medical History: hypertension, other (Asthma intubated multiple times) Past Surgical History: Other (Tubal ligation) Social history: no significant social history Family history: hypertension Medications and Allergies Allergies Allergy/AdvReac Type Severity Reaction Status Date / Time wheat Allergy Unknown Verified 02/24/22 12:08 Home Medications Medication Instructions Recorded Confirmed Last Taken Type Mepolizumab [Nucala] 1 syr IJ QMONTH 05/09/20 02/24/22 02/21/22 History Fluticasone/Vilanterol [Breo 25 mcg IH DAILY #1 10/25/20 02/24/22 02/23/22 10:00 Rx Ellipta 200-25 Mcg INH] amLODIPine 5 mg PO DAILY 01/27/22 02/24/22 02/23/22 09:00 History Losartan [Cozaar] 25 mg PO QDAY #30 tablet 01/29/22 02/24/22 02/23/22 08:00 Rx Insulin Glargine,Hum.rec.anlog 25 unit SQ BID 30 Days #1 box 02/03/22 02/24/22 02/23/22 21:00 Rx [Lantus Solostar] Insulin Regular, Human [Novolin R 100 unit SQ DAILY PRN 30 Days #1 02/03/22 02/24/22 02/23/22 10:00 Rx Flexpen] box Albuterol Sulfate [Proventil Hfa] 2 puff IH Q4H 02/24/22 02/24/22 Unknown History Cetirizine HCl [Allergy] 10 mg PO QDAY 02/24/22 02/24/22 Unknown History Cholecalciferol Vit D3 [Vitamin D3 1,000 unit PO QDAY 02/24/22 02/24/22 Unknown History 1,000 UNIT TAB] Montelukast [Singulair] 10 mg PO QPM #30 tablet 02/27/22 Unknown Rx metFORMIN [Glucophage] 850 mg PO BIDDIAB tablet 02/27/22 Unknown Rx predniSONE 6 tab PO QDAY #39 tab 02/27/22 Unknown Rx predniSONE [Deltasone] 50 mg PO QDAY 5 Days #5 tab 04/18/22 Unknown Rx Active Meds: Active Medications Acetaminophen (Acetaminophen 325 Mg Tab) 650 mg PO Q4H PRN PRN Reason: Pain MILD(1-3)/Fever >100.5/BOOKER Albuterol (Albuterol 2.5 Mg/3 Ml Nebu) 2.5 mg IH Q3HRT PRN PRN Reason: Shortness Of Breath Albuterol (Albuterol 8.5 Gm Mdi Inhalation) 2 puff IH Q4H JOSE D Albuterol/Ipratropium (Ipratropium/Albuterol Sulfate 3 Ml Ampul.Neb) 1 ampul IH Q6HRT JOSE D Amlodipine Besylate (Amlodipine 5 Mg Tab) 5 mg PO DAILY JOSE D Budesonide (Budesonide 0.5 Mg/2 Ml Nebu) 0.5 mg IH Q12HRT JOSE D Cetirizine HCl (Cetirizine 10 Mg Tab) 10 mg PO QDAY [facility] Dextrose (Dextrose 50% In Water (25gm) 50 Ml Syringe) 50 ml IV Q30MIN PRN; Protocol PRN Reason: Hypoglycemia Famotidine (Famotidine 20 Mg Tab) 20 mg PO BID [facility] Heparin Sodium (Porcine) (Heparin 5,000 Unit/1 Ml Vial) 5,000 unit SUB-Q Q12HR [facility] Sodium Chloride (Nacl 0.9% 1000 Ml) 1,000 mls @ 999 mls/hr IV BOLUS ONE Stop: 06/19/22 05:11 Insulin Human Lispro (Insulin Lispro 100 Unit/Ml) 0 unit SUB-Q ACHS JOSE D; Protocol Losartan Potassium (Losartan 25 Mg Tab) 25 mg PO QDAY [facility] Methylprednisolone Sodium Succinate (Methylprednisolone Sod Succinate 40 Mg/1 Ml Inj) 40 mg IV Q6HR [facility] Miscellaneous Medication (Fluticasone/Vilanterol [Breo Ellipta 200-25 Mcg Inh]) 25 mcg IH DAILY JOSE D Miscellaneous Medication (Insulin Glargine,Hum.Rec.Anlog [Lantus Solostar]) 25 unit SQ BID JOSE D Miscellaneous Medication (Mepolizumab [Nucala]) 1 syr IJ QMONTH JOSE D Montelukast Sodium (Montelukast 10 Mg Tab) 10 mg PO QHS JOSE D Montelukast Sodium (Montelukast 10 Mg Tab) 10 mg PO QPM JOSE D Morphine Sulfate (Morphine 2 Mg/1 Ml Inj) 2 mg IV Q4H PRN PRN Reason: Pain, Moderate (4-6) Morphine Sulfate (Morphine 4 Mg/1 Ml Inj) 4 mg IV Q4H PRN PRN Reason: Pain , Severe (7-10) Ondansetron HCl (Ondansetron 4 Mg/2 Ml Inj) 4 mg IV Q8H PRN PRN Reason: Nausea And Vomiting Sodium Chloride (Sodium Chloride 0.9% 10 Ml Flush Syringe) 10 ml IV BID JOSE D Sodium Chloride (Sodium Chloride 0.9% 10 Ml Flush Syringe) 10 ml IV PRN PRN PRN Reason: LINE FLUSH Review of Systems All systems: negative Respiratory: cough, shortness of breath, dyspnea on exertion, wheezing Exam - Constitutional Vitals: Temp Pulse Resp BP Pulse Ox 97.9 F 125 H 19 146/85 99 06/19/22 01:25 06/19/22 04:27 06/19/22 04:27 06/19/22 04:27 06/19/22 04:27 General appearance: Present: no acute distress, well-nourished - EENT Eyes: Present: PERRL ENT: hearing intact, clear oral mucosa - Neck Neck: Present: supple, normal ROM - Respiratory Respiratory effort: normal Respiratory: bilateral: wheezing - Cardiovascular Heart Sounds: Present: S1 & S2. Absent: rub, click - Extremities Extremities: pulses symmetrical, No edema Peripheral Pulses: within normal limits - Abdominal General gastrointestinal: Present: soft, non-tender, non-distended, normal bowel sounds Female genitourinary: Present: normal - Integumentary Integumentary: Present: clear, warm, dry - Musculoskeletal Musculoskeletal: gait normal, strength equal bilaterally - Psychiatric Psychiatric: appropriate mood/affect, intact judgment & insight - Neurologic Neurologic: CNII-XII intact, moves all extremities HEART Score - HEART Score Troponin: Troponin T < 0.010 ng/mL (0.00-0.029) 06/19/22 01:18 Results - Labs CBC & Chem 7: 06/19/22 01:18 06/19/22 01:18 Labs: Laboratory Last Values WBC 12.4 K/mm3 (4.5-11.0) H 06/19/22 01:18 RBC 4.67 M/mm3 (3.65-5.03) 06/19/22 01:18 Hgb 12.7 gm/dl (10.1-14.3) 06/19/22 01:18 Hct 39.5 % (30.3-42.9) 06/19/22 01:18 MCV 85 fl (79-97) 06/19/22 01:18 MCH 27 pg (28-32) L 06/19/22 01:18 MCHC 32 % (30-34) 06/19/22 01:18 RDW 15.5 % (13.2-15.2) H 06/19/22 01:18 Plt Count 232 K/mm3 (140-440) 06/19/22 01:18 Add Manual Diff Complete 06/19/22 01:18 Total Counted 100 06/19/22 01:18 Seg Neuts % (Manual) 84.0 % (40.0-70.0) H 06/19/22 01:18 Band Neutrophils % 0 % 06/19/22 01:18 Lymphocytes % (Manual) 12.0 % (13.4-35.0) L 06/19/22 01:18 Reactive Lymphs % (Man) 0 % 06/19/22 01:18 Monocytes % (Manual) 3.0 % (0.0-7.3) 06/19/22 01:18 Eosinophils % (Manual) 0 % (0.0-4.3) 06/19/22 01:18 Basophils % (Manual) 0 % (0.0-1.8) 06/19/22 01:18 Metamyelocytes % 1.0 % 06/19/22 01:18 Myelocytes % 0 % 06/19/22 01:18 Promyelocytes % 0 % 06/19/22 01:18 Blast Cells % 0 % 06/19/22 01:18 Nucleated RBC % Not Reportable 06/19/22 01:18 Seg Neutrophils # Man 10.4 K/mm3 (1.8-7.7) H 06/19/22 01:18 Band Neutrophils # 0.0 K/mm3 06/19/22 01:18 Lymphocytes # (Manual) 1.5 K/mm3 (1.2-5.4) 06/19/22 01:18 Abs React Lymphs (Man) 0.0 K/mm3 06/19/22 01:18 Monocytes # (Manual) 0.4 K/mm3 (0.0-0.8) 06/19/22 01:18 Eosinophils # (Manual) 0.0 K/mm3 (0.0-0.4) 06/19/22 01:18 Basophils # (Manual) 0.0 K/mm3 (0.0-0.1) 06/19/22 01:18 Metamyelocytes # 0.1 K/mm3 06/19/22 01:18 Myelocytes # 0.0 K/mm3 06/19/22 01:18 Promyelocytes # 0.0 K/mm3 06/19/22 01:18 Blast Cells # 0.0 K/mm3 06/19/22 01:18 WBC Morphology Not Reportable 06/19/22 01:18 Hypersegmented Neuts Not Reportable 06/19/22 01:18 Hyposegmented Neuts Not Reportable 06/19/22 01:18 Hypogranular Neuts Not Reportable 06/19/22 01:18 Smudge Cells Not Reportable 06/19/22 01:18 Toxic Granulation Not Reportable 06/19/22 01:18 Toxic Vacuolation Not Reportable 06/19/22 01:18 Dohle Bodies Not Reportable 06/19/22 01:18 Pelger-Huet Anomaly Not Reportable 06/19/22 01:18 Elvin Rods Not Reportable 06/19/22 01:18 Platelet Estimate Consistent w auto 06/19/22 01:18 Clumped Platelets Not Reportable 06/19/22 01:18 Plt Clumps, EDTA Not Reportable 06/19/22 01:18 Large Platelets Not Reportable 06/19/22 01:18 Giant Platelets Not Reportable 06/19/22 01:18 Platelet Satelliting Not Reportable 06/19/22 01:18 Plt Morphology Comment Not Reportable 06/19/22 01:18 RBC Morphology Not Reportable 06/19/22 01:18 Dimorphic RBCs Not Reportable 06/19/22 01:18 Polychromasia Not Reportable 06/19/22 01:18 Hypochromasia Not Reportable 06/19/22 01:18 Poikilocytosis Not Reportable 06/19/22 01:18 Anisocytosis Not Reportable 06/19/22 01:18 Microcytosis Not Reportable 06/19/22 01:18 Macrocytosis Not Reportable 06/19/22 01:18 Spherocytes Not Reportable 06/19/22 01:18 Pappenheimer Bodies Not Reportable 06/19/22 01:18 Sickle Cells Not Reportable 06/19/22 01:18 Target Cells Not Reportable 06/19/22 01:18 Tear Drop Cells Not Reportable 06/19/22 01:18 Ovalocytes Not Reportable 06/19/22 01:18 Helmet Cells Not Reportable 06/19/22 01:18 [place] Bodies Not Reportable 06/19/22 01:18 [place] Rings Not Reportable 06/19/22 01:18 [place] Cells Not Reportable 06/19/22 01:18 Bite Cells Not Reportable 06/19/22 01:18 Crenated Cell Not Reportable 06/19/22 01:18 Elliptocytes Not Reportable 06/19/22 01:18 Acanthocytes (Spur) Not Reportable 06/19/22 01:18 Rouleaux Not Reportable 06/19/22 01:18 Hemoglobin C Crystals Not Reportable 06/19/22 01:18 Schistocytes Not Reportable 06/19/22 01:18 Malaria parasites Not Reportable 06/19/22 01:18 Esan Bodies Not Reportable 06/19/22 01:18 Hem Pathologist Commnt No 06/19/22 01:18 PT 12.5 Sec. (12.2-14.9) 06/19/22 01:18 INR 0.85 (0.87-1.13) L 06/19/22 01:18 Sodium 140 mmol/L (137-145) 06/19/22 01:18 Potassium 3.9 mmol/L (3.6-5.0) 06/19/22 01:18 Chloride 102.8 mmol/L (98-107) 06/19/22 01:18 Carbon Dioxide 23 mmol/L (22-30) 06/19/22 01:18 Anion Gap 18 mmol/L 06/19/22 01:18 BUN 13 mg/dL (7-17) 06/19/22 01:18 Creatinine 0.9 mg/dL (0.6-1.2) 06/19/22 01:18 Estimated GFR > 60 ml/min 06/19/22 01:18 BUN/Creatinine Ratio 14 % 06/19/22 01:18 Glucose 136 mg/dL (65-100) H 06/19/22 01:18 Lactic Acid 1.50 mmol/L (0.7-2.0) 06/19/22 01:18 Calcium 8.9 mg/dL (8.4-10.2) 06/19/22 01:18 Magnesium 2.80 mg/dL (1.7-2.3) H 06/19/22 01:18 Total Bilirubin 0.40 mg/dL (0.1-1.2) 06/19/22 01:18 AST 22 units/L (5-40) 06/19/22 01:18 ALT 31 units/L (7-56) 06/19/22 01:18 Alkaline Phosphatase 77 units/L (35-129) 06/19/22 01:18 Troponin T < 0.010 ng/mL (0.00-0.029) 06/19/22 01:18 Total Protein 7.4 g/dL (6.3-8.2) 06/19/22 01:18 Albumin 4.1 g/dL (3.9-5) 06/19/22 01:18 Albumin/Globulin Ratio 1.2 % 06/19/22 01:18 Lipase 26 units/L (13-60) 06/19/22 01:18 Urine Color Yellow (Yellow) 06/19/22 03:26 Urine Turbidity Clear (Clear) 06/19/22 03:26 Urine pH 5.0 (5.0-7.0) 06/19/22 03:26 Ur Specific [place] 1.030 (1.003-1.030) 06/19/22 03:26 Urine Protein <30 mg dl mg/dL (Negative) 06/19/22 03:26 Urine Glucose (UA) Negative mg/dL (Negative) 06/19/22 03:26 Urine Ketones Negative mg/dL (Negative) 06/19/22 03:26 Urine Blood Small (Negative) A 06/19/22 03:26 Urine Nitrite Negative (Negative) 06/19/22 03:26 Urine Bilirubin Negative (Negative) 06/19/22 03:26 Urine Urobilinogen 0.2 mg/dL (<2.0) 06/19/22 03:26 Ur Leukocyte Esterase Trace (Negative) 06/19/22 03:26 Urine WBC (Auto) 12.0 /HPF (0.0-6.0) H 06/19/22 03:26 Urine RBC (Auto) 6.0 /HPF (0.0-6.0) 06/19/22 03:26 U Epithel Cells (Auto) 5.0 /HPF (0-13.0) 06/19/22 03:26 Urine Bacteria (Auto) 1+ /HPF (Negative) 06/19/22 03:26 Urine Mucus 2+ /HPF 06/19/22 03:26 - Imaging and Cardiology Chest x-ray: report reviewed Assessment and Plan VTE prophylaxis?: Chemical Plan of care discussed with patient/family: Yes - Patient Problems (1) Acute asthma exacerbation Current Visit: No Status: Acute Plan to address problem: Admit the patient to the medical telemetry. Put the patient on BiPAP. Albuterol via nebulizer every 4 hours. DuoNeb by nebulizer every 4 hours Solu- Medrol 40 mg IV every 6 hours. Singular 10 mg p.o. daily. Consult pulmonary if needed (2) Acute respiratory failure Current Visit: No Status: Acute Plan to address problem: Put the patient on BiPAP. Albuterol via nebulizer every 4 hours. DuoNeb by nebulizer every 4 hours Solu-Medrol 40 mg IV every 6 hours. Singular 10 mg p.o. daily. Consult pulmonary if needed (3) Diabetes Current Visit: Yes Status: Acute Plan to address problem: 1800 kcal ADA diet. Humalog sliding scale with high-dose coverage. Lantus 25 units subcu daily 12 hours. Diabetic education (4) Hypertension Current Visit: Yes Status: Acute Plan to address problem: Hydralazine 10 mg IV every 6 hours as needed. We will continue the home medication (5) OBDULIA (obstructive sleep apnea) Current Visit: No Status: Chronic (6) Advance care planning Current Visit: Yes Status: Acute Plan to address problem: Disease education conducted, care plan discussed, diagnosis discussed, prognosis discussed. Patient is full code. Patient acknowledged understanding and agreement with care plan. +30 minutes. (7) DVT prophylaxis Current Visit: No Status: Acute Plan to address problem: Heparin 5000 units subcu every 12 hours for DVT prophylaxis. Pepcid 20 mg p.o. twice daily GI prophylaxis. Patient is a full code
[2022-06-19] MEDS ORDERED: MEPOLIZUMAB 100 MG/ML IJ SCH (05:00)
[2022-06-19] MEDS: ALBUTEROL 8.5 GM MDI INHALATION IH SCH ×2 (07:59→11:30)
[2022-06-19] MEDS: BUDESONIDE 0.5 MG/2 ML NEBU IH SCH ×2 (08:00→19:32)
[2022-06-19] MEDS ORDERED: IPRATROPIUM/ALBUTEROL SULFATE 3 ML AMPUL.NEB IH SCH (08:00)
[2022-06-19] MEDS ORDERED: ARFORMOTEROL 15 MCG/2 ML NEBU IH SCH (09:00)
[2022-06-19] MEDS: LOSARTAN 25 MG TAB PO SCH (09:17)
[2022-06-19] MEDS: CETIRIZINE 10 MG TAB PO SCH (09:17)
[2022-06-19] MEDS: FAMOTIDINE 20 MG TAB PO SCH ×2 (09:17→22:03)
[2022-06-19] MEDS: methylPREDNISolone Sod Succinate 40 MG/1 ML INJ IV SCH ×2 (09:18→12:38)
[2022-06-19] MEDS: INSULIN LISPRO 100 UNIT/ML SUB-Q SCH ×5 (09:18→22:05)
[2022-06-19] MEDS: HEPARIN 5,000 UNIT/1 ML VIAL SUB-Q SCH ×2 (09:18→22:06)
[2022-06-19] MEDS: amLODIPine 5 MG TAB PO SCH (09:18)
[2022-06-19] MEDS: INSULIN GLARGINE 100 UNITS/ML SUB-Q SCH ×2 (09:19→22:03)
[2022-06-19] MEDS ORDERED: NON-FORMULARY EACH (Insulin Glargine,Hum.Rec.Anlog [Lantus Solostar] 100 UNIT/ML Insuln.Pe SQ SCH (10:00)
[2022-06-19] MEDS ORDERED: FLUTICASONE IH SCH (10:00)
[2022-06-19] MEDS ORDERED: VILANTEROL IH SCH (10:00)
[2022-06-19] MEDS ORDERED: INSULIN GLARGINE 100 UNITS/ML SUB-Q NR (10:30)
[2022-06-19] MEDS ORDERED: methylPREDNISolone Sod Succinate 40 MG/1 ML INJ IV SCH (12:05)
--- NOTE | 2022-06-19 12:15 | Consultation ---
History of Present Illness Consult date: 06/19/22 Requesting physician: RAHEL GARCIA Reason for consult: hypoxemia History of present illness: 51 y/o obese female with persistent asthma, will known to myself and my practice as she follows with Bessie admitted with acute respiratory failure secondary to asthma exacerbation. Past History Past Medical History: hypertension, other (Asthma intubated multiple times) Past Surgical History: Other (Tubal ligation) Social history: no significant social history Family history: hypertension Medications and Allergies Allergies Allergy/AdvReac Type Severity Reaction Status Date / Time wheat Allergy Unknown Verified 06/19/22 16:03 Home Medications Medication Instructions Recorded Confirmed Last Taken Type Mepolizumab [Nucala] 1 syr IJ QMONTH 05/09/20 06/19/22 02/21/22 History amLODIPine 5 mg PO DAILY 01/27/22 06/19/22 06/18/22 History Losartan [Cozaar] 25 mg PO QDAY #30 tablet 01/29/22 06/19/22 06/18/22 Rx Albuterol Sulfate [Proventil Hfa] 2 puff IH Q4H 02/24/22 06/19/22 06/18/22 History Cetirizine HCl [Allergy] 10 mg PO QDAY 02/24/22 06/19/22 06/18/22 History Cholecalciferol Vit D3 [Vitamin D3 1,000 unit PO QDAY 02/24/22 06/19/22 06/18/22 History 1,000 UNIT TAB] metFORMIN [Glucophage] 850 mg PO BIDDIAB tablet 02/27/22 06/19/22 06/18/22 Rx ALBUTEROL NEB's [Proventil 0.083% 2.5 mg IH QID PRN 06/19/22 06/19/22 06/18/22 History NEBS] Fluticasone/Umeclidin/Vilanter 1 each IH QDAY 06/19/22 06/19/22 06/18/22 History [Trelegy Ellipta 100-62.5-25] Insulin Aspart (Nf) [NovoLOG 7 units SQ TIDAC 06/19/22 06/19/22 06/18/22 History Flexpen] Insulin Detemir [Levemir Flextouch] 35 unit SQ QDAY 06/19/22 06/19/22 06/18/22 History Semaglutide [Ozempic] 2.5 mg SQ QWEEK 06/19/22 06/19/22 06/13/22 History Active Meds: Active Medications Acetaminophen (Acetaminophen 325 Mg Tab) 650 mg PO Q4H PRN PRN Reason: Pain MILD(1-3)/Fever >100.5/BOOKER Albuterol (Albuterol 2.5 Mg/3 Ml Nebu) 2.5 mg IH Q3HRT PRN PRN Reason: Shortness Of Breath Last Admin: 06/19/22 11:22 Dose: 2.5 mg Albuterol/Ipratropium (Ipratropium/Albuterol Sulfate 3 Ml Ampul.Neb) 1 ampul IH Q4HRT [facility] Amlodipine Besylate (Amlodipine 5 Mg Tab) 5 mg PO DAILY [facility] Last Admin: 06/19/22 09:18 Dose: 5 mg Budesonide (Budesonide 0.5 Mg/2 Ml Nebu) 0.5 mg IH Q12HRT [facility] Last Admin: 06/19/22 08:00 Dose: 0.5 mg Cetirizine HCl (Cetirizine 10 Mg Tab) 10 mg PO QDAY [facility] Last Admin: 06/19/22 09:17 Dose: 10 mg Dextrose (Dextrose 50% In Water (25gm) 50 Ml Syringe) 0 ml IV Q30MIN PRN; Protocol PRN Reason: Hypoglycemia Famotidine (Famotidine 20 Mg Tab) 20 mg PO BID [facility] Last Admin: 06/19/22 09:17 Dose: 20 mg Heparin Sodium (Porcine) (Heparin 5,000 Unit/1 Ml Vial) 5,000 unit SUB-Q Q12HR [facility] Last Admin: 06/19/22 09:18 Dose: 5,000 unit Insulin Glargine (Insulin Glargine 100 Units/Ml) 25 units SUB-Q BID [facility] Last Admin: 06/19/22 09:19 Dose: Not Given Insulin Human Lispro (Insulin Lispro 100 Unit/Ml) 0 unit SUB-Q ACHS [facility]; Protocol Last Admin: 06/19/22 11:50 Dose: Not Given Losartan Potassium (Losartan 25 Mg Tab) 25 mg PO QDAY [facility] Last Admin: 06/19/22 09:17 Dose: 25 mg Methylprednisolone Sodium Succinate (Methylprednisolone Sod Succinate 40 Mg/1 Ml Inj) 60 mg IV Q6HR [facility] Miscellaneous Medication (Mepolizumab [Nucala]) 1 syr IJ QMONTH [facility] Montelukast Sodium (Montelukast 10 Mg Tab) 10 mg PO QPM [facility] Morphine Sulfate (Morphine 2 Mg/1 Ml Inj) 2 mg IV Q4H PRN PRN Reason: Pain, Moderate (4-6) Morphine Sulfate (Morphine 4 Mg/1 Ml Inj) 4 mg IV Q4H PRN PRN Reason: Pain , Severe (7-10) Ondansetron HCl (Ondansetron 4 Mg/2 Ml Inj) 4 mg IV Q8H PRN PRN Reason: Nausea And Vomiting Sodium Chloride (Sodium Chloride 0.9% 10 Ml Flush Syringe) 10 ml IV BID [facility] Last Admin: 06/19/22 09:23 Dose: 10 ml Sodium Chloride (Sodium Chloride 0.9% 10 Ml Flush Syringe) 10 ml IV PRN PRN PRN Reason: LINE FLUSH Review of Systems All systems: negative Physical Examination Vital signs: Vital Signs Pulse Resp Pulse Ox 140 H 24 96 06/19/22 00:59 06/19/22 00:59 06/19/22 00:59 General appearance: no acute distress, alert, other (obese) Eyes: non-icteric ENT: oropharynx moist Neck: supple Effort: normal Ascultation: Bilateral: diminished breath sounds, wheezes Results - Laboratory Findings CBC and BMP: 06/20/22 05:08 06/20/22 05:08 ABG ABG pH 7.385 pH Units (7.350-7.450) 06/19/22 04:45 ABG pCO2 39.1 mm Hg 06/19/22 04:45 ABG pO2 97.2 mm Hg (80.0-90.0) H 06/19/22 04:45 ABG O2 Saturation 97.5 % (95.0-99.0) 06/19/22 04:45 PT/INR, D-dimer PT 12.5 Sec. (12.2-14.9) 06/19/22 01:18 INR 0.85 (0.87-1.13) L 06/19/22 01:18 Abnormal lab findings: Abnormal Labs 06/19/22 06/19/22 06/19/22 01:18 01:18 01:18 WBC 12.4 H MCH 27 L RDW 15.5 H Seg Neuts % (Manual) 84.0 H Lymphocytes % (Manual) 12.0 L Seg Neutrophils # Man 10.4 H INR 0.85 L ABG pO2 Glucose 136 H POC Glucose Magnesium 2.80 H Urine Blood Urine WBC (Auto) 06/19/22 06/19/22 06/19/22 03:26 04:45 08:38 WBC MCH RDW Seg Neuts % (Manual) Lymphocytes % (Manual) Seg Neutrophils # Man INR ABG pO2 97.2 H Glucose POC Glucose 205 H Magnesium Urine Blood Small A Urine WBC (Auto) 12.0 H 06/19/22 11:59 WBC MCH RDW Seg Neuts % (Manual) Lymphocytes % (Manual) Seg Neutrophils # Man INR ABG pO2 Glucose POC Glucose 206 H Magnesium Urine Blood Urine WBC (Auto) - Diagnostic Findings Chest x-ray: image reviewed Assessment and Plan 51 y/o female with acute on chronic respiratory failure secondary to asthma exacerbation. 1. Increased steroids to 60q6 2. Stopped Proair and Brovana. Changed duonebs to q4 at least for the next 48 hours 3. Daily net negative volume state 4. BP control
[2022-06-19] MEDS: methylPREDNISolone Sod Succinate 125 MG/2 ML INJ IV SCH ×2 (12:35→17:12)
[2022-06-19] MEDS: IPRATROPIUM/ALBUTEROL SULFATE 3 ML AMPUL.NEB IH SCH ×3 (15:21→23:49)
--- NOTE | 2022-06-19 16:43 | Event Note ---
Date: 06/19/22 The patient was evaluated this morning, she was found to be hemodynamically stable yet on BiPAP. #Acute asthma exacerbation #Acute hypoxic respiratory failure - etiology: Acute asthma exacerbation - baseline oxygen requirements: Room air - supplemental oxygen: BiPAP - Continue protocol: continue pulse oximetry, wean oxygen as tolerated, DuoNebs every 4 hours, albuterol nebs every 4 hours as needed, IV methylprednisolone 60 mg every 6 hours Pulmonology consulted; appreciate recs - continue to monitor #Insulin dependent type II diabetes mellitus - hemoglobin A1c: Unknown - home regimen: Metformin 850 mg twice daily, Levemir 35 units daily, aspart 7 units with meals, semaglutide 2.5 mg subcutaneously weekly - current regimen: Lantus 25 units twice daily + SSI + metformin 850 mg daily - blood glucose goal 140-180 while inpatient - continue to monitor #Hypertension - home medications: Amlodipine 5 mg daily, losartan 25 mg daily - current medications: Amlodipine 5 mg daily, losartan 25 mg daily - SBP goal <160 and DBP goal <90 while inpatient - continue to monitor #Morbid obesity #Obstructive sleep apnea #Weight loss counseling #Exercise counseling - BMI 39.4 - Counseled patient on the importance of weight loss, incorporating exercise, and dietary changes (lean meats, fresh fruits and vegetables, and water intake). Patient expresses understanding. - Time: +15 min #Coordination of CARE time: 30 minutes. Total visit time equals 30 or more minutes with greater than 50% spent [id number] on coordination of care and counseling. Critical Care Billing: The high probability of a clinically significant, sudden or life threatening deterioration of the [respiratory] system(s) required my full and direct attention, intervention and personal management. The aggregate critical care time was [60] minutes. This time is in addition to time spent performing reported procedures but includes the following: [x] Data Review and interpretation [x] Patient assessment and monitoring of vital signs [x] Documentation [x] Medication orders and management
[2022-06-19] MEDS: MONTELUKAST 10 MG TAB PO SCH (17:12)
[2022-06-19] MEDS: metFORMIN 850 MG TAB PO SCH (17:12)
[2022-06-19] MEDS ORDERED: MONTELUKAST 10 MG TAB PO SCH (22:00)
[2022-06-20] MEDS: methylPREDNISolone Sod Succinate 125 MG/2 ML INJ IV SCH ×5 (00:13→23:34)
[2022-06-20] MEDS: IPRATROPIUM/ALBUTEROL SULFATE 3 ML AMPUL.NEB IH SCH ×6 (03:15→23:35)
[2022-06-20 06:01] LABS: Hematocrit 37.5 % (30.3-42.9); Hemoglobin 11.5 gm/dl (10.1-14.3); Mean Corpuscular HGB Conc 31 % (30-34); Mean Corpuscular Volume 86 fl (79-97); Platelet Count 222 K/mm3 (140-440); Red Blood Count 4.36 M/mm3 (3.65-5.03); Red Cell Distribution Width 15.5 % (13.2-15.2)
[2022-06-20 06:22] LABS: BUN/Creatinine Ratio 18; Blood Urea Nitrogen 16 mg/dL (7-17); Calcium 9.3 mg/dL (8.4-10.2); Hemolysis Index 3
[2022-06-20 06:54] LABS: Anisocytosis 1+; Band Neutrophils # (Manual) 0.6 K/mm3; Basophils % (Manual) 0 % (0.0-1.8); Eosinophils % (Manual) 0 % (0.0-4.3); Platelet Estimate Consistent w Auto; Total Cells Counted 100
[2022-06-20] MEDS: BUDESONIDE 0.5 MG/2 ML NEBU IH SCH ×2 (07:18→20:31)
[2022-06-20] MEDS: INSULIN LISPRO 100 UNIT/ML SUB-Q SCH ×4 (08:30→22:53)
[2022-06-20] MEDS: metFORMIN 850 MG TAB PO SCH ×2 (09:45→17:51)
[2022-06-20] MEDS: HEPARIN 5,000 UNIT/1 ML VIAL SUB-Q SCH ×2 (09:46→22:45)
[2022-06-20] MEDS: LOSARTAN 25 MG TAB PO SCH (09:46)
[2022-06-20] MEDS: CETIRIZINE 10 MG TAB PO SCH (09:46)
[2022-06-20] MEDS: FAMOTIDINE 20 MG TAB PO SCH ×2 (09:46→22:55)
--- NOTE | 2022-06-20 11:17 | Electrocardiograph Report ---
[facility] Test Date: 2022-06-19 Test Time: 14:03:42 Pat Name: RONY SHARPE Department: Room: A480 1 Gender: F [employer] Manager: TAMMI : 1970 Requested By: JARRETT CULLEN Order Number: [id number] Reading MD: Dc Ren Measurements Intervals [place] Rate: 107 P: 58 KS: 136 QRS: -6 QRSD: 84 T: 14 QT: 348 QTc: 465 Interpretive Statements Sinus tachycardia Compared to ECG 02/25/2022 07:28:38 Sinus rhythm no longer present Electronically Signed On 06-20-2022 11:17:22 EDT by Dc Ren
[2022-06-20] MEDS: amLODIPine 5 MG TAB PO SCH (12:11)
[2022-06-20] MEDS: INSULIN GLARGINE 100 UNITS/ML SUB-Q SCH ×2 (12:39→22:45)
--- NOTE | 2022-06-20 14:07 | Progress Note ---
Assessment and Plan 51 y/o female with acute on chronic respiratory failure secondary to asthma exacerbation. 06/20/22: Continue steroids at 60q6 at least through tomorrow. continue current neb schedule. Will continue to follow. Overall improved and likely discharge sometime over the weekend. 1. Increased steroids to 60q6 2. Stopped Proair and Brovana. Changed duonebs to q4 at least for the next 48 hours 3. Daily net negative volume state 4. BP control Subjective Date of service: 06/20/22 Interval history: Much better today. Stable on cannula. wore NIV last night Objective Vital Signs - 12hr 06/20/22 06/20/22 06/20/22 03:13 03:16 04:12 Temperature Pulse Rate 90 76 Pulse Rate [ 92 H Anterior Bilateral Throughout] Respiratory 13 Rate Respiratory 18 Rate [Anterior Bilateral Throughout] Blood Pressure O2 Sat by Pulse 100 Oximetry 06/20/22 06/20/22 06/20/22 04:28 07:18 07:42 Temperature 97.6 F 96.6 F L Pulse Rate 86 91 H Pulse Rate [ 78 Anterior Bilateral Throughout] Respiratory 17 18 Rate Respiratory 18 Rate [Anterior Bilateral Throughout] Blood Pressure 113/65 119/61 O2 Sat by Pulse 98 97 Oximetry 06/20/22 06/20/22 06/20/22 11:49 11:54 12:00 Temperature Pulse Rate 91 H Pulse Rate [ 89 Anterior Bilateral Throughout] Respiratory Rate Respiratory 18 Rate [Anterior Bilateral Throughout] Blood Pressure O2 Sat by Pulse 2 L Oximetry Constitutional: no acute distress, alert, other (obese) Eyes: non-icteric ENT: oropharynx moist Neck: supple Effort: normal Ascultation: Bilateral: diminished breath sounds, wheezes CBC and BMP: 06/20/22 05:08 06/20/22 05:08 ABG, PT/INR, D-dimer: ABG ABG pH 7.385 pH Units (7.350-7.450) 06/19/22 04:45 ABG pCO2 39.1 mm Hg 06/19/22 04:45 ABG pO2 97.2 mm Hg (80.0-90.0) H 06/19/22 04:45 ABG O2 Saturation 97.5 % (95.0-99.0) 06/19/22 04:45 PT/INR, D-dimer PT 12.5 Sec. (12.2-14.9) 06/19/22 01:18 INR 0.85 (0.87-1.13) L 06/19/22 01:18 Abnormal lab findings: Abnormal Labs 06/19/22 06/19/22 06/19/22 01:18 01:18 01:18 WBC 12.4 H MCH 27 L RDW 15.5 H Seg Neuts % (Manual) 84.0 H Lymphocytes % (Manual) 12.0 L Seg Neutrophils # Man 10.4 H Lymphocytes # (Manual) INR 0.85 L ABG pO2 Glucose 136 H POC Glucose Magnesium 2.80 H Urine Blood Urine WBC (Auto) 06/19/22 06/19/22 06/19/22 03:26 04:45 08:38 WBC MCH RDW Seg Neuts % (Manual) Lymphocytes % (Manual) Seg Neutrophils # Man Lymphocytes # (Manual) INR ABG pO2 97.2 H Glucose POC Glucose 205 H Magnesium Urine Blood Small A Urine WBC (Auto) 12.0 H 06/19/22 06/19/22 06/19/22 11:59 16:50 21:49 WBC MCH RDW Seg Neuts % (Manual) Lymphocytes % (Manual) Seg Neutrophils # Man Lymphocytes # (Manual) INR ABG pO2 Glucose POC Glucose 206 H 169 H 162 H Magnesium Urine Blood Urine WBC (Auto) 06/20/22 06/20/22 06/20/22 05:08 05:08 07:41 WBC 19.7 H MCH 26 L RDW 15.5 H Seg Neuts % (Manual) 93.0 H Lymphocytes % (Manual) 1.0 L Seg Neutrophils # Man 18.3 H Lymphocytes # (Manual) 0.2 L INR ABG pO2 Glucose 177 H POC Glucose 163 H Magnesium Urine Blood Urine WBC (Auto) 06/20/22 11:52 WBC MCH RDW Seg Neuts % (Manual) Lymphocytes % (Manual) Seg Neutrophils # Man Lymphocytes # (Manual) INR ABG pO2 Glucose POC Glucose 159 H Magnesium Urine Blood Urine WBC (Auto)
--- NOTE | 2022-06-20 14:28 | Progress Note ---
Assessment and Plan Assessment and plan: #Acute asthma exacerbationimproving #Acute hypoxic respiratory failureimproving - etiology: Acute asthma exacerbation - baseline oxygen requirements: Room air - supplemental oxygen: 2 L nasal cannula - Continue protocol: continue pulse oximetry, wean oxygen as tolerated, DuoNebs every 4 hours, albuterol nebs every 4 hours as needed, IV methylprednisolone 60 mg every 6 hours Pulmonology consulted; appreciate recs - continue to monitor #Insulin dependent type II diabetes mellitus - hemoglobin A1c: Unknown - home regimen: Metformin 850 mg twice daily, Levemir 35 units daily, aspart 7 units with meals, semaglutide 2.5 mg subcutaneously weekly - current regimen: Lantus 25 units twice daily + SSI + metformin 850 mg daily - blood glucose goal 140-180 while inpatient - continue to monitor #Hypertension - home medications: Amlodipine 5 mg daily, losartan 25 mg daily - current medications: Amlodipine 5 mg daily, losartan 25 mg daily - SBP goal <160 and DBP goal <90 while inpatient - continue to monitor #Morbid obesity #Obstructive sleep apnea #Weight loss counseling #Exercise counseling - BMI 39.4 - Counseled patient on the importance of weight loss, incorporating exercise, and dietary changes (lean meats, fresh fruits and vegetables, and water intake). Patient expresses understanding. - Time: +15 min #Discharge planning - Patient is pending resolution of acute hypoxic respiratory failure. - Case management has been made aware. - Discharge is tentatively 48-72 hours Disposition Plan: Continue medical management Total Time Spent with Patient (Minutes): 45 minutes History Interval history: No acute events overnight. Hospitalist Physical - Constitutional Vitals: Temp Pulse Resp BP Pulse Ox 96.6 F L 91 H 18 119/61 2 L 06/20/22 07:42 06/20/22 12:00 06/20/22 11:54 06/20/22 07:42 06/20/22 11:49 General appearance: Present: no acute distress, well-nourished, obese - EENT Eyes: Present: PERRL, EOM intact ENT: hearing intact, clear oral mucosa, dentition normal - Neck Neck: Present: supple, normal ROM - Respiratory Respiratory effort: normal Respiratory: bilateral: wheezing (2 L nasal cannula) - Cardiovascular Rhythm: regular Heart Sounds: Present: S1 & S2 - Extremities Extremities: no ischemia, pulses intact, pulses symmetrical, No edema, normal t emperature, normal color Peripheral Pulses: within normal limits - Abdominal General gastrointestinal: soft, non-tender, non-distended, normal bowel sounds - Integumentary Integumentary: Present: clear, warm, dry - Psychiatric Psychiatric: appropriate mood/affect, intact judgment & insight, memory intact, cooperative - Neurologic Neurologic: CNII-XII intact, moves all extremities HEART Score - HEART Score Troponin: Troponin T < 0.010 ng/mL (0.00-0.029) 06/19/22 01:18 Results - Labs CBC & Chem 7: 06/20/22 05:08 06/20/22 05:08 Labs: Laboratory Last Values WBC 19.7 K/mm3 (4.5-11.0) H 06/20/22 05:08 RBC 4.36 M/mm3 (3.65-5.03) 06/20/22 05:08 Hgb 11.5 gm/dl (10.1-14.3) 06/20/22 05:08 Hct 37.5 % (30.3-42.9) 06/20/22 05:08 MCV 86 fl (79-97) 06/20/22 05:08 MCH 26 pg (28-32) L 06/20/22 05:08 MCHC 31 % (30-34) 06/20/22 05:08 RDW 15.5 % (13.2-15.2) H 06/20/22 05:08 Plt Count 222 K/mm3 (140-440) 06/20/22 05:08 Add Manual Diff Complete 06/20/22 05:08 Total Counted 100 06/20/22 05:08 Seg Neutrophils % Oral Pathologist 06/20/22 05:08 Seg Neuts % (Manual) 93.0 % (40.0-70.0) H 06/20/22 05:08 Band Neutrophils % 3.0 % 06/20/22 05:08 Lymphocytes % (Manual) 1.0 % (13.4-35.0) L 06/20/22 05:08 Reactive Lymphs % (Man) 0 % 06/20/22 05:08 Monocytes % (Manual) 3.0 % (0.0-7.3) 06/20/22 05:08 Eosinophils % (Manual) 0 % (0.0-4.3) 06/20/22 05:08 Basophils % (Manual) 0 % (0.0-1.8) 06/20/22 05:08 Metamyelocytes % 0 % 06/20/22 05:08 Myelocytes % 0 % 06/20/22 05:08 Promyelocytes % 0 % 06/20/22 05:08 Blast Cells % 0 % 06/20/22 05:08 Nucleated RBC % Not Reportable 06/20/22 05:08 Seg Neutrophils # Man 18.3 K/mm3 (1.8-7.7) H 06/20/22 05:08 Band Neutrophils # 0.6 K/mm3 06/20/22 05:08 Lymphocytes # (Manual) 0.2 K/mm3 (1.2-5.4) L 06/20/22 05:08 Abs React Lymphs (Man) 0.0 K/mm3 06/20/22 05:08 Monocytes # (Manual) 0.6 K/mm3 (0.0-0.8) 06/20/22 05:08 Eosinophils # (Manual) 0.0 K/mm3 (0.0-0.4) 06/20/22 05:08 Basophils # (Manual) 0.0 K/mm3 (0.0-0.1) 06/20/22 05:08 Metamyelocytes # 0.0 K/mm3 06/20/22 05:08 Myelocytes # 0.0 K/mm3 06/20/22 05:08 Promyelocytes # 0.0 K/mm3 06/20/22 05:08 Blast Cells # 0.0 K/mm3 06/20/22 05:08 WBC Morphology Not Reportable 06/20/22 05:08 Hypersegmented Neuts Not Reportable 06/20/22 05:08 Hyposegmented Neuts Not Reportable 06/20/22 05:08 Hypogranular Neuts Not Reportable 06/20/22 05:08 Smudge Cells Not Reportable 06/20/22 05:08 Toxic Granulation Not Reportable 06/20/22 05:08 Toxic Vacuolation Not Reportable 06/20/22 05:08 Dohle Bodies Not Reportable 06/20/22 05:08 Pelger-Huet Anomaly Not Reportable 06/20/22 05:08 Elvin Rods Not Reportable 06/20/22 05:08 Platelet Estimate Consistent w auto 06/20/22 05:08 Clumped Platelets Not Reportable 06/20/22 05:08 Plt Clumps, EDTA Not Reportable 06/20/22 05:08 Large Platelets Not Reportable 06/20/22 05:08 Giant Platelets Not Reportable 06/20/22 05:08 Platelet Satelliting Not Reportable 06/20/22 05:08 Plt Morphology Comment Not Reportable 06/20/22 05:08 RBC Morphology Not Reportable 06/20/22 05:08 Dimorphic RBCs Not Reportable 06/20/22 05:08 Polychromasia Not Reportable 06/20/22 05:08 Hypochromasia Not Reportable 06/20/22 05:08 Poikilocytosis Not Reportable 06/20/22 05:08 Anisocytosis 1+ 06/20/22 05:08 Microcytosis Not Reportable 06/20/22 05:08 Macrocytosis Not Reportable 06/20/22 05:08 Spherocytes Not Reportable 06/20/22 05:08 Pappenheimer Bodies Not Reportable 06/20/22 05:08 Sickle Cells Not Reportable 06/20/22 05:08 Target Cells Not Reportable 06/20/22 05:08 Tear Drop Cells Not Reportable 06/20/22 05:08 Ovalocytes Not Reportable 06/20/22 05:08 Helmet Cells Not Reportable 06/20/22 05:08 [place] Bodies Not Reportable 06/20/22 05:08 [place] Rings Not Reportable 06/20/22 05:08 War Cells Not Reportable 06/20/22 05:08 Bite Cells Not Reportable 06/20/22 05:08 Crenated Cell Not Reportable 06/20/22 05:08 Elliptocytes Not Reportable 06/20/22 05:08 Acanthocytes (Spur) Not Reportable 06/20/22 05:08 Rouleaux Not Reportable 06/20/22 05:08 Hemoglobin C Crystals Not Reportable 06/20/22 05:08 Schistocytes Not Reportable 06/20/22 05:08 Malaria parasites Not Reportable 06/20/22 05:08 Sean Bodies Not Reportable 06/20/22 05:08 Hem Pathologist Commnt No 06/20/22 05:08 PT 12.5 Sec. (12.2-14.9) 06/19/22 01:18 INR 0.85 (0.87-1.13) L 06/19/22 01:18 ABG pH 7.385 pH Units (7.350-7.450) 06/19/22 04:45 ABG pCO2 39.1 mm Hg 06/19/22 04:45 ABG pO2 97.2 mm Hg (80.0-90.0) H 06/19/22 04:45 ABG HCO3 22.9 mmol/L (20.0-26.0) 06/19/22 04:45 ABG O2 Saturation 97.5 % (95.0-99.0) 06/19/22 04:45 ABG O2 Content 17.5 (0.0-44) 06/19/22 04:45 ABG Base Excess -1.9 mmol/L (-2.0-3.0) 06/19/22 04:45 ABG Hemoglobin 13.0 gm/dl (12.0-16.0) 06/19/22 04:45 ABG Carboxyhemoglobin 1.3 % (0.0-5.0) 06/19/22 04:45 ABG Methemoglobin 0.5 % (0.0-1.5) 06/19/22 04:45 Oxyhemoglobin 95.7 % (95.0-99.0) 06/19/22 04:45 FiO2 25 % 06/19/22 04:45 Sodium 138 mmol/L (137-145) 06/20/22 05:08 Potassium 5.0 mmol/L (3.6-5.0) D 06/20/22 05:08 Chloride 102.0 mmol/L (98-107) 06/20/22 05:08 Carbon Dioxide 25 mmol/L (22-30) 06/20/22 05:08 Anion Gap 16 mmol/L 06/20/22 05:08 BUN 16 mg/dL (7-17) 06/20/22 05:08 Creatinine 0.9 mg/dL (0.6-1.2) 06/20/22 05:08 Estimated GFR > 60 ml/min 06/20/22 05:08 BUN/Creatinine Ratio 18 % 06/20/22 05:08 Glucose 177 mg/dL (65-100) H 06/20/22 05:08 POC Glucose 159 mg/dL (70-105) H 06/20/22 11:52 Lactic Acid 1.50 mmol/L (0.7-2.0) 06/19/22 01:18 Calcium 9.3 mg/dL (8.4-10.2) 06/20/22 05:08 Magnesium 2.80 mg/dL (1.7-2.3) H 06/19/22 01:18 Total Bilirubin 0.40 mg/dL (0.1-1.2) 06/19/22 01:18 AST 22 units/L (5-40) 06/19/22 01:18 ALT 31 units/L (7-56) 06/19/22 01:18 Alkaline Phosphatase 77 units/L (35-129) 06/19/22 01:18 Troponin T < 0.010 ng/mL (0.00-0.029) 06/19/22 01:18 Total Protein 7.4 g/dL (6.3-8.2) 06/19/22 01:18 Albumin 4.1 g/dL (3.9-5) 06/19/22 01:18 Albumin/Globulin Ratio 1.2 % 06/19/22 01:18 Lipase 26 units/L (13-60) 06/19/22 01:18 Urine Color Yellow (Yellow) 06/19/22 03:26 Urine Turbidity Clear (Clear) 06/19/22 03:26 Urine pH 5.0 (5.0-7.0) 06/19/22 03:26 Ur Specific [place] 1.030 (1.003-1.030) 06/19/22 03:26 Urine Protein <30 mg dl mg/dL (Negative) 06/19/22 03:26 Urine Glucose (UA) Negative mg/dL (Negative) 06/19/22 03:26 Urine Ketones Negative mg/dL (Negative) 06/19/22 03:26 Urine Blood Small (Negative) A 06/19/22 03:26 Urine Nitrite Negative (Negative) 06/19/22 03:26 Urine Bilirubin Negative (Negative) 06/19/22 03:26 Urine Urobilinogen 0.2 mg/dL (<2.0) 06/19/22 03:26 Ur Leukocyte Esterase Trace (Negative) 06/19/22 03:26 Urine WBC (Auto) 12.0 /HPF (0.0-6.0) H 06/19/22 03:26 Urine RBC (Auto) 6.0 /HPF (0.0-6.0) 06/19/22 03:26 U Epithel Cells (Auto) 5.0 /HPF (0-13.0) 06/19/22 03:26 Urine Bacteria (Auto) 1+ /HPF (Negative) 06/19/22 03:26 Urine Mucus 2+ /HPF 06/19/22 03:26 [place]/IV: Voiding Method Toilet Active Medications - Current Medications Current Medications: Generic Name Dose Route Start Last Admin Trade Name Freq PRN Reason Stop Dose Admin Acetaminophen 650 mg 06/19/22 04:45 Acetaminophen 325 Mg Tab PO Q4H PRN Pain MILD(1-3)/Fever >100.5/BOOKER Albuterol 2.5 mg 06/19/22 04:45 06/19/22 11:22 Albuterol 2.5 Mg/3 Ml Nebu IH 2.5 mg Q3HRT PRN Administration Shortness Of Breath Albuterol/Ipratropium 1 ampul 06/19/22 16:00 06/20/22 11:55 Ipratropium/Albuterol Sulfate 3 Ml Ampul.Neb IH 1 ampul Q4HRT JOSE D Administration Amlodipine Besylate 5 mg 06/19/22 10:00 06/20/22 12:11 Amlodipine 5 Mg Tab PO Not Given DAILY JOSE D Budesonide 0.5 mg 06/19/22 08:00 06/20/22 07:18 Budesonide 0.5 Mg/2 Ml Nebu IH 0.5 mg Q12HRT JOSE D Administration Cetirizine HCl 10 mg 06/19/22 10:00 06/20/22 09:46 Cetirizine 10 Mg Tab PO 10 mg QDAY JOSE D Administration Dextrose 0 ml 06/19/22 04:49 Dextrose 50% In Water (25gm) 50 Ml Syringe IV Q30MIN PRN Hypoglycemia Protocol Famotidine 20 mg 06/19/22 10:00 06/20/22 09:46 Famotidine 20 Mg Tab PO 20 mg BID JOSE D Administration Heparin Sodium (Porcine) 5,000 unit 06/19/22 10:00 06/20/22 09:46 Heparin 5,000 Unit/1 Ml Vial SUB-Q 5,000 unit Q12HR JOSE D Administration Insulin Glargine 25 units 06/19/22 10:00 06/20/22 12:39 Insulin Glargine 100 Units/Ml SUB-Q 25 units BID JOSE D Administration Insulin Human Lispro 0 unit 06/19/22 07:30 06/20/22 12:39 Insulin Lispro 100 Unit/Ml SUB-Q Not Given ACHS [facility] Protocol Losartan Potassium 25 mg 06/19/22 10:00 06/20/22 09:46 Losartan 25 Mg Tab PO 25 mg QDAY JOSE D Administration Metformin HCl 850 mg 06/19/22 17:00 06/20/22 09:45 Metformin 850 Mg Tab PO 850 mg BIDDIAB JOSE D Administration Methylprednisolone Sodium Succinate 60 mg 06/19/22 13:00 06/20/22 12:39 Methylprednisolone Sod Succinate 125 Mg/2 Ml Inj IV 60 mg Q6HR JOSE D Administration Miscellaneous Medication 1 syr 06/19/22 05:00 Mepolizumab [Nucala] IJ QMONTH JOSE D Montelukast Sodium 10 mg 06/19/22 18:00 06/19/22 17:12 Montelukast 10 Mg Tab PO 10 mg QPM JOSE D Administration Morphine Sulfate 2 mg 06/19/22 04:45 Morphine 2 Mg/1 Ml Inj IV Q4H PRN Pain, Moderate (4-6) Morphine Sulfate 4 mg 06/19/22 04:45 Morphine 4 Mg/1 Ml Inj IV Q4H PRN Pain , Severe (7-10) Ondansetron HCl 4 mg 06/19/22 04:45 Ondansetron 4 Mg/2 Ml Inj IV Q8H PRN Nausea And Vomiting Sodium Chloride 10 ml 06/19/22 10:00 06/20/22 09:47 Sodium Chloride 0.9% 10 Ml Flush Syringe IV 10 ml BID JOSE D Administration Sodium Chloride 10 ml 06/19/22 04:45 Sodium Chloride 0.9% 10 Ml Flush Syringe IV PRN PRN LINE FLUSH Nutrition/Malnutrition Assess - Dietary Evaluation Nutrition/Malnutrition Findings: Nutrition Notes Start: 06/19/22 14:22 Freq: Status: Active Protocol: Document 06/19/22 14:22 TAVO (Rec: 06/19/22 14:33 TAVO [id number]) Nutrition Notes Need for Assessment generated from: MD Order,Education Initial or Follow up Brief Note Current Diagnosis Diabetes,Hypertension, Respiratory Failure Other Pertinent Diagnosis Asthma, OBDULIA. Current Diet Cardiac/Consistent Carbohydrates Diet (since B ). 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 Weight Status Obese Subjective/Other Information RD consult for nutrition education assessment. No reports available on Pt's PO intake of meals at the time . will assess at F/U. Pt is on NIV/Bi-PaP+, O2 saturation @ 94%, according to Physical Assessment history notes. Pt still in critical condition , not a candidate for Nutrition Education at the time, will assess feasibility on F/U. Percent of energy/protein needs met: Prescribed Cardiac/Consistent Carbohydrates Diet provides for energy/protein needs (1, 977 Kcal/86 g) during LOS. Nutrition Intervention Follow-Up By: 06/26/22 Additional Comments Nutrition education will be provided at F/U, if feasible. Continue monitoring food tolerance, %PO intake of meals , and BM.
[2022-06-20] MEDS: MONTELUKAST 10 MG TAB PO SCH (17:51)
[2022-06-21] MEDS: IPRATROPIUM/ALBUTEROL SULFATE 3 ML AMPUL.NEB IH SCH ×6 (03:45→23:46)
[2022-06-21] MEDS: methylPREDNISolone Sod Succinate 125 MG/2 ML INJ IV SCH ×3 (06:58→17:08)
[2022-06-21] MEDS: INSULIN LISPRO 100 UNIT/ML SUB-Q SCH ×4 (08:25→22:32)
[2022-06-21] MEDS: BUDESONIDE 0.5 MG/2 ML NEBU IH SCH ×2 (08:35→20:51)
[2022-06-21] MEDS: metFORMIN 850 MG TAB PO SCH ×2 (08:41→17:08)
[2022-06-21] MEDS: amLODIPine 5 MG TAB PO SCH (09:41)
[2022-06-21] MEDS: FAMOTIDINE 20 MG TAB PO SCH ×2 (09:41→22:32)
[2022-06-21] MEDS: CETIRIZINE 10 MG TAB PO SCH (09:41)
[2022-06-21] MEDS: HEPARIN 5,000 UNIT/1 ML VIAL SUB-Q SCH ×2 (09:41→22:32)
[2022-06-21] MEDS: LOSARTAN 25 MG TAB PO SCH (09:41)
--- NOTE | 2022-06-21 09:41 | Progress Note ---
Assessment and Plan Assessment and plan: #Acute asthma exacerbationimproving #Acute hypoxic respiratory failureimproving - etiology: Acute asthma exacerbation - baseline oxygen requirements: Room air - supplemental oxygen: 2 L nasal cannula - Continue protocol: continue pulse oximetry, wean oxygen as tolerated, DuoNebs every 4 hours, albuterol nebs every 4 hours as needed, IV methylprednisolone 60 mg every 6 hours Pulmonology consulted; appreciate recs - continue to monitor #Insulin dependent type II diabetes mellitus - hemoglobin A1c: Unknown - home regimen: Metformin 850 mg twice daily, Levemir 35 units daily, aspart 7 units with meals, semaglutide 2.5 mg subcutaneously weekly - current regimen: Lantus 25 units twice daily + SSI + metformin 850 mg daily - blood glucose goal 140-180 while inpatient - continue to monitor #Hypertension - home medications: Amlodipine 5 mg daily, losartan 25 mg daily - current medications: Amlodipine 5 mg daily, losartan 25 mg daily - SBP goal <160 and DBP goal <90 while inpatient - continue to monitor #Morbid obesity #Obstructive sleep apnea #Weight loss counseling #Exercise counseling - BMI 39.4 - Counseled patient on the importance of weight loss, incorporating exercise, and dietary changes (lean meats, fresh fruits and vegetables, and water intake). Patient expresses understanding. - Time: +15 min #Discharge planning - Patient is pending resolution of acute hypoxic respiratory failure. - Case management has been made aware. - Discharge is tentatively 48-72 hours Disposition Plan: Continue medical management Total Time Spent with Patient (Minutes): 45 min History Interval history: No acute events overnight. Hospitalist Physical - Constitutional Vitals: Temp Pulse Resp BP Pulse Ox 98.3 F 86 18 130/74 98 06/21/22 07:28 06/21/22 07:28 06/21/22 07:28 06/21/22 07:28 06/21/22 07:28 General appearance: Present: no acute distress, well-nourished, obese - EENT Eyes: Present: PERRL, EOM intact ENT: hearing intact, clear oral mucosa, dentition normal - Neck Neck: Present: supple, normal ROM - Respiratory Respiratory effort: normal Respiratory: bilateral: wheezing (on 2L NC) - Cardiovascular Rhythm: regular Heart Sounds: Present: S1 & S2 - Extremities Extremities: no ischemia, pulses intact, pulses symmetrical, No edema, normal temperature, normal color Peripheral Pulses: within normal limits - Abdominal General gastrointestinal: soft, non-tender, non-distended, normal bowel sounds - Integumentary Integumentary: Present: clear, warm, dry - Psychiatric Psychiatric: appropriate mood/affect, intact judgment & insight, memory intact, cooperative - Neurologic Neurologic: CNII-XII intact, moves all extremities - Allied Health Allied health notes reviewed: nursing HEART Score - HEART Score Troponin: Troponin T < 0.010 ng/mL (0.00-0.029) 06/19/22 01:18 Results - Labs CBC & Chem 7: 06/20/22 05:08 06/20/22 05:08 Labs: Laboratory Last Values WBC 19.7 K/mm3 (4.5-11.0) H 06/20/22 05:08 RBC 4.36 M/mm3 (3.65-5.03) 06/20/22 05:08 Hgb 11.5 gm/dl (10.1-14.3) 06/20/22 05:08 Hct 37.5 % (30.3-42.9) 06/20/22 05:08 MCV 86 fl (79-97) 06/20/22 05:08 MCH 26 pg (28-32) L 06/20/22 05:08 MCHC 31 % (30-34) 06/20/22 05:08 RDW 15.5 % (13.2-15.2) H 06/20/22 05:08 Plt Count 222 K/mm3 (140-440) 06/20/22 05:08 Add Manual Diff Complete 06/20/22 05:08 Total Counted 100 06/20/22 05:08 Seg Neutrophils % Fleshing Machine Operator 06/20/22 05:08 Seg Neuts % (Manual) 93.0 % (40.0-70.0) H 06/20/22 05:08 Band Neutrophils % 3.0 % 06/20/22 05:08 Lymphocytes % (Manual) 1.0 % (13.4-35.0) L 06/20/22 05:08 Reactive Lymphs % (Man) 0 % 06/20/22 05:08 Monocytes % (Manual) 3.0 % (0.0-7.3) 06/20/22 05:08 Eosinophils % (Manual) 0 % (0.0-4.3) 06/20/22 05:08 Basophils % (Manual) 0 % (0.0-1.8) 06/20/22 05:08 Metamyelocytes % 0 % 06/20/22 05:08 Myelocytes % 0 % 06/20/22 05:08 Promyelocytes % 0 % 06/20/22 05:08 Blast Cells % 0 % 06/20/22 05:08 Nucleated RBC % Not Reportable 06/20/22 05:08 Seg Neutrophils # Man 18.3 K/mm3 (1.8-7.7) H 06/20/22 05:08 Band Neutrophils # 0.6 K/mm3 06/20/22 05:08 Lymphocytes # (Manual) 0.2 K/mm3 (1.2-5.4) L 06/20/22 05:08 Abs React Lymphs (Man) 0.0 K/mm3 06/20/22 05:08 Monocytes # (Manual) 0.6 K/mm3 (0.0-0.8) 06/20/22 05:08 Eosinophils # (Manual) 0.0 K/mm3 (0.0-0.4) 06/20/22 05:08 Basophils # (Manual) 0.0 K/mm3 (0.0-0.1) 06/20/22 05:08 Metamyelocytes # 0.0 K/mm3 06/20/22 05:08 Myelocytes # 0.0 K/mm3 06/20/22 05:08 Promyelocytes # 0.0 K/mm3 06/20/22 05:08 Blast Cells # 0.0 K/mm3 06/20/22 05:08 WBC Morphology Not Reportable 06/20/22 05:08 Hypersegmented Neuts Not Reportable 06/20/22 05:08 Hyposegmented Neuts Not Reportable 06/20/22 05:08 Hypogranular Neuts Not Reportable 06/20/22 05:08 Smudge Cells Not Reportable 06/20/22 05:08 Toxic Granulation Not Reportable 06/20/22 05:08 Toxic Vacuolation Not Reportable 06/20/22 05:08 Dohle Bodies Not Reportable 06/20/22 05:08 Pelger-Huet Anomaly Not Reportable 06/20/22 05:08 Elvin Rods Not Reportable 06/20/22 05:08 Platelet Estimate Consistent w auto 06/20/22 05:08 Clumped Platelets Not Reportable 06/20/22 05:08 Plt Clumps, EDTA Not Reportable 06/20/22 05:08 Large Platelets Not Reportable 06/20/22 05:08 Giant Platelets Not Reportable 06/20/22 05:08 Platelet Satelliting Not Reportable 06/20/22 05:08 Plt Morphology Comment Not Reportable 06/20/22 05:08 RBC Morphology Not Reportable 06/20/22 05:08 Dimorphic RBCs Not Reportable 06/20/22 05:08 Polychromasia Not Reportable 06/20/22 05:08 Hypochromasia Not Reportable 06/20/22 05:08 Poikilocytosis Not Reportable 06/20/22 05:08 Anisocytosis 1+ 06/20/22 05:08 Microcytosis Not Reportable 06/20/22 05:08 Macrocytosis Not Reportable 06/20/22 05:08 Spherocytes Not Reportable 06/20/22 05:08 Pappenheimer Bodies Not Reportable 06/20/22 05:08 Sickle Cells Not Reportable 06/20/22 05:08 Target Cells Not Reportable 06/20/22 05:08 Tear Drop Cells Not Reportable 06/20/22 05:08 Ovalocytes Not Reportable 06/20/22 05:08 Helmet Cells Not Reportable 06/20/22 05:08 [place] Bodies Not Reportable 06/20/22 05:08 Odum Rings Not Reportable 06/20/22 05:08 [place] Cells Not Reportable 06/20/22 05:08 Bite Cells Not Reportable 06/20/22 05:08 Crenated Cell Not Reportable 06/20/22 05:08 Elliptocytes Not Reportable 06/20/22 05:08 Acanthocytes (Spur) Not Reportable 06/20/22 05:08 Rouleaux Not Reportable 06/20/22 05:08 Hemoglobin C Crystals Not Reportable 06/20/22 05:08 Schistocytes Not Reportable 06/20/22 05:08 Malaria parasites Not Reportable 06/20/22 05:08 Sean Bodies Not Reportable 06/20/22 05:08 Hem Pathologist Commnt No 06/20/22 05:08 PT 12.5 Sec. (12.2-14.9) 06/19/22 01:18 INR 0.85 (0.87-1.13) L 06/19/22 01:18 ABG pH 7.385 pH Units (7.350-7.450) 06/19/22 04:45 ABG pCO2 39.1 mm Hg 06/19/22 04:45 ABG pO2 97.2 mm Hg (80.0-90.0) H 06/19/22 04:45 ABG HCO3 22.9 mmol/L (20.0-26.0) 06/19/22 04:45 ABG O2 Saturation 97.5 % (95.0-99.0) 06/19/22 04:45 ABG O2 Content 17.5 (0.0-44) 06/19/22 04:45 ABG Base Excess -1.9 mmol/L (-2.0-3.0) 06/19/22 04:45 ABG Hemoglobin 13.0 gm/dl (12.0-16.0) 06/19/22 04:45 ABG Carboxyhemoglobin 1.3 % (0.0-5.0) 06/19/22 04:45 ABG Methemoglobin 0.5 % (0.0-1.5) 06/19/22 04:45 Oxyhemoglobin 95.7 % (95.0-99.0) 06/19/22 04:45 FiO2 25 % 06/19/22 04:45 Sodium 138 mmol/L (137-145) 06/20/22 05:08 Potassium 5.0 mmol/L (3.6-5.0) D 06/20/22 05:08 Chloride 102.0 mmol/L (98-107) 06/20/22 05:08 Carbon Dioxide 25 mmol/L (22-30) 06/20/22 05:08 Anion Gap 16 mmol/L 06/20/22 05:08 BUN 16 mg/dL (7-17) 06/20/22 05:08 Creatinine 0.9 mg/dL (0.6-1.2) 06/20/22 05:08 Estimated GFR > 60 ml/min 06/20/22 05:08 BUN/Creatinine Ratio 18 % 06/20/22 05:08 Glucose 177 mg/dL (65-100) H 06/20/22 05:08 POC Glucose 173 mg/dL (70-105) H 06/21/22 07:26 Lactic Acid 1.50 mmol/L (0.7-2.0) 06/19/22 01:18 Calcium 9.3 mg/dL (8.4-10.2) 06/20/22 05:08 Magnesium 2.80 mg/dL (1.7-2.3) H 06/19/22 01:18 Total Bilirubin 0.40 mg/dL (0.1-1.2) 06/19/22 01:18 AST 22 units/L (5-40) 06/19/22 01:18 ALT 31 units/L (7-56) 06/19/22 01:18 Alkaline Phosphatase 77 units/L (35-129) 06/19/22 01:18 Troponin T < 0.010 ng/mL (0.00-0.029) 06/19/22 01:18 Total Protein 7.4 g/dL (6.3-8.2) 06/19/22 01:18 Albumin 4.1 g/dL (3.9-5) 06/19/22 01:18 Albumin/Globulin Ratio 1.2 % 06/19/22 01:18 Lipase 26 units/L (13-60) 06/19/22 01:18 Urine Color Yellow (Yellow) 06/19/22 03:26 Urine Turbidity Clear (Clear) 06/19/22 03:26 Urine pH 5.0 (5.0-7.0) 06/19/22 03:26 Ur Specific [place] 1.030 (1.003-1.030) 06/19/22 03:26 Urine Protein <30 mg dl mg/dL (Negative) 06/19/22 03:26 Urine Glucose (UA) Negative mg/dL (Negative) 06/19/22 03:26 Urine Ketones Negative mg/dL (Negative) 06/19/22 03:26 Urine Blood Small (Negative) A 06/19/22 03:26 Urine Nitrite Negative (Negative) 06/19/22 03:26 Urine Bilirubin Negative (Negative) 06/19/22 03:26 Urine Urobilinogen 0.2 mg/dL (<2.0) 06/19/22 03:26 Ur Leukocyte Esterase Trace (Negative) 06/19/22 03:26 Urine WBC (Auto) 12.0 /HPF (0.0-6.0) H 06/19/22 03:26 Urine RBC (Auto) 6.0 /HPF (0.0-6.0) 06/19/22 03:26 U Epithel Cells (Auto) 5.0 /HPF (0-13.0) 06/19/22 03:26 Urine Bacteria (Auto) 1+ /HPF (Negative) 06/19/22 03:26 Urine Mucus 2+ /HPF 06/19/22 03:26 Microbiology: Microbiology 06/19/22 03:26 Urine,Clean Catch Urine Culture - Preliminary [place]/IV: Voiding Method Toilet Active Medications - Current Medications Current Medications: Generic Name Dose Route Start Last Admin Trade Name Freq PRN Reason Stop Dose Admin Acetaminophen 650 mg 06/19/22 04:45 Acetaminophen 325 Mg Tab PO Q4H PRN Pain MILD(1-3)/Fever >100.5/BOOKER Albuterol 2.5 mg 06/19/22 04:45 06/19/22 11:22 Albuterol 2.5 Mg/3 Ml Nebu IH 2.5 mg Q3HRT PRN Administration Shortness Of Breath Albuterol/Ipratropium 1 ampul 06/19/22 16:00 06/21/22 08:35 Ipratropium/Albuterol Sulfate 3 Ml Ampul.Neb IH 1 ampul Q4HRT JOSE D Administration Amlodipine Besylate 5 mg 06/19/22 10:00 06/20/22 12:11 Amlodipine 5 Mg Tab PO Not Given DAILY JOSE D Budesonide 0.5 mg 06/19/22 08:00 06/21/22 08:35 Budesonide 0.5 Mg/2 Ml Nebu IH 0.5 mg Q12HRT JOSE D Administration Cetirizine HCl 10 mg 06/19/22 10:00 06/20/22 09:46 Cetirizine 10 Mg Tab PO 10 mg QDAY JOSE D Administration Dextrose 0 ml 06/19/22 04:49 Dextrose 50% In Water (25gm) 50 Ml Syringe IV Q30MIN PRN Hypoglycemia Protocol Famotidine 20 mg 06/19/22 10:00 06/20/22 22:55 Famotidine 20 Mg Tab PO 20 mg BID JOSE D Administration Heparin Sodium (Porcine) 5,000 unit 06/19/22 10:00 06/20/22 22:45 Heparin 5,000 Unit/1 Ml Vial SUB-Q 5,000 unit Q12HR JOSE D Administration Insulin Glargine 25 units 06/19/22 10:00 06/20/22 22:45 Insulin Glargine 100 Units/Ml SUB-Q 25 units BID JOSE D Administration Insulin Human Lispro 0 unit 06/19/22 07:30 06/20/22 22:53 Insulin Lispro 100 Unit/Ml SUB-Q 4 unit ACHS JOSE D Administration Protocol Losartan Potassium 25 mg 06/19/22 10:00 06/20/22 09:46 Losartan 25 Mg Tab PO 25 mg QDAY JOSE D Administration Metformin HCl 850 mg 06/19/22 17:00 06/20/22 17:51 Metformin 850 Mg Tab PO 850 mg BIDDIAB JOSE D Administration Methylprednisolone Sodium Succinate 60 mg 06/19/22 13:00 06/21/22 06:58 Methylprednisolone Sod Succinate 125 Mg/2 Ml Inj IV 60 mg Q6HR JOSE D Administration Miscellaneous Medication 1 syr 06/19/22 05:00 Mepolizumab [Nucala] IJ QMONTH JOSE D Montelukast Sodium 10 mg 06/19/22 18:00 06/20/22 17:51 Montelukast 10 Mg Tab PO 10 mg QPM JOSE D Administration Morphine Sulfate 2 mg 06/19/22 04:45 Morphine 2 Mg/1 Ml Inj IV Q4H PRN Pain, Moderate (4-6) Morphine Sulfate 4 mg 06/19/22 04:45 Morphine 4 Mg/1 Ml Inj IV Q4H PRN Pain , Severe (7-10) Ondansetron HCl 4 mg 06/19/22 04:45 Ondansetron 4 Mg/2 Ml Inj IV Q8H PRN Nausea And Vomiting Sodium Chloride 10 ml 06/19/22 10:00 06/21/22 07:46 Sodium Chloride 0.9% 10 Ml Flush Syringe IV Not Given BID JOSE D Sodium Chloride 10 ml 06/19/22 04:45 Sodium Chloride 0.9% 10 Ml Flush Syringe IV PRN PRN LINE FLUSH Nutrition/Malnutrition Assess - Dietary Evaluation Nutrition/Malnutrition Findings: Nutrition Notes Start: 06/19/22 14:22 Freq: Status: Active Protocol: Document 06/19/22 14:22 TAVO (Rec: 06/19/22 14:33 TAVO [id number]) Nutrition Notes Need for Assessment generated from: MD Order,Education Initial or Follow up Brief Note Current Diagnosis Diabetes,Hypertension, Respiratory Failure Other Pertinent Diagnosis Asthma, OBDULIA. Current Diet Cardiac/Consistent Carbohydrates Diet (since B ). Height 4 ft 11 in Weight 88.415 kg [place] Body Weight (kg) 43.18 BMI 39.3 Intake Prior to Admission Good Weight change and time frame Pt denies having loss body weight UNHAIRER. Weight Status Obese Subjective/Other Information RD consult for nutrition education assessment. No reports available on Pt's PO intake of meals at the time . will assess at F/U. Pt is on NIV/Bi-PaP+, O2 saturation @ 94%, according to Physical Assessment history notes. Pt still in critical condition , not a candidate for Nutrition Education at the time, will assess feasibility on F/U. Percent of energy/protein needs met: Prescribed Cardiac/Consistent Carbohydrates Diet provides for energy/protein needs (1, 977 Kcal/86 g) during LOS. Nutrition Intervention Follow-Up By: 06/26/22 Additional Comments Nutrition education will be provided at F/U, if feasible. Continue monitoring food tolerance, %PO intake of meals , and BM.
[2022-06-21] MEDS: INSULIN GLARGINE 100 UNITS/ML SUB-Q SCH ×2 (09:44→22:33)
--- NOTE | 2022-06-21 11:08 | Progress Note ---
Assessment and Plan 51 y/o female with acute on chronic respiratory failure secondary to asthma exacerbation. 06/21/22: Will continue steroids at current dosing. Hopeful discharge in the next 24-36 hours. 06/20/22: Continue steroids at 60q6 at least through tomorrow. continue current neb schedule. Will continue to follow. Overall improved and likely discharge sometime over the weekend. 1. Increased steroids to 60q6 2. Stopped Proair and Brovana. Changed duonebs to q4 at least for the next 48 hours 3. Daily net negative volume state 4. BP control Subjective Date of service: 06/21/22 Interval history: No acute events Objective Vital Signs - 12hr 06/20/22 06/21/22 06/21/22 23:37 00:22 01:00 Temperature Pulse Rate 90 Pulse Rate [ 75 Anterior Bilateral Throughout] Pulse Rate [ 103 H From Monitor] Respiratory 20 Rate Respiratory 16 Rate [Anterior Bilateral Throughout] Blood Pressure O2 Sat by Pulse 96 Oximetry 06/21/22 06/21/22 03:45 07:28 Temperature 98.3 F Pulse Rate 86 Pulse Rate [ 85 Anterior Bilateral Throughout] Pulse Rate [ From Monitor] Respiratory 18 Rate Respiratory 16 Rate [Anterior Bilateral Throughout] Blood Pressure 130/74 O2 Sat by Pulse 98 Oximetry Constitutional: no acute distress, alert, other (obese) Eyes: non-icteric ENT: oropharynx moist Neck: supple Effort: normal Ascultation: Bilateral: diminished breath sounds, wheezes CBC and BMP: 06/20/22 05:08 06/20/22 05:08 ABG, PT/INR, D-dimer: ABG ABG pH 7.385 pH Units (7.350-7.450) 06/19/22 04:45 ABG pCO2 39.1 mm Hg 06/19/22 04:45 ABG pO2 97.2 mm Hg (80.0-90.0) H 06/19/22 04:45 ABG O2 Saturation 97.5 % (95.0-99.0) 06/19/22 04:45 PT/INR, D-dimer PT 12.5 Sec. (12.2-14.9) 06/19/22 01:18 INR 0.85 (0.87-1.13) L 06/19/22 01:18 Abnormal lab findings: Abnormal Labs 07/06/19/22 06/19/22 01:18 01:18 01:18 WBC 12.4 H MCH 27 L RDW 15.5 H Seg Neuts % (Manual) 84.0 H Lymphocytes % (Manual) 12.0 L Seg Neutrophils # Man 10.4 H Lymphocytes # (Manual) INR 0.85 L ABG pO2 Glucose 136 H POC Glucose Magnesium 2.80 H Urine Blood Urine WBC (Auto) 06/19/22 06/19/22 06/19/22 03:26 04:45 08:38 WBC MCH RDW Seg Neuts % (Manual) Lymphocytes % (Manual) Seg Neutrophils # Man Lymphocytes # (Manual) INR ABG pO2 97.2 H Glucose POC Glucose 205 H Magnesium Urine Blood Small A Urine WBC (Auto) 12.0 H 06/19/22 06/19/22 06/19/22 11:59 16:50 21:49 WBC MCH RDW Seg Neuts % (Manual) Lymphocytes % (Manual) Seg Neutrophils # Man Lymphocytes # (Manual) INR ABG pO2 Glucose POC Glucose 206 H 169 H 162 H Magnesium Urine Blood Urine WBC (Auto) 06/20/22 06/20/22 06/20/22 05:08 05:08 07:41 WBC 19.7 H MCH 26 L RDW 15.5 H Seg Neuts % (Manual) 93.0 H Lymphocytes % (Manual) 1.0 L Seg Neutrophils # Man 18.3 H Lymphocytes # (Manual) 0.2 L INR ABG pO2 Glucose 177 H POC Glucose 163 H Magnesium Urine Blood Urine WBC (Auto) 06/20/22 06/20/22 06/20/22 11:52 17:05 21:33 WBC MCH RDW Seg Neuts % (Manual) Lymphocytes % (Manual) Seg Neutrophils # Man Lymphocytes # (Manual) INR ABG pO2 Glucose POC Glucose 159 H 194 H 220 H Magnesium Urine Blood Urine WBC (Auto) 06/21/22 07:26 WBC MCH RDW Seg Neuts % (Manual) Lymphocytes % (Manual) Seg Neutrophils # Man Lymphocytes # (Manual) INR ABG pO2 Glucose POC Glucose 173 H Magnesium Urine Blood Urine WBC (Auto)
[2022-06-21] MEDS: MONTELUKAST 10 MG TAB PO SCH (17:10)
[2022-06-22] MEDS: methylPREDNISolone Sod Succinate 125 MG/2 ML INJ IV SCH ×2 (00:47→06:13)
[2022-06-22] MEDS: BUDESONIDE 0.5 MG/2 ML NEBU IH SCH (08:25)
[2022-06-22] MEDS: IPRATROPIUM/ALBUTEROL SULFATE 3 ML AMPUL.NEB IH SCH ×2 (08:25→12:54)
[2022-06-22] MEDS ORDERED: methylPREDNISolone Sod Succinate 125 MG/2 ML INJ IV SCH (10:00)
[2022-06-22] MEDS: amLODIPine 5 MG TAB PO SCH (10:32)
[2022-06-22] MEDS: FAMOTIDINE 20 MG TAB PO SCH (10:32)
[2022-06-22] MEDS: LOSARTAN 25 MG TAB PO SCH (10:32)
[2022-06-22] MEDS: CETIRIZINE 10 MG TAB PO SCH (10:32)
[2022-06-22] MEDS: INSULIN GLARGINE 100 UNITS/ML SUB-Q SCH (10:32)
[2022-06-22] MEDS: HEPARIN 5,000 UNIT/1 ML VIAL SUB-Q SCH (10:33)
[2022-06-22] MEDS: metFORMIN 850 MG TAB PO SCH (10:36)
[2022-06-22] MEDS: INSULIN LISPRO 100 UNIT/ML SUB-Q SCH ×2 (10:36→11:54)
--- NOTE | 2022-06-22 12:12 | Progress Note ---
Assessment and Plan 51 y/o female with acute on chronic respiratory failure secondary to asthma exacerbation. 06/22/22: Prolong steroids taper as discussed with IMS. No objection to discharge. Follow up with Bessie as regularly scheduled. 06/21/22: Will continue steroids at current dosing. Hopeful discharge in the next 24-36 hours. 06/20/22: Continue steroids at 60q6 at least through tomorrow. continue current neb schedule. Will continue to follow. Overall improved and likely discharge sometime over the weekend. 1. Increased steroids to 60q6 2. Stopped Proair and Brovana. Changed duonebs to q4 at least for the next 48 hours 3. Daily net negative volume state 4. BP control Subjective Date of service: 06/22/22 Interval history: No acute events. Going home today. Objective Vital Signs - 12hr 06/22/22 06/22/22 06/22/22 02:00 05:27 07:42 Temperature 98.1 F 97.7 F Pulse Rate 85 102 H Pulse Rate [ Anterior Bilateral Throughout] Respiratory 18 18 Rate Respiratory Rate [Anterior Bilateral Throughout] Respiratory 20 Rate [ GENERALIZED] Blood Pressure 132/76 Blood Pressure 115/61 [Left] O2 Sat by Pulse 93 98 Oximetry 06/22/22 06/22/22 06/22/22 08:20 08:28 10:32 Temperature Pulse Rate 102 H Pulse Rate [ 102 H Anterior Bilateral Throughout] Respiratory Rate Respiratory 18 Rate [Anterior Bilateral Throughout] Respiratory Rate [ GENERALIZED] Blood Pressure 132/76 Blood Pressure [Left] O2 Sat by Pulse 99 Oximetry Constitutional: no acute distress, alert, other (obese) Eyes: non-icteric ENT: oropharynx moist Neck: supple Effort: normal Ascultation: Bilateral: diminished breath sounds, wheezes CBC and BMP: 06/20/22 05:08 06/20/22 05:08 ABG, PT/INR, D-dimer: ABG ABG pH 7.385 pH Units (7.350-7.450) 06/19/22 04:45 ABG pCO2 39.1 mm Hg 06/19/22 04:45 ABG pO2 97.2 mm Hg (80.0-90.0) H 06/19/22 04:45 ABG O2 Saturation 97.5 % (95.0-99.0) 06/19/22 04:45 PT/INR, D-dimer PT 12.5 Sec. (12.2-14.9) 06/19/22 01:18 INR 0.85 (0.87-1.13) L 06/19/22 01:18 Abnormal lab findings: Abnormal Labs 06/19/22 06/19/22 06/19/22 01:18 01:18 01:18 WBC 12.4 H MCH 27 L RDW 15.5 H Seg Neuts % (Manual) 84.0 H Lymphocytes % (Manual) 12.0 L Seg Neutrophils # Man 10.4 H Lymphocytes # (Manual) INR 0.85 L ABG pO2 Glucose 136 H POC Glucose Magnesium 2.80 H Urine Blood Urine WBC (Auto) 06/19/22 06/19/22 06/19/22 03:26 04:45 08:38 WBC MCH RDW Seg Neuts % (Manual) Lymphocytes % (Manual) Seg Neutrophils # Man Lymphocytes # (Manual) INR ABG pO2 97.2 H Glucose POC Glucose 205 H Magnesium Urine Blood Small A Urine WBC (Auto) 12.0 H 06/19/22 06/19/22 06/19/22 11:59 16:50 21:49 WBC MCH RDW Seg Neuts % (Manual) Lymphocytes % (Manual) Seg Neutrophils # Man Lymphocytes # (Manual) INR ABG pO2 Glucose POC Glucose 206 H 169 H 162 H Magnesium Urine Blood Urine WBC (Auto) 06/20/22 06/20/22 06/20/22 05:08 05:08 07:41 WBC 19.7 H MCH 26 L RDW 15.5 H Seg Neuts % (Manual) 93.0 H Lymphocytes % (Manual) 1.0 L Seg Neutrophils # Man 18.3 H Lymphocytes # (Manual) 0.2 L INR ABG pO2 Glucose 177 H POC Glucose 163 H Magnesium Urine Blood Urine WBC (Auto) 06/20/22 06/20/22 06/20/22 11:52 17:05 21:33 WBC MCH RDW Seg Neuts % (Manual) Lymphocytes % (Manual) Seg Neutrophils # Man Lymphocytes # (Manual) INR ABG pO2 Glucose POC Glucose 159 H 194 H 220 H Magnesium Urine Blood Urine WBC (Auto) 06/21/22 06/21/22 06/21/22 07:26 11:22 15:53 WBC MCH RDW Seg Neuts % (Manual) Lymphocytes % (Manual) Seg Neutrophils # Man Lymphocytes # (Manual) INR ABG pO2 Glucose POC Glucose 173 H 202 H 166 H Magnesium Urine Blood Urine WBC (Auto) 06/21/22 06/22/22 06/22/22 20:13 07:41 11:06 WBC MCH RDW Seg Neuts % (Manual) Lymphocytes % (Manual) Seg Neutrophils # Man Lymphocytes # (Manual) INR ABG pO2 Glucose POC Glucose 240 H 183 H 227 H Magnesium Urine Blood Urine WBC (Auto)
[2022-06-22 12:40] VITALS: BP 131/69
--- NOTE | 2022-06-22 12:46 | Discharge Summary ---
Providers - Providers Date of Admission: 06/19/22 04:45 Date of discharge: 06/22/22 Attending physician: RAHEL GARCIA MD 06/19/22 04:49 Consult to Dietitian/Nutrition [CONS] Routine Physician Instructions: Reason For Exam: Reason for Consult: Diet education 06/19/22 08:11 Consult to Physician [CONS] Routine Comment: Consulting Provider: TERRY AMBRIZ Physician Instructions: Reason For Exam: Acute asthma exacerbation Primary care physician: MACHINE II CUTTER Hospitalization Reason for admission: Acute asthma exacerbation, acute hypoxic respiratory failure Condition: Stable Pertinent studies: Reviewed. Procedures: None. Hospital course: Patient is a 51-year-old female with past medical history of difficult to control asthma (endotracheal intubation x5) and obesity who presented with shortness of breath over the previous days with significant worsening on the day of presentation. Patient described using her inhaler multiple times a day. She denied any cough, fever, sick contacts, but she endorsed environmental changes that might have been the etiology for her acute asthma exacerbation. On presentation patient was found to be tachycardic with a heart rate of 140. She presented with significant wheezing and diminished breath sounds, prompting a discussion about possible intubation. The patient refused, she was initiated on BiPAP with IV magnesium, IV methylprednisolone, DuoNeb's, and albuterol nebs. Patient was admitted to the hospitalist service for management of acute asthma exacerbation. Pulmonology was consulted for further management. The patient has since been successfully weaned to room air. Patient will be discharging home with steroid taper to be completed over the next 9 days. The patient expressed understanding. Patient is medically clear for discharge. Disposition: 01 HOME / SELF CARE / HOMELESS Final Discharge Diagnosis (Prints w/discharge instructions): Acute asthma exacerbation, acute hypoxic respiratory failure, insulin-dependent type 2 diabetes mellitus with hyperglycemia, hypertension, morbid obesity, obstructive sleep apnea. Time spent for discharge: 45 min Core Measure Documentation - Palliative Care Palliative Care/ Comfort Measures: Not Applicable - Core Measures Any of the following diagnoses?: none Exam - Constitutional Vitals: Temp Pulse Resp BP Pulse Ox 97.9 F 94 H 18 131/69 98 06/22/22 11:08 06/22/22 11:08 06/22/22 11:08 06/22/22 11:08 06/22/22 11:08 General appearance: Present: no acute distress, well-nourished - EENT Eyes: Present: PERRL, EOM intact ENT: hearing intact, clear oral mucosa, dentition normal - Neck Neck: Present: supple, normal ROM - Respiratory Respiratory effort: normal Respiratory: bilateral: CTA - Cardiovascular Rhythm: regular Heart Sounds: Present: S1 & S2 - Extremities Extremities: no ischemia, pulses intact, pulses symmetrical, No edema, normal temperature, normal color, Full ROM Peripheral Pulses: within normal limits - Abdominal General gastrointestinal: Present: soft, non-tender, non-distended, normal bowel sounds Female genitourinary: Present: deferred - Rectal Rectal Exam: deferred - Integumentary Integumentary: Present: clear, warm, dry - Musculoskeletal Musculoskeletal: strength equal bilaterally - Psychiatric Psychiatric: appropriate mood/affect, intact judgment & insight, memory intact, cooperative - Neurologic Neurologic: CNII-XII intact, moves all extremities - Allied Health Allied health notes reviewed: nursing Plan Activity: no restrictions Diet: low salt, diabetic Additional Instructions: Patient is a 51-year-old female with past medical history of difficult to control asthma (endotracheal intubation x5) and obesity who presented with shortness of breath over the previous days with significant worsening on the day of presentation. Patient described using her inhaler multiple times a day. She denied any cough, fever, sick contacts, but she endorsed environmental changes that might have been the etiology for her acute asthma exacerbation. On presentation patient was found to be tachycardic with a heart rate of 140. She presented with significant wheezing and diminished breath sounds, prompting a discussion about possible intubation. The patient refused, she was initiated on BiPAP with IV magnesium, IV methylprednisolone, DuoNeb's, and albuterol nebs. Patient was admitted to the hospitalist service for management of acute asthma exacerbation. Pulmonology was consulted for further management. The patient has since been successfully weaned to room air. Patient will be discharging home with steroid taper to be completed over the next 9 days. The patient expressed understanding. Patient is medically clear for discharge. Care Plan Goals: Patient is medically cleared for discharge. Assessment: Patient is a 51-year-old female with past medical history of difficult to control asthma (endotracheal intubation x5) and obesity who presented with shortness of breath over the previous days with significant worsening on the day of presentation. Patient described using her inhaler multiple times a day. She denied any cough, fever, sick contacts, but she endorsed environmental changes that might have been the etiology for her acute asthma exacerbation. On presentation patient was found to be tachycardic with a heart rate of 140. She presented with significant wheezing and diminished breath sounds, prompting a discussion about possible intubation. The patient refused, she was initiated on BiPAP with IV magnesium, IV methylprednisolone, DuoNeb's, and albuterol nebs. Patient was admitted to the hospitalist service for management of acute asthma exacerbation. Pulmonology was consulted for further management. The patient has since been successfully weaned to room air. Patient will be discharging home with steroid taper to be completed over the next 9 days. The patient expressed understanding. Patient is medically clear for discharge. Follow up with: PRIMARY CARE, [Primary Care Provider] - 3-5 Days Prescriptions: Mepolizumab [Nucala] 1 syr IJ QMONTH #1 syr Cetirizine HCl [Allergy] 10 mg PO QDAY #30 tab amLODIPine 5 mg PO DAILY #30 tab Losartan [Cozaar] 25 mg PO QDAY #30 tablet metFORMIN [Glucophage] 850 mg PO BIDDIAB #60 tablet ALBUTEROL NEB's [Proventil 0.083% NEBS] 2.5 mg IH QID PRN #2 inh PRN Reason: Wheezing Albuterol Sulfate [Proventil Hfa] 2 puff IH Q4H #2 inh
== END 2022-06-22 14:20 | disposition home or self-care (01) | DRG 189 ==
LOC: ED 00:44 → 4A 04:45
PROVIDERS: ADMIT Hospitalist; ATTEND Student in an Organized Health Care Education/Training Program
PROC: 4A033R1 Measurement of Arterial Saturation, Peripheral, Percutaneous Approach (ICD-10-PCS; principal; 2022-06-19)
PROC: 5A09457 Assistance with Respiratory Ventilation, 24-96 Consecutive Hours, Continuous Positive Airway Pressure (ICD-10-PCS; 2022-06-19)
DX: J96.21 Acute and chronic respiratory failure with hypoxia (principal); J45.901 Unspecified asthma with (acute) exacerbation; Z68.41 Body mass index [BMI] 40.0-44.9, adult; I10 Essential (primary) hypertension; G47.33 Obstructive sleep apnea (adult) (pediatric); E11.9 Type 2 diabetes mellitus without complications; E66.01 Morbid (severe) obesity due to excess calories; Z71.3 Dietary counseling and surveillance; Z91.018 Allergy to other foods; Z82.49 Family history of ischemic heart disease and other diseases of the circulatory system; Z79.4 Long term (current) use of insulin
CPT/HCPCS: 36415; 36600; 71045; 80048; 80053; 81001; 82140; 82803; 82962; 83690; 83735; 84484; 85007; 85025; 85610; 87086; 93005; 94640; 94644; 94660; 94760; G0378; Q9967; J0696; J1644; J1815; J2930; J7030

== ENCOUNTER 2022-07-17 22:15 | Inpatient (IN) | payer OTHER, MEDICARE ==
--- NOTE | 2022-07-17 22:50 | Emergency Department Report ---
ED Shortness of Breath HPI - General Chief Complaint: Dyspnea/Respdistress Stated Complaint: SOB/COVID + Time Seen by Provider: 07/17/22 22:46 Source: EMS Mode of arrival: Stretcher Limitations: No Limitations - History of Present Illness Initial Comments: Patient is a 51-year-old female with significant past medical history of asthma. Patient has very severe asthma exacerbations. Patient states she was at [facility] earlier today in the emergency department. She states that she was given one continuous treatment told she was positive for COVID-19 and then discharged from the emergency department. Patient has a previous admission here to the emergency department in which I saw the patient in May. At that time patient was in severe acute hypoxic respiratory failure requiring BiPAP. Patient states that she has not had any symptoms of COVID including fever but does note she has shortness of breath that feels secondary to her known asthma. She denies any COVID exposures. - Related Data Home Medications Medication Instructions Recorded Confirmed Last Taken Cholecalciferol Vit D3 [Vitamin D3 1,000 unit PO QDAY 02/24/22 06/19/22 06/18/22 1,000 UNIT TAB] Fluticasone/Umeclidin/Vilanter 1 each IH QDAY 06/19/22 06/19/22 06/18/22 [Trelegy Ellipta 100-62.5-25] Insulin Aspart (Nf) [NovoLOG 7 units SQ TIDAC 06/19/22 06/19/22 06/18/22 Flexpen] Insulin Detemir [Levemir Flextouch] 35 unit SQ QDAY 06/19/22 06/19/22 06/18/22 Semaglutide [Ozempic] 2.5 mg SQ QWEEK 06/19/22 06/19/22 06/13/22 Previous Rx's Medication Instructions Recorded Last Taken Type ALBUTEROL NEB's [Proventil 0.083% 2.5 mg IH QID PRN #2 inh 06/22/22 Unknown Rx NEBS] Albuterol Sulfate [Proventil Hfa] 2 puff IH Q4H #2 inh 06/22/22 Unknown Rx Cetirizine HCl [Allergy] 10 mg PO QDAY #30 tab 06/22/22 Unknown Rx Losartan [Cozaar] 25 mg PO QDAY #30 tablet 06/22/22 Unknown Rx Mepolizumab [Nucala] 1 syr IJ QMONTH #1 syr 06/22/22 Unknown Rx amLODIPine 5 mg PO DAILY #30 tab 06/22/22 Unknown Rx metFORMIN [Glucophage] 850 mg PO BIDDIAB #60 tablet 06/22/22 Unknown Rx predniSONE [Deltasone] 20 mg PO QDAY #18 tab 06/22/22 Unknown Rx Allergies Allergy/AdvReac Type Severity Reaction Status Date / Time wheat Allergy Unknown Verified 06/19/22 16:03 ED Review of Systems ROS: Stated complaint: SOB/COVID + Other details as noted in HPI Constitutional: denies: chills, fever Eyes: denies: eye pain, eye discharge, vision change ENT: denies: ear pain, throat pain Respiratory: shortness of breath, wheezing. denies: cough Cardiovascular: denies: chest pain, palpitations, edema Endocrine: no symptoms reported Gastrointestinal: denies: abdominal pain, nausea, diarrhea Genitourinary: denies: urgency, dysuria, discharge Musculoskeletal: denies: back pain, joint swelling, arthralgia Skin: denies: rash, lesions Neurological: denies: headache, weakness, paresthesias Psychiatric: denies: anxiety, depression Hematological/Lymphatic: denies: easy bleeding, easy bruising ED Past Medical Hx - Past Medical History Previous Medical History?: Yes Hx Hypertension: Yes Hx Congestive Heart Failure: No Hx Diabetes: Yes Hx Asthma: Yes Hx COPD: Yes (multiple admissions COPD exacerbation) Hx Tuberculosis: No Hx HIV: No Additional medical history: (5) previous intubations due to asthma complications - Surgical History Past Surgical History?: Yes Additional Surgical History: tubal ligation - Social History Smoking Status: Unknown if ever smoked Substance Use Type: None - Medications Home Medications: Home Medications Medication Instructions Recorded Confirmed Last Taken Type Cholecalciferol Vit D3 [Vitamin D3 1,000 unit PO QDAY 02/24/22 06/19/22 06/18/22 History 1,000 UNIT TAB] Fluticasone/Umeclidin/Vilanter 1 each IH QDAY 06/19/22 06/19/22 06/18/22 History [Trelegy Ellipta 100-62.5-25] Insulin Aspart (Nf) [NovoLOG 7 units SQ TIDAC 06/19/22 06/19/22 06/18/22 History Flexpen] Insulin Detemir [Levemir Flextouch] 35 unit SQ QDAY 06/19/22 06/19/22 06/18/22 History Semaglutide [Ozempic] 2.5 mg SQ QWEEK 06/19/22 06/19/22 06/13/22 History ALBUTEROL NEB's [Proventil 0.083% 2.5 mg IH QID PRN #2 inh 06/22/22 Unknown Rx NEBS] Albuterol Sulfate [Proventil Hfa] 2 puff IH Q4H #2 inh 06/22/22 Unknown Rx Cetirizine HCl [Allergy] 10 mg PO QDAY #30 tab 06/22/22 Unknown Rx Losartan [Cozaar] 25 mg PO QDAY #30 tablet 06/22/22 Unknown Rx Mepolizumab [Nucala] 1 syr IJ QMONTH #1 syr 06/22/22 Unknown Rx amLODIPine 5 mg PO DAILY #30 tab 06/22/22 Unknown Rx metFORMIN [Glucophage] 850 mg PO BIDDIAB #60 tablet 06/22/22 Unknown Rx predniSONE [Deltasone] 20 mg PO QDAY #18 tab 06/22/22 Unknown Rx ED Physical Exam - General Limitations: No Limitations General appearance: alert, in distress - Head Head exam: Present: atraumatic, normocephalic - Eye Eye exam: Present: normal appearance - ENT ENT exam: Present: mucous membranes moist - Neck Neck exam: Present: normal inspection - Respiratory Respiratory exam: Present: respiratory distress, wheezes - Cardiovascular Cardiovascular Exam: Present: tachycardia. Absent: systolic murmur, diastolic murmur, rubs, gallop - GI/Abdominal GI/Abdominal exam: Present: soft, normal bowel sounds - Extremities Exam Extremities exam: Present: normal inspection - Back Exam Back exam: Present: normal inspection - Neurological Exam Neurological exam: Present: alert, oriented X3 - Psychiatric Psychiatric exam: Present: normal affect, normal mood - Skin Skin exam: Present: warm, dry, intact, normal color. Absent: rash ED Course Vital Signs 07/17/22 07/17/22 07/18/22 22:30 23:47 00:28 Temperature 99.4 F Pulse Rate 127 H 114 H Pulse Rate [ Bilateral] Respiratory 26 H 20 Rate Respiratory Rate [Bilateral ] Blood Pressure 201/124 152/86 Blood Pressure [Left] O2 Sat by Pulse 98 99 99 Oximetry 07/18/22 07/18/22 00:36 01:20 Temperature Pulse Rate 112 H Pulse Rate [ 110 H Bilateral] Respiratory 19 Rate Respiratory 24 Rate [Bilateral ] Blood Pressure Blood Pressure 148/115 [Left] O2 Sat by Pulse 98 Oximetry - Reevaluation(s) Reevaluation #1: 07/18/22 01:58 Patient is markedly improved. Patient's heart rate was improved to 109 and patient's breath sounds more clear. Plan for admission to the intermediate care unit. I have spoken to the hospitalist for admission. ED Medical Decision Making - Lab Data Result diagrams: 07/17/22 23:32 07/17/22 23:32 - EKG Data -: EKG Interpreted by Me Rate: tachycardia - Radiology Data Radiology results: report reviewed, image reviewed - Medical Decision Making Patient is a 51-year-old female with past medical history significant for asthma. She presents to the emergency department today with complaints of shortness of breath. Patient appears in acute respiratory distress likely secondary to an asthma exacerbation. Plan to give albuterol, magnesium, ipratropium, Solu-Medrol and reassess. At this time patient also to be placed on BiPAP and she will likely be admitted for further management. Critical care attestation.: If time is entered above; I have spent that time in minutes in the direct care of this critically ill patient, excluding procedure time. ED Disposition Clinical Impression: UTI (urinary tract infection), Asthma exacerbation, COVID-19 Disposition: 09 ADMITTED INPATIENT Is pt being admited?: Yes Does the pt Need Aspirin: No Condition: Serious
[2022-07-17] MEDS ORDERED: methylPREDNISolone Sod Succinate 125 MG/2 ML INJ IV ONE (23:02)
[2022-07-17] MEDS ORDERED: MAGNESIUM SULFATE 2 GM/50 ML BAG IV ONE (23:02)
[2022-07-17] MEDS ORDERED: IPRATROPIUM 0.02% NEBU 2.5 ML IH ONE (23:02)
[2022-07-17] MEDS ORDERED: SODIUM CHLORIDE 0.9% 1000 ML 1,000 ML IV ONE (23:02)
[2022-07-17] MEDS ORDERED: ALBUTEROL 2.5 MG/3 ML NEBU IH ONE ×2 (23:07)
[2022-07-17 23:53] LABS: Hematocrit 39.9 % (30.3-42.9); Hemoglobin 12.9 gm/dl (10.1-14.3); Mean Corpuscular HGB Conc 32 % (30-34); Mean Corpuscular Volume 87 fl (79-97); Platelet Count 278 K/mm3 (140-440); Red Blood Count 4.61 M/mm3 (3.65-5.03); Red Cell Distribution Width 15.4 % (13.2-15.2)
--- NOTE | 2022-07-18 00:04 | XRay Report ---
CHEST 1 VIEW INDICATION / CLINICAL INFORMATION: Dyspnea. COMPARISON: Chest x-ray 06/19/2022 FINDINGS: SUPPORT DEVICES: None. HEART / MEDIASTINUM: Heart size is within normal limits. Mediastinal contour demonstrates no signific ant abnormality. LUNGS / PLEURA: Lungs are clear for degree of inspiration and technique utilized. BONES: No significant osseous abnormality. ADDITIONAL FINDINGS: No significant additional findings. IMPRESSION: 1. No active cardiopulmonary disease. Signer Name: Latrell Paz II, MD Signed: 07/18/2022 12:00 AM Workstation Name: [id number]
[2022-07-18 00:07] LABS: INR 0.89 (0.87-1.13); Partial Thromboplastin Time 25.2 Sec. (24.2-36.6)
[2022-07-18 00:16] LABS: Bacteria,Urine 2+ /HPF (Negative); Mucus,Urine 2+ /HPF
[2022-07-18 00:16] LABS: Alanine Aminotransferase 22 units/L (7-56); Albumin 4.5 g/dL (3.9-5); BUN/Creatinine Ratio 16; Blood Urea Nitrogen 13 mg/dL (7-17); Calcium 9.4 mg/dL (8.4-10.2); Hemolysis Index 2
[2022-07-18 00:23] LABS: Color,Urine Yellow (Yellow)
[2022-07-18 00:48] LABS: Band Neutrophils # (Manual) 0.4 K/mm3; Basophils % (Manual) 0 % (0.0-1.8); Eosinophils % (Manual) 0 % (0.0-4.3); Platelet Estimate Consistent w Auto; Total Cells Counted 100
[2022-07-18] MEDS ORDERED: cefTRIAXone/NS 1 GM/50 ML 1 GM/50 ML BAG IV ONE (01:09)
[2022-07-18] MEDS ORDERED: ACETAMINOPHEN 325 MG TAB PO PRN ×2 (01:49→03:25)
[2022-07-18] MEDS ORDERED: oxyCODONE /ACETAMINOPHEN 5-325MG TAB PO PRN (01:49)
[2022-07-18] MEDS ORDERED: ONDANSETRON 4 MG/2 ML INJ IV PRN ×2 (01:49→03:25)
[2022-07-18] MEDS ORDERED: MORPHINE 4 MG/1 ML INJ IV PRN ×2 (01:49→03:25)
[2022-07-18] MEDS ORDERED: MORPHINE 2 MG/1 ML INJ IV PRN (03:25)
[2022-07-18] MEDS ORDERED: ALBUTEROL 2.5 MG/3 ML NEBU IH PRN ×2 (03:25→03:31)
[2022-07-18] MEDS ORDERED: DEXTROSE 50% IN WATER (25GM) 50 ML SYRINGE IV PRN (03:25)
--- NOTE | 2022-07-18 03:37 | History and Physical Report ---
History of Present Illness Date of examination: 07/18/22 Date of admission: 07/18/22 01:49 Chief complaint: Dyspnea Respiratory distress History of present illness: 51-year-old female with significant past medical history of asthma and multiple intubation was brought to the emergency department because of very severe asthma exacerbations. Patient was at [facility] earlier today in the emergency department. She states that she was given one continuous treatment told she was positive for COVID-19 and then discharged from the emergency department. Patient has a previous admission here to the emergency department in which I saw the patient in May. At that time patient was in severe acute hypoxic respiratory failure requiring BiPAP. Patient states that she has not had any symptoms of COVID including fever but does note she has shortness of breath that feels secondary to her known asthma. She denies any COVID exposures. In the emergency room patient WBC is 13.0, chest x-ray shows no acute cardiopulmonary disease. Patient is found to have acute respiratory failure/acute asthma exacerbation and COVID-19 Past History Past Medical History: hypertension, other (Asthma, multiple intubation) Past Surgical History: Other (Tubal ligation) Social history: no significant social history Family history: hypertension Medications and Allergies Allergies Allergy/AdvReac Type Severity Reaction Status Date / Time wheat Allergy Unknown Verified 06/19/22 16:03 Home Medications Medication Instructions Recorded Confirmed Last Taken Type Cholecalciferol Vit D3 [Vitamin D3 1,000 unit PO QDAY 02/24/22 06/19/22 06/18/22 History 1,000 UNIT TAB] Fluticasone/Umeclidin/Vilanter 1 each IH QDAY 06/19/22 06/19/22 06/18/22 History [Trelegy Ellipta 100-62.5-25] Insulin Aspart (Nf) [NovoLOG 7 units SQ TIDAC 06/19/22 06/19/22 06/18/22 History Flexpen] Insulin Detemir [Levemir Flextouch] 35 unit SQ QDAY 06/19/22 06/19/22 06/18/22 History Semaglutide [Ozempic] 2.5 mg SQ QWEEK 06/19/22 06/19/22 06/13/22 History ALBUTEROL NEB's [Proventil 0.083% 2.5 mg IH QID PRN #2 inh 06/22/22 Unknown Rx NEBS] Albuterol Sulfate [Proventil Hfa] 2 puff IH Q4H #2 inh 06/22/22 Unknown Rx Cetirizine HCl [Allergy] 10 mg PO QDAY #30 tab 06/22/22 Unknown Rx Losartan [Cozaar] 25 mg PO QDAY #30 tablet 06/22/22 Unknown Rx Mepolizumab [Nucala] 1 syr IJ QMONTH #1 syr 06/22/22 Unknown Rx amLODIPine 5 mg PO DAILY #30 tab 06/22/22 Unknown Rx metFORMIN [Glucophage] 850 mg PO BIDDIAB #60 tablet 06/22/22 Unknown Rx predniSONE [Deltasone] 20 mg PO QDAY #18 tab 06/22/22 Unknown Rx Active Meds: Active Medications Acetaminophen (Acetaminophen 325 Mg Tab) 650 mg PO Q4H PRN PRN Reason: Pain MILD(1-3)/Fever >100.5/BOOKER Morphine Sulfate (Morphine 4 Mg/1 Ml Inj) 4 mg IV Q4H PRN PRN Reason: Pain , Severe (7-10) Ondansetron HCl (Ondansetron 4 Mg/2 Ml Inj) 4 mg IV Q8H PRN PRN Reason: Nausea And Vomiting Oxycodone/Acetaminophen (Oxycodone /Acetaminophen 5-325mg Tab) 1 tab PO Q6H PRN PRN Reason: Pain, Moderate (4-6) Sodium Chloride (Sodium Chloride 0.9% 10 Ml Flush Syringe) 10 ml IV BID JOSE D Sodium Chloride (Sodium Chloride 0.9% 10 Ml Flush Syringe) 10 ml IV PRN PRN PRN Reason: LINE FLUSH Review of Systems All systems: negative Cardiovascular: shortness of breath, dyspnea on exertion Respiratory: shortness of breath, dyspnea on exertion, congestion, wheezing Exam - Constitutional Vitals: Temp Pulse Resp BP Pulse Ox 99.4 F 112 H 19 148/115 98 07/17/22 22:30 07/18/22 01:20 07/18/22 01:20 07/18/22 01:20 07/18/22 01:20 General appearance: Present: no acute distress, well-nourished - EENT Eyes: Present: PERRL ENT: hearing intact, clear oral mucosa - Neck Neck: Present: supple, normal ROM - Respiratory Respiratory effort: normal Respiratory: bilateral: CTA, wheezing - Cardiovascular Heart Sounds: Present: S1 & S2. Absent: rub, click - Extremities Extremities: pulses symmetrical, No edema Peripheral Pulses: within normal limits - Abdominal General gastrointestinal: Present: soft, non-tender, non-distended, normal bowel sounds Female genitourinary: Present: normal - Integumentary Integumentary: Present: clear, warm, dry - Musculoskeletal Musculoskeletal: gait normal, strength equal bilaterally - Psychiatric Psychiatric: appropriate mood/affect, intact judgment & insight - Neurologic Neurologic: CNII-XII intact, moves all extremities HEART Score - HEART Score Troponin: Troponin T < 0.010 ng/mL (0.00-0.029) 07/17/22 23:32 Results - Labs CBC & Chem 7: 07/17/22 23:32 07/17/22 23:32 Labs: Laboratory Last Values WBC 13.0 K/mm3 (4.5-11.0) H 07/17/22 23:32 RBC 4.61 M/mm3 (3.65-5.03) 07/17/22 23:32 Hgb 12.9 gm/dl (10.1-14.3) 07/17/22 23:32 Hct 39.9 % (30.3-42.9) 07/17/22 23:32 MCV 87 fl (79-97) 07/17/22 23:32 MCH 28 pg (28-32) 07/17/22 23:32 MCHC 32 % (30-34) 07/17/22 23:32 RDW 15.4 % (13.2-15.2) H 07/17/22 23:32 Plt Count 278 K/mm3 (140-440) 07/17/22 23:32 Add Manual Diff Complete 07/17/22 23:32 Total Counted 100 07/17/22 23:32 Seg Neuts % (Manual) 79.0 % (40.0-70.0) H 07/17/22 23:32 Band Neutrophils % 3.0 % 07/17/22 23:32 Lymphocytes % (Manual) 14.0 % (13.4-35.0) 07/17/22 23:32 Reactive Lymphs % (Man) 0 % 07/17/22 23:32 Monocytes % (Manual) 2.0 % (0.0-7.3) 07/17/22 23:32 Eosinophils % (Manual) 0 % (0.0-4.3) 07/17/22 23:32 Basophils % (Manual) 0 % (0.0-1.8) 07/17/22 23:32 Metamyelocytes % 2.0 % 07/17/22 23:32 Myelocytes % 0 % 07/17/22 23:32 Promyelocytes % 0 % 07/17/22 23:32 Blast Cells % 0 % 07/17/22 23:32 Nucleated RBC % Not Reportable 07/17/22 23:32 Seg Neutrophils # Man 10.3 K/mm3 (1.8-7.7) H 07/17/22 23:32 Band Neutrophils # 0.4 K/mm3 07/17/22 23:32 Lymphocytes # (Manual) 1.8 K/mm3 (1.2-5.4) 07/17/22 23:32 Abs React Lymphs (Man) 0.0 K/mm3 07/17/22 23:32 Monocytes # (Manual) 0.3 K/mm3 (0.0-0.8) 07/17/22 23:32 Eosinophils # (Manual) 0.0 K/mm3 (0.0-0.4) 07/17/22 23:32 Basophils # (Manual) 0.0 K/mm3 (0.0-0.1) 07/17/22 23:32 Metamyelocytes # 0.3 K/mm3 07/17/22 23:32 Myelocytes # 0.0 K/mm3 07/17/22 23:32 Promyelocytes # 0.0 K/mm3 07/17/22 23:32 Blast Cells # 0.0 K/mm3 07/17/22 23:32 WBC Morphology Not Reportable 07/17/22 23:32 Hypersegmented Neuts Not Reportable 07/17/22 23:32 Hyposegmented Neuts Not Reportable 07/17/22 23:32 Hypogranular Neuts Not Reportable 07/17/22 23:32 Smudge Cells Not Reportable 07/17/22 23:32 Toxic Granulation Not Reportable 07/17/22 23:32 Toxic Vacuolation Not Reportable 07/17/22 23:32 Dohle Bodies Not Reportable 07/17/22 23:32 Pelger-Huet Anomaly Not Reportable 07/17/22 23:32 Elvin Rods Not Reportable 07/17/22 23:32 Platelet Estimate Consistent w auto 07/17/22 23:32 Clumped Platelets Not Reportable 07/17/22 23:32 Plt Clumps, EDTA Not Reportable 07/17/22 23:32 Large Platelets Not Reportable 07/17/22 23:32 Giant Platelets Not Reportable 07/17/22 23:32 Platelet Satelliting Not Reportable 07/17/22 23:32 Plt Morphology Comment Not Reportable 07/17/22 23:32 RBC Morphology Not Reportable 07/17/22 23:32 Dimorphic RBCs Not Reportable 07/17/22 23:32 Polychromasia Not Reportable 07/17/22 23:32 Hypochromasia Not Reportable 07/17/22 23:32 Poikilocytosis Not Reportable 07/17/22 23:32 Anisocytosis Not Reportable 07/17/22 23:32 Microcytosis Not Reportable 07/17/22 23:32 Macrocytosis Not Reportable 07/17/22 23:32 Spherocytes Not Reportable 07/17/22 23:32 Pappenheimer Bodies Not Reportable 07/17/22 23:32 Sickle Cells Not Reportable 07/17/22 23:32 Target Cells Not Reportable 07/17/22 23:32 Tear Drop Cells Not Reportable 07/17/22 23:32 Ovalocytes Not Reportable 07/17/22 23:32 Helmet Cells Not Reportable 07/17/22 23:32 [place] Bodies Not Reportable 07/17/22 23:32 [place] Rings Not Reportable 07/17/22 23:32 Yusra Cells Not Reportable 07/17/22 23:32 Bite Cells Not Reportable 07/17/22 23:32 Crenated Cell Not Reportable 07/17/22 23:32 Elliptocytes Not Reportable 07/17/22 23:32 Acanthocytes (Spur) Not Reportable 07/17/22 23:32 Rouleaux Not Reportable 07/17/22 23:32 Hemoglobin C Crystals Not Reportable 07/17/22 23:32 Schistocytes Not Reportable 07/17/22 23:32 Malaria parasites Not Reportable 07/17/22 23:32 Sean Bodies Not Reportable 07/17/22 23:32 Hem Pathologist Commnt No 07/17/22 23:32 PT 13.0 Sec. (12.2-14.9) 07/17/22 23:32 INR 0.89 (0.87-1.13) 07/17/22 23:32 APTT 25.2 Sec. (24.2-36.6) 07/17/22 23:32 Sodium 141 mmol/L (137-145) 07/17/22 23:32 Potassium 4.0 mmol/L (3.6-5.0) 07/17/22 23:32 Chloride 102.3 mmol/L (98-107) 07/17/22 23:32 Carbon Dioxide 27 mmol/L (22-30) 07/17/22 23:32 Anion Gap 16 mmol/L 07/17/22 23:32 BUN 13 mg/dL (7-17) 07/17/22 23:32 Creatinine 0.8 mg/dL (0.6-1.2) 07/17/22 23:32 Estimated GFR > 60 ml/min 07/17/22 23:32 BUN/Creatinine Ratio 16 % 07/17/22 23:32 Glucose 137 mg/dL (65-100) H 07/17/22 23:32 Lactic Acid 1.60 mmol/L (0.7-2.0) 07/17/22 23:32 Calcium 9.4 mg/dL (8.4-10.2) 07/17/22 23:32 Magnesium 2.00 mg/dL (1.7-2.3) 07/17/22 23:32 Total Bilirubin 0.50 mg/dL (0.1-1.2) 07/17/22 23:32 AST 20 units/L (5-40) 07/17/22 23:32 ALT 22 units/L (7-56) 07/17/22 23:32 Alkaline Phosphatase 86 units/L (35-129) 07/17/22 23:32 Troponin T < 0.010 ng/mL (0.00-0.029) 07/17/22 23:32 Total Protein 7.6 g/dL (6.3-8.2) 07/17/22 23:32 Albumin 4.5 g/dL (3.9-5) 07/17/22 23:32 Albumin/Globulin Ratio 1.5 % 07/17/22 23:32 Urine Color Yellow (Yellow) 07/17/22 Unknown Urine Turbidity Slightly cloudy (Clear) 07/17/22 Unknown Specific [place] (Man) 1.030 (1.003-1.030) 07/17/22 Unknown Ur Protein (Man) <30 mg dl mg/dL (Negative) 07/17/22 Unknown Ur Ketones (Man) Negative (Negative) 07/17/22 Unknown Ur Nitrite (Man) Negative (Negative) 07/17/22 Unknown Ur Reducing Substances Not Reportable 07/17/22 Unknown Urine Bilirubin (Man) Negative (Negative) 07/17/22 Unknown Leukocyte Esterase (Man) Negative (Negative) 07/17/22 Unknown Urine WBC (Auto) 22.0 /HPF (0.0-6.0) H 07/17/22 Unknown Urine RBC (Auto) 9.0 /HPF (0.0-6.0) 07/17/22 Unknown U Epithel Cells (Auto) 16.0 /HPF (0-13.0) H 07/17/22 Unknown Urine Bacteria (Auto) 2+ /HPF (Negative) 07/17/22 Unknown Urine RBC (Manual) 2+ (Negative) 07/17/22 Unknown Urine Mucus 2+ /HPF 07/17/22 Unknown Urine Yeast (Budding) 1+ /HPF 07/17/22 Unknown Microbiology: Microbiology 07/17/22 23:18 Peripheral/Venous Blood Culture - Preliminary Culture in Progress 07/17/22 23:32 Peripheral/Venous Blood Culture - Preliminary Culture in Progress - Imaging and Cardiology Chest x-ray: report reviewed Assessment and Plan VTE prophylaxis?: Mechanical Plan of care discussed with patient/family: Yes - Patient Problems (1) Acute respiratory failure with hypoxia Current Visit: No Status: Acute Plan to address problem: Admit the patient to the [facility]. Put the patient on BiPAP. Albuterol via nebulizer every 4 hours. DuoNeb by nebulizer every 4 hours .Solu-Medrol 40 mg IV every 6 hours. Singular 10 mg p.o. daily. Consult pulmonary Dr. Grove. (2) Acute asthma exacerbation Current Visit: Yes Status: Acute Plan to address problem: Put the patient on BiPAP. Albuterol via nebulizer every 4 hours. DuoNeb by nebulizer every 4 hours Solu-Medrol 40 mg IV every 6 hours. Singular 10 mg p.o. daily. Consult pulmonary . (3) COVID-19 Current Visit: Yes Status: Acute Plan to address problem: Rocephin 2 g IV daily. Zithromax to 50 mg p.o. daily. Solu-Medrol 40 mg IV every 8 hours. Reconsult infectious disease for evaluation (4) Diabetes Current Visit: Yes Status: Acute Plan to address problem: 1800 kcal ADA diet. Humalog sliding scale with high-dose coverage. Lantus 25 units subcu daily 12 hours. Diabetic education (5) Urinary tract infection Current Visit: Yes Status: Acute Plan to address problem: Rocephin 2 g IV daily. Zithromax to 50 mg p.o. daily. We do the blood culture and urine culture (6) Hypertension Current Visit: No Status: Chronic Plan to address problem: Hydralazine 10 mg IV every 6 hours as needed. We will continue the home medication (7) DVT prophylaxis Current Visit: No Status: Acute Plan to address problem: Heparin 5000 units subcu every 12 hours for DVT prophylaxis. Pepcid 20 mg p.o. twice daily for GI prophylaxis. Patient is a full code
[2022-07-18] MEDS ORDERED: hydrALAZINE 20 MG/1 ML INJ IV PRN (03:40)
[2022-07-18] MEDS: methylPREDNISolone Sod Succinate 40 MG/1 ML INJ IV SCH ×3 (06:04→22:20)
[2022-07-18] MEDS: INSULIN LISPRO 100 UNIT/ML SUB-Q SCH ×4 (08:38→22:19)
[2022-07-18] MEDS: IPRATROPIUM/ALBUTEROL SULFATE 3 ML AMPUL.NEB IH SCH ×3 (08:55→20:53)
[2022-07-18] MEDS: amLODIPine 5 MG TAB PO SCH (09:59)
[2022-07-18] MEDS: CETIRIZINE 10 MG TAB PO SCH (09:59)
[2022-07-18] MEDS: INSULIN GLARGINE 100 UNITS/ML SUB-Q SCH (09:59)
[2022-07-18] MEDS: LOSARTAN 25 MG TAB PO SCH (09:59)
[2022-07-18] MEDS ORDERED: NON-FORMULARY EACH (Fluticasone/Umeclidin/Vilanter [Trelegy Ellipta 100-62.5-25] 1 EACH Bl IH SCH (10:00)
[2022-07-18] MEDS: FAMOTIDINE 20 MG TAB PO SCH ×2 (10:00→22:19)
[2022-07-18] MEDS ORDERED: AZITHROMYCIN 250 MG TAB PO SCH (10:00)
[2022-07-18] MEDS ORDERED: NON-FORMULARY EACH (Insulin Detemir [Levemir Flextouch] 100 UNIT/ML Insuln.Pen) SQ SCH (10:00)
--- NOTE | 2022-07-18 10:40 | Electrocardiograph Report ---
[facility] Test Date: 2022-07-17 Test Time: 23:33:18 Pat Name: RONY SHARPE Department: Room: A265 1 Gender: F [employer]: NURSE : 1970 Requested By: JARRETT CULLEN Order Number: [id number] Reading MD: Juvencio Mcgee Measurements Intervals [place] Rate: 121 P: 75 IA: 122 QRS: 7 QRSD: 75 T: 50 QT: 318 QTc: 452 Interpretive Statements Sinus tachycardia Probable left atrial enlargement RSR' IN V1 OR V2, PROBABLY NORMAL VARIANT Compared to ECG 06/19/2022 14:03:42 Myocardial infarct finding now present Electronically Signed On 07-18-2022 10:40:13 EDT by Juvencio Mcgee
[2022-07-18 13:04] LABS: C-Reactive Protein 2.5 mg/dL (0.00-1.30)
--- NOTE | 2022-07-18 13:30 | Consultation ---
History of Present Illness Consult date: 07/18/22 Reason for consult: other (acute on chronic respiratory failure secondary to COVID) History of present illness: 51 y/o female with severe persistent asthma on chronic steroids and monoclonal antibody therapy presented with acute on chronic respiratory failure after testing positive at [place] facility. She as not admitted. not sure what the rapy administered but discharged. Progressively got worse, so came to ED here at [facility], now admitted. Required bipap but has since been weaned to nasal cannula. Past History Past Medical History: diabetes, hypertension, other (Asthma, multiple intubation) Past Surgical History: Other (Tubal ligation) Social history: no significant social history Family history: hypertension Medications and Allergies Allergies Allergy/AdvReac Type Severity Reaction Status Date / Time wheat Allergy Unknown Verified 07/18/22 06:24 Home Medications Medication Instructions Recorded Confirmed Last Taken Type Cholecalciferol Vit D3 [Vitamin D3 1,000 unit PO QDAY 02/24/22 07/18/22 06/18/22 History 1,000 UNIT TAB] Fluticasone/Umeclidin/Vilanter 1 each IH QDAY 06/19/22 07/18/22 06/18/22 History [Trelegy Ellipta 100-62.5-25] Insulin Detemir [Levemir Flextouch] 25 unit SQ QDAY 06/19/22 07/18/22 06/18/22 History Semaglutide [Ozempic] 0.5 mg SQ QWEEK 06/19/22 07/18/22 06/13/22 History ALBUTEROL NEB's [Proventil 0.083% 2.5 mg IH QID PRN #2 inh 06/22/22 07/18/22 Unknown Rx NEBS] Albuterol Sulfate [Proventil Hfa] 2 puff IH Q4H #2 inh 06/22/22 07/18/22 Unknown Rx Cetirizine HCl [Allergy] 10 mg PO QDAY #30 tab 06/22/22 07/18/22 Unknown Rx Losartan [Cozaar] 25 mg PO QDAY #30 tablet 06/22/22 07/18/22 Unknown Rx Mepolizumab [Nucala] 1 syr IJ QMONTH #1 syr 06/22/22 07/18/22 Unknown Rx amLODIPine 5 mg PO DAILY #30 tab 06/22/22 07/18/22 Unknown Rx metFORMIN [Glucophage] 850 mg PO BIDDIAB #60 tablet 06/22/22 07/18/22 Unknown Rx Meloxicam [Mobic] 15 mg PO QDAY 07/18/22 07/18/22 Unknown History Active Meds: Active Medications Acetaminophen (Acetaminophen 325 Mg Tab) 650 mg PO Q4H PRN PRN Reason: Pain MILD(1-3)/Fever >100.5/BOOKER Albuterol (Albuterol 2.5 Mg/3 Ml Nebu) 2.5 mg IH Q3HRT PRN PRN Reason: Shortness Of Breath Albuterol/Ipratropium (Ipratropium/Albuterol Sulfate 3 Ml Ampul.Neb) 1 ampul IH Q6HRT [facility] Amlodipine Besylate (Amlodipine 5 Mg Tab) 5 mg PO DAILY [facility] Last Admin: 07/18/22 09:59 Dose: 5 mg Arformoterol Tartrate (Arformoterol 15 Mcg/2 Ml Nebu) 15 mcg IH Q12HRT [facility] Azithromycin (Azithromycin 250 Mg Tab) 500 mg PO QDAY [facility]; Protocol Last Admin: 07/18/22 10:00 Dose: 500 mg Budesonide (Budesonide 0.5 Mg/2 Ml Nebu) 0.5 mg IH Q12HRT [facility] Cetirizine HCl (Cetirizine 10 Mg Tab) 10 mg PO QDAY [facility] Last Admin: 07/18/22 09:59 Dose: 10 mg Dextrose (Dextrose 50% In Water (25gm) 50 Ml Syringe) 50 ml IV Q30MIN PRN; Protocol PRN Reason: Hypoglycemia Famotidine (Famotidine 20 Mg Tab) 20 mg PO BID [facility] Last Admin: 07/18/22 10:00 Dose: 20 mg Hydralazine HCl (Hydralazine 20 Mg/1 Ml Inj) 10 mg IV Q6H PRN PRN Reason: SBP >/=160; DBP >/=100 Ceftriaxone Sodium (Rocephin/Ns 2 Gm/100 Ml) 2 gm in 100 mls @ 200 mls/hr IV Q24H [facility]; Protocol Last Admin: 07/18/22 13:21 Dose: 200 mls/hr Insulin Glargine (Insulin Glargine 100 Units/Ml) 35 units SUB-Q DAILY [facility] Last Admin: 07/18/22 09:59 Dose: 35 units Insulin Human Lispro (Insulin Lispro 100 Unit/Ml) 0 unit SUB-Q ACHS [facility]; Protocol Last Admin: 07/18/22 13:22 Dose: 3 unit Losartan Potassium (Losartan 25 Mg Tab) 25 mg PO QDAY [facility] Last Admin: 07/18/22 09:59 Dose: 25 mg Methylprednisolone Sodium Succinate (Methylprednisolone Sod Succinate 40 Mg/1 Ml Inj) 40 mg IV Q8HR [facility] Last Admin: 07/18/22 13:21 Dose: 40 mg Montelukast Sodium (Montelukast 10 Mg Tab) 10 mg PO QHS [facility] Morphine Sulfate (Morphine 2 Mg/1 Ml Inj) 2 mg IV Q4H PRN PRN Reason: Pain, Moderate (4-6) Morphine Sulfate (Morphine 4 Mg/1 Ml Inj) 4 mg IV Q4H PRN PRN Reason: Pain , Severe (7-10) Ondansetron HCl (Ondansetron 4 Mg/2 Ml Inj) 4 mg IV Q8H PRN PRN Reason: Nausea And Vomiting Oxycodone/Acetaminophen (Oxycodone /Acetaminophen 5-325mg Tab) 1 tab PO Q6H PRN PRN Reason: Pain, Moderate (4-6) Sodium Chloride (Sodium Chloride 0.9% 10 Ml Flush Syringe) 10 ml IV BID [facility] Last Admin: 07/18/22 10:00 Dose: 10 ml Sodium Chloride (Sodium Chloride 0.9% 10 Ml Flush Syringe) 10 ml IV PRN PRN PRN Reason: LINE FLUSH Review of Systems All systems: negative Physical Examination Vital signs: Vital Signs Temp Pulse Resp BP Pulse Ox 99.4 F 127 H 26 H 201/124 98 07/17/22 22:30 07/17/22 22:30 07/17/22 22:30 07/17/22 22:30 07/17/22 22:30 Results - Laboratory Findings CBC and BMP: 07/17/22 23:32 07/17/22 23:32 PT/INR, D-dimer PT 13.0 Sec. (12.2-14.9) 07/17/22 23:32 INR 0.89 (0.87-1.13) 07/17/22 23:32 Abnormal lab findings: Abnormal Labs 07/17/22 07/17/22 07/17/22 23:32 23:32 Unknown WBC 13.0 H RDW 15.4 H Seg Neuts % (Manual) 79.0 H Seg Neutrophils # Man 10.3 H Glucose 137 H POC Glucose Lactate Dehydrogenase C-Reactive Protein Urine WBC (Auto) 22.0 H U Epithel Cells (Auto) 16.0 H 07/18/22 07/18/22 07:41 11:50 WBC RDW Seg Neuts % (Manual) Seg Neutrophils # Man Glucose POC Glucose 190 H Lactate Dehydrogenase 300 H C-Reactive Protein 2.50 H Urine WBC (Auto) U Epithel Cells (Auto) - Diagnostic Findings Chest x-ray: image reviewed (stable, unchanged) Assessment and Plan 51 y/o female with severe persistent asthma with flare secondary to COVID 1. Higher than normal doses of COVID as patient has severe asthma 2. Await ID recs but given lung disease in favor of Remdesivir 3. Suggest checking CRP as well to see if Actemra is needed 4. Prone as tolerated during the day and sleep prone at night 5. 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 Thank you for consult, will continue to follow with you.
[2022-07-18] MEDS ORDERED: cefTRIAXone/NS 2 GM/100 ML 2 GM/100 ML BAG IV SCH (14:00)
[2022-07-18 15:21] LABS: Hyaline Casts,Urine 48 /LPF; Renal Epithelial Cells,Urine 1 /LPF
--- NOTE | 2022-07-18 18:06 | Event Note ---
Date: 07/18/22 This is a 51-year-old female with hypertension, steroid-induced diabetes, severe asthma with multiple exacerbations s/p multiple intubations who presented to emergency department on 07/17 via EMS due to respiratory distress. Patient states that she was seen at [facility] and discharged from the emergency department after being told she was COVID-positive. Patient returned home and symptoms worsened therefore she called EMS. Work-up in the emergency department revealed leukocytosis, CXR showed no acute cardiopulmonary disease and due to respiratory distress patient was started on BiPAP. Patient was admitted to the hospitalist service with acute on chronic respiratory failure, asthma exacerbation and COVID-19 infection with consults to pulmonology. Hospital course to date: 07/18: Patient weaned from BiPAP to nasal cannula, COVID-19 PCR positive. Started on remdesivir, infectious disease consulted. Antibiotics discontinued due to low procalcitonin. CRP 2.5, will defer to ID regarding starting Actemra. Likely transfer to floor tomorrow morning. Assessment/plan: This is a 51-year-old female with severe asthma, HTN and steroid-induced diabetes admitted with acute on chronic hypoxic respiratory failure and COVID-19 infection. Neuro: NAD -Reorientation as needed -Maintain sleep-wake cycle -As needed analgesia Cardiac: h/o HTN -Continue home amlodipine and Cozaar -Blood pressure monitoring per protocol Respiratory: Acute on chronic hypoxic respiratory failure , h/o severe asthma -Pulmonology consulted, appreciate recommendations -S/p continuous BiPAP -Weaned to nasal cannula during the day -BiPAP nightly -Atrovent, Pulmicort, Brovana -Solu-Medrol 40 mg every 8 -Continue home Singulair -SPO2 monitor per protocol -Supplemental oxygen as needed -Pulmonary hygiene GI: Obesity -CC diet -BR: Colace : NAD -Monitor intake and output -Renally dose medications -Avoid nephrotoxic medications -Trend BMP ID: COVID 19 infection -Infectious disease consulted, appreciate recommendation -COVID 19 PCR (+) -Of note patient was diagnosed with COVID-19 at [place] but discharged home -Antibiotic therapy discontinued -Procalcitonin less than 0.05, CRP 2.5 -07/18 remdesivir for 5 days -Solu-Medrol 40 mg every 8 hours -Contact/droplet precautions -f/u blood culture -Monitor WBC and temperature curve -Of note patient is not vaccinated against COVID-19 -Trend COVID-19 inflammatory markers Endo: h/o steroid-induced diabetes -Avoid hypoglycemia -SSI -Accu-Cheks q. ACHS -Long-acting insulin, titrate as needed Heme: Leukocytosis -Trend CBC -Transfuse hemoglobin less than 7 -SCDs to BLE while in bed The high probability of a clinically significant, sudden or life threatening deterioration of the [pulm/ID] system(s) required my full and direct attention, intervention and personal management. The aggregate critical care time was [60] minutes. This time is in addition to time spent performing reported procedures but includes the following: [x] Data Review and interpretation [x] Patient assessment and monitoring of vital signs [x] Documentation [x] Medication orders and management
--- NOTE | 2022-07-18 18:46 | Consultation ---
History of Present Illness - Reason for Consult Consult date: 07/18/22 - History of Present Illness 51-year-old female past medical history asthma, recurrent intubations presented to hospital with severe asthma exacerbations. She was recently seen at [facility] and was tested for COVID which returned positive. She now presents this hospital in respiratory failure requiring BiPAP. Afebrile, white count 13. COVID-19 positive in-house as well. Procalcitonin normal. Normal renal function. CRP mildly elevated 2.5. Blood cultures no growth so far. Currently on methylprednisolone, Remdesivir. On BiPAP. Imaging personally reviewed: Chest x-ray: No acute infiltrates. Review of systems: Deferred to reduce to the risk of transmission of COVID-19 Past History Past Medical History: diabetes, hypertension, other (Asthma, multiple intubatio n) Past Surgical History: Other (Tubal ligation) Social history: no significant social history Family history: hypertension Medications and Allergies Allergies Allergy/AdvReac Type Severity Reaction Status Date / Time wheat Allergy Unknown Verified 07/18/22 06:24 Home Medications Medication Instructions Recorded Confirmed Last Taken Type Cholecalciferol Vit D3 [Vitamin D3 1,000 unit PO QDAY 02/24/22 07/18/22 06/18/22 History 1,000 UNIT TAB] Fluticasone/Umeclidin/Vilanter 1 each IH QDAY 06/19/22 07/18/22 06/18/22 History [Treletoan Ellipta 100-62.5-25] Insulin Detemir [Levemir Flextouch] 25 unit SQ QDAY 06/19/22 07/18/22 06/18/22 History Semaglutide [Ozempic] 0.5 mg SQ QWEEK 06/19/22 07/18/22 06/13/22 History ALBUTEROL NEB's [Proventil 0.083% 2.5 mg IH QID PRN #2 inh 06/22/22 07/18/22 Unknown Rx NEBS] Albuterol Sulfate [Proventil Hfa] 2 puff IH Q4H #2 inh 06/22/22 07/18/22 Unknown Rx Cetirizine HCl [Allergy] 10 mg PO QDAY #30 tab 06/22/22 07/18/22 Unknown Rx Losartan [Cozaar] 25 mg PO QDAY #30 tablet 06/22/22 07/18/22 Unknown Rx Mepolizumab [Nucala] 1 syr IJ QMONTH #1 syr 06/22/22 07/18/22 Unknown Rx amLODIPine 5 mg PO DAILY #30 tab 06/22/22 07/18/22 Unknown Rx metFORMIN [Glucophage] 850 mg PO BIDDIAB #60 tablet 06/22/22 07/18/22 Unknown Rx Meloxicam [Mobic] 15 mg PO QDAY 07/18/22 07/18/22 Unknown History Active Meds: Active Medications Acetaminophen (Acetaminophen 325 Mg Tab) 650 mg PO Q4H PRN PRN Reason: Pain MILD(1-3)/Fever >100.5/BOOKER Albuterol (Albuterol 2.5 Mg/3 Ml Nebu) 2.5 mg IH Q3HRT PRN PRN Reason: Shortness Of Breath Albuterol/Ipratropium (Ipratropium/Albuterol Sulfate 3 Ml Ampul.Neb) 1 ampul IH Q6HRT [facility] Last Admin: 07/18/22 14:40 Dose: 1 ampul Amlodipine Besylate (Amlodipine 5 Mg Tab) 5 mg PO DAILY [facility] Last Admin: 07/18/22 09:59 Dose: 5 mg Arformoterol Tartrate (Arformoterol 15 Mcg/2 Ml Nebu) 15 mcg IH Q12HRT JO[facility] D Budesonide (Budesonide 0.5 Mg/2 Ml Nebu) 0.5 mg IH Q12HRT JOSE D Cetirizine HCl (Cetirizine 10 Mg Tab) 10 mg PO QDAY [facility] Last Admin: 07/18/22 09:59 Dose: 10 mg Dextrose (Dextrose 50% In Water (25gm) 50 Ml Syringe) 50 ml IV Q30MIN PRN; Protocol PRN Reason: Hypoglycemia Docusate Sodium (Docusate Sodium 100 Mg Cap) 100 mg PO BID JOSE D Enoxaparin Sodium (Enoxaparin 40 Mg/0.4 Ml Inj) 40 mg SUB-Q QDAY [facility]; Protocol Famotidine (Famotidine 20 Mg Tab) 20 mg PO BID [facility] Last Admin: 07/18/22 10:00 Dose: 20 mg Hydralazine HCl (Hydralazine 20 Mg/1 Ml Inj) 10 mg IV Q6H PRN PRN Reason: SBP >/=160; DBP >/=100 Remdesivir 200 mg/ Sodium (Chloride) 250 mls @ 500 mls/hr IV ONCE ONE Stop: 07/18/22 20:29 Remdesivir 100 mg/ Sodium (Chloride) 250 mls @ 500 mls/hr IV Q24HR@1400 [facility] Stop: 07/22/22 14:29 Insulin Glargine (Insulin Glargine 100 Units/Ml) 35 units SUB-Q DAILY [facility] Last Admin: 07/18/22 09:59 Dose: 35 units Insulin Human Lispro (Insulin Lispro 100 Unit/Ml) 0 unit SUB-Q ACHS JOSE D; P rotocol Last Admin: 07/18/22 17:07 Dose: 3 unit Losartan Potassium (Losartan 25 Mg Tab) 25 mg PO QDAY [facility] Last Admin: 07/18/22 09:59 Dose: 25 mg Methylprednisolone Sodium Succinate (Methylprednisolone Sod Succinate 40 Mg/1 Ml Inj) 40 mg IV Q8HR [facility] Last Admin: 07/18/22 13:21 Dose: 40 mg Montelukast Sodium (Montelukast 10 Mg Tab) 10 mg PO QHS [facility] Morphine Sulfate (Morphine 2 Mg/1 Ml Inj) 2 mg IV Q4H PRN PRN Reason: Pain, Moderate (4-6) Morphine Sulfate (Morphine 4 Mg/1 Ml Inj) 4 mg IV Q4H PRN PRN Reason: Pain , Severe (7-10) Ondansetron HCl (Ondansetron 4 Mg/2 Ml Inj) 4 mg IV Q8H PRN PRN Reason: Nausea And Vomiting Oxycodone/Acetaminophen (Oxycodone /Acetaminophen 5-325mg Tab) 1 tab PO Q6H PRN PRN Reason: Pain, Moderate (4-6) Sodium Chloride (Sodium Chloride 0.9% 10 Ml Flush Syringe) 10 ml IV BID [facility] Last Admin: 07/18/22 10:00 Dose: 10 ml Sodium Chloride (Sodium Chloride 0.9% 10 Ml Flush Syringe) 10 ml IV PRN PRN PRN Reason: LINE FLUSH Sodium Chloride (Sodium Chloride 0.9% 50 Ml Ivpb) 50 ml IV Q24HR@1400 [facility] Stop: 07/22/22 14:01 Physical Examination - Physical Exam Narrative exam: Physical exam deferred to reduce risk of transmission of COVID-19. Please refer to primary team's note. - Constitutional Vitals: Vital Signs Temp Pulse Resp BP Pulse Ox 98.9 F 104 H 18 91/55 99 07/18/22 12:00 07/18/22 16:00 07/18/22 16:00 07/18/22 08:55 07/18/22 16:00 Temperature -Last 24 Hours Temperature 98.9 F Temperature 99.4 F Results - Labs CBC & Chem 7: 07/17/22 23:32 07/17/22 23:32 Labs: Abnormal lab results 07/17/22 07/17/22 07/17/22 Range/Units 23:32 23:32 Unknown WBC 13.0 H (4.5-11.0) K/mm3 RDW 15.4 H (13.2-15.2) % Seg Neuts % (Manual) 79.0 H (40.0-70.0) % Seg Neutrophils # Man 10.3 H (1.8-7.7) K/mm3 Glucose 137 H (65-100) mg/dL POC Glucose (70-105) mg/dL Lactate Dehydrogenase (91-180) units/L C-Reactive Protein (0.00-1.30) mg/dL Urine WBC (Auto) 22.0 H (0.0-6.0) /HPF U Epithel Cells (Auto) 16.0 H (0-13.0) /HPF Coronavirus (PCR) (Negative) 07/18/22 07/18/22 07/18/22 Range/Units 07:41 09:45 11:50 WBC (4.5-11.0) K/mm3 RDW (13.2-15.2) % Seg Neuts % (Manual) (40.0-70.0) % Seg Neutrophils # Man (1.8-7.7) K/mm3 Glucose (65-100) mg/dL POC Glucose 190 H (70-105) mg/dL Lactate Dehydrogenase 300 H (91-180) units/L C-Reactive Protein 2.50 H (0.00-1.30) mg/dL Urine WBC (Auto) (0.0-6.0) /HPF U Epithel Cells (Auto) (0-13.0) /HPF Coronavirus (PCR) Positive A (Negative) 07/18/22 07/18/22 Range/Units 12:28 16:45 WBC (4.5-11.0) K/mm3 RDW (13.2-15.2) % Seg Neuts % (Manual) (40.0-70.0) % Seg Neutrophils # Man (1.8-7.7) K/mm3 Glucose (65-100) mg/dL POC Glucose 180 H 159 H (70-105) mg/dL Lactate Dehydrogenase (91-180) units/L C-Reactive Protein (0.00-1.30) mg/dL Urine WBC (Auto) (0.0-6.0) /HPF U Epithel Cells (Auto) (0-13.0) /HPF Coronavirus (PCR) (Negative) Assessment and Plan Cultures: Blood culture no growth so far COVID-19 PCR positive A/P: 51-year-old female past medical history asthma now with: #Severe COVID-19 pneumonia: Patient presented with a week of symptoms, chest x-ray normal, admission O2 sats decreased on room air. Inflammatory markers elevated #Acute hypoxemic respiratory failure: Likely secondary to COVID-19 infection. Currently on BiPAP #asthma: Currently on methylprednisolone Recommendations: -Dexamethasone 6 mg IV/PO daily for 10 days -Remdesivir 200 mg IV q day x 1 followed by 100 mg IV q day x 4 days -Obtain q48-72h inflammatory markers - ferritin, Ddimer, CRP, LDH -Anticoagulation per hospital protocol -Proning as able Thank you for the consult, we will continue to follow. MD [facility] O: [phone] F: [phone]
[2022-07-18] MEDS ORDERED: REMDESIVIR 200 MG in SODIUM CHLORIDE 0.9% 250ML 250 ML IV ONE (20:00)
[2022-07-18 20:28] LABS: Alanine Aminotransferase 22 units/L (7-56); Albumin 4.1 g/dL (3.9-5); BUN/Creatinine Ratio 13; Blood Urea Nitrogen 13 mg/dL (7-17); Calcium 9.6 mg/dL (8.4-10.2); Hemolysis Index 4
[2022-07-18] MEDS: SODIUM CHLORIDE 0.9% 50 ML IVPB IV SCH (20:40)
[2022-07-18] MEDS: BUDESONIDE 0.5 MG/2 ML NEBU IH SCH (21:35)
[2022-07-18] MEDS: ARFORMOTEROL 15 MCG/2 ML NEBU IH SCH (21:36)
[2022-07-18] MEDS: MONTELUKAST 10 MG TAB PO SCH (22:19)
[2022-07-18] MEDS: DOCUSATE SODIUM 100 MG CAP PO SCH (22:19)
[2022-07-19] MEDS: IPRATROPIUM/ALBUTEROL SULFATE 3 ML AMPUL.NEB IH SCH ×4 (01:47→20:51)
[2022-07-19 05:04] LABS: Hematocrit 37.2 % (30.3-42.9); Hemoglobin 11.7 gm/dl (10.1-14.3); Mean Corpuscular HGB Conc 31 % (30-34); Mean Corpuscular Volume 87 fl (79-97); Platelet Count 260 K/mm3 (140-440); Red Blood Count 4.28 M/mm3 (3.65-5.03)
[2022-07-19 05:20] LABS: Alanine Aminotransferase 20 units/L (7-56); Albumin 3.9 g/dL (3.9-5); BUN/Creatinine Ratio 15; Blood Urea Nitrogen 15 mg/dL (7-17); Calcium 9.4 mg/dL (8.4-10.2); Hemolysis Index 8
[2022-07-19] MEDS: methylPREDNISolone Sod Succinate 40 MG/1 ML INJ IV SCH ×3 (05:33→23:03)
[2022-07-19 06:03] LABS: Basophils % (Manual) 0 % (0.0-1.8); Eosinophils % (Manual) 0 % (0.0-4.3); RBC Morphology Normal; Total Cells Counted 100
[2022-07-19] MEDS: ARFORMOTEROL 15 MCG/2 ML NEBU IH SCH ×2 (08:55→20:51)
[2022-07-19] MEDS: BUDESONIDE 0.5 MG/2 ML NEBU IH SCH ×2 (08:55→20:51)
--- NOTE | 2022-07-19 09:22 | Progress Note ---
Assessment and Plan 51 y/o female with severe persistent asthma with flare secondary to COVID 07/19/22: Continue steroids. Monitor blood sugar. Transition to COVID floor. 1. Higher than normal doses of COVID as patient has severe asthma 2. Await ID recs but given lung disease in favor of Remdesivir 3. Suggest checking CRP as well to see if Actemra is needed 4. Prone as tolerated during the day and sleep prone at night 5. 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 Thank you for consult, will continue to follow with you. Subjective Date of service: 07/19/22 Interval history: No acute events. Breathing continues to improve. Objective Vital Signs - 12hr 07/18/22 07/18/22 07/18/22 22:00 22:30 23:00 Temperature 98.6 F Pulse Rate 102 H 91 H Pulse Rate [ Bilateral] Pulse Rate [ From Monitor] Respiratory 18 15 Rate Respiratory Rate [Bilateral ] Blood Pressure 137/76 89/46 O2 Sat by Pulse 99 100 Oximetry 07/18/22 07/19/22 07/19/22 23:07 00:00 01:00 Temperature Pulse Rate 91 H 89 84 Pulse Rate [ Bilateral] Pulse Rate [ 89 From Monitor] Respiratory 16 16 16 Rate Respiratory Rate [Bilateral ] Blood Pressure 137/76 120/71 122/72 O2 Sat by Pulse 100 97 98 Oximetry 07/19/22 07/19/22 07/19/22 01:49 01:52 02:00 Temperature Pulse Rate 89 82 Pulse Rate [ 89 Bilateral] Pulse Rate [ From Monitor] Respiratory 17 14 Rate Respiratory 17 Rate [Bilateral ] Blood Pressure 126/71 129/71 O2 Sat by Pulse 100 97 Oximetry 07/19/22 07/19/22 07/19/22 03:00 04:00 05:00 Temperature 97.6 F Pulse Rate 83 82 73 Pulse Rate [ Bilateral] Pulse Rate [ 82 From Monitor] Respiratory 14 16 17 Rate Respiratory Rate [Bilateral ] Blood Pressure 118/68 128/78 128/73 O2 Sat by Pulse 97 98 99 Oximetry 07/19/22 07/19/22 06:00 08:56 Temperature Pulse Rate 81 Pulse Rate [ 93 H Bilateral] Pulse Rate [ From Monitor] Respiratory 15 Rate Respiratory 18 Rate [Bilateral ] Blood Pressure 123/74 O2 Sat by Pulse 99 92 Oximetry CBC and BMP: 07/19/22 04:35 07/19/22 04:35 ABG, PT/INR, D-dimer: PT/INR, D-dimer PT 13.0 Sec. (12.2-14.9) 07/17/22 23:32 INR 0.89 (0.87-1.13) 07/17/22 23:32 D-Dimer 135.00 ng/mlDDU (0-234) 07/18/22 19:59 Abnormal lab findings: Abnormal Labs 07/17/22 07/17/22 07/17/22 23:32 23:32 Unknown WBC 13.0 H MCH RDW 15.4 H Seg Neuts % (Manual) 79.0 H Lymphocytes % (Manual) Seg Neutrophils # Man 10.3 H Glucose 137 H POC Glucose Lactate Dehydrogenase C-Reactive Protein Urine WBC (Auto) 22.0 H U Epithel Cells (Auto) 16.0 H Coronavirus (PCR) 07/18/22 07/18/22 07/18/22 07:41 09:45 11:50 WBC MCH RDW Seg Neuts % (Manual) Lymphocytes % (Manual) Seg Neutrophils # Man Glucose POC Glucose 190 H Lactate Dehydrogenase 300 H C-Reactive Protein 2.50 H Urine WBC (Auto) U Epithel Cells (Auto) Coronavirus (PCR) Positive A 07/18/22 07/18/22 07/18/22 12:28 16:45 19:59 WBC MCH RDW Seg Neuts % (Manual) Lymphocytes % (Manual) Seg Neutrophils # Man Glucose POC Glucose 180 H 159 H Lactate Dehydrogenase 274 H C-Reactive Protein Urine WBC (Auto) U Epithel Cells (Auto) Coronavirus (PCR) 07/18/22 07/18/22 07/19/22 19:59 22:05 04:35 WBC 20.0 H MCH 27 L RDW Seg Neuts % (Manual) 87.0 H Lymphocytes % (Manual) 9.0 L Seg Neutrophils # Man 17.4 H Glucose 204 H POC Glucose 164 H Lactate Dehydrogenase C-Reactive Protein Urine WBC (Auto) U Epithel Cells (Auto) Coronavirus (PCR) 07/19/22 07/19/22 04:35 08:18 WBC MCH RDW Seg Neuts % (Manual) Lymphocytes % (Manual) Seg Neutrophils # Man Glucose 171 H POC Glucose 155 H Lactate Dehydrogenase C-Reactive Protein Urine WBC (Auto) U Epithel Cells (Auto) Coronavirus (PCR)
[2022-07-19] MEDS ORDERED: ENOXAPARIN 30 MG/0.3 ML INJ SUB-Q SCH (10:00)
[2022-07-19] MEDS: INSULIN GLARGINE 100 UNITS/ML SUB-Q SCH (10:12)
[2022-07-19] MEDS: INSULIN LISPRO 100 UNIT/ML SUB-Q SCH ×4 (10:12→23:02)
[2022-07-19] MEDS: amLODIPine 5 MG TAB PO SCH (10:12)
[2022-07-19] MEDS: FAMOTIDINE 20 MG TAB PO SCH ×2 (10:13→23:02)
[2022-07-19] MEDS: ENOXAPARIN 40 MG/0.4 ML INJ SUB-Q SCH (10:13)
[2022-07-19] MEDS: LOSARTAN 25 MG TAB PO SCH (10:13)
[2022-07-19] MEDS: CETIRIZINE 10 MG TAB PO SCH (10:13)
[2022-07-19] MEDS: DOCUSATE SODIUM 100 MG CAP PO SCH ×2 (10:13→23:02)
--- NOTE | 2022-07-19 13:43 | Progress Note ---
Assessment and Plan Assessment and plan: This is a 51-year-old female with hypertension, steroid-induced diabetes, severe asthma with multiple exacerbations s/p multiple intubations who presented to emergency department on 07/17 via EMS due to respiratory distress. Patient states that she was seen at [facility] and discharged from the emergency department after being told she was COVID-positive. Patient returned home and symptoms worsened therefore she called EMS. Work-up in the emergency department revealed leukocytosis, CXR showed no acute cardiopulmonary disease and due to respiratory distress patient was started on BiPAP. Patient was admitted to the hospitalist service with acute on chronic respiratory failure, asthma exa cerbation and COVID-19 infection with consults to pulmonology. Hospital course to date: 07/18: Patient weaned from BiPAP to nasal cannula, COVID-19 PCR positive. Started on remdesivir, infectious disease consulted. Antibiotics discontinued due to low procalcitonin. CRP 2.5, will defer to ID regarding starting Actemra. Likely transfer to floor tomorrow morning. 07/19: On room air. downgrade to med/surg. Possible d/c tomorrow if patient respiratory status/VSS remain stable. Assessment/plan: This is a 51-year-old female with severe asthma, HTN and steroid-induced diabetes admitted with acute on chronic hypoxic respiratory failure and COVID-19 infection. Neuro: NAD -Reorientation as needed -Maintain sleep-wake cycle -As needed analgesia Cardiac: h/o HTN -Continue home amlodipine and Cozaar -Blood pressure monitoring per protocol Respiratory: Acute on chronic hypoxic respiratory failure , h/o severe asthma -Pulmonology consulted, appreciate recommendations -S/p continuous BiPAP -Weaned to nasal cannula during the day -BiPAP nightly -Atrovent, Pulmicort, Brovana -Solu-Medrol 40 mg every 8 -Continue home Singulair -SPO2 monitor per protocol -Supplemental oxygen as needed -Pulmonary hygiene GI: Morbid Obesity - BMI 41 - Counseled patient on the importance of weight loss, incorporating exercise, and dietary changes (lean meats, fresh fruits and vegetables, and water intake). Patient expresses understanding. - Time: +15 min -CC diet -BR: Colace : NAD -Monitor intake and output -Renally dose medications -Avoid nephrotoxic medications -Trend BMP ID: COVID 19 infection -Infectious disease consulted, appreciate recommendation -COVID 19 PCR (+) -Of note patient was diagnosed with COVID-19 at [place] but discharged home -Antibiotic therapy discontinued -Procalcitonin less than 0.05, CRP 2.5 -07/18 remdesivir for 5 days -Solu-Medrol 40 mg every 8 hours -Contact/droplet precautions -f/u blood culture -Monitor WBC and temperature curve -Of note patient is not vaccinated against COVID-19 -Trend COVID-19 inflammatory markers Endo: h/o steroid-induced diabetes -Avoid hypoglycemia -SSI -Accu-Cheks q. ACHS -Long-acting insulin, titrate as needed Heme: Leukocytosis -Trend CBC -Transfuse hemoglobin less than 7 -SCDs to BLE while in bed The high probability of a clinically significant, sudden or life threatening de terioration of the [pulm/ID] system(s) required my full and direct attention, intervention and personal management. The aggregate critical care time was [60] minutes. This time is in addition to time spent performing reported procedures but includes the following: [x] Data Review and interpretation [x] Patient assessment and monitoring of vital signs [x] Documentation [x] Medication orders and management Disposition Plan: Transferred to [facility] floor bed History Interval history: No overnight events, patient resting comfortably on my encounter. Vital signs stable on encounter. Patient tolerating room air well no acute complaints regarding respiratory function today Hospitalist Physical - Physical exam Narrative exam: Physical Exam: VITAL SIGNS: Reviewed. GENERAL: The patient appears normally developed, Vital signs as documented. HEAD: No signs of head trauma. EYES: Pupils are equal. Extraocular motions intact. EARS: Hearing grossly intact. MOUTH: Oropharynx is normal. NECK: No adenopathy, no JVD. CHEST: Improvement in lung exam. CARDIAC: Regular rate and rhythm. S1 and S2, without murmurs, gallops, or rubs. VASCULAR: No Edema. Peripheral pulses normal and equal in all extremities. ABDOMEN: Soft, non tender and non distended. No rebound or guarding, and no masses palpated. Bowel Sounds normal. MUSCULOSKELETAL: Good range of motion of all major joints. Extremities without clubbing, cyanosis or edema. NEUROLOGIC EXAM: Alert and oriented x 4. no focal sensory or strength deficits. PSYCHIATRIC: Mood normal. SKIN: detail exam as documented in skin assessment - Constitutional Vitals: Temp Pulse Resp BP Pulse Ox 98.6 F 109 H 18 160/97 98 07/19/22 12:00 07/19/22 12:00 07/19/22 12:00 07/19/22 12:00 07/19/22 12:00 General appearance: Present: no acute distress, well-nourished HEART Score - HEART Score Troponin: Troponin T < 0.010 ng/mL (0.00-0.029) 07/17/22 23:32 Results - Labs CBC & Chem 7: 07/19/22 04:35 07/19/22 04:35 Labs: Laboratory Last Values WBC 20.0 K/mm3 (4.5-11.0) H 07/19/22 04:35 RBC 4.28 M/mm3 (3.65-5.03) 07/19/22 04:35 Hgb 11.7 gm/dl (10.1-14.3) 07/19/22 04:35 Hct 37.2 % (30.3-42.9) 07/19/22 04:35 MCV 87 fl (79-97) 07/19/22 04:35 MCH 27 pg (28-32) L 07/19/22 04:35 MCHC 31 % (30-34) 07/19/22 04:35 RDW 15.0 % (13.2-15.2) 07/19/22 04:35 Plt Count 260 K/mm3 (140-440) 07/19/22 04:35 Add Manual Diff Complete 07/19/22 04:35 Total Counted 100 07/19/22 04:35 Seg Neutrophils % Entrepreneurial Finance Professor 07/19/22 04:35 Seg Neuts % (Manual) 87.0 % (40.0-70.0) H 07/19/22 04:35 Band Neutrophils % 0 % 07/19/22 04:35 Lymphocytes % (Manual) 9.0 % (13.4-35.0) L 07/19/22 04:35 Reactive Lymphs % (Man) 0 % 07/19/22 04:35 Monocytes % (Manual) 4.0 % (0.0-7.3) 07/19/22 04:35 Eosinophils % (Manual) 0 % (0.0-4.3) 07/19/22 04:35 Basophils % (Manual) 0 % (0.0-1.8) 07/19/22 04:35 Metamyelocytes % 0 % 07/19/22 04:35 Myelocytes % 0 % 07/19/22 04:35 Promyelocytes % 0 % 07/19/22 04:35 Blast Cells % 0 % 07/19/22 04:35 Nucleated RBC % Not Reportable 07/19/22 04:35 Seg Neutrophils # Man 17.4 K/mm3 (1.8-7.7) H 07/19/22 04:35 Band Neutrophils # 0.0 K/mm3 07/19/22 04:35 Lymphocytes # (Manual) 1.8 K/mm3 (1.2-5.4) 07/19/22 04:35 Abs React Lymphs (Man) 0.0 K/mm3 07/19/22 04:35 Monocytes # (Manual) 0.8 K/mm3 (0.0-0.8) 07/19/22 04:35 Eosinophils # (Manual) 0.0 K/mm3 (0.0-0.4) 07/19/22 04:35 Basophils # (Manual) 0.0 K/mm3 (0.0-0.1) 07/19/22 04:35 Metamyelocytes # 0.0 K/mm3 07/19/22 04:35 Myelocytes # 0.0 K/mm3 07/19/22 04:35 Promyelocytes # 0.0 K/mm3 07/19/22 04:35 Blast Cells # 0.0 K/mm3 07/19/22 04:35 WBC Morphology Not Reportable 07/19/22 04:35 Hypersegmented Neuts Not Reportable 07/19/22 04:35 Hyposegmented Neuts Not Reportable 07/19/22 04:35 Hypogranular Neuts Not Reportable 07/19/22 04:35 Smudge Cells Not Reportable 07/19/22 04:35 Toxic Granulation Not Reportable 07/19/22 04:35 Toxic Vacuolation Not Reportable 07/19/22 04:35 Dohle Bodies Not Reportable 07/19/22 04:35 Pelger-Huet Anomaly Not Reportable 07/19/22 04:35 Elvin Rods Not Reportable 07/19/22 04:35 Platelet Estimate Not Reportable 07/19/22 04:35 Clumped Platelets Not Reportable 07/19/22 04:35 Plt Clumps, EDTA Not Reportable 07/19/22 04:35 Large Platelets Not Reportable 07/19/22 04:35 Giant Platelets Not Reportable 07/19/22 04:35 Platelet Satelliting Not Reportable 07/19/22 04:35 Plt Morphology Comment Not Reportable 07/19/22 04:35 RBC Morphology Normal 07/19/22 04:35 Dimorphic RBCs Not Reportable 07/19/22 04:35 Polychromasia Not Reportable 07/19/22 04:35 Hypochromasia Not Reportable 07/19/22 04:35 Poikilocytosis Not Reportable 07/19/22 04:35 Anisocytosis Not Reportable 07/19/22 04:35 Microcytosis Not Reportable 07/19/22 04:35 Macrocytosis Not Reportable 07/19/22 04:35 Spherocytes Not Reportable 07/19/22 04:35 Pappenheimer Bodies Not Reportable 07/19/22 04:35 Sickle Cells Not Reportable 07/19/22 04:35 Target Cells Not Reportable 07/19/22 04:35 Tear Drop Cells Not Reportable 07/19/22 04:35 Ovalocytes Not Reportable 07/19/22 04:35 Helmet Cells Not Reportable 07/19/22 04:35 Buckner-Marlin Bodies Not Reportable 07/19/22 04:35 [place] Rings Not Reportable 07/19/22 04:35 [place] Cells Not Reportable 07/19/22 04:35 Bite Cells Not Reportable 07/19/22 04:35 Crenated Cell Not Reportable 07/19/22 04:35 Elliptocytes Not Reportable 07/19/22 04:35 Acanthocytes (Spur) Not Reportable 07/19/22 04:35 Rouleaux Not Reportable 07/19/22 04:35 Hemoglobin C Crystals Not Reportable 07/19/22 04:35 Schistocytes Not Reportable 07/19/22 04:35 Malaria parasites Not Reportable 07/19/22 04:35 Sean Bodies Not Reportable 07/19/22 04:35 Hem Pathologist Commnt No 07/19/22 04:35 PT 13.0 Sec. (12.2-14.9) 07/17/22 23:32 INR 0.89 (0.87-1.13) 07/17/22 23:32 APTT 25.2 Sec. (24.2-36.6) 07/17/22 23:32 D-Dimer 135.00 ng/mlDDU (0-234) 07/18/22 19:59 Sodium 140 mmol/L (137-145) 07/19/22 04:35 Potassium 4.9 mmol/L (3.6-5.0) 07/19/22 04:35 Chloride 104.2 mmol/L (98-107) 07/19/22 04:35 Carbon Dioxide 27 mmol/L (22-30) 07/19/22 04:35 Anion Gap 14 mmol/L 07/19/22 04:35 BUN 15 mg/dL (7-17) 07/19/22 04:35 Creatinine 1.0 mg/dL (0.6-1.2) 07/19/22 04:35 Estimated GFR > 60 ml/min 07/19/22 04:35 BUN/Creatinine Ratio 15 % 07/19/22 04:35 Glucose 171 mg/dL (65-100) H 07/19/22 04:35 POC Glucose 155 mg/dL (70-105) H 07/19/22 08:18 Lactic Acid 1.60 mmol/L (0.7-2.0) 07/17/22 23:32 Calcium 9.4 mg/dL (8.4-10.2) 07/19/22 04:35 Magnesium 2.00 mg/dL (1.7-2.3) 07/17/22 23:32 Ferritin 123.5 ng/mL (10.0-200.0) 07/18/22 19:59 Total Bilirubin 0.20 mg/dL (0.1-1.2) 07/19/22 04:35 AST 18 units/L (5-40) 07/19/22 04:35 ALT 20 units/L (7-56) 07/19/22 04:35 Alkaline Phosphatase 66 units/L (35-129) 07/19/22 04:35 Lactate Dehydrogenase 274 units/L (91-180) H 07/18/22 19:59 Troponin T < 0.010 ng/mL (0.00-0.029) 07/17/22 23:32 C-Reactive Protein 2.50 mg/dL (0.00-1.30) H 07/18/22 11:50 Total Protein 6.5 g/dL (6.3-8.2) 07/19/22 04:35 Albumin 3.9 g/dL (3.9-5) 07/19/22 04:35 Albumin/Globulin Ratio 1.5 % 07/19/22 04:35 Procalcitonin < 0.05 ng/mL (<0.15) 07/18/22 12:13 Urine Color Yellow (Yellow) 07/17/22 Unknown Urine Turbidity Slightly cloudy (Clear) 07/17/22 Unknown Specific [place] (Man) 1.030 (1.003-1.030) 07/17/22 Unknown Ur Protein (Man) <30 mg dl mg/dL (Negative) 07/17/22 Unknown Ur Ketones (Man) Negative (Negative) 07/17/22 Unknown Ur Nitrite (Man) Negative (Negative) 07/17/22 Unknown Ur Reducing Substances Not Reportable 07/17/22 Unknown Urine Bilirubin (Man) Negative (Negative) 07/17/22 Unknown Leukocyte Esterase (Man) Negative (Negative) 07/17/22 Unknown Urine WBC (Auto) 22.0 /HPF (0.0-6.0) H 07/17/22 Unknown Urine RBC (Auto) 9.0 /HPF (0.0-6.0) 07/17/22 Unknown U Epithel Cells (Auto) 16.0 /HPF (0-13.0) H 07/17/22 Unknown Urine Bacteria (Auto) 2+ /HPF (Negative) 07/17/22 Unknown Urine RBC (Manual) 2+ (Negative) 07/17/22 Unknown Ur Renal Epithelial Cell 1 /LPF 07/17/22 Unknown Hyaline Casts 48 /LPF 07/17/22 Unknown Urine Mucus 2+ /HPF 07/17/22 Unknown Urine Yeast (Budding) 1+ /HPF 07/17/22 Unknown Nasal Screen MRSA (PCR) Positive (Negative) 07/18/22 06:30 Coronavirus (PCR) Positive (Negative) A 07/18/22 09:45 Microbiology: Microbiology 07/17/22 Unknown Urine,Clean Catch Urine Culture - Preliminary 07/17/22 23:18 Peripheral/Venous Blood Culture - Preliminary NO GROWTH AFTER 24 HOURS 07/17/22 23:32 Peripheral/Venous Blood Culture - Preliminary NO GROWTH AFTER 24 HOURS [place]/IV: Voiding Method Bedside Commode Active Medications - Current Medications Current Medications: Generic Name Dose Route Start Last Admin Trade Name Freq PRN Reason Stop Dose Admin Acetaminophen 650 mg 07/18/22 03:25 Acetaminophen 325 Mg Tab PO Q4H PRN Pain MILD(1-3)/Fever >100.5/BOOKER Albuterol 2.5 mg 07/18/22 03:25 Albuterol 2.5 Mg/3 Ml Nebu IH Q3HRT PRN Shortness Of Breath Albuterol/Ipratropium 1 ampul 07/18/22 08:00 07/19/22 08:55 Ipratropium/Albuterol Sulfate 3 Ml Ampul.Neb IH 1 ampul Q6HRT JOSE D Administration Amlodipine Besylate 5 mg 07/18/22 10:00 07/19/22 10:12 Amlodipine 5 Mg Tab PO 5 mg DAILY JOSE D Administration Arformoterol Tartrate 15 mcg 07/18/22 20:00 07/19/22 08:55 Arformoterol 15 Mcg/2 Ml Nebu IH 15 mcg Q12HRT JOSE D Administration Budesonide 0.5 mg 07/18/22 20:00 07/19/22 08:55 Budesonide 0.5 Mg/2 Ml Nebu IH 0.5 mg Q12HRT JOSE D Administration Cetirizine HCl 10 mg 07/18/22 10:00 07/19/22 10:13 Cetirizine 10 Mg Tab PO 10 mg QDAY JOSE D Administration Dextrose 50 ml 07/18/22 03:25 Dextrose 50% In Water (25gm) 50 Ml Syringe IV Q30MIN PRN Hypoglycemia Protocol Docusate Sodium 100 mg 07/18/22 22:00 07/19/22 10:13 Docusate Sodium 100 Mg Cap PO Not Given BID JOSE D Enoxaparin Sodium 40 mg 07/19/22 10:00 07/19/22 10:13 Enoxaparin 40 Mg/0.4 Ml Inj SUB-Q 40 mg QDAY JOSE D Administration Protocol Famotidine 20 mg 07/18/22 10:00 07/19/22 10:13 Famotidine 20 Mg Tab PO 20 mg BID JOSE D Administration Hydralazine HCl 10 mg 07/18/22 03:40 Hydralazine 20 Mg/1 Ml Inj IV Q6H PRN SBP >/=160; DBP >/=100 Remdesivir 100 mg/ Sodium 250 mls @ 500 mls/hr 07/19/22 14:00 Chloride IV 07/22/22 14:29 Q24HR@1400 [facility] Insulin Glargine 35 units 07/18/22 10:00 07/19/22 10:12 Insulin Glargine 100 Units/Ml SUB-Q 35 units DAILY [facility] Administration Insulin Human Lispro 0 unit 07/18/22 07:30 07/19/22 12:17 Insulin Lispro 100 Unit/Ml SUB-Q Not Given ACHS [facility] Protocol Losartan Potassium 25 mg 07/18/22 10:00 07/19/22 10:13 Losartan 25 Mg Tab PO 25 mg QDAY [facility] Administration Methylprednisolone Sodium Succinate 40 mg 07/18/22 06:00 07/19/22 05:33 Methylprednisolone Sod Succinate 40 Mg/1 Ml Inj IV 40 mg Q8HR JOSE D Administration Montelukast Sodium 10 mg 07/18/22 22:00 07/18/22 22:19 Montelukast 10 Mg Tab PO 10 mg QHS [facility] Administration Morphine Sulfate 2 mg 07/18/22 03:25 Morphine 2 Mg/1 Ml Inj IV Q4H PRN Pain, Moderate (4-6) Morphine Sulfate 4 mg 07/18/22 03:25 Morphine 4 Mg/1 Ml Inj IV Q4H PRN Pain , Severe (7-10) Ondansetron HCl 4 mg 07/18/22 03:25 Ondansetron 4 Mg/2 Ml Inj IV Q8H PRN Nausea And Vomiting Oxycodone/Acetaminophen 1 tab 07/18/22 01:49 Oxycodone /Acetaminophen 5-325mg Tab PO Q6H PRN Pain, Moderate (4-6) Sodium Chloride 10 ml 07/18/22 10:00 07/19/22 10:14 Sodium Chloride 0.9% 10 Ml Flush Syringe IV 10 ml BID JOSE D Administration Sodium Chloride 10 ml 07/18/22 03:25 Sodium Chloride 0.9% 10 Ml Flush Syringe IV PRN PRN LINE FLUSH Sodium Chloride 50 ml 07/18/22 20:30 07/18/22 20:40 Sodium Chloride 0.9% 50 Ml Ivpb IV 07/22/22 14:01 50 ml Q24HR@1400 [facility] Administration Nutrition/Malnutrition Assess - Dietary Evaluation Nutrition/Malnutrition Findings: Nutrition Notes Start: 07/18/22 14:53 Freq: Status: Active Protocol: Document 07/18/22 14:53 SEANTIM (Rec: 07/18/22 14:55 JOSEFINA [id number]) Nutrition Notes Need for Assessment generated from: MD Order,Education Initial or Follow up Brief Note Current Diagnosis Diabetes,Hypertension, Respiratory Failure Other Pertinent Diagnosis COVID-19 (+), Asthma exacerbation, UTI Current Diet Cardiac/Consistent CHO Labs/Tests POC Glu 190 Pertinent Medications Solumedrol Height 4 ft 11 in Weight 92.079 kg [place] Body Weight (kg) 43.18 BMI 41.0 Weight Status Morbidly Obese Subjective/Other Information RD consulted for diet education. Pt with multiple admissions since November 2021. Pt on BiPap support at this time. Burn Absent Trauma Absent Minimum of two criteria No Nutrition Intervention Follow-Up By: 07/23/22 Additional Comments F/U: intakes, diet education needs
[2022-07-19] MEDS ORDERED: REMDESIVIR 100 MG in SODIUM CHLORIDE 0.9% 250ML 250 ML IV SCH (14:00)
[2022-07-19] MEDS: SODIUM CHLORIDE 0.9% 50 ML IVPB IV SCH (14:23)
[2022-07-19] MEDS: MONTELUKAST 10 MG TAB PO SCH (23:02)
[2022-07-20] MEDS: methylPREDNISolone Sod Succinate 40 MG/1 ML INJ IV SCH (05:50)
[2022-07-20] MEDS: ARFORMOTEROL 15 MCG/2 ML NEBU IH SCH (07:06)
[2022-07-20] MEDS: BUDESONIDE 0.5 MG/2 ML NEBU IH SCH (07:07)
[2022-07-20 07:13] LABS: C-Reactive Protein 0.9 mg/dL (0.00-1.30)
[2022-07-20 07:19] LABS: Alanine Aminotransferase 18 units/L (7-56); Albumin 3.7 g/dL (3.9-5); BUN/Creatinine Ratio 24; Blood Urea Nitrogen 19 mg/dL (7-17); Calcium 8.8 mg/dL (8.4-10.2); Hemolysis Index 3
--- NOTE | 2022-07-20 07:52 | Discharge Summary ---
Providers - Providers Date of Admission: 07/18/22 01:49 Date of discharge: 07/20/22 Attending physician: LUIS ARMANDO OAKES MD 07/18/22 03:25 Consult to Physician [CONS] Routine Comment: Consulting Provider: TERRY AMBRIZ Physician Instructions: Reason For Exam: Asthma exacerbation 07/18/22 03:27 Consult to Dietitian/Nutrition [CONS] Routine Physician Instructions: Reason For Exam: Reason for Consult: Diet education 07/18/22 03:41 Consult to Physician [CONS] Routine Comment: Consulting Provider: ANSON PATINO Physician Instructions: Reason For Exam: covid 07/18/22 10:42 Consult to Physician [CONS] Routine Comment: Consulting Provider: BOB GARCIA Physician Instructions: Reason For Exam: covid pui Primary care physician: JANET SOOD Hospitalization Reason for admission: shortness of breath Condition: Good Hospital course: Assessment and plan: This is a 51-year-old female with hypertension, steroid-induced diabetes, severe asthma with multiple exacerbations s/p multiple intubations who presented to emergency department on 07/17 via EMS due to respiratory distress. Patient states that she was seen at [facility] and discharged from the emergency department after being told she was COVID-positive. Patient returned home and symptoms worsened therefore she called EMS. Work-up in the emergency department revealed leukocytosis, CXR showed no acute cardiopulmonary disease and due to respiratory distress patient was started on BiPAP. Patient was admitted to the hospitalist service with acute on chronic respiratory failure, asthma exacerbation and COVID-19 infection with consults to pulmonology. Hospital course to date: 07/18: Patient weaned from BiPAP to nasal cannula, COVID-19 PCR positive. Started on remdesivir, infectious disease consulted. Antibiotics discontinued due to low procalcitonin. CRP 2.5, will defer to ID regarding starting Actemra. Likely transfer to floor tomorrow morning. 07/19: On room air. downgrade to med/surg. Possible d/c tomorrow if patient respiratory status/VSS remain stable. 07/20: medically clear for d/c. d/c home with rx for trelegy, prednisone taper, albuterol nebs. Advised to isolate for 7-10 days per cdc guidance. follow up with primary care doctor in 1-2 weeks. Assessment/plan: This is a 51-year-old female with severe asthma, HTN and steroid-induced diabetes admitted with acute on chronic hypoxic respiratory failure and COVID-19 infection. Neuro: NAD -Reorientation as needed -Maintain sleep-wake cycle -As needed analgesia Cardiac: h/o HTN -Continue home amlodipine and Cozaar -Blood pressure monitoring per protocol Respiratory: Acute on chronic hypoxic respiratory failure , h/o severe asthma -Pulmonology consulted, appreciate recommendations -S/p continuous BiPAP -Weaned to nasal cannula during the day -BiPAP nightly -Atrovent, Pulmicort, Brovana -Solu-Medrol 40 mg every 8 -Continue home Singulair -SPO2 monitor per protocol -Supplemental oxygen as needed -Pulmonary hygiene GI: Morbid Obesity - BMI 41 - Counseled patient on the importance of weight loss, incorporating exercise, and dietary changes (lean meats, fresh fruits and vegetables, and water intake). Patient expresses understanding. - Time: +15 min -CC diet -BR: Colace : NAD -Monitor intake and output -Renally dose medications -Avoid nephrotoxic medications -Trend BMP ID: COVID 19 infection -Infectious disease consulted, appreciate recommendation -COVID 19 PCR (+) -Of note patient was diagnosed with COVID-19 at [place] but discharged home -Antibiotic therapy discontinued -Procalcitonin less than 0.05, CRP 2.5 -07/18 remdesivir for 5 days -Solu-Medrol 40 mg every 8 hours -Contact/droplet precautions -f/u blood culture -Monitor WBC and temperature curve -Of note patient is not vaccinated against COVID-19 -Trend COVID-19 inflammatory markers Endo: h/o steroid-induced diabetes -Avoid hypoglycemia -SSI -Accu-Cheks q. ACHS -Long-acting insulin, titrate as needed Heme: Leukocytosis -Trend CBC -Transfuse hemoglobin less than 7 -SCDs to BLE while in bed Disposition: 01 HOME / SELF CARE / HOMELESS Final Discharge Diagnosis (Prints w/discharge instructions): asthma exacerbation, covid 19 infection Time spent for discharge: 35 Core Measure Documentation - Palliative Care Palliative Care/ Comfort Measures: Not Applicable - Core Measures Any of the following diagnoses?: none Exam - Physical Exam Narrative exam: Physical Exam: VITAL SIGNS: Reviewed. GENERAL: The patient appears normally developed, Vital signs as documented. HEAD: No signs of head trauma. EYES: Pupils are equal. Extraocular motions intact. EARS: Hearing grossly intact. MOUTH: Oropharynx is normal. NECK: No adenopathy, no JVD. CHEST: Improvement in lung exam. CARDIAC: Regular rate and rhythm. S1 and S2, without murmurs, gallops, or rubs. VASCULAR: No Edema. Peripheral pulses normal and equal in all extremities. ABDOMEN: Soft, non tender and non distended. No rebound or guarding, and no masses palpated. Bowel Sounds normal. MUSCULOSKELETAL: Good range of motion of all major joints. Extremities without clubbing, cyanosis or edema. NEUROLOGIC EXAM: Alert and oriented x 4. no focal sensory or strength deficits. PSYCHIATRIC: Mood normal. SKIN: detail exam as documented in skin assessment - Constitutional Vitals: Temp Pulse Resp BP Pulse Ox 98.0 F 90 17 144/64 99 07/19/22 21:29 07/20/22 00:00 07/20/22 04:29 07/19/22 21:29 07/20/22 00:00 Plan Follow up with: JANET SOOD MD [Primary Care Provider] - 7 Days Prescriptions: Prednisone [predniSONE 10 mg (6-Day Pack, 21 Tabs)] 10 mg PO .TAPER 6 Days #1 tab ALBUTEROL NEB's [Proventil 0.083% NEBS] 2.5 mg IH QID PRN 30 Days #2 inh PRN Reason: Wheezing Fluticasone/Umeclidin/Vilanter [Trelegy Ellipta 100-62.5-25] 1 each IH QDAY 30 Days #1 pump
[2022-07-20] MEDS ORDERED: IPRATROPIUM/ALBUTEROL SULFATE 3 ML AMPUL.NEB IH SCH (08:00)
--- NOTE | 2022-07-20 08:23 | Progress Note ---
Assessment and Plan 51 y/o female with severe persistent asthma with flare secondary to COVID 07/20/22: Prolonged steroid taper at discharge: Pred 60 daily for 3 days, 40 daily for 3 days, 20 daily for 3 days, then 10 daily for 3 days then stop. Resume home asthma regimen. follow up in office as originally scheduled unless it is within 10 days of COVID diagnosis and we ask that she reschedule for a later date. 07/19/22: Continue steroids. Monitor blood sugar. Transition to COVID floor. 1. Higher than normal doses of COVID as patient has severe asthma 2. Await ID recs but given lung disease in favor of Remdesivir 3. Suggest checking CRP as well to see if Actemra is needed 4. Prone as tolerated during the day and sleep prone at night 5. 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 Thank you for consult, will continue to follow with you. Subjective Date of service: 07/20/22 Interval history: Successful transfer out of step down. Stable, back to baseline pulm function. Objective Vital Signs - 12hr 07/19/22 07/19/22 07/19/22 20:52 20:53 21:29 Temperature 98.0 F Pulse Rate 101 H Pulse Rate [ 105 H Bilateral] Pulse Rate [ From Monitor] Respiratory 16 Rate Respiratory 20 Rate [Bilateral ] Blood Pressure 144/64 O2 Sat by Pulse 98 98 Oximetry 07/19/22 07/20/22 07/20/22 23:32 00:00 04:29 Temperature Pulse Rate 89 Pulse Rate [ Bilateral] Pulse Rate [ 90 From Monitor] Respiratory 17 17 Rate Respiratory Rate [Bilateral ] Blood Pressure O2 Sat by Pulse 97 99 Oximetry CBC and BMP: 07/19/22 04:35 07/20/22 06:35 ABG, PT/INR, D-dimer: PT/INR, D-dimer PT 13.0 Sec. (12.2-14.9) 07/17/22 23:32 INR 0.89 (0.87-1.13) 07/17/22 23:32 D-Dimer 147.66 ng/mlDDU (0-234) 07/20/22 06:35 Abnormal lab findings: Abnormal Labs 07/17/22 07/17/22 07/17/22 23:32 23:32 Unknown WBC 13.0 H MCH RDW 15.4 H Seg Neuts % (Manual) 79.0 H Lymphocytes % (Manual) Seg Neutrophils # Man 10.3 H BUN Glucose 137 H POC Glucose Lactate Dehydrogenase C-Reactive Protein Albumin Urine WBC (Auto) 22.0 H U Epithel Cells (Auto) 16.0 H Coronavirus (PCR) 07/18/22 07/18/22 07/18/22 07:41 09:45 11:50 WBC MCH RDW Seg Neuts % (Manual) Lymphocytes % (Manual) Seg Neutrophils # Man BUN Glucose POC Glucose 190 H Lactate Dehydrogenase 300 H C-Reactive Protein 2.50 H Albumin Urine WBC (Auto) U Epithel Cells (Auto) Coronavirus (PCR) Positive A 07/18/22 07/18/22 07/18/22 12:28 16:45 19:59 WBC MCH RDW Seg Neuts % (Manual) Lymphocytes % (Manual) Seg Neutrophils # Man BUN Glucose POC Glucose 180 H 159 H Lactate Dehydrogenase 274 H C-Reactive Protein Albumin Urine WBC (Auto) U Epithel Cells (Auto) Coronavirus (PCR) 07/18/22 07/18/22 07/19/22 19:59 22:05 04:35 WBC 20.0 H MCH 27 L RDW Seg Neuts % (Manual) 87.0 H Lymphocytes % (Manual) 9.0 L Seg Neutrophils # Man 17.4 H BUN Glucose 204 H POC Glucose 164 H Lactate Dehydrogenase C-Reactive Protein Albumin Urine WBC (Auto) U Epithel Cells (Auto) Coronavirus (PCR) 07/19/22 07/19/22 07/19/22 04:35 08:18 11:48 WBC MCH RDW Seg Neuts % (Manual) Lymphocytes % (Manual) Seg Neutrophils # Man BUN Glucose 171 H POC Glucose 155 H 149 H Lactate Dehydrogenase C-Reactive Protein Albumin Urine WBC (Auto) U Epithel Cells (Auto) Coronavirus (PCR) 07/19/22 07/19/22 07/20/22 16:22 21:27 06:35 WBC MCH RDW Seg Neuts % (Manual) Lymphocytes % (Manual) Seg Neutrophils # Man BUN Glucose POC Glucose 146 H 199 H Lactate Dehydrogenase 216 H C-Reactive Protein Albumin Urine WBC (Auto) U Epithel Cells (Auto) Coronavirus (PCR) 07/20/22 06:35 WBC MCH RDW Seg Neuts % (Manual) Lymphocytes % (Manual) Seg Neutrophils # Man BUN 19 H Glucose 217 H POC Glucose Lactate Dehydrogenase C-Reactive Protein Albumin 3.7 L Urine WBC (Auto) U Epithel Cells (Auto) Coronavirus (PCR)
[2022-07-20] MEDS: INSULIN LISPRO 100 UNIT/ML SUB-Q SCH ×2 (09:51→11:43)
[2022-07-20] MEDS: INSULIN GLARGINE 100 UNITS/ML SUB-Q SCH (09:54)
[2022-07-20] MEDS: CETIRIZINE 10 MG TAB PO SCH (09:54)
[2022-07-20] MEDS: LOSARTAN 25 MG TAB PO SCH (09:54)
[2022-07-20] MEDS: FAMOTIDINE 20 MG TAB PO SCH (09:54)
[2022-07-20] MEDS: DOCUSATE SODIUM 100 MG CAP PO SCH (09:54)
[2022-07-20 09:55] VITALS: BP 140/65
[2022-07-20] MEDS: ENOXAPARIN 40 MG/0.4 ML INJ SUB-Q SCH (09:55)
[2022-07-20] MEDS: amLODIPine 5 MG TAB PO SCH (09:55)
[2022-07-20] MEDS ORDERED: methylPREDNISolone Sod Succinate 40 MG/1 ML INJ IV SCH (22:00)
== END 2022-07-20 12:36 | disposition home or self-care (01) | DRG 871 ==
LOC: ED 22:15 → IMCU 07-18 01:49 → 3A 07-19 17:38
PROVIDERS: ADMIT Hospitalist; ATTEND Internal Medicine
PROC: 5A09457 Assistance with Respiratory Ventilation, 24-96 Consecutive Hours, Continuous Positive Airway Pressure (ICD-10-PCS; principal; 2022-07-17)
PROC: XW033E5 Introduction of Remdesivir Anti-infective into Peripheral Vein, Percutaneous Approach, New Technology Group 5 (ICD-10-PCS; 2022-07-18)
DX: A41.9 Sepsis, unspecified organism (principal); J96.21 Acute and chronic respiratory failure with hypoxia; U07.1 COVID-19; N39.0 Urinary tract infection, site not specified; Z68.41 Body mass index [BMI] 40.0-44.9, adult; J45.901 Unspecified asthma with (acute) exacerbation; J44.9 Chronic obstructive pulmonary disease, unspecified; E66.01 Morbid (severe) obesity due to excess calories; I10 Essential (primary) hypertension; E11.9 Type 2 diabetes mellitus without complications; Z98.51 Tubal ligation status; Z91.018 Allergy to other foods; Z79.4 Long term (current) use of insulin; Z79.899 Other long term (current) drug therapy; Z82.49 Family history of ischemic heart disease and other diseases of the circulatory system
CPT/HCPCS: 36415; 71045; 80053; 81001; 82140; 82728; 82962; 83615; 83735; 84145; 84484; 85007; 85025; 85379; 85610; 85730; 86140; 87040; 87086; 87641; 93005; 94640; 94644; 94660; 94760; 99285; G0378; Q9967; J0696; J1650; J1815; J2920; J2930; J3475; J7030; J7050; U0003